=== PATIENT | male | born 1960 | race Two or more races ===

== ENCOUNTER 2023-02-28 09:05 | Outpatient (OUT) | payer OTHER, SELFPAY ==
[2023-02-28 09:24] LABS: Basophils Absolute Auto 0.1 10^3/uL (0.0-0.1); Basophils Percent Auto 0.7 % (0.2-2.0); Eosinophils Absolute Auto 0.2 10^3/uL (0.0-0.7); Eosinophils Percent Auto 1.9 % (0.9-7.0); Hematocrit 45.3 % (42.0-54.0); Immature Granulocytes Abs Auto 0.03 10^3/uL (0.00-0.03); Immature Granulocytes Pct Auto 0.3 % (0.0-0.5); Lymphocytes Absolute Auto 3.1 10^3/uL (1.2-3.8); Lymphocytes Percent Auto 35.9 % (20.5-60.0); Mean Corpuscular HGB Conc 33.1 g/dL (29.9-35.2); Mean Corpuscular Hemoglobin 31.5 pg (25.9-34.0); Mean Corpuscular Volume 95.2 fL (80.0-94.0); Mean Platelet Volume 10.9 fL (9.5-13.5); Monocytes Absolute Auto 0.6 10^3/uL (0.3-0.8); Monocytes Percent Auto 7.3 % (1.7-12.0); Neutrophils Absolute Auto 4.7 10^3/uL (1.4-6.5); Neutrophils Percent Auto 53.9 % (43.0-75.0); Platelet Count 167 10^3/uL (150-450); Red Blood Count 4.76 10^6/uL (4.70-6.10); Red Cell Distribution Width 12.6 % (11.0-15.0); White Blood Count 8.7 10^3/uL (4.0-11.0)
[2023-02-28 09:53] LABS: Estimated Average Glucose 197 mg/dL; Glycohemoglobin A1C 8.5 % (4.5-6.2)
[2023-02-28 10:07] LABS: Alanine Aminotransferase 49 U/L (16-63); Albumin Globulin Ratio 0.8; Albumin Level 3.2 g/dL (3.4-5.0); Alkaline Phosphatase 54 U/L (46-116); Anion Gap 12.4; Aspartate Amino Transferase 29 U/L (15-37); Bilirubin Direct 0.1 mg/dL (0.0-0.2); Bilirubin Total 0.7 mg/dL (0.2-1.0); Calcium 8.4 mg/dL (8.5-10.1); Carbon Dioxide 29.1 mmol/L (21.0-32.0); Chloride 104 mmol/L (98-107); Chol HDL Ratio 4.1; Cholesterol 165 mg/dL (<=200); Estimated GFR (African America >60 (>=60); Estimated GFR (Non-African Ame >60 (>=60); Globulin 4.1 g/dL; Glucose 209 mg/dL (74-106); HDL Cholesterol 40 mg/dL (40-60); LDL Cholesterol Calculated 98.8 mg/dL; Potassium 4.5 mmol/L (3.5-5.1); Sodium 141 mmol/L (136-145); Thyroid Stimulating Hormone 1.733 uIU/mL (0.358-3.740); Total Protein 7.3 g/dL (6.4-8.2); Triglycerides 131 mg/dL (<=150); VLDL CHOLESTEROL 26.2 mg/dL
[2023-02-28 11:05] LABS: Prostate Specific Antigen Scrn 1.24 ng/mL (<=4.00)
== END 2023-02-28 09:06 | disposition home or self-care (01) ==
LOC: LAB 09:06
PROVIDERS: PCP Family Medicine; Visit Provider Family Medicine
DX: Z00.00 Encounter for general adult medical examination without abnormal findings (principal); Z12.5 Encounter for screening for malignant neoplasm of prostate
CPT/HCPCS: 36415; 80048; 80061; 80076; 83036; 84443; 85025; G0103

== ENCOUNTER 2023-12-25 09:34 | Outpatient (OUT) | payer OTHER, SELFPAY ==
--- OUTSIDE RECORDS SUMMARY | 2023-12-25 09:58 | XMS_ITS | CCD ---
Author Organization [facility] Providers Care Enamel Pulverizer Name Role Phone Oskar Johnson Unavailable [phone] Stacie Muro Unavailable DominickGirma topete Unavailable ADAN, DR RENETTA Cobb Admitting Unavailable NADERER, DR RENETTA Cobb Attending Unavailable NADERER, DR RENETTA Cobb Primary Care Unavailable NADERER, DR RENETTA Cobb Consulting Unavailable NADERER, DR RENETTA Cobb Admitting Unavailable NADERER, DR RENETTA Cobb Attending Unavailable NADERER, DR RENETTA Cobb Primary Care Unavailable NADERER, DR RENETTA Cobb Consulting Unavailable NADERER, DR RENETTA Cobb Admitting Unavailable NADERER, DR RENETTA Cobb Attending Unavailable NADERER, DR RENETTA Cobb Primary Care Unavailable NADERER, DR RENETTA Cobb Consulting Unavailable [place], DR CASTILLO Primary Care Unavailable YOLI ., DR CASTILLO Consulting Unavailable NADERER, DR RENETTA Cobb Admitting Unavailable NADERER, DR RENETTA Cobb Attending Unavailable NADERER, DR RENETTA Cobb Consulting Unavailable STEPHANIE, MISBAH Consulting Unavailable LAITH, SHAIKH Isaac Consulting Unavailable KIZZY SINHA Consulting Unavailable JEAN PIERRE, ROVERTO Consulting Unavailable NADERER, RENETTA Attending Unavailable NADERER, RENETTA Attending Unavailable Medications Current Medications Medication Drug Class(es) Dates Sig (Normalized) Sig (Original) Ascorbic Acid (5 sources) Vitamin C Vitamin C Active glimepiride 4 mg oral tablet (5 sources) Sulfonylurea take 1 tablet by mouth every twelve hours Glimepiride 4 MG 1 tablet with breakfast or the first main meal of the day Orally BID Active Insulin Glargine / Lixisenatide (5 sources) Insulin Analog inject 15 [IU] by subcutaneous injection once daily Soliqua 100/33 15 Units Subcutaneous Daily Active lisinopril 20 mg oral tablet (5 sources) Angiotensin Converting Enzyme Inhibitor take 1 tablet by mouth every twenty-four hours Lisinopril 20 MG 1 tablet Orally Once a day Active metFORMIN hydrochloride 1000 mg oral tablet (5 sources) Biguanide take 1 tablet by mouth every twelve hours metFORMIN HCl 1000 MG 1 tablet with a meal Orally BID Active tamsulosin hydrochloride 0.4 mg oral capsule (2 sources) alpha-Adrenergic Shannan take 1 capsule by mouth every twenty-four hours Tamsulosin HCl 0.4 MG 1 capsule Orally Once a day Active Vitamin D3 (5 sources) Vitamin D3 Activ e Zinc (5 sources) Zinc Active Problems Active Problems Problem Classification Problem Date Documented Date Episodic/Chronic Coagulation and hemorrhagic disorders (1 source) Thrombocytopenia, unspecified; Translations: [THROMBOCYTOPENIA UNSPECIFIED] Onset: 08-21-2021 Chronic Diabetes mellitus with complications (8 sources) Disorder due to type 2 diabetes mellitus; Translations: [Type 2 diabetes mellitus with unspecified complications] Onset: 06-11-2021 Resolved: 06-11-2021 Chronic Diabetes mellitus without complication (1 source) Type 2 diabetes mellitus without complications; Translations: [TYPE 2 DM WITHOUT COMPLICATIONS] Onset: 08-21-2021 Chronic Diseases of white blood cells (1 source) Neutropenia, unspecified; Translations: [NEUTROPENIA UNSPECIFIED] Onset: 08-21-2021 Chronic Diverticulosis and diverticulitis (6 sources) Diverticular disease of colon; Translations: [Diverticulosis of intestine, part unspecified, without perforation or abscess without bleeding] Onset: 03-07-2021 Resolved: 03-07-2021 Chronic Esophageal disorders (5 sources) Gastroesophageal reflux disease; Translations: [Gastro-esophageal reflux disease without esophagitis] Onset: 06-11-2021 Resolved: 06-11-2021 Chronic Essential hypertension (1 source) Essential (primary) hypertension; Translations: [ESSENTIAL PRIMARY HYPERTENSION] Onset: 08-21-2021 Chronic Osteoarthritis (4 sources) Osteoarthritis of knee; Translations: [Osteoarthritis of knee, unspecified] Onset: 06-11-2021 Resolved: 06-11-2021 Chronic Other liver diseases (5 sources) Steatosis of liver; Translations: [Fatty (change of) liver, not elsewhere classified] Chronic Other liver diseases (2 sources) Fatty (change of) liver, not elsewhere classified; Translations: [Fatty liver K76.0] Onset: 03-07-2021 Resolved: 06-11-2021 Chronic Other nutritional; endocrine; and metabolic disorders (3 sources) Metabolic syndrome X; Translations: [Metabolic syndrome] Chronic Other nutritional; endocrine; and metabolic disorders (1 source) Metabolic syndrome Onset: 06-11-2021 Resolved: 06-11-2021 Chronic Unclassified (1 source) CONTACT W/AND (SUSP) EXPOS COVID-19; Translations: [CONTACT W/AND (SUSP) EXPOS COVID-19] Onset: 08-21-2021 Past or Other Problems Problem Classification Problem Date Documented Da te Episodic/Chronic Abdominal hernia (6 sources) Hiatal hernia; Translations: [Diaphragmatic hernia without obstruction or gangrene] Onset: 03-07-2021 Resolved: 03-07-2021 Episodic Abdominal pain (6 sources) Right upper quadrant pain; Translations: [Right upper quadrant pain] Onset: 03-07-2021 Resolved: 03-07-2021 Episodic Acute and unspecified renal failure (1 source) Acute kidney failure, unspecified; Translations: [ACUTE KIDNEY FAILURE UNSPECIFIED] Onset: 08-21-2021 Episodic Esophageal disorders (5 sources) Esophagitis; Translations: [Esophagitis] Episodic Hemorrhoids (6 sources) Hemorrhoids; Translations: [Unspecified hemorrhoids] Onset: 03-07-2021 Resolved: 03-07-2021 Episodic Other aftercare (1 source) 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; 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] Onset: 08-21-2021 Episodic Other circulatory disease (1 source) Elevated blood-pressure reading, without diagnosis of hypertension Onset: 06-11-2021 Resolved: 06-11-2021 Episodic Other lower respiratory disease (1 source) Acute respiratory distress; Translations: [ACUTE RESPIRATORY DISTRESS] Onset: 08-21-2021 Episodic Other nutritional; endocrine; and metabolic disorders (1 source) Abnormal weight gain Onset: 06-11-2021 Resolved: 06-11-2021 Episodic Other screening for suspected conditions (not mental disorders or infectious disease) (1 source) Encounter for screening for malignant neoplasm of prostate; Translations: [ENC SCREEN MALIG NEOPLASM PROSTATE] Onset: 09-12-2021 Episodic Septicemia (except in labor) (2 sources) Sepsis due to Escherichia coli [E. coli]; Translations: [Severe sepsis without septic shock] Onset: 08-21-2021 Episodic Unclassified (1 source) Esophagitis K20.90; Translations: [Esophagitis K20.90] Onset: 03-07-2021 Resolved: 03-07-2021 Urinary tract infections (3 sources) Acute pyelonephritis; Translations: [ACUTE PYELONEPHRITIS] Onset: 08-16-2021 Episodic Results Test Name Value Interpretation Reference Range Facility GLYCOHEMOGLOBIN A1Con 2022 ADA RECOMMENDATION SEE BELOW Normal [facility] Comment on above: Result Comment: ADA RECOMMENDED LIMIT 4.0 - 6.0 ADA THERAPEUTIC TARGET < 7.0 ACTION SUGGESTED > 7.0 Performed By: #### C FANTASMAMAN #### [facility] [address] [place] [address] Dr. Marta Ashford Glucose [Mass/Vol] 243 mg/dL Normal [facility] Comment on above: Performed By: #### C FANTASMAMAN #### [facility] [address] [place] [address] Dr. Marta Ashford HbA1c (Bld) [Mass fraction] 10.1 % Critically high 4.5-6.2 [facility] Comment on above: Performed By: #### C FANTASMAMAN #### [facility] [address] [place] [address] Dr. Marta Ashford GLYCOHEMOGLOBIN A1Con 2021 ADA RECOMMENDATION SEE BELOW Normal [facility] Comment on above: Result Comment: ADA RECOMMENDED LIMIT 4.0 - 6.0 ADA THERAPEUTIC TARGET < 7.0 ACTION SUGGESTED > 7.0 Performed By: #### A 1C #### [facility] [address] [place] [address] Dr. Marta Ashford Glucose [Mass/Vol] 266 mg/dL Normal [facility] Comment on above: Performed By: #### A 1C #### [facility] [address] [place] [address] Dr. Marta Ashford HbA1c (Bld) [Mass fraction] 10.9 % Critically high 4.5-6.2 [facility] Comment on above: Performed By: #### A 1C #### [facility] [address] [place] [address] Dr. Marta Ashford CBC AUTO DIFFon 09-10-2021 BASO # 0.1 103/ul Normal 0.0-0.1 [facility] Comment on above: Performed By: #### A 1C #### [facility] [address] [place] [address] Dr. Marta Ashford Basophils/100 WBC (Bld) 0.7 % Normal 0.2-2.0 [facility] Comment on above: Performed By: #### A 1C #### [facility] [address] [place] [address] Dr. Marta Ashford EO # 0.3 103/ul Normal 0.0-0.7 [facility] Comment on above: Performed By: #### A 1C #### [facility] [address] [place] [address] Dr. Marta Ashford Eosinophils/100 WBC (Bld) 2.9 % Normal 0.9-7.0 [facility] Comment on above: Performed By: #### A 1C #### [facility] [address] [place] [address] Dr. Marta Ashford Erythrocyte distribution width (RBC) [Ratio] 12.6 % Normal 11.0-15.0 [facility] Comment on above: Performed By: #### A 1C #### [facility] [address] [place] [address] Dr. Marta Ashford Hematocrit (Bld) [Volume fraction] 45.0 % Normal 42.0-54.0 [facility] Comment on above: Performed By: #### A 1C #### [facility] [address] [place] [address] Dr. Marta Ashford Hemoglobin (Bld) [Mass/Vol] 14.4 g/dL Normal 14.0-18.0 [facility] Comment on above: Performed By: #### A 1C #### [facility] [address] [place] [address] Dr. Marta Ashford IG # 0.06 10e3/ul Critically high 0.00-0.03 [facility] Comment on above: Performed By: #### A 1C #### [facility] [address] [place] [address] Dr. Marta Ashford IG % 0.6 % Critically high 0.0-0.5 [facility] Comment on above: Performed By: #### A 1C #### [facility] [address] [place] [address] Dr. Marta Ashford LYMPH # 3.3 103/ul Normal 1.2-3.8 [facility] Comment on above: Performed By: #### A 1C #### [facility] [address] [place] [address] Dr. Marta Ashford Lymphocytes/100 WBC (Bld) 34.5 % Normal 20.5-60.0 [facility] Comment on above: Performed By: #### A 1C #### [facility] [address] [place] [address] Dr. Marta Ashford MANUAL DIFF REQ NO Normal [facility] Comment on above: Performed By: #### A 1C #### [facility] [address] [place] [address] Dr. Marta Ashford MCH (RBC) [Entitic mass] 31.0 pg Normal 25.9-34.0 [facility] Comment on above: Performed By: #### A 1C #### [facility] [address] [place] [address] Dr. Marta Ashford MCHC (RBC) [Mass/Vol] 32.0 g/dL Normal 29.9-35.2 [facility] Comment on above: Performed By: #### A 1C #### [facility] [address] [place] [address] Dr. Marta Ashford MCV (RBC) [Entitic vol] 96.8 fL Critically high 80.0-94.0 [facility] Comment on above: Performed By: #### A 1C #### [facility] [address] [place] [address] Dr. Marta Ashford MONO # 0.7 103/ul Normal 0.3-0.8 [facility] Comment on above: Performed By: #### A 1C #### [facility] [address] [place] [address] Dr. Marta Ashford Monocytes/100 WBC (Bld) 7.8 % Normal 1.7-12.0 [facility] Comment on above: Performed By: #### A 1C #### [facility] [address] [address] [address] Marta Ashford NEUT # 5.1 103/ul Normal 1.4-6.5 [facility] [place] Comment on above: Performed By: #### A 1C #### [facility] [address] [address] [address] Marta Ashford Neutrophils/100 WBC (Bld) 53.5 % Normal 43.0-75.0 [facility] Comment on above: Performed By: #### A 1C #### [facility] [address] [address] [address] Marta Ashford Platelet mean volume (Bld) [Entitic vol] 12.3 fL Normal 9.5-13.5 [facility] Comment on above: Performed By: #### A 1C #### [facility] [address] [address] [address] Marta Ashford PLT 170 103/ul Normal 150-450 [facility] Comment on above: Performed By: #### A 1C #### [facility] [address] [address] [address] Marta Ashford RBC 4.65 106/ul Critically low 4.70-6.10 [facility] Comment on above: Performed By: #### A 1C #### [facility] [address] [place] [address] Dr. Marta Ashford WBC 9.5 103/ul Normal 4.0-11.0 [facility] Comment on above: Performed By: #### A 1C #### [facility] [address] [address] [address] Marta Ashford DIRECT LDLon 09-10-2021 Cholesterol in LDL [Mass/Vol] 96 mg/dL Normal [facility] Comment on above: Performed By: #### C BCMAN #### [facility] [address] [address] [address] Marta Ashford DLDL NORMAL SEE BELOW Normal [facility] Comment on above: Result Comment: <100 mg/dl OPTIMAL 100 - 129 mg/dl NEAR OR ABOVE OPTIMAL 130 - 159 mg/dl BORDERLINE HIGH 160 - 189 mg/dl HIGH >190 mg/dl VERY HIGH Performed By: #### C JIMENA #### [facility] [address] [place] [address] Dr. Marta Ashford GLYCOHEMOGLOBIN A1Con 2021 ADA RECOMMENDATION SEE BELOW Normal [facility] Comment on above: Result Comment: ADA RECOMMENDED LIMIT 4.0 - 6.0 ADA THERAPEUTIC TARGET < 7.0 ACTION SUGGESTED > 7.0 Performed By: #### A 1C #### [facility] [address] [place] [address] Dr. Marta Ashford Glucose [Mass/Vol] 223 mg/dL Normal [facility] Comment on above: Performed By: #### A 1C #### [facility] [address] [place] [address] Dr. Marta Ashford HbA1c (Bld) [Mass fraction] 9.4 % Critically high 4.5-6.2 [facility] Comment on above: Performed By: #### A 1C #### [facility] [address] [place] [address] Dr. Marta Ashford LIPID PROFILEon 09-10-2021 CHOL-HDL RATIO NORM SEE BELOW Normal [facility] Comment on above: Result Comment: 3.3 - 4.4 LOW RISK 4.4 - 7.1 AVERAGE RISK 7.1 - 11.0 MODERATE RISK >11.0 HIGH RISK Performed By: #### C JIMENA #### [facility] [address] [place] [address] Dr. Marta Ashford Cholesterol [Mass/Vol] 209 mg/dL Critically high <=200 [facility] Comment on above: Performed By: #### C JIMENA #### [facility] [address] [address] [address] Marta Ashford Cholesterol in HDL [Mass/Vol] 34 mg/dL Critically low 40-60 [facility] Comment on above: Performed By: #### C JIMENA #### [facility] [address] [place] [address] Dr. Marta Ashford Cholesterol.total/Chol esterol in HDL [Mass ratio] 6.1 {ratio} Normal [facility] Comment on above: Performed By: #### C JIMENA #### [facility] [address] [address] [address] Marta Ashford HDL NORMAL > or = 60 mg/dl - LO W CARDIOVASCULAR RISK <40 mg/dl - HIGH CARDIOVASCULAR RISK Normal [facility] Comment on above: Performed By: #### C JIMENA #### [facility] [address] [address] [address] Marta Ashford LDL CALC NORMAL SEE BELOW Normal [facility] Comment on above: Result Comment: <100 mg/dl OPTIMAL 100 - 129 mg/dl NEAR OR ABOVE OPTIMAL 130 - 159 mg/dl BORDERLINE HIGH 160 - 189 mg/dl HIGH >190 mg/dl VERY HIGH Performed By: #### C JIMENA #### [facility] [address] [address] [address] Marta Ashford Triglyceride [Mass/Vol] 591 mg/dL Critically high <=150 [facility] Comment on above: Performed By: #### C JIMENA #### [facility] [address] [place] [address] Dr. Marta Ashford VLDL CALC 118.2 mg/dL Normal [facility] Comment on above: Performed By: #### C JIMENA #### [facility] [address] [place] [address] Dr. Marta Ashford LIVER PROFILEon 09-10-2021 Albumin [Mass/Vol] 3.6 g/dL Normal 3.4-5.0 [facility] Comment on above: Performed By: #### C JIMENA #### [facility] [address] [place] [address] Dr. Marta Ashford Albumin/Globulin [Mass ratio] 0.9 {ratio} Normal [facility] Comment on above: Performed By: #### C JIMENA #### [facility] [address] [place] [address] Dr. Marta Ashford ALP [Catalytic activity/Vol] 75 U/L Normal 46-116 [facility] Comment on above: Performed By: #### C JIMENA #### [facility] [address] [address] [address] Marta Ashford ALT [Catalytic activity/Vol] 40 U/L Normal 16-63 [facility] Comment on above: Performed By: #### C JIMENA #### [facility] [address] [address] [address] Marta Ashford AST [Catalytic activity/Vol] 24 U/L Normal 15-37 [facility] Comment on above: Performed By: #### C JIMENA #### [facility] [address] [address] [address] Marta Ashford BILI, CONJUGATED 0.1 mg/dL Normal 0.0-0.2 [facility] Comment on above: Performed By: #### C JIMENA #### [facility] [address] [place] [address] Dr. Marta Ashford Bilirubin [Mass/Vol] 0.3 mg/dL Normal 0.2-1.0 [facility] Comment on above: Performed By: #### C JIMENA #### [facility] [address] [place] [address] Dr. Marta Ashford Globulin (S) [Mass/Vol] 4.1 g/dL Normal [facility] Comment on above: Performed By: #### C JIMENA #### [facility] [address] [place] [address] Dr. Marta Ashford Protein [Mass/Vol] 7.7 g/dL Normal 6.1-8.2 [facility] Comment on above: Performed By: #### C JIMENA #### [facility] [address] [place] [address] Dr. Marta Ashford PROF CHEM 8 (BAS METB)on Anion gap [Moles/Vol] 11.0 mmol/L Normal [facility] Comment on above: Performed By: #### C JIMENA #### [facility] [address] [place] [address] Dr. Marta Ashford Calcium [Mass/Vol] 8.6 mg/dL Normal 8.5-10.1 [facility] Comment on above: Performed By: #### C JIMENA #### [facility] [address] [address] [address] Marta Ashford Chloride [Moles/Vol] 99 mmol/L Normal 98-107 [facility] Comment on above: Performed By: #### C JIMENA #### [facility] [address] [place] [address] Dr. Marta Ashford CO2 [Moles/Vol] 27.0 mmol/L Normal 21.0-32.0 [facility] Comment on above: Performed By: #### C JIMENA #### [facility] [address] [address] [address] Marta Ashford Creatinine [Mass/Vol] 1.00 mg/dL Normal 0.70-1.30 [facility] Comment on above: Performed By: #### C JIMENA #### [facility] [address] [address] [address] Marta Ashford EGFR-AF [place] ISLANDER >60 Normal >=60 [facility] Comment on above: Performed By: #### C JIMENA #### [facility] [address] [place] [address] Dr. Marta Ashford EGFR-NON AF [place]ER >60 Normal >=60 [facility] Comment on above: Performed By: #### C JIMENA #### [facility] [address] [place] [address] Dr. Marta Ashford Glucose [Mass/Vol] 289 mg/dL Critically high 74-106 [facility] Comment on above: Performed By: #### C JIMENA #### [facility] [address] [address] [address] Marta Ashford Potassium [Moles/Vol] 4.0 mmol/L Normal 3.5-5.1 [facility] Comment on above: Performed By: #### C JIMENA #### [facility] [address] [place] [address] Dr. Marta Ashford Sodium [Moles/Vol] 133 mmol/L Critically low 136-145 [facility] Comment on above: Performed By: #### C JIMENA #### [facility] [address] [place] [address] Dr. Marta Ashford Urea nitrogen [Mass/Vol] 21.0 mg/dL Critically high 7.0-18.0 [facility] Comment on above: Performed By: #### C JIMENA #### [facility] [address] [place] [address] Dr. Marta Ashford Urea nitrogen/Creatinine [Mass ratio] 21.0 mg/mg Normal [facility] Comment on above: Performed By: #### C JIMENA #### [facility] [address] [place] [address] Dr. Marta Ashford TSHon 09-10-2021 TSH 2.331 uIU/mL Normal 0.470-4.680 [facility] Comment on above: Performed By: #### C JIMENA #### [facility] [address] [place] [address] Dr. Marta Ashford TSH RANGE SEE BELOW Normal [facility] Comment on above: Result Comment: <0.3 4 UIU/ml HYPERTHYROID 0.34-5.60 UIU/ml EUTHYROID >5.60 UIU/ml HYPOTHYROID Performed By: #### C JIMENA #### [facility] [address] [place] [address] Dr. Marta Ashford BLOOD CULTURE ID/SENSon 08-09 Aerobe ID + Suscept Final report Abnormal [facility] Comment on above: Performed By: #### C XPOSBL #### [facility] [address] [place] [address] Dr. Marta Ashford Antimicrobial Susceptibility Comment Normal [facility] Comment on above: Result Comment: S = Susceptible; I = Intermediate; R = Resistant P = Positive; N = Negative MICS are expressed in micrograms per mL Antibiotic RSLT#1 RSLT#2 RSLT#3 RSLT#4 Amoxicillin/Clavulanic Acid S Ampicillin R Cefepime S Ceftriaxone S Cefuroxime S Ciprofloxacin S Ertapenem S Gentamicin S Imipenem S Levofloxacin S Meropenem S Piperacillin/Tazobactam S Tetracycline S Tobramycin S Trimethoprim/Sulfa S Performed By: #### C XPOSBL #### [facility] [address] [place] [address] Dr. Marta Ashford Result 1 Comment Abnormal [facility] Comment on above: Result Comment: Esch erichia coli, identified by an automated biochemical system. Received aerobic bottle only. Performed By: #### C XPOSBL #### [facility] [address] [place] [address] Dr. Marta Ashford CBC AUTO DIFFon 08-18-2021 BASO # 0.1 103/ul Normal 0.0-0.1 [facility] Comment on above: Performed By: #### A 1C #### [facility] [address] [place] [address] Dr. Marta Ashford Basophils/100 WBC (Bld) 0.5 % Normal 0.2-2.0 [facility] Comment on above: Performed By: #### A 1C #### [facility] [address] [place] [address] Dr. Marta Ashford EO # 0.1 103/ul Normal 0.0-0.7 [facility] Comment on above: Performed By: #### A 1C #### [facility] [address] [place] [address] Dr. Marta Ashford Eosinophils/100 WBC (Bld) 0.8 % Critically low 0.9-7.0 [facility] Comment on above: Performed By: #### A 1C #### [facility] [address] [place] [address] Dr. Marta Ashford Erythrocyte distribution width (RBC) [Ratio] 12.8 % Normal 11.0-15.0 [facility] Comment on above: Performed By: #### A 1C #### [facility] [address] [place] [address] Dr. Marta Ashford Hematocrit (Bld) [Volume fraction] 40.1 % Critically low 42.0-54.0 [facility] [facility] Comment on above: Performed By: #### A 1C #### [facility] [address] [place] [address] Dr. Marta Ashford Hemoglobin (Bld) [Mass/Vol] 12.9 g/dL Critically low 14.0-18.0 [facility] Comment on above: Performed By: #### A 1C #### [facility] [address] [address] [address] Marta Ashford IG # 0.17 10e3/ul Critically high 0.00-0.03 [facility] Comment on above: Performed By: #### A 1C #### [facility] [address] [address] [address] Marta Ashford IG % 1.0 % Critically high 0.0-0.5 [facility] [place] Comment on above: Performed By: #### A 1C #### [facility] [address] [address] [address] Marta Ashford LYMPH # 3.3 103/ul Normal 1.2-3.8 [facility] Comment on above: Performed By: #### A 1C #### [facility] [address] [place] [address] Dr. Marta Ashford Lymphocytes/100 WBC (Bld) 19.0 % Critically low 20.5-60.0 [facility] [place] Comment on above: Performed By: #### A 1C #### [facility] [address] [place] [address] Dr. Marta Ashford MANUAL DIFF REQ NO Normal [facility] [place] Comment on above: Performed By: #### A 1C #### [facility] [address] [place] [address] Dr. Marta Ashford MCH (RBC) [Entitic mass] 30.5 pg Normal 25.9-34.0 [facility] [place] Comment on above: Performed By: #### A 1C #### [facility] [address] [address] [address] Marta Ashford MCHC (RBC) [Mass/Vol] 32.2 g/dL Normal 29.9-35.2 [facility] [place] Comment on above: Performed By: #### A 1C #### [facility] [address] [place] [address] Dr. Marta Ashford MCV (RBC) [Entitic vol] 94.8 fL Critically high 80.0-94.0 [facility] [place] Comment on above: Performed By: #### A 1C #### [facility] [address] [address] [address] Marta Ashford MONO # 1.2 103/ul Critically high 0.3-0.8 [facility] Comment on above: Performed By: #### A 1C #### [facility] [address] [place] [address] Dr. Marta Ashford Monocytes/100 WBC (Bld) 6.7 % Normal 1.7-12.0 [facility] Comment on above: Performed By: #### A 1C #### [facility] [address] [place] [address] Dr. Marta Ashford NEUT # 12.5 103/ul Critically high 1.4-6.5 [facility] [place] [facility] Comment on above: Performed By: #### A 1C #### [facility] [address] [place] [address] Dr. Marta Ashford Neutrophils/100 WBC (Bld) 72.0 % Normal 43.0-75.0 [facility] Comment on above: Performed By: #### A 1C #### [facility] [address] [place] [address] Dr. Marta Ashford Platelet mean volume (Bld) [Entitic vol] 11.8 fL Normal 9.5-13.5 [facility] Comment on above: Performed By: #### A 1C #### [facility] [address] [place] [address] Dr. Marta Ashford PLT 149 103/ul Critically low 150-450 [facility] Comment on above: Performed By: #### A 1C #### [facility] [address] [place] [address] Dr. Marta Ashford RBC 4.23 106/ul Critically low 4.70-6.10 [facility] Comment on above: Performed By: #### A 1C #### [facility] [address] [place] [address] Dr. Marta Ashford WBC 17.4 103/ul Critically high 4.0-11.0 [facility] [place] [facility] Comment on above: Performed By: #### A 1C #### [facility] [address] [place] [address] Dr. Marta Ashford CULTURE URINEon 04-10-2022 CULTURE URINE Isolate 1 Escherichia coli >100,000 cfu/ml of ORGANISM 1 Escherichia coli ANTIBIOTIC M.I.C RX STATUS Ampicillin >=32 R F Ampicillin/Sulbactam >=32 R F Piperacillin/Tazobact am <=4 S F Cefazolin <=4 S F Ceftazidime <=1 S F Ceftriaxone <=1 S F Ertapenem <=0.5 S F Imipenem <=0.25 S F Amikacin <=2 S F Gentamicin <=1 S F Tobramycin <=1 S F Ciprofloxacin <=0.25 S F Levofloxacin <=0.12 S F Nitrofurantoin <=16 S F Trimethoprim/Sulfamet hoxazole <=20 S F Normal [facility] [place] Comment on above: Performed By: #### A 1C #### [facility] [address] [place] [address] Dr. Marta Ashford PH VENOUS BLOODon 08-18-2021 PCO2 VENOUS 36.1 mmHg Critically low 40.0-52.0 [facility] [place] Comment on above: Performed By: #### A 1C #### [facility] [address] [place] [address] Dr. Marta Ashford pH VENOUS 7.452 Critically high 7.330-7.430 [facility] Comment on above: Performed By: #### A 1C #### [facility] [address] [place] [address] Dr. Marta Ashford POINT OF CARE GLUCOSEon 08-09 Glucose [Mass/Vol] 276 mg/dL Critically high 74-106 [facility] Comment on above: Performed By: #### P OCGLUC #### [facility] [address] [place] [address] Dr. Marta Ashford PROF CHEM 8 (BAS METB)on Anion gap [Moles/Vol] 12.5 mmol/L Normal [facility] Comment on above: Performed By: #### P HVEN #### [facility] [address] [place] [address] Dr. Marta Ashford Calcium [Mass/Vol] 8.5 mg/dL Normal 8.5-10.1 [facility] Comment on above: Performed By: #### P HVEN #### [facility] [address] [address] [address] Marta Ashford Chloride [Moles/Vol] 105 mmol/L Normal 98-107 [facility] [place] Comment on above: Performed By: #### P HVEN #### [facility] [address] [address] [address] Marta Ashford CO2 [Moles/Vol] 25.5 mmol/L Normal 22.0-30.0 [facility] Comment on above: Performed By: #### P HVEN #### [facility] [address] [address] [address] Marta Ashford Creatinine [Mass/Vol] 0.90 mg/dL Normal 0.66-1.25 [facility] [place] Comment on above: Performed By: #### P HVEN #### [facility] [address] [address] [address] Marta Ashford EGFR-AF [place]ER >60 Normal >=60 [facility] Comment on above: Performed By: #### P HVEN #### [facility] [address] [address] [address] Marta Ashford EGFR-NON AF [place] >60 Normal >=60 [facility] [place] Comment on above: Performed By: #### P HVEN #### [facility] [address] [address] [address] Marta Ashford Glucose [Mass/Vol] 239 mg/dL Critically high 74-106 [facility] Comment on above: Performed By: #### P HVEN #### [facility] [address] [address] [address] Marta Ashford Potassium [Moles/Vol] 4.0 mmol/L Normal 3.4-5.0 [facility] [place] Comment on above: Performed By: #### P HVEN #### [facility] [address] [address] [address] Marta Ashford Sodium [Moles/Vol] 139 mmol/L Normal 137-145 [facility] Comment on above: Performed By: #### P HVEN #### [facility] [address] [place] [address] Dr. Marta Ashford Urea nitrogen [Mass/Vol] 13.0 mg/dL Normal 7.0-18.0 [facility] [place] Comment on above: Performed By: #### P HVEN #### [facility] [address] [place] [address] Dr. Marta Ashford Urea nitrogen/Creatinine [Mass ratio] 14.4 mg/mg Normal [facility] Comment on above: Performed By: #### P HVEN #### [facility] [address] [place] [address] Dr. Marta Ashford CBC W MANUAL DIFFon 08-18-19 22 ATYPICAL LYMPH # Normal [facility] Comment on above: Performed By: #### C JIMENA #### [facility] [address] [place] [address] Dr. Marta Ashford ATYPICAL LYMPH % Normal [facility] Comment on above: Performed By: #### C JIMENA #### [facility] [address] [place] [address] Dr. Marta Ashford BAND # 2.7 103/ul Critically high 0.0-0.3 [facility] Comment on above: Performed By: #### C JIMENA #### [facility] [address] [place] [address] Dr. Marta Ashford BAND % 15 % Critically high 0-5 [facility] Comment on above: Performed By: #### C JIMENA #### [facility] [address] [place] [address] Dr. Marta Ashford BASOM # 0.00 103/ul Normal 0.00-0.10 [facility] Comment on above: Performed By: #### C JIMENA #### [facility] [address] [place] [address] Dr. Marta Ashford BASOM % 0.0 % Critically low 0.2-2.0 [facility] Comment on above: Performed By: #### C JIMENA #### [facility] [address] [place] [address] Dr. Marta Ashford BLAST # Normal [facility] [place] Comment on above: Performed By: #### C BCVALERY #### [facility] [address] [address] [address] Marta Ashford BLAST % Normal [facility] [place] Comment on above: Performed By: #### C BCVALERY #### [facility] [address] [address] [address] Marta Ashford CORRECTED WBC Normal 4.0-11.0 [facility] Comment on above: Performed By: #### C BCMAN #### [facility] [address] [address] [address] Marta Ashford EOS # 0.00 103/ul Normal 0.00-0.70 [facility] [place] Comment on above: Performed By: #### C BCVALERY #### [facility] [address] [place] [address] Dr. Marta Ashford EOS% 0.0 % Critically low 0.9-7.0 [facility] Comment on above: Performed By: #### C JIMENA #### [facility] [address] [place] [address] Dr. Marta Ashford HCT 37.5 % Critically low 42.0-54.0 [facility] Comment on above: Performed By: #### C JIMENA #### [facility] [address] [place] [address] Dr. Marta Ashford HGB 12.1 g/dl Critically low 14.0-18.0 [facility] Comment on above: Performed By: #### C BCVALERY #### [facility] [address] [place] [address] Dr. Marta Ashford LYMPHM # 3.20 103/ul Normal 1.20-3.80 [facility] [place] Comment on above: Performed By: #### C BCVALERY #### [facility] [address] [place] [address] Dr. Marta Ashford LYMPHM% 18.0 % Critically low 20.5-60.0 [facility] Comment on above: Performed By: #### C JIMENA #### [facility] [address] [address] [address] Marta Ashford MCH 31.2 pg Normal 25.9-34.0 [facility] [place] Comment on above: Performed By: #### C JIMENA #### [facility] [address] [address] [address] Marta Ashford MCHC 32.3 g/dl Normal 29.9-35.2 [facility] [place] Comment on above: Performed By: #### C JIMENA #### [facility] [address] [address] [address] Marta Ashford MCV 96.6 fL Critically high 80.0-94.0 [facility] [place] Comment on above: Performed By: #### C BCVALERY #### [facility] [address] [place] [address] Dr. Marta Ashford METAMYELOCYTE # Normal [facility] Comment on above: Performed By: #### C JIMENA #### [facility] [address] [place] [address] Dr. Marta Ashford METAMYELOCYTE % Normal [facility] Comment on above: Performed By: #### C JIMENA #### [facility] [address] [place] [address] Dr. Marta Ashford MONOM# 1.25 103/ul Critically high 0.30-0.80 [facility] Comment on above: Performed By: #### C JIMENA #### [facility] [address] [place] [address] Dr. Marta Ashford MONOM% 7.0 % Normal 1.7-12.0 [facility] [place] Comment on above: Performed By: #### C JIMENA #### [facility] [address] [place] [address] Dr. Marta Ashford MPV 11.4 fL Normal 9.5-13.5 [facility] [place] Comment on above: Performed By: #### C JIMENA #### [facility] [address] [place] [address] Dr. Marta Ashford MYELOCYTE # Normal [facility] Comment on above: Performed By: #### C JIMENA #### [facility] [address] [address] [address] Marta Ashford MYELOCYTE % Normal [facility] [place] Comment on above: Performed By: #### C JIMENA #### [facility] [address] [address] [address] Marta Ashford NRBC Normal [facility] Comment on above: Performed By: #### C BCVALERY #### [facility] [address] [address] [address] Marta Ashford PLT 106 103/ul Critically low 150-450 [facility] Comment on above: Performed By: #### C JIMENA #### [facility] [address] [address] [address] Marta Ashford RBC 3.88 106/ul Critically low 4.70-6.10 [facility] [place] Comment on above: Performed By: #### C JIMENA #### [facility] [address] [address] [address] Marta Ashford RDW 13.1 % Normal 11.0-15.0 [facility] [place] Comment on above: Performed By: #### C JIMENA #### [facility] [address] [address] [address] Marta Ashford SEG # 10.68 103/ul Critically high 1.40-6.50 [facility] Comment on above: Performed By: #### C JIMENA #### [facility] [address] [address] [address] Marta Ashford SEG % 60.0 % Normal 43.0-75.0 [facility] [place] Comment on above: Performed By: #### C BCMAN #### [facility] [address] [address] [address] Marta Ashford WBC 17.8 103/ul Critically high 4.0-11.0 [facility] Comment on above: Performed By: #### C BCMAN #### [facility] [address] [address] [address] Marta Ashford PH VENOUS BLOODon 08-17-2021 PCO2 VENOUS 37.5 mmHg Critically low 40.0-52.0 [facility] [place] Comment on above: Performed By: #### P HVEN #### [facility] [address] [address] [address] Marta Ashford pH VENOUS 7.390 Normal 7.330-7.430 [facility] [place] Comment on above: Performed By: #### P HVEN #### [facility] [address] [address] [address] Marta Ashford POINT OF CARE GLUCOSEon Glucose [Mass/Vol] 261 mg/dL Critically high [facility] Comment on above: Performed By: #### A 1C #### [facility] [address] [address] [address] Marta Ashford Glucose [Mass/Vol] 213 mg/dL Critically high [address] [place] [address] Comment on above: Performed By: #### A 1C #### [facility] [address] [place] [address] Dr. Marta Ashford Glucose [Mass/Vol] 305 mg/dL Critically high [facility] Comment on above: Performed By: #### A 1C #### [facility] [address] [place] [address] Dr. Marta Ashford PROF CHEM 8 (BAS METB)on Anion gap [Moles/Vol] 13.8 mmol/L Normal [facility] Comment on above: Performed By: #### A 1C #### [facility] [address] [address] [address] Marta Ashford Calcium [Mass/Vol] 7.3 mg/dL Critically low 8.5-10.1 [facility] Comment on above: Performed By: #### A 1C #### [facility] [address] [address] [address] Marta Ashford Chloride [Moles/Vol] 108 mmol/L Critically high 98-107 [facility] [place] Comment on above: Performed By: #### A 1C #### [facility] [address] [place] [address] Dr. Marta Ashford CO2 [Moles/Vol] 22.2 mmol/L Normal 22.0-30.0 [facility] Comment on above: Performed By: #### A 1C #### [facility] [address] [address] [address] Marta Ashford Creatinine [Mass/Vol] 0.95 mg/dL Normal 0.66-1.25 [facility] [place] Comment on above: Performed By: #### A 1C #### [facility] [address] [address] [address] Marta Ashford EGFR-AF [place] >60 Normal >=60 [facility] Comment on above: Performed By: #### A 1C #### [facility] [address] [address] [address] Marta Ashford EGFR-NON AF [place] >60 Normal >=60 [facility] [place] Comment on above: Performed By: #### A 1C #### [facility] [address] [address] [address] Marta Ashford Glucose [Mass/Vol] 181 mg/dL Critically high 74-106 [facility] Comment on above: Performed By: #### A 1C #### [facility] [address] [address] [address] Marta Ashford Potassium [Moles/Vol] 4.0 mmol/L Normal 3.4-5.0 [facility] [place] Comment on above: Performed By: #### A 1C #### [facility] [address] [place] [address] Dr. Marta Ashford Sodium [Moles/Vol] 140 mmol/L Normal 137-145 [facility] Comment on above: Performed By: #### A 1C #### [facility] [address] [place] [address] Dr. Marta Ashford Urea nitrogen [Mass/Vol] 17.0 mg/dL Normal 7.0-18.0 [facility] [place] Comment on above: Performed By: #### A 1C #### [facility] [address] [place] [address] Dr. Marta Ashford Urea nitrogen/Creatinine [Mass ratio] 17.9 mg/mg Normal [facility] [place] Comment on above: Performed By: #### A 1C #### [facility] [address] [place] [address] Dr. Marta Ashford BLOOD CULTURE ID PANELon A. baumannii Not detected Normal [facility] Comment on above: Performed By: #### A 1C #### [facility] [address] [place] [address] Dr. Marta GONSALEZD CONTROLS PASSED Normal [facility] Comment on above: Performed By: #### A 1C #### [facility] [address] [place] [address] Dr. Marta GONSALEZDBTHD BLOOD CULTURE BOTTLE INFORMATION [facility] Comment on above: Performed By: #### A 1C #### [facility] [address] [place] [address] Dr. Marta Ashford BCIDHD1 ANTIMICROBIAL RESISTANCE GENES [facility] Comment on above: Performed By: #### A 1C #### [facility] [address] [place] [address] Dr. Marta GONSALEZDHD2 SEE BELOW [facility] Comment on above: Result Comment: KPC- carbapenem resistance gene, mecA- methecillin resistance gene, van A/B- vancomycin resistance gene Note: Antimicrobial resitance can occur via multiple mechanisms. A Not Detected result for the [employer] antomicrobial resistance gene assays does not indicate antimicrobial susceptibility. Subculturing is required for specis identificationand susceptibility testing of isolates. Performed By: #### A 1C #### [facility] [address] [place] [address] Dr. Marta GONSALEZDHD3 Positive [facility] Comment on above: Performed By: #### A 1C #### [facility] [address] [place] [address] Dr. Marta GONSALEZDHD4 Negative [facility] Comment on above: Performed By: #### A 1C #### [facility] [address] [place] [address] Dr. Marta GONSALEZDHD5 YEAST [facility] Comment on above: Performed By: #### A 1C #### [facility] [address] [place] [address] Dr. Marta GONSALEZDHD6 SEE BELOW Normal [facility] [place] Comment on above: Result Comment: Note : All genus and species BCID [employer] results will be verified post subculturing via Maldi-Tof MS testing methodology. Performed By: #### A 1C #### [facility] [address] [place] [address] Dr. Marta Castillo Set: Set 2 Normal [facility] [place] Comment on above: Performed By: #### A 1C #### [facility] [address] [place] [address] Dr. Marta Ashford Bottle: Aerobic Normal [facility] [place] Comment on above: Performed By: #### A 1C #### [facility] [address] [place] [address] Dr. Marta Ashford Surekha albicans Not detected Normal [facility] Comment on above: Performed By: #### A 1C #### [facility] [address] [place] [address] Dr. Marta Ashford Surekha glabrata Not detected Normal [facility] Comment on above: Performed By: #### A 1C #### [facility] [address] [place] [address] Dr. Marta Ashford Surekha Krusei Not detected Normal [facility] Comment on above: Performed By: #### A 1C #### [facility] [address] [place] [address] Dr. Marta Ashford Surekha Parapsilosis Not detected Normal [facility] Comment on above: Performed By: #### A 1C #### [facility] [address] [place] [address] Dr. Marta Ashford Surekha Tropicalis Not detected Normal [facility] [place] Comment on above: Performed By: #### A 1C #### [facility] [address] [place] [address] Dr. Marta Ashford E. Cloacae complex Not detected Normal [facility] [place] Comment on above: Performed By: #### A 1C #### [facility] [address] [place] [address] Dr. Marta Ashford Enterobacteriaceae Detected Critically abnormal [facility] Comment on above: Performed By: #### A 1C #### [facility] [address] [place] [address] Dr. Marta Ashford Enterococcus Not detected Normal [facility] Comment on above: Performed By: #### A 1C #### [facility] [address] [place] [address] Dr. Marta Ashford Escheria coli Detected Critically abnormal [facility] [place] Comment on above: Performed By: #### A 1C #### [facility] [address] [place] [address] Dr. Marta Ashford K. oxytoca Not detected Normal [facility] [place] Comment on above: Performed By: #### A 1C #### [facility] [address] [place] [address] Dr. Marta Ashford K. pneumoniae Not detected Normal [facility] [place] Comment on above: Performed By: #### A 1C #### [facility] [address] [place] [address] Dr. Marta Ashford KPC Resistant Gene Not detected Normal [facility] [place] Comment on above: Performed By: #### A 1C #### [facility] [address] [place] [address] Dr. Marta Ashford List. monocytogenes Not detected Normal [facility] [place] Comment on above: Performed By: #### A 1C #### [facility] [address] [place] [address] Dr. Marta Ashford mecA Resistant Gene Not Applicable Normal [facility] Comment on above: Performed By: #### A 1C #### [facility] [address] [place] [address] Dr. Marta Ashford Proteus Not detected Normal [facility] [place] Comment on above: Performed By: #### A 1C #### [facility] [address] [place] [address] Dr. Marta Ashford Pseud. aeruginosa Not detected Normal [facility] Comment on above: Performed By: #### A 1C #### [facility] [address] [place] [address] Dr. Marta Ashford Seratia marcescens Not detected Normal [facility] [place] Comment on above: Performed By: #### A 1C #### [facility] [address] [place] [address] Dr. Marta Ashford Site: left hand Normal [facility] [facility] Comment on above: Performed By: #### A 1C #### [facility] [address] [place] [address] Dr. Marta Ashford Staph. aureus Not detected Normal [facility] Comment on above: Performed By: #### A 1C #### [facility] [address] [place] [address] Dr. Marta Ashford Staphylococcus Not detected Normal [facility] Comment on above: Performed By: #### A 1C #### [facility] [address] [place] [address] Dr. Marta Ashford Strep. agalactiae Not detected Normal [facility] Comment on above: Performed By: #### A 1C #### [facility] [address] [place] [address] Dr. Marta Ashford Strep. pneumoniae Not detected Normal [facility] Comment on above: Performed By: #### A 1C #### [facility] [address] [place] [address] Dr. Marta Ashford Strep. pyogenes Not detected Normal [facility] Comment on above: Performed By: #### A 1C #### [facility] [address] [place] [address] Dr. Marta Ashford Streptococcus Not detected Normal [facility] Comment on above: Performed By: #### A 1C #### [facility] [address] [place] [address] Dr. Marta Ashford Cheyenne/B Resist. Gene Not Applicable Normal [facility] Comment on above: Performed By: #### A 1C #### [facility] [address] [place] [address] Dr. Marta Ashford CARDIAC PAOLO 3-6on 2 CK [Catalytic activity/Vol] 112 U/L Normal 55-170 [facility] Comment on above: Performed By: #### P HVEN #### [facility] [address] [place] [address] Dr. Marta Ashford CK.MB [Mass/Vol] 1.13 ng/mL Normal <=2.37 [facility] Comment on above: Performed By: #### P HVEN #### [facility] [address] [address] [address] Marta Ashford HSTROP 283.1 pg/mL Critically high 4.0-42.2 [facility] Comment on above: Result Comment: CUT- OFF POINTS HAVE BEEN ESTABLISHED BASED ON THE FOURTH UNIVERSAL DEFINITIONS OF MYOCARDIAL INFARCTION. THE UPPER REFERENCE LIMIT (URL) OF TROPONIN, DEFINED THE 99TH PERCENTILE OF cTnI DISTRIBUTION IN A REFERENCE POPULATION, HAS BEEN CONFIRMED THE DECISION THRESHOLD FOR DE DIAGNOSIS. TEST REPEATED CRITICAL VALUE VERIFIED Performed By: #### P HVEN #### [facility] [address] [address] [address] Marta Ashford CK [Catalytic activity/Vol] 98 U/L Normal 55-170 [facility] Comment on above: Performed By: #### A 1C #### [facility] [address] [address] [address] Marta Ashford CK.MB [Mass/Vol] 1.08 ng/mL Normal <=2.37 [facility] Comment on above: Performed By: #### A 1C #### [facility] [address] [address] [address] Marta MCKEONTRKASANDRA 310.8 pg/mL Critically high 4.0-42.2 [facility] Comment on above: Result Comment: CUT- OFF POINTS HAVE BEEN ESTABLISHED BASED ON THE FOURTH UNIVERSAL DEFINITIONS OF MYOCARDIAL INFARCTION. THE UPPER REFERENCE LIMIT (URL) OF TROPONIN, DEFINED THE 99TH PERCENTILE OF cTnI DISTRIBUTION IN A REFERENCE POPULATION, HAS BEEN CONFIRMED THE DECISION THRESHOLD FOR DE DIAGNOSIS. test repeated Performed By: #### A 1C #### [facility] [address] [address] [address] Marta Ashford CARDIAC PAOLO ADMITon 022 CK [Catalytic activity/Vol] 100 U/L Normal 55-170 [facility] Comment on above: Performed By: #### C BCMAN #### [facility] [address] [address] [address] Marta Ashford CK.MB [Mass/Vol] 1.20 ng/mL Normal <=2.37 [facility] Comment on above: Performed By: #### C JIMENA #### [facility] [address] [place] [address] Dr. Marta Ashford HSTROP 51.6 pg/mL Critically high 4.0-42.2 [facility] Comment on above: Result Comment: CUT- OFF POINTS HAVE BEEN ESTABLISHED BASED ON THE FOURTH UNIVERSAL DEFINITIONS OF MYOCARDIAL INFARCTION. THE UPPER REFERENCE LIMIT (URL) OF TROPONIN, DEFINED THE 99TH PERCENTILE OF cTnI DISTRIBUTION IN A REFERENCE POPULATION, HAS BEEN CONFIRMED THE DECISION THRESHOLD FOR DE DIAGNOSIS. Performed By: #### C JIMENA #### [facility] [address] [place] [address] Dr. Marta Ashford ANGELICA 77.0 ng/mL Normal <=121.0 [facility] Comment on above: Performed By: #### C JIMENA #### [facility] [address] [place] [address] Dr. Marta Ashford CBC AUTO DIFFon 08-16-2021 BASO # 0.0 103/ul Normal 0.0-0.1 [facility] Comment on above: Performed By: #### A 1C #### [facility] [address] [place] [address] Dr. Marta Ashford Basophils/100 WBC (Bld) 0.2 % Normal 0.2-2.0 [facility] Comment on above: Performed By: #### A 1C #### [facility] [address] [place] [address] Dr. Marta Ashford EO # 0.0 103/ul Normal 0.0-0.7 [facility] Comment on above: Performed By: #### A 1C #### [facility] [address] [place] [address] Dr. Marta Ashford Eosinophils/100 WBC (Bld) 0.2 % Critically low 0.9-7.0 [facility] Comment on above: Performed By: #### A 1C #### [facility] [address] [place] [address] Dr. Marta Ashford Erythrocyte distribution width (RBC) [Ratio] 12.8 % Normal 11.0-15.0 [facility] Comment on above: Performed By: #### A 1C #### [facility] [address] [address] [address] Marta Ashford Hematocrit (Bld) [Volume fraction] 38.4 % Critically low 42.0-54.0 [facility] Comment on above: Performed By: #### A 1C #### [facility] [address] [address] [address] Marta Ashford Hemoglobin (Bld) [Mass/Vol] 12.7 g/dL Critically low 14.0-18.0 [facility] Comment on above: Performed By: #### A 1C #### [facility] [address] [place] [address] Dr. Marta Ashford IG # 0.03 10e3/ul Normal 0.00-0.03 [facility] Comment on above: Performed By: #### A 1C #### [facility] [address] [place] [address] Dr. Marta Ashofrd IG % 0.6 % Critically high 0.0-0.5 [facility] Comment on above: Performed By: #### A 1C #### [facility] [address] [place] [address] Dr. Marta Ashford LYMPH # 0.5 103/ul Critically low 1.2-3.8 [facility] Comment on above: Performed By: #### A 1C #### [facility] [address] [place] [address] Dr. Marta Ashford Lymphocytes/100 WBC (Bld) 11.1 % Critically low 20.5-60.0 [facility] Comment on above: Result Comment: dif. not rqd. same as 08/16/21 Performed By: #### A 1C #### [facility] [address] [place] [address] Dr. Marta Ashford MANUAL DIFF REQ NO Normal [facility] Comment on above: Performed By: #### A 1C #### [facility] [address] [place] [address] Dr. Marta Ashford MCH (RBC) [Entitic mass] 31.1 pg Normal 25.9-34.0 [facility] Comment on above: Performed By: #### A 1C #### [facility] [address] [place] [address] Dr. Marta Ashford MCHC (RBC) [Mass/Vol] 33.1 g/dL Normal 29.9-35.2 [facility] Comment on above: Performed By: #### A 1C #### [facility] [address] [place] [address] Dr. Marta Ashford MCV (RBC) [Entitic vol] 93.9 fL Normal 80.0-94.0 [facility] Comment on above: Performed By: #### A 1C #### [facility] [address] [place] [address] Dr. Marta Ashford MONO # 0.0 103/ul Critically low 0.3-0.8 [facility] Comment on above: Performed By: #### A 1C #### [facility] [address] [place] [address] Dr. Marta Ashford Monocytes/100 WBC (Bld) 0.6 % Critically low 1.7-12.0 [facility] Comment on above: Performed By: #### A 1C #### [facility] [address] [place] [address] Dr. Marta Ashford NEUT # 4.2 103/ul Normal 1.4-6.5 [facility] Comment on above: Performed By: #### A 1C #### [facility] [address] [place] [address] Dr. Marta Ashford Neutrophils/100 WBC (Bld) 87.3 % Critically high 43.0-75.0 [facility] Comment on above: Performed By: #### A 1C #### [facility] [address] [place] [address] Dr. Marta Ashford Platelet mean volume (Bld) [Entitic vol] 11.1 fL Normal 9.5-13.5 [facility] Comment on above: Performed By: #### A 1C #### [facility] [address] [place] [address] Dr. Marta Ashford PLT 114 103/ul Critically low 150-450 [facility] Comment on above: Performed By: #### A 1C #### [facility] [address] [place] [address] Dr. Marta Ashford RBC 4.09 106/ul Critically low 4.70-6.10 [facility] Comment on above: Performed By: #### A 1C #### [facility] [address] [place] [address] Dr. Marta Ashford WBC 4.8 103/ul Normal 4.0-11.0 [facility] Comment on above: Performed By: #### A 1C #### [facility] [address] [place] [address] Dr. Marta Ashford CBC W MANUAL DIFFon 08-17-19 22 ATYPICAL LYMPH # Normal [facility] Comment on above: Performed By: #### A 1C #### [facility] [address] [place] [address] Dr. Marta Ashford ATYPICAL LYMPH % Normal [facility] Comment on above: Performed By: #### A 1C #### [facility] [address] [place] [address] Dr. Marta Ashford BAND # Normal 0.0-0.3 [facility] Comment on above: Performed By: #### A 1C #### [facility] [address] [place] [address] Dr. Marta Ashford BAND % Normal 0-5 [facility] Comment on above: Performed By: #### A 1C #### [facility] [address] [place] [address] Dr. Marta Ashford BASOM # 0.00 103/ul Normal 0.00-0.10 [facility] Comment on above: Performed By: #### A 1C #### [facility] [address] [place] [address] Dr. Marta Ashford BASOM % 0.0 % Critically low 0.2-2.0 [facility] Comment on above: Performed By: #### A 1C #### [facility] [address] [place] [address] Dr. Marta Ashford BLAST # Normal [facility] Comment on above: Performed By: #### A 1C #### [facility] [address] [place] [address] Dr. Marta Ashford BLAST % Normal [facility] Comment on above: Performed By: #### A 1C #### [facility] [address] [place] [address] Dr. Marta Ashford CORRECTED WBC Normal 4.0-11.0 [facility] Comment on above: Performed By: #### A 1C #### [facility] [address] [place] [address] Dr. Marta Ashford EOS # 0.03 103/ul Normal 0.00-0.70 [facility] Comment on above: Performed By: #### A 1C #### [facility] [address] [place] [address] Dr. Marta Ashford EOS% 1.0 % Normal 0.9-7.0 [facility] Comment on above: Performed By: #### A 1C #### [facility] [address] [place] [address] Dr. Marta Ashford HCT 44.0 % Normal 42.0-54.0 [facility] Comment on above: Performed By: #### A 1C #### [facility] [address] [place] [address] Dr. Marta Ashford HGB 14.5 g/dl Normal 14.0-18.0 [facility] Comment on above: Performed By: #### A 1C #### [facility] [address] [place] [address] Dr. Marta Ashford LYMPHM # 0.90 103/ul Critically low 1.20-3.80 [facility] Comment on above: Performed By: #### A 1C #### [facility] [address] [place] [address] Dr. Marta Ashford LYMPHM% 32.0 % Normal 20.5-60.0 [facility] Comment on above: Performed By: #### A 1C #### [facility] [address] [place] [address] Dr. Marta Ashford MCH 31.2 pg Normal 25.9-34.0 [facility] Comment on above: Performed By: #### A 1C #### [facility] [address] [place] [address] Dr. Marta Ashford MCHC 33.0 g/dl Normal 29.9-35.2 [facility] Comment on above: Performed By: #### A 1C #### [facility] [address] [place] [address] Dr. Marta Ashford MCV 94.6 fL Critically high 80.0-94.0 [facility] Comment on above: Performed By: #### A 1C #### [facility] [address] [place] [address] Dr. Marta Ashford METAMYELOCYTE # Normal [facility] Comment on above: Performed By: #### A 1C #### [facility] [address] [place] [address] Dr. Marta Ashford METAMYELOCYTE % Normal [facility] Comment on above: Performed By: #### A 1C #### [facility] [address] [place] [address] Dr. Marta Ashford MONOM# 0.06 103/ul Critically low 0.30-0.80 [facility] Comment on above: Performed By: #### A 1C #### [facility] [address] [place] [address] Dr. Marta Ashford MONOM% 2.0 % Normal 1.7-12.0 [facility] Comment on above: Performed By: #### A 1C #### [facility] [address] [place] [address] Dr. Marta Ashford MPV 10.8 fL Normal 9.5-13.5 [facility] Comment on above: Performed By: #### A 1C #### [facility] [address] [place] [address] Dr. Marta Ashford MYELOCYTE # Normal [facility] Comment on above: Performed By: #### A 1C #### [facility] [address] [place] [address] Dr. Marta Ashford MYELOCYTE % Normal [facility] Comment on above: Performed By: #### A 1C #### [facility] [address] [place] [address] Dr. Marta Ashford NRBC Normal [facility] Comment on above: Performed By: #### A 1C #### [facility] [address] [place] [address] Dr. Marta Ashford PLT 129 103/ul Critically low 150-450 [facility] Comment on above: Performed By: #### A 1C #### [facility] [address] [place] [address] Dr. Marta Ashford RBC 4.65 106/ul Critically low 4.70-6.10 [facility] Comment on above: Performed By: #### A 1C #### [facility] [address] [place] [address] Dr. Marta Ashford RDW 12.9 % Normal 11.0-15.0 [facility] Comment on above: Performed By: #### A 1C #### [facility] [address] [place] [address] Dr. Marta Ashford SEG # 1.82 103/ul Normal 1.40-6.50 [facility] Comment on above: Performed By: #### A 1C #### [facility] [address] [place] [address] Dr. Marta Ashford SEG % 65.0 % Normal 43.0-75.0 [facility] Comment on above: Performed By: #### A 1C #### [facility] [address] [place] [address] Dr. Marta Ashford WBC 2.8 103/ul Critically low 4.0-11.0 [facility] Comment on above: Performed By: #### A 1C #### [facility] [address] [place] [address] ABD/PELVIS WO CONon 08-16 CT ABD/PELVIS WO CON CT ABD/PELVIS WO CO N: 08/16/2021 3:28 AM EDT CLINICAL HISTORY: 61 years old Male with UNSPECIFIED ABDOMINAL PAIN. Hematuria. TECHNIQUE: Axial CT images through the abdomen and pelvis are obtained without the intravenous administration of contrast. Coronal and sagittal reformations are also obtained. Dose reduction techniques were achieved by using automated exposure control and/or adjustment of mA and/or kV according to patient size and/or use of iterative reconstruction technique. COMPARISON: None available. FINDINGS: The lung bases are clear with no dependent infiltrate or effusion. Without the use of IV or oral contrast the study is limited by incomplete evaluation of the blood vessels, solid visceral organs and bowel. The liver is diffusely hypoattenuating with focal fatty sparing at the gallbladder fossa and mildly enlarged at 19 cm in greatest longitudinal diameter extending across the midline without focal abnormality. No intrahepatic or extrahepatic biliary ductal dilatation. The gallbladder, spleen, pancreas and bilateral adrenal glands are unremarkable. The bilateral kidneys are unremarkable with no renal calculi or hydronephrosis. The bilateral ureters demonstrate no gross abnormality or obstruction. The stomach and small bowel are unremarkable. The appendix is visualized without inflammatory change. The colon is unremarkable. The bladder appears unremarkable. There is no evidence of aortic aneurysm. No enlarged lymph nodes are seen. No free air or free fluid is seen. The prostate gland is mildly enlarged at 4.1 x 5.3 x 4.1 cm in AP, transverse and longitudinal diameter with coarse calcifications present. The osseous structures appear unremarkable. IMPRESSION: 1. No acute intra-abdominal inflammatory process identified. No hydronephrosis, renal or ureteral calculi. 2. Mild hepatomegaly and hepatic steatosis. 3. Prostamegaly. Correlate with PSA. Electronically authenticated by: ROVERTO GREENFIELD Date: 2021-08-16 05:21 Normal [facility] CULTURE BLOODon 08-16-2021 Microscopic examination of blood, culture Culture Observations: No growth at 5 days. Normal [facility] Comment on above: Performed By: #### B [id number] #### [facility] [address] [place] [address] [id number] [address] Marta Ashford Microscopic examination of blood, culture Culture Observations: No growth at 5 days. Normal [facility] Comment on above: Performed By: #### A 1C #### [facility] [address] [place] [id number] Marta Ashford Covid-19 PCR ([facility])on SARS-CoV-2 (COVID-19) RNA NORMA+probe Ql (Unsp spec) Not detected Normal NOT DETECTED [facility] Comment on above: Result Comment: When diagnostic testing is negative, the possibility of a false negative should be considered in the context of a patient's recent exposures and the presence of clinical signs and symptoms consistent with SARS-CoV-2. This test is not yet approved or cleared by the [place] Food and Drug Administration (FDA). This test was developed by [employer], [place], [place]. The performance characteristics of this test were validated by [facility]. The results are not intended to be used as the sole means for clinical diagnosis or patient management decisions. [facility] is authorized under Clinical Laboratory Improvement Amendments (CLIA) to perform high- complexity testing. This test is not yet approved or cleared by the [place] FDA. When there are no FDA-approved or cleared tests available, and other criteria are met, FDA can make tests available under an emergency access mechanism called an Emergency Use Authorization (EUA). The EUA for this test is supported by the Parent Trainer of Health and Human Service's declaration that circumstances exist to justify the emergency use of in vitro diagnostics for the detection and/or diagnosis of the virus that causes COVID-19. This EUA will remain in effect for the duration of the COVID-19 declaration justifying emergency of IVDs, unless it is terminated or revoked by the FDA (after which the test may no longer be used). Performed By: #### A 1C #### [facility] [address] [place] [address] Dr. Marta Ashford DRUG SCREEN RAPID (URINE)on 08-16-2021 AMP Negative Normal NEGATIVE [facility] Comment on above: Performed By: #### P HVEN #### [facility] [address] [place] [address] Dr. Marta Ashford BAR Negative Normal NEGATIVE [facility] Comment on above: Performed By: #### P HVEN #### [facility] [address] [place] [address] Dr. Marta Ashford BUP Negative Normal NEGATIVE [facility] Comment on above: Performed By: #### P HVEN #### [facility] [address] [place] [address] Dr. Marta Ashford BZO Negative Normal NEGATIVE [facility] Comment on above: Performed By: #### P HVEN #### [facility] [address] [address] [address] Marta Ashford ROME Negative Normal NEGATIVE [facility] Comment on above: Performed By: #### P HVEN #### [facility] [address] [address] [address] Marta Ashford CUT-OFFS SEE BELOW Normal [facility] Comment on above: Result Comment: AMP (Amphetamine): 500ng/mL, BAR (Barbituates): 200 ng/mL, BZO (Benzodiazepines): 150 ng/mL, BUP (Buprenorphine): 10 ng/mL, ROME (Cocaine): 150 ng/mL, mAMP (Methamphetamine): 500 ng/mL, MTD (Methadone): 200 ng/mL, OPI (Opiates): 100 ng/mL, OXY (Oxycodone): 100 ng/mL, PCP (Phencyclidine): 25 ng/mL, PPX (Propoxyphene): 300 ng/mL, THC (Cannabinoids): 50 ng/mL, TCA (Trycyclic Antidepressants): 300 ng/mL Performed By: #### P HVEN #### [facility] [address] [place] [address] Dr. Marta Ashford DRUG CUT HEADER DRUG CLASS TEST SYSTEM CUT-OFF CONCENTRATIONS ARE FOLLOWS: Normal [facility] Comment on above: Performed By: #### P HVEN #### [facility] [address] [address] [address] Marta Ashford mAMP Negative Normal NEGATIVE [facility] Comment on above: Performed By: #### P HVEN #### [facility] [address] [address] [address] Marta Ashford MTD Negative Normal NEGATIVE [facility] Comment on above: Performed By: #### P HVEN #### [facility] [address] [address] [address] Marta Ashford OPI Negative Normal NEGATIVE [facility] Comment on above: Performed By: #### P HVEN #### [facility] [address] [address] [address] Marta Ashford OXY Negative Normal NEGATIVE [facility] Comment on above: Performed By: #### P HVEN #### [facility] [address] [place] [address] Dr. Marta Ashford PCP Negative Normal NEGATIVE [facility] Comment on above: Performed By: #### P HVEN #### [facility] [address] [address] [address] Marta Ashford PPX Negative Normal NEGATIVE [facility] Comment on above: Performed By: #### P HVEN #### [facility] [address] [place] [address] Dr. Marta Ashford TCA Negative Normal NEGATIVE [facility] Comment on above: Performed By: #### P HVEN #### [facility] [address] [place] [address] Dr. Marta Ashford THC Negative Normal NEGATIVE [facility] Comment on above: Performed By: #### P HVEN #### [facility] [address] [place] [address] Dr. Marta Ashford ER URINE PROFILEon 2 Bilirubin Ql (U) Negative Normal NEGATIVE [facility] Comment on above: Performed By: #### A 1C #### [facility] [address] [place] [address] Dr. Marta [place] Clarity (U) SL CLOUDY Abnormal CLEAR [facility] Comment on above: Performed By: #### A 1C #### [facility] [address] [place] [address] Dr. Marta Ashford Color (U) YELLOW Normal YELLOW [facility] Comment on above: Performed By: #### A 1C #### [facility] [address] [place] [address] Dr. Marta Ashford ERUAHD A micrscopic examination will be performed if indicated. Normal [facility] Comment on above: Performed By: #### A 1C #### [facility] [address] [place] [address] Dr. Marta Ashford Glucose Ql (U) 1000 mg/dl Abnormal NEGATIVE [facility] Comment on above: Performed By: #### A 1C #### [facility] [address] [place] [address] Dr. Marta Ashford Hemoglobin Ql (U) SMALL Abnormal NEGATIVE [facility] Comment on above: Performed By: #### A 1C #### [facility] [address] [place] [address] Dr. Marta Ashford Ketones Ql (U) Negative Normal NEGATIVE [facility] Comment on above: Performed By: #### A 1C #### [facility] [address] [place] [address] Dr. Marta Ashford LEUKOCYTES SMALL Abnormal NEGATIVE [facility] [place] Comment on above: Performed By: #### A 1C #### [facility] [address] [place] [address] Dr. Marta Ashford Nitrite Ql (U) Positive Abnormal NEGATIVE [facility] Comment on above: Performed By: #### A 1C #### [facility] [address] [place] [address] Dr. Marta Ashford pH (U) 5.5 [pH] Normal 5-9 [facility] Comment on above: Performed By: #### A 1C #### [facility] [address] [place] [address] Dr. Marta Ashford SPEC GRAVITY 1.020 Normal 1.005-<=1.[address] [place] [address] Comment on above: Performed By: #### A 1C #### [facility] [address] [place] [address] Dr. Marta Ashford UA PROTEIN TRACE Normal NEGATIVE/ TRACE [facility] Comment on above: Performed By: #### A 1C #### [facility] [address] [place] [address] Dr. Marta Ashford UR MICRO IND INDICATED Normal [facility] Comment on above: Performed By: #### A 1C #### [facility] [address] [place] [address] Dr. Marta Ashford Urobilinogen Qn (U) 0.2 {Brad'U}/dL Normal 0.2 - 1. 0 [facility] Comment on above: Performed By: #### A 1C #### [facility] [address] [place] [address] Dr. Marta Ashford LACTATE/LACTIC ACIDon 2021 Lactate [Moles/Vol] 4.1 mmol/L Critically high 0.7-2.0 [facility] Comment on above: Result Comment: test repeated Performed By: #### L ACT #### [facility] [address] [place] [address] Dr. Marta Ashford Lactate [Moles/Vol] 4.1 mmol/L Critically high 0.7-2.0 [facility] Comment on above: Result Comment: test repeated Performed By: #### L ACT #### [facility] [address] [address] [address] Marta Ashford OCC BLD IMMUNOASSAYon 2021 OCCULT BLOOD Negative Normal NEGATIVE [facility] Comment on above: Performed By: #### A 1C #### [facility] [address] [place] [address] Dr. Marta Ashford PH VENOUS BLOODon 08-16-2021 PCO2 VENOUS 30.8 mmHg Critically low 40.0-52.0 [facility] Comment on above: Performed By: #### P HVEN #### [facility] [address] [place] [address] Dr. Marta Ashford pH VENOUS 7.400 Normal 7.330-7.430 [facility] Comment on above: Performed By: #### P HVEN #### [facility] [address] [place] [address] Dr. Marta Ashford POINT OF CARE GLUCOSEon Glucose [Mass/Vol] 214 mg/dL Critically high [address] [place] [address] Comment on above: Performed By: #### C BCMAN #### [facility] [address] [place] [address] Dr. Marta Ashford Glucose [Mass/Vol] 275 mg/dL Critically high [address] [place] [address] Comment on above: Performed By: #### P HVEN #### [facility] [address] [place] [address] Dr. Marta Ashford Glucose [Mass/Vol] 366 mg/dL Critically high -106 [facility] Comment on above: Performed By: #### A 1C #### [facility] [address] [address] [address] Marta Ashford Glucose [Mass/Vol] 168 mg/dL Critically high 74-106 [facility] Comment on above: Performed By: #### P OCGLUC #### [facility] [address] [address] [address] Marta Ashford Glucose [Mass/Vol] 214 mg/dL Critically high 74-106 [facility] Comment on above: Performed By: #### A 1C #### [facility] [address] [address] [address] Marta Ashford PROF CHEM 8 (BAS METB)on Anion gap [Moles/Vol] 17.4 mmol/L Normal [facility] Comment on above: Performed By: #### P HVEN #### [facility] [address] [place] [address] Dr. Marta Ashford Calcium [Mass/Vol] 7.3 mg/dL Critically low 8.5-10.1 [facility] Comment on above: Performed By: #### P HVEN #### [facility] [address] [place] [address] Dr. Marta Ashford Chloride [Moles/Vol] 108 mmol/L Critically high 98-107 [facility] Comment on above: Performed By: #### P HVEN #### [facility] [address] [place] [address] Dr. Marta Ashford CO2 [Moles/Vol] 20.7 mmol/L Critically low 22.0-30.0 [facility] Comment on above: Performed By: #### P HVEN #### [facility] [address] [place] [address] Dr. Marta Ashford Creatinine [Mass/Vol] 1.32 mg/dL Critically high 0.66-1.25 [facility] Comment on above: Performed By: #### P HVEN #### [facility] [address] [place] [address] Dr. Marta Ashford EGFR-AF [place] >60 Normal >=60 [facility] Comment on above: Performed By: #### P HVEN #### [facility] [address] [address] [address] Marta Ashford EGFR-NON AF [place] 56 mL/min/1.73m2 Critically low >=60 [facility] Comment on above: Performed By: #### P HVEN #### [facility] [address] [address] [address] Marta Ashford Glucose [Mass/Vol] 189 mg/dL Critically high 74-106 [facility] Comment on above: Performed By: #### P HVEN #### [facility] [address] [address] [address] Marta Ashford Potassium [Moles/Vol] 3.1 mmol/L Critically low 3.4-5.0 [facility] Comment on above: Performed By: #### P HVEN #### [facility] [address] [address] [address] Marta Ashford Sodium [Moles/Vol] 143 mmol/L Normal 137-145 [facility] Comment on above: Performed By: #### P HVEN #### [facility] [address] [address] [address] Marta Ashford Urea nitrogen [Mass/Vol] 25.0 mg/dL Critically high 7.0-18.0 [facility] Comment on above: Performed By: #### P HVEN #### [facility] [address] [address] [address] Marta Ashford Urea nitrogen/Creatinine [Mass ratio] 18.9 mg/mg Normal [facility] Comment on above: Performed By: #### P HVEN #### [facility] [address] [address] [address] Marta Ashford Anion gap [Moles/Vol] 17.1 mmol/L Normal [facility] Comment on above: Performed By: #### C JIMENA #### [facility] [address] [address] [address] Marta Ashford Calcium [Mass/Vol] 8.2 mg/dL Critically low 8.5-10.1 [facility] Comment on above: Performed By: #### C JIMENA #### [facility] [address] [address] [address] Marta Ashford Chloride [Moles/Vol] 104 mmol/L Normal 98-107 [facility] Comment on above: Performed By: #### C JIMENA #### [facility] [address] [address] [address] Marta Ashford CO2 [Moles/Vol] 23.4 mmol/L Normal 22.0-30.0 [facility] Comment on above: Performed By: #### C JIMENA #### [facility] [address] [address] [address] Marta Ashford Creatinine [Mass/Vol] 1.17 mg/dL Normal 0.66-1.25 [facility] Comment on above: Performed By: #### C JIMENA #### [facility] [address] [place] [address] Dr. Marta Ashford EGFR-AF [place] >60 Normal >=60 [facility] Comment on above: Performed By: #### C JIMENA #### [facility] [address] [address] [address] Marta Ashford EGFR-NON AF [place] >60 Normal >=60 [facility] Comment on above: Performed By: #### C JIMENA #### [facility] [address] [address] [address] Marta Ashford Glucose [Mass/Vol] 215 mg/dL Critically high 74-106 [facility] Comment on above: Performed By: #### C BCVALERY #### [facility] [address] [address] [address] Marta Ashford Potassium [Moles/Vol] 3.5 mmol/L Normal 3.4-5.0 [facility] Comment on above: Performed By: #### C BCVALERY #### [facility] [address] [address] [address] Marta Ashford Sodium [Moles/Vol] 141 mmol/L Normal 137-145 [facility] Comment on above: Performed By: #### C JIMENA #### [facility] [address] [place] [address] Dr. Marta Ashford Urea nitrogen [Mass/Vol] 23.0 mg/dL Critically high 7.0-18.0 [facility] Comment on above: Performed By: #### C JIMENA #### [facility] [address] [place] [address] Dr. Marta Ashford Urea nitrogen/Creatinine [Mass ratio] 19.7 mg/mg Normal [facility] Comment on above: Performed By: #### C JIMENA #### [facility] [address] [place] [address] Dr. Marta Ashford URINE MICROSCOPIC ONLYon BACTERIA MODERATE Abnormal NONE SEEN [facility] Comment on above: Performed By: #### A 1C #### [facility] [address] [place] [address] Dr. Marta Ashford Bacteria identified Cx Nom (U) INDICATED Normal [facility] Comment on above: Performed By: #### A 1C #### [facility] [address] [place] [address] Dr. Marta Ashford CAST NONE SEEN Normal NONE SEEN [facility] Comment on above: Performed By: #### A 1C #### [facility] [address] [place] [address] Dr. Marta Ashford Crystals LM Nom (Urine sed) NONE SEEN Normal NONE SEEN [facility] Comment on above: Performed By: #### A 1C #### [facility] [address] [place] [address] Dr. Marta Ashford Epithelial cells LM Ql (Urine sed) NONE SEEN Normal NONE SEEN /RARE [facility] Comment on above: Performed By: #### A 1C #### [facility] [address] [place] [address] Dr. Marta Ashford MUCOUS NONE SEEN Normal NONE SEEN [facility] Comment on above: Performed By: #### A 1C #### [facility] [address] [place] [address] Dr. Marta Ashford RBC 0-2 Normal 0-2 [facility] Comment on above: Performed By: #### A 1C #### [facility] [address] [place] [address] Dr. Marta Ashford WBC 10-20 Abnormal NONE SEEN [facility] Comment on above: Performed By: #### A 1C #### [facility] [address] [address] [address] Marta Ashford XR CHEST 2 Von 08-16-2021 XR CHEST 2 V EXAM: XR CHEST 2 V HISTORY: Fever COMPARISON: None. TECHNIQUE: PA and lateral FINDINGS: The cardiomediastinal silhouette is within normal limits. The bilateral lung hinton show no evidence for acute consolidation, infiltrate, pneumothorax or pleural effusions. The diaphragmatic and osseous structures are intact with no evidence for an acute osseous abnormality. Anterior bridging osteophytes visualized along the thoracic spine suggestive of diffuse idiopathic skeletal hyperostosis. IMPRESSION: No acute cardiopulmonary disease. Diffuse idiopathic skeletal hyperostosis of the thoracic spine. Electronically authenticated by: KIZZY SINHA Date: 2021-08-16 03:11 Normal [facility] Glucose Poct Glucometerson 0 01-28-2021 Commemt1 Glu2: Cleaned Meter Normal [facility] Comment on above: Result Comment: PERF ORMED BY: [facility] [address] [place] [address] PATHOLOGIST ENGLISH DRAWER PER TEIXEIRA M.D. Performed By: #### G DANIELLE #### Point of Care testing , Glucose [Mass/Vol] 259 mg/dL Normal [facility] Comment on above: Result Comment: [facility] Glucose Reference Range is dependent on time and content of last meal. Glucose of more than 200 mg/dL in a nonstressed, ambulatory subject supports the diagnosis of Diabetes Mellitus. Performed By: #### G DANIELLE #### Point of Care testing , Franco 01-28-2021 L - -------- Specimen: [id number] Received: 01/28/21 Status: MORENO Spencer Num: [id number] Spec Type: Surgical Subm Dr: Oskar Johnson MD Tissues: A Duodenum - Biopsy (DUODENAL BX) B Esophagus Biopsy (ESOPHAGUS BX) C Colon Biopsy (COLON BX) Procedures: HE Stain/6, Gross/Micro L4/3 -------- Patient Age/Sex Location Account Attending Physician -------- David Guardado/M [id number] Oskar Johnson MD -------- SPEC NUM: [id number] RECD: 01/28/21 STATUS: MORENO TJ NUM: [id number] PARVIN: 01/28/21- DR: Oskar Johnson MD ENTERED: 01/28/[address]: SPEC TYPE: Surgical DEPT: S ENTERED BY: [id number] RECV BY: [id number] ORDERED: HE Stain/6, Gross/Micro L4/3 ORDERED: HE Stain/6, Gross/Micro L4/3 Pathological Diagnosis A. Duodenum, biopsy: - Small intestinal mucosa showing no specific pathologic changes - Preserved villous and crypt architecture - Negative for active inflammation B. Esophagus, biopsy: - Mixed squamous and glandular mucosa of gastric type showing acute and chronic inflammation in lamina propria - Negative for intestinal metaplasia and dysplasia C. Colon, surveillance biopsy: - Colonic mucosa showing no specific pathologic changes - Negative for microscopic colitis Clinical Information Abdominal pain Gross Description A. Received in formalin labeled with the patient's name, number and duodenal biopsy rule out sprue is a 0.3 cm pink tissue fragment. Entirely submitted in one cassette labeled A1. (MATILDA/FELICITAS) -------- Specimen: [id number] Received: 01/28/21 Status: MORENO Tj Num: [id number] Spec Type: Surgical Subm Dr: Oskar Johnson MD Tissues: A Duodenum - Biopsy (DUODENAL BX) B Esophagus Biopsy (ESOPHAGUS BX) C Colon Biopsy (COLON BX) Procedures: HE Stain/6, Gross/Micro L4/3 -------- Patient: David Guardado [id number] (Continued) -------- Specimen: [id number] Received: 01/28/21 (Continued) Gross Description (Continued) Signed (signature on file) Per Teixeira MD 01/29/21 1813 -------- Specimen: [id number] Received: 01/28/21 Status: MORENO Spencer Num: [id number] Spec Type: Surgical Subm Dr: Oskar Johnson MD Tissues: A Duodenum - Biopsy (DUODENAL BX) B Esophagus Biopsy (ESOPHAGUS BX) C Colon Biopsy (COLON BX) Procedures: HE Stain/6, Gross/Micro L4/3 -------- Patient: David Guardado [id number] (Continued) -------- Specimen: [id number] Received: 01/28/21 (Continued) Gross Description (Continued) B. Received in formalin labeled with the patient's name, number and esophagus biopsy erosions is a 0.3 cm pink tissue fragment. Entirely submitted in one cassette labeled B1. (MATILDA/FELICITAS) C. Received in formalin labeled with the patient's name, number and surveillance colon biopsy rule out microscopic colitis are 3 miller tissue fragments, 0.1 cm to 0.3 cm. Entirely submitted in one cassette labeled C1. (MATILDA/JS) Microscopic Description A. Two glass slides with H E stained material have been examined. The microscopic findings support the above pathologic diagnosis. B. Two glass slides with H E stained material have been examined. The microscopic findings support the above pathologic diagnosis. C. Two glass slides with H E stained material have been examined. The microscopic findings support the above pathologic diagnosis. [id number] -------- -------- Specimen: [id number] Received: 01/28/21 Status: MORENO Spencer Num: [id number] Spec Type: Surgical Subm Dr: Oskar Johnson MD Tissues: A Duodenum - Biopsy (DUODENAL BX) B Esophagus Biopsy (ESOPHAGUS BX) C Colon Biopsy (COLON BX) Procedures: HE Stain/6, Gross/Micro L4/3 -------- Patient: David Guardado [id number] (Continued) --- (more content not included)... Normal [facility] Ammoniaon 01-24-2021 Ammonia (P) [Moles/Vol] 30 umol/L Normal 11-35 [facility] Comment on above: Order Comment: Reaso n for Exam Fatty liver;Right sided abdominal pain Result Comment: PERF ORMED BY: [facility] [address] [place] [address] PATHOLOGIST ENGLISH DRAWER PER TEIXEIRA M.D. Performed By: #### P T, AMM, CBC, CMP, HEPATIC #### [facility] [address] [id number] [facility] COVID-19 FRMCon 01-24-2021 SARS-CoV-2 (COVID-19) RNA NORMA+probe Ql (Unsp spec) Negative Normal Negative [facility] Comment on above: Order Comment: Healt hcare Worker?: N Result Comment: Testing for SARS-CoV-2 by RT-PCR This test was developed and its performance characteristics determined by [employer] and validated at the [facility]. This test has not been FDA cleared or approved. This test has been authorized by FDA under an Emergency Use Authorization (EUA). This test has been validated in accordance with the FDA's Guidance Document (Policy for Diagnostics Testing in Laboratories Certified to Perform High Complexity Testing under CLIA prior to Emergency Use Authorization for Coronavirus Disease-2019 during the Public Health Emergency) issued on August 11, 2019. This test is only authorized for the duration of time the declaration that circumstances exist justifying the authorization of the emergency use of in vitro diagnostic tests for detection of SARS-CoV-2 virus and/or diagnosis of COVID-19 infection under section 564(b)(1) of the Act, 21 U.S.C. 360bbb-3(b)(1), unless the authorization is terminated or revoked sooner. PERFORMED BY: [facility] [address] [place] [address] PATHOLOGIST ENGLISH DRAWER PER TEIXEIRA M.D. Performed By: #### C OVID 19 [facility] #### [facility] [address] Complete Blood Count Auto Di ffon 01-24-2021 Basophils (Bld) [#/Vol] 0.1 10*3/uL Normal 0.0-0.2 [facility] Comment on above: Order Comment: Reaso n for Exam Fatty liver;Right sided abdominal pain Result Comment: PERF ORMED BY: [place] [address] PATHOLOGIST ENGLISH DRAWER PER TEIXEIRA M.D. Performed By: #### P T, AMM, CBC, CMP, HEPATIC #### [address] Basophils/100 WBC (Bld) 0.8 % Normal . [facility] Comment on above: Order Comment: Reaso n for Exam Fatty liver;Right sided abdominal pain Performed By: #### P T, AMM, CBC, CMP, HEPATIC #### [address] Eosinophils (Bld) [#/Vol] 0.2 10*3/uL Normal 0.0-0.45 [facility] Comment on above: Order Comment: Reaso n for Exam Fatty liver;Right sided abdominal pain Performed By: #### P T, AMM, CBC, CMP, HEPATIC #### [address] Eosinophils/100 WBC (Bld) 1.7 % Normal . [facility] Comment on above: Order Comment: Reaso n for Exam Fatty liver;Right sided abdominal pain Performed By: #### P T, AMM, CBC, CMP, HEPATIC #### [address] Erythrocyte distribution width (RBC) [Ratio] 13.3 % Normal 12.0-14.8 [facility] Comment on above: Order Comment: Reaso n for Exam Fatty liver;Right sided abdominal pain Performed By: #### P T, AMM, CBC, CMP, HEPATIC #### [address] Hematocrit (Bld) [Volume fraction] 40.9 % Normal 38.8-50.0 [facility] Comment on above: Order Comment: Reaso n for Exam Fatty liver;Right sided abdominal pain Performed By: #### P T, AMM, CBC, CMP, HEPATIC #### [address] Hemoglobin (Bld) [Mass/Vol] 14.3 g/dL Normal 13.0-17.0 [facility] Comment on above: Order Comment: Reaso n for Exam Fatty liver;Right sided abdominal pain Performed By: #### P T, AMM, CBC, CMP, HEPATIC #### [address] Lymphocytes (Bld) [#/Vol] 3.7 10*3/uL Normal 1.00-4.8 [facility] Comment on above: Order Comment: Reaso n for Exam Fatty liver;Right sided abdominal pain Performed By: #### P T, AMM, CBC, CMP, HEPATIC #### [address] Lymphocytes/100 WBC (Bld) 37.8 % Normal . [facility] Comment on above: Order Comment: Reaso n for Exam Fatty liver;Right sided abdominal pain Performed By: #### P T, AMM, CBC, CMP, HEPATIC #### [address] MCH (RBC) [Entitic mass] 32.6 pg Normal 27.5-35.2 [facility] Comment on above: Order Comment: Reaso n for Exam Fatty liver;Right sided abdominal pain Performed By: #### P T, AMM, CBC, CMP, HEPATIC #### [address] MCV (RBC) [Entitic vol] 93.2 fL Normal 83.5-101 [facility] Comment on above: Order Comment: Reaso n for Exam Fatty liver;Right sided abdominal pain Performed By: #### P T, AMM, CBC, CMP, HEPATIC #### [address] Mean Corpuscular HGB Conc 35.0 g/dL Normal 32.5-35.6 [facility] Comment on above: Order Comment: Reaso n for Exam Fatty liver;Right sided abdominal pain Performed By: #### P T, AMM, CBC, CMP, HEPATIC #### [facility] [address] Monocytes (Bld) [#/Vol] 0.8 10*3/uL Normal 0.0-0.8 [facility] Comment on above: Order Comment: Reaso n for Exam Fatty liver;Right sided abdominal pain Performed By: #### P T, AMM, CBC, CMP, HEPATIC #### [facility] [address] [place] [address] Monocytes/100 WBC (Bld) 7.9 % Normal . [facility] Comment on above: Order Comment: Reaso n for Exam Fatty liver;Right sided abdominal pain Performed By: #### P T, AMM, CBC, CMP, HEPATIC #### [address] Neutrophils (Bld) [#/Vol] 5.0 10*3/uL Normal 1.8-7.7 [facility] Comment on above: Order Comment: Reaso n for Exam Fatty liver;Right sided abdominal pain Performed By: #### P T, AMM, CBC, CMP, HEPATIC #### [address] Neutrophils/100 WBC (Bld) 51.8 % Normal . [facility] Comment on above: Order Comment: Reaso n for Exam Fatty liver;Right sided abdominal pain Performed By: #### P T, AMM, CBC, CMP, HEPATIC #### [address] Nucleated RBC/100 WBC (Bld) [Ratio] 0.1 % Normal 0-0.5 [facility] Comment on above: Order Comment: Reaso n for Exam Fatty liver;Right sided abdominal pain Performed By: #### P T, AMM, CBC, CMP, HEPATIC #### [address] Platelet mean volume (Bld) [Entitic vol] 10.0 fL Normal 6.6-10.1 [facility] Comment on above: Order Comment: Reaso n for Exam Fatty liver;Right sided abdominal pain Performed By: #### P T, AMM, CBC, CMP, HEPATIC #### [facility] [address] Platelets (Bld) [#/Vol] 147 10*3/uL Low 150-450 [facility] Comment on above: Order Comment: Reaso n for Exam Fatty liver;Right sided abdominal pain Performed By: #### P T, AMM, CBC, CMP, HEPATIC #### [facility] [address] RBC (Bld) [#/Vol] 4.39 10*6/uL Normal 3.90-5.60 [facility] Comment on above: Order Comment: Reaso n for Exam Fatty liver;Right sided abdominal pain Performed By: #### P T, AMM, CBC, CMP, HEPATIC #### [facility] [address] WBC (Bld) [#/Vol] 9.7 10*3/uL Normal 4.5-11.0 [facility] Comment on above: Order Comment: Reaso n for Exam Fatty liver;Right sided abdominal pain Performed By: #### P T, AMM, CBC, CMP, HEPATIC #### [facility] [address] [place] [address] Comprehensive Metabolic Pane franco 01-24-2021 Albumin [Mass/Vol] 3.7 g/dL Normal 3.2-5.5 [facility] Comment on above: Order Comment: Reaso n for Exam Fatty liver;Right sided abdominal pain Performed By: #### P T, AMM, CBC, CMP, HEPATIC #### [facility] [address] [place] [address] Albumin/Globulin [Mass ratio] 1.2 {ratio} Normal [facility] Comment on above: Order Comment: Reaso n for Exam Fatty liver;Right sided abdominal pain Performed By: #### P T, AMM, CBC, CMP, HEPATIC #### [facility] [address] ALP [Catalytic activity/Vol] 54 U/L Normal 32-92 [facility] Comment on above: Order Comment: Reaso n for Exam Fatty liver;Right sided abdominal pain Performed By: #### P T, AMM, CBC, CMP, HEPATIC #### [facility] [address] [place] [address] [place] ALT [Catalytic activity/Vol] 41 U/L Normal 10-60 [facility] Comment on above: Order Comment: Reaso n for Exam Fatty liver;Right sided abdominal pain Performed By: #### P T, AMM, CBC, CMP, HEPATIC #### [facility] [address] [place] [address] AST [Catalytic activity/Vol] 30 U/L Normal 10-42 [facility] Comment on above: Order Comment: Reaso n for Exam Fatty liver;Right sided abdominal pain Performed By: #### P T, AMM, CBC, CMP, HEPATIC #### [facility] [address] [place] [address] [place] Bilirubin [Mass/Vol] 0.5 mg/dL Normal 0.3-1.2 [facility] Comment on above: Order Comment: Reaso n for Exam Fatty liver;Right sided abdominal pain Performed By: #### P T, AMM, CBC, CMP, HEPATIC #### [facility] [address] [place] [address] [place] Calcium [Mass/Vol] 9.4 mg/dL Normal 8.2-10.2 [facility] Comment on above: Order Comment: Reaso n for Exam Fatty liver;Right sided abdominal pain Performed By: #### P T, AMM, CBC, CMP, HEPATIC #### [facility] [address] [place] [address] [place] Chloride [Moles/Vol] 102 mmol/L Normal 95-114 [facility] Comment on above: Order Comment: Reaso n for Exam Fatty liver;Right sided abdominal pain Performed By: #### P T, AMM, CBC, CMP, HEPATIC #### [facility] [address] CO2 [Moles/Vol] 25.0 mmol/L Normal 22.0-30.0 [facility] Comment on above: Order Comment: Reaso n for Exam Fatty liver;Right sided abdominal pain Performed By: #### P T, AMM, CBC, CMP, HEPATIC #### [facility] [address] Creatinine [Mass/Vol] 0.86 mg/dL Normal 0.64-1.27 [facility] Comment on above: Order Comment: Reaso n for Exam Fatty liver;Right sided abdominal pain Performed By: #### P T, AMM, CBC, CMP, HEPATIC #### [facility] [address] [place] [address] Estimated GFR ( Lillie > 60 [facility] Comment on above: Order Comment: Reaso n for Exam Fatty liver;Right sided abdominal pain Result Comment: GFR estimated reference range: According to KDOQI guidelines, <60 ml/min/1.73m2 is sufficient to diagnose a patient with chronic kidney disease. Performed By: #### P T, AMM, CBC, CMP, HEPATIC #### [facility] [address] Estimated GFR (Non- Am > 60 [facility] Comment on above: Order Comment: Reaso n for Exam Fatty liver;Right sided abdominal pain Performed By: #### P T, AMM, CBC, CMP, HEPATIC #### [facility] [address] Globulin (S) [Mass/Vol] 3.0 g/dL [facility] Comment on above: Order Comment: Reaso n for Exam Fatty liver;Right sided abdominal pain Performed By: #### P T, AMM, CBC, CMP, HEPATIC #### [facility] [address] Glucose [Mass/Vol] 223 mg/dL High 70-100 [facility] Comment on above: Order Comment: Reaso n for Exam Fatty liver;Right sided abdominal pain Result Comment: [place] Glucose Reference Range is dependent on time and content of last meal. Glucose of more than 200 mg/dL in a nonstressed, ambulatory subject supports the diagnosis of Diabetes Mellitus. ADA recommended reference range Performed By: #### P T, AMM, CBC, CMP, HEPATIC #### [facility] [address] [place] [address] Potassium [Moles/Vol] 4.5 mmol/L Normal 3.5-5.1 [facility] Comment on above: Order Comment: Reaso n for Exam Fatty liver;Right sided abdominal pain Performed By: #### P T, AMM, CBC, CMP, HEPATIC #### [facility] [address] [place] [address] Protein [Mass/Vol] 6.7 g/dL Normal 6.1-7.9 [facility] Comment on above: Order Comment: Reaso n for Exam Fatty liver;Right sided abdominal pain Performed By: #### P T, AMM, CBC, CMP, HEPATIC #### [facility] [address] [place] [address] Sodium [Moles/Vol] 139 mmol/L Normal 136-146 [facility] Comment on above: Order Comment: Reaso n for Exam Fatty liver;Right sided abdominal pain Performed By: #### P T, AMM, CBC, CMP, HEPATIC #### [facility] [address] [place] [address] Urea nitrogen [Mass/Vol] 14 mg/dL Normal 9-23 [facility] Comment on above: Order Comment: Reaso n for Exam Fatty liver;Right sided abdominal pain Performed By: #### P T, AMM, CBC, CMP, HEPATIC #### [address] Hepatic Panelon 01-24-2021 Bilirubin,Indirect Not performed Normal [facility] Comment on above: Order Comment: Reaso n for Exam Fatty liver;Right sided abdominal pain Result Comment: PERF ORMED BY: [place] [address] PATHOLOGIST ENGLISH DRAWER PER TEIXEIRA M.D. Performed By: #### P T, AMM, CBC, CMP, HEPATIC #### [address] [place] [address] [facility] Bilirubin.indirect [Mass/Vol] mg/dL Normal 0.0-0.4 [facility] Comment on above: Order Comment: Reaso n for Exam Fatty liver;Right sided abdominal pain Performed By: #### P T, AMM, CBC, CMP, HEPATIC #### [facility] [address] [place], [place] [id number] [facility] Prothrombin Time INRon 01-24 INR Coag (PPP) [Relative time] 1.0 {INR} Normal [facility] Comment on above: Order Comment: Reaso n for Exam Fatty liver;Right sided abdominal pain Result Comment: INR Therapeutic Range A) Pre- and Peroperative OAT started two weeks before surgery. NOT HIP SURGERY: 1.5 - 2.5 HIP SURGERY: 2 - 3 B) Primary and secondary prevention of venous THROMBOSIS: 2 - 3 C) Active venous thrombosis, pulmonary embolism and prevention of recurrent venous thrombosis: 2 - 3 D) Prevention of arterial thromboembolism including patients with mechanical heart valves: 3 - 4.5 PERFORMED BY: [place] [address] PATHOLOGIST ENGLISH DRAWER PER TEIXEIRA M.D. Performed By: #### P T, AMM, CBC, CMP, HEPATIC #### [facility] [address] [place] [address] PT Coag (PPP) [Time] 11.7 s Normal 9.0-12.9 [facility] Comment on above: Order Comment: Reaso n for Exam Fatty liver;Right sided abdominal pain Performed By: #### P T, AMM, CBC, CMP, HEPATIC #### [place] [id number] [facility] Vital Signs Date Time Vital Sign Value Performing Clinician Facility 06-11-2021 16:00-0500 Body height 162.56 cm Girma Tan Other [facility] 06-11-2021 16:00-0500 Body mass index (BMI) [Ratio] 39.75 kg/m2 Girma Tan Other [facility] 06-11-2021 16:00-0500 Body weight 105.05 kg Girma Tejedadiff Other [facility] Other 06-11-2021 16:00-0500 Diastolic blood pressure 89 mm[Hg] Girma Tejedadiff Other [facility] Other 06-11-2021 16:00-0500 Respiratory rate 18 /min Girma Tejedadiff Other [facility] Other 06-11-2021 16:00-0500 SaO2% (BldA) [Mass fraction] 99 % Girma Tejedadiff Other [facility] Other 06-11-2021 16:00-0500 Systolic blood pressure 158 mm[Hg] Girma Tejedadiff Other [facility] Other 03-07-2021 15:30-0400 Body height 162.56 cm Oskar Johnson Other [facility] Other 03-07-2021 15:30-0400 Body mass index (BMI) [Ratio] 39.48 kg/m2 Oskar Johnson Other [facility] Other 03-07-2021 15:30-0400 Body weight 104.33 kg Oskar Johnson Other [facility] Other Encounters Encounter Date Encounter Type Care Provider Facility Start: 12-11-2023 End: 12-11-2023 ambulatory RENETTA ARELLANO Not Available Start: 07-01-2023 End: 07-01-2023 ambulatory RENETTA ARELLANO Not Available Start: 08-01-2022 End: 08-02-[address] RENETTA ARELLANO Facility:[facility] Start: 03-13-2022 End: 03-14-[address] RENETTA ARELLANO Facility:[facility] Start: 09-12-2021 Encounter for genera l adult medical examination without abnormal findings DR RENETTA ARELLANO [facility] Start: 09-10-2021 End: 09-11-[address] RENETTA ARELLANO Facility:[facility] Start: 09-10-2021 End: 09-11-2021 Encounter for general adult medical examination without abnormal findings DR RENETTA ARELLANO Facility:[facility] Start: 08-16-2021 End: 08-18-2021 Evaluation and management of inpatient DR ANNA THACKER Facility:[facility] Start: 07-02-2021 End: 07-02-2021 ambulatory Girma Tan Other [facility] Start: 07-02-2021 Telephone encounter Girma peraza [facility] Start: 06-24-2021 End: 06-24-2021 ambulatory Girma Tan Other [facility] Other Start: 06-24-2021 Telephone encounter Girma Chang [facility] [employer] Start: 06-11-2021 End: 06-11-2021 ambulatory Girma Tan Other [facility] Other Start: 06-11-2021 Nutrition therapy Girma Garcia [facility] Start: 03-18-2021 End: 03-18-2021 ambulatory Stacie Muro Other [facility] Other Start: 03-18-2021 Telephone encounter Stacie Garcia [facility] Start: 03-07-2021 Office outpatient visit 25 minutes [facility] Procedures Date Procedure Procedure Detail Performing Clinician Start: 09-10-[address] RENETTA MCINTOSH Comment on above: Performed By: #### [facility] #### [facility] [address] [place] [address] Dr. Marta Ashford Payers Date Payer Category Payer Unknown [id number] 2.16.84 [id number] 1960 Unknown [id number] 2.16.84 [id number] 1962 Unknown [id number] 2.16.84 [id number] 1962 Unknown [id number] 2.16.84 [id number] 1962 Unknown [id number] 2.16.84 [id number] 1962 Unknown [id number] 2.16.84 [id number] 1959 Unknown [id number] 2.16.8 [id number] Social History Date Type Detail Facility Sex Assigned At [facility] Other Evaluation note 06-11-2021 Note Date & Type Note Facility 06-11-2021 Evaluation note Encounter Date Diagnosis Assessment Notes Jun, Abnormal weight gain (ICD-10 - R63.5) Jun, Fatty liver (ICD-10 - K76.0) Jun, Type 2 diabetes mellitus with unspecified complications (ICD-10 - E11.8) Jun, Increased blood pressure (not hypertension) (ICD-10 - R03.0) Jun, Knee osteoarthritis (ICD-10 - M17.9) Jun, GERD (gastroesophageal reflux disease) (ICD-10 - K21.9) Jun, Metabolic syndrome X (ICD-10 - E88.81) [facility] Other Evaluation note 03-07-2021 Note Date & Type Note Facility 03-07-2021 Evaluation note Encounter Date Diagnosis Assessment Notes Feb, Right upper quadrant abdominal pain (ICD-10 - R10.11) Feb, Hiatal hernia (ICD-10 - K44.9) Feb, Esophagitis (ICD-10 - K20.90) Feb, Diverticulosis (ICD-10 - K57.90) Feb, Hemorrhoids (ICD-10 - K64.9) Feb, Fatty liver (ICD-10 - K76.0) PATIENT IS ENCOURAGED WEIGHT LOSS WILL SEND REFERRAL TO DR. NICE [facility] [employer] Other Evaluation note Note Date & Type Note Facility Evaluation note No Information [facility] [employer] Other History general Narrative - Reported Note Date & Type Note Facility History general Narrative - Reported Type Medical History Arthritis Medical History SHANNON Medical History type II diabetes [facility] [employer] Other Reason for Referral Reason FORM -EVAL AND TREAT Diagnosis 1 Fatty liver (K76.0) Referral Organization [facility] Referring Provider First Name Oskar Referring Provider Last Name Elizabeth Referring Provider Specialty Gastroenter ology Referred Organization [facility] Referred Provider Girma Tan Jr. Referred Address [address],[facility],[place], [place],[address] Referred Provider Specialty Internal Med icine Referral Priority Routine General Notes Josseline Leann 021 02:55:03 PM > WILL SEND FORM ONCE COMPLETEDDeana Walton 03/07/2021 03:03:35 PM >NOTED Summary Purpose Family History No Family History Records FoundNo Family History Records FoundNo Family History Records Found Advance Directives No Advanced Directives Records FoundNo Advanced Directives Records FoundNo Advanced Directives Records Found Additional Source Comments REASON FOR VISIT (unrecogniz ed section and content) PATIENT HERE FOR FOLLOW UP T O EGD/COLONOSCOPY ON 01-28-2021 FOR RIGHT UPPER QUADRANT PAIN. PATIENT STATES THAT HE IS FEELING BETTER BUT STILL HAVING SOME DISCOMFORT.WMN ReferralCONSULT NOTE READYInitial WMNn/s for RD group nutrition 07/02 (unrecognized sect ion and content) No Status Records FoundNo Status Records FoundNo Status Records Found INFORMATION SOURCE (unrecogn ized section and content) DATE CREATED AUTHOR 12/10/2021 [facility] DATE CREATED AUTHOR AUTHOR'S ORGANIZ ATION 08/04/2022 [facility] DATE CREATED AUTHOR AUTHOR'S ORGANIZ ATION 12/13/2023 [facility] FOR RECORDS PERTAINING TO PATIENTS WHO ARE OR HAVE BEEN ENROLLED IN A CHEMICAL DEPENDENCY/SUBSTANCEABUSE PROGRAM, SOME INFORMATION MAY BE OMITTED. This clinical summary was aggregated from multiple sources. Caution should be exercised in using it in the provision of clinical care. This summary normalizes information from multiple sources, and as a consequence, information in this document may materially change the coding, format and clinical context of patient data. In addition, data may be omitted in some cases. CLINICAL DECISIONS SHOULD BE BASED ON THE PRIMARY CLINICAL RECORDS. [facility] [employer] [facility]. provides no warranty or guarantee of the accuracy or completeness of information in this document.
[2023-12-25 10:07] LABS: Basophils Absolute Auto 0.1 10^3/uL (0.0-0.1); Basophils Percent Auto 0.7 % (0.2-2.0); Eosinophils Absolute Auto 0.2 10^3/uL (0.0-0.7); Hematocrit 44.6 % (42.0-54.0); Hemoglobin 14.8 g/dL (14.0-18.0); Immature Granulocytes Abs Auto 0.03 10^3/uL (0.00-0.03); Immature Granulocytes Pct Auto 0.3 % (0.0-0.5); Lymphocytes Absolute Auto 2.8 10^3/uL (1.2-3.8); Lymphocytes Percent Auto 31.9 % (20.5-60.0); Mean Corpuscular HGB Conc 33.2 g/dL (29.9-35.2); Mean Corpuscular Volume 96.5 fL (80.0-94.0); Mean Platelet Volume 11.3 fL (9.5-13.5); Monocytes Absolute Auto 0.6 10^3/uL (0.3-0.8); Monocytes Percent Auto 6.5 % (1.7-12.0); Neutrophils Absolute Auto 5.2 10^3/uL (1.4-6.5); Neutrophils Percent Auto 58.6 % (43.0-75.0); Platelet Count 186 10^3/uL (150-450); Red Blood Count 4.62 10^6/uL (4.70-6.10); Red Cell Distribution Width 11.9 % (11.0-15.0); White Blood Count 8.8 10^3/uL (4.0-11.0)
[2023-12-25 10:23] LABS: Estimated Average Glucose 243 mg/dL; Glycohemoglobin A1C 10.1 % (4.5-6.2)
[2023-12-25 11:07] LABS: Prostate Specific Antigen Scrn 1.66 ng/mL (<=4.00)
[2023-12-25 11:44] LABS: Carbon Dioxide 26.2 mmol/L (21.0-32.0); Chloride 99 mmol/L (98-107); Sodium 133 mmol/L (136-145)
[2023-12-25 11:46] LABS: BUN Creatinine Ratio 19.8; Bilirubin Direct 0.1 mg/dL (0.0-0.2); Bilirubin Total 0.8 mg/dL (0.2-1.0); Calcium 8.9 mg/dL (8.5-10.1); Estimated GFR (African America >60 (>=60); Estimated GFR (Non-African Ame >60 (>=60); Glucose 203 mg/dL (74-106)
[2023-12-25 11:47] LABS: Alanine Aminotransferase 87 U/L (16-63); Albumin Globulin Ratio 0.7; Albumin Level 3.2 g/dL (3.4-5.0); Alkaline Phosphatase 55 U/L (46-116); Aspartate Amino Transferase 58 U/L (15-37); Globulin 4.3 g/dL; Total Protein 7.5 g/dL (6.4-8.2); Triglycerides 192 mg/dL (<=150); VLDL CHOLESTEROL 38.4 mg/dL
[2023-12-25 11:48] LABS: Chol HDL Ratio 3.6; Cholesterol 151 mg/dL (<=200); HDL Cholesterol 42 mg/dL (40-60); Thyroid Stimulating Hormone 1.956 uIU/mL (0.358-3.740)
[2023-12-25 11:49] LABS: Potassium 5.2 mmol/L (3.5-5.1)
[2023-12-26 09:16] LABS: Albumin, Random Urine 48.4 ug/mL (Not Estab.)
== END 2023-12-25 09:35 | disposition home or self-care (01) ==
LOC: LAB 09:35
PROVIDERS: PCP Family Medicine; Visit Provider Family Medicine
DX: Z00.00 Encounter for general adult medical examination without abnormal findings (principal); E11.65 Type 2 diabetes mellitus with hyperglycemia
CPT/HCPCS: 36415; 80048; 80061; 80076; 82043; 83036; 84443; 85025; G0103

== ENCOUNTER 2024-02-05 07:15 | Outpatient (OUT) | payer OTHER, SELFPAY ==
--- OUTSIDE RECORDS SUMMARY | 2024-02-05 07:17 | XMS_ITS | CCD ---
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 Role Phone Oskar Johnson Unavailable Stacie Muro Unavailable DominickGirma topete Unavailable ADAN, [...] Unavailable NADERER, DR RENETTA Cobb Consulting Unavailable [place], DR CASTILLO Primary Care Unavailable YOLI ., DR CASTILLO Consulting Unavailable NADERER, DR RENETTA Cobb Admitting Unavailable NADERER, DR RENETTA Cobb Attending Unavailable NADERER, DR RENETTA Cobb Consulting Unavailable STEPHANIE, MISBAH Consulting Unavailable LAITH, SHAIKH Isaac Consulting Unavailable ERNESTINE, KIZZY Consulting Unavailable JEAN PIERRE, ROVERTO Consulting Unavailable NADERER, RENETTA Attending Unavailable NADERER, RENETTA Attending Unavailable NADERER, RENETTA [...] Resolved: 03-07-2021 Episodic Other aftercare (1 source) care home (current) use of oral hypoglycemic drugs; Translations: [DETENTION USE ORAL HYPOGLYCEMIC DX] Onset: 08-21-2021 Episodic [...] 2022 ADA RECOMMENDATION SEE BELOW Normal [facility] Comment on above: Result Comment: ADA RECOMMENDED LIMIT 4.0 - 6.0 ADA THERAPEUTIC TARGET < 7.0 ACTION SUGGESTED > 7.0 Performed By: #### C FANTASMAMAN #### [facility] [address] [place] [address] Dr. Marta Ashford Glucose [Mass/Vol] 243 mg/dL Normal [facility] Comment on above: Performed By: #### C FANTASMAMAN #### [facility] [address] [place] [address] Dr. Marta Ashford HbA1c (Bld) [Mass fraction] 10.1 % Critically high 4.5-6.2 [facility] Comment on above: Performed By: #### C JIMENA #### [facility] [address] [place] [address] Dr. Marta Ashford GLYCOHEMOGLOBIN A1Con 2021 ADA RECOMMENDATION SEE BELOW Normal [facility] Comment on above: Result Comment: ADA RECOMMENDED LIMIT 4.0 - 6.0 ADA THERAPEUTIC TARGET < 7.0 ACTION SUGGESTED > 7.0 Performed By: #### A 1C #### [facility] [address] [place] [address] Dr. Marta Ashford Glucose [Mass/Vol] 266 mg/dL Normal [facility] Comment on above: Performed By: #### A 1C #### [facility] [address] [place] [address] Dr. Marta Ashford HbA1c (Bld) [Mass fraction] 10.9 % Critically high 4.5-6.2 [facility] Comment on above: Performed By: #### A 1C #### [facility] [address] [place] [address] Dr. Marta Ashford CBC AUTO DIFFon 09-10-2021 BASO # 0.1 103/ul Normal 0.0-0.1 [facility] Comment on above: Performed By: #### A 1C #### [facility] [address] [place] [address] Dr. Marta Ashford Basophils/100 WBC (Bld) 0.7 % Normal 0.2-2.0 [facility] Comment on above: Performed By: #### A 1C #### [facility] [address] [place] [address] Dr. Marta Ashford EO # 0.3 103/ul Normal 0.0-0.7 [facility] Comment on above: Performed By: #### A 1C #### [facility] [address] [place] [address] Dr. Marta Ashford Eosinophils/100 WBC (Bld) 2.9 % Normal 0.9-7.0 [facility] Comment on above: Performed By: #### A 1C #### [facility] [address] [place] [address] Dr. Marta Ashford Erythrocyte distribution width (RBC) [Ratio] 12.6 % Normal 11.0-15.0 [facility] Comment on above: Performed By: #### A 1C #### [facility] [address] [place] [address] Dr. Marta Ashford Hematocrit (Bld) [Volume fraction] 45.0 % Normal 42.0-54.0 [facility] Comment on above: Performed By: #### A 1C #### [facility] [address] [place] [address] Dr. Marta Ashford Hemoglobin (Bld) [Mass/Vol] 14.4 g/dL Normal 14.0-18.0 [facility] Comment on above: Performed By: #### A 1C #### [facility] [address] [place] [address] Dr. Marta Ashford IG # 0.06 10e3/ul Critically high 0.00-0.03 [facility] Comment on above: Performed By: #### A 1C #### [facility] [address] [place] [address] Dr. Marta Ashford IG % 0.6 % Critically high 0.0-0.5 [facility] Comment on above: Performed By: #### A 1C #### [facility] [address] [place] [address] Dr. Marta Ashford LYMPH # 3.3 103/ul Normal 1.2-3.8 [facility] Comment on above: Performed By: #### A 1C #### [facility] [address] [place] [address] Dr. Marta Ashford Lymphocytes/100 WBC (Bld) 34.5 % Normal 20.5-60.0 [facility] Comment on above: Performed By: #### A 1C #### [facility] [address] [place] [address] Dr. Marta Ashford MANUAL DIFF REQ NO Normal [facility] Comment on above: Performed By: #### A 1C #### [facility] [address] [place] [address] Dr. Marta Ashford MCH (RBC) [Entitic mass] 31.0 pg Normal 25.9-34.0 [facility] Comment on above: Performed By: #### A 1C #### [facility] [address] [place] [address] Dr. Marta Ashford MCHC (RBC) [Mass/Vol] 32.0 g/dL Normal 29.9-35.2 [facility] Comment on above: Performed By: #### A 1C #### [facility] [address] [place] [address] Dr. Marta Ashford MCV (RBC) [Entitic vol] 96.8 fL Critically high 80.0-94.0 [facility] Comment on above: Performed By: #### A 1C #### [facility] [address] [place] [address] Dr. Marta Ashford MONO # 0.7 103/ul Normal 0.3-0.8 [facility] Comment on above: Performed By: #### A 1C #### [facility] [address] [place] [address] Dr. Marta Ashford Monocytes/100 WBC (Bld) 7.8 % Normal 1.7-12.0 [facility] Comment on above: Performed By: #### A 1C #### [facility] [address] [address] [address] Marta Ashford NEUT # 5.1 103/ul Normal 1.4-6.5 [facility] Comment on above: Performed By: #### A 1C #### [facility] [address] [address] [address] Marta Ashford Neutrophils/100 WBC (Bld) 53.5 % Normal 43.0-75.0 [facility] Comment on above: Performed By: #### A 1C #### [facility] [address] [address] [address] Marta Ashford Platelet mean volume (Bld) [Entitic vol] 12.3 fL Normal 9.5-13.5 [facility] Comment on above: Performed By: #### A 1C #### [facility] [address] [address] [address] Marta Ashford PLT 170 103/ul Normal 150-450 [facility] Comment on above: Performed By: #### A 1C #### [facility] [address] [address] [address] Marta Ashford RBC 4.65 106/ul Critically low 4.70-6.10 [facility] Comment on above: Performed By: #### A 1C #### [facility] [address] [address] [address] Marta Ashford WBC 9.5 103/ul Normal 4.0-11.0 [facility] Comment on above: Performed By: #### A 1C #### [facility] [address] [address] [address] Marta Ashford DIRECT LDLon 09-10-2021 Cholesterol in LDL [Mass/Vol] 96 mg/dL Normal [facility] Comment on above: Performed By: #### C BCMAN #### [facility] [address] [address] [address] Marta Ashford DLDL NORMAL SEE BELOW Normal [facility] Comment on above: Result Comment: <100 mg/dl OPTIMAL 100 - 129 mg/dl NEAR OR ABOVE OPTIMAL 130 - 159 mg/dl BORDERLINE HIGH 160 - 189 mg/dl HIGH >190 mg/dl VERY HIGH Performed By: #### C JIMENA #### [facility] [address] [address] [address] Marta Ashford GLYCOHEMOGLOBIN A1Con 2021 ADA RECOMMENDATION SEE BELOW Normal [facility] Comment on above: Result Comment: ADA RECOMMENDED LIMIT 4.0 - 6.0 ADA THERAPEUTIC TARGET < 7.0 ACTION SUGGESTED > 7.0 Performed By: #### A 1C #### [facility] [address] [address] [address] Marta Ashford Glucose [Mass/Vol] 223 mg/dL Normal [facility] Comment on above: Performed By: #### A 1C #### [facility] [address] [place] [address] Dr. Marta Ashford HbA1c (Bld) [Mass fraction] 9.4 % Critically high 4.5-6.2 [facility] Comment on above: Performed By: #### A 1C #### [facility] [address] [address] [address] Marta Ashford LIPID PROFILEon 09-10-2021 CHOL-HDL RATIO NORM SEE BELOW Normal [facility] Comment on above: Result Comment: 3.3 - 4.4 LOW RISK 4.4 - 7.1 AVERAGE RISK 7.1 - 11.0 MODERATE RISK >11.0 HIGH RISK Performed By: #### C JIMENA #### [facility] [address] [address] [address] Marta Ashford Cholesterol [Mass/Vol] 209 mg/dL Critically high <=200 [facility] Comment on above: Performed By: #### C JIMENA #### [facility] [address] [id number] Marta Ashford Cholesterol in HDL [Mass/Vol] 34 mg/dL Critically low 40-60 [facility] Comment on above: Performed By: #### C JIMENA #### [facility] [address] [address] [address] Marta Ashford Cholesterol.total/Chol esterol in HDL [Mass ratio] 6.1 {ratio} Normal [facility] Comment on above: Performed By: #### C JIMENA #### [facility] [address] [address] [address] Marta Ashford HDL NORMAL > or = 60 mg/dl - LO W CARDIOVASCULAR RISK <40 mg/dl - HIGH CARDIOVASCULAR RISK Normal [facility] Comment on above: Performed By: #### C JIMENA #### [facility] [address] [address] [address] Marta Ashford LDL CALC NORMAL SEE BELOW Normal [facility] Comment on above: Result Comment: <100 mg/dl OPTIMAL 100 - 129 mg/dl NEAR OR ABOVE OPTIMAL 130 - 159 mg/dl BORDERLINE HIGH 160 - 189 mg/dl HIGH >190 mg/dl VERY HIGH Performed By: #### C JIMENA #### [facility] [address] [place] [address] Dr. Marta Ashford Triglyceride [Mass/Vol] 591 mg/dL Critically high <=150 [facility] Comment on above: Performed By: #### C JIMENA #### [facility] [address] [place] [address] Dr. Marta Ashford VLDL CALC 118.2 mg/dL Normal [facility] Comment on above: Performed By: #### C JIMENA #### [facility] [address] [place] [address] Dr. Marta Ashford LIVER PROFILEon 09-10-2021 Albumin [Mass/Vol] 3.6 g/dL Normal 3.4-5.0 [facility] Comment on above: Performed By: #### C JIMENA #### [facility] [address] [place] [address] Dr. Marta Ashford Albumin/Globulin [Mass ratio] 0.9 {ratio} Normal [facility] Comment on above: Performed By: #### C JIMENA #### [facility] [address] [place] [address] Dr. Marta Ashford ALP [Catalytic activity/Vol] 75 U/L Normal 46-116 [facility] Comment on above: Performed By: #### C JIMENA #### [facility] [address] [place] [address] Dr. Marta Ashford ALT [Catalytic activity/Vol] 40 U/L Normal 16-63 [facility] Comment on above: Performed By: #### C JIMENA #### [facility] [address] [address] [address] Marta Ashford AST [Catalytic activity/Vol] 24 U/L Normal 15-37 [facility] Comment on above: Performed By: #### C JIMENA #### [facility] [address] [address] [address] Marta Ashford BILI, CONJUGATED 0.1 mg/dL Normal 0.0-0.2 [facility] Comment on above: Performed By: #### C JIMENA #### [facility] [address] [place] [address] Dr. Marta Ashford Bilirubin [Mass/Vol] 0.3 mg/dL Normal 0.2-1.0 [facility] Comment on above: Performed By: #### C JIMENA #### [facility] [address] [place] [address] Dr. Marta Ashford Globulin (S) [Mass/Vol] 4.1 g/dL Normal [facility] Comment on above: Performed By: #### C JIMENA #### [facility] [address] [place] [address] Dr. Marta Ashford Protein [Mass/Vol] 7.7 g/dL Normal 6.1-8.2 [facility] Comment on above: Performed By: #### C JIMENA #### [facility] [address] [place] [address] Dr. Marta Ashford PROF CHEM 8 (BAS METB)on Anion gap [Moles/Vol] 11.0 mmol/L Normal [facility] Comment on above: Performed By: #### C JIMENA #### [facility] [address] [place] [address] Dr. Marta Ashford Calcium [Mass/Vol] 8.6 mg/dL Normal 8.5-10.1 [facility] Comment on above: Performed By: #### C JIMENA #### [facility] [address] [address] [address] Marta Ashford Chloride [Moles/Vol] 99 mmol/L Normal 98-107 [facility] Comment on above: Performed By: #### C BCVALERY #### [facility] [address] [address] [address] Marta Ashford CO2 [Moles/Vol] 27.0 mmol/L Normal 21.0-32.0 [facility] Comment on above: Performed By: #### C BCVALERY #### [facility] [address] [address] [address] Marta Ashford Creatinine [Mass/Vol] 1.00 mg/dL Normal 0.70-1.30 [facility] Comment on above: Performed By: #### C JIMENA #### [facility] [address] [place] [address] Dr. Marta Ashford EGFR-AF GRENADIAN >60 Normal >=60 [facility] Comment on above: Performed By: #### C JIMENA #### [facility] [address] [address] [address] Marta Ashford EGFR-NON AF GRENADIAN >60 Normal >=60 [facility] Comment on above: Performed By: #### C BCVALERY #### [facility] [address] [place] [address] Dr. Marta Ashford Glucose [Mass/Vol] 289 mg/dL Critically high 74-106 [facility] Comment on above: Performed By: #### C BCVALERY #### [facility] [address] [address] [address] Marta Ashford Potassium [Moles/Vol] 4.0 mmol/L Normal 3.5-5.1 [facility] Comment on above: Performed By: #### C BCVALERY #### [facility] [address] [place] [address] Dr. Marta Ashford Sodium [Moles/Vol] 133 mmol/L Critically low 136-145 [facility] Comment on above: Performed By: #### C JIMENA #### [facility] [address] [place] [address] Dr. Marta Ashford Urea nitrogen [Mass/Vol] 21.0 mg/dL Critically high 7.0-18.0 [facility] Comment on above: Performed By: #### C JIMENA #### [facility] [address] [place] [address] Dr. Marta Ashford Urea nitrogen/Creatinine [Mass ratio] 21.0 mg/mg Normal [facility] Comment on above: Performed By: #### C JIMENA #### [facility] [address] [place] [address] Dr. Marta Ashford TSHon 09-10-2021 TSH 2.331 uIU/mL Normal 0.470-4.680 [facility] Comment on above: Performed By: #### C JIMENA #### [facility] [address] [place] [address] Dr. Marta Ashford TSH RANGE SEE BELOW Normal [facility] Comment on above: Result Comment: <0.3 4 UIU/ml HYPERTHYROID 0.34-5.60 UIU/ml EUTHYROID >5.60 UIU/ml HYPOTHYROID Performed By: #### C JIMENA #### [facility] [address] [place] [address] Dr. Marta Ashford BLOOD CULTURE ID/SENSon 08-09 Aerobe ID + Suscept Final report Abnormal [facility] Comment on above: Performed By: #### C XPOSBL #### [facility] [address] [place] [address] Dr. Marta Ashford Antimicrobial Susceptibility Comment Normal [facility] Comment on above: Result Comment: S = [...] S Performed By: #### C XPOSBL #### [facility] [address] [place] [address] Dr. Marta Ashford Result 1 Comment Abnormal [facility] Comment on above: Result Comment: Esch erichia coli, identified by an automated biochemical system. Received aerobic bottle only. Performed By: #### C XPOSBL #### [facility] [address] [place] [address] Dr. Marta Ashford CBC AUTO DIFFon 08-18-2021 BASO # 0.1 103/ul Normal 0.0-0.1 [facility] Comment on above: Performed By: #### A 1C #### [facility] [address] [place] [address] Dr. Marta Ashford Basophils/100 WBC (Bld) 0.5 % Normal 0.2-2.0 [facility] Comment on above: Performed By: #### A 1C #### [facility] [address] [place] [address] Dr. Marta Ashford EO # 0.1 103/ul Normal 0.0-0.7 [facility] Comment on above: Performed By: #### A 1C #### [facility] [address] [place] [address] Dr. Marta Ashford Eosinophils/100 WBC (Bld) 0.8 % Critically low 0.9-7.0 [facility] Comment on above: Performed By: #### A 1C #### [facility] [address] [place] [address] Dr. Marta Ashford Erythrocyte distribution width (RBC) [Ratio] 12.8 % Normal 11.0-15.0 [facility] Comment on above: Performed By: #### A 1C #### [facility] [address] [place] [address] Dr. Marta Ashford Hematocrit (Bld) [Volume fraction] 40.1 % Critically low 42.0-54.0 [facility] Comment on above: Performed By: #### A 1C #### [facility] [address] [place] [address] Dr. Marta Ashford Hemoglobin (Bld) [Mass/Vol] 12.9 g/dL Critically low 14.0-18.0 [facility] Comment on above: Performed By: #### A 1C #### [facility] [address] [address] [address] Marta Ashford IG # 0.17 10e3/ul Critically high 0.00-0.03 [facility] Comment on above: Performed By: #### A 1C #### [facility] [address] [address] [address] Marta Ashford IG % 1.0 % Critically high 0.0-0.5 [facility] Comment on above: Performed By: #### A 1C #### [facility] [address] [address] [address] Marta Ashford LYMPH # 3.3 103/ul Normal 1.2-3.8 [facility] Comment on above: Performed By: #### A 1C #### [facility] [address] [place] [address] Dr. Marta Ashford Lymphocytes/100 WBC (Bld) 19.0 % Critically low 20.5-60.0 [facility] Comment on above: Performed By: #### A 1C #### [facility] [address] [place] [address] Dr. Marta Ashofrd MANUAL DIFF REQ NO Normal [facility] Comment on above: Performed By: #### A 1C #### [facility] [address] [place] [address] Dr. Marta Ashford MCH (RBC) [Entitic mass] 30.5 pg Normal 25.9-34.0 [facility] Comment on above: Performed By: #### A 1C #### [facility] [address] [address] [address] Marta Ashford MCHC (RBC) [Mass/Vol] 32.2 g/dL Normal 29.9-35.2 [facility] Comment on above: Performed By: #### A 1C #### [facility] [address] [place] [address] Dr. Marta Ashford MCV (RBC) [Entitic vol] 94.8 fL Critically high 80.0-94.0 [facility] Comment on above: Performed By: #### A 1C #### [facility] [address] [address] [address] Marta Ashford MONO # 1.2 103/ul Critically high 0.3-0.8 [facility] Comment on above: Performed By: #### A 1C #### [facility] [address] [address] [address] Marta Ashford Monocytes/100 WBC (Bld) 6.7 % Normal 1.7-12.0 [facility] Comment on above: Performed By: #### A 1C #### [facility] [address] [address] [address] Marta Ashford NEUT # 12.5 103/ul Critically high 1.4-6.5 [facility] Comment on above: Performed By: #### A 1C #### [facility] [address] [place] [address] Dr. Marta Ashford Neutrophils/100 WBC (Bld) 72.0 % Normal 43.0-75.0 [facility] Comment on above: Performed By: #### A 1C #### [facility] [address] [place] [address] Dr. Marta Ashford Platelet mean volume (Bld) [Entitic vol] 11.8 fL Normal 9.5-13.5 [facility] Comment on above: Performed By: #### A 1C #### [facility] [address] [place] [address] Dr. Marta Ashford PLT 149 103/ul Critically low 150-450 [facility] Comment on above: Performed By: #### A 1C #### [facility] [address] [address] [address] Marta Ashford RBC 4.23 106/ul Critically low 4.70-6.10 [facility] Comment on above: Performed By: #### A 1C #### [facility] [address] [address] [address] Marta Ashford WBC 17.4 103/ul Critically high 4.0-11.0 [facility] Comment on above: Performed By: #### A 1C #### [facility] [address] [place] [address] Dr. Mrata Ashford CULTURE URINEon 08-18-2021 CULTURE URINE Isolate 1 Escherichia coli >100,000 [...] F Trimethoprim/Sulfamet hoxazole <=20 S F Normal [facility] Comment on above: Performed By: #### A 1C #### [facility] [address] [place] [address] Dr. Marta Ashford PH VENOUS BLOODon 08-18-2021 PCO2 VENOUS 36.1 mmHg Critically low 40.0-52.0 [facility] Comment on above: Performed By: #### A 1C #### [facility] [address] [place] [address] Dr. Marta Ashford pH VENOUS 7.452 Critically high 7.330-7.430 [facility] Comment on above: Performed By: #### A 1C #### [facility] [address] [place] [address] Dr. Marta Ashford POINT OF CARE GLUCOSEon 08-09 Glucose [Mass/Vol] 276 mg/dL Critically high 74-106 [facility] Comment on above: Performed By: #### P OCGLUC #### [facility] [address] [place] [address] Dr. Marta Ashford PROF CHEM 8 (BAS METB)on Anion gap [Moles/Vol] 12.5 mmol/L Normal [facility] Comment on above: Performed By: #### P HVEN #### [facility] [address] [place] [address] Dr. Marta Ashford Calcium [Mass/Vol] 8.5 mg/dL Normal 8.5-10.1 [facility] Comment on above: Performed By: #### P HVEN #### [facility] [address] [address] [address] Marta Ashford Chloride [Moles/Vol] 105 mmol/L Normal 98-107 [facility] Comment on above: Performed By: #### P HVEN #### [facility] [address] [address] [address] Marta Ashford CO2 [Moles/Vol] 25.5 mmol/L Normal 22.0-30.0 [facility] Comment on above: Performed By: #### P HVEN #### [facility] [address] [place] [address] Dr. Marta Ashford Creatinine [Mass/Vol] 0.90 mg/dL Normal 0.66-1.25 [facility] Comment on above: Performed By: #### P HVEN #### [facility] [address] [place] [address] Dr. Marta Ashford EGFR-AF GRENADIAN >60 Normal >=60 [facility] Comment on above: Performed By: #### P HVEN #### [facility] [address] [place] [address] Dr. Marta Ashford EGFR-NON AF GRENADIAN >60 Normal >=60 [facility] Comment on above: Performed By: #### P HVEN #### [facility] [address] [address] [address] Marta Ashford Glucose [Mass/Vol] 239 mg/dL Critically high 74-106 [facility] Comment on above: Performed By: #### P HVEN #### [facility] [address] [place] [address] Dr. Marta Ashford Potassium [Moles/Vol] 4.0 mmol/L Normal 3.4-5.0 [facility] Comment on above: Performed By: #### P HVEN #### [facility] [address] [place] [address] Dr. Marta Ashford Sodium [Moles/Vol] 139 mmol/L Normal 137-145 [facility] Comment on above: Performed By: #### P HVEN #### [facility] [address] [address] [address] Marta Ashford Urea nitrogen [Mass/Vol] 13.0 mg/dL Normal 7.0-18.0 [facility] Comment on above: Performed By: #### P HVEN #### [facility] [address] [place] [address] Dr. Marta Ashford Urea nitrogen/Creatinine [Mass ratio] 14.4 mg/mg Normal [facility] Comment on above: Performed By: #### P HVEN #### [facility] [address] [place] [address] Dr. Marta Ashford CBC W MANUAL DIFFon 08-18-19 22 ATYPICAL LYMPH # Normal [facility] Comment on above: Performed By: #### C JIMENA #### [facility] [address] [place] [address] Dr. Marta Ashford ATYPICAL LYMPH % Normal [facility] Comment on above: Performed By: #### C BCMAN #### [facility] [address] [place] [address] Dr. Marta Ashford BAND # 2.7 103/ul Critically high 0.0-0.3 [facility] Comment on above: Performed By: #### C BCVALERY #### [facility] [address] [place] [address] Dr. Marta Ashford BAND % 15 % Critically high 0-5 [facility] Comment on above: Performed By: #### C BCMAN #### [facility] [address] [place] [address] Dr. Marta Ashford BASOM # 0.00 103/ul Normal 0.00-0.10 [facility] Comment on above: Performed By: #### C BCMAN #### [facility] [address] [place] [address] Dr. Marta Ashford BASOM % 0.0 % Critically low 0.2-2.0 [facility] Comment on above: Performed By: #### C JIMENA #### [facility] [address] [place] [address] Dr. Marta Ashford BLAST # Normal [facility] Comment on above: Performed By: #### C BCVALERY #### [facility] [address] [place] [address] Dr. Marta Ashford BLAST % Normal [facility] Comment on above: Performed By: #### C BCVALERY #### [facility] [address] [place] [address] Dr. Marta Ashford CORRECTED WBC Normal 4.0-11.0 [facility] Comment on above: Performed By: #### C BCVALERY #### [facility] [address] [place] [address] Dr. Marta Ashford EOS # 0.00 103/ul Normal 0.00-0.70 [facility] Comment on above: Performed By: #### C BCVALERY #### [facility] [address] [place] [address] Dr. Marta Ashford EOS% 0.0 % Critically low 0.9-7.0 [facility] Comment on above: Performed By: #### C JIMENA #### [facility] [address] [place] [address] Dr. Marta Ashford HCT 37.5 % Critically low 42.0-54.0 [facility] Comment on above: Performed By: #### C JIMENA #### [facility] [address] [place] [address] Dr. Marta Ashford HGB 12.1 g/dl Critically low 14.0-18.0 [facility] Comment on above: Performed By: #### C BCVALERY #### [facility] [address] [place] [address] Dr. Marta Ashford LYMPHM # 3.20 103/ul Normal 1.20-3.80 [facility] Comment on above: Performed By: #### C BCVALERY #### [facility] [address] [place] [address] Dr. Marta Ashford LYMPHM% 18.0 % Critically low 20.5-60.0 [facility] Comment on above: Performed By: #### C BCAVLERY #### [facility] [address] [address] [address] Marta Ashford MCH 31.2 pg Normal 25.9-34.0 [facility] Comment on above: Performed By: #### C JIMENA #### [facility] [address] [place] [address] Dr. Marta Ashford MCHC 32.3 g/dl Normal 29.9-35.2 [facility] Comment on above: Performed By: #### C BCVALERY #### [facility] [address] [address] [address] Marta Ashford MCV 96.6 fL Critically high 80.0-94.0 [facility] Comment on above: Performed By: #### C BCVALERY #### [facility] [address] [place] [address] Dr. Marta Ashford METAMYELOCYTE # Normal [facility] Comment on above: Performed By: #### C JIMENA #### [facility] [address] [place] [address] Dr. Marta Ashford METAMYELOCYTE % Normal [facility] Comment on above: Performed By: #### C JIMENA #### [facility] [address] [place] [address] Dr. Marta Ashford MONOM# 1.25 103/ul Critically high 0.30-0.80 [facility] Comment on above: Performed By: #### C JIMENA #### [facility] [address] [place] [address] Dr. Marta Ashford MONOM% 7.0 % Normal 1.7-12.0 [facility] Comment on above: Performed By: #### C JIMENA #### [facility] [address] [place] [address] Dr. Marta Ashford MPV 11.4 fL Normal 9.5-13.5 [facility] Comment on above: Performed By: #### C JIMENA #### [facility] [address] [place] [address] Dr. Marta Ashford MYELOCYTE # Normal [facility] Comment on above: Performed By: #### C JIMENA #### [facility] [address] [address] [address] Marta Ashford MYELOCYTE % Normal [facility] Comment on above: Performed By: #### C BCMAN #### [facility] [address] [address] [address] Marta Ashford NRBC Normal [facility] Comment on above: Performed By: #### C BCVALERY #### [facility] [address] [address] [address] Marta Ashford PLT 106 103/ul Critically low 150-450 [facility] Comment on above: Performed By: #### C BCVALERY #### [facility] [address] [address] [address] Marta Ashford RBC 3.88 106/ul Critically low 4.70-6.10 [facility] Comment on above: Performed By: #### C JIMENA #### [facility] [address] [address] [address] Marta Ashford RDW 13.1 % Normal 11.0-15.0 [facility] Comment on above: Performed By: #### C BCVALERY #### [facility] [address] [address] [address] Marta Ashford SEG # 10.68 103/ul Critically high 1.40-6.50 [facility] Comment on above: Performed By: #### C BCVALERY #### [facility] [address] [address] [address] Marta Ashford SEG % 60.0 % Normal 43.0-75.0 [facility] Comment on above: Performed By: #### C BCVALERY #### [facility] [address] [address] [address] Marta Ashford WBC 17.8 103/ul Critically high 4.0-11.0 [facility] Comment on above: Performed By: #### C BCMAN #### [facility] [address] [address] [address] Marta Ashford PH VENOUS BLOODon 08-17-2021 PCO2 VENOUS 37.5 mmHg Critically low 40.0-52.0 [facility] Comment on above: Performed By: #### P HVEN #### [facility] [address] [address] [address] Marta Ashford pH VENOUS 7.390 Normal 7.330-7.430 [facility] Comment on above: Performed By: #### P HVEN #### [facility] [address] [address] [address] Marta Ashford POINT OF CARE GLUCOSEon Glucose [Mass/Vol] 261 mg/dL Critically high [address] [place] [address] Comment on above: Performed By: #### A 1C #### [facility] [address] [address] [address] Marta Ashford Glucose [Mass/Vol] 213 mg/dL Critically high [address] [place] [address] Comment on above: Performed By: #### A 1C #### [facility] [address] [address] [address] Marta Ashford Glucose [Mass/Vol] 305 mg/dL Critically high [address] [place] [address] Comment on above: Performed By: #### A 1C #### [facility] [address] [address] [address] Marta Ashford PROF CHEM 8 (BAS METB)on Anion gap [Moles/Vol] 13.8 mmol/L Normal [facility] Comment on above: Performed By: #### A 1C #### [facility] [address] [address] [address] Marta Ashford Calcium [Mass/Vol] 7.3 mg/dL Critically low 8.5-10.1 [facility] Comment on above: Performed By: #### A 1C #### [facility] [address] [address] [address] Marta Ashford Chloride [Moles/Vol] 108 mmol/L Critically high 98-107 [facility] Comment on above: Performed By: #### A 1C #### [facility] [address] [address] [address] Marta Ashford CO2 [Moles/Vol] 22.2 mmol/L Normal 22.0-30.0 [facility] Comment on above: Performed By: #### A 1C #### [facility] [address] [address] [address] Marta Ashford Creatinine [Mass/Vol] 0.95 mg/dL Normal 0.66-1.25 [facility] Comment on above: Performed By: #### A 1C #### [facility] [address] [address] [address] Marta Ashford EGFR-AF GRENADIAN >60 Normal >=60 [facility] Comment on above: Performed By: #### A 1C #### [facility] [address] [address] [address] Marta Ashford EGFR-NON AF GRENADIAN >60 Normal >=60 [facility] Comment on above: Performed By: #### A 1C #### [facility] [address] [place] [address] Dr. Marta Ashford Glucose [Mass/Vol] 181 mg/dL Critically high 74-106 [facility] Comment on above: Performed By: #### A 1C #### [facility] [address] [place] [address] Dr. Marta Ashford Potassium [Moles/Vol] 4.0 mmol/L Normal 3.4-5.0 [facility] Comment on above: Performed By: #### A 1C #### [facility] [address] [place] [address] Dr. Marta Ashford Sodium [Moles/Vol] 140 mmol/L Normal 137-145 [facility] Comment on above: Performed By: #### A 1C #### [facility] [address] [address] [address] Marta Ashford Urea nitrogen [Mass/Vol] 17.0 mg/dL Normal 7.0-18.0 [facility] Comment on above: Performed By: #### A 1C #### [facility] [address] [place] [address] Dr. Marta Ashford Urea nitrogen/Creatinine [Mass ratio] 17.9 mg/mg Normal [facility] Comment on above: Performed By: #### A 1C #### [facility] [address] [address] [address] Marta Ashford BLOOD CULTURE ID PANELon A. baumannii Not detected [facility] Comment on above: Performed By: #### A 1C #### [facility] [address] [place] [address] Dr. Marta GONSALEZD CONTROLS PASSED Normal [facility] Comment on above: Performed By: #### A 1C #### [facility] [address] [address] [address] Marta GONSALZEDBTHD BLOOD CULTURE BOTTLE INFORMATION [facility] Comment on above: Performed By: #### A 1C #### [facility] [address] [place] [address] Dr. Marta GONSALEZDHD1 ANTIMICROBIAL RESISTANCE GENES [facility] Comment on above: Performed By: #### A 1C #### [facility] [address] [place] [address] Dr. Marta GONSALEZDHD2 SEE BELOW [facility] Comment on above: Result Comment: KPC- carbapenem resistance gene, mecA- methecillin resistance gene, van A/B- vancomycin resistance gene Note: Antimicrobial resitance can occur via multiple mechanisms. A Not Detected result for the [employer] antomicrobial resistance gene assays does not indicate antimicrobial susceptibility. Subculturing is required for specis identificationand susceptibility testing of isolates. Performed By: #### A 1C #### [facility] [address] [place] [address] Dr. Marta GONSALEZDHD3 Positive [facility] Comment on above: Performed By: #### A 1C #### [facility] [address] [place] [address] Dr. Marta GONSALEZDHD4 Negative [facility] Comment on above: Performed By: #### A 1C #### [facility] [address] [place] [address] Dr. Marta GONSALEZDHD5 YEAST [facility] Comment on above: Performed By: #### A 1C #### [facility] [address] [place] [address] Dr. Marta GONSALEZDHD6 SEE BELOW Normal [facility] Comment on above: Result Comment: Note : All genus and species BCID [employer] results will be verified post subculturing via Maldi-Tof MS testing methodology. Performed By: #### A 1C #### [facility] [address] [place] [address] Dr. Marta Ashford Bottle Set: Set 2 Normal [facility] Comment on above: Performed By: #### A 1C #### [facility] [address] [place] [address] Dr. Marta Ashford Bottle: Aerobic Normal [facility] Comment on above: Performed By: #### A 1C #### [facility] [address] [place] [address] Dr. Marta Ashford Surekha albicans Not detected Normal [facility] Comment on above: Performed By: #### A 1C #### [facility] [address] [place] [address] Dr. Marta Ashford Surekha glabrata Not detected Normal [facility] Comment on above: Performed By: #### A 1C #### [facility] [address] [place] [address] Dr. Marta Ashford Surekha Krusei Not detected Normal [facility] Comment on above: Performed By: #### A 1C #### [facility] [address] [place] [address] Dr. Marta Ashford Surekha Parapsilosis Not detected Normal [facility] Comment on above: Performed By: #### A 1C #### [facility] [address] [place] [address] Dr. Marta Ashford Surekha Tropicalis Not detected Normal [facility] Comment on above: Performed By: #### A 1C #### [facility] [address] [place] [address] Dr. Marta Ashford E. Cloacae complex Not detected Normal [facility] Comment on above: Performed By: #### A 1C #### [facility] [address] [place] [address] Dr. Marta Ashford Enterobacteriaceae Detected Critically abnormal [facility] Comment on above: Performed By: #### A 1C #### [facility] [address] [place] [address] Dr. Marta Ashford Enterococcus Not detected Normal [facility] Comment on above: Performed By: #### A 1C #### [facility] [address] [place] [address] Dr. Marta Ashford Escheria coli Detected Critically abnormal [facility] Comment on above: Performed By: #### A 1C #### [facility] [address] [place] [address] Dr. Marta Ashford K. oxytoca Not detected Normal [facility] Comment on above: Performed By: #### A 1C #### [facility] [address] [place] [address] Dr. Marta Ashford K. pneumoniae Not detected Normal [facility] Comment on above: Performed By: #### A 1C #### [facility] [address] [place] [address] Dr. Marta Ashford KPC Resistant Gene Not detected Normal [facility] Comment on above: Performed By: #### A 1C #### [facility] [address] [place] [address] Dr. Marta Ashford List. monocytogenes Not detected Normal [facility] Comment on above: Performed By: #### A 1C #### [facility] [address] [place] [address] Dr. Marta Ashford mecA Resistant Gene Not Applicable Normal [facility] Comment on above: Performed By: #### A 1C #### [facility] [address] [place] [address] Dr. Marta Ashford Proteus Not detected Normal [facility] Comment on above: Performed By: #### A 1C #### [facility] [address] [place] [address] Dr. Marta Ashford Pseud. aeruginosa Not detected Normal [facility] Comment on above: Performed By: #### A 1C #### [facility] [address] [place] [address] Dr. Marta Ashford Seratia marcescens Not detected Normal [facility] Comment on above: Performed By: #### A 1C #### [facility] [address] [place] [address] Dr. Marta Ashford Site: left hand Normal [facility] Comment on above: Performed By: #### A 1C #### [facility] [address] [place] [address] Dr. Marta Ashford Staph. aureus Not detected Normal [facility] Comment on above: Performed By: #### A 1C #### [facility] [address] [place] [address] Dr. Marta Ashford Staphylococcus Not detected Normal [facility] Comment on above: Performed By: #### A 1C #### [facility] [address] [place] [address] Dr. Marat Ashford Strep. agalactiae Not detected Normal [facility] Comment on above: Performed By: #### A 1C #### [facility] [address] [place] [address] Dr. Marta Ashford Strep. pneumoniae Not detected Normal [facility] Comment on above: Performed By: #### A 1C #### [facility] [address] [place] [address] Dr. Marta Ashford Strep. pyogenes Not detected Normal [facility] Comment on above: Performed By: #### A 1C #### [facility] [address] [place] [address] Dr. Marta Ashford Streptococcus Not detected Normal [facility] Comment on above: Performed By: #### A 1C #### [facility] [address] [place] [address] Dr. Marta Ashford Cheyenne/B Resist. Gene Not Applicable Normal [facility] Comment on above: Performed By: #### A 1C #### [facility] [address] [place] [address] Dr. Marta Ashford CARDIAC PAOLO 3-6on 2 CK [Catalytic activity/Vol] 112 U/L Normal 55-170 [facility] Comment on above: Performed By: #### P HVEN #### [facility] [address] [place] [address] Dr. Marta Ashford CK.MB [Mass/Vol] 1.13 ng/mL Normal <=2.37 [facility] Comment on above: Performed By: #### P HVEN #### [facility] [address] [place] [address] Dr. Marta Ashford HSTROP 283.1 pg/mL Critically high 4.0-42.2 [facility] Comment on above: Result Comment: CUT- OFF POINTS HAVE BEEN ESTABLISHED BASED ON THE FOURTH UNIVERSAL DEFINITIONS OF MYOCARDIAL INFARCTION. THE UPPER REFERENCE LIMIT (URL) OF TROPONIN, DEFINED THE 99TH PERCENTILE OF cTnI DISTRIBUTION IN A REFERENCE POPULATION, HAS BEEN CONFIRMED THE DECISION THRESHOLD FOR PR DIAGNOSIS. TEST REPEATED CRITICAL VALUE VERIFIED Performed By: #### P HVEN #### [facility] [address] [place] [address] Dr. Marta Ashford CK [Catalytic activity/Vol] 98 U/L Normal 55-170 [facility] Comment on above: Performed By: #### A 1C #### [facility] [address] [place] [address] Dr. Marta Ashford CK.MB [Mass/Vol] 1.08 ng/mL Normal <=2.37 [facility] Comment on above: Performed By: #### A 1C #### [facility] [address] [place] [address] Dr. Marta MCKEONTRKASANDRA 310.8 pg/mL Critically high 4.0-42.2 [facility] Comment on above: Result Comment: CUT- OFF POINTS HAVE BEEN ESTABLISHED BASED ON THE FOURTH UNIVERSAL DEFINITIONS OF MYOCARDIAL INFARCTION. THE UPPER REFERENCE LIMIT (URL) OF TROPONIN, DEFINED THE 99TH PERCENTILE OF cTnI DISTRIBUTION IN A REFERENCE POPULATION, HAS BEEN CONFIRMED THE DECISION THRESHOLD FOR PR DIAGNOSIS. test repeated Performed By: #### A 1C #### [facility] [address] [place] [address] Dr. Marta Ashford CARDIAC PAOLO ADMITon 022 CK [Catalytic activity/Vol] 100 U/L Normal 55-170 [facility] Comment on above: Performed By: #### C BCMAN #### [facility] [address] [place] [address] Dr. Marta Ashford CK.MB [Mass/Vol] 1.20 ng/mL Normal <=2.37 [facility] Comment on above: Performed By: #### C JIMENA #### [facility] [address] [place] [address] Dr. Marta Ashford HSTROP 51.6 pg/mL Critically high 4.0-42.2 [facility] Comment on above: Result Comment: CUT- OFF POINTS HAVE BEEN ESTABLISHED BASED ON THE FOURTH UNIVERSAL DEFINITIONS OF MYOCARDIAL INFARCTION. THE UPPER REFERENCE LIMIT (URL) OF TROPONIN, DEFINED THE 99TH PERCENTILE OF cTnI DISTRIBUTION IN A REFERENCE POPULATION, HAS BEEN CONFIRMED THE DECISION THRESHOLD FOR PR DIAGNOSIS. Performed By: #### C JIMENA #### [facility] [address] [place] [address] Dr. Marta Ashford ANGELICA 77.0 ng/mL Normal <=121.0 [facility] Comment on above: Performed By: #### C JIMENA #### [facility] [address] [place] [address] Dr. Marta Ashford CBC AUTO DIFFon 08-16-2021 BASO # 0.0 103/ul Normal 0.0-0.1 [facility] Comment on above: Performed By: #### A 1C #### [facility] [facility] [address] [place] [address] Dr. Marta Ashford Basophils/100 WBC (Bld) 0.2 % Normal 0.2-2.0 [facility] Comment on above: Performed By: #### A 1C #### [facility] [address] [place] [address] Dr. Marta Ashford EO # 0.0 103/ul Normal 0.0-0.7 [facility] Comment on above: Performed By: #### A 1C #### [facility] [address] [place] [address] Dr. Marta Ashford Eosinophils/100 WBC (Bld) 0.2 % Critically low 0.9-7.0 [facility] Comment on above: Performed By: #### A 1C #### [facility] [address] [place] [address] Dr. Marta Ashford Erythrocyte distribution width (RBC) [Ratio] 12.8 % Normal 11.0-15.0 [facility] Comment on above: Performed By: #### A 1C #### [facility] [address] [place] [address] Dr. Marta Ashford Hematocrit (Bld) [Volume fraction] 38.4 % Critically low 42.0-54.0 [facility] Comment on above: Performed By: #### A 1C #### [facility] [address] [place] [address] Dr. Marta Ashford Hemoglobin (Bld) [Mass/Vol] 12.7 g/dL Critically low 14.0-18.0 [facility] Comment on above: Performed By: #### A 1C #### [facility] [address] [place] [address] Dr. Marta Ashford IG # 0.03 10e3/ul Normal 0.00-0.03 [facility] Comment on above: Performed By: #### A 1C #### [facility] [address] [place] [address] Dr. Marta Ashford IG % 0.6 % Critically high 0.0-0.5 [facility] Comment on above: Performed By: #### A 1C #### [facility] [address] [place] [address] Dr. Marta Ashford LYMPH # 0.5 103/ul Critically low 1.2-3.8 [facility] Comment on above: Performed By: #### A 1C #### [facility] [address] [place] [address] Dr. Marta Ashford Lymphocytes/100 WBC (Bld) 11.1 % Critically low 20.5-60.0 [facility] Comment on above: Result Comment: dif. not rqd. same as 08/16/21 Performed By: #### A 1C #### [facility] [address] [place] [address] Dr. Marta Ashford MANUAL DIFF REQ NO Normal [facility] Comment on above: Performed By: #### A 1C #### [facility] [address] [place] [address] Dr. Marta Ashford MCH (RBC) [Entitic mass] 31.1 pg Normal 25.9-34.0 [facility] Comment on above: Performed By: #### A 1C #### [facility] [address] [place] [address] Dr. Marta Ashford MCHC (RBC) [Mass/Vol] 33.1 g/dL Normal 29.9-35.2 [facility] Comment on above: Performed By: #### A 1C #### [facility] [address] [place] [address] Dr. Marta Ashford MCV (RBC) [Entitic vol] 93.9 fL Normal 80.0-94.0 [facility] Comment on above: Performed By: #### A 1C #### [facility] [address] [place] [address] Dr. Marta Ashford MONO # 0.0 103/ul Critically low 0.3-0.8 [facility] Comment on above: Performed By: #### A 1C #### [facility] [address] [place] [address] Dr. Marta Ashford Monocytes/100 WBC (Bld) 0.6 % Critically low 1.7-12.0 [facility] Comment on above: Performed By: #### A 1C #### [facility] [address] [place] [address] Dr. Marta Ashford NEUT # 4.2 103/ul Normal 1.4-6.5 [facility] Comment on above: Performed By: #### A 1C #### [facility] [address] [place] [address] Dr. Marta Ashford Neutrophils/100 WBC (Bld) 87.3 % Critically high 43.0-75.0 [facility] Comment on above: Performed By: #### A 1C #### [facility] [address] [place] [address] Dr. Marta Ashford Platelet mean volume (Bld) [Entitic vol] 11.1 fL Normal 9.5-13.5 [facility] Comment on above: Performed By: #### A 1C #### [facility] [address] [place] [address] Dr. Marta Ashford PLT 114 103/ul Critically low 150-450 [facility] Comment on above: Performed By: #### A 1C #### [facility] [address] [place] [address] Dr. Marta Ashford RBC 4.09 106/ul Critically low 4.70-6.10 [facility] Comment on above: Performed By: #### A 1C #### [facility] [address] [place] [address] Dr. Marta Ashford WBC 4.8 103/ul Normal 4.0-11.0 [facility] Comment on above: Performed By: #### A 1C #### [facility] [address] [place] [address] Dr. Marta Ashford CBC W MANUAL DIFFon 08-17-19 22 ATYPICAL LYMPH # Normal [facility] Comment on above: Performed By: #### A 1C #### [facility] [address] [place] [address] Dr. Marta Ashford ATYPICAL LYMPH % Normal [facility] Comment on above: Performed By: #### A 1C #### [facility] [address] [place] [address] Dr. Marta Ashford BAND # Normal 0.0-0.3 [facility] Comment on above: Performed By: #### A 1C #### [facility] [address] [place] [address] Dr. Marta Ashford BAND % Normal 0-5 [facility] Comment on above: Performed By: #### A 1C #### [facility] [address] [place] [address] Dr. Marta Ashford BASOM # 0.00 103/ul Normal 0.00-0.10 [facility] Comment on above: Performed By: #### A 1C #### [facility] [address] [place] [address] Dr. Marta Ashford BASOM % 0.0 % Critically low 0.2-2.0 [facility] Comment on above: Performed By: #### A 1C #### [facility] [address] [place] [address] Dr. Marta Ashford BLAST # Normal [facility] Comment on above: Performed By: #### A 1C #### [facility] [address] [address] [address] Marta Ashford BLAST % Normal [facility] Comment on above: Performed By: #### A 1C #### [facility] [address] [place] [address] Dr. Marta Ashford CORRECTED WBC Normal 4.0-11.0 [facility] Comment on above: Performed By: #### A 1C #### [facility] [address] [place] [address] Dr. Marta Ashford EOS # 0.03 103/ul Normal 0.00-0.70 [facility] Comment on above: Performed By: #### A 1C #### [facility] [address] [place] [address] Dr. Marta Ashford EOS% 1.0 % Normal 0.9-7.0 [facility] Comment on above: Performed By: #### A 1C #### [facility] [address] [place] [address] Dr. Marta Ashford HCT 44.0 % Normal 42.0-54.0 [facility] Comment on above: Performed By: #### A 1C #### [facility] [address] [place] [address] Dr. Marta Ashford HGB 14.5 g/dl Normal 14.0-18.0 [facility] Comment on above: Performed By: #### A 1C #### [facility] [address] [place] [address] Dr. Marta Ashford LYMPHM # 0.90 103/ul Critically low 1.20-3.80 [facility] Comment on above: Performed By: #### A 1C #### [facility] [address] [place] [address] Dr. Marta Ashford LYMPHM% 32.0 % Normal 20.5-60.0 [facility] Comment on above: Performed By: #### A 1C #### [facility] [address] [place] [address] Dr. Marta Ashford MCH 31.2 pg Normal 25.9-34.0 [facility] Comment on above: Performed By: #### A 1C #### [facility] [address] [place] [address] Dr. aMrta Ashford MCHC 33.0 g/dl Normal 29.9-35.2 [facility] Comment on above: Performed By: #### A 1C #### [facility] [address] [place] [address] Dr. Marta Ashford MCV 94.6 fL Critically high 80.0-94.0 [facility] Comment on above: Performed By: #### A 1C #### [facility] [address] [place] [address] Dr. Marta Ashford METAMYELOCYTE # Normal [facility] Comment on above: Performed By: #### A 1C #### [facility] [address] [place] [address] Dr. Marta Ashford METAMYELOCYTE % Normal [facility] Comment on above: Performed By: #### A 1C #### [facility] [address] [place] [address] Dr. Marta Ashford MONOM# 0.06 103/ul Critically low 0.30-0.80 [facility] Comment on above: Performed By: #### A 1C #### [facility] [address] [place] [address] Dr. Marta Ashford MONOM% 2.0 % Normal 1.7-12.0 [facility] Comment on above: Performed By: #### A 1C #### [facility] [address] [place] [address] Dr. Marta Ashford MPV 10.8 fL Normal 9.5-13.5 [facility] Comment on above: Performed By: #### A 1C #### [facility] [address] [place] [address] Dr. Marta Ashford MYELOCYTE # Normal [facility] Comment on above: Performed By: #### A 1C #### [facility] [address] [place] [address] Dr. Marta Ashford MYELOCYTE % Normal [facility] Comment on above: Performed By: #### A 1C #### [facility] [address] [place] [address] Dr. Marta Ashford NRBC Normal [facility] Comment on above: Performed By: #### A 1C #### [facility] [address] [place] [address] Dr. Marta Ashford PLT 129 103/ul Critically low 150-450 [facility] Comment on above: Performed By: #### A 1C #### [facility] [address] [place] [address] Dr. Marta Ashford RBC 4.65 106/ul Critically low 4.70-6.10 [facility] Comment on above: Performed By: #### A 1C #### [facility] [address] [place] [address] Dr. Marta Ashford RDW 12.9 % Normal 11.0-15.0 [facility] Comment on above: Performed By: #### A 1C #### [facility] [address] [place] [address] Dr. Marta Ashford SEG # 1.82 103/ul Normal 1.40-6.50 [facility] Comment on above: Performed By: #### A 1C #### [facility] [address] [place] [address] Dr. Marta Ashford SEG % 65.0 % Normal 43.0-75.0 [facility] Comment on above: Performed By: #### A 1C #### [facility] [address] [place] [address] Dr. Marta Ashford WBC 2.8 103/ul Critically low 4.0-11.0 [facility] Comment on above: Performed By: #### A 1C #### [facility] [address] [place] [address] ABD/PELVIS WO CONon [...] ROVERTO GREENFIELD Date: 2021-08-16 05:21 Normal [facility] CULTURE BLOODon 08-16-2021 Microscopic examination of blood, culture Culture Observations: No growth at 5 days. Normal [facility] Comment on above: Performed By: #### B LDCX2 #### [facility] [address] [place] [address] [address] [address] Marta Ashford Microscopic examination of blood, culture Culture Observations: No growth at 5 days. Normal [facility] Comment on above: Performed By: #### A 1C #### [facility] [address] [place] [address] [address] Marta Ashford Covid-19 PCR ([facility])on SARS-CoV-2 (COVID-19) RNA NORMA+probe Ql (Unsp spec) Not detected Normal NOT DETECTED [facility] Comment on above: Result Comment: When diagnostic testing is negative, the possibility of a false negative should be considered in the context of a patient's recent exposures and the presence of clinical signs and symptoms consistent with SARS-CoV-2. This test is not yet approved or cleared by the [place] Food and Drug Administration (FDA). This test was developed by [employer], [place], [place]. The performance characteristics of this test were validated by [facility]. The results are not intended to be used as the sole means for clinical diagnosis or patient management decisions. [facility] is authorized under Clinical Laboratory Improvement Amendments [...] for this test is supported by the Conference Producer of Health and Human Service's declaration that [...] used). Performed By: #### A 1C #### [facility] [address] [place] [address] Dr. Marta Ashford DRUG SCREEN RAPID (URINE)on 08-16-2021 AMP Negative Normal NEGATIVE [facility] Comment on above: Performed By: #### P HVEN #### [facility] [address] [place] [address] Dr. Marta Ashford BAR Negative Normal NEGATIVE [facility] Comment on above: Performed By: #### P HVEN #### [facility] [address] [place] [address] Dr. Marta Ashford BUP Negative Normal NEGATIVE [facility] Comment on above: Performed By: #### P HVEN #### [facility] [address] [place] [address] Dr. Marta Ashford BZO Negative Normal NEGATIVE [facility] Comment on above: Performed By: #### P HVEN #### [facility] [address] [address] [address] Marta Ashford ROME Negative Normal NEGATIVE [facility] Comment on above: Performed By: #### P HVEN #### [facility] [address] [address] [address] Marta Ashford CUT-OFFS SEE BELOW Normal [facility] Comment on above: Result Comment: AMP (Amphetamine): 500ng/mL, BAR (Barbituates): 200 ng/mL, BZO (Benzodiazepines): 150 ng/mL, BUP (Buprenorphine): 10 ng/mL, ROME (Cocaine): 150 ng/mL, mAMP (Methamphetamine): 500 ng/mL, MTD (Methadone): 200 ng/mL, OPI (Opiates): 100 ng/mL, OXY (Oxycodone): 100 ng/mL, PCP (Phencyclidine): 25 ng/mL, PPX (Propoxyphene): 300 ng/mL, THC (Cannabinoids): 50 ng/mL, TCA (Trycyclic Antidepressants): 300 ng/mL Performed By: #### P HVEN #### [facility] [address] [place] [address] Dr. Marta Ashford DRUG CUT HEADER DRUG CLASS TEST SYSTEM CUT-OFF CONCENTRATIONS ARE FOLLOWS: Normal [facility] Comment on above: Performed By: #### P HVEN #### [facility] [address] [place] [address] Dr. Marta Ashford mAMP Negative Normal NEGATIVE [facility] Comment on above: Performed By: #### P HVEN #### [facility] [address] [address] [address] Marta Ashford MTD Negative Normal NEGATIVE [facility] Comment on above: Performed By: #### P HVEN #### [facility] [address] [place] [address] Dr. Marta Ashford OPI Negative Normal NEGATIVE [facility] Comment on above: Performed By: #### P HVEN #### [facility] [address] [place] [address] Dr. Marta Ashford OXY Negative Normal NEGATIVE [facility] Comment on above: Performed By: #### P HVEN #### [facility] [address] [place] [address] Dr. Marta Ashford PCP Negative Normal NEGATIVE [facility] Comment on above: Performed By: #### P HVEN #### [facility] [address] [place] [address] Dr. Marta Ashford PPX Negative Normal NEGATIVE [facility] Comment on above: Performed By: #### P HVEN #### [facility] [address] [place] [address] Dr. Marta Ashford TCA Negative Normal NEGATIVE [facility] Comment on above: Performed By: #### P HVEN #### [facility] [address] [place] [address] Dr. Marta Ashford THC Negative Normal NEGATIVE [facility] Comment on above: Performed By: #### P HVEN #### [facility] [address] [place] [address] Dr. Marta Ashford ER URINE PROFILEon 2 Bilirubin Ql (U) Negative Normal NEGATIVE [facility] Comment on above: Performed By: #### A 1C #### [facility] [address] [place] [address] Dr. Marta Ashford Clarity (U) SL CLOUDY Abnormal CLEAR [facility] Comment on above: Performed By: #### A 1C #### [facility] [address] [place] [address] Dr. Marta Ashford Color (U) YELLOW Normal YELLOW [facility] Comment on above: Performed By: #### A 1C #### [facility] [address] [place] [address] Dr. Marta Ashford ERUAHD A micrscopic examination will be performed if indicated. Normal [facility] Comment on above: Performed By: #### A 1C #### [facility] [address] [place] [address] Dr. Marta Ashford Glucose Ql (U) 1000 mg/dl Abnormal NEGATIVE [facility] Comment on above: Performed By: #### A 1C #### [facility] [address] [place] [address] Dr. Marta Ashford Hemoglobin Ql (U) SMALL Abnormal NEGATIVE [facility] Comment on above: Performed By: #### A 1C #### [facility] [address] [place] [address] Dr. Marta Ashford Ketones Ql (U) Negative Normal NEGATIVE [facility] Comment on above: Performed By: #### A 1C #### [facility] [address] [place] [address] Dr. Marta Ashford LEUKOCYTES SMALL Abnormal NEGATIVE [facility] Comment on above: Performed By: #### A 1C #### [facility] [address] [place] [address] Dr. Marta Ashford Nitrite Ql (U) Positive Abnormal NEGATIVE [facility] Comment on above: Performed By: #### A 1C #### [facility] [address] [place] [address] Dr. Marta Ashford pH (U) 5.5 [pH] Normal 5-9 [facility] Comment on above: Performed By: #### A 1C #### [facility] [address] [place] [address] Dr. Marta Ashford SPEC GRAVITY 1.020 Normal 1.005-<=1.02 5 [facility] Comment on above: Performed By: #### A 1C #### [facility] [address] [place] [address] Dr. Marta Ashford UA PROTEIN TRACE Normal NEGATIVE/ TRACE [facility] Comment on above: Performed By: #### A 1C #### [facility] [address] [place] [address] Dr. Marta Ashford UR MICRO IND INDICATED Normal [facility] Comment on above: Performed By: #### A 1C #### [facility] [address] [place] [address] Dr. Marta Ashford Urobilinogen Qn (U) 0.2 {Brad'U}/dL Normal 0.2 - 1. 0 [facility] Comment on above: Performed By: #### A 1C #### [facility] [address] [place] [address] Dr. Marta Ashford LACTATE/LACTIC ACIDon 2021 Lactate [Moles/Vol] 4.1 mmol/L Critically high 0.7-2.0 [facility] Comment on above: Result Comment: test repeated Performed By: #### L ACT #### [facility] [address] [address] [address] Marta Ashford Lactate [Moles/Vol] 4.1 mmol/L Critically high 0.7-2.0 [facility] Comment on above: Result Comment: test repeated Performed By: #### L ACT #### [facility] [address] [address] [address] Marta Ashford OCC BLD IMMUNOASSAYon 2021 OCCULT BLOOD Negative Normal NEGATIVE [facility] Comment on above: Performed By: #### A 1C #### [facility] [address] [place] [address] Dr. Marta Ashford PH VENOUS BLOODon 08-16-2021 PCO2 VENOUS 30.8 mmHg Critically low 40.0-52.0 [facility] Comment on above: Performed By: #### P HVEN #### [facility] [address] [place] [address] Dr. Marta Ashford pH VENOUS 7.400 Normal 7.330-7.430 [facility] Comment on above: Performed By: #### P HVEN #### [facility] [address] [place] [address] Dr. Marta Ashford POINT OF CARE GLUCOSEon Glucose [Mass/Vol] 214 mg/dL Critically high [facility] Comment on above: Performed By: #### C BCMAN #### [facility] [address] [place] [address] Dr. Marta Ashford Glucose [Mass/Vol] 275 mg/dL Critically high [address] [place] [address] Comment on above: Performed By: #### P HVEN #### [facility] [address] [place] [address] Dr. Marta Ashford Glucose [Mass/Vol] 366 mg/dL Critically high [facility] Comment on above: Performed By: #### A 1C #### [facility] [address] [address] [address] Marta Ashford Glucose [Mass/Vol] 168 mg/dL Critically high 74-106 [facility] Comment on above: Performed By: #### P OCGLUC #### [facility] [address] [address] [address] Mrata Ashford Glucose [Mass/Vol] 214 mg/dL Critically high 74-106 [facility] Comment on above: Performed By: #### A 1C #### [facility] [address] [address] [address] Marta Ashford PROF CHEM 8 (BAS METB)on Anion gap [Moles/Vol] 17.4 mmol/L Normal [facility] Comment on above: Performed By: #### P HVEN #### [facility] [address] [address] [address] Marta Ashford Calcium [Mass/Vol] 7.3 mg/dL Critically low 8.5-10.1 [facility] Comment on above: Performed By: #### P HVEN #### [facility] [address] [address] [address] Marta Ashford Chloride [Moles/Vol] 108 mmol/L Critically high 98-107 [facility] Comment on above: Performed By: #### P HVEN #### [facility] [address] [address] [address] Marta Ashford CO2 [Moles/Vol] 20.7 mmol/L Critically low 22.0-30.0 [facility] Comment on above: Performed By: #### P HVEN #### [facility] [address] [address] [address] Marta Ashford Creatinine [Mass/Vol] 1.32 mg/dL Critically high 0.66-1.25 [facility] Comment on above: Performed By: #### P HVEN #### [facility] [address] [address] [address] Marta [place] EGFR-AF GRENADIAN >60 Normal >=60 [facility] Comment on above: Performed By: #### P HVEN #### [facility] [address] [address] [address] Marta [place] EGFR-NON AF GRENADIAN 56 mL/min/1.73m2 Critically low >=60 [facility] Comment on above: Performed By: #### P HVEN #### [facility] [address] [address] [address] Marta [place] Glucose [Mass/Vol] 189 mg/dL Critically high 74-106 [facility] Comment on above: Performed By: #### P HVEN #### [facility] [address] [address] [address] Marta [place] Potassium [Moles/Vol] 3.1 mmol/L Critically low 3.4-5.0 [facility] Comment on above: Performed By: #### P HVEN #### [facility] [address] [address] [address] Marta [place] Sodium [Moles/Vol] 143 mmol/L Normal 137-145 [facility] Comment on above: Performed By: #### P HVEN #### [facility] [address] [address] [address] Marta [place] Urea nitrogen [Mass/Vol] 25.0 mg/dL Critically high 7.0-18.0 [facility] Comment on above: Performed By: #### P HVEN #### [facility] [address] [address] [address] Marta Ash[place] Urea nitrogen/Creatinine [Mass ratio] 18.9 mg/mg Normal [facility] Comment on above: Performed By: #### P HVEN #### [facility] [address] [address] [address] Marta [place] Anion gap [Moles/Vol] 17.1 mmol/L Normal [facility] Comment on above: Performed By: #### C BCMAN #### [facility] [address] [address] [address] Marta Ashford Calcium [Mass/Vol] 8.2 mg/dL Critically low 8.5-10.1 [facility] Comment on above: Performed By: #### C BCVALERY #### [facility] [address] [address] [address] Marta [place] Chloride [Moles/Vol] 104 mmol/L Normal 98-107 [facility] Comment on above: Performed By: #### C BCVALERY #### [facility] [address] [address] [address] Marta [place] CO2 [Moles/Vol] 23.4 mmol/L Normal 22.0-30.0 [facility] Comment on above: Performed By: #### C BCVALERY #### [facility] [address] [address] [address] Marta [place] Creatinine [Mass/Vol] 1.17 mg/dL Normal 0.66-1.25 [facility] Comment on above: Performed By: #### C JIMENA #### [facility] [address] [address] [address] Marta [place] EGFR-AF GRENADIAN >60 Normal >=60 [facility] Comment on above: Performed By: #### C JIMENA #### [facility] [address] [address] [address] Marta [place] EGFR-NON AF GRENADIAN >60 Normal >=60 [facility] Comment on above: Performed By: #### C BCVALERY #### [facility] [address] [address] [address] Marta [place] Glucose [Mass/Vol] 215 mg/dL Critically high 74-106 [facility] Comment on above: Performed By: #### C BCVALERY #### [facility] [address] [address] [address] Marta [place] Potassium [Moles/Vol] 3.5 mmol/L Normal 3.4-5.0 [facility] Comment on above: Performed By: #### C BCVALERY #### [facility] [address] [address] [address] Marta [place] Sodium [Moles/Vol] 141 mmol/L Normal 137-145 [facility] Comment on above: Performed By: #### C BCVALERY #### [facility] [address] [place] [address] Dr. Marta [place] Urea nitrogen [Mass/Vol] 23.0 mg/dL Critically high 7.0-18.0 [facility] Comment on above: Performed By: #### C JIMENA #### [facility] [address] [place] [address] Dr. Marta [place] Urea nitrogen/Creatinine [Mass ratio] 19.7 mg/mg Normal [facility] Comment on above: Performed By: #### C JIMENA #### [facility] [address] [place] [address] Dr. Marta [place] URINE MICROSCOPIC ONLYon BACTERIA MODERATE Abnormal NONE SEEN [facility] Comment on above: Performed By: #### A 1C #### [facility] [address] [place] [address] Dr. Marta [place] Bacteria identified Cx Nom (U) INDICATED Normal [facility] Comment on above: Performed By: #### A 1C #### [facility] [address] [place] [address] Dr. Marta [place] CAST NONE SEEN Normal NONE SEEN [facility] Comment on above: Performed By: #### A 1C #### [facility] [address] [place] [address] Dr. Marta [place] Crystals LM Nom (Urine sed) NONE SEEN Normal NONE SEEN [facility] Comment on above: Performed By: #### A 1C #### [facility] [address] [place] [address] Dr. Marta [place] Epithelial cells LM Ql (Urine sed) NONE SEEN Normal NONE SEEN /RARE [facility] Comment on above: Performed By: #### A 1C #### [facility] [address] [place] [address] Dr. Marta Ash[place] MUCOUS NONE SEEN Normal NONE SEEN [facility] Comment on above: Performed By: #### A 1C #### [facility] [address] [place] [address] Dr. Marta Ashford RBC 0-2 Normal 0-2 [facility] Comment on above: Performed By: #### A 1C #### [facility] [address] [place], [place] [address] Dr. Marta Ashford WBC 10-20 Abnormal NONE SEEN [facility] Comment on above: Performed By: #### A 1C #### [facility] [address] [place], [place] [address] Dr. Marta Ashford XR CHEST 2 Von [...] KIZZY SINHA Date: 2021-08-16 03:11 Normal [facility] Glucose Poct Glucometerson 0 01-28-2021 Commemt1 Glu2: Cleaned Meter Normal [facility] Comment on above: Result Comment: PERF ORMED BY: [facility] [address] [place] [address] PATHOLOGIST EAP SPECIALIST PER TEIXEIRA M.D. Performed By: #### G DANIELLE #### Point of Care testing , Glucose [Mass/Vol] 259 mg/dL Normal [facility] Comment on above: Result Comment: [facility] Glucose Reference Range is dependent on time and content of last meal. Glucose of more than 200 mg/dL in a nonstressed, ambulatory subject supports the diagnosis of Diabetes Mellitus. Performed By: #### G DANIELLE #### Point of Care testing , Franco 01-28-2021 L - -------- Specimen: [id number] Received: 01/28/21 Status: MORENO Spencer Num: [id number] Spec Type: Surgical Subm Dr: Oskar Johnson MD Tissues: A Duodenum - Biopsy (DUODENAL BX) B Esophagus Biopsy (ESOPHAGUS BX) C Colon Biopsy (COLON BX) Procedures: HE Stain/6, Gross/Micro L4/3 -------- Patient Age/Sex Location Account Attending Physician -------- David Guardado/[facility] [id number] Oskar Johnson MD -------- SPEC NUM: [id number] RECD: 01/28/21 STATUS: MORENO MANJEET NUM: [id number] PARVIN: 01/28/21- DR: Oskar Johnson MD ENTERED: 01/28/21-[address]: SPEC TYPE: Surgical DEPT: S ENTERED BY: [id number] RECV BY: [id number] ORDERED: HE Stain/6, Gross/Micro L4/3 ORDERED: HE [...] one cassette labeled A1. (MATILDA/FELICITAS) -------- Specimen: [id number] Received: 01/28/21 Status: MORENO Spencer Num: [id number] Spec Type: Surgical Subm Dr: Oskar Johnson MD Tissues: A Duodenum - Biopsy (DUODENAL BX) B Esophagus Biopsy (ESOPHAGUS BX) C Colon Biopsy (COLON BX) Procedures: HE Stain/6, Gross/Micro L4/3 -------- Patient: David Guardado [id number] (Continued) -------- Specimen: [id number] Received: 01/28/21 (Continued) Gross Description (Continued) Signed (signature on file) Per Teixeira MD 01/29/21 1813 -------- Specimen: [id number] Received: 01/28/21 Status: MORENO Spencer Num: [id number] Spec Type: Surgical Subm Dr: Oskar Johnson MD Tissues: A Duodenum - Biopsy (DUODENAL BX) B Esophagus Biopsy (ESOPHAGUS BX) C Colon Biopsy (COLON BX) Procedures: HE Stain/6, Gross/Micro L4/3 -------- Patient: David Guardado [id number] (Continued) -------- Specimen: [id number] Received: 01/28/21 (Continued) Gross Description (Continued) B. Received in formalin labeled with the patient's name, number and esophagus biopsy erosions is a 0.3 cm pink tissue fragment. Entirely submitted in one cassette labeled B1. (SM/FELICITAS) C. Received in formalin labeled with the patient's name, number and surveillance colon biopsy rule out microscopic colitis are 3 miller tissue fragments, 0.1 cm to 0.3 cm. Entirely submitted in one cassette labeled C1. (MATILDA/FELICITAS) Microscopic Description A. Two glass slides with H E stained material have been examined. The microscopic findings support the above pathologic diagnosis. B. Two glass slides with H E stained material have been examined. The microscopic findings support the above pathologic diagnosis. C. Two glass slides with H E stained material have been examined. The microscopic findings support the above pathologic diagnosis. [id number] -------- -------- Specimen: [id number] Received: 01/28/21 Status: MORENO Spencer Num: [id number] Spec Type: Surgical Subm Dr: Oskar Johnson MD Tissues: A Duodenum - Biopsy (DUODENAL BX) B Esophagus Biopsy (ESOPHAGUS BX) C Colon Biopsy (COLON BX) Procedures: HE Stain/6, Gross/Micro L4/3 -------- Patient: David Guardado [id number] (Continued) --- (more content not included)... Normal [facility] Ammoniaon 01-24-2021 Ammonia (P) [Moles/Vol] 30 umol/L Normal 11-35 [facility] Comment on above: Order Comment: Reaso n for Exam Fatty liver;Right sided abdominal pain Result Comment: PERF ORMED BY: [place] [address] PATHOLOGIST EAP SPECIALIST PER TEIXEIRA M.D. Performed By: #### P T, AMM, CBC, CMP, HEPATIC #### [address] [id number] [facility] COVID-19 FRMCon 01-24-2021 SARS-CoV-2 (COVID-19) RNA NORMA+probe Ql (Unsp spec) Negative Normal Negative [facility] Comment on above: Order Comment: Healt hcare Worker?: N Result Comment: Testing for SARS-CoV-2 by RT-PCR This test was developed and its performance characteristics determined by [employer] and validated at the [facility]. This test has not been FDA [...] is terminated or revoked sooner. PERFORMED BY: [place] [address] PATHOLOGIST EAP SPECIALIST JIANLAN SUN M.D. Performed By: #### C OVID 19 [facility] [place] #### [address] Complete Blood Count Auto Di ffon 01-24-2021 Basophils (Bld) [#/Vol] 0.1 10*3/uL Normal 0.0-0.2 [facility] Comment on above: Order Comment: Reaso n for Exam Fatty liver;Right sided abdominal pain Result Comment: PERF ORMED BY: [place] [address] PATHOLOGIST EAP SPECIALIST PER TEIXEIRA M.D. Performed By: #### P T, AMM, CBC, CMP, HEPATIC #### [address] Basophils/100 WBC (Bld) 0.8 % Normal . [facility] Comment on above: Order Comment: Reaso n for Exam Fatty liver;Right sided abdominal pain Performed By: #### P T, AMM, CBC, CMP, HEPATIC #### [address] Eosinophils (Bld) [#/Vol] 0.2 10*3/uL Normal 0.0-0.45 [facility] Comment on above: Order Comment: Reaso n for Exam Fatty liver;Right sided abdominal pain Performed By: #### P T, AMM, CBC, CMP, HEPATIC #### [address] Eosinophils/100 WBC (Bld) 1.7 % Normal . [facility] Comment on above: Order Comment: Reaso n for Exam Fatty liver;Right sided abdominal pain Performed By: #### P T, AMM, CBC, CMP, HEPATIC #### [address] Erythrocyte distribution width (RBC) [Ratio] 13.3 % Normal 12.0-14.8 [facility] Comment on above: Order Comment: Reaso n for Exam Fatty liver;Right sided abdominal pain Performed By: #### P T, AMM, CBC, CMP, HEPATIC #### [address] Hematocrit (Bld) [Volume fraction] 40.9 % Normal 38.8-50.0 [facility] Comment on above: Order Comment: Reaso n for Exam Fatty liver;Right sided abdominal pain Performed By: #### P T, AMM, CBC, CMP, HEPATIC #### [address] Hemoglobin (Bld) [Mass/Vol] 14.3 g/dL Normal 13.0-17.0 [facility] Comment on above: Order Comment: Reaso n for Exam Fatty liver;Right sided abdominal pain Performed By: #### P T, AMM, CBC, CMP, HEPATIC #### [address] Lymphocytes (Bld) [#/Vol] 3.7 10*3/uL Normal 1.00-4.8 [facility] Comment on above: Order Comment: Reaso n for Exam Fatty liver;Right sided abdominal pain Performed By: #### P T, AMM, CBC, CMP, HEPATIC #### [address] Lymphocytes/100 WBC (Bld) 37.8 % Normal . [facility] Comment on above: Order Comment: Reaso n for Exam Fatty liver;Right sided abdominal pain Performed By: #### P T, AMM, CBC, CMP, HEPATIC #### [address] MCH (RBC) [Entitic mass] 32.6 pg Normal 27.5-35.2 [facility] Comment on above: Order Comment: Reaso n for Exam Fatty liver;Right sided abdominal pain Performed By: #### P T, AMM, CBC, CMP, HEPATIC #### [address] MCV (RBC) [Entitic vol] 93.2 fL Normal 83.5-101 [facility] Comment on above: Order Comment: Reaso n for Exam Fatty liver;Right sided abdominal pain Performed By: #### P T, AMM, CBC, CMP, HEPATIC #### [id number] [place] Mean Corpuscular HGB Conc 35.0 g/dL Normal 32.5-35.6 [facility] Comment on above: Order Comment: Reaso n for Exam Fatty liver;Right sided abdominal pain Performed By: #### P T, AMM, CBC, CMP, HEPATIC #### [facility] [address] [place] [address] Monocytes (Bld) [#/Vol] 0.8 10*3/uL Normal 0.0-0.8 [facility] Comment on above: Order Comment: Reaso n for Exam Fatty liver;Right sided abdominal pain Performed By: #### P T, AMM, CBC, CMP, HEPATIC #### [place] [address] [place] Monocytes/100 WBC (Bld) 7.9 % Normal . [facility] Comment on above: Order Comment: Reaso n for Exam Fatty liver;Right sided abdominal pain Performed By: #### P T, AMM, CBC, CMP, HEPATIC #### [place] [address] [place] Neutrophils (Bld) [#/Vol] 5.0 10*3/uL Normal 1.8-7.7 [facility] Comment on above: Order Comment: Reaso n for Exam Fatty liver;Right sided abdominal pain Performed By: #### P T, AMM, CBC, CMP, HEPATIC #### [place] [address] [place] Neutrophils/100 WBC (Bld) 51.8 % Normal . [facility] Comment on above: Order Comment: Reaso n for Exam Fatty liver;Right sided abdominal pain Performed By: #### P T, AMM, CBC, CMP, HEPATIC #### [place] [address] [place] Nucleated RBC/100 WBC (Bld) [Ratio] 0.1 % Normal 0-0.5 [facility] Comment on above: Order Comment: Reaso n for Exam Fatty liver;Right sided abdominal pain Performed By: #### P T, AMM, CBC, CMP, HEPATIC #### [address] [place] [address] [place] Platelet mean volume (Bld) [Entitic vol] 10.0 fL Normal 6.6-10.1 [facility] Comment on above: Order Comment: Reaso n for Exam Fatty liver;Right sided abdominal pain Performed By: #### P T, AMM, CBC, CMP, HEPATIC #### [facility] [address] [place] [address] Platelets (Bld) [#/Vol] 147 10*3/uL Low 150-450 [facility] Comment on above: Order Comment: Reaso n for Exam Fatty liver;Right sided abdominal pain Performed By: #### P T, AMM, CBC, CMP, HEPATIC #### [facility] [address] [place] [address] RBC (Bld) [#/Vol] 4.39 10*6/uL Normal 3.90-5.60 [facility] Comment on above: Order Comment: Reaso n for Exam Fatty liver;Right sided abdominal pain Performed By: #### P T, AMM, CBC, CMP, HEPATIC #### [facility] [address] [place] [address] WBC (Bld) [#/Vol] 9.7 10*3/uL Normal 4.5-11.0 [facility] Comment on above: Order Comment: Reaso n for Exam Fatty liver;Right sided abdominal pain Performed By: #### P T, AMM, CBC, CMP, HEPATIC #### [facility] [address] [place] [address] Comprehensive Metabolic Pane franco 01-24-2021 Albumin [Mass/Vol] 3.7 g/dL Normal 3.2-5.5 [facility] Comment on above: Order Comment: Reaso n for Exam Fatty liver;Right sided abdominal pain Performed By: #### P T, AMM, CBC, CMP, HEPATIC #### [facility] [address] [place] [address] Albumin/Globulin [Mass ratio] 1.2 {ratio} Normal [facility] Comment on above: Order Comment: Reaso n for Exam Fatty liver;Right sided abdominal pain Performed By: #### P T, AMM, CBC, CMP, HEPATIC #### [facility] [address] [place] [address] ALP [Catalytic activity/Vol] 54 U/L Normal 32-92 [facility] Comment on above: Order Comment: Reaso n for Exam Fatty liver;Right sided abdominal pain Performed By: #### P T, AMM, CBC, CMP, HEPATIC #### [facility] [address] [place] [address] ALT [Catalytic activity/Vol] 41 U/L Normal 10-60 [facility] Comment on above: Order Comment: Reaso n for Exam Fatty liver;Right sided abdominal pain Performed By: #### P T, AMM, CBC, CMP, HEPATIC #### [facility] [address] [place] [address] AST [Catalytic activity/Vol] 30 U/L Normal 10-42 [facility] Comment on above: Order Comment: Reaso n for Exam Fatty liver;Right sided abdominal pain Performed By: #### P T, AMM, CBC, CMP, HEPATIC #### [facility] [address] [place] [address] Bilirubin [Mass/Vol] 0.5 mg/dL Normal 0.3-1.2 [facility] Comment on above: Order Comment: Reaso n for Exam Fatty liver;Right sided abdominal pain Performed By: #### P T, AMM, CBC, CMP, HEPATIC #### [facility] [address] [place] [address] [place] Calcium [Mass/Vol] 9.4 mg/dL Normal 8.2-10.2 [facility] Comment on above: Order Comment: Reaso n for Exam Fatty liver;Right sided abdominal pain Performed By: #### P T, AMM, CBC, CMP, HEPATIC #### [facility] [address] [place] [address] [place] Chloride [Moles/Vol] 102 mmol/L Normal 95-114 [facility] Comment on above: Order Comment: Reaso n for Exam Fatty liver;Right sided abdominal pain Performed By: #### P T, AMM, CBC, CMP, HEPATIC #### [address] [place] [address] [place] CO2 [Moles/Vol] 25.0 mmol/L Normal 22.0-30.0 [facility] Comment on above: Order Comment: Reaso n for Exam Fatty liver;Right sided abdominal pain Performed By: #### P T, AMM, CBC, CMP, HEPATIC #### [facility] [address] Creatinine [Mass/Vol] 0.86 mg/dL Normal 0.64-1.27 [facility] Comment on above: Order Comment: Reaso n for Exam Fatty liver;Right sided abdominal pain Performed By: #### P T, AMM, CBC, CMP, HEPATIC #### [facility] [address] Estimated GFR ( Lillie > 60 [facility] Comment on above: Order Comment: Reaso n for Exam Fatty liver;Right sided abdominal pain Result Comment: GFR estimated reference range: According to KDOQI guidelines, <60 ml/min/1.73m2 is sufficient to diagnose a patient with chronic kidney disease. Performed By: #### P T, AMM, CBC, CMP, HEPATIC #### [facility] [address] Estimated GFR (Non- Am > 60 [facility] Comment on above: Order Comment: Reaso n for Exam Fatty liver;Right sided abdominal pain Performed By: #### P T, AMM, CBC, CMP, HEPATIC #### [facility] [address] Globulin (S) [Mass/Vol] 3.0 g/dL [facility] Comment on above: Order Comment: Reaso n for Exam Fatty liver;Right sided abdominal pain Performed By: #### P T, AMM, CBC, CMP, HEPATIC #### [facility] [address] Glucose [Mass/Vol] 223 mg/dL High 70-100 [facility] Comment on above: Order Comment: Reaso n for Exam Fatty liver;Right sided abdominal pain Result Comment: [place] [facility] Glucose Reference Range is dependent on time and content of last meal. Glucose of more than 200 mg/dL in a nonstressed, ambulatory subject supports the diagnosis of Diabetes Mellitus. ADA recommended reference range Performed By: #### P T, AMM, CBC, CMP, HEPATIC #### [address] Potassium [Moles/Vol] 4.5 mmol/L Normal 3.5-5.1 [facility] Comment on above: Order Comment: Reaso n for Exam Fatty liver;Right sided abdominal pain Performed By: #### P T, AMM, CBC, CMP, HEPATIC #### [address] Protein [Mass/Vol] 6.7 g/dL Normal 6.1-7.9 [facility] Comment on above: Order Comment: Reaso n for Exam Fatty liver;Right sided abdominal pain Performed By: #### P T, AMM, CBC, CMP, HEPATIC #### [address] Sodium [Moles/Vol] 139 mmol/L Normal 136-146 [facility] Comment on above: Order Comment: Reaso n for Exam Fatty liver;Right sided abdominal pain Performed By: #### P T, AMM, CBC, CMP, HEPATIC #### [address] Urea nitrogen [Mass/Vol] 14 mg/dL Normal 9-23 [facility] Comment on above: Order Comment: Reaso n for Exam Fatty liver;Right sided abdominal pain Performed By: #### P T, AMM, CBC, CMP, HEPATIC #### [address] Hepatic Panelon 01-24-2021 Bilirubin,Indirect Not performed Normal [facility] Comment on above: Order Comment: Reaso n for Exam Fatty liver;Right sided abdominal pain Result Comment: PERF ORMED BY: [place] [address] PATHOLOGIST EAP SPECIALIST PER TEIXEIRA M.D. Performed By: #### P T, AMM, CBC, CMP, HEPATIC #### [facility] [address] Bilirubin.indirect [Mass/Vol] mg/dL Normal 0.0-0.4 [facility] Comment on above: Order Comment: Reaso n for Exam Fatty liver;Right sided abdominal pain Performed By: #### P T, AMM, CBC, CMP, HEPATIC #### [facility] [address] Prothrombin Time INRon 01-24 INR Coag (PPP) [Relative time] 1.0 {INR} Normal [facility] Comment on above: Order Comment: Reaso [...] heart valves: 3 - 4.5 PERFORMED BY: [place] [address] PATHOLOGIST EAP SPECIALIST PER TEIXEIRA M.D. Performed By: #### P T, AMM, CBC, CMP, HEPATIC #### [address] PT Coag (PPP) [Time] 11.7 s Normal 9.0-12.9 [facility] Comment on above: Order Comment: Reaso n for Exam Fatty liver;Right sided abdominal pain Performed By: #### P T, AMM, CBC, CMP, HEPATIC #### [place] [id number] [facility] Vital Signs Date Time Vital Sign Value Performing Clinician Facility 06-11-2021 16:00-0500 Body height 162.56 cm Girma Tan Other [facility] Other 06-11-2021 16:00-0500 Body mass index (BMI) [Ratio] 39.75 kg/m2 Girma Tan Other [facility] Other 06-11-2021 16:00-0500 Body weight 105.05 kg Girma Tan Other [facility] Other 06-11-2021 16:00-0500 Diastolic blood pressure 89 mm[Hg] Girma Tejedadiff Other [facility] Other 06-11-2021 16:00-0500 Respiratory rate 18 /min Girma Tejedadiff Other [facility] Other 06-11-2021 16:00-0500 SaO2% (BldA) [Mass fraction] 99 % Girma Tejedadiff Other [facility] Other 06-11-2021 16:00-0500 Systolic blood pressure 158 mm[Hg] Girma Tejedadiff Other [facility] Other 03-07-2021 15:30-0400 Body height 162.56 cm Oskar Johnson Other [facility] Other 03-07-2021 15:30-0400 Body mass index (BMI) [Ratio] 39.48 kg/m2 Oskar Johnson Other [facility] Other 03-07-2021 15:30-0400 Body weight 104.33 kg Oskar Johnson Other [facility] Other Encounters Encounter Date Encounter Type Care Provider Facility Start: 01-22-2024 End: 01-22-2024 ambulatory RENETTA NADERER Not Available Start: 12-11-2023 End: 12-11-2023 ambulatory RENETTA NADERER Not Available Start: 07-01-2023 End: 07-01-2023 ambulatory RENETTA NADERER Not Available Start: 08-01-2022 End: 08-02-[address] RENETTA ARELLANO Facility:[facility] Start: 03-13-2022 End: 03-14-[address] RENETTA ARELLANO Facility:[facility] Start: 09-12-2021 Encounter for genera l adult medical examination without abnormal findings DR RENETTA ARELLANO [facility] Start: 09-10-2021 End: 09-11-[address] RENETTA ARELLANO Facility:[facility] Start: 09-10-2021 End: 09-11-2021 Encounter for general adult medical examination without abnormal findings DR RENETTA ARELLANO Facility:[facility] Start: 08-16-2021 End: 08-18-2021 Evaluation and management of inpatient DR ANNA THACKER Facility:[facility] Start: 07-02-2021 End: 07-02-2021 ambulatory Girma Tan Other [facility] Other Start: 07-02-2021 Telephone encounter [facility] Start: 06-24-2021 End: 06-24-2021 ambulatory Girma Tan Other [facility] Other Start: 06-24-2021 Telephone encounter Girma Chang [facility] [employer] Start: 06-11-2021 End: 06-11-2021 ambulatory Girma Tan Other [facility] Other Start: 06-11-2021 Nutrition therapy Girma Garcia [facility] Start: 03-18-2021 End: 03-18-2021 ambulatory Stacie Muro Other [facility] Other Start: 03-18-2021 Telephone encounter Stacie Garcia [facility] Start: 03-07-2021 Office outpatient visit 25 minutes Oskar OROSCO [facility] Procedures Date Procedure Procedure Detail Performing Clinician Start: 09-10-[address] RENETTA MCINTOSH Comment on above: Performed By: #### [facility] #### [facility] [address] [address] [address] Marta Ashford Payers Date Payer Category Payer Unknown [id number] 2.16.84 [id number] 1960 Unknown [id number] 2.16.84 [id number] 1960 Unknown [id number] 2.16.84 [id number] 1960 Unknown [id number] 2.16.84 [id number] 1960 Unknown [id number] 2.16.84 [id number] 1960 Unknown [id number] 2.16.84 [id number] 1960 Unknown [id number] 2.16.84 [id number] 1959 Unknown [id number] 2.16.8 [id number] Social History Date Type Detail Facility Sex Assigned At [facility] Other Evaluation note 06-11-2021 Note Date & [...] Jun, Metabolic syndrome X (ICD-10 - E88.81) [facility] Other Evaluation note 03-07-2021 Note Date & [...] LOSS WILL SEND REFERRAL TO DR. NICE [facility] Other Evaluation note Note Date & Type Note Facility Evaluation note No Information [facility] Other History general Narrative - Reported Note Date & Type Note Facility History general Narrative - Reported Type Medical History Arthritis Medical History SHANNON Medical History type II diabetes [facility] Other Reason for Referral Reason FORM -EVAL AND TREAT Diagnosis 1 Fatty liver (K76.0) Referral Organization [facility] Referring Provider First Name Oskar Referring Provider Last Name Elizabeth Referring Provider Specialty Gastroenter ology Referred Organization [facility] Referred Provider Girma Tan Jr. Referred Address [facility] Jerardo Morgan,[facility],[place], [place],[address] Referred Provider Specialty Internal Med icine Referral Priority Routine General Notes Leann Manjarrez 021 02:55:03 PM > WILL SEND FORM ONCE Deana Hogan 03/07/2021 03:03:35 PM >NOTED Summary Purpose Family [...] section and content) DATE CREATED AUTHOR 12/10/2021 [facility] DATE CREATED AUTHOR AUTHOR'S ORGANMIGUELITO ATION 08/04/2022 [facility] DATE CREATED AUTHOR AUTHOR'S ORGANIZ ATION 01/24/2024 [facility] EPIC FOR RECORDS PERTAINING TO PATIENTS WHO ARE [...] BE BASED ON THE PRIMARY CLINICAL RECORDS. [employer] provides no warranty or guarantee of the accuracy or completeness of information in this document.
--- NOTE | 2024-02-05 07:20 | US_ITS ---
The [address] [address] Patient Name: DAVID GUARDADO MRN: [id number] date: 1960 Sex: M Assigned Patient Location: US Current Patient Location: US Accession/Order Number: [id number] Exam Date: 02/05/2024 07:21 Report Date: 02/05/2024 08:10 At the request of: RENETTA ARELLANO Procedure: US right upper quadrant EXAMINATION: US right upper quadrant HISTORY: Right Upper Quadrant Abdominal Pain COMPARISON: No relevant comparison available. TECHNIQUE: Transabdominal evaluation of the right upper quadrant. FINDINGS: LIVER: Mild fatty infiltration.. Color Doppler demonstrates patent hepatic veins. PORTAL VEIN: Duplex Doppler demonstrates normal hepatopetal flow pattern with flow velocity averaging 34 cm/s. GALLBLADDER: No visible gallstones, wall thickening, or pericholecystic free fluid. Negative sonographic Coley's sign. BILIARY: Dilated common bile duct, 10 mm. No appreciable stones or mass. PANCREAS: No visible mass, abnormal atrophy, or duct dilation. KIDNEY: No hydronephrosis. No visible mass or stones. Size: 10.8 x 6.7 x 6.2 cm US/US right upper quadrant IMPRESSION: 1. Nonspecific abnormal dilation of the common bile duct. No appreciable stones, mass, or inflammatory changes. 2. Unremarkable gallbladder. 3. Consider nuclear medicine HIDA scan to document patent duct and normal gallbladder emptying. Electronically authenticated by: ASHLEY VIVAR Date: 02/05/2024 08:10
== END 2024-02-05 07:16 | disposition home or self-care (01) ==
LOC: US 07:15
PROVIDERS: PCP Family Medicine; Visit Provider Family Medicine
DX: R10.11 Right upper quadrant pain (principal)
CPT/HCPCS: 76705

== ENCOUNTER 2024-02-25 07:49 | Outpatient (OUT) | payer OTHER, SELFPAY ==
--- OUTSIDE RECORDS SUMMARY | 2024-02-25 07:53 | XMS_ITS | CCD ---
Author Organization [facility]iniSyn[facility] Care Team Providers Care Quarter Inspector Name Role Phone Oskar Johnson Unavailable Stacie Muro Unavailable DominickGirma laura Unavailable ADAN, DR MARKOS Cobb Admitting Unavailable NADERER, DR MARKOS Cobb Attending Unavailable NADERER, DR MARKOS Cobb Primary Care Unavailable NADERER, DR MARKOS Cobb Consulting Unavailable NADERER, DR MARKOS Cobb Admitting Unavailable NADERER, DR MARKOS Cobb Attending Unavailable NADERER, DR MARKOS Cobb Primary Care Unavailable NADERER, DR MARKOS Cobb Consulting Unavailable NADERER, DR MARKOS Cobb Admitting Unavailable NADERER, DR MARKOS Cobb Attending Unavailable NADERER, DR MARKOS Cobb Primary Care Unavailable NADERER, DR MARKOS Cobb Consulting Unavailable [place], DR CASTILLO Primary Care Unavailable YOLI ., DR CASTILLO Consulting Unavailable NADERER, DR MARKOS Cobb Admitting Unavailable NADERER, DR MARKOS Cobb Attending Unavailable NADERER, DR MARKOS Cobb Consulting Unavailable STEPHANIE, MISBAH Consulting Unavailable LAITH, SHAIKH Isaac Consulting Unavailable KIZZY SINHA Consulting Unavailable ROVERTO [place]EN[place] Consulting Unavailable NADERER, MARKOS Attending Unavailable NADERER, MARKOS Attending Unavailable NADERER, MARKOS Attending Unavailable NADERER, MARKOS Attending Unavailable Naderer Markos GAMINO Primary Care Provider Medications Current Medications Medication Drug Class(es) Dates Sig (Normalized) Sig (Original) Ascorbic Acid (5 sources) Vitamin C Vitamin C Active glimepiride 4 mg oral tablet (8 sources) Sulfonylurea Start: 12-11-2023 take 1 tablet by mouth in the morning glimepiride (Amaryl) 4 MG tablet Indications: Type 2 diabetes mellitus with hyperglycemia, without long-term current use of insulin ([facility]) Take 1 tablet (4 mg) by mouth in the morning and 1 tablet (4 mg) before bedtime. 180 tablet 3 12/11/2023 Active take 1 tablet by jayda th every twelve hours Glimepiride 4 MG 1 tablet with breakfast or the first main meal of the day Orally BID Active Insulin Glargine / Lixisenatide (5 sources) Insulin Analog inject 15 [IU] by subcutaneous injection once daily Soliqua 100/33 15 Units Subcutaneous Daily Active lisinopril 40 mg oral tablet (8 sources) Angiotensin Converting Enzyme Inhibitor take 1 tablet by mouth in the morning lisinopril 40 MG tablet Take 40 mg by mouth in the morning. Active take 1 tablet by jayda th every twenty-four hours Lisinopril 20 MG 1 tablet Orally Once a day Active metFORMIN hydrochloride 1000 mg oral tablet (8 sources) Biguanide Start: 12-11-2023 take 1 tablet by mouth in the morning metFORMIN (Glucophage) 1000 MG tablet Indications: Type 2 diabetes mellitus with hyperglycemia, without long-term current use of insulin (CMS/HCC) Take 1 tablet (1,000 mg) by mouth in the morning and 1 tablet (1,000 mg) in the evening. Take with meals. 180 tablet 3 12/11/2023 Active take 1 tablet by jayda th every twelve hours metFORMIN HCl 1000 MG 1 tablet with a me al Orally BID Active nabumetone 500 mg oral tablet (3 sources) Nonsteroidal Anti-inflammatory Drug Start: 01-22-2024 take 1 tablet by mouth twice daily as needed for pain nabumetone (Relafen) 500 MG tablet Indications: Acute right-sided low back pain without sciatica Take 1 tablet (500 mg) by mouth 2 (two) times a day as needed for moderate pain 60 tablet 3 01/22/2024 Active omeprazole 40 mg delayed release oral capsule (3 sources) Proton Pump Inhibitor Start: 07-01-2023 take 1 capsule by mouth before mealtime omeprazole (PriLOSEC) [address] capsule Indications: Gastroesophageal reflux disease without esophagitis Take 1 capsule (40 mg) by mouth in the morning. Take before meals. Do not crush or chew.. 90 capsule 3 07/01/2023 Active Semaglutide, 2 MG/DOSE, (Ozempic, 2 MG/DOSE,) 8 MG/3ML solution pen-injector (3 sources) Start: 01-20-2024 inject 2 mg by subcutaneous injection every week Semaglutide, 2 MG/DOSE, (Ozempic, 2 MG/DOSE,) 8 MG/3ML solution pen-injector Indications: Type 2 diabetes mellitus with hyperglycemia, without long-term current use of insulin ([facility]) Inject 2 mg under the skin 1 (one) time per week 3 mL 5 01/20/2024 Active sildenafil 100 mg oral tablet (3 sources) Phosphodiesterase 5 Inhibitor take 1 tablet by mouth every twenty-four hours as needed sildenafil (Viagra) 100 MG tablet Take 100 mg by mouth Daily as needed for erectile dysfunction Active tamsulosin hydrochloride 0.4 mg oral capsule (2 sources) alpha-Adrenergic Shannan take 1 capsule by mouth every twenty-four hours Tamsulosin HCl 0.4 MG 1 capsule Orally Once a day Active Vitamin D3 (5 sources) Vitamin D3 Activ e Zinc (5 sources) Zinc Active Problems Active Problems Problem Classification Problem Date Documented Date Episodic/Chronic Abdominal pain (11 sources) Right upper quadrant pain; Translations: [Right upper quadrant pain] Onset: 03-07-2021 Resolved: 03-07-2021 Episodic Coagulation and hemorrhagic disorders (1 source) Thrombocytopenia, unspecified; Translations: [THROMBOCYTOPENIA UNSPECIFIED] Onset: 08-21-2021 Chronic Diabetes mellitus with complications (16 sources) Disorder due to type 2 diabetes [...] Onset: 03-07-2021 Resolved: 03-07-2021 Chronic Esophageal disorders (8 sources) Gastroesophageal reflux disease; Translations: [Gastro-esophageal reflux disease without esophagitis] Onset: 06-11-2021 Resolved: 06-11-2021 Chronic Essential hypertension (6 sources) Essential (primary) hypertension; Translations: [Benign essential hypertension] Onset: 08-21-2021 02-19-2024 Chronic Osteoarthritis (4 sources) Osteoarthritis of knee; [...] Metabolic syndrome Onset: 06-11-2021 Resolved: 06-11-2021 Chronic Other nutritional; endocrine; and metabolic disorders (5 sources) Body mass index 30+ - obesity; Translations: [Body mass index (BMI) 37.0-37.9, adult] Onset: 07-01-2023 02-19-2024 Chronic Spondylosis; intervertebral disc disorders; other back problems (3 sources) Acute low back pain; Translations: [Acute right-sided low back pain without sciatica] Onset: 12-11-2023 01-22-2024 Episodic Unclassified (1 source) CONTACT W/AND (SUSP) EXPOS COVID-19; Translations: [CONTACT W/AND (SUSP) EXPOS COVID-19] Onset: 08-21-2021 Past or Other Problems Problem Classification Problem Date Documented Da te Episodic/Chronic Abdominal hernia (6 sources) Hiatal hernia; Translations: [Diaphragmatic hernia without obstruction or gangrene] Onset: 03-07-2021 Resolved: 03-07-2021 Episodic Acute and unspecified renal failure (1 source) Acute kidney failure, unspecified; Translations: [ACUTE KIDNEY FAILURE UNSPECIFIED] Onset: 08-21-2021 Episodic Esophageal disorders (5 sources) Esophagitis; Translations: [Esophagitis] Episodic Hemorrhoids (6 sources) Hemorrhoids; Translations: [Unspecified hemorrhoids] Onset: 03-07-2021 Resolved: 03-07-2021 Episodic Other aftercare (1 source) longterm (current) use of oral hypoglycemic drugs; Translations: [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 Marta Ashford Glucose [Mass/Vol] 243 mg/dL Normal [facility] Comment on above: Performed By: #### C JIMENA #### [facility] [address] [address] [address] Marta Ashford HbA1c (Bld) [Mass fraction] 10.1 % Critically high 4.5-6.2 [facility] Comment on above: Performed By: #### C JIMENA #### [facility] [address] [address] [address] Marta Ashford GLYCOHEMOGLOBIN A1Con 2021 ADA RECOMMENDATION SEE BELOW Normal [facility] Comment on above: Result Comment: ADA RECOMMENDED LIMIT 4.0 - 6.0 ADA THERAPEUTIC TARGET < 7.0 ACTION SUGGESTED > 7.0 Performed By: #### A 1C #### [facility] [address] [place] [address] Dr. Marta Ashford Glucose [Mass/Vol] 266 mg/dL Normal [facility] Comment on above: Performed By: #### A 1C #### [facility] [address] [place] [address] Dr. Marta Ashford HbA1c (Bld) [Mass fraction] 10.9 % Critically high 4.5-6.2 [facility] Comment on above: Performed By: #### A 1C #### [facility] [address] [place] [address] Dr. Marta Ashford CBC AUTO DIFFon 09-10-2021 BASO # 0.1 103/ul Normal 0.0-0.1 [facility] Comment on above: Performed By: #### A 1C #### [facility] [address] [place] [address] Dr. Marta Ashford Basophils/100 WBC (Bld) 0.7 % Normal 0.2-2.0 [facility] Comment on above: Performed By: #### A 1C #### [facility] [address] [place] [address] Dr. Marta Ashford EO # 0.3 103/ul Normal 0.0-0.7 [facility] Comment on above: Performed By: #### A 1C #### [facility] [address] [place] [address] Dr. Marta Ashford Eosinophils/100 WBC (Bld) 2.9 % Normal 0.9-7.0 [facility] Comment on above: Performed By: #### A 1C #### [facility] [address] [place] [address] Dr. Marta Ashford Erythrocyte distribution width (RBC) [Ratio] 12.6 % Normal 11.0-15.0 [facility] Comment on above: Performed By: #### A 1C #### [facility] [address] [place] [address] Dr. Marta Ashford Hematocrit (Bld) [Volume fraction] 45.0 % Normal 42.0-54.0 [facility] Comment on above: Performed By: #### A 1C #### [facility] [address] [place] [address] Dr. Marta Ashford Hemoglobin (Bld) [Mass/Vol] 14.4 g/dL Normal 14.0-18.0 [facility] Comment on above: Performed By: #### A 1C #### [facility] [address] [place] [address] Dr. Marta Ashford IG # 0.06 10e3/ul Critically high 0.00-0.03 [facility] Comment on above: Performed By: #### A 1C #### [facility] [address] [place] [address] Dr. Marta Ashford IG % 0.6 % Critically high 0.0-0.5 [facility] Comment on above: Performed By: #### A 1C #### [facility] [address] [place] [address] Dr. Marta Ashford LYMPH # 3.3 103/ul Normal 1.2-3.8 [facility] Comment on above: Performed By: #### A 1C #### [facility] [address] [place] [address] Dr. Marta Ashford Lymphocytes/100 WBC (Bld) 34.5 % Normal 20.5-60.0 [facility] Comment on above: Performed By: #### A 1C #### [facility] [address] [place] [address] Dr. Marta Ashford MANUAL DIFF REQ NO Normal [facility] Comment on above: Performed By: #### A 1C #### [facility] [address] [place] [address] Dr. Marta Ashford MCH (RBC) [Entitic mass] 31.0 pg Normal 25.9-34.0 [facility] Comment on above: Performed By: #### A 1C #### [facility] [address] [place] [address] Dr. Marta Ashford MCHC (RBC) [Mass/Vol] 32.0 g/dL Normal 29.9-35.2 [facility] Comment on above: Performed By: #### A 1C #### [facility] [address] [address] [address] Marta Ashford MCV (RBC) [Entitic vol] 96.8 fL Critically high 80.0-94.0 [facility] Comment on above: Performed By: #### A 1C #### [facility] [address] [address] [address] Marta Ashford MONO # 0.7 103/ul Normal 0.3-0.8 [facility] Comment on above: Performed By: #### A 1C #### [facility] [address] [address] [address] Marta Ashford Monocytes/100 WBC (Bld) 7.8 % Normal 1.7-12.0 [facility] Comment on above: Performed By: #### A 1C #### [facility] [address] [address] [address] Marta Ashford NEUT # 5.1 103/ul Normal 1.4-6.5 [facility] Comment on above: Performed By: #### A 1C #### [facility] [address] [address] [address] Marta Ashford Neutrophils/100 WBC (Bld) 53.5 % Normal 43.0-75.0 [facility] Comment on above: Performed By: #### A 1C #### [facility] [address] [address] [address] Marta Ashford Platelet mean volume (Bld) [Entitic vol] 12.3 fL Normal 9.5-13.5 [facility] Comment on above: Performed By: #### A 1C #### [facility] [address] [address] [address] Marta Ashford PLT 170 103/ul Normal 150-450 [facility] Comment on above: Performed By: #### A 1C #### [facility] [address] [address] [address] Marta Ashford RBC 4.65 106/ul Critically low 4.70-6.10 [facility] Comment on above: Performed By: #### A 1C #### [facility] [address] [address] [address] Marta Ashford WBC 9.5 103/ul Normal 4.0-11.0 [facility] Comment on above: Performed By: #### A 1C #### [facility] [address] [address] [address] Marta Ashford DIRECT LDLon 09-10-2021 Cholesterol in LDL [Mass/Vol] 96 mg/dL Normal [facility] Comment on above: Performed By: #### C JIMENA #### [facility] [address] [place] [address] Dr. Marta Ashford DLDL NORMAL SEE BELOW Normal [facility] Comment on above: Result Comment: <100 mg/dl OPTIMAL 100 - 129 mg/dl NEAR OR ABOVE OPTIMAL 130 - 159 mg/dl BORDERLINE HIGH 160 - 189 mg/dl HIGH >190 mg/dl VERY HIGH Performed By: #### C JIMENA #### [facility] [address] [place] [address] Dr. Marta Ashford GLYCOHEMOGLOBIN A1Con 2021 ADA RECOMMENDATION SEE BELOW Normal [facility] Comment on above: Result Comment: ADA RECOMMENDED LIMIT 4.0 - 6.0 ADA THERAPEUTIC TARGET < 7.0 ACTION SUGGESTED > 7.0 Performed By: #### A 1C #### [facility] [address] [place] [address] Dr. Marta Ashford Glucose [Mass/Vol] 223 mg/dL Normal [facility] Comment on above: Performed By: #### A 1C #### [facility] [address] [place] [address] Dr. Marta Ashford HbA1c (Bld) [Mass fraction] 9.4 % Critically high 4.5-6.2 [facility] Comment on above: Performed By: #### A 1C #### [facility] [address] [place] [address] Dr. Marta Ashford LIPID PROFILEon 09-10-2021 CHOL-HDL RATIO NORM SEE BELOW Normal [facility] Comment on above: Result Comment: 3.3 - 4.4 LOW RISK 4.4 - 7.1 AVERAGE RISK 7.1 - 11.0 MODERATE RISK >11.0 HIGH RISK Performed By: #### C JIMENA #### [facility] [address] [place] [address] Dr. Marta Ashford Cholesterol [Mass/Vol] 209 mg/dL Critically high <=200 [facility] Comment on above: Performed By: #### C JIMENA #### [facility] [address] [address] [address] Marta Ashford Cholesterol in HDL [Mass/Vol] 34 mg/dL Critically low 40-60 [facility] Comment on above: Performed By: #### C JIMENA #### [facility] [address] [place] [address] Dr. Marta Ashford Cholesterol.total/Chol esterol in HDL [Mass ratio] 6.1 {ratio} Normal [facility] Comment on above: Performed By: #### C JIMENA #### [facility] [address] [place] [address] Dr. Marta Ashford HDL NORMAL > or = 60 mg/dl - LO W CARDIOVASCULAR RISK <40 mg/dl - HIGH CARDIOVASCULAR RISK Normal [facility] Comment on above: Performed By: #### C JIMENA #### [facility] [address] [place] [address] Dr. Marta Ashford LDL CALC NORMAL SEE BELOW Normal [facility] Comment on above: Result Comment: <100 mg/dl OPTIMAL 100 - 129 mg/dl NEAR OR ABOVE OPTIMAL 130 - 159 mg/dl BORDERLINE HIGH 160 - 189 mg/dl HIGH >190 mg/dl VERY HIGH Performed By: #### C JIMENA #### [facility] [address] [place] [address] Dr. Marta Ashford Triglyceride [Mass/Vol] 591 mg/dL Critically high <=150 [facility] Comment on above: Performed By: #### C JIMENA #### [facility] [address] [place] [address] Dr. Marta Ashford VLDL CALC 118.2 mg/dL Normal [facility] Comment on above: Performed By: #### C JIMENA #### [facility] [address] [address] [address] Marta Ashford LIVER PROFILEon 09-10-2021 Albumin [Mass/Vol] 3.6 g/dL Normal 3.4-5.[address] [facility] Comment on above: Performed By: #### C JIMENA #### [facility] [address] [place] [address] Dr. Marta Ashford Albumin/Globulin [Mass ratio] 0.9 {ratio} Normal [facility] Comment on above: Performed By: #### C JIMENA #### [facility] [address] [place] [address] Dr. Marta Ashford ALP [Catalytic activity/Vol] 75 U/L Normal 46-116 [facility] Comment on above: Performed By: #### C JIMENA #### [facility] [address] [place] [address] Dr. Marta Ashford ALT [Catalytic activity/Vol] 40 U/L Normal 16-63 [facility] Comment on above: Performed By: #### C JIMENA #### [facility] [address] [place] [address] Dr. Marta Ashford AST [Catalytic activity/Vol] 24 U/L Normal 15-37 [facility] Comment on above: Performed By: #### C JIMENA #### [facility] [address] [place] [address] Dr. Marta Ashford BILI, CONJUGATED 0.1 mg/dL Normal 0.0-0.2 [facility] Comment on above: Performed By: #### C JIMENA #### [facility] [address] [place] [address] Dr. Marta Ashford Bilirubin [Mass/Vol] 0.3 mg/dL Normal 0.2-1.0 [facility] Comment on above: Performed By: #### C JIMENA #### [facility] [address] [place] [address] Dr. Marta Ashford Globulin (S) [Mass/Vol] 4.1 g/dL Normal [facility] Comment on above: Performed By: #### C JIMENA #### [facility] [address] [place] [address] Dr. Marta Ashford Protein [Mass/Vol] 7.7 g/dL Normal 6.1-8.2 [facility] Comment on above: Performed By: #### C BCMAN #### [facility] [address] [address] [address] Marta Ashford PROF CHEM 8 (BAS METB)on Anion gap [Moles/Vol] 11.0 mmol/L Normal [facility] Comment on above: Performed By: #### C BCMAN #### [facility] [address] [address] [address] Marta Ashford Calcium [Mass/Vol] 8.6 mg/dL Normal 8.5-10.1 [facility] Comment on above: Performed By: #### C BCMAN #### [facility] [address] [place] [address] Dr. Marta Ashford Chloride [Moles/Vol] 99 mmol/L Normal 98-107 [facility] Comment on above: Performed By: #### C BCVALERY #### [facility] [address] [place] [address] Dr. Marta Ashford CO2 [Moles/Vol] 27.0 mmol/L Normal 21.0-32.0 [facility] Comment on above: Performed By: #### C BCMAN #### [facility] [address] [place] [address] Dr. Marta Ashford Creatinine [Mass/Vol] 1.00 mg/dL Normal 0.70-1.30 [facility] Comment on above: Performed By: #### C BCMAN #### [facility] [address] [place] [address] Dr. Marta Ashford EGFR-AF KITTITIAN >60 Normal >=60 [facility] Comment on above: Performed By: #### C BCMAN #### [facility] [address] [place] [address] Dr. Marta Ashford EGFR-NON AF KITTITIAN >60 Normal >=60 [facility] Comment on above: Performed By: #### C JIMENA #### [facility] [address] [address] [address] Marta Ashford Glucose [Mass/Vol] 289 mg/dL Critically high 74-106 [facility] Comment on above: Performed By: #### Shira HESS #### [facility] [address] [place] [address] Dr. Marta Ashford Potassium [Moles/Vol] 4.0 mmol/L Normal 3.5-5.1 [facility] Comment on above: Performed By: #### Shira HESS #### [facility] [address] [place] [address] Dr. Marta Ashford Sodium [Moles/Vol] 133 mmol/L Critically low 136-145 [facility] Comment on above: Performed By: #### Shira HESS #### [facility] [address] [place] [address] Dr. Marta Ashford Urea nitrogen [Mass/Vol] 21.0 mg/dL Critically high 7.0-18.0 [facility] Comment on above: Performed By: #### Shira HESS #### [facility] [address] [place] [address] Dr. Marta Ashford Urea nitrogen/Creatinine [Mass ratio] 21.0 mg/mg Normal [facility] Comment on above: Performed By: #### Shira HESS #### [facility] [address] [place] [address] Dr. Marta Ashford TSHon 09-10-2021 TSH 2.331 uIU/mL Normal 0.470-4.680 [facility] Comment on above: Performed By: #### Shira HESS #### [facility] [address] [place] [address] Dr. Marta Ashford TSH RANGE SEE BELOW Normal [facility] Comment on above: Result Comment: <0.3 4 UIU/ml HYPERTHYROID 0.34-5.60 UIU/ml EUTHYROID >5.60 UIU/ml HYPOTHYROID Performed By: #### C JIMENA #### [facility] [address] [place] [address] Dr. Marta Ashford BLOOD CULTURE ID/SENSon 04- Aerobe ID + Suscept Final report Abnormal [facility] Comment on above: Performed By: #### C XPOSBL #### [facility] [address] [place] [address] Dr. Marta Ashford Antimicrobial Susceptibility Comment Normal [facility] Comment on above: Result Comment: S = [...] S Performed By: #### C XPOSBL #### [facility] [address] [place] [address] Dr. Marta Ashford Result 1 Comment Abnormal [facility] Comment on above: Result Comment: Esch erichia coli, identified by an automated biochemical system. Received aerobic bottle only. Performed By: #### C XPOSBL #### [facility] [address] [place] [address] Dr. Marta Ashford CBC AUTO DIFFon 08-18-2021 BASO # 0.1 103/ul Normal 0.0-0.1 [facility] Comment on above: Performed By: #### A 1C #### [facility] [address] [place] [address] Dr. Marta Ashford Basophils/100 WBC (Bld) 0.5 % Normal 0.2-2.0 [facility] Comment on above: Performed By: #### A 1C #### [facility] [address] [place] [address] Dr. Marta Ashford EO # 0.1 103/ul Normal 0.0-0.7 [facility] Comment on above: Performed By: #### A 1C #### [facility] [address] [place] [address] Dr. Marta Ashford Eosinophils/100 WBC (Bld) 0.8 % Critically low 0.9-7.0 [facility] Comment on above: Performed By: #### A 1C #### [facility] [address] [place] [address] Dr. Marta Ashford Erythrocyte distribution width (RBC) [Ratio] 12.8 % Normal 11.0-15.0 [facility] Comment on above: Performed By: #### A 1C #### [facility] [address] [place] [address] Dr. Marta Ashford Hematocrit (Bld) [Volume fraction] 40.1 % Critically low 42.0-54.0 [facility] Comment on above: Performed By: #### A 1C #### [facility] [address] [place] [address] Dr. Marta Ashford Hemoglobin (Bld) [Mass/Vol] 12.9 g/dL Critically low 14.0-18.0 [facility] Comment on above: Performed By: #### A 1C #### [facility] [address] [place] [address] Dr. Marta Ashford IG # 0.17 10e3/ul Critically high 0.00-0.03 [facility] Comment on above: Performed By: #### A 1C #### [facility] [address] [place] [address] Dr. Marta Ashford IG % 1.0 % Critically high 0.0-0.5 [facility] Comment on above: Performed By: #### A 1C #### [facility] [address] [place] [address] Dr. Marta Ashford LYMPH # 3.3 103/ul Normal 1.2-3.8 [facility] Comment on above: Performed By: #### A 1C #### [facility] [address] [place] [address] Dr. Marta Ashford Lymphocytes/100 WBC (Bld) 19.0 % Critically low 20.5-60.0 [facility] Comment on above: Performed By: #### A 1C #### [facility] [address] [place] [address] Dr. Marta Ashford MANUAL DIFF REQ NO Normal [facility] Comment on above: Performed By: #### A 1C #### [facility] [address] [place], [place] [id number] Dr. Marta Ashford MCH (RBC) [Entitic mass] 30.5 pg Normal 25.9-34.0 [facility] Comment on above: Performed By: #### A 1C #### [facility] [address] [place] [address] Dr. Marta Ashford MCHC (RBC) [Mass/Vol] 32.2 g/dL Normal 29.9-35.2 [facility] Comment on above: Performed By: #### A 1C #### [facility] [address] [place] [address] Dr. Marta Ashford MCV (RBC) [Entitic vol] 94.8 fL Critically high 80.0-94.0 [facility] Comment on above: Performed By: #### A 1C #### [facility] [address] [place] [address] Dr. Marta Ashford MONO # 1.2 103/ul Critically high 0.3-0.8 [facility] Comment on above: Performed By: #### A 1C #### [facility] [address] [place] [address] Dr. Marta Ashford Monocytes/100 WBC (Bld) 6.7 % Normal 1.7-12.0 [facility] Comment on above: Performed By: #### A 1C #### [facility] [address] [place] [address] Dr. Marta Ashford NEUT # 12.5 103/ul Critically high 1.4-6.5 The [facility] Comment on above: Performed By: #### A 1C #### [facility] [address] [place] [address] Dr. Marta Ashford Neutrophils/100 WBC (Bld) 72.0 % Normal 43.0-75.0 [facility] Comment on above: Performed By: #### A 1C #### [facility] [address] [place] [address] Dr. Marta Ashford Platelet mean volume (Bld) [Entitic vol] 11.8 fL Normal 9.5-13.5 [facility] Comment on above: Performed By: #### A 1C #### [facility] [address] [address] [address] Marta Ashford PLT 149 103/ul Critically low 150-450 The [facility] Comment on above: Performed By: #### A 1C #### [facility] [address] [address] [address] Marta Ashford RBC 4.23 106/ul Critically low 4.70-6.10 [facility] Comment on above: Performed By: #### A 1C #### [facility] [address] [address] [address] Marta Ashford WBC 17.4 103/ul Critically high 4.0-11.0 [facility] Comment on above: Performed By: #### A 1C #### [facility] [address] [place] [address] Dr. Marta Ashford CULTURE URINEon 08-18-2021 CULTURE URINE Isolate [...] F Trimethoprim/Sulfamet hoxazole <=20 S F Normal [facility] Comment on above: Performed By: #### A 1C #### [facility] [address] [place] [address] Dr. Marta Ashford PH VENOUS BLOODon 08-18-2021 PCO2 VENOUS 36.1 mmHg Critically low 40.0-52.0 [facility] Comment on above: Performed By: #### A 1C #### [facility] [address] [address] [address] Marta Ashford pH VENOUS 7.452 Critically high 7.330-7.430 [facility] Comment on above: Performed By: #### A 1C #### [facility] [address] [address] [address] Marta Ashford POINT OF CARE GLUCOSEon 08-09 Glucose [Mass/Vol] 276 mg/dL Critically high 74-106 [facility] Comment on above: Performed By: #### P OCGLUC #### [facility] [address] [address] [address] Marta Ashford PROF CHEM 8 (BAS METB)on Anion gap [Moles/Vol] 12.5 mmol/L Normal [facility] Comment on above: Performed By: #### P HVEN #### [facility] [address] [place] [address] Dr. Marta Ashford Calcium [Mass/Vol] 8.5 mg/dL Normal 8.5-10.[address] [facility] Comment on above: Performed By: #### P HVEN #### [facility] [address] [place] [address] Dr. Marta Ashford Chloride [Moles/Vol] 105 mmol/L Normal 98-107 [facility] Comment on above: Performed By: #### P HVEN #### [facility] [address] [place] [address] Dr. Marta Ashford CO2 [Moles/Vol] 25.5 mmol/L Normal 22.0-30.0 [facility] Comment on above: Performed By: #### P HVEN #### [facility] [address] [place] [address] Dr. Marta Ashford Creatinine [Mass/Vol] 0.90 mg/dL Normal 0.66-1.25 [facility] Comment on above: Performed By: #### P HVEN #### [facility] [address] [place] [address] Dr. Marta Ashford EGFR-AF KITTITIAN >60 Normal >=60 [facility] Comment on above: Performed By: #### P HVEN #### [facility] [address] [place] [address] Dr. Marta Ashford EGFR-NON AF KITTITIAN >60 Normal >=60 [facility] Comment on above: Performed By: #### P HVEN #### [facility] [address] [address] [address] Marta Ashford Glucose [Mass/Vol] 239 mg/dL Critically high 74-106 [facility] Comment on above: Performed By: #### P HVEN #### [facility] [address] [address] [address] Marta Ashford Potassium [Moles/Vol] 4.0 mmol/L Normal 3.4-5.0 [facility] Comment on above: Performed By: #### P HVEN #### [facility] [address] [address] [address] Marta Ashford Sodium [Moles/Vol] 139 mmol/L Normal 137-[address] [facility] Comment on above: Performed By: #### P HVEN #### [facility] [address] [address] [address] Marta Ashford Urea nitrogen [Mass/Vol] 13.0 mg/dL Normal 7.0-18.0 [facility] Comment on above: Performed By: #### P HVEN #### [facility] [address] [address] [address] Marta Ashford Urea nitrogen/Creatinine [Mass ratio] 14.4 mg/mg Normal [facility] Comment on above: Performed By: #### P HVEN #### [facility] [address] [address] [address] Marta Ashford CBC W MANUAL DIFFon 08-18-19 22 ATYPICAL LYMPH # Normal [facility] Comment on above: Performed By: #### C BCMAN #### [facility] [address] [address] [address] Marta Ashford ATYPICAL LYMPH % Normal [facility] Comment on above: Performed By: #### C BCMAN #### [facility] [address] [address] [address] Marta Ashford BAND # 2.7 103/ul Critically high 0.0-0.3 [facility] Comment on above: Performed By: #### C BCMAN #### [facility] [address] [address] [address] Marta Ashford BAND % 15 % Critically high 0-5 [facility] Comment on above: Performed By: #### C JIMENA #### [facility] [address] [address] [address] Marta Ashford BASOM # 0.00 103/ul Normal 0.00-0.10 [facility] Comment on above: Performed By: #### C BCVALERY #### [facility] [address] [address] [address] Marta Ashford BASOM % 0.0 % Critically low 0.2-2.0 The [facility] Comment on above: Performed By: #### C BCVALERY #### [facility] [address] [place] [address] Dr. Marta Ashford BLAST # Normal [facility] Comment on above: Performed By: #### C JIMENA #### [facility] [address] [place] [address] Dr. Marta Ashford BLAST % Normal [facility] Comment on above: Performed By: #### C JIMENA #### [facility] [address] [address] [address] Marta Ashford CORRECTED WBC Normal 4.0-11.[address] [facility] Comment on above: Performed By: #### C JIMENA #### [facility] [address] [place] [address] Dr. Marta Ashford EOS # 0.00 103/ul Normal 0.00-0.70 [facility] Comment on above: Performed By: #### C BCVALERY #### [facility] [address] [place] [address] Dr. Marta Ashford EOS% 0.0 % Critically low 0.9-7.0 The [facility] Comment on above: Performed By: #### C JIMENA #### [facility] [address] [place] [address] Dr. Marta Ashford HCT 37.5 % Critically low 42.0-54.0 The [facility] Comment on above: Performed By: #### C JIMENA #### [facility] [address] [address] [address] Marta Ashford HGB 12.1 g/dl Critically low 14.0-18.0 The [facility] Comment on above: Performed By: #### C JIMENA #### [facility] [address] [address] [address] Marta Ashford LYMPHM # 3.20 103/ul Normal 1.20-3.80 [facility] Comment on above: Performed By: #### C JIMENA #### [facility] [address] [address] [address] Marta Ashford LYMPHM% 18.0 % Critically low 20.5-60.0 The [facility] Comment on above: Performed By: #### C JIMENA #### [facility] [address] [place] [address] Dr. Marta Ashford MCH 31.2 pg Normal 25.9-34.0 [facility] Comment on above: Performed By: #### C JIMENA #### [facility] [address] [address] [address] Marta Ashford MCHC 32.3 g/dl Normal 29.9-35.2 [facility] Comment on above: Performed By: #### C JIMENA #### [facility] [address] [place] [address] Dr. Marta Ashford MCV 96.6 fL Critically high 80.0-94.0 [facility] Comment on above: Performed By: #### C JIMENA #### [facility] [address] [address] [address] Marta Ahsford METAMYELOCYTE # Normal [facility] Comment on above: Performed By: #### C JIMENA #### [facility] [address] [address] [address] Marta Ashford METAMYELOCYTE % Normal [facility] Comment on above: Performed By: #### C JIMENA #### [facility] [address] [address] [address] Marta Ashford MONOM# 1.25 103/ul Critically high 0.30-0.80 [facility] Comment on above: Performed By: #### C JIMENA #### [facility] [address] [address] [address] Marta Ashford MONOM% 7.0 % Normal 1.7-12.0 [facility] Comment on above: Performed By: #### C JIMENA #### [facility] [address] [address] [address] Marta Ashford MPV 11.4 fL Normal 9.5-13.5 [facility] Comment on above: Performed By: #### C JIMENA #### [facility] [address] [address] [address] Marta Ashford MYELOCYTE # Normal [facility] Comment on above: Performed By: #### C JIMENA #### [facility] [address] [place] [address] Dr. Marta Ashford MYELOCYTE % Normal [facility] Comment on above: Performed By: #### C JIMENA #### [facility] [address] [place] [address] Dr. Marta Ashford NRBC Normal [facility] Comment on above: Performed By: #### C JIMENA #### [facility] [address] [place] [address] Dr. Marta Ashford PLT 106 103/ul Critically low 150-450 [facility] Comment on above: Performed By: #### C JIMENA #### [facility] [address] [address] [address] Marta Ashford RBC 3.88 106/ul Critically low 4.70-6.10 [facility] Comment on above: Performed By: #### C JIMENA #### [facility] [address] [address] [address] Marta Ashford RDW 13.1 % Normal 11.0-15.0 [facility] Comment on above: Performed By: #### C JIMENA #### [facility] [address] [place] [address] Dr. Marta Ashford SEG # 10.68 103/ul Critically high 1.40-6.50 [facility] Comment on above: Performed By: #### C BCMAN #### [facility] [address] [address] [address] Marta Ashford SEG % 60.0 % Normal 43.0-75.0 [facility] Comment on above: Performed By: #### C BCMAN #### [facility] [address] [address] [address] Marta Ashford WBC 17.8 103/ul Critically high 4.0-11.0 [facility] Comment on above: Performed By: #### C BCMAN #### [facility] [address] [address] [address] Marta Ashford PH VENOUS BLOODon 08-17-2021 PCO2 VENOUS 37.5 mmHg Critically low 40.0-52.0 [facility] Comment on above: Performed By: #### P HVEN #### [facility] [address] [address] [address] Marta Ashford pH VENOUS 7.390 Normal 7.330-7.430 [facility] Comment on above: Performed By: #### P HVEN #### [facility] [address] [address] [address] Marta Ashford POINT OF CARE GLUCOSEon Glucose [Mass/Vol] 261 mg/dL Critically high [facility]106 [facility] Comment on above: Performed By: #### A 1C #### [facility] [address] [address] [address] Marta Ashford Glucose [Mass/Vol] 213 mg/dL Critically high [address] [facility] Comment on above: Performed By: #### A 1C #### [facility] [address] [address] [address] Marta Ashford Glucose [Mass/Vol] 305 mg/dL Critically high [facility]106 [facility] Comment on above: Performed By: #### A 1C #### [facility] [address] [address] [address] Marta Ashford PROF CHEM 8 (BAS METB)on Anion gap [Moles/Vol] 13.8 mmol/L Normal [facility] Comment on above: Performed By: #### A 1C #### [facility] [address] [place] [address] Dr. Marta Ashford Calcium [Mass/Vol] 7.3 mg/dL Critically low 8.5-10.1 Th [facility] Comment on above: Performed By: #### A 1C #### [facility] [address] [place] [address] Dr. Marta Ashford Chloride [Moles/Vol] 108 mmol/L Critically high 98-107 [facility] Comment on above: Performed By: #### A 1C #### [facility] [address] [place] [address] Dr. Marta Ashford CO2 [Moles/Vol] 22.2 mmol/L Normal 22.0-30.0 [facility] Comment on above: Performed By: #### A 1C #### [facility] [address] [place] [address] Dr. Marta Ashford Creatinine [Mass/Vol] 0.95 mg/dL Normal 0.66-1.25 [facility] Comment on above: Performed By: #### A 1C #### [facility] [address] [place] [address] Dr. Marta Ashford EGFR-AF KITTITIAN >60 Normal >=60 [facility] Comment on above: Performed By: #### A 1C #### [facility] [address] [place] [address] Dr. Marta Ashford EGFR-NON AF KITTITIAN >60 Normal >=60 [facility] Comment on above: Performed By: #### A 1C #### [facility] [address] [place] [address] Dr. Marta Ashford Glucose [Mass/Vol] 181 mg/dL Critically high 74-106 [facility] Comment on above: Performed By: #### A 1C #### [facility] [address] [place] [address] Dr. Marta Ashfodr Potassium [Moles/Vol] 4.0 mmol/L Normal 3.4-5.0 [facility] Comment on above: Performed By: #### A 1C #### [facility] [address] [address] [address] Marta Ashford Sodium [Moles/Vol] 140 mmol/L Normal 137-[address] [facility] Comment on above: Performed By: #### A 1C #### [facility] [address] [address] [address] Marta Ashford Urea nitrogen [Mass/Vol] 17.0 mg/dL Normal 7.0-18.0 [facility] Comment on above: Performed By: #### A 1C #### [facility] [address] [address] [address] Marta Ashford Urea nitrogen/Creatinine [Mass ratio] 17.9 mg/mg Normal [facility] Comment on above: Performed By: #### A 1C #### [facility] [address] [place] [address] Dr. Marta Ashford BLOOD CULTURE ID PANELon A. baumannii Not detected [facility] Comment on above: Performed By: #### A 1C #### [facility] [address] [address] [address] Marta Ashford BCID CONTROLS PASSED Normal The [facility] Comment on above: Performed By: #### A 1C #### [facility] [address] [place] [address] Dr. Marta Ashford BCIDBTHD BLOOD CULTURE BOTTLE INFORMATION Normal [facility] Comment on above: Performed By: #### A 1C #### [facility] [address] [place] [address] Dr. Marta Ashford BCIDHD1 ANTIMICROBIAL RESISTANCE GENES [facility] Comment on above: Performed By: #### A 1C #### [facility] [address] [place] [address] Dr. Marta Ashford BCIDHD2 SEE BELOW [facility] Comment on above: Result Comment: KPC- carbapenem resistance gene, mecA- methecillin resistance gene, van A/B- vancomycin resistance gene Note: Antimicrobial resitance can occur via multiple mechanisms. A Not Detected result for the [employer] antomicrobial resistance gene assays does not indicate antimicrobial susceptibility. Subculturing is required for specis identificationand susceptibility testing of isolates. Performed By: #### A 1C #### [facility] [address] [place] [address] Dr. Marta Ashford BCIDHD3 Positive Normal [facility] Comment on above: Performed By: #### A 1C #### [facility] [address] [place] [address] Dr. Marta Ashford BCIDHD4 Negative Normal [facility] Comment on above: Performed By: #### A 1C #### [facility] [address] [place] [address] Dr. Marta Ashford BCIDHD5 YEAST Normal [facility] Comment on above: Performed By: #### A 1C #### [facility] [address] [place] [address] Dr. Marta Ashford BCIDHD6 SEE BELOW [facility] Comment on above: Result Comment: Note : All genus and species BCID [employer] results will be verified post subculturing via Maldi-Tof MS testing methodology. Performed By: #### A 1C #### [facility] [address] [place] [address] Dr. Marta Ashford Bottle Set: Set 2 Normal [facility] Comment on above: Performed By: #### A 1C #### [facility] [address] [place] [address] Dr. Marta Ashford Bottle: Aerobic Normal [facility] Comment on above: Performed By: #### A 1C #### [facility] [address] [place] [address] Dr. Marta Ashford Surekha albicans Not detected Normal [facility] Comment on above: Performed By: #### A 1C #### [facility] [address] [place] [address] Dr. Marta Ashford Surekha glabrata Not detected Normal [facility] Comment on above: Performed By: #### A 1C #### [facility] [address] [place] [address] Dr. Marta Ashford Surekha Krusei Not detected Normal [facility] Comment on above: Performed By: #### A 1C #### [facility] [address] [place], [place] [id number] Dr. Marta Ashford Surekha Parapsilosis Not detected Normal [facility] Comment on above: Performed By: #### A 1C #### [facility] [address] [place] [address] Dr. Marta Ashford Surekha Tropicalis Not detected Normal [facility] Comment on above: Performed By: #### A 1C #### [facility] [address] [place] [address] Dr. Marta Ashford E. Cloacae complex Not detected Normal [facility] Comment on above: Performed By: #### A 1C #### [facility] [address] [place] [address] Dr. Marta Ashford Enterobacteriaceae Detected Critically abnormal [facility] Comment on above: Performed By: #### A 1C #### [facility] [address] [place] [address] Dr. Marta Ashford Enterococcus Not detected Normal The [facility] Comment on above: Performed By: #### A 1C #### [facility] [address] [place] [address] Dr. Marta Ashford Escheria coli Detected Critically abnormal [facility] Comment on above: Performed By: #### A 1C #### [facility] [address] [place] [address] Dr. Marta Ashford K. oxytoca Not detected Normal [facility] Comment on above: Performed By: #### A 1C #### [facility] [address] [place] [address] Dr. Marta Ashford K. pneumoniae Not detected Normal [facility] Comment on above: Performed By: #### A 1C #### [facility] [address] [place] [address] Dr. Marta Ashford KPC Resistant Gene Not detected Normal [facility] Comment on above: Performed By: #### A 1C #### [facility] [address] [place] [address] Dr. Marta Ashford List. monocytogenes Not detected Normal [facility] Comment on above: Performed By: #### A 1C #### [facility] [address] [place] [address] Dr. Marta Ashford mecA Resistant Gene Not Applicable Normal [facility] Comment on above: Performed By: #### A 1C #### [facility] [address] [place] [address] Dr. Marta Ashford Proteus Not detected Normal [facility] Comment on above: Performed By: #### A 1C #### [facility] [address] [place] [address] Dr. Marta Ashford Pseud. aeruginosa Not detected Normal [facility] Comment on above: Performed By: #### A 1C #### [facility] [address] [place] [address] Dr. Marta Ashford Seratia marcescens Not detected Normal [facility] Comment on above: Performed By: #### A 1C #### [facility] [address] [place] [address] Dr. Marta Ashford Site: left hand Normal [facility] Comment on above: Performed By: #### A 1C #### [facility] [address] [place] [address] Dr. Marta Ashford Staph. aureus Not detected Normal [facility] Comment on above: Performed By: #### A 1C #### [facility] [address] [place] [address] Dr. Marta Ashford Staphylococcus Not detected Normal [facility] Comment on above: Performed By: #### A 1C #### [facility] [address] [place] [address] Dr. Marta Ashford Strep. agalactiae Not detected Normal [facility] Comment on above: Performed By: #### A 1C #### [facility] [address] [place] [address] Dr. Marta Ashford Strep. pneumoniae Not detected Normal [facility] Comment on above: Performed By: #### A 1C #### [facility] [address] [place] [address] Dr. Marta Ashford Strep. pyogenes Not detected Normal The [facility] Comment on above: Performed By: #### A 1C #### [facility] [address] [place] [address] Dr. Marta Ashford Streptococcus Not detected Normal [facility] Comment on above: Performed By: #### A 1C #### [facility] [address] [place] [address] Dr. Marta Quinn/Lucille Steinberg. Gene Not Applicable Normal [facility] Comment on above: Performed By: #### A 1C #### [facility] [address] [place] [address] Dr. Marta Ashford CARDIAC PAOLO 3-6on 2 CK [Catalytic activity/Vol] 112 U/L Normal 55-170 [facility] Comment on above: Performed By: #### P HVEN #### [facility] [address] [place] [address] Dr. Marta Ashford CK.MB [Mass/Vol] 1.13 ng/mL Normal <=2.37 The [facility] Comment on above: Performed By: #### P HVEN #### [facility] [address] [place] [address] Dr. Marta Ashford HSTROP 283.1 pg/mL Critically high 4.0-42.2 The [facility] Comment on above: Result Comment: CUT- OFF POINTS HAVE BEEN ESTABLISHED BASED ON THE FOURTH UNIVERSAL DEFINITIONS OF MYOCARDIAL INFARCTION. THE UPPER REFERENCE LIMIT (URL) OF TROPONIN, DEFINED THE 99TH PERCENTILE OF cTnI DISTRIBUTION IN A REFERENCE POPULATION, HAS BEEN CONFIRMED THE DECISION THRESHOLD FOR RI DIAGNOSIS. TEST REPEATED CRITICAL VALUE VERIFIED Performed By: #### P HVEN #### [facility] [address] [place] [address] Dr. Marta Ashford CK [Catalytic activity/Vol] 98 U/L Normal 55-170 [facility] Comment on above: Performed By: #### A 1C #### [facility] [address] [place] [address] Dr. Marta Ashford CK.MB [Mass/Vol] 1.08 ng/mL Normal <=2.37 The [facility] Comment on above: Performed By: #### A 1C #### [facility] [address] [place] [address] Dr. Marta Ashford HSTROP 310.8 pg/mL Critically high 4.0-42.2 [facility] Comment on above: Result Comment: CUT- OFF POINTS HAVE BEEN ESTABLISHED BASED ON THE FOURTH UNIVERSAL DEFINITIONS OF MYOCARDIAL INFARCTION. THE UPPER REFERENCE LIMIT (URL) OF TROPONIN, DEFINED THE 99TH PERCENTILE OF cTnI DISTRIBUTION IN A REFERENCE POPULATION, HAS BEEN CONFIRMED THE DECISION THRESHOLD FOR RI DIAGNOSIS. test repeated Performed By: #### A 1C #### [facility] [address] [place] [address] Dr. Marta Ashford CARDIAC PAOLO ADMITon 022 CK [Catalytic activity/Vol] 100 U/L Normal 55-170 [facility] Comment on above: Performed By: #### C JIMENA #### [facility] [address] [place] [address] Dr. Marta Ashford CK.MB [Mass/Vol] 1.20 ng/mL Normal <=2.37 [facility] Comment on above: Performed By: #### C JIMENA #### [facility] [address] [place] [address] Dr. Marta Ashford HSTROP 51.6 pg/mL Critically high 4.0-42.2 [facility] Comment on above: Result Comment: CUT- OFF POINTS HAVE BEEN ESTABLISHED BASED ON THE FOURTH UNIVERSAL DEFINITIONS OF MYOCARDIAL INFARCTION. THE UPPER REFERENCE LIMIT (URL) OF TROPONIN, DEFINED THE 99TH PERCENTILE OF cTnI DISTRIBUTION IN A REFERENCE POPULATION, HAS BEEN CONFIRMED THE DECISION THRESHOLD FOR RI DIAGNOSIS. Performed By: #### C JIMENA #### [facility] [address] [place] [address] Dr. Marta Ashford ANGELICA 77.0 ng/mL Normal <=121.0 [facility] Comment on above: Performed By: #### C JIMENA #### [facility] [address] [place] [address] Dr. Marta Ashford CBC AUTO DIFFon 08-16-2021 BASO # 0.0 103/ul Normal 0.0-0.1 [facility] Comment on above: Performed By: #### A 1C #### [facility] [address] [place] [address] Dr. Marta Ashford Basophils/100 WBC (Bld) 0.2 % Normal 0.2-2.0 [facility] Comment on above: Performed By: #### A 1C #### [facility] [address] [place] [address] Dr. Marta Ashford EO # 0.0 103/ul Normal 0.0-0.7 [facility] Comment on above: Performed By: #### A 1C #### [facility] [address] [place] [address] Dr. Marta Ashford Eosinophils/100 WBC (Bld) 0.2 % Critically low 0.9-7.0 [facility] Comment on above: Performed By: #### A 1C #### [facility] [address] [place] [address] Dr. Marta Ashford Erythrocyte distribution width (RBC) [Ratio] 12.8 % Normal 11.0-15.0 [facility] Comment on above: Performed By: #### A 1C #### [facility] [address] [place] [address] Dr. Marta Ashford Hematocrit (Bld) [Volume fraction] 38.4 % Critically low 42.0-54.0 [facility] Comment on above: Performed By: #### A 1C #### [facility] [address] [place] [address] Dr. Marta Ashford Hemoglobin (Bld) [Mass/Vol] 12.7 g/dL Critically low 14.0-18.0 [facility] Comment on above: Performed By: #### A 1C #### [facility] [address] [place] [address] Dr. Marta Ashford IG # 0.03 10e3/ul Normal 0.00-0.03 [facility] Comment on above: Performed By: #### A 1C #### [facility] [address] [place] [address] Dr. Marta Ashford IG % 0.6 % Critically high 0.0-0.5 [facility] Comment on above: Performed By: #### A 1C #### [facility] [address] [place] [address] Dr. Marta Ashford LYMPH # 0.5 103/ul Critically low 1.2-3.8 [facility] Comment on above: Performed By: #### A 1C #### [facility] [address] [place] [address] Dr. Marta Ashford Lymphocytes/100 WBC (Bld) 11.1 % Critically low 20.5-60.0 [facility] Comment on above: Result Comment: dif. not rqd. same as 08/16/21 Performed By: #### A 1C #### [facility] [address] [place] [address] Dr. Marta Ashford MANUAL DIFF REQ NO Normal [facility] Comment on above: Performed By: #### A 1C #### [facility] [address] [place] [address] Dr. Marta Ashford MCH (RBC) [Entitic mass] 31.1 pg Normal 25.9-34.0 [facility] Comment on above: Performed By: #### A 1C #### [facility] [address] [place] [address] Dr. Marta Ashford MCHC (RBC) [Mass/Vol] 33.1 g/dL Normal 29.9-35.2 [facility] Comment on above: Performed By: #### A 1C #### [facility] [address] [place] [address] Dr. Marta Ashford MCV (RBC) [Entitic vol] 93.9 fL Normal 80.0-94.0 [facility] Comment on above: Performed By: #### A 1C #### [facility] [address] [place] [address] Dr. Marta Ashford MONO # 0.0 103/ul Critically low 0.3-0.8 The [facility] Comment on above: Performed By: #### A 1C #### [facility] [address] [place] [address] Dr. Marta Ashford Monocytes/100 WBC (Bld) 0.6 % Critically low 1.7-12.0 [facility] Comment on above: Performed By: #### A 1C #### [facility] [address] [place] [address] Dr. Marta Ashford NEUT # 4.2 103/ul Normal 1.4-6.5 [facility] Comment on above: Performed By: #### A 1C #### [facility] [address] [place] [address] Dr. Marta Ashford Neutrophils/100 WBC (Bld) 87.3 % Critically high 43.0-75.0 [facility] Comment on above: Performed By: #### A 1C #### [facility] [address] [place] [address] Dr. Marta Ashford Platelet mean volume (Bld) [Entitic vol] 11.1 fL Normal 9.5-13.5 [facility] Comment on above: Performed By: #### A 1C #### [facility] [address] [place] [address] Dr. Marta Ashford PLT 114 103/ul Critically low 150-450 [facility] Comment on above: Performed By: #### A 1C #### [facility] [address] [place] [address] Dr. Marta Ashford RBC 4.09 106/ul Critically low 4.70-6.10 [facility] Comment on above: Performed By: #### A 1C #### [facility] [address] [place] [address] Dr. Marta Ashford WBC 4.8 103/ul Normal 4.0-11.0 [facility] Comment on above: Performed By: #### A 1C #### [facility] [address] [place] [address] Dr. Marta Ashford CBC W MANUAL DIFFon 08-17-19 22 ATYPICAL LYMPH # Normal [facility] Comment on above: Performed By: #### A 1C #### [facility] [address] [place] [address] Dr. Marta Ashford ATYPICAL LYMPH % Normal [facility] Comment on above: Performed By: #### A 1C #### [facility] [address] [place] [address] Dr. Marta Ashford BAND # Normal 0.0-0.3 [facility] Comment on above: Performed By: #### A 1C #### [facility] [address] [place] [address] Dr. Marta Ashford BAND % Normal 0-5 [facility] Comment on above: Performed By: #### A 1C #### [facility] [address] [place] [address] Dr. Marta Ashford BASOM # 0.00 103/ul Normal 0.00-0.10 [facility] Comment on above: Performed By: #### A 1C #### [facility] [address] [place] [address] Dr. Marta Ashford BASOM % 0.0 % Critically low 0.2-2.0 [facility] Comment on above: Performed By: #### A 1C #### [facility] [address] [place] [address] Dr. Marta Ashford BLAST # Normal [facility] Comment on above: Performed By: #### A 1C #### [facility] [address] [place] [address] Dr. Marta Ashford BLAST % Normal [facility] Comment on above: Performed By: #### A 1C #### [facility] [address] [place] [address] Dr. Marta Ashford CORRECTED WBC Normal 4.0-11.[address] [facility] Comment on above: Performed By: #### A 1C #### [facility] [address] [place] [address] Dr. Marta Ashford EOS # 0.03 103/ul Normal 0.00-0.70 [facility] Comment on above: Performed By: #### A 1C #### [facility] [address] [place] [address] Dr. Marta Ashford EOS% 1.0 % Normal 0.9-7.0 [facility] Comment on above: Performed By: #### A 1C #### [facility] [address] [place] [address] Dr. Marta Ashford HCT 44.0 % Normal 42.0-54.0 [facility] Comment on above: Performed By: #### A 1C #### [facility] [address] [place] [address] Dr. Marta Ashford HGB 14.5 g/dl Normal 14.0-18.0 [facility] Comment on above: Performed By: #### A 1C #### [facility] [address] [place] [address] Dr. Marat Ashford LYMPHM # 0.90 103/ul Critically low 1.20-3.80 [facility] Comment on above: Performed By: #### A 1C #### [facility] [address] [place] [address] Dr. Marta Ashford LYMPHM% 32.0 % Normal 20.5-60.0 [facility] Comment on above: Performed By: #### A 1C #### [facility] [address] [place] [address] Dr. Marta Ashford MCH 31.2 pg Normal 25.9-34.0 [facility] Comment on above: Performed By: #### A 1C #### [facility] [address] [place] [address] Dr. Marta Ashford MCHC 33.0 g/dl Normal 29.9-35.2 [facility] Comment on above: Performed By: #### A 1C #### [facility] [address] [place] [address] Dr. Marta Ashford MCV 94.6 fL Critically high 80.0-94.0 [facility] Comment on above: Performed By: #### A 1C #### [facility] [address] [place] [address] Dr. Marta Ashford METAMYELOCYTE # Normal [facility] Comment on above: Performed By: #### A 1C #### [facility] [address] [place] [address] Dr. Marta Ashford METAMYELOCYTE % Normal [facility] Comment on above: Performed By: #### A 1C #### [facility] [address] [place] [address] Dr. Marta Ashford MONOM# 0.06 103/ul Critically low 0.30-0.80 [facility] Comment on above: Performed By: #### A 1C #### [facility] [address] [place] [address] Dr. Marta Ashford MONOM% 2.0 % Normal 1.7-12.0 [facility] Comment on above: Performed By: #### A 1C #### [facility] [address] [place] [address] Dr. Marta Ashford MPV 10.8 fL Normal 9.5-13.5 [facility] Comment on above: Performed By: #### A 1C #### [facility] [address] [place] [address] Dr. Marta Ashford MYELOCYTE # Normal [facility] Comment on above: Performed By: #### A 1C #### [facility] [address] [place] [address] Dr. Marta Ashford MYELOCYTE % Normal [facility] Comment on above: Performed By: #### A 1C #### [facility] [address] [place] [address] Dr. Marta Ashford NRBC Normal [facility] Comment on above: Performed By: #### A 1C #### [facility] [address] [place] [address] Dr. Marta Ashford PLT 129 103/ul Critically low 150-450 [facility] Comment on above: Performed By: #### A 1C #### [facility] [address] [place] [address] Dr. Marta Ashford RBC 4.65 106/ul Critically low 4.70-6.10 [facility] Comment on above: Performed By: #### A 1C #### [facility] [address] [place] [address] Dr. Marta Ashford RDW 12.9 % Normal 11.0-15.0 [facility] Comment on above: Performed By: #### A 1C #### [facility] [address] [place] [address] Dr. Marta Ashford SEG # 1.82 103/ul Normal 1.40-6.50 [facility] Comment on above: Performed By: #### A 1C #### [facility] [address] [place] [address] Dr. Marta Ashford SEG % 65.0 % Normal 43.0-75.0 [facility] Comment on above: Performed By: #### A 1C #### [facility] [address] [place], [place] [address] Dr. Marta Ashford WBC 2.8 103/ul Critically low 4.0-11.0 [facility] Comment on above: Performed By: #### A 1C #### [facility] [address] [place], [place] [address] ABD/PELVIS WO CONon [...] ROVERTO GREEN[place] Date: 2021-08-16 05:21 Normal [facility] CULTURE BLOODon 08-16-2021 Microscopic examination of blood, culture Culture Observations: No growth at 5 days. Normal [facility] Comment on above: Performed By: #### B LDCX2 #### [facility] [address] [place], [place] [address] Dr. Marta Ashford Microscopic examination of blood, culture Culture Observations: No growth at 5 days. Normal [facility] Comment on above: Performed By: #### A 1C #### [facility] [address] [place], [place] [address] Dr. Marta Ashford [facility] SARS-CoV-2 (COVID-19) RNA NORMA+probe Ql (Unsp spec) Not detected Normal NOT DETECTED [facility] Comment on above: Result Comment: When diagnostic testing is negative, the possibility of a false negative should be considered in the context of a patient's recent exposures and the presence of clinical signs and symptoms consistent with SARS-CoV-2. This test is not yet approved or cleared by the [place] Food and Drug Administration (FDA). This test was developed by [employer], [place], [place]. The performance characteristics of this test were validated by [facility]. The results are not intended to be used as the sole means for clinical diagnosis or patient management decisions. [facility] is authorized under Clinical Laboratory Improvement Amendments [...] for this test is supported by the [place] of Health and Human Service's declaration that [...] used). Performed By: #### A 1C #### [facility] [address] [place] [place] [address] [address] Marta Ashford DRUG SCREEN RAPID (URINE)on 08-16-2021 AMP Negative Normal NEGATIVE [facility] Comment on above: Performed By: #### P HVEN #### [facility] [address] [place] [address] [address] Marta Ashford BAR Negative Normal NEGATIVE [facility] Comment on above: Performed By: #### P HVEN #### [facility] [address] [place] [address] [address] Marta Ashford BUP Negative Normal NEGATIVE [facility] Comment on above: Performed By: #### P HVEN #### [facility] [address] [place] [address] Dr. Marta Ashford BZO Negative Normal NEGATIVE [facility] Comment on above: Performed By: #### P HVEN #### [facility] [address] [place] [address] Dr. Marta Ashford ROME Negative Normal NEGATIVE [facility] Comment on above: Performed By: #### P HVEN #### [facility] [address] [place] [address] Dr. Marta Ashford CUT-OFFS SEE BELOW Normal [facility] Comment on above: Result Comment: AMP (Amphetamine): 500ng/mL, BAR (Barbituates): 200 ng/mL, BZO (Benzodiazepines): 150 ng/mL, BUP (Buprenorphine): 10 ng/mL, ROME (Cocaine): 150 ng/mL, mAMP (Methamphetamine): 500 ng/mL, MTD (Methadone): 200 ng/mL, OPI (Opiates): 100 ng/mL, OXY (Oxycodone): 100 ng/mL, PCP (Phencyclidine): 25 ng/mL, PPX (Propoxyphene): 300 ng/mL, THC (Cannabinoids): 50 ng/mL, TCA (Trycyclic Antidepressants): 300 ng/mL Performed By: #### P HVEN #### [facility] [address] [place] [address] Dr. Marta Ashford DRUG CUT HEADER DRUG CLASS TEST SYSTEM CUT-OFF CONCENTRATIONS ARE FOLLOWS: Normal [facility] Comment on above: Performed By: #### P HVEN #### [facility] [address] [address] [address] Marta Ashford mAMP Negative Normal NEGATIVE [facility] Comment on above: Performed By: #### P HVEN #### [facility] [address] [place] [address] [address] Marta Ashford MTD Negative Normal NEGATIVE [facility] Comment on above: Performed By: #### P HVEN #### [facility] [address] [place] [address] [address] Marta Ashford OPI Negative Normal NEGATIVE [facility] Comment on above: Performed By: #### P HVEN #### [facility] [address] [place] [address] [address] Marta Ashford OXY Negative Normal NEGATIVE [facility] Comment on above: Performed By: #### P HVEN #### [facility] [address] [place] [address] [address] Marta Ashford PCP Negative Normal NEGATIVE [facility] Comment on above: Performed By: #### P HVEN #### [facility] [address] [place] [address] [address] Marta Ashford PPX Negative Normal NEGATIVE [facility] Comment on above: Performed By: #### P HVEN #### [facility] [address] [place] [address] [address] Marta Ashford TCA Negative Normal NEGATIVE [facility] Comment on above: Performed By: #### P HVEN #### [facility] [address] [place] [address] [address] Marta Ashford THC Negative Normal NEGATIVE [facility] Comment on above: Performed By: #### P HVEN #### [facility] [address] [place] [address] [address] Marta Ashford ER URINE PROFILEon 2 Bilirubin Ql (U) Negative Normal NEGATIVE [facility] Comment on above: Performed By: #### A 1C #### [facility] [address] [place] [address] [address] Marta Ashford Clarity (U) SL CLOUDY Abnormal CLEAR [facility] Comment on above: Performed By: #### A 1C #### [facility] [address] [place] [address] Dr. Marta Ashford Color (U) YELLOW Normal YELLOW [facility] Comment on above: Performed By: #### A 1C #### [facility] [address] [place] [address] Dr. Marta DUDLEY A micrscopic examination will be performed if indicated. Normal [facility] Comment on above: Performed By: #### A 1C #### [facility] [address] [place] [address] [address] Marta Ashford Glucose Ql (U) 1000 mg/dl Abnormal NEGATIVE The [facility] Comment on above: Performed By: #### A 1C #### [facility] [address] [place] [address] Dr. Marta Ashford Hemoglobin Ql (U) SMALL Abnormal NEGATIVE [facility] Comment on above: Performed By: #### A 1C #### [facility] [address] [place] [address] Dr. Marta Ashford Ketones Ql (U) Negative Normal NEGATIVE [facility] Comment on above: Performed By: #### A 1C #### [facility] [address] [place] [address] Dr. Marta Ashford LEUKOCYTES SMALL Abnormal NEGATIVE [facility] Comment on above: Performed By: #### A 1C #### [facility] [address] [place] [address] Dr. Marta Ashford Nitrite Ql (U) Positive Abnormal NEGATIVE The [facility] Comment on above: Performed By: #### A 1C #### [facility] [address] [place] [address] Dr. Marta Ashford pH (U) 5.5 [pH] Normal 5-9 [facility] Comment on above: Performed By: #### A 1C #### [facility] [address] [place] [address] Dr. Marta Ashford SPEC GRAVITY 1.020 Normal 1.005-<=1.02 5 [facility] Comment on above: Performed By: #### A 1C #### [facility] [address] [place] [address] Dr. Marta Ashford UA PROTEIN TRACE Normal NEGATIVE/ TRACE [facility] Comment on above: Performed By: #### A 1C #### [facility] [address] [place] [address] Dr. Marta Ashford UR MICRO IND INDICATED Normal [facility] Comment on above: Performed By: #### A 1C #### [facility] [address] [place] [address] Dr. Marta Ashford Urobilinogen Qn (U) 0.2 {Brad'U}/dL Normal 0.2 - 1. 0 [facility] Comment on above: Performed By: #### A 1C #### [facility] [address] [place] [address] Dr. Marta Ashford LACTATE/LACTIC ACIDon 2021 Lactate [Moles/Vol] 4.1 mmol/L Critically high 0.7-2.0 [facility] Comment on above: Result Comment: test repeated Performed By: #### L ACT #### [facility] [address] [place] [address] Dr. Marta Ashford Lactate [Moles/Vol] 4.1 mmol/L Critically high 0.7-2.0 [facility] Comment on above: Result Comment: test repeated Performed By: #### L ACT #### [facility] [address] [place] [address] Dr. Marta Ashford OCC BLD IMMUNOASSAYon 2021 OCCULT BLOOD Negative Normal NEGATIVE [facility] Comment on above: Performed By: #### A 1C #### [facility] [address] [place] [address] Dr. Marta Ashford PH VENOUS BLOODon 08-16-2021 PCO2 VENOUS 30.8 mmHg Critically low 40.0-52.0 [facility] Comment on above: Performed By: #### P HVEN #### [facility] [address] [place] [address] Dr. Marta Ashford pH VENOUS 7.400 Normal 7.330-7.430 [facility] Comment on above: Performed By: #### P HVEN #### [facility] [address] [address] [address] Marta Ashford POINT OF CARE GLUCOSEon Glucose [Mass/Vol] 214 mg/dL Critically high [address] [place] [address] Comment on above: Performed By: #### C BCMAN #### [facility] [address] [address] [address] Marta Ashford Glucose [Mass/Vol] 275 mg/dL Critically high [address] [place] [address] Comment on above: Performed By: #### P HVEN #### [facility] [address] [address] [address] Marta Ashford Glucose [Mass/Vol] 366 mg/dL Critically high [address] [place] [address] Comment on above: Performed By: #### A 1C #### [facility] [address] [address] [address] Marta Ashford Glucose [Mass/Vol] 168 mg/dL Critically high [address] [place] [address] Comment on above: Performed By: #### P OCGLUC #### [facility] [address] [address] [address] Marta Ashford Glucose [Mass/Vol] 214 mg/dL Critically high [address] [place] [address] Comment on above: Performed By: #### A 1C #### [facility] [address] [address] [address] Marta Ashford PROF CHEM 8 (BAS METB)on Anion gap [Moles/Vol] 17.4 mmol/L Normal [facility] Comment on above: Performed By: #### P HVEN #### [facility] [address] [address] [address] Marta Ashford Calcium [Mass/Vol] 7.3 mg/dL Critically low 8.5-10.1 [facility] Comment on above: Performed By: #### P HVEN #### [facility] [address] [address] [address] Marta Ashford Chloride [Moles/Vol] 108 mmol/L Critically high 98-107 [facility] Comment on above: Performed By: #### P HVEN #### [facility] [address] [address] [address] Marta Ashford CO2 [Moles/Vol] 20.7 mmol/L Critically low 22.0-30.0 [facility] Comment on above: Performed By: #### P HVEN #### [facility] [address] [address] [address] Marta Ashford Creatinine [Mass/Vol] 1.32 mg/dL Critically high 0.66-1.25 [facility] Comment on above: Performed By: #### P HVEN #### [facility] [address] [address] [address] Marta Ashford EGFR-AF KITTITIAN >60 Normal >=60 [facility] Comment on above: Performed By: #### P HVEN #### [facility] [address] [address] [address] Marta Ashford EGFR-NON AF KITTITIAN 56 mL/min/1.73m2 Critically low >=60 [facility] Comment on above: Performed By: #### P HVEN #### [facility] [address] [address] [address] Marta Ashford Glucose [Mass/Vol] 189 mg/dL Critically high 74-106 [facility] Comment on above: Performed By: #### P HVEN #### [facility] [address] [address] [address] Marta Ashford Potassium [Moles/Vol] 3.1 mmol/L Critically low 3.4-5.0 [facility] Comment on above: Performed By: #### P HVEN #### [facility] [address] [address] [address] Marta Ashford Sodium [Moles/Vol] 143 mmol/L Normal 137-[address] [facility] Comment on above: Performed By: #### P HVEN #### [facility] [address] [address] [address] Marta Ashford Urea nitrogen [Mass/Vol] 25.0 mg/dL Critically high 7.0-18.0 [facility] Comment on above: Performed By: #### P HVEN #### [facility] [address] [address] [address] Marta Ashford Urea nitrogen/Creatinine [Mass ratio] 18.9 mg/mg Normal [facility] Comment on above: Performed By: #### P HVEN #### [facility] [address] [address] [address] Marta Ashford Anion gap [Moles/Vol] 17.1 mmol/L Normal [facility] Comment on above: Performed By: #### C BCMAN #### [facility] [address] [address] [address] Marta Ashford Calcium [Mass/Vol] 8.2 mg/dL Critically low 8.5-10.1 [facility] Comment on above: Performed By: #### C JIMENA #### [facility] [address] [address] [address] Marta Ashford Chloride [Moles/Vol] 104 mmol/L Normal 98-107 [facility] Comment on above: Performed By: #### C JIMENA #### [facility] [address] [address] [address] Marta Ashford CO2 [Moles/Vol] 23.4 mmol/L Normal 22.0-30.0 [facility] Comment on above: Performed By: #### C JIMENA #### [facility] [address] [address] [address] Marta Ashford Creatinine [Mass/Vol] 1.17 mg/dL Normal 0.66-1.25 [facility] Comment on above: Performed By: #### C BCVALERY #### [facility] [address] [address] [address] Marta Ashford EGFR-AF KITTITIAN >60 Normal >=60 [facility] Comment on above: Performed By: #### C BCVALERY #### [facility] [id number] Marta Ashford EGFR-NON AF KITTITIAN >60 Normal >=60 [facility] Comment on above: Performed By: #### C BCVALERY #### [facility] [address] [address] [address] Marta Ashford Glucose [Mass/Vol] 215 mg/dL Critically high 74-106 [facility] Comment on above: Performed By: #### C JIMENA #### [facility] [address] [place] [address] Dr. Marta Ashford Potassium [Moles/Vol] 3.5 mmol/L Normal 3.4-5.0 [facility] Comment on above: Performed By: #### C JIMENA #### [facility] [address] [address] [address] Marta Ashford Sodium [Moles/Vol] 141 mmol/L Normal 137-[address] [facility] Comment on above: Performed By: #### C JIMENA #### [facility] [address] [place] [address] Dr. Marta Ashford Urea nitrogen [Mass/Vol] 23.0 mg/dL Critically high 7.0-18.0 [facility] Comment on above: Performed By: #### C JIMENA #### [facility] [address] [place] [address] Dr. Marta Ashford Urea nitrogen/Creatinine [Mass ratio] 19.7 mg/mg Normal [facility] Comment on above: Performed By: #### C JIMENA #### [facility] [address] [place] [address] Dr. Marta Ashford URINE MICROSCOPIC ONLYon BACTERIA MODERATE Abnormal NONE SEEN [facility] Comment on above: Performed By: #### A 1C #### [facility] [address] [place] [address] Dr. Marta Ashford Bacteria identified Cx Nom (U) INDICATED Normal [facility] Comment on above: Performed By: #### A 1C #### [facility] [address] [place] [address] Dr. Marta Ashford CAST NONE SEEN Normal NONE SEEN [facility] Comment on above: Performed By: #### A 1C #### [facility] [address] [place] [address] Dr. Marta Ashford Crystals LM Nom (Urine sed) NONE SEEN Normal NONE SEEN [facility] Comment on above: Performed By: #### A 1C #### [facility] [address] [place] [address] Dr. Marta Ashford Epithelial cells LM Ql (Urine sed) NONE SEEN Normal NONE SEEN /RARE [facility] Comment on above: Performed By: #### A 1C #### [facility] [address] [place] [address] Dr. Marta Ashford MUCOUS NONE SEEN Normal NONE SEEN [facility] Comment on above: Performed By: #### A 1C #### [facility] [address] [place] [address] Dr. Marta Ashford RBC 0-2 Normal 0-2 [facility] Comment on above: Performed By: #### A 1C #### [facility] [address] [place] [address] Dr. Marta Ashford WBC 10-20 Abnormal NONE SEEN [facility] Comment on above: Performed By: #### A 1C #### [facility] [address] [place] [address] Dr. Marta Ashford XR CHEST 2 Von [...] KIZZY SINHA Date: 2021-08-16 03:11 Normal [facility] Glucose Poct Glucometerson 0 01-28-2021 Commemt1 Glu2: Cleaned Meter Normal [facility] Comment on above: Result Comment: PERF ORMED BY: [facility] [address] [place] [address] PATHOLOGIST ASSISTANT SCIENTIST PER TEIXEIRA M.D. Performed By: #### G LULS #### Point of Care testing , Glucose [Mass/Vol] 259 mg/dL Normal [facility] Comment on above: Result Comment: [place] Glucose Reference Range is dependent on time and content of last meal. Glucose of more than 200 mg/dL in a nonstressed, ambulatory subject supports the diagnosis of Diabetes Mellitus. Performed By: #### G DANIELLE #### Point of Care testing , Franco 01-28-2021 L - -------- Specimen: [id number] Received: 01/28/21 Status: MORENO Spencer Num: [id number] Spec Type: Surgical Subm Dr: Oskar Johnson MD Tissues: A Duodenum - Biopsy (DUODENAL BX) B Esophagus Biopsy (ESOPHAGUS BX) C Colon Biopsy (COLON BX) Procedures: HE Stain/6, Gross/Micro L4/3 -------- Patient Age/Sex Location Account Attending Physician -------- Mike Badillo 60/M [id number] Oskar Johnson MD -------- SPEC NUM: [id number] RECD: 01/28/21 STATUS: MORENO PATELLina NUM: [id number] PARVIN: 01/28/21- SUBM DR: Oskar Johnson MD ENTERED: 01/28/21 [facility] DR: SPEC TYPE: Surgical DEPT: S ENTERED BY: [id number] RECV BY: [id number] ORDERED: HE Stain/6, Gross/Micro L4/3 ORDERED: HE [...] one cassette labeled A1. (MATILDA/FELICITAS) -------- Specimen: [id number] Received: 01/28/21 Status: CHRISTINAAreli Spencer Num: [id number] Spec Type: Surgical Subm Dr: Oskar Johnson MD Tissues: A Duodenum - Biopsy (DUODENAL BX) B Esophagus Biopsy (ESOPHAGUS BX) C Colon Biopsy (COLON BX) Procedures: HE Stain/6, Gross/Micro L4/3 -------- Patient: JustinoMike [id number] (Continued) -------- Specimen: [id number] Received: 01/28/21 (Continued) Gross Description (Continued) Signed (signature on file) Per Teixeira MD 01/29/211812 -------- Specimen: [id number] Received: 01/28/21 Status: MORENO Spencer Num: [id number] Spec Type: Surgical Subm Dr: Oskar Johnson MD Tissues: A Duodenum - Biopsy (DUODENAL BX) B Esophagus Biopsy (ESOPHAGUS BX) C Colon Biopsy (COLON BX) Procedures: HE Stain/6, Gross/Micro L4/3 -------- Patient: Mike Badillo [id number] (Continued) -------- Specimen: [id number] Received: 01/28/21 (Continued) Gross Description (Continued) B. Received in formalin labeled with the patient's name, number and esophagus biopsy erosions is a 0.3 cm pink tissue fragment. Entirely submitted in one cassette labeled B1. (/) C. Received in formalin labeled with the patient's name, number and surveillance colon biopsy rule out microscopic colitis are 3 miller tissue fragments, 0.1 cm to 0.3 cm. Entirely submitted in one cassette labeled C1. (/) Microscopic Description A. Two glass slides with H E stained material have been examined. The microscopic findings support the above pathologic diagnosis. B. Two glass slides with H E stained material have been examined. The microscopic findings support the above pathologic diagnosis. C. Two glass slides with H E stained material have been examined. The microscopic findings support the above pathologic diagnosis. [id number] -------- -------- Specimen: [id number] Received: 01/28/21 Status: MORENO Spencer Num: [id number] Spec Type: Surgical Subm Dr: Oskar Johnson MD Tissues: A Duodenum - Biopsy (DUODENAL BX) B Esophagus Biopsy (ESOPHAGUS BX) C Colon Biopsy (COLON BX) Procedures: HE Stain/6, Gross/Micro L4/3 -------- Patient: Mike Badillo [id number] (Continued) --- (more content not included)... Normal [facility] Ammoniaon 01-24-2021 Ammonia (P) [Moles/Vol] 30 umol/L Normal 11-35 [facility] Comment on above: Order Comment: Reaso n for Exam Fatty liver;Right sided abdominal pain Result Comment: PERF ORMED BY: [facility] [address] [place] [address] PATHOLOGIST ASSISTANT SCIENTIST PER TEIXEIRA M.D. Performed By: #### P T, AMM, CBC, CMP, HEPATIC #### [facility] [address] COVID-19 FRMCon 01-24-2021 SARS-CoV-2 (COVID-19) RNA NORMA+probe Ql (Unsp spec) Negative Normal Negative [facility] Comment on above: Order Comment: Healt hcare Worker?: N Result Comment: Testing for SARS-CoV-2 by RT-PCR This test was developed and its performance characteristics determined by [employer] and validated at the [facility]. This test has not been FDA [...] is terminated or revoked sooner. PERFORMED BY: [place] [address] PATHOLOGIST ASSISTANT SCIENTIST PER TEIXEIRA M.D. Performed By: #### C OVID 19 [facility] #### [address] Complete Blood Count Auto Di ffon 01-24-2021 Basophils (Bld) [#/Vol] 0.1 10*3/uL Normal 0.0-0.2 [facility] Comment on above: Order Comment: Reaso n for Exam Fatty liver;Right sided abdominal pain Result Comment: PERF ORMED BY: [place] [address] PATHOLOGIST ASSISTANT SCIENTIST PER TEIXEIRA M.D. Performed By: #### P T, AMM, CBC, CMP, HEPATIC #### [address] Basophils/100 WBC (Bld) 0.8 % Normal . [facility] Comment on above: Order Comment: Reaso n for Exam Fatty liver;Right sided abdominal pain Performed By: #### P T, AMM, CBC, CMP, HEPATIC #### [address] Eosinophils (Bld) [#/Vol] 0.2 10*3/uL Normal 0.0-0.45 [facility] Comment on above: Order Comment: Reaso n for Exam Fatty liver;Right sided abdominal pain Performed By: #### P T, AMM, CBC, CMP, HEPATIC #### [address] Eosinophils/100 WBC (Bld) 1.7 % Normal . [facility] Comment on above: Order Comment: Reaso n for Exam Fatty liver;Right sided abdominal pain Performed By: #### P T, AMM, CBC, CMP, HEPATIC #### [address] Erythrocyte distribution width (RBC) [Ratio] 13.3 % Normal 12.0-14.8 [facility] Comment on above: Order Comment: Reaso n for Exam Fatty liver;Right sided abdominal pain Performed By: #### P T, AMM, CBC, CMP, HEPATIC #### [address] Hematocrit (Bld) [Volume fraction] 40.9 % Normal 38.8-50.0 [facility] Comment on above: Order Comment: Reaso n for Exam Fatty liver;Right sided abdominal pain Performed By: #### P T, AMM, CBC, CMP, HEPATIC #### [address] Hemoglobin (Bld) [Mass/Vol] 14.3 g/dL Normal 13.0-17.0 [facility] Comment on above: Order Comment: Reaso n for Exam Fatty liver;Right sided abdominal pain Performed By: #### P T, AMM, CBC, CMP, HEPATIC #### [place] [address] [place] Lymphocytes (Bld) [#/Vol] 3.7 10*3/uL Normal 1.00-4.8 [facility] Comment on above: Order Comment: Reaso n for Exam Fatty liver;Right sided abdominal pain Performed By: #### P T, AMM, CBC, CMP, HEPATIC #### [address] Lymphocytes/100 WBC (Bld) 37.8 % Normal . [facility] Comment on above: Order Comment: Reaso n for Exam Fatty liver;Right sided abdominal pain Performed By: #### P T, AMM, CBC, CMP, HEPATIC #### [facility] [address] [place] [address] MCH (RBC) [Entitic mass] 32.6 pg Normal 27.5-35.2 [facility] Comment on above: Order Comment: Reaso n for Exam Fatty liver;Right sided abdominal pain Performed By: #### P T, AMM, CBC, CMP, HEPATIC #### [address] MCV (RBC) [Entitic vol] 93.2 fL Normal 83.5-101 [facility] Comment on above: Order Comment: Reaso n for Exam Fatty liver;Right sided abdominal pain Performed By: #### P T, AMM, CBC, CMP, HEPATIC #### [address] Mean Corpuscular HGB Conc 35.0 g/dL Normal 32.5-35.6 [facility] Comment on above: Order Comment: Reaso n for Exam Fatty liver;Right sided abdominal pain Performed By: #### P T, AMM, CBC, CMP, HEPATIC #### [address] Monocytes (Bld) [#/Vol] 0.8 10*3/uL Normal 0.0-0.8 [facility] Comment on above: Order Comment: Reaso n for Exam Fatty liver;Right sided abdominal pain Performed By: #### P T, AMM, CBC, CMP, HEPATIC #### [facility] [address] [place] [address] Monocytes/100 WBC (Bld) 7.9 % Normal . [facility] Comment on above: Order Comment: Reaso n for Exam Fatty liver;Right sided abdominal pain Performed By: #### P T, AMM, CBC, CMP, HEPATIC #### [address] Neutrophils (Bld) [#/Vol] 5.0 10*3/uL Normal 1.8-7.7 [facility] Comment on above: Order Comment: Reaso n for Exam Fatty liver;Right sided abdominal pain Performed By: #### P T, AMM, CBC, CMP, HEPATIC #### [facility] [address] Neutrophils/100 WBC (Bld) 51.8 % Normal . [facility] Comment on above: Order Comment: Reaso n for Exam Fatty liver;Right sided abdominal pain Performed By: #### P T, AMM, CBC, CMP, HEPATIC #### [facility] [address] Nucleated RBC/100 WBC (Bld) [Ratio] 0.1 % Normal 0-0.5 [facility] Comment on above: Order Comment: Reaso n for Exam Fatty liver;Right sided abdominal pain Performed By: #### P T, AMM, CBC, CMP, HEPATIC #### [address] Platelet mean volume (Bld) [Entitic vol] 10.0 fL Normal 6.6-10.1 [facility] Comment on above: Order Comment: Reaso n for Exam Fatty liver;Right sided abdominal pain Performed By: #### P T, AMM, CBC, CMP, HEPATIC #### [address] Platelets (Bld) [#/Vol] 147 10*3/uL Low 150-450 [facility] Comment on above: Order Comment: Reaso n for Exam Fatty liver;Right sided abdominal pain Performed By: #### P T, AMM, CBC, CMP, HEPATIC #### [facility] [address] RBC (Bld) [#/Vol] 4.39 10*6/uL Normal 3.90-5.60 [facility] Comment on above: Order Comment: Reaso n for Exam Fatty liver;Right sided abdominal pain Performed By: #### P T, AMM, CBC, CMP, HEPATIC #### [address] WBC (Bld) [#/Vol] 9.7 10*3/uL Normal 4.5-11.0 [facility] Comment on above: Order Comment: Reaso n for Exam Fatty liver;Right sided abdominal pain Performed By: #### P T, AMM, CBC, CMP, HEPATIC #### [facility] [address] Comprehensive Metabolic Pane franco 01-24-2021 Albumin [Mass/Vol] 3.7 g/dL Normal 3.2-5.5 [facility] Comment on above: Order Comment: Reaso n for Exam Fatty liver;Right sided abdominal pain Performed By: #### P T, AMM, CBC, CMP, HEPATIC #### [facility] [address] Albumin/Globulin [Mass ratio] 1.2 {ratio} Normal [facility] Comment on above: Order Comment: Reaso n for Exam Fatty liver;Right sided abdominal pain Performed By: #### P T, AMM, CBC, CMP, HEPATIC #### [facility] [address] [place] [address] ALP [Catalytic activity/Vol] 54 U/L Normal 32-92 [facility] Comment on above: Order Comment: Reaso n for Exam Fatty liver;Right sided abdominal pain Performed By: #### P T, AMM, CBC, CMP, HEPATIC #### [facility] [address] [place] [address] ALT [Catalytic activity/Vol] 41 U/L Normal 10-60 [facility] Comment on above: Order Comment: Reaso n for Exam Fatty liver;Right sided abdominal pain Performed By: #### P T, AMM, CBC, CMP, HEPATIC #### [facility] [address] [place] [address] AST [Catalytic activity/Vol] 30 U/L Normal 10-42 [facility] Comment on above: Order Comment: Reaso n for Exam Fatty liver;Right sided abdominal pain Performed By: #### P T, AMM, CBC, CMP, HEPATIC #### [facility] [address] [place] [address] Bilirubin [Mass/Vol] 0.5 mg/dL Normal 0.3-1.2 [facility] Comment on above: Order Comment: Reaso n for Exam Fatty liver;Right sided abdominal pain Performed By: #### P T, AMM, CBC, CMP, HEPATIC #### [facility] [address] Calcium [Mass/Vol] 9.4 mg/dL Normal 8.2-10.2 [facility] Comment on above: Order Comment: Reaso n for Exam Fatty liver;Right sided abdominal pain Performed By: #### P T, AMM, CBC, CMP, HEPATIC #### [facility] [address] Chloride [Moles/Vol] 102 mmol/L Normal 95-114 [facility] Comment on above: Order Comment: Reaso n for Exam Fatty liver;Right sided abdominal pain Performed By: #### P T, AMM, CBC, CMP, HEPATIC #### [facility] [address] CO2 [Moles/Vol] 25.0 mmol/L Normal 22.0-30.0 [facility] Comment on above: Order Comment: Reaso n for Exam Fatty liver;Right sided abdominal pain Performed By: #### P T, AMM, CBC, CMP, HEPATIC #### [facility] [address] Creatinine [Mass/Vol] 0.86 mg/dL Normal 0.64-1.27 [facility] Comment on above: Order Comment: Reaso n for Exam Fatty liver;Right sided abdominal pain Performed By: #### P T, AMM, CBC, CMP, HEPATIC #### [facility] [address] Estimated GFR ( Lillie > 60 [facility] Comment on above: Order Comment: Reaso n for Exam Fatty liver;Right sided abdominal pain Result Comment: GFR estimated reference range: According to KDOQI guidelines, <60 ml/min/1.73m2 is sufficient to diagnose a patient with chronic kidney disease. Performed By: #### P T, AMM, CBC, CMP, HEPATIC #### [facility] [address] Estimated GFR (Non- Am > 60 [facility] Comment on above: Order Comment: Reaso n for Exam Fatty liver;Right sided abdominal pain Performed By: #### P T, AMM, CBC, CMP, HEPATIC #### [facility] [address] Globulin (S) [Mass/Vol] 3.0 g/dL Normal [facility] Comment on above: Order Comment: Reaso n for Exam Fatty liver;Right sided abdominal pain Performed By: #### P T, AMM, CBC, CMP, HEPATIC #### [facility] [address] Glucose [Mass/Vol] 223 mg/dL High 70-100 [facility] Comment on above: Order Comment: Reaso n for Exam Fatty liver;Right sided abdominal pain Result Comment: [facility] Glucose Reference Range is dependent on time and content of last meal. Glucose of more than 200 mg/dL in a nonstressed, ambulatory subject supports the diagnosis of Diabetes Mellitus. ADA recommended reference range Performed By: #### P T, AMM, CBC, CMP, HEPATIC #### [facility] [address] [place] [address] Potassium [Moles/Vol] 4.5 mmol/L Normal 3.5-5.1 [facility] Comment on above: Order Comment: Reaso n for Exam Fatty liver;Right sided abdominal pain Performed By: #### P T, AMM, CBC, CMP, HEPATIC #### [facility] [address] Protein [Mass/Vol] 6.7 g/dL Normal 6.1-7.9 [facility] Comment on above: Order Comment: Reaso n for Exam Fatty liver;Right sided abdominal pain Performed By: #### P T, AMM, CBC, CMP, HEPATIC #### [facility] [address] Sodium [Moles/Vol] 139 mmol/L Normal 136-146 [facility] Comment on above: Order Comment: Reaso n for Exam Fatty liver;Right sided abdominal pain Performed By: #### P T, AMM, CBC, CMP, HEPATIC #### [facility] [address] Urea nitrogen [Mass/Vol] 14 mg/dL Normal 9-23 [facility] Comment on above: Order Comment: Reaso n for Exam Fatty liver;Right sided abdominal pain Performed By: #### P T, AMM, CBC, CMP, HEPATIC #### [facility] [address] Hepatic Panelon 01-24-2021 Bilirubin,Indirect Not performed Normal [facility] Comment on above: Order Comment: Reaso n for Exam Fatty liver;Right sided abdominal pain Result Comment: PERF ORMED BY: [place] [address] PATHOLOGIST ASSISTANT SCIENTIST PER TEIXEIRA M.D. Performed By: #### P T, AMM, CBC, CMP, HEPATIC #### [facility] [address] [place] [address] Bilirubin.indirect [Mass/Vol] mg/dL Normal 0.0-0.4 [facility] Comment on above: Order Comment: Reaso n for Exam Fatty liver;Right sided abdominal pain Performed By: #### P T, AMM, CBC, CMP, HEPATIC #### [facility] [address] [place] [address] Prothrombin Time INRon 01-24 INR Coag (PPP) [Relative time] 1.0 {INR} Normal [facility] Comment on above: Order Comment: Reaso [...] heart valves: 3 - 4.5 PERFORMED BY: [place] [address] PATHOLOGIST ASSISTANT SCIENTIST PER TEIXEIRA M.D. Performed By: #### P T, AMM, CBC, CMP, HEPATIC #### [facility] [address] [place] [address] PT Coag (PPP) [Time] 11.7 s Normal 9.0-12.9 [facility] Comment on above: Order Comment: Reaso n for Exam Fatty liver;Right sided abdominal pain Performed By: #### P T, AMM, CBC, CMP, HEPATIC #### [facility] [address] [id number] [facility] Vital Signs Date Time Vital Sign Value Performing Clinician Facility 02-19-2024 09:55-0400 Body height 162.6 cm Markos Arellano MD Work Phone: [facility] 02-19-2024 09:55-0400 Body mass index (BMI) [Ratio] 38.45 kg/m2 Markos Arellano MD Work Phone: [facility] 02-19-2024 09:55-0400 Body temperature 97.5 [degF] Markos Arellano MD Work Phone: [facility] 02-19-2024 09:55-0400 Body weight 101.61 kg Markos Arellano MD Work Phone: [facility] 02-19-2024 09:55-0400 Diastolic blood pressure 86 mm[Hg] Markos Arellano MD Work Phone: [facility] 02-19-2024 09:55-0400 Heart rate 75 /min Markos Arellano MD Work Phone: [facility] 02-19-2024 09:55-0400 Respiratory rate 20 /min Markos Arellano MD Work Phone: [facility] 02-19-2024 09:55-0400 SaO2% (BldA) [Mass fraction] 93 % Markos Arellano MD Work Phone: [facility] 02-19-2024 09:55-0400 Systolic blood pressure 150 mm[Hg] Markos Arellano MD Work Phone: [facility] 06-11-2021 16:00-0500 Body height 162.56 cm Girma Tan Other [employer] Other 06-11-2021 16:00-0500 Body mass index (BMI) [Ratio] 39.75 kg/m2 Girma Tejedadiff Other [employer] Other 06-11-2021 16:00-0500 Body weight 105.05 kg Girma Tan Other [employer] Other 06-11-2021 16:00-0500 Diastolic blood pressure 89 mm[Hg] Girma Tejedadiff Other [employer] Other 06-11-2021 16:00-0500 Respiratory rate 18 /min Girma Tejedadiff Other [employer] Other 06-11-2021 16:00-0500 SaO2% (BldA) [Mass fraction] 99 % Girma Tejedadiff Other [employer] Other 06-11-2021 16:00-0500 Systolic blood pressure 158 mm[Hg] Girma Tejedadiff Other [employer] Other 03-07-2021 15:30-0400 Body height 162.56 cm Oskar Johnson Other [employer] Other 03-07-2021 15:30-0400 Body mass index (BMI) [Ratio] 39.48 kg/m2 Oskar Johnson Other [employer] Other 03-07-2021 15:30-0400 Body weight 104.33 kg Oskar Johnson Other [employer] Other Encounters Encounter Date Encounter Type Care Provider Facility Start: 02-19-2024 End: 02-19-2024 Bessie Connorserer MD Work Phone: [facility] Start: 02-19-2024 End: 02-19-2024 Bamboo flowsheet Markos Arellano MD Work Phone: [facility] Start: 02-19-2024 End: 02-19-2024 Patient encounter procedure Markos Arellano MD Work Phone: [facility] Work Phone: Start: 02-19-2024 End: 02-19-2024 Periodic preventive med est patient 40-64yrs Markos Arellano MD Work Phone: [facility] Comment on above: Annual physical exam (Primary Dx); Type 2 diabetes mellitus with hyperglycemia, without long-term current use of insulin (CMS/HCC); Essential hypertension, benign (CMS/HCC); Right upper quadrant abdominal pain; Body mass index (BMI) 37.0-37.9, adult Start: 02-19-2024 End: 02-19-2024 ambulatory MARKOS ARELLANO Not Available Start: 01-22-2024 End: 01-22-2024 ambulatory MARKOS ARELLANO Not Available Start: 12-11-2023 End: 12-11-2023 ambulatory MARKOS ARELLANO Not Available Start: 07-01-2023 End: 07-01-2023 ambulatory MARKOS ARELLANO Not Available Start: 08-01-2022 End: 08-02-[address] MARKOS ARELLANO Facility:[facility] Start: 03-13-2022 End: 03-14-[address] MARKOS ARELLANO Facility:[facility] Start: 09-12-2021 Encounter for genera l adult medical examination without abnormal findings DR MARKOS ARELLANO [facility] Start: 09-10-2021 End: 09-11-[address] MARKOS ARELLANO Facility:[facility] Start: 09-10-2021 End: 09-11-2021 Encounter for general adult medical examination without abnormal findings DR MARKOS ARELLANO Facility:[facility] Start: 08-16-2021 End: 08-18-2021 Evaluation and management of inpatient DR ANNA THACKER Facility:[facility] Start: 07-02-2021 End: 07-02-2021 ambulatory Girma Tan Other [employer] Other Start: 07-02-2021 Telephone encounter Girma [facility] Start: 06-24-2021 End: 06-24-2021 ambulatory Girma Tan Other [employer] Other Start: 06-24-2021 Telephone encounter Girma Chang [facility] [employer] Start: 06-11-2021 End: 06-11-2021 ambulatory Girma Tna Other [employer] Other Start: 06-11-2021 Nutrition therapy Girmamaye Garcia [facility] Start: 03-18-2021 End: 03-18-2021 ambulatory Stacie Rhyst Other [employer] Other Start: 03-18-2021 Telephone encounter Stacietomi oJinerareli Radha [facility] Start: 03-07-2021 Office outpatient visit 25 minutes Oskar [facility] Procedures Date Procedure Procedure Detail Performing Clinician Start: 09-10-[address] MARKOS MCINTOSH Comment on above: Performed By: #### [facility] #### [facility] [address] [address] [address] Marta Ashford Start: 01-28-2021 Colonoscopy Markos gómez MD Work Phone: Plan of Treatment Date Care Activity Detail Author Start: 01-28-2031 Screening for malign ant neoplasm of colon [facility] Start: 10-01-2025 Glaucoma screening Diabetes: R etinopathy Screening [facility] Start: 12-24-2024 Urine screening for protein Diabetes: Urine Protein Screening [facility] Start: 06-26-2024 Hemoglobin A1c measurement Diabetes: Hemoglobin A1C [facility] Start: 05-27-2024 End: 05-27-2024 Patient encounter procedure 05/27/2024 9:00 AM EST Office Visit [facility] [address] [place] [phone] Markos Arellano MD [address] [place] [phone] [facility] Start: 02-19-2024 End: 02-19-2024 Patient encounter procedure 02/19/2024 9:45 AM EDT Office Visit [facility] [address] [place] [phone] Markos Arellano MD [address] [place] [address] Arrived [facility] Comment on above: Arrived Start: 01-10-2024 Influenza vaccination Influenza Vacc ine (#1) [facility] Start: 1981 Urine screening for protein Diabetes: Urine Protein Screening [facility] Start: 1960 Hemoglobin A1c measurement Diabetes: Hemoglobin A1C [facility] Start: 1960 Screening for malign ant neoplasm of colon [facility] Immunizations Immunization Date Immunization Notes Care Provider Fa cility 02-18-2023 influenza virus vacc ine, unspecified formulation Markos Arellano MD Work Phone: [facility] Payers Date Payer Category Payer Private Health Insurance [facility] [id number] 2021-Present [address] [address] [place] [address] [id number] 1962 Unknown [id number] .[id number] 1960 Unknown [id number] .[id number] 1962 Unknown [id number] .2.593 1962 Unknown [id number] .[id number] 1962 Unknown [id number] .2.1259 1962 Unknown [id number] [id number] .2.1259 1962 Unknown [id number] [id number] .2.1259 1960 Unknown [id number] .[id number] 1959 Unknown [id number] Social History Date Type Detail Facility Start: 01-22-2024 End: 02-19-2024 Sex Assigned At [facility] [employer] Other Start: 07-01-2023 Tobacco smoking status SCIS Never smoked tobacco [facility] Start: 07-01-2023 Tobacco use and exposure Smokeless tobacco non-user [facility] Start: 01-22-2024 End: 02-19-2024 History of Social function [facility] Start: 1960 Sex assigned at Not on file [facility] Medical Equipment Procedure Code Equipment Code Equipment Origin al Text Equipment Identifier Dates 1 each by Other route if needed (1x daily) Use as instructed [id number] Start: 04-30-2023 History of Present illness Narrative 02-19-2024 Markos Arellano MD - 02/19/2024 10:28 AM Joao Arellano MD - 02/19/2024 10:27 AM Joao Arellano MD - 02/19/2024 10:27 AM Joao Arellano MD - 02/19/2024 10:27 AM EDT Note Date & Type Note Facility 02-19-2024 History of Presen t illness Narrative Associated Problem(s): Right upper quadrant abdominal pain Continued pain and check HIDA. Associated Problem(s): Type 2 diabetes mellitus with hyperglycemia, without long-term current use of insulin (CMS/HCC) Reports BS improved and take meds daily. Stick to ADA diet and limit carbs. Associated Problem(s): Essential hypertension, benign (CMS/HCC) BP elevated today but reports controlled at home and continue to monitor PRN. Associated Problem(s): Annual physical exam Reviewed labs. Discussed proper diet and regular aerobic exercise. Need aerobic exercise 5-6 days a week for 30 minutes at a time. Smaller portions and limit total calories. Colonoscopy every 10 years. Tetanus every 10 years. Advised not to smoke. Discussed daily Aspirin therapy. Images from the original note were not included. Subjective Patient ID: Mike Badillo is a 63 y.o. male who presents for Follow-up (2m f/up /wellness). Presents for annual PE. Weight unchanged over the past year. Active at work and tries to walk several days a week. Tries to watch diet and eat healthy. Increased fruits and vegetables. Smaller portions and limits snacking. Tries to limit total daily calories. Reviewed labs from December. BS improving and around 180. Changed diet and cut back on carbs. Taking medication daily. Denies signs of elevated BS such as polyuria, polyphagia or polydipsia. Checking BP PRN and typically controlled. BP elevated today. Taking medication daily and tolerating without side effects. Continues to have RUQ abdominal pain. US showed dilated bile duct and HIDA scan ordered. Review of Systems Constitutional: Negative for fatigue. Respiratory: Negative for cough, shortness of breath and wheezing. Cardiovascular: Negative for chest pain and palpitations. Gastrointestinal: Negative for abdominal pain, diarrhea, nausea and vomiting. Genitourinary: Negative for dysuria. Objective Physical Exam Constitutional: General: He is not in acute distress. Appearance: Normal appearance. HENT: Head: Normocephalic. Right Ear: Tympanic membrane and ear canal normal. Left Ear: Tympanic membrane and ear canal normal. Eyes: Extraocular Movements: Extraocular movements intact. Pupils: Pupils are equal, round, and reactive to light. Cardiovascular: Rate and Rhythm: Normal rate and regular rhythm. Heart sounds: No murmur heard. No friction rub. No gallop. Pulmonary: Breath sounds: Normal breath sounds. No wheezing, rhonchi or rales. Abdominal: General: Bowel sounds are normal. There is no distension. Palpations: Abdomen is soft. Tenderness: There is no abdominal tenderness. There is no guarding or rebound. Musculoskeletal: General: Normal range of motion. Left lower leg: No edema. Neurological: General: No focal deficit present. Mental Status: He is alert. Cranial Nerves: No cranial nerve deficit. Deep Tendon Reflexes: Reflexes normal. Assessment/Plan Problem List Items Addressed This Visit Essential hypertension, benign (CMS/HCC) BP elevated today but reports controlled at home and continue to monitor PRN. Type 2 diabetes mellitus with hyperglycemia, without long-term current use of insulin (CMS/HCC) Reports BS improved and take meds daily. Stick to ADA diet and limit carbs. Annual physical exam - Primary Reviewed labs. Discussed proper diet and regular aerobic exercise. Need aerobic exercise 5-6 days a week for 30 minutes at a time. Smaller portions and limit total calories. Colonoscopy every 10 years. Tetanus every 10 years. Advised not to smoke. Discussed daily Aspirin therapy. documented in this encounter [facility] Evaluation note 06-11-2021 Note Date & Type [...] Jun, Metabolic syndrome X (ICD-10 - E88.81) [employer] Other Evaluation note 03-07-2021 Note Date & [...] LOSS WILL SEND REFERRAL TO DR. NICE [employer] Other Evaluation note Note Date & Type Note Facility Evaluation note No Information [facility] Other Evaluation note Note Date & Type Note Facility Evaluation note Diagnosis Annual physical exam- Primary Routine general medical examination at a health care facility Type 2 diabetes mellitus with hyperglycemia, without long-term current use of insulin (CMS/HCC) Essential hypertension, benign (CMS/HCC) Essential hypertension, benign Right upper quadrant abdominal pain Body mass index (BMI) 37.0-37.9, adult documented in this encounter [facility] History general Narrative - Reported Note Date & Type Note Facility History general Narrative - Reported Type Medical History Arthritis Medical History [facility] Medical History type II diabetes [employer] Other Reason for Referral Reason FORM -EVAL AND TREAT Diagnosis 1 Fatty liver (K76.0) Referral Organization [facility] Referring Provider First Name Oskar Referring Provider Last Name Elizabeth Referring Provider Specialty Gastroenter ology Referred Organization [facility] Referred Provider Girma Tan Jr. Referred Address [address] [place] [address],[facility],[place], [place],[address] Referred Provider Specialty Internal Med icine Referral [...] FOR VISIT (unrecogniz ed section and content) Reason Comments Follow-up 2m f/up wellness (unrecognized sect ion and content) No Status Records FoundNo Status Records FoundNo Status Records Found INFORMATION SOURCE (unrecogn ized section and content) DATE CREATED AUTHOR 12/10/2021 [facility] DATE CREATED AUTHOR AUTHOR'S ORGANIZ ATION 08/04/2022 [facility] DATE CREATED AUTHOR AUTHOR'S ORGANIZ ATION 02/21/2024 [facility] dical Specialists [employer] Care Teams (unrecognized sec tion and content) Quarter Inspector Relationship Specialty Start Date End Date Markos Arellano MD [address] [place] [phone] PCP - General Family Medicine 06/08/23 Quarter Inspector Relationship Specialty Start Date End Date Markos Arellano MD [address] [place] [phone] PCP - General Family Medicine 06/08/23 FOR RECORDS PERTAINING TO PATIENTS WHO ARE [...] BE BASED ON THE PRIMARY CLINICAL RECORDS. [facility]. provides no warranty or guarantee of the accuracy or completeness of information in this document.
--- NOTE | 2024-02-25 08:20 | NM_ITS ---
The [address] [address] Patient Name: DAVID GUARDADO MRN: [id number] date: 1960 Sex: M Assigned Patient Location: [place] Current Patient Location: [place] Accession/Order Number: [id number] Exam Date: 02/25/2024 08:00 Report Date: 02/25/2024 13:53 At the request of: RENETTA ARELLANO Procedure: MS hepatobiliary w pharm HIDA SCAN WITH GALLBLADDER EJECTION FRACTION HISTORY: Abdominal Pain. COMPARISON: Ultrasound 02/05/2024. METHOD: Following IV injection of 4.8 mCi of [id number], anterior imaging of the abdomen was acquired for 60 minutes. After the gallbladder was visualized the patient was given Ensure and the gallbladder ejection fraction was calculated. FINDINGS: There is satisfactory uptake of radiopharmaceutical by the liver. The gallbladder, bile duct, and bowel are seen in the expected period of time and sequence. The gallbladder ejection fraction is normal at 64%. MS/MS hepatobiliary w pharm IMPRESSION: Normal hepatic biliary scintigraphy and gallbladder ejection fraction. Electronically authenticated by: LIT CRAMER Date: 02/25/2024 13:53
== END 2024-02-25 07:50 | disposition home or self-care (01) ==
LOC: NM 07:50
PROVIDERS: PCP Family Medicine; Visit Provider Family Medicine
DX: R10.11 Right upper quadrant pain (principal)
CPT/HCPCS: 78227; A9537

== ENCOUNTER 2024-03-15 07:00 | Outpatient (OUT) | payer OTHER, SELFPAY ==
--- OUTSIDE RECORDS SUMMARY | 2024-03-15 07:03 | XMS_ITS | CCD ---
Author Organization [facility] Care Team Providers Care Market Research Coordinator Name Role Phone Osakr Johnson Unavailable Stacie Muro Unavailable DominickGirma laura [...] MARKOS Cobb Attending Unavailable NADERER, DR MARKOS oCbb Primary Care Unavailable NADERER, DR MARKOS Cbob Consulting Unavailable FRIEDENSBURG, DR CASTILLO Primary Care Unavailable YOLI ., DR CASTILLO Consulting Unavailable NADERER, DR MARKOS Cobb Admitting Unavailable NADERER, DR MARKOS Cobb Attending Unavailable NADERER, DR MARKOS Cobb Consulting Unavailable STEPHANIE, MISBAH Consulting Unavailable LAITH, SHAIKH Isaac Consulting Unavailable KIZZY SINHA Consulting Unavailable ROVERTO GREENFIELD Consulting Unavailable Markos Arellano MD Primary Care Provider [phone] ADAN, MARKOS Attending Unavailable NADERER, MARKOS Attending Unavailable NADERER, MARKOS Attending Unavailable NADERER, MARKOS Attending Unavailable NADERER, MARKOS Attending Unavailable Medications Current Medications Medication Drug Class(es) Dates Sig (Normalized) Sig (Original) Ascorbic Acid (5 sources) Vitamin C Vitamin C Active glimepiride 4 mg oral tablet (11 sources) Sulfonylurea Start: 12-11-2023 take 1 tablet by mouth in the morning glimepiride (Amaryl) 4 MG tablet Indications: Type 2 diabetes mellitus with hyperglycemia, without long-term current use of insulin ([facility]) Take 1 tablet (4 mg) by mouth [...] Daily Active lisinopril 40 mg oral tablet (11 sources) Angiotensin Converting Enzyme Inhibitor take 1 tablet by mouth in the morning lisinopril 40 MG tablet Take 40 mg by mouth in the morning. Active take 1 tablet by jayda th every twenty-four hours Lisinopril 20 MG 1 tablet Orally Once a day Active metFORMIN hydrochloride 1000 mg oral tablet (11 sources) Biguanide Start: 12-11-2023 take 1 tablet [...] BID Active nabumetone 500 mg oral tablet (6 sources) Nonsteroidal Anti-inflammatory Drug Start: 01-22-2024 take 1 tablet by mouth twice daily as needed for pain nabumetone (Relafen) 500 MG tablet Indications: Acute right-sided low back pain without sciatica Take 1 tablet (500 mg) by mouth 2 (two) times a day as needed for moderate pain 60 tablet 3 01/22/2024 Active omeprazole 40 mg delayed release oral capsule (6 sources) Proton Pump Inhibitor Start: 07-01-2023 take 1 capsule by mouth before mealtime omeprazole (PriLOSEC) [address] capsule Indications: Gastroesophageal reflux disease without esophagitis Take 1 capsule (40 mg) by mouth in the morning. Take before meals. Do not crush or chew.. 90 capsule 3 07/01/2023 Active Semaglutide, 2 MG/DOSE, (Ozempic, 2 MG/DOSE,) 8 MG/3ML solution pen-injector (6 sources) Start: 01-20-2024 inject 2 mg by subcutaneous injection every week Semaglutide, 2 MG/DOSE, (Ozempic, 2 MG/DOSE,) 8 MG/3ML solution pen-injector Indications: Type 2 diabetes mellitus with hyperglycemia, without long-term current use of insulin ([facility]) Inject 2 mg under the skin 1 (one) time per week 3 mL 5 01/20/2024 Active sildenafil 100 mg oral tablet (6 sources) Phosphodiesterase 5 Inhibitor take 1 tablet [...] Problem Date Documented Date Episodic/Chronic Abdominal pain (18 sources) Right upper quadrant pain; Translations: [Right upper quadrant pain] Onset: 03-07-2021 Resolved: 03-07-2021 Episodic Coagulation and hemorrhagic disorders (1 source) Thrombocytopenia, unspecified; Translations: [THROMBOCYTOPENIA UNSPECIFIED] Onset: 08-21-2021 Chronic Diabetes mellitus with complications (20 sources) Disorder due to type 2 diabetes [...] Onset: 03-07-2021 Resolved: 03-07-2021 Chronic Esophageal disorders (11 sources) Gastroesophageal reflux disease; Translations: [Gastro-esophageal reflux disease without esophagitis] Onset: 06-11-2021 Resolved: 06-11-2021 Chronic Essential hypertension (11 sources) Essential (primary) hypertension; Translations: [Benign essential hypertension] Onset: 08-21-2021 02-19-2024 Chronic Immunity disorders (2 sources) Secondary immune deficiency disorder; Translations: [Immunodeficiency due to conditions classified elsewhere ([facility])] 03-08-2024 Chronic Osteoarthritis (4 sources) Osteoarthritis of knee; Translations: [Osteoarthritis of knee, unspecified] Onset: 06-11-2021 Resolved: 06-11-2021 Chronic Other liver diseases (5 sources) Steatosis of liver; Translations: [Fatty (change of) liver, not elsewhere classified] Chronic Other liver diseases (6 sources) Fatty (change of) liver, not elsewhere classified; Translations: [Other chronic nonalcoholic liver disease] Onset: 03-07-2021 Resolved: 06-11-2021 Chronic Other nutritional; endocrine; and metabolic disorders (3 sources) Metabolic syndrome X; Translations: [Metabolic syndrome] Chronic Other nutritional; endocrine; and metabolic disorders (1 source) Metabolic syndrome Onset: 06-11-2021 Resolved: 06-11-2021 Chronic Other nutritional; endocrine; and metabolic disorders (8 sources) Body mass index 30+ - obesity; Translations: [Body mass index (BMI) 37.0-37.9, adult] Onset: 07-01-2023 02-19-2024 Chronic Spondylosis; intervertebral disc disorders; other back problems (6 sources) Acute low back pain; Translations: [Acute right-sided low back pain without sciatica] Onset: 12-11-2023 Resolved: 03-08-2024 01-22-2024 Episodic Unclassified (1 source) CONTACT W/AND [...] Resolved: 03-07-2021 Episodic Other aftercare (1 source) halfway (current) use of oral hypoglycemic drugs; Translations: [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 ORAL HYPOGLYCEMIC DX] Onset: 08-21-2021 Episodic [...] Translations: [Esophagitis K20.90] Onset: 03-07-2021 Resolved: 03-07-2021 Unclassified (4 sources) Non-alcoholic fatty liver disease 03-08-2024 Urinary tract infections (3 sources) Acute pyelonephritis; Translations: [ACUTE PYELONEPHRITIS] Onset: 08-16-2021 Episodic Results Test Name Value Interpretation Reference Range Facility GLYCOHEMOGLOBIN A1Con 2022 ADA RECOMMENDATION SEE BELOW Normal [facility] Comment on above: Result Comment: ADA RECOMMENDED LIMIT 4.0 - 6.0 ADA THERAPEUTIC TARGET < 7.0 ACTION SUGGESTED > 7.0 Performed By: #### C JIMENA #### [facility] [address] [address] [address] Marta Ashford Glucose [Mass/Vol] 243 mg/dL Normal [facility] Comment on above: Performed By: #### C JIMENA #### [facility] [address] [place], [place] [address] Dr. Marta Ashford HbA1c (Bld) [Mass fraction] 10.1 % Critically high 4.5-6.2 [facility] Comment on above: Performed By: #### C BCMAN #### [facility] [address] [place] [address] Dr. Marta Ashford GLYCOHEMOGLOBIN A1Con 2021 ADA RECOMMENDATION SEE BELOW Normal [facility] Comment on above: Result Comment: ADA RECOMMENDED LIMIT 4.0 - 6.0 ADA THERAPEUTIC TARGET < 7.0 ACTION SUGGESTED > 7.0 Performed By: #### A 1C #### [facility] [address] [place] [address] Dr. Marta Ashford Glucose [Mass/Vol] 266 mg/dL Normal [facility] Comment on above: Performed By: #### A 1C #### [facility] [address] [place] [address] Dr. Marta Ashford HbA1c (Bld) [Mass fraction] 10.9 % Critically high 4.5-6.2 [facility] Comment on above: Performed By: #### A 1C #### [facility] [address] [place] [address] Dr. Marta Ashford CBC AUTO DIFFon 09-10-2021 BASO # 0.1 103/ul Normal 0.0-0.1 [facility] Comment on above: Performed By: #### A 1C #### [facility] [address] [place] [address] Dr. Marta Ashford Basophils/100 WBC (Bld) 0.7 % Normal 0.2-2.0 [facility] Comment on above: Performed By: #### A 1C #### [facility] [address] [place] [address] Dr. Marta Ashford EO # 0.3 103/ul Normal 0.0-0.7 [facility] Comment on above: Performed By: #### A 1C #### [facility] [address] [place] [address] Dr. Marta Ashford Eosinophils/100 WBC (Bld) 2.9 % Normal 0.9-7.0 [facility] Comment on above: Performed By: #### A 1C #### [facility] [address] [place] [address] Dr. Marta Ashford Erythrocyte distribution width (RBC) [Ratio] 12.6 % Normal 11.0-15.0 [facility] Comment on above: Performed By: #### A 1C #### [facility] [address] [place] [address] Dr. Marta Ashford Hematocrit (Bld) [Volume fraction] 45.0 % Normal 42.0-54.0 [facility] Comment on above: Performed By: #### A 1C #### [facility] [address] [place] [address] Dr. Marta Ashford Hemoglobin (Bld) [Mass/Vol] 14.4 g/dL Normal 14.0-18.0 [facility] Comment on above: Performed By: #### A 1C #### [facility] [address] [place] [address] Dr. Marta Ashford IG # 0.06 10e3/ul Critically high 0.00-0.03 [facility] [place] Comment on above: Performed By: #### A 1C #### [facility] [address] [place] [address] Dr. Marta Ashford IG % 0.6 % Critically high 0.0-0.5 [facility] Comment on above: Performed By: #### A 1C #### [facility] [address] [place] [address] Dr. Marta Ashford LYMPH # 3.3 103/ul Normal 1.2-3.8 [facility] Comment on above: Performed By: #### A 1C #### [facility] [address] [place] [address] Dr. Marta Ashford Lymphocytes/100 WBC (Bld) 34.5 % Normal 20.5-60.0 [facility] Comment on above: Performed By: #### A 1C #### [facility] [address] [place] [address] Dr. Marta Ashford MANUAL DIFF REQ NO Normal [facility] Comment on above: Performed By: #### A 1C #### [facility] [address] [place] [address] Dr. Marta Ashford MCH (RBC) [Entitic mass] 31.0 pg Normal 25.9-34.0 [facility] Comment on above: Performed By: #### A 1C #### [facility] [address] [place] [address] Dr. Marta Ashford MCHC (RBC) [Mass/Vol] 32.0 g/dL Normal 29.9-35.2 [facility] Comment on above: Performed By: #### A 1C #### [facility] [address] [place] [address] Dr. Marta Ashford MCV (RBC) [Entitic vol] 96.8 fL Critically high 80.0-94.0 [facility] Comment on above: Performed By: #### A 1C #### [facility] [address] [place] [address] Dr. Marta Ashford MONO # 0.7 103/ul Normal 0.3-0.8 [facility] Comment on above: Performed By: #### A 1C #### [facility] [address] [place] [address] Dr. Marta Ashford Monocytes/100 WBC (Bld) 7.8 % Normal 1.7-12.0 [facility] Comment on above: Performed By: #### A 1C #### [facility] [address] [place] [address] Dr. Marta Ashford NEUT # 5.1 103/ul Normal 1.4-6.5 [facility] Comment on above: Performed By: #### A 1C #### [facility] [address] [place] [address] Dr. Marta Ashford Neutrophils/100 WBC (Bld) 53.5 % Normal 43.0-75.[address] [facility] Comment on above: Performed By: #### A 1C #### [facility] [address] [place] [address] Dr. Marta Ashford Platelet mean volume (Bld) [Entitic vol] 12.3 fL Normal 9.5-13.[address] [facility] Comment on above: Performed By: #### A 1C #### [facility] [address] [place] [address] Dr. Marta Ashford PLT 170 103/ul Normal 150-[address] [facility] Comment on above: Performed By: #### A 1C #### [facility] [address] [address] [address] Marta Ashford RBC 4.65 106/ul Critically low 4.70-6.10 [facility] Comment on above: Performed By: #### A 1C #### [facility] [address] [address] [address] Marta Ashford WBC 9.5 103/ul Normal 4.0-11.0 [facility] Comment on above: Performed By: #### A 1C #### [facility] [address] [address] [address] Marta Ashford DIRECT LDLon 09-10-2021 Cholesterol in LDL [Mass/Vol] 96 mg/dL Normal [facility] Comment on above: Performed By: #### C JIMENA #### [facility] [address] [address] [address] Marta Ashford DLDL NORMAL SEE BELOW Normal [facility] Comment on above: Result Comment: <100 mg/dl OPTIMAL 100 - 129 mg/dl NEAR OR ABOVE OPTIMAL 130 - 159 mg/dl BORDERLINE HIGH 160 - 189 mg/dl HIGH >190 mg/dl VERY HIGH Performed By: #### C JIMENA #### [facility] [address] [address] [address] Marta Ashford GLYCOHEMOGLOBIN A1Con 2021 ADA RECOMMENDATION SEE BELOW Normal [facility] Comment on above: Result Comment: ADA RECOMMENDED LIMIT 4.0 - 6.0 ADA THERAPEUTIC TARGET < 7.0 ACTION SUGGESTED > 7.0 Performed By: #### A 1C #### [facility] [address] [address] [address] Marta Ashford Glucose [Mass/Vol] 223 mg/dL Normal [facility] Comment on above: Performed By: #### A 1C #### [facility] [address] [address] [address] Marta Ashford HbA1c (Bld) [Mass fraction] 9.4 % Critically high 4.5-6.2 [facility] Comment on above: Performed By: #### A 1C #### [facility] [address] [address] [address] Marta Ashford LIPID PROFILEon 09-10-2021 CHOL-HDL RATIO NORM SEE BELOW Normal [facility] Comment on above: Result Comment: 3.3 - 4.4 LOW RISK 4.4 - 7.1 AVERAGE RISK 7.1 - 11.0 MODERATE RISK >11.0 HIGH RISK Performed By: #### C JIMENA #### [facility] [address] [address] [address] Marta Ashford Cholesterol [Mass/Vol] 209 mg/dL Critically high <=200 [facility] Comment on above: Performed By: #### C JIMENA #### [facility] [address] [address] [address] Marta Ashford Cholesterol in HDL [Mass/Vol] 34 mg/dL Critically low 40-60 [facility] Comment on above: Performed By: #### C JIMENA #### [facility] [address] [address] [address] Marta Ashford Cholesterol.total/Chol esterol in HDL [Mass ratio] 6.1 {ratio} Normal [facility] Comment on above: Performed By: #### C JIMENA #### [facility] [address] [address] [address] Marta Ashford HDL NORMAL > or = 60 mg/dl - LO W CARDIOVASCULAR RISK <40 mg/dl - HIGH CARDIOVASCULAR RISK Normal [facility] Comment on above: Performed By: #### C JIMENA #### [facility] [address] [address] [address] Marta Ashford LDL CALC NORMAL SEE BELOW Normal [facility] Comment on above: Result Comment: <100 mg/dl OPTIMAL 100 - 129 mg/dl NEAR OR ABOVE OPTIMAL 130 - 159 mg/dl BORDERLINE HIGH 160 - 189 mg/dl HIGH >190 mg/dl VERY HIGH Performed By: #### C JIMENA #### [facility] [address] [address] [address] Marta Ashford Triglyceride [Mass/Vol] 591 mg/dL Critically high <=150 [facility] Comment on above: Performed By: #### C JIMENA #### [facility] [address] [address] [address] Marta Ashford VLDL CALC 118.2 mg/dL Normal [facility] Comment on above: Performed By: #### C JIMENA #### [facility] [address] [place] [address] Dr. Marta Ashford LIVER PROFILEon 09-10-2021 Albumin [Mass/Vol] 3.6 g/dL Normal 3.4-5.0 [facility] Comment on above: Performed By: #### C JIMENA #### [facility] [address] [address] [address] Marta Ashford Albumin/Globulin [Mass ratio] 0.9 {ratio} Normal [facility] Comment on above: Performed By: #### C JIMENA #### [facility] [address] [place] [address] Dr. Marta Ashford ALP [Catalytic activity/Vol] 75 U/L Normal 46-116 [facility] Comment on above: Performed By: #### C JIMENA #### [facility] [address] [place] [address] Dr. Marta Ashford ALT [Catalytic activity/Vol] 40 U/L Normal 16-63 [facility] Comment on above: Performed By: #### C JIMENA #### [facility] [address] [place] [address] Dr. Marta Ashford AST [Catalytic activity/Vol] 24 U/L Normal 15-37 [facility] Comment on above: Performed By: #### C JIMENA #### [facility] [address] [place] [address] Dr. Marta Ashford BILI, CONJUGATED 0.1 mg/dL Normal 0.0-0.2 [facility] Comment on above: Performed By: #### C JIMENA #### [facility] [address] [place] [address] Dr. Marta Ashford Bilirubin [Mass/Vol] 0.3 mg/dL Normal 0.2-1.0 [facility] Comment on above: Performed By: #### C JIMENA #### [facility] [address] [address] [address] Marta Ashford Globulin (S) [Mass/Vol] 4.1 g/dL Normal [facility] Comment on above: Performed By: #### C JIMENA #### [facility] [address] [place] [address] Dr. Marta Ashford Protein [Mass/Vol] 7.7 g/dL Normal 6.1-8.2 [facility] Comment on above: Performed By: #### C JIMENA #### [facility] [address] [place] [address] Dr. Marta Ashford PROF CHEM 8 (BAS METB)on Anion gap [Moles/Vol] 11.0 mmol/L Normal [facility] Comment on above: Performed By: #### C JIMENA #### [facility] [address] [place] [address] Dr. Marta Ashford Calcium [Mass/Vol] 8.6 mg/dL Normal 8.5-10.1 [facility] Comment on above: Performed By: #### C JIMENA #### [facility] [address] [place] [address] Dr. Marta Ashford Chloride [Moles/Vol] 99 mmol/L Normal 98-107 [facility] Comment on above: Performed By: #### C JIMENA #### [facility] [address] [place] [address] Dr. Marta Ashford CO2 [Moles/Vol] 27.0 mmol/L Normal 21.0-32.0 [facility] Comment on above: Performed By: #### C BCVALERY #### [facility] [address] [place] [address] Dr. Marta Ashford Creatinine [Mass/Vol] 1.00 mg/dL Normal 0.70-1.[address] [facility] Comment on above: Performed By: #### C JIMENA #### [facility] [address] [place] [address] Dr. Marta Ashford EGFR-AF GIBRALTARIAN >60 Normal >=60 [facility] Comment on above: Performed By: #### C JIMENA #### [facility] [address] [address] [address] Marta Ashford EGFR-NON AF GIBRALTARIAN >60 Normal >=60 [facility] Comment on above: Performed By: #### C JIMENA #### [facility] [address] [address] [address] Marta Ashford Glucose [Mass/Vol] 289 mg/dL Critically high 74-106 [facility] Comment on above: Performed By: #### C JIMENA #### [facility] [address] [address] [address] Marta Ashford Potassium [Moles/Vol] 4.0 mmol/L Normal 3.5-5.1 [facility] Comment on above: Performed By: #### C JIMENA #### [facility] [address] [address] [address] Marta Ashford Sodium [Moles/Vol] 133 mmol/L Critically low 136-145 [facility] Comment on above: Performed By: #### C JIMENA #### [facility] [address] [address] [address] Marta Ashford Urea nitrogen [Mass/Vol] 21.0 mg/dL Critically high 7.0-18.0 [facility] Comment on above: Performed By: #### C JIMENA #### [facility] [address] [address] [address] Marta Ashford Urea nitrogen/Creatinine [Mass ratio] 21.0 mg/mg Normal [facility] Comment on above: Performed By: #### C JIMENA #### [facility] [address] [address] [address] Marta Ashford TSHon 09-10-2021 TSH 2.331 uIU/mL Normal 0.470-4.680 [facility] Comment on above: Performed By: #### C JIMENA #### [facility] [address] [place] [address] Dr. Marta Ashford TSH RANGE SEE BELOW Normal [facility] Comment on above: Result Comment: <0.3 4 UIU/ml HYPERTHYROID 0.34-5.60 UIU/ml EUTHYROID >5.60 UIU/ml HYPOTHYROID Performed By: #### C BCMAN #### [facility] [address] [place] [address] Dr. Marta Ashford BLOOD CULTURE ID/SENSon 08-09 Aerobe ID + Suscept Final report Abnormal [facility] Comment on above: Performed By: #### C XPOSBL #### [facility] [address] [place] [address] Dr. Marta Ashford Antimicrobial Susceptibility Comment Normal [facility] Comment on above: Result Comment: S = [...] S Performed By: #### C XPOSBL #### [facility] [address] [place] [address] Dr. Marta Ashford Result 1 Comment Abnormal [facility] Comment on above: Result Comment: Esch erichia coli, identified by an automated biochemical system. Received aerobic bottle only. Performed By: #### C XPOSBL #### [facility] [address] [place] [address] Dr. Marta Ashford CBC AUTO DIFFon 08-18-2021 BASO # 0.1 103/ul Normal 0.0-0.1 [facility] Comment on above: Performed By: #### A 1C #### [facility] [address] [place] [address] Dr. Marta Ashford Basophils/100 WBC (Bld) 0.5 % Normal 0.2-2.0 [facility] Comment on above: Performed By: #### A 1C #### [facility] [address] [place] [address] Dr. Marta Ashford EO # 0.1 103/ul Normal 0.0-0.7 [facility] Comment on above: Performed By: #### A 1C #### [facility] [address] [address] [address] Marta Ashford Eosinophils/100 WBC (Bld) 0.8 % Critically low 0.9-7.0 [facility] Comment on above: Performed By: #### A 1C #### [facility] [address] [place] [address] Dr. Marta Ashford Erythrocyte distribution width (RBC) [Ratio] 12.8 % Normal 11.0-15.0 [facility] Comment on above: Performed By: #### A 1C #### [facility] [address] [place] [address] Dr. Marta Ashford Hematocrit (Bld) [Volume fraction] 40.1 % Critically low 42.0-54.0 [facility] Comment on above: Performed By: #### A 1C #### [facility] [address] [place] [address] Dr. Marta Ashford Hemoglobin (Bld) [Mass/Vol] 12.9 g/dL Critically low 14.0-18.0 [facility] Comment on above: Performed By: #### A 1C #### [facility] [address] [place] [address] Dr. Marta Ashford IG # 0.17 10e3/ul Critically high 0.00-0.03 [facility] [place] Comment on above: Performed By: #### A 1C #### [facility] [address] [place] [address] Dr. Marta Ashford IG % 1.0 % Critically high 0.0-0.5 [facility] Comment on above: Performed By: #### A 1C #### [facility] [address] [place] [address] Dr. Marta Ashford LYMPH # 3.3 103/ul Normal 1.2-3.[address] [facility] Comment on above: Performed By: #### A 1C #### [facility] [address] [place] [address] Dr. Marta Ashford Lymphocytes/100 WBC (Bld) 19.0 % Critically low 20.5-60.0 [facility] Comment on above: Performed By: #### A 1C #### [facility] [address] [place] [address] Dr. Marta Ashford MANUAL DIFF REQ NO Normal [facility] Comment on above: Performed By: #### A 1C #### [facility] [address] [place] [address] Dr. Marta Ashford MCH (RBC) [Entitic mass] 30.5 pg Normal 25.9-34.0 [facility] Comment on above: Performed By: #### A 1C #### [facility] [address] [place] [address] Dr. Marta Ashford MCHC (RBC) [Mass/Vol] 32.2 g/dL Normal 29.9-35.[address] [facility] Comment on above: Performed By: #### A 1C #### [facility] [address] [place] [address] Dr. Marta Ashford MCV (RBC) [Entitic vol] 94.8 fL Critically high 80.0-94.0 [facility] Comment on above: Performed By: #### A 1C #### [facility] [address] [place] [address] Dr. Marta Ashford MONO # 1.2 103/ul Critically high 0.3-0.8 The [facility] Comment on above: Performed By: #### A 1C #### [facility] [address] [place] [address] Dr. Marta Ashford Monocytes/100 WBC (Bld) 6.7 % Normal 1.7-12.[address] [facility] Comment on above: Performed By: #### A 1C #### [facility] [address] [place] [address] Dr. aMrta Ashford NEUT # 12.5 103/ul Critically high 1.4-6.5 The [facility] Comment on above: Performed By: #### A 1C #### [facility] [address] [place] [address] Dr. Marta Ashford Neutrophils/100 WBC (Bld) 72.0 % Normal 43.0-75.[address] [facility] Comment on above: Performed By: #### A 1C #### [facility] [address] [address] [address] Marta Ashford Platelet mean volume (Bld) [Entitic vol] 11.8 fL Normal 9.5-13.5 [facility] Comment on above: Performed By: #### A 1C #### [facility] [address] [address] [address] Marta Ashford PLT 149 103/ul Critically low 150-450 [facility] Comment on above: Performed By: #### A 1C #### [facility] [address] [address] [address] Marta Ashford RBC 4.23 106/ul Critically low 4.70-6.10 [facility] Comment on above: Performed By: #### A 1C #### [facility] [address] [place] [address] Dr. Marta Ashford WBC 17.4 103/ul Critically high 4.0-11.0 The [facility] Comment on above: Performed By: #### A 1C #### [facility] [address] [place] [address] Dr. Marta Ashford CULTURE URINEon 08-18-2021 CULTURE [...] Trimethoprim/Sulfamet hoxazole <=20 S F Normal [facility] Comment on above: Performed By: #### A 1C #### [facility] [address] [place] [address] Dr. Marta Ashford PH VENOUS BLOODon 08-18-2021 PCO2 VENOUS 36.1 mmHg Critically low 40.0-52.0 The [facility] Comment on above: Performed By: #### A 1C #### [facility] [address] [address] [address] Marta Ashford pH VENOUS 7.452 Critically high 7.330-7.430 [facility] Comment on above: Performed By: #### A 1C #### [facility] [address] [address] [address] Marta Ashford POINT OF CARE GLUCOSEon 04- Glucose [Mass/Vol] 276 mg/dL Critically high 74-106 [facility] Comment on above: Performed By: #### P OCGLUC #### [facility] [address] [address] [address] Marta Ashford PROF CHEM 8 (BAS METB)on Anion gap [Moles/Vol] 12.5 mmol/L Normal [facility] Comment on above: Performed By: #### P HVEN #### [facility] [address] [address] [address] Marta Ashford Calcium [Mass/Vol] 8.5 mg/dL Normal 8.5-10.1 [facility] Comment on above: Performed By: #### P HVEN #### [facility] [address] [place] [address] Dr. Marta Ashford Chloride [Moles/Vol] 105 mmol/L Normal 98-107 [facility] Comment on above: Performed By: #### P HVEN #### [facility] [address] [place] [address] Dr. Marta Ashford CO2 [Moles/Vol] 25.5 mmol/L Normal 22.0-30.0 [facility] Comment on above: Performed By: #### P HVEN #### [facility] [address] [place] [address] Dr. Marta Ashford Creatinine [Mass/Vol] 0.90 mg/dL Normal 0.66-1.25 [facility] Comment on above: Performed By: #### P HVEN #### [facility] [address] [place] [address] Dr. Marta Ashford EGFR-AF GIBRALTARIAN >60 Normal >=60 [facility] Comment on above: Performed By: #### P HVEN #### [facility] [address] [address] [address] Marta Ashford EGFR-NON AF GIBRALTARIAN >60 Normal >=60 [facility] Comment on above: Performed By: #### P HVEN #### [facility] [address] [address] [address] Marta Ashford Glucose [Mass/Vol] 239 mg/dL Critically high 74-106 [facility] Comment on above: Performed By: #### P HVEN #### [facility] [address] [address] [address] Marta Ashford Potassium [Moles/Vol] 4.0 mmol/L Normal 3.4-5.0 [facility] Comment on above: Performed By: #### P HVEN #### [facility] [address] [address] [address] Marta Ashford Sodium [Moles/Vol] 139 mmol/L Normal 137-145 [facility] Comment on above: Performed By: #### P HVEN #### [facility] [address] [address] [address] Marta Ashford Urea nitrogen [Mass/Vol] 13.0 mg/dL Normal 7.0-18.0 [facility] Comment on above: Performed By: #### P HVEN #### [facility] [address] [address] [address] Marta Ashford Urea nitrogen/Creatinine [Mass ratio] 14.4 mg/mg Normal [facility] Comment on above: Performed By: #### P HVEN #### [facility] [address] [address] [address] Marta Ashford CBC W MANUAL DIFFon 08-18-19 22 ATYPICAL LYMPH # Normal [facility] Comment on above: Performed By: #### C BCMAN #### [facility] [address] [address] [address] Marta Ashford ATYPICAL LYMPH % Normal [facility] Comment on above: Performed By: #### C BCVALERY #### [facility] [address] [address] [address] Marta Ashford BAND # 2.7 103/ul Critically high 0.0-0.3 [facility] Comment on above: Performed By: #### C JIMENA #### [facility] [address] [place] [address] Dr. Marta Ashford BAND % 15 % Critically high 0-5 [facility] Comment on above: Performed By: #### C JIMENA #### [facility] [address] [place] [address] Dr. Marta Ashford BASOM # 0.00 103/ul Normal 0.00-0.10 [facility] Comment on above: Performed By: #### C JIMENA #### [facility] [address] [place] [address] Dr. Marta Ashford BASOM % 0.0 % Critically low 0.2-2.0 [facility] Comment on above: Performed By: #### C JIMENA #### [facility] [address] [place] [address] Dr. Marta Ashford BLAST # Normal [facility] Comment on above: Performed By: #### C JIMENA #### [facility] [address] [place] [address] Dr. Marta Ashford BLAST % Normal [facility] Comment on above: Performed By: #### C JIMENA #### [facility] [address] [place] [address] Dr. Marta Ashford CORRECTED WBC Normal 4.0-11.0 The [facility] Comment on above: Performed By: #### C JIMENA #### [facility] [address] [place] [address] Dr. Marta Ashford EOS # 0.00 103/ul Normal 0.00-0.[address] [facility] Comment on above: Performed By: #### C JIMENA #### [facility] [address] [place] [address] Dr. Marta sAhford EOS% 0.0 % Critically low 0.9-7.0 [facility] Comment on above: Performed By: #### C JIMENA #### [facility] [address] [address] [address] Marta Ashford HCT 37.5 % Critically low 42.0-54.0 [facility] Comment on above: Performed By: #### C JIMENA #### [facility] [address] [address] [address] Marta Ashford HGB 12.1 g/dl Critically low 14.0-18.0 [facility] Comment on above: Performed By: #### C JIMENA #### [facility] [address] [address] [address] Marta Ashford LYMPHM # 3.20 103/ul Normal 1.20-3.80 [facility] Comment on above: Performed By: #### C JIMENA #### [facility] [address] [place] [address] Dr. Marta Ashford LYMPHM% 18.0 % Critically low 20.5-60.0 [facility] Comment on above: Performed By: #### C JIMENA #### [facility] [address] [place] [address] Dr. Marta Ashford MCH 31.2 pg Normal 25.9-34.0 [facility] Comment on above: Performed By: #### C JIMENA #### [facility] [address] [place] [address] Dr. Marta Ashford MCHC 32.3 g/dl Normal 29.9-35.[address] [facility] Comment on above: Performed By: #### C JIMENA #### [facility] [address] [place] [address] Dr. Marta Ashford MCV 96.6 fL Critically high 80.0-94.0 [facility] Comment on above: Performed By: #### C JIMENA #### [facility] [address] [place] [address] Dr. Marta Ashford METAMYELOCYTE # Normal [facility] Comment on above: Performed By: #### C JIMENA #### [facility] [address] [place] [address] Dr. Marta Ashford METAMYELOCYTE % Normal [facility] Comment on above: Performed By: #### C BCMAN #### [facility] [address] [address] [address] Marta Ashford MONOM# 1.25 103/ul Critically high 0.30-0.80 [facility] Comment on above: Performed By: #### C BCMAN #### [facility] [address] [address] [address] Marta Ashford MONOM% 7.0 % Normal 1.7-12.0 [facility] Comment on above: Performed By: #### C BCMAN #### [facility] [address] [address] [address] Marta Ashford MPV 11.4 fL Normal 9.5-13.5 [facility] Comment on above: Performed By: #### C BCMAN #### [facility] [address] [place] [address] Dr. Marat Ashford MYELOCYTE # Normal [facility] Comment on above: Performed By: #### C BCMAN #### [facility] [address] [address] [address] Marta Ashford MYELOCYTE % Normal [facility] Comment on above: Performed By: #### C BCMAN #### [facility] [address] [place] [address] Dr. Marta Ashford NRBC Normal [facility] Comment on above: Performed By: #### C BCVALERY #### [facility] [address] [address] [address] Marta Ashford PLT 106 103/ul Critically low 150-450 [facility] Comment on above: Performed By: #### C BCMAN #### [facility] [address] [address] [address] Marta Ashford RBC 3.88 106/ul Critically low 4.70-6.10 [facility] Comment on above: Performed By: #### C BCMAN #### [facility] [address] [address] [address] Marta Ashford RDW 13.1 % Normal 11.0-15.0 [facility] Comment on above: Performed By: #### C BCMAN #### [facility] [address] [address] [address] Marta Ashford SEG # 10.68 103/ul Critically high 1.40-6.50 [facility] Comment on above: Performed By: #### C BCMAN #### [facility] [address] [address] [address] Marta Ashford SEG % 60.0 % Normal 43.0-75.0 [facility] Comment on above: Performed By: #### C BCMAN #### [facility] [address] [address] [address] Marta Ashford WBC 17.8 103/ul Critically high 4.0-11.0 [facility] Comment on above: Performed By: #### C FANTASMAMAN #### [facility] [address] [address] [address] Marta Ashford PH VENOUS BLOODon 08-17-2021 PCO2 VENOUS 37.5 mmHg Critically low 40.0-52.0 [facility] Comment on above: Performed By: #### P HVEN #### [facility] [address] [address] [address] Marta Ashford pH VENOUS 7.390 Normal 7.330-7.430 [facility] Comment on above: Performed By: #### P HVEN #### [facility] [address] [address] [address] Marta Ashford POINT OF CARE GLUCOSEon Glucose [Mass/Vol] 261 mg/dL Critically high 74-106 [facility] Comment on above: Performed By: #### A 1C #### [facility] [address] [address] [address] Marta Ashford Glucose [Mass/Vol] 213 mg/dL Critically high [facility]106 [facility] Comment on above: Performed By: #### A 1C #### [facility] [address] [address] [address] Marat Ashford Glucose [Mass/Vol] 305 mg/dL Critically high -106 [facility] Comment on above: Performed By: #### A 1C #### [facility] [address] [place] [address] Dr. Marta Ashford PROF CHEM 8 (BAS METB)on Anion gap [Moles/Vol] 13.8 mmol/L Normal [facility] Comment on above: Performed By: #### A 1C #### [facility] [address] [place] [address] Dr. Marta Ashford Calcium [Mass/Vol] 7.3 mg/dL Critically low 8.5-10.1 [facility] Comment on above: Performed By: #### A 1C #### [facility] [address] [place] [address] Dr. Marta Ashford Chloride [Moles/Vol] 108 mmol/L Critically high 98-107 [facility] Comment on above: Performed By: #### A 1C #### [facility] [address] [place] [address] Dr. Marta Ashford CO2 [Moles/Vol] 22.2 mmol/L Normal 22.0-30.0 [facility] Comment on above: Performed By: #### A 1C #### [facility] [address] [place] [address] Dr. Marta Ashford Creatinine [Mass/Vol] 0.95 mg/dL Normal 0.66-1.25 [facility] Comment on above: Performed By: #### A 1C #### [facility] [address] [place] [address] Dr. Marta Ashford EGFR-AF GIBRALTARIAN >60 Normal >=60 [facility] Comment on above: Performed By: #### A 1C #### [facility] [address] [place] [address] Dr. Marta Ashford EGFR-NON AF GIBRALTARIAN >60 Normal >=60 [facility] Comment on above: Performed By: #### A 1C #### [facility] [address] [place] [address] Dr. Marta Ashford Glucose [Mass/Vol] 181 mg/dL Critically high 74-106 [facility] Comment on above: Performed By: #### A 1C #### [facility] [address] [address] [address] Marta Ashford Potassium [Moles/Vol] 4.0 mmol/L Normal 3.4-5.0 [facility] Comment on above: Performed By: #### A 1C #### [facility] [address] [address] [address] Marta Ashford Sodium [Moles/Vol] 140 mmol/L Normal 137-145 [facility] Comment on above: Performed By: #### A 1C #### [facility] [address] [address] [address] Marta Ashford Urea nitrogen [Mass/Vol] 17.0 mg/dL Normal 7.0-18.0 [facility] Comment on above: Performed By: #### A 1C #### [facility] [address] [place] [address] Dr. Marta Ashford Urea nitrogen/Creatinine [Mass ratio] 17.9 mg/mg Normal [facility] Comment on above: Performed By: #### A 1C #### [facility] [address] [place] [address] Dr. Marta Ashford BLOOD CULTURE ID PANELon A. baumannii Not detected Normal [facility] Comment on above: Performed By: #### A 1C #### [facility] [address] [address] [address] Marta GONSALEZD CONTROLS PASSED Normal [facility] Comment on above: Performed By: #### A 1C #### [facility] [address] [address] [address] Marta GONSALEZDBTHD BLOOD CULTURE BOTTLE INFORMATION Normal [facility] Comment on above: Performed By: #### A 1C #### [facility] [address] [place] [address] Dr. Marta Ashford BCIDHD1 ANTIMICROBIAL RESISTANCE GENES [facility] Comment on above: Performed By: #### A 1C #### [facility] [address] [address] [address] Marta Ashford BCIDHD2 SEE BELOW Normal [facility] Comment on above: Result Comment: KPC- carbapenem resistance gene, mecA- methecillin resistance gene, van A/B- vancomycin resistance gene Note: Antimicrobial resitance can occur via multiple mechanisms. A Not Detected result for the [employer] antomicrobial resistance gene assays does not indicate antimicrobial susceptibility. Subculturing is required for specis identificationand susceptibility testing of isolates. Performed By: #### A 1C #### [facility] [address] [place] [address] Dr. Marta Ashford BCIDHD3 Positive [facility] Comment on above: Performed By: #### A 1C #### [facility] [address] [place] [address] Dr. Marta Ahsford BCIDHD4 [address] [facility] Comment on above: Performed By: #### A 1C #### [facility] [address] [place] [address] Dr. Marta Ashford BCIDHD5 YEAST Normal [facility] Comment on above: Performed By: #### A 1C #### [facility] [address] [place] [address] Dr. Marta Ashford BCIDHD6 SEE BEL[address] [facility] Comment on above: Result Comment: Note : All genus and species BCID [employer] results will be verified post subculturing via Maldi-Tof MS testing methodology. Performed By: #### A 1C #### [facility] [address] [place] [address] Dr. Marta Ashford Bottle Set: Set 2 [facility] Comment on above: Performed By: #### A 1C #### [facility] [address] [place] [address] Dr. Marta Ashford Bottle: Aerobic Normal [facility] Comment on above: Performed By: #### A 1C #### [facility] [address] [place] [address] Dr. Marta Ashford Surekha albicans Not detected Normal [facility] Comment on above: Performed By: #### A 1C #### [facility] [address] [place] [address] Dr. Marta Ashford Surekha glabrata Not detected Normal [facility] Comment on above: Performed By: #### A 1C #### [facility] [address] [address] [address] Marta Ashford Surekha Krusei Not detected Normal [facility] Comment on above: Performed By: #### A 1C #### [facility] [address] [place] [address] Dr. Marta Ashford Surekha Parapsilosis Not detected Normal [facility] Comment on above: Performed By: #### A 1C #### [facility] [address] [address] [address] Marta Ashford Surekha Tropicalis Not detected Normal [facility] Comment on above: Performed By: #### A 1C #### [facility] [address] [place] [address] Dr. Marta Ashford E. Cloacae complex Not detected Normal [facility] Comment on above: Performed By: #### A 1C #### [facility] [address] [place] [address] Dr. Marta Ashford Enterobacteriaceae Detected Critically abnormal [facility] Comment on above: Performed By: #### A 1C #### [facility] [address] [place] [address] Dr. Marta Ashford Enterococcus Not detected Normal [facility] Comment on above: Performed By: #### A 1C #### [facility] [address] [place] [address] Dr. Marta Ashford Escheria coli Detected Critically abnormal [facility] Comment on above: Performed By: #### A 1C #### [facility] [address] [place] [address] Dr. Marta Ashford K. oxytoca Not detected Normal [facility] Comment on above: Performed By: #### A 1C #### [facility] [address] [place] [address] Dr. Marta Ashford K. pneumoniae Not detected Normal The [facility] Comment on above: Performed By: #### A 1C #### [facility] [address] [place] [address] Dr. Marta Ashford KPC Resistant Gene Not detected Normal [facility] Comment on above: Performed By: #### A 1C #### [facility] [address] [place] [address] Dr. Marta Ashford List. monocytogenes Not detected Normal [facility] Comment on above: Performed By: #### A 1C #### [facility] [address] [place] [address] Dr. Marta Ashford mecA Resistant Gene Not Applicable Normal [facility] Comment on above: Performed By: #### A 1C #### [facility] [address] [place] [address] Dr. Marta Ashford Proteus Not detected Normal [facility] Comment on above: Performed By: #### A 1C #### [facility] [address] [place] [address] Dr. Marta Ashford Pseud. aeruginosa Not detected Normal [facility] Comment on above: Performed By: #### A 1C #### [facility] [address] [place] [address] Dr. Marta Ashford Seratia marcescens Not detected Normal [facility] Comment on above: Performed By: #### A 1C #### [facility] [address] [place] [address] Dr. Marta Ashford Site: left hand Normal [facility] Comment on above: Performed By: #### A 1C #### [facility] [address] [place] [address] Dr. Marta Ashford Staph. aureus Not detected Normal [facility] Comment on above: Performed By: #### A 1C #### [facility] [address] [place] [address] Dr. Marta Ashford Staphylococcus Not detected Normal [facility] Comment on above: Performed By: #### A 1C #### [facility] [address] [place] [address] Dr. Marta Ashford Strep. agalactiae Not detected Normal [facility] Comment on above: Performed By: #### A 1C #### [facility] [address] [place] [address] Dr. Marta Ashford Strep. pneumoniae Not detected Normal [facility] Comment on above: Performed By: #### A 1C #### [facility] [address] [place] [address] Dr. Marta Ashford Strep. pyogenes Not detected Normal [facility] Comment on above: Performed By: #### A 1C #### [facility] [address] [place] [address] Dr. Marta Ashford Streptococcus Not detected Normal [facility] Comment on above: Performed By: #### A 1C #### [facility] [address] [place] [address] Dr. Marta Ashford Cheyenne/B Resist. Gene Not Applicable Normal [facility] Comment on above: Performed By: #### A 1C #### [facility] [address] [place] [address] Dr. Marta Ashford CARDIAC PAOLO 3-6on 2 CK [Catalytic activity/Vol] 112 U/L Normal 55-170 [facility] Comment on above: Performed By: #### P HVEN #### [facility] [facility] [address] [place] [address] Dr. Marta Ashford CK.MB [Mass/Vol] 1.13 ng/mL Normal <=2.37 [facility] Comment on above: Performed By: #### P HVEN #### [facility] [address] [place] [address] Dr. Marta Ashford HSTROP 283.1 pg/mL Critically high 4.0-42.2 [facility] Comment on above: Result Comment: CUT- OFF POINTS HAVE BEEN ESTABLISHED BASED ON THE FOURTH UNIVERSAL DEFINITIONS OF MYOCARDIAL INFARCTION. THE UPPER REFERENCE LIMIT (URL) OF TROPONIN, DEFINED THE 99TH PERCENTILE OF cTnI DISTRIBUTION IN A REFERENCE POPULATION, HAS BEEN CONFIRMED THE DECISION THRESHOLD FOR ME DIAGNOSIS. TEST REPEATED CRITICAL VALUE VERIFIED Performed By: #### P HVEN #### [facility] [address] [place] [address] Dr. Marta Ashford CK [Catalytic activity/Vol] 98 U/L Normal 55-170 [facility] Comment on above: Performed By: #### A 1C #### [facility] [address] [place] [address] Dr. Marta Ashford CK.MB [Mass/Vol] 1.08 ng/mL Normal <=2.37 [facility] Comment on above: Performed By: #### A 1C #### [facility] [address] [place] [address] Dr. Marta Ashford HSTROP 310.8 pg/mL Critically high 4.0-42.2 [facility] Comment on above: Result Comment: CUT- OFF POINTS HAVE BEEN ESTABLISHED BASED ON THE FOURTH UNIVERSAL DEFINITIONS OF MYOCARDIAL INFARCTION. THE UPPER REFERENCE LIMIT (URL) OF TROPONIN, DEFINED THE 99TH PERCENTILE OF cTnI DISTRIBUTION IN A REFERENCE POPULATION, HAS BEEN CONFIRMED THE DECISION THRESHOLD FOR ME DIAGNOSIS. test repeated Performed By: #### A 1C #### [facility] [address] [place] [address] Dr. Marta Ashford CARDIAC PAOLO ADMITon 022 CK [Catalytic activity/Vol] 100 U/L Normal 55-170 [facility] Comment on above: Performed By: #### Shira HESS #### [facility] [address] [place] [address] Dr. Marta Ashford CK.MB [Mass/Vol] 1.20 ng/mL Normal <=2.37 [facility] Comment on above: Performed By: #### C JIMENA #### [facility] [address] [place] [address] Dr. Marta Ashford HSTROP 51.6 pg/mL Critically high 4.0-42.2 The [facility] Comment on above: Result Comment: CUT- OFF POINTS HAVE BEEN ESTABLISHED BASED ON THE FOURTH UNIVERSAL DEFINITIONS OF MYOCARDIAL INFARCTION. THE UPPER REFERENCE LIMIT (URL) OF TROPONIN, DEFINED THE 99TH PERCENTILE OF cTnI DISTRIBUTION IN A REFERENCE POPULATION, HAS BEEN CONFIRMED THE DECISION THRESHOLD FOR ME DIAGNOSIS. Performed By: #### C JIMENA #### [facility] [address] [place] [address] Dr. Marta Ashford ANGELICA 77.0 ng/mL Normal <=121.[address] [facility] Comment on above: Performed By: #### C JIMENA #### [facility] [address] [place] [address] Dr. Marta Ashford CBC AUTO DIFFon 08-16-2021 BASO # 0.0 103/ul Normal 0.0-0.1 [facility] Comment on above: Performed By: #### A 1C #### [facility] [address] [place] [address] Dr. Marta Ashford Basophils/100 WBC (Bld) 0.2 % Normal 0.2-2.0 [facility] Comment on above: Performed By: #### A 1C #### [facility] [address] [place] [address] Dr. Marta Ashford EO # 0.0 103/ul Normal 0.0-0.7 [facility] Comment on above: Performed By: #### A 1C #### [facility] [address] [place] [address] Dr. Marta Ashford Eosinophils/100 WBC (Bld) 0.2 % Critically low 0.9-7.0 [facility] Comment on above: Performed By: #### A 1C #### [facility] [address] [place] [address] Dr. Marta Ashford Erythrocyte distribution width (RBC) [Ratio] 12.8 % Normal 11.0-15.0 [facility] Comment on above: Performed By: #### A 1C #### [facility] [address] [place] [address] Dr. Marta Ashford Hematocrit (Bld) [Volume fraction] 38.4 % Critically low 42.0-54.0 [facility] Comment on above: Performed By: #### A 1C #### [facility] [address] [place] [address] Dr. Marta Ashford Hemoglobin (Bld) [Mass/Vol] 12.7 g/dL Critically low 14.0-18.0 [facility] Comment on above: Performed By: #### A 1C #### [facility] [address] [place] [address] Dr. Marta Ashfrod IG # 0.03 10e3/ul Normal 0.00-0.03 [facility] Comment on above: Performed By: #### A 1C #### [facility] [address] [place] [address] Dr. Marta Ashford IG % 0.6 % Critically high 0.0-0.5 [facility] Comment on above: Performed By: #### A 1C #### [facility] [address] [place] [address] Dr. Marta Ashford LYMPH # 0.5 103/ul Critically low 1.2-3.8 [facility] Comment on above: Performed By: #### A 1C #### [facility] [address] [place] [address] Dr. Marta Ashford Lymphocytes/100 WBC (Bld) 11.1 % Critically low 20.5-60.0 [facility] Comment on above: Result Comment: dif. not rqd. same as 08/16/21 Performed By: #### A 1C #### [facility] [address] [place] [address] Dr. Marta Ashford MANUAL DIFF REQ NO Normal [facility] Comment on above: Performed By: #### A 1C #### [facility] [address] [place] [address] Dr. Marta Ashford MCH (RBC) [Entitic mass] 31.1 pg Normal 25.9-34.0 [facility] Comment on above: Performed By: #### A 1C #### [facility] [address] [place] [address] Dr. Marta Ashford MCHC (RBC) [Mass/Vol] 33.1 g/dL Normal 29.9-35.[address] [facility] Comment on above: Performed By: #### A 1C #### [facility] [address] [place] [address] Dr. Marta Ashford MCV (RBC) [Entitic vol] 93.9 fL Normal 80.0-94.[address] [facility] Comment on above: Performed By: #### A 1C #### [facility] [address] [place] [address] Dr. Marta Ashford MONO # 0.0 103/ul Critically low 0.3-0.8 [facility] Comment on above: Performed By: #### A 1C #### [facility] [address] [place] [address] Dr. Marta Ashford Monocytes/100 WBC (Bld) 0.6 % Critically low 1.7-12.0 [facility] Comment on above: Performed By: #### A 1C #### [facility] [address] [place] [address] Dr. Marta Ashford NEUT # 4.2 103/ul Normal 1.4-6.5 [facility] Comment on above: Performed By: #### A 1C #### [facility] [address] [place] [address] Dr. Marta Ashford Neutrophils/100 WBC (Bld) 87.3 % Critically high 43.0-75.0 [facility] Comment on above: Performed By: #### A 1C #### [facility] [address] [place] [address] Dr. Marta Ashford Platelet mean volume (Bld) [Entitic vol] 11.1 fL Normal 9.5-13.5 [facility] Comment on above: Performed By: #### A 1C #### [facility] [address] [place] [address] Dr. Marta Ashford PLT 114 103/ul Critically low 150-450 [facility] Comment on above: Performed By: #### A 1C #### [facility] [address] [place] [address] Dr. Marta Ashford RBC 4.09 106/ul Critically low 4.70-6.10 [facility] Comment on above: Performed By: #### A 1C #### [facility] [address] [place] [address] Dr. Marta Ashford WBC 4.8 103/ul Normal 4.0-11.0 [facility] Comment on above: Performed By: #### A 1C #### [facility] [address] [place] [address] Dr. Marta Ashford CBC W MANUAL DIFFon 08-17-19 22 ATYPICAL LYMPH # Normal [facility] Comment on above: Performed By: #### A 1C #### [facility] [address] [place] [address] Dr. Marta Ashford ATYPICAL LYMPH % Normal [facility] Comment on above: Performed By: #### A 1C #### [facility] [address] [place] [address] Dr. Marta Ashford BAND # Normal 0.0-0.[address] [facility] Comment on above: Performed By: #### A 1C #### [facility] [address] [place] [address] Dr. Marta Ashford BAND % Normal 0-[address] [facility] Comment on above: Performed By: #### A 1C #### [facility] [address] [place] [address] Dr. Marta Ashford BASOM # 0.00 103/ul Normal 0.00-0.10 [facility] Comment on above: Performed By: #### A 1C #### [facility] [address] [place] [address] Dr. Marta Ashford BASOM % 0.0 % Critically low 0.2-2.0 [facility] Comment on above: Performed By: #### A 1C #### [facility] [address] [place] [address] Dr. Marta Ashford BLAST # Normal [facility] Comment on above: Performed By: #### A 1C #### [facility] [address] [place] [address] Dr. Marta Ashford BLAST % Normal [facility] Comment on above: Performed By: #### A 1C #### [facility] [address] [place] [address] Dr. Marta Ashford CORRECTED WBC Normal 4.0-11.0 The [facility] Comment on above: Performed By: #### A 1C #### [facility] [address] [place] [address] Dr. Marta Ashford EOS # 0.03 103/ul Normal 0.00-0.[address] [facility] Comment on above: Performed By: #### A 1C #### [facility] [address] [place] [address] Dr. Marta Ashford EOS% 1.0 % Normal 0.9-7.[address] [facility] Comment on above: Performed By: #### A 1C #### [facility] [address] [place] [address] Dr. Marta Ashford HCT 44.0 % Normal 42.0-54.0 [facility] Comment on above: Performed By: #### A 1C #### [facility] [address] [place] [address] Dr. Marta Ashford HGB 14.5 g/dl Normal 14.0-18.0 [facility] Comment on above: Performed By: #### A 1C #### [facility] [address] [place] [address] Dr. Marta Ashford LYMPHM # 0.90 103/ul Critically low 1.20-3.80 [facility] Comment on above: Performed By: #### A 1C #### [facility] [address] [place] [address] Dr. Marta Ashford LYMPHM% 32.0 % Normal 20.5-60.0 [facility] Comment on above: Performed By: #### A 1C #### [facility] [address] [place] [address] Dr. Marta Ashford MCH 31.2 pg Normal 25.9-34.0 [facility] Comment on above: Performed By: #### A 1C #### [facility] [address] [place] [address] Dr. Marta Ashford MCHC 33.0 g/dl Normal 29.9-35.[address] [facility] Comment on above: Performed By: #### A 1C #### [facility] [address] [place] [address] Dr. Marta Ashford MCV 94.6 fL Critically high 80.0-94.0 [facility] Comment on above: Performed By: #### A 1C #### [facility] [address] [place] [address] Dr. Marta Ashford METAMYELOCYTE # Normal The [facility] Comment on above: Performed By: #### A 1C #### [facility] [address] [place] [address] Dr. Marta Ashford METAMYELOCYTE % Normal [facility] Comment on above: Performed By: #### A 1C #### [facility] [address] [address] [address] Marta Ashford MONOM# 0.06 103/ul Critically low 0.30-0.80 [facility] Comment on above: Performed By: #### A 1C #### [facility] [address] [address] [address] Marta Ashford MONOM% 2.0 % Normal 1.7-12.0 [facility] Comment on above: Performed By: #### A 1C #### [facility] [address] [place] [address] Dr. Marta Ashford MPV 10.8 fL Normal 9.5-13.5 [facility] Comment on above: Performed By: #### A 1C #### [facility] [address] [place] [address] Dr. Marta Ashford MYELOCYTE # Normal [facility] Comment on above: Performed By: #### A 1C #### [facility] [address] [place] [address] Dr. Marta Ashford MYELOCYTE % Normal [facility] Comment on above: Performed By: #### A 1C #### [facility] [address] [place] [address] Dr. Marta Ashford NRBC Normal [facility] Comment on above: Performed By: #### A 1C #### [facility] [address] [place] [address] Dr. Marta Ashford PLT 129 103/ul Critically low 150-450 [facility] Comment on above: Performed By: #### A 1C #### [facility] [address] [place] [address] Dr. Marta Ashford RBC 4.65 106/ul Critically low 4.70-6.10 [facility] Comment on above: Performed By: #### A 1C #### [facility] [address] [place] [address] Dr. Marta Ashford RDW 12.9 % Normal 11.0-15.0 [facility] Comment on above: Performed By: #### A 1C #### [facility] [address] [place] [address] Dr. Marta Ashford SEG # 1.82 103/ul Normal 1.40-6.[address] [facility] Comment on above: Performed By: #### A 1C #### [facility] [address] [address] [address] Marta Ashford SEG % 65.0 % Normal 43.0-75.0 [facility] Comment on above: Performed By: #### A 1C #### [facility] [address] [address] [address] Marta Ashford WBC 2.8 103/ul Critically low 4.0-11.0 [facility] Comment on above: Performed By: #### A 1C #### [facility] [address] [place], [place] [id number] Dr. Marta Ashford CT ABD/PELVIS WO CONon [...] ROVERTO GREENFIELD Date: 2021-08-16 05:21 Normal [facility] CULTURE BLOODon 08-16-2021 Microscopic examination of blood, culture Culture Observations: No growth at 5 days. Normal [facility] Comment on above: Performed By: #### B [id number] #### [facility] [address] [address] [address] Marta Ashford Microscopic examination of blood, culture Culture Observations: No growth at 5 days. Normal [facility] Comment on above: Performed By: #### A 1C #### [facility] [address] [address] [address] Marta Ashford Covid-19 PCR ([facility])on SARS-CoV-2 (COVID-19) RNA NORMA+probe Ql (Unsp spec) Not detected Normal NOT DETECTED [facility] Comment on above: Result Comment: When diagnostic testing is negative, the possibility of a false negative should be considered in the context of a patient's recent exposures and the presence of clinical signs and symptoms consistent with SARS-CoV-2. This test is not yet approved or cleared by the [place] Food and Drug Administration (FDA). This test was developed by [employer], [place], [place]. The performance characteristics of this test were validated by [facility]. The results are not intended to be used as the sole means for clinical diagnosis or patient management decisions. The [facility] is authorized under Clinical Laboratory Improvement [...] for this test is supported by the Import Coordination And Production Head of Health and Human Service's declaration that [...] used). Performed By: #### A 1C #### [facility] [address] [place] [address] Dr. Marta Ashford DRUG SCREEN RAPID (URINE)on 08-16-2021 AMP Negative Normal NEGATIVE [facility] Comment on above: Performed By: #### P HVEN #### [facility] [address] [place] [address] Dr. Marta Ashford BAR Negative Normal NEGATIVE [facility] Comment on above: Performed By: #### P HVEN #### [facility] [address] [place] [address] Dr. Marta Ashford BUP Negative Normal NEGATIVE [facility] Comment on above: Performed By: #### P HVEN #### [facility] [address] [place] [address] Dr. Marta Ashford BZO Negative Normal NEGATIVE [facility] Comment on above: Performed By: #### P HVEN #### [facility] [address] [place] [address] Dr. Marta Ashford ROME Negative Normal NEGATIVE [facility] Comment on above: Performed By: #### P HVEN #### [facility] [address] [place] [address] Dr. Marta Ashford CUT-OFFS SEE BELOW Normal [facility] Comment on above: Result Comment: AMP [...] ng/mL Performed By: #### P HVEN #### [facility] [address] [address] [address] Marta Ashford DRUG CUT HEADER DRUG CLASS TEST SYSTEM CUT-OFF CONCENTRATIONS ARE FOLLOWS: Normal [facility] Comment on above: Performed By: #### P HVEN #### [facility] [address] [address] [address] Marta Ashford mAMP Negative Normal NEGATIVE [facility] Comment on above: Performed By: #### P HVEN #### [facility] [address] [address] [address] Marta Ashford MTD Negative Normal NEGATIVE [facility] Comment on above: Performed By: #### P HVEN #### [facility] [address] [place] [address] Dr. Marta Ashford OPI Negative Normal NEGATIVE [facility] Comment on above: Performed By: #### P HVEN #### [facility] [address] [address] [address] Marta Ashford OXY Negative Normal NEGATIVE [facility] Comment on above: Performed By: #### P HVEN #### [facility] [address] [place] [address] Dr. Marta Ashford PCP Negative Normal NEGATIVE [facility] Comment on above: Performed By: #### P HVEN #### [facility] [address] [place] [address] Dr. Marta Ashford PPX Negative Normal NEGATIVE [facility] Comment on above: Performed By: #### P HVEN #### [facility] [address] [place] [address] Dr. Marta Ashford TCA Negative Normal NEGATIVE [facility] Comment on above: Performed By: #### P HVEN #### [facility] [address] [place] [address] Dr. Marta Ashford THC Negative Normal NEGATIVE [facility] Comment on above: Performed By: #### P HVEN #### [facility] [address] [place] [address] Dr. Marta Ashford ER URINE PROFILEon 2 Bilirubin Ql (U) Negative Normal NEGATIVE [facility] Comment on above: Performed By: #### A 1C #### [facility] [address] [place] [address] Dr. Marta Ashford Clarity (U) SL CLOUDY Abnormal CLEAR [facility] Comment on above: Performed By: #### A 1C #### [facility] [address] [place] [address] Dr. Marta Ashford Color (U) YELLOW Normal YELLOW [facility] Comment on above: Performed By: #### A 1C #### [facility] [address] [place] [address] Dr. Marta Ashford ERUAHValarie A micrscopic examination will be performed if indicated. Normal [facility] Comment on above: Performed By: #### A 1C #### [facility] [address] [place] [address] Dr. Marta Ashford Glucose Ql (U) 1000 mg/dl Abnormal NEGATIVE [facility] Comment on above: Performed By: #### A 1C #### [facility] [address] [place] [address] Dr. Marta Ashford Hemoglobin Ql (U) SMALL Abnormal NEGATIVE [facility] Comment on above: Performed By: #### A 1C #### [facility] [address] [place] [address] Dr. Marta Ashford Ketones Ql (U) Negative Normal NEGATIVE [facility] Comment on above: Performed By: #### A 1C #### [facility] [address] [place] [address] Dr. Marta Ashford LEUKOCYTES SMALL Abnormal NEGATIVE [facility] Comment on above: Performed By: #### A 1C #### [facility] [address] [place] [address] Dr. Marta Ashford Nitrite Ql (U) Positive Abnormal NEGATIVE [facility] Comment on above: Performed By: #### A 1C #### [facility] [address] [place] [address] Dr. Marta Ashford pH (U) 5.5 [pH] Normal 5-[address] [facility] Comment on above: Performed By: #### A 1C #### [facility] [address] [place] [address] Dr. Marta Ashford SPEC GRAVITY 1.020 Normal 1.005-<=1.02 5 [facility] Comment on above: Performed By: #### A 1C #### [facility] [address] [place] [address] Dr. Marta Ashford UA PROTEIN TRACE Normal NEGATIVE/ TRACE [facility] Comment on above: Performed By: #### A 1C #### [facility] [address] [place] [address] Dr. Marta Ashford UR MICRO IND INDICATED Normal [facility] Comment on above: Performed By: #### A 1C #### [facility] [address] [place] [address] Dr. Marta Ashford Urobilinogen Qn (U) 0.2 {Brad'U}/dL Normal 0.2 - 1. 0 [facility] Comment on above: Performed By: #### A 1C #### [facility] [address] [place] [address] Dr. Marta Ashford LACTATE/LACTIC ACIDon 2021 Lactate [Moles/Vol] 4.1 mmol/L Critically high 0.7-2.0 [facility] Comment on above: Result Comment: test repeated Performed By: #### L ACT #### [facility] [address] [place] [address] Dr. Marta Ashford Lactate [Moles/Vol] 4.1 mmol/L Critically high 0.7-2.[address] [facility] Comment on above: Result Comment: test repeated Performed By: #### L ACT #### [facility] [address] [place] [address] Dr. Marta Ashford OCC BLD IMMUNOASSAYon 2021 OCCULT BLOOD Negative Normal NEGATIVE [facility] Comment on above: Performed By: #### A 1C #### [facility] [address] [place] [address] Dr. Marta Ashford PH VENOUS BLOODon 08-16-2021 PCO2 VENOUS 30.8 mmHg Critically low 40.0-52.0 [facility] Comment on above: Performed By: #### P HVEN #### [facility] [address] [address] [address] Marta Ashford pH VENOUS 7.400 Normal 7.330-7.430 [facility] Comment on above: Performed By: #### P HVEN #### [facility] [address] [address] [address] Marta Ashford POINT OF CARE GLUCOSEon Glucose [Mass/Vol] 214 mg/dL Critically high [address] [place] [address] Comment on above: Performed By: #### C BCMAN #### [facility] [address] [address] [address] Marta Ashford Glucose [Mass/Vol] 275 mg/dL Critically high [address] [place] [address] Comment on above: Performed By: #### P HVEN #### [facility] [address] [address] [address] Marta Ashford Glucose [Mass/Vol] 366 mg/dL Critically high [address] [place] [address] Comment on above: Performed By: #### A 1C #### [facility] [facility] [address] [address] [address] Marta Ashford Glucose [Mass/Vol] 168 mg/dL Critically high [address] [place] [address] Comment on above: Performed By: #### P OCGLUC #### [facility] [address] [address] [address] Marta Ashford Glucose [Mass/Vol] 214 mg/dL Critically high [address] [place] [address] Comment on above: Performed By: #### A 1C #### [facility] [address] [address] [address] Marta Ashford PROF CHEM 8 (BAS METB)on Anion gap [Moles/Vol] 17.4 mmol/L Normal [facility] Comment on above: Performed By: #### P HVEN #### [facility] [address] [address] [address] Marta Ashford Calcium [Mass/Vol] 7.3 mg/dL Critically low 8.5-10.1 Th [facility] Comment on above: Performed By: #### P HVEN #### [facility] [address] [address] [address] Marta Ashford Chloride [Moles/Vol] 108 mmol/L Critically high 98-107 [facility] Comment on above: Performed By: #### P HVEN #### [facility] [address] [address] [address] Marta Ashford CO2 [Moles/Vol] 20.7 mmol/L Critically low 22.0-30.0 [facility] Comment on above: Performed By: #### P HVEN #### [facility] [address] [address] [address] Marta Ashford Creatinine [Mass/Vol] 1.32 mg/dL Critically high 0.66-1.25 [facility] Comment on above: Performed By: #### P HVEN #### [facility] [address] [address] [address] Marta Ashford EGFR-AF GIBRALTARIAN >60 Normal >=60 [facility] Comment on above: Performed By: #### P HVEN #### [facility] [address] [address] [address] Marta Ashford EGFR-NON AF GIBRALTARIAN 56 mL/min/1.73m2 Critically low >=60 [facility] Comment on above: Performed By: #### P HVEN #### [facility] [address] [address] [address] Marta Ashford Glucose [Mass/Vol] 189 mg/dL Critically high 74-106 [facility] Comment on above: Performed By: #### P HVEN #### [facility] [address] [address] [address] Marta Ashford Potassium [Moles/Vol] 3.1 mmol/L Critically low 3.4-5.0 [facility] Comment on above: Performed By: #### P HVEN #### [facility] [address] [address] [address] Marta Ashford Sodium [Moles/Vol] 143 mmol/L Normal 137-145 [facility] Comment on above: Performed By: #### P HVEN #### [facility] [address] [address] [address] Marta Ashford Urea nitrogen [Mass/Vol] 25.0 mg/dL Critically high 7.0-18.0 [facility] Comment on above: Performed By: #### P HVEN #### [facility] [address] [address] [address] Marta Ashford Urea nitrogen/Creatinine [Mass ratio] 18.9 mg/mg Normal [facility] Comment on above: Performed By: #### P HVEN #### [facility] [address] [address] [address] Marta Ashford Anion gap [Moles/Vol] 17.1 mmol/L Normal [facility] Comment on above: Performed By: #### C JIMENA #### [facility] [address] [address] [address] Marta Ashford Calcium [Mass/Vol] 8.2 mg/dL Critically low 8.5-10.1 [facility] Comment on above: Performed By: #### C BCVALERY #### [facility] [address] [address] [address] Marta Ashford Chloride [Moles/Vol] 104 mmol/L Normal 98-107 [facility] Comment on above: Performed By: #### C BCMAN #### [facility] [address] [address] [address] Marta Ashford CO2 [Moles/Vol] 23.4 mmol/L Normal 22.0-30.0 [facility] Comment on above: Performed By: #### C BCVALERY #### [facility] [address] [address] [address] Marta Ashford Creatinine [Mass/Vol] 1.17 mg/dL Normal 0.66-1.25 [facility] Comment on above: Performed By: #### C BCVALERY #### [facility] [address] [address] [address] Marta Ashford EGFR-AF GIBRALTARIAN >60 Normal >=60 [facility] Comment on above: Performed By: #### C FANTASMAMAN #### [facility] [address] [place] [address] Dr. Marta Ashford EGFR-NON AF GIBRALTARIAN >60 Normal >=60 [facility] Comment on above: Performed By: #### C FANTASMAMAN #### [facility] [address] [address] [address] Marta Ashford Glucose [Mass/Vol] 215 mg/dL Critically high 74-106 [facility] Comment on above: Performed By: #### C FANTASMAMAN #### [facility] [address] [address] [address] Marta Ashford Potassium [Moles/Vol] 3.5 mmol/L Normal 3.4-5.0 [facility] Comment on above: Performed By: #### C JIMENA #### [facility] [address] [place] [address] Dr. Marta Ashford Sodium [Moles/Vol] 141 mmol/L Normal 137-145 [facility] Comment on above: Performed By: #### C JIMENA #### [facility] [address] [place] [address] Dr. Marta Ashford Urea nitrogen [Mass/Vol] 23.0 mg/dL Critically high 7.0-18.0 [facility] Comment on above: Performed By: #### C JIMENA #### [facility] [address] [place] [address] Dr. Marta Ashford Urea nitrogen/Creatinine [Mass ratio] 19.7 mg/mg Normal [facility] Comment on above: Performed By: #### C JIMENA #### [facility] [address] [place] [address] Dr. Marta Ashford URINE MICROSCOPIC ONLYon BACTERIA MODERATE Abnormal NONE SEEN [facility] Comment on above: Performed By: #### A 1C #### [facility] [address] [place] [address] Dr. Marta Ashford Bacteria identified Cx Nom (U) INDICATED Normal [facility] Comment on above: Performed By: #### A 1C #### [facility] [address] [place] [address] Dr. Marta Ashford CAST NONE SEEN Normal NONE SEEN [facility] Comment on above: Performed By: #### A 1C #### [facility] [address] [place] [address] Dr. Marta Ashford Crystals LM Nom (Urine sed) NONE SEEN Normal NONE SEEN [facility] Comment on above: Performed By: #### A 1C #### [facility] [address] [place] [address] Dr. Marta Ashford Epithelial cells LM Ql (Urine sed) NONE SEEN Normal NONE SEEN /RARE [facility] Comment on above: Performed By: #### A 1C #### [facility] [address] [place] [address] Dr. Marta Ashford MUCOUS NONE SEEN Normal NONE SEEN [facility] Comment on above: Performed By: #### A 1C #### [facility] [address] [place] [address] Dr. Marta Ashford RBC 0-2 Normal 0-[address] [facility] Comment on above: Performed By: #### A 1C #### [facility] [address] [place] [address] Dr. Marta Ashford WBC 10-20 Abnormal NONE SEEN [facility] Comment on above: Performed By: #### A 1C #### [facility] [address] [place] [address] Dr. Marta Ashford XR CHEST 2 Von [...] KIZZY SINHA Date: 2021-08-16 03:11 [address] [facility] Glucose Poct Glucometerson 0 01-28-2021 Commemt1 Glu2: Cleaned Meter Normal [facility] Comment on above: Result Comment: PERF ORMED BY: [facility] [place] [address] PATHOLOGIST HAND LOOM WEAVER PER TEIXEIRA M.D. Performed By: #### G DANIELLE #### Point of Care testing , Glucose [Mass/Vol] 259 mg/dL Normal [facility] Comment on above: Result Comment: [facility] Glucose Reference Range is dependent on time and content of last meal. Glucose of more than 200 mg/dL in a nonstressed, ambulatory subject supports the diagnosis of Diabetes Mellitus. Performed By: #### G DANIELLE #### Point of Care testing , Franco 01-28-2021 L - -------- Specimen: [id number] Received: 01/28/21 Status: MORENO Spencer Num: [id number] Spec Type: Surgical Subm Dr: Oskar Johnson MD Tissues: A Duodenum - Biopsy (DUODENAL BX) B Esophagus Biopsy (ESOPHAGUS BX) C Colon Biopsy (COLON BX) Procedures: HE Stain/6, Gross/Micro L4/3 -------- Patient Age/Sex Location Account Attending Physician -------- Mike Badillo 60/M [id number] Oskar Johnson MD -------- SPEC NUM: [id number] RECD: 01/28/21 STATUS: MORENO RE NUM: [id number] PARVIN: 01/28/21 DR: Oskar Johnson MD ENTERED: 01/28/[address]: SPEC TYPE: Surgical DEPT: S ENTERED BY: [id number] RECV BY: [id number] ORDERED: HE Stain/6, Gross/Micro L4/3 ORDERED: HE [...] one cassette labeled A1. (MATILDA/FELICITAS) -------- Specimen: [id number] Received: 01/28/21 Status: MORENO Spencer Num: [id number] Spec Type: Surgical Subm Dr: Oskar Johnson MD Tissues: A Duodenum - Biopsy (DUODENAL BX) B Esophagus Biopsy (ESOPHAGUS BX) C Colon Biopsy (COLON BX) Procedures: HE Stain/6, Gross/Micro L4/3 -------- Patient: Mike Badillo [id number] (Continued) -------- Specimen: [id number] Received: 01/28/21 (Continued) Gross Description (Continued) Signed (signature on file) Per Teixeira MD 01/29/21 1813 -------- Specimen: [id number] Received: 01/28/21 Status: MORENO Spencer Num: [id number] Spec Type: Surgical Subm Dr: Oskar Johnson MD Tissues: A Duodenum - Biopsy (DUODENAL BX) B Esophagus Biopsy (ESOPHAGUS BX) C Colon Biopsy (COLON BX) Procedures: HE Stain/6, Gross/Micro L4/3 -------- Patient: Miek Badillo [id number] (Continued) -------- Specimen: [id number] Received: 01/28/21-1400 (Continued) Gross Description (Continued) B. Received in formalin labeled with the patient's name, number and esophagus biopsy erosions is a 0.3 cm pink tissue fragment. Entirely submitted in one cassette labeled B1. (/JS) C. Received in formalin labeled with the patient's name, number and surveillance colon biopsy rule out microscopic colitis are 3 miller tissue fragments, 0.1 cm to 0.3 cm. Entirely submitted in one cassette labeled C1. (/JS) Microscopic Description A. Two glass slides with H E stained material have been examined. The microscopic findings support the above pathologic diagnosis. B. Two glass slides with H E stained material have been examined. The microscopic findings support the above pathologic diagnosis. C. Two glass slides with H E stained material have been examined. The microscopic findings support the above pathologic diagnosis. [id number] -------- -------- Specimen: [id number] Received: 01/28/21 Status: MORENO Spencer Num: [id number] Spec Type: Surgical Subm Dr: Oskar Johnson MD Tissues: A Duodenum - Biopsy (DUODENAL BX) B Esophagus Biopsy (ESOPHAGUS BX) C Colon Biopsy (COLON BX) Procedures: HE Stain/6, Gross/Micro L4/3 -------- Patient: Mike Badillo [id number] (Continued) --- (more content not included)... Normal [facility] Ammoniaon 01-24-2021 Ammonia (P) [Moles/Vol] 30 umol/L Normal 11-35 [facility] Comment on above: Order Comment: Reaso n for Exam Fatty liver;Right sided abdominal pain Result Comment: PERF ORMED BY: [place] [address] PATHOLOGIST HAND LOOM WEAVER PER TEIXEIRA M.D. Performed By: #### P T, AMM, CBC, CMP, HEPATIC #### [place] [address] [place] COVID-19 FRMCon 01-24-2021 SARS-CoV-2 (COVID-19) RNA NORMA+probe Ql (Unsp spec) Negative Normal Negative [facility] Comment on above: Order Comment: Healt hcare Worker?: N Result Comment: Testing for SARS-CoV-2 by RT-PCR This test was developed and its performance characteristics determined by [employer] and validated at the [facility]. This test has not been FDA cleared [...] is terminated or revoked sooner. PERFORMED BY: [place] [address] PATHOLOGIST HAND LOOM WEAVER PER TEIXEIRA M.D. Performed By: #### C OVID 19 [facility] #### [address] Complete Blood Count Auto Di ffon 01-24-2021 Basophils (Bld) [#/Vol] 0.1 10*3/uL Normal 0.0-0.2 [facility] Comment on above: Order Comment: Reaso n for Exam Fatty liver;Right sided abdominal pain Result Comment: PERF ORMED BY: [place] [address] PATHOLOGIST HAND LOOM WEAVER PER TEIXEIRA M.D. Performed By: #### P T, AMM, CBC, CMP, HEPATIC #### [address] Basophils/100 WBC (Bld) 0.8 % Normal . [facility] Comment on above: Order Comment: Reaso n for Exam Fatty liver;Right sided abdominal pain Performed By: #### P T, AMM, CBC, CMP, HEPATIC #### [address] [address] [place] Eosinophils (Bld) [#/Vol] 0.2 10*3/uL Normal 0.0-0.45 [facility] Comment on above: Order Comment: Reaso n for Exam Fatty liver;Right sided abdominal pain Performed By: #### P T, AMM, CBC, CMP, HEPATIC #### [address] Eosinophils/100 WBC (Bld) 1.7 % Normal . [facility] Comment on above: Order Comment: Reaso n for Exam Fatty liver;Right sided abdominal pain Performed By: #### P T, AMM, CBC, CMP, HEPATIC #### [facility] [address] [place] [address] Erythrocyte distribution width (RBC) [Ratio] 13.3 % Normal 12.0-14.8 [facility] Comment on above: Order Comment: Reaso n for Exam Fatty liver;Right sided abdominal pain Performed By: #### P T, AMM, CBC, CMP, HEPATIC #### [address] Hematocrit (Bld) [Volume fraction] 40.9 % Normal 38.8-50.0 [facility] Comment on above: Order Comment: Reaso n for Exam Fatty liver;Right sided abdominal pain Performed By: #### P T, AMM, CBC, CMP, HEPATIC #### [facility] [address] [place] [address] Hemoglobin (Bld) [Mass/Vol] 14.3 g/dL Normal 13.0-17.0 [facility] Comment on above: Order Comment: Reaso n for Exam Fatty liver;Right sided abdominal pain Performed By: #### P T, AMM, CBC, CMP, HEPATIC #### [facility] [address] [place] [address] [place] Lymphocytes (Bld) [#/Vol] 3.7 10*3/uL Normal 1.00-4.8 [facility] Comment on above: Order Comment: Reaso n for Exam Fatty liver;Right sided abdominal pain Performed By: #### P T, AMM, CBC, CMP, HEPATIC #### [address] Lymphocytes/100 WBC (Bld) 37.8 % Normal . [facility] Comment on above: Order Comment: Reaso n for Exam Fatty liver;Right sided abdominal pain Performed By: #### P T, AMM, CBC, CMP, HEPATIC #### [address] MCH (RBC) [Entitic mass] 32.6 pg Normal 27.5-35.2 [facility] Comment on above: Order Comment: Reaso n for Exam Fatty liver;Right sided abdominal pain Performed By: #### P T, AMM, CBC, CMP, HEPATIC #### [address] MCV (RBC) [Entitic vol] 93.2 fL Normal 83.5-101 [facility] Comment on above: Order Comment: Reaso n for Exam Fatty liver;Right sided abdominal pain Performed By: #### P T, AMM, CBC, CMP, HEPATIC #### [address] Mean Corpuscular HGB Conc 35.0 g/dL Normal 32.5-35.6 [facility] Comment on above: Order Comment: Reaso n for Exam Fatty liver;Right sided abdominal pain Performed By: #### P T, AMM, CBC, CMP, HEPATIC #### [address] Monocytes (Bld) [#/Vol] 0.8 10*3/uL Normal 0.0-0.8 [facility] Comment on above: Order Comment: Reaso n for Exam Fatty liver;Right sided abdominal pain Performed By: #### P T, AMM, CBC, CMP, HEPATIC #### [address] Monocytes/100 WBC (Bld) 7.9 % Normal . [facility] Comment on above: Order Comment: Reaso n for Exam Fatty liver;Right sided abdominal pain Performed By: #### P T, AMM, CBC, CMP, HEPATIC #### [address] [place] [address] [place] Neutrophils (Bld) [#/Vol] 5.0 10*3/uL Normal 1.8-7.7 [facility] Comment on above: Order Comment: Reaso n for Exam Fatty liver;Right sided abdominal pain Performed By: #### P T, AMM, CBC, CMP, HEPATIC #### [facility] [address] [place] [address] Neutrophils/100 WBC (Bld) 51.8 % Normal . [facility] Comment on above: Order Comment: Reaso n for Exam Fatty liver;Right sided abdominal pain Performed By: #### P T, AMM, CBC, CMP, HEPATIC #### [facility] [address] [place] [address] Nucleated RBC/100 WBC (Bld) [Ratio] 0.1 % Normal 0-0.5 [facility] Comment on above: Order Comment: Reaso n for Exam Fatty liver;Right sided abdominal pain Performed By: #### P T, AMM, CBC, CMP, HEPATIC #### [address] Platelet mean volume (Bld) [Entitic vol] 10.0 fL Normal 6.6-10.1 [facility] Comment on above: Order Comment: Reaso n for Exam Fatty liver;Right sided abdominal pain Performed By: #### P T, AMM, CBC, CMP, HEPATIC #### [facility] [address] [place] [address] Platelets (Bld) [#/Vol] 147 10*3/uL Low 150-450 [facility] Comment on above: Order Comment: Reaso n for Exam Fatty liver;Right sided abdominal pain Performed By: #### P T, AMM, CBC, CMP, HEPATIC #### [facility] [address] [place] [address] [place] RBC (Bld) [#/Vol] 4.39 10*6/uL Normal 3.90-5.60 [facility] Comment on above: Order Comment: Reaso n for Exam Fatty liver;Right sided abdominal pain Performed By: #### P T, AMM, CBC, CMP, HEPATIC #### [facility] [address] WBC (Bld) [#/Vol] 9.7 10*3/uL Normal 4.5-11.0 [facility] Comment on above: Order Comment: Reaso n for Exam Fatty liver;Right sided abdominal pain Performed By: #### P T, AMM, CBC, CMP, HEPATIC #### [facility] [address] Comprehensive Metabolic Pane franco 01-24-2021 Albumin [Mass/Vol] 3.7 g/dL Normal 3.2-5.5 [facility] Comment on above: Order Comment: Reaso n for Exam Fatty liver;Right sided abdominal pain Performed By: #### P T, AMM, CBC, CMP, HEPATIC #### [facility] [address] [place] [address] Albumin/Globulin [Mass ratio] 1.2 {ratio} Normal [facility] Comment on above: Order Comment: Reaso n for Exam Fatty liver;Right sided abdominal pain Performed By: #### P T, AMM, CBC, CMP, HEPATIC #### [facility] [address] [place] [address] ALP [Catalytic activity/Vol] 54 U/L Normal 32-92 [facility] Comment on above: Order Comment: Reaso n for Exam Fatty liver;Right sided abdominal pain Performed By: #### P T, AMM, CBC, CMP, HEPATIC #### [facility] [address] [place] [address] ALT [Catalytic activity/Vol] 41 U/L Normal 10-60 [facility] Comment on above: Order Comment: Reaso n for Exam Fatty liver;Right sided abdominal pain Performed By: #### P T, AMM, CBC, CMP, HEPATIC #### [facility] [address] [place] [address] AST [Catalytic activity/Vol] 30 U/L Normal 10-42 [facility] Comment on above: Order Comment: Reaso n for Exam Fatty liver;Right sided abdominal pain Performed By: #### P T, AMM, CBC, CMP, HEPATIC #### [facility] [address] Bilirubin [Mass/Vol] 0.5 mg/dL Normal 0.3-1.2 [facility] Comment on above: Order Comment: Reaso n for Exam Fatty liver;Right sided abdominal pain Performed By: #### P T, AMM, CBC, CMP, HEPATIC #### [facility] [address] Calcium [Mass/Vol] 9.4 mg/dL Normal 8.2-10.2 [facility] Comment on above: Order Comment: Reaso n for Exam Fatty liver;Right sided abdominal pain Performed By: #### P T, AMM, CBC, CMP, HEPATIC #### [facility] [address] Chloride [Moles/Vol] 102 mmol/L Normal 95-114 [facility] Comment on above: Order Comment: Reaso n for Exam Fatty liver;Right sided abdominal pain Performed By: #### P T, AMM, CBC, CMP, HEPATIC #### [facility] [address] CO2 [Moles/Vol] 25.0 mmol/L Normal 22.0-30.0 [facility] Comment on above: Order Comment: Reaso n for Exam Fatty liver;Right sided abdominal pain Performed By: #### P T, AMM, CBC, CMP, HEPATIC #### [facility] [address] Creatinine [Mass/Vol] 0.86 mg/dL Normal 0.64-1.27 [facility] Comment on above: Order Comment: Reaso n for Exam Fatty liver;Right sided abdominal pain Performed By: #### P T, AMM, CBC, CMP, HEPATIC #### [facility] [address] Estimated GFR ( Lillie > 60 Normal [facility] Comment on above: Order Comment: Reaso n for Exam Fatty liver;Right sided abdominal pain Result Comment: GFR estimated reference range: According to KDOQI guidelines, <60 ml/min/1.73m2 is sufficient to diagnose a patient with chronic kidney disease. Performed By: #### P T, AMM, CBC, CMP, HEPATIC #### [facility] [address] Estimated GFR (Non- Am > 60 [facility] Comment on above: Order Comment: Reaso n for Exam Fatty liver;Right sided abdominal pain Performed By: #### P T, AMM, CBC, CMP, HEPATIC #### [facility] [address] Globulin (S) [Mass/Vol] 3.0 g/dL [facility] Comment on above: Order Comment: Reaso n for Exam Fatty liver;Right sided abdominal pain Performed By: #### P T, AMM, CBC, CMP, HEPATIC #### [facility] [address] Glucose [Mass/Vol] 223 mg/dL High 70-100 [facility] Comment on above: Order Comment: Reaso n for Exam Fatty liver;Right sided abdominal pain Result Comment: [facility] Glucose Reference Range is dependent on time and content of last meal. Glucose of more than 200 mg/dL in a nonstressed, ambulatory subject supports the diagnosis of Diabetes Mellitus. ADA recommended reference range Performed By: #### P T, AMM, CBC, CMP, HEPATIC #### [address] Potassium [Moles/Vol] 4.5 mmol/L Normal 3.5-5.1 [facility] Comment on above: Order Comment: Reaso n for Exam Fatty liver;Right sided abdominal pain Performed By: #### P T, AMM, CBC, CMP, HEPATIC #### [facility] [address] Protein [Mass/Vol] 6.7 g/dL Normal 6.1-7.9 [facility] Comment on above: Order Comment: Reaso n for Exam Fatty liver;Right sided abdominal pain Performed By: #### P T, AMM, CBC, CMP, HEPATIC #### [facility] [address] Sodium [Moles/Vol] 139 mmol/L Normal 136-146 [facility] Comment on above: Order Comment: Reaso n for Exam Fatty liver;Right sided abdominal pain Performed By: #### P T, AMM, CBC, CMP, HEPATIC #### [facility] [address] Urea nitrogen [Mass/Vol] 14 mg/dL Normal 9-23 [facility] Comment on above: Order Comment: Reaso n for Exam Fatty liver;Right sided abdominal pain Performed By: #### P T, AMM, CBC, CMP, HEPATIC #### [facility] [address] Hepatic Panelon 01-24-2021 Bilirubin,Indirect Not performed Normal [facility] Comment on above: Order Comment: Reaso n for Exam Fatty liver;Right sided abdominal pain Result Comment: PERF ORMED BY: [place] [address] PATHOLOGIST HAND LOOM WEAVER PER TEIXEIRA M.D. Performed By: #### P T, AMM, CBC, CMP, HEPATIC #### [facility] [address] Bilirubin.indirect [Mass/Vol] mg/dL Normal 0.0-0.4 [facility] Comment on above: Order Comment: Reaso n for Exam Fatty liver;Right sided abdominal pain Performed By: #### P T, AMM, CBC, CMP, HEPATIC #### [facility] [address] Prothrombin Time INRon 01-24 INR Coag (PPP) [Relative time] 1.0 {INR} Normal [facility] Comment on above: Order Comment: [...] heart valves: 3 - 4.5 PERFORMED BY: [place] [address] PATHOLOGIST HAND LOOM WEAVER PER TEIXEIRA M.D. Performed By: #### P T, AMM, CBC, CMP, HEPATIC #### [facility] [id number] [facility] PT Coag (PPP) [Time] 11.7 s Normal 9.0-12.9 [facility] Comment on above: Order Comment: Reaso n for Exam Fatty liver;Right sided abdominal pain Performed By: #### P T, AMM, CBC, CMP, HEPATIC #### [facility] [address] [place] [address] Vital Signs Date Time Vital Sign Value Performing Clinician Facility 03-08-2024 15:03-0400 Body height 162.6 cm Markos Arellano MD Work Phone: [facility] 03-08-2024 15:03-0400 Body mass index (BMI) [Ratio] 37.76 kg/m2 Markos Arellano MD Work Phone: [facility] 03-08-2024 15:03-0400 Body temperature 97.5 [degF] Markos Arellano MD Work Phone: [facility] 03-08-2024 15:03-0400 Body weight 99.79 kg Markos Arellano MD Work Phone: [facility] 03-08-2024 15:03-0400 Diastolic blood pressure 66 mm[Hg] Markos Arellano MD Work Phone: [facility] 03-08-2024 15:03-0400 Heart rate 96 /min Markos Arellano MD Work Phone: [facility] 03-08-2024 15:03-0400 Respiratory rate 20 /min Markos Arellano MD Work Phone: [facility] 03-08-2024 15:03-0400 SaO2% (BldA) [Mass fraction] 97 % Markos Arellano MD Work Phone: [facility] 03-08-2024 15:03-0400 Systolic blood pressure 124 mm[Hg] Markos Arellano MD Work Phone: [facility] 02-19-2024 09:55-0400 Body height 162.6 cm Markos Arellano MD Work Phone: [facility] 02-19-2024 09:55-0400 Body mass index (BMI) [Ratio] 38.45 kg/m2 Markos Arellano MD Work Phone: [facility] 02-19-2024 09:55-0400 Body temperature 97.5 [degF] Markos Arellano MD Work Phone: [facility] 02-19-2024 09:55-0400 Body weight 101.61 kg Markos Arellano MD Work Phone: [facility] 02-19-2024 09:55-0400 Diastolic blood pressure 86 mm[Hg] Markos Arellano MD Work Phone: [facility] 02-19-2024 09:55-0400 Heart rate 75 /min Markos Arellano MD Work Phone: [facility] 02-19-2024 09:55-0400 Respiratory rate 20 /min Markos Arellano MD Work Phone: [facility] 02-19-2024 09:55-0400 SaO2% (BldA) [Mass fraction] 93 % Markos Arellano MD Work Phone: [facility] 02-19-2024 09:55-0400 Systolic blood pressure 150 mm[Hg] Markos Arellano MD Work Phone: [facility] 06-11-2021 16:00-0500 Body height 162.56 cm Girma Tan Other [email or web address] Other 06-11-2021 16:00-0500 Body mass index (BMI) [Ratio] 39.75 kg/m2 Girma Tan Other [email or web address] Other 06-11-2021 16:00-0500 Body weight 105.05 kg Girma Tan Other [email or web address] Other 06-11-2021 16:00-0500 Diastolic blood pressure 89 mm[Hg] Girma Tan Other [email or web address] Other 06-11-2021 16:00-0500 Respiratory rate 18 /min Girma Tan Other [email or web address] Other 06-11-2021 16:00-0500 SaO2% (BldA) [Mass fraction] 99 % Girma Tan Other [email or web address] Other 06-11-2021 16:00-0500 Systolic blood pressure 158 mm[Hg] Girma Tan Other [email or web address] Other 03-07-2021 15:30-0400 Body height 162.56 cm Oskar Recioormack Other [email or web address] Other 03-07-2021 15:30-0400 Body mass index (BMI) [Ratio] 39.48 kg/m2 Oskar Recioormack Other [email or web address] Other 03-07-2021 15:30-0400 Body weight 104.33 kg Oskar Elizabeth Other [email or web address] Other Encounters Encounter Date Encounter Type Care Provider Facility Start: 03-08-2024 End: 03-08-2024 ambulatory MARKOS ARELLANO Not Available Start: 03-08-2024 End: 03-08-2024 Office outpatient visit 25 minutes Markos Arellano MD Work Phone: [facility] Comment on above: Type 2 diabetes ghassan itus with hyperglycemia, without long-term current use of insulin (CMS/HCC) (Primary Dx); Essential hypertension, benign (CMS/HCC); Right upper quadrant abdominal pain; Non-alcoholic fatty liver disease; Immunodeficiency due to conditions classified elsewhere (CMS/HCC) Start: 03-08-2024 End: 03-08-2024 Bamboo flowsheet Markos Arellano MD Work Phone: [facility] Start: 03-08-2024 End: 03-08-2024 Bamboo flowsheet Markos Arellano MD Work Phone: [...] examination without abnormal findings DR MARKOS ARELLANO [facility] Start: 09-10-2021 End: 09-11-[address] MARKOS ARELLANO Facility:[facility] Start: 09-10-2021 End: 09-11-2021 Encounter for general adult medical examination without abnormal findings DR MARKOS ARELLANO Facility:[facility] Start: 08-16-2021 End: 08-18-2021 Evaluation and management of inpatient DR ANNA THACKER Facility:[facility] Start: 07-02-2021 End: 07-02-2021 ambulatory Girma Tan Other [email or web address] Other Start: 07-02-2021 Telephone encounter [facility] Start: 06-24-2021 End: 06-24-2021 ambulatory Girma Tan Other [email or web address] Other Start: 06-24-2021 Telephone encounter Girma Chang [facility] [employer] Start: 06-11-2021 End: 06-11-2021 ambulatory Girma Tan Other [email or web address] Other Start: 06-11-2021 Nutrition therapy Girma Garcia [facility] Start: 03-18-2021 End: 03-18-2021 ambulatory Stacie Muro Other [email or web address] Other Start: 03-18-2021 Telephone encounter Stacie Garcia [facility] Start: 03-07-2021 Office outpatient visit 25 minutes Oskar OROSCO [facility] Procedures Date Procedure Procedure Detail Performing Clinician Start: 09-10-[address] MARKOS MCINTOSH Comment on above: Performed By: #### C [facility] #### [facility] [address] [place] [address] Dr. Marta Ashford Start: 01-28-2021 Colonoscopy Markos gómez MD Work Phone: Plan of Treatment Date Care Activity Detail Author Start: 01-28-2031 Screening for malign ant neoplasm of colon [facility] Start: 10-01-2025 Glaucoma screening Diabetes: R etinopathy Screening [facility] Start: 12-24-2024 Urine screening for protein Diabetes: Urine Protein Screening [facility] Start: 06-26-2024 Hemoglobin A1c measurement Diabetes: Hemoglobin A1C [facility] Start: 05-27-2024 End: 05-27-2024 Patient encounter procedure 05/27/2024 9:00 AM EST Office Visit [facility] [address] [place] [phone] Markos Arellano MD [address] [place] [address] [facility] Start: 03-08-2024 End: 03-08-2025 CT Abdomen and Pelvis WO and W contrast IV CT abdomen pelvis w and wo IV contrast Imaging Routine Right upper quadrant abdominal pain Non-alcoholic fatty liver disease Expected: 03/08/2024, Expires: 03/08/2025 [facility] Work Phone: Comment on above: Expected: 03/08/2024 , Expires: 03/08/2025 Start: 02-19-2024 End: 02-19-2024 Patient encounter procedure 02/19/2024 9:45 AM EDT Office Visit [facility] [address] [place] [address] Markos Arellano MD [address] [place] [phone] Arrived [facility] Comment on above: Arrived Start: 01-10-2024 Influenza vaccination Influenza Vacc ine (#1) [facility] Start: 1981 Urine screening for protein Diabetes: Urine Protein Screening [facility] Start: 1960 Hemoglobin A1c measurement Diabetes: Hemoglobin A1C [facility] Start: 1960 Screening for malign ant neoplasm of colon [facility] Immunizations Immunization Date Immunization Notes Care Provider Candida balderas 02-18-2023 influenza virus vacc ine, unspecified formulation Markos Arellano MD Work Phone: [facility] Payers Date Payer Category Payer Private Health Insurance [id number] 1962 Unknown [id number] 2.16.84 [id number] 1962 Unknown [id number] 2.16.84 [id number] 1962 Unknown [id number] 2.16.84 [id number] 1962 Unknown [id number] 2.16.84 [id number] 1962 Unknown [id number] 2.16.84 [id number] 1962 Unknown [id number] 2.16.84 [id number] 1962 Unknown [id number] 2.16.84 [id number] 1962 Unknown [id number] 2.16.84 [id number] 1962 Unknown [id number] 2.16.84 [id number] 1959 Unknown [id number] 2.16.8 [id number] Social History Date Type Detail Facility Start: 02-19-2024 End: 03-08-2024 Sex Assigned At [facility] Other Start: 07-01-2023 Tobacco smoking status NCIS Never smoked tobacco [facility] Start: 07-01-2023 Tobacco use and exposure Smokeless tobacco non-user [facility] Start: 02-19-2024 End: 03-08-2024 History of Social function [facility] Start: 1960 Sex assigned at Not on file [facility] Medical Equipment Procedure Code Equipment Code Equipment Origin al Text Equipment Identifier Dates 1 each by Other route if needed (1x daily) Use as instructed [id number] Start: 04-30-2023 History of Present illness Narrative 03-08-2024 Markos Arellano MD - 03/08/2024 3:33 PM Joao Arellano MD - 03/08/2024 3:33 PM Joao Arellano MD - 03/08/2024 3:33 PM Joao Arellano MD - 03/08/2024 3:33 PM EDT Note Date & Type Note Facility 03-08-2024 History of Presen t illness Narrative Associated Problem(s): Type 2 diabetes mellitus with hyperglycemia, without long-term current use of insulin (CMS/HCC) Reports BS improved and take meds daily. Stick to ADA diet and limit carbs. Associated Problem(s): Non-alcoholic fatty liver disease Fatty liver and refer to GI. Associated Problem(s): Essential hypertension, benign (CMS/HCC) BP controlled and monitor PRN. Associated Problem(s): Right upper quadrant abdominal pain Continued pain and fatty liver. Tender lump palpable on exam possibly related to enlarged liver or ventral hernia. Check CT abdomen. Images from the original note were not included. Subjective Patient ID: Mike Badillo is a 64 y.o. male who presents for Follow-up (Still having abdominal pain). Follow up DM, HTN, and abdominal pain. Continues to have pain. Pain in RUQ and under edge of ribs. Pain with sitting and bending. 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 Pain in RUQ and deep into abdomen. Occasional pain through under scapula. Mild nausea but no emesis. Denies bulging to abdominal wall. Abdomen very tender with palpation. Prior EGD and colonoscopy years ago. Previously told fatty liver. US showed dilated bile duct but HIDA normal. US showed mild fatty liver. Reports BS much improved and 14 day average 140. Tries to eat well and stick to ADA diet. Denies signs of elevated BS such as polyuria, polyphagia or polydipsia. Checking BP PRN and typically controlled. BP normal today. Taking medication daily and tolerating without side effects. Review of Systems Constitutional: Negative for fatigue. Respiratory: Negative for cough, shortness of breath and wheezing. Cardiovascular: Negative for chest pain and palpitations. Gastrointestinal: Positive for abdominal pain. Negative for diarrhea, nausea and vomiting. Genitourinary: Negative for [...] Abdomen is soft. Tenderness: There is no guarding or rebound. Comments: TTP RUQ and lump palpable in RUQ Musculoskeletal: Left lower leg: No edema. Neurological: Mental Status: He is alert. Assessment/Plan Problem List Items Addressed This Visit Essential hypertension, benign (CMS/HCC) BP controlled and monitor PRN. Type 2 diabetes mellitus with hyperglycemia, without long-term current use of insulin (CMS/HCC) - Primary Reports BS improved and take meds daily. Stick to ADA diet and limit carbs. Right upper quadrant abdominal pain Continued pain and fatty liver. Tender lump palpable on exam possibly related to enlarged liver or ventral hernia. Check CT abdomen. Relevant Orders CT abdomen pelvis w and wo IV contrast Non-alcoholic fatty liver disease Fatty liver and refer to GI. Relevant Orders CT abdomen pelvis w and wo IV contrast Ambulatory referral to Gastroenterology documented in this encounter [facility] History of Present illness Narrative 02-19-2024 Markos [...] daily Aspirin therapy. documented in this encounter [facility] Evaluation note 06-11-2021 Note Date & Type [...] Jun, Metabolic syndrome X (ICD-10 - E88.81) [email or web address] Other Evaluation note 03-07-2021 Note Date & [...] LOSS WILL SEND REFERRAL TO DR. NICE [email or web address] Other Evaluation note Note Date & Type Note Facility Evaluation note No Information [employer] Other Evaluation note Note Date & Type Note Facility Evaluation note Diagnosis Annual physical exam- Primary Routine general medical examination at a health care facility Type 2 diabetes mellitus with hyperglycemia, without long-term current use of insulin ([facility]CC) Essential hypertension, benign (CMS/HCC) Essential hypertension, benign Right upper quadrant abdominal pain Body mass index (BMI) 37.0-37.9, adult documented in this encounter [facility] Evaluation note Note Date & Type Note Facility Evaluation note Diagnosis Type 2 diabetes mellitus with hyperglycemia, without long-term current use of insulin ([facility]/HCC)- Primary Essential hypertension, benign (CMS/HCC) Essential hypertension, benign Gastroesophageal reflux disease without esophagitis Esophageal reflux Type 2 diabetes mellitus with hyperglycemia, without long-term current use of insulin ([facility]/HCC)- Primary Essential hypertension, benign (CMS/HCC) Essential hypertension, benign Gastroesophageal reflux disease without esophagitis Esophageal reflux Lumbar strain, initial encounter Annual physical exam Routine general medical examination at a health care facility Erectile dysfunction associated with type 2 diabetes mellitus ([facility]) Type II or unspecified type diabetes mellitus without mention of complication, not stated as uncontrolled Acute right-sided low back pain without sciatica- Primary Right upper quadrant abdominal pain Type 2 diabetes mellitus with hyperglycemia, without long-term current use of insulin ([facility]) Immunodeficiency due to conditions classified elsewhere ([facility]) Annual physical exam- Primary Routine general medical examination at a health care facility Type 2 diabetes mellitus with hyperglycemia, without long-term current use of insulin ([facility]) Essential hypertension, benign (CMS/HCC) Essential hypertension, benign Right upper quadrant abdominal pain Body mass index (BMI) 37.0-37.9, adult Type 2 diabetes mellitus with hyperglycemia, without long-term current use of insulin ([facility])- Primary Essential hypertension, benign (CMS/HCC) Essential hypertension, benign Right upper quadrant abdominal pain Non-alcoholic fatty liver disease Immunodeficiency due to conditions classified elsewhere ([facility]) documented in this encounter [facility] History general Narrative - Reported Note Date & Type Note Facility History general Narrative - Reported Type Medical History Arthritis Medical History [facility] Medical History type II diabetes [email or web address] Other Reason for Referral Reason FORM -EVAL AND TREAT Diagnosis 1 Fatty liver (K76.0) Referral Organization [facility] Referring Provider First Name Oskar Referring Provider Last Name Elizabeth Referring Provider Specialty Gastroenter ology Referred Organization [facility] Referred Provider Girma Tan Jr. Referred Address [address] [place] [address],[address],[place], [place],[address] Referred Provider Specialty Internal Med icine Referral [...] content) Reason Comments Follow-up 2m f/up wellness Reason Comments Follow-up Still having abdomin al pain (unrecognized sect ion and content) No Status Records FoundNo Status Records FoundNo Status Records Found INFORMATION SOURCE (unrecogn ized section and content) DATE CREATED AUTHOR 12/10/2021 [facility] DATE CREATED AUTHOR AUTHOR'S ORGANIZ ATION 08/04/2022 [facility] DATE CREATED AUTHOR AUTHOR'S ORGANIZ ATION 03/10/2024 [facility] Care Teams (unrecognized sec tion and content) Market Research Coordinator Relationship Specialty Start Date End Date Markos Arellano MD [address] [place] [phone] PCP - General Family Medicine 06/08/23 Market Research Coordinator Relationship Specialty Start Date End Date Markos Arellano MD [address] [place] [phone] PCP - General Family Medicine 06/08/23 Market Research Coordinator Relationship Specialty Start Date End Date Markos Arellano MD [address] [place] [phone] PCP - General Family Medicine 06/08/23 Market Research Coordinator Relationship Specialty Start Date End Date Markos Arellano MD [address] [place] [phone] PCP - General Family Medicine 06/08/23 FOR [...] BE BASED ON THE PRIMARY CLINICAL RECORDS. [facility]. provides no warranty or guarantee of the accuracy or completeness of information in this document.
--- NOTE | 2024-03-15 12:10 | CT_ITS ---
[address] [address] Patient Name: DAVID GUARDADO MRN: [id number] date: 1960 Sex: M Assigned Patient Location: LAB Current Patient Location: LAB Accession/Order Number: [id number] Exam Date: 03/15/2024 12:45 Report Date: 03/16/2024 12:01 At the request of: RENETTA ARELLANO Procedure: CT abdomen pelvis wo/w con EXAMINATION: CT abdomen pelvis wo/w con HISTORY: Right Upper Quadrant Pain , Non Alcoholic Fatty Liver COMPARISON: 08/16/2021 TECHNIQUE: Axial, Coronal, and Sagittal images were created without and with non-ionic intravenous contrast material. Dose reduction techniques were achieved by using automated exposure control and/or adjustment of mA and/or kV according to patient size and/or use of iterative reconstruction technique. FINDINGS: LUNG BASES: No visible pulmonary or pleural disease. LIVER: Diffuse hypoattenuation the liver consistent with hepatic steatosis BILIARY: No dilatation or calcification. PANCREAS: No lesion, fluid collection, ductal dilatation, or atrophy. SPLEEN: No enlargement or focal lesion. ADRENALS: No mass or enlargement. KIDNEYS: No mass, obstruction, or calcification. BOWEL/MESENTERY: Moderate colonic diverticulosis without evidence of acute diverticulitis. Nonobstructive bowel gas pattern. Normal appendix AORTA/VASCULAR: No aneurysm or dissection. RETROPERITONEUM: No mass or adenopathy. LYMPH NODES: No adenopathy. URINARY BLADDER: No visible focal wall thickening, lesion, or calculus. PELVIC ORGANS: Normal prostate size. Prostate calcifications. ABDOMINAL WALL: No mass or hernia. BONES: No bony lesion or fracture. OTHER: Negative. CT/CT abdomen pelvis wo/w con IMPRESSION: Hepatic steatosis No acute intraperitoneal abnormality Electronically authenticated by: JAYDEN MARTINEZ Date: 03/16/2024 12:01
== END 2024-03-15 07:01 | disposition home or self-care (01) ==
LOC: LAB 07:00
PROVIDERS: PCP Family Medicine; Visit Provider Family Medicine
DX: R10.11 Right upper quadrant pain (principal); K76.0 Fatty (change of) liver, not elsewhere classified
CPT/HCPCS: 36415; 74178; 82565; Q9966

== ENCOUNTER 2024-03-15 08:21 | Outpatient (OUT) | payer OTHER, SELFPAY ==
--- OUTSIDE RECORDS SUMMARY | 2024-03-15 08:27 | XMS_ITS | CCD ---
Author Organization [facility] Care Team Providers Care Financial Market Dealer Name Role Phone Oskar Johnson Unavailable [phone] Stacie Muro Unavailable DominickGirma laura Unavailable ADAN, [...] Unavailable NADERER, DR MARKOS Cobb Consulting Unavailable WHITEHALL, DR CASTILLO Primary Care Unavailable YOLI ., DR CASTILLO Consulting Unavailable NADERER, DR MARKOS Cobb Admitting Unavailable NADERER, DR MARKOS Cobb Attending Unavailable NADERER, DR MARKOS Cobb Consulting Unavailable STEPHANIE, MISBAH Consulting Unavailable LAITH, SHAIKH Isaac Consulting Unavailable KIZZY SINHA Consulting Unavailable ROVERTO GREENFIELD Consulting Unavailable Markos Arellano MD Primary Care Provider ADAN, MARKOS Attending Unavailable NADERER, MARKOS Attending [...] hyperglycemia, without long-term current use of insulin ([facility]) Take 1 tablet (4 mg) by mouth [...] hyperglycemia, without long-term current use of insulin ([facility]) Inject 2 mg under the skin 1 [...] Translations: [Immunodeficiency due to conditions classified elsewhere ([facility])] 03-08-2024 Chronic Osteoarthritis (4 sources) Osteoarthritis of [...] Resolved: 03-07-2021 Episodic Other aftercare (1 source) residential (current) use of oral hypoglycemic drugs; 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 Marta Ashford Glucose [Mass/Vol] 243 mg/dL Normal [facility] Comment on above: Performed By: #### C JIMENA #### [facility] [address], [place] [address] Dr. Marta Ashford HbA1c (Bld) [Mass fraction] 10.1 % Critically high 4.5-6.2 [facility] Comment on above: Performed By: #### C BCMAN #### [facility] [address] [place] [address] Dr. Marta Ashford GLYCOHEMOGLOBIN A1Con 2021 ADA RECOMMENDATION SEE BELOW Normal [facility] Comment on above: Result Comment: ADA RECOMMENDED LIMIT 4.0 - 6.0 ADA THERAPEUTIC TARGET < 7.0 ACTION SUGGESTED > 7.0 Performed By: #### A 1C #### [facility] [address] [place] [address] Dr. Marta Ashford Glucose [Mass/Vol] 266 mg/dL Normal [facility] Comment on above: Performed By: #### A 1C #### [facility] [address] [place] [address] Dr. Marta Ashford HbA1c (Bld) [Mass fraction] 10.9 % Critically high 4.5-6.2 [facility] Comment on above: Performed By: #### A 1C #### [facility] [address] [place] [address] Dr. Marta Ashford CBC AUTO DIFFon 09-10-2021 BASO # 0.1 103/ul Normal 0.0-0.1 [facility] Comment on above: Performed By: #### A 1C #### [facility] [address] [place] [address] Dr. Marta Ashford Basophils/100 WBC (Bld) 0.7 % Normal 0.2-2.0 [facility] Comment on above: Performed By: #### A 1C #### [facility] [address] [place] [address] Dr. Marta Ashford EO # 0.3 103/ul Normal 0.0-0.7 [facility] Comment on above: Performed By: #### A 1C #### [facility] [address] [place] [address] Dr. Marta Ashford Eosinophils/100 WBC (Bld) 2.9 % Normal 0.9-7.0 [facility] Comment on above: Performed By: #### A 1C #### [facility] [address] [place] [address] Dr. Marta Ashford Erythrocyte distribution width (RBC) [Ratio] 12.6 % Normal 11.0-15.0 [facility] Comment on above: Performed By: #### A 1C #### [facility] [address] [place] [address] Dr. Marta Ashford Hematocrit (Bld) [Volume fraction] 45.0 % Normal 42.0-54.0 [facility] Comment on above: Performed By: #### A 1C #### [facility] [address] [place] [address] Dr. Marta Ashford Hemoglobin (Bld) [Mass/Vol] 14.4 g/dL Normal 14.0-18.0 [facility] Comment on above: Performed By: #### A 1C #### [facility] [address] [place] [address] Dr. Marta Ashford IG # 0.06 10e3/ul Critically high 0.00-0.03 [facility] Comment on above: Performed By: #### A 1C #### [facility] [address] [place] [address] Dr. Marta Ashford IG % 0.6 % Critically high 0.0-0.5 [facility] Comment on above: Performed By: #### A 1C #### [facility] [address] [place] [address] Dr. Marta Ashford LYMPH # 3.3 103/ul Normal 1.2-3.8 [facility] Comment on above: Performed By: #### A 1C #### [facility] [address] [place] [address] Dr. Marta Ashford Lymphocytes/100 WBC (Bld) 34.5 % Normal 20.5-60.0 [facility] Comment on above: Performed By: #### A 1C #### [facility] [address] [place] [address] Dr. Marta Ashford MANUAL DIFF REQ NO Normal [facility] Comment on above: Performed By: #### A 1C #### [facility] [address] [place] [address] Dr. Marta Ashford MCH (RBC) [Entitic mass] 31.0 pg Normal 25.9-34.0 [facility] Comment on above: Performed By: #### A 1C #### [facility] [address] [place] [address] Dr. Marta Ashford MCHC (RBC) [Mass/Vol] 32.0 g/dL Normal 29.9-35.2 [facility] Comment on above: Performed By: #### A 1C #### [facility] [address] [place] [address] Dr. Marta Ashford MCV (RBC) [Entitic vol] 96.8 fL Critically high 80.0-94.0 [facility] Comment on above: Performed By: #### A 1C #### [facility] [address] [place] [address] Dr. Marta Ashford MONO # 0.7 103/ul Normal 0.3-0.8 [facility] Comment on above: Performed By: #### A 1C #### [facility] [address] [place] [address] Dr. Marta Ashford Monocytes/100 WBC (Bld) 7.8 % Normal 1.7-12.0 [facility] Comment on above: Performed By: #### A 1C #### [facility] [address] [place] [address] Dr. Marta Ashford NEUT # 5.1 103/ul Normal 1.4-6.5 [facility] Comment on above: Performed By: #### A 1C #### [facility] [address] [place] [address] Dr. Marta Ashford Neutrophils/100 WBC (Bld) 53.5 % Normal 43.0-75.0 [facility] Comment on above: Performed By: #### A 1C #### [facility] [address] [place] [address] Dr. aMrta Ashford Platelet mean volume (Bld) [Entitic vol] 12.3 fL Normal 9.5-13.5 [facility] Comment on above: Performed By: #### A 1C #### [facility] [address] [place] [address] Dr. Marta Ashford PLT 170 103/ul Normal 150-450 [facility] Comment on above: Performed By: #### A 1C #### [facility] [address] [address] [address] Marta Ashford RBC 4.65 106/ul Critically low 4.70-6.10 [facility] Comment on above: Performed By: #### A 1C #### [facility] [address] [address] [address] Marta Ashford WBC 9.5 103/ul Normal 4.0-11.0 [facility] Comment on above: Performed By: #### A 1C #### [facility] [address] [address] [address] Marta Ashford DIRECT LDLon 09-10-2021 Cholesterol in LDL [Mass/Vol] 96 mg/dL Normal [facility] Comment on above: Performed By: #### C JIMENA #### [facility] [address] [address] [address] Marta Ashford DLDL NORMAL SEE BELOW Normal [facility] Comment on above: Result Comment: <100 mg/dl OPTIMAL 100 - 129 mg/dl NEAR OR ABOVE OPTIMAL 130 - 159 mg/dl BORDERLINE HIGH 160 - 189 mg/dl HIGH >190 mg/dl VERY HIGH Performed By: #### C JIMENA #### [facility] [address] [address] [address] Marta Ashford GLYCOHEMOGLOBIN A1Con 2021 ADA RECOMMENDATION SEE BELOW Normal [facility] Comment on above: Result Comment: ADA RECOMMENDED LIMIT 4.0 - 6.0 ADA THERAPEUTIC TARGET < 7.0 ACTION SUGGESTED > 7.0 Performed By: #### A 1C #### [facility] [address] [address] [address] Marta Ashford Glucose [Mass/Vol] 223 mg/dL Normal [facility] Comment on above: Performed By: #### A 1C #### [facility] [address] [address] [address] Marta Ashford HbA1c (Bld) [Mass fraction] 9.4 % Critically high 4.5-6.2 [facility] Comment on above: Performed By: #### A 1C #### [facility] [address] [address] [address] Marta Ashford LIPID PROFILEon 09-10-2021 CHOL-HDL RATIO NORM SEE BELOW Normal [facility] [place] [facility] Comment on above: Result Comment: 3.3 - 4.4 LOW RISK 4.4 - 7.1 AVERAGE RISK 7.1 - 11.0 MODERATE RISK >11.0 HIGH RISK Performed By: #### C JMIENA #### [facility] [address] [address] [address] Marta Ashford Cholesterol [Mass/Vol] 209 mg/dL Critically high <=200 [facility] Comment on above: Performed By: #### C JIMENA #### [facility] [address] [address] [address] Marta Ashford Cholesterol in HDL [Mass/Vol] 34 mg/dL Critically low 40-60 [facility] Comment on above: Performed By: #### C JIMENA #### [facility] [address] [address] [address] Marta Ashford Cholesterol.total/Chol esterol in HDL [Mass ratio] 6.1 {ratio} Normal [facility] Comment on above: Performed By: #### C JIMENA #### [facility] [address] [address] [address] Marta Ashford HDL NORMAL > or = 60 mg/dl - LO W CARDIOVASCULAR RISK <40 mg/dl - HIGH CARDIOVASCULAR RISK Normal [facility] Comment on above: Performed By: #### C JIMENA #### [facility] [address] [address] [address] Marta Ashford LDL CALC NORMAL SEE BELOW Normal [facility] Comment on above: Result Comment: <100 mg/dl OPTIMAL 100 - 129 mg/dl NEAR OR ABOVE OPTIMAL 130 - 159 mg/dl BORDERLINE HIGH 160 - 189 mg/dl HIGH >190 mg/dl VERY HIGH Performed By: #### C JIMENA #### [facility] [address] [address] [address] Marta Ashford Triglyceride [Mass/Vol] 591 mg/dL Critically high <=150 [facility] Comment on above: Performed By: #### C JIMENA #### [facility] [address] [address] [address] Marta Ashford VLDL CALC 118.2 mg/dL Normal [facility] Comment on above: Performed By: #### C JIMENA #### [facility] [address] [place] [address] Dr. Marta Ashford LIVER PROFILEon 09-10-2021 Albumin [Mass/Vol] 3.6 g/dL Normal 3.4-5.0 [facility] Comment on above: Performed By: #### C JIMENA #### [facility] [address] [address] [address] Marta Ashford Albumin/Globulin [Mass ratio] 0.9 {ratio} Normal [facility] Comment on above: Performed By: #### C JIMENA #### [facility] [address] [place] [address] Dr. Marta Ashford ALP [Catalytic activity/Vol] 75 U/L Normal 46-116 [facility] Comment on above: Performed By: #### C JIMENA #### [facility] [address] [place] [address] Dr. Marta Ashford ALT [Catalytic activity/Vol] 40 U/L Normal 16-63 [facility] Comment on above: Performed By: #### C JIMENA #### [facility] [address] [place] [address] Dr. Marta Ashford AST [Catalytic activity/Vol] 24 U/L Normal 15-37 [facility] Comment on above: Performed By: #### C JIMENA #### [facility] [address] [place] [address] Dr. Marta Ashford BILI, CONJUGATED 0.1 mg/dL Normal 0.0-0.2 [facility] Comment on above: Performed By: #### C JIMENA #### [facility] [address] [place] [address] Dr. Marta Ashford Bilirubin [Mass/Vol] 0.3 mg/dL Normal 0.2-1.0 [facility] Comment on above: Performed By: #### C JIMENA #### [facility] [address] [address] [address] Marta Ashford Globulin (S) [Mass/Vol] 4.1 g/dL Normal [facility] Comment on above: Performed By: #### C JIMENA #### [facility] [address] [place] [address] Dr. Marta Ashford Protein [Mass/Vol] 7.7 g/dL Normal 6.1-8.2 [facility] Comment on above: Performed By: #### C JIMENA #### [facility] [address] [place] [address] Dr. Marta Ashford PROF CHEM 8 (BAS METB)on Anion gap [Moles/Vol] 11.0 mmol/L Normal [facility] Comment on above: Performed By: #### C JIMENA #### [facility] [address] [place] [address] Dr. Marta Ashford Calcium [Mass/Vol] 8.6 mg/dL Normal 8.5-10.1 [facility] Comment on above: Performed By: #### C JIMENA #### [facility] [address] [place] [address] Dr. Marta Ashford Chloride [Moles/Vol] 99 mmol/L Normal 98-107 [facility] Comment on above: Performed By: #### C JIMENA #### [facility] [address] [place] [address] Dr. Marta Ashford CO2 [Moles/Vol] 27.0 mmol/L Normal 21.0-32.0 [facility] Comment on above: Performed By: #### C BCVALERY #### [facility] [address] [place] [address] Dr. Marta Ashford Creatinine [Mass/Vol] 1.00 mg/dL Normal 0.70-1.30 [facility] Comment on above: Performed By: #### C JIMENA #### [facility] [address] [place] [address] Dr. Marta Ashford EGFR-AF TANZANIAN >60 Normal >=60 [facility] Comment on above: Performed By: #### C JIMENA #### [facility] [address] [address] [address] Marta Ashford EGFR-NON AF TANZANIAN >60 Normal >=60 [facility] Comment on above: Performed By: #### C JIMENA #### [facility] [address] [address] [address] Marta Ashford Glucose [Mass/Vol] 289 mg/dL Critically high 74-106 [facility] Comment on above: Performed By: #### C JIMENA #### [facility] [address] [address] [address] Marta Ashford Potassium [Moles/Vol] 4.0 mmol/L Normal 3.5-5.1 [facility] Comment on above: Performed By: #### C JIMENA #### [facility] [address] [address] [address] Marta Ashford Sodium [Moles/Vol] 133 mmol/L Critically low 136-145 [facility] Comment on above: Performed By: #### C JIMENA #### [facility] [address] [address] [address] Marta Ashford Urea nitrogen [Mass/Vol] 21.0 mg/dL Critically high 7.0-18.0 [facility] Comment on above: Performed By: #### C JIMENA #### [facility] [address] [address] [address] Marta Ashford Urea nitrogen/Creatinine [Mass ratio] 21.0 mg/mg Normal [facility] Comment on above: Performed By: #### C JIMENA #### [facility] [address] [address] [address] Marta Ashford TSHon 09-10-2021 TSH 2.331 uIU/mL Normal 0.470-4.680 [facility] Comment on above: Performed By: #### C JIMENA #### [facility] [address] [place] [address] Dr. Marta Ashford TSH RANGE SEE BELOW Normal [facility] Comment on above: Result Comment: <0.3 4 UIU/ml HYPERTHYROID 0.34-5.60 UIU/ml EUTHYROID >5.60 UIU/ml HYPOTHYROID Performed By: #### C BCMAN #### [facility] [address] [place] [address] Dr. Marta Ashford BLOOD CULTURE ID/SENSon 08-09 Aerobe ID + Suscept Final report Abnormal [facility] Comment on above: Performed By: #### C XPOSBL #### [facility] [address] [place] [address] Dr. Marta Ashford Antimicrobial Susceptibility Comment Normal [facility] Comment on above: Result Comment: S [...] By: #### C XPOSBL #### [facility] [address] [place] [address] Dr. Marta Ashford Result 1 Comment Abnormal [facility] Comment on above: Result Comment: Esch erichia coli, identified by an automated biochemical system. Received aerobic bottle only. Performed By: #### C XPOSBL #### [facility] [address] [place] [address] Dr. Marta Ashford CBC AUTO DIFFon 08-18-2021 BASO # 0.1 103/ul Normal 0.0-0.1 [facility] Comment on above: Performed By: #### A 1C #### [facility] [address] [place] [address] Dr. Marta Ashford Basophils/100 WBC (Bld) 0.5 % Normal 0.2-2.0 [facility] Comment on above: Performed By: #### A 1C #### [facility] [address] [place] [address] Dr. Marta Ashford EO # 0.1 103/ul Normal 0.0-0.7 [facility] Comment on above: Performed By: #### A 1C #### [facility] [address] [address] [address] Marta Ashford Eosinophils/100 WBC (Bld) 0.8 % Critically low 0.9-7.0 [facility] Comment on above: Performed By: #### A 1C #### [facility] [address] [place] [address] Dr. Marta Ashford Erythrocyte distribution width (RBC) [Ratio] 12.8 % Normal 11.0-15.0 [facility] Comment on above: Performed By: #### A 1C #### [facility] [address] [place] [address] Dr. Marta Ashford Hematocrit (Bld) [Volume fraction] 40.1 % Critically low 42.0-54.0 [facility] Comment on above: Performed By: #### A 1C #### [facility] [address] [place] [address] Dr. Marta Ashford Hemoglobin (Bld) [Mass/Vol] 12.9 g/dL Critically low 14.0-18.0 [facility] Comment on above: Performed By: #### A 1C #### [facility] [address] [place] [address] Dr. Marta Ashford IG # 0.17 10e3/ul Critically high 0.00-0.03 [facility] Comment on above: Performed By: #### A 1C #### [facility] [address] [place] [address] Dr. Marta Ashford IG % 1.0 % Critically high 0.0-0.5 [facility] Comment on above: Performed By: #### A 1C #### [facility] [address] [place] [address] Dr. Marta Ashford LYMPH # 3.3 103/ul Normal 1.2-3.8 [facility] Comment on above: Performed By: #### A 1C #### [facility] [address] [place] [address] Dr. Marta Ashford Lymphocytes/100 WBC (Bld) 19.0 % Critically low 20.5-60.0 [facility] Comment on above: Performed By: #### A 1C #### [facility] [address] [place] [address] Dr. Marta Ashford MANUAL DIFF REQ NO Normal [facility] Comment on above: Performed By: #### A 1C #### [facility] [address] [place] [address] Dr. Marta Ashford MCH (RBC) [Entitic mass] 30.5 pg Normal 25.9-34.0 [facility] Comment on above: Performed By: #### A 1C #### [facility] [address] [place] [address] Dr. Marta Ashford MCHC (RBC) [Mass/Vol] 32.2 g/dL Normal 29.9-35.2 [facility] Comment on above: Performed By: #### A 1C #### [facility] [address] [place] [address] Dr. Marta Ashford MCV (RBC) [Entitic vol] 94.8 fL Critically high 80.0-94.0 [facility] Comment on above: Performed By: #### A 1C #### [facility] [address] [place] [address] Dr. Marta Ashford MONO # 1.2 103/ul Critically high 0.3-0.8 [facility] Comment on above: Performed By: #### A 1C #### [facility] [address] [place] [address] Dr. Marta Ashford Monocytes/100 WBC (Bld) 6.7 % Normal 1.7-12.0 [facility] Comment on above: Performed By: #### A 1C #### [facility] [address] [place] [address] Dr. Marta Ashford NEUT # 12.5 103/ul Critically high 1.4-6.5 [facility] Comment on above: Performed By: #### A 1C #### [facility] [address] [place] [address] Dr. Marta Ashford Neutrophils/100 WBC (Bld) 72.0 % Normal 43.0-75.0 [facility] Comment on above: Performed By: #### A 1C #### [facility] [address] [address] [address] Marta Ashford Platelet mean volume (Bld) [Entitic vol] 11.8 fL Normal 9.5-13.5 [facility] Comment on above: Performed By: #### A 1C #### [facility] [address] [address] [address] Marta Ashford PLT 149 103/ul Critically low 150-450 [facility] Comment on above: Performed By: #### A 1C #### [facility] [address] [address] [address] Marta Ashford RBC 4.23 106/ul Critically low 4.70-6.10 [facility] Comment on above: Performed By: #### A 1C #### [facility] [address] [place] [address] Dr. Marta Ashford WBC 17.4 103/ul Critically high 4.0-11.0 [facility] Comment on above: Performed By: #### A 1C #### [facility] [address] [place] [address] Dr. Marta Ashford CULTURE URINEon 08-18-2021 CULTURE [...] <=20 S F Normal [facility] Comment on above: Performed By: #### A 1C #### [facility] [address] [place] [address] Dr. Marta Ashford PH VENOUS BLOODon 08-18-2021 PCO2 VENOUS 36.1 mmHg Critically low 40.0-52.0 [facility] Comment on above: Performed By: #### A 1C #### [facility] [address] [address] [address] Marta Ashford pH VENOUS 7.452 Critically high 7.330-7.430 [facility] Comment on above: Performed By: #### A 1C #### [facility] [address] [address] [address] Marta Ashford POINT OF CARE GLUCOSEon 04- Glucose [Mass/Vol] 276 mg/dL Critically high 74-106 [facility] [facility] Comment on above: Performed By: #### P OCGLUC #### [facility] [address] [address] [address] Marta Ashford PROF CHEM 8 (BAS METB)on Anion gap [Moles/Vol] 12.5 mmol/L Normal [facility] Comment on above: Performed By: #### P HVEN #### [facility] [address] [address] [address] Marta Ashford Calcium [Mass/Vol] 8.5 mg/dL Normal 8.5-10.1 [facility] Comment on above: Performed By: #### P HVEN #### [facility] [address] [place] [address] Dr. Marta Ashford Chloride [Moles/Vol] 105 mmol/L Normal 98-107 [facility] Comment on above: Performed By: #### P HVEN #### [facility] [address] [place] [address] Dr. Marta Ashford CO2 [Moles/Vol] 25.5 mmol/L Normal 22.0-30.0 [facility] Comment on above: Performed By: #### P HVEN #### [facility] [address] [place] [address] Dr. Marta Ashford Creatinine [Mass/Vol] 0.90 mg/dL Normal 0.66-1.25 [facility] Comment on above: Performed By: #### P HVEN #### [facility] [address] [place] [address] Dr. Marta Ashford EGFR-AF TANZANIAN >60 Normal >=60 [facility] Comment on above: Performed By: #### P HVEN #### [facility] [address] [address] [address] Marta Ashford EGFR-NON AF TANZANIAN >60 Normal >=60 [facility] Comment on above: Performed By: #### P HVEN #### [facility] [address] [address] [address] Marta Ashford Glucose [Mass/Vol] 239 mg/dL Critically high 74-106 [facility] Comment on above: Performed By: #### P HVEN #### [facility] [address] [address] [address] Marta Ashford Potassium [Moles/Vol] 4.0 mmol/L Normal 3.4-5.0 [facility] Comment on above: Performed By: #### P HVEN #### [facility] [address] [address] [address] Marta Ashford Sodium [Moles/Vol] 139 mmol/L Normal 137-145 [facility] Comment on above: Performed By: #### P HVEN #### [facility] [address] [address] [address] Marta Ashford Urea nitrogen [Mass/Vol] 13.0 mg/dL Normal 7.0-18.0 [facility] Comment on above: Performed By: #### P HVEN #### [facility] [address] [address] [address] Marta Ashford Urea nitrogen/Creatinine [Mass ratio] 14.4 mg/mg Normal [facility] Comment on above: Performed By: #### P HVEN #### [facility] [address] [address] [address] Marta Ashford CBC W MANUAL DIFFon 08-18-19 22 ATYPICAL LYMPH # Normal [facility] Comment on above: Performed By: #### C BCMAN #### [facility] [address] [address] [address] Marta Ashford ATYPICAL LYMPH % Normal [facility] Comment on above: Performed By: #### C BCVALERY #### [facility] [address] [address] [address] Marta Ashford BAND # 2.7 103/ul Critically high 0.0-0.3 [facility] Comment on above: Performed By: #### C JIMENA #### [facility] [address] [place] [address] Dr. Marta Ashford BAND % 15 % Critically high 0-5 [facility] Comment on above: Performed By: #### C JIMENA #### [facility] [address] [place] [address] Dr. Marta Ashford BASOM # 0.00 103/ul Normal 0.00-0.10 [facility] Comment on above: Performed By: #### C JIMENA #### [facility] [address] [place] [address] Dr. Marta Ashford BASOM % 0.0 % Critically low 0.2-2.0 [facility] Comment on above: Performed By: #### C JIMEAN #### [facility] [address] [place] [address] Dr. Marta Ashford BLAST # Normal [facility] Comment on above: Performed By: #### C JIMENA #### [facility] [address] [place] [address] Dr. Marta Ashford BLAST % Normal [facility] Comment on above: Performed By: #### C JIMENA #### [facility] [address] [place] [address] Dr. Marta Ashford CORRECTED WBC Normal 4.0-11.0 [facility] Comment on above: Performed By: #### C JIMENA #### [facility] [address] [place] [address] Dr. Marta Ashford EOS # 0.00 103/ul Normal 0.00-0.70 [facility] Comment on above: Performed By: #### C JIMENA #### [facility] [address] [place] [address] Dr. Marta Ashford EOS% 0.0 % Critically low 0.9-7.0 [facility] Comment on above: Performed By: #### C JIMENA #### [facility] [address] [address] [address] Marta Ashford HCT 37.5 % Critically low 42.0-54.0 [facility] Comment on above: Performed By: #### C JIMENA #### [facility] [address] [address] [address] Marta Ashford HGB 12.1 g/dl Critically low 14.0-18.0 [facility] Comment on above: Performed By: #### C JIMENA #### [facility] [address] [address] [address] Marta Ashford LYMPHM # 3.20 103/ul Normal 1.20-3.80 [facility] Comment on above: Performed By: #### C JIMENA #### [facility] [address] [place] [address] Dr. Marta Ashford LYMPHM% 18.0 % Critically low 20.5-60.0 [facility] Comment on above: Performed By: #### C JIMENA #### [facility] [address] [place] [address] Dr. Marta Ashford MCH 31.2 pg Normal 25.9-34.0 [facility] Comment on above: Performed By: #### C JIMENA #### [facility] [address] [place] [address] Dr. Marta Ashford MCHC 32.3 g/dl Normal 29.9-35.2 [facility] Comment on above: Performed By: #### C JIMENA #### [facility] [address] [place] [address] Dr. Marta Ashford MCV 96.6 fL Critically high 80.0-94.0 [facility] Comment on above: Performed By: #### C JIMENA #### [facility] [address] [place] [address] Dr. Marta Ashford METAMYELOCYTE # Normal [facility] Comment on above: Performed By: #### C JIMENA #### [facility] [address] [place] [address] Dr. Marta Ashford METAMYELOCYTE % Normal [facility] Comment on above: Performed By: #### C BCMAN #### [facility] [address] [address] [address] Marta Ashford MONOM# 1.25 103/ul Critically high 0.30-0.80 [facility] Comment on above: Performed By: #### C BCMAN #### [facility] [address] [address] [address] Marta Ashford MONOM% 7.0 % Normal 1.7-12.0 [facility] Comment on above: Performed By: #### C BCMAN #### [facility] [address] [address] [address] Marta Ashford MPV 11.4 fL Normal 9.5-13.5 [facility] Comment on above: Performed By: #### C BCMAN #### [facility] [address] [place] [address] Dr. Marta Ashford MYELOCYTE # Normal [facility] Comment on above: Performed By: #### C BCMAN #### [facility] [address] [address] [address] Marta Ashford MYELOCYTE % Normal [facility] Comment on above: Performed By: #### C BCMAN #### [facility] [address] [place] [address] Dr. Marta Ashford NRBC Normal [facility] Comment on above: Performed By: #### C BCVALERY #### [facility] [address] [address] [address] Marta Ashford PLT 106 103/ul Critically low 150-450 [facility] Comment on above: Performed By: #### C BCMAN #### [facility] [address] [address] [address] Marta Ashford RBC 3.88 106/ul Critically low 4.70-6.10 [facility] Comment on above: Performed By: #### C BCMAN #### [facility] [address] [address] [address] Marta Ashford RDW 13.1 % Normal 11.0-15.0 [facility] Comment on above: Performed By: #### C BCMAN #### [facility] [address] [address] [address] Marta Ashford SEG # 10.68 103/ul Critically high 1.40-6.50 [facility] Comment on above: Performed By: #### C BCMAN #### [facility] [address] [address] [address] Marta Ashford SEG % 60.0 % Normal 43.0-75.0 [facility] Comment on above: Performed By: #### C BCMAN #### [facility] [address] [address] [address] Marta Ashford WBC 17.8 103/ul Critically high 4.0-11.0 [facility] Comment on above: Performed By: #### C FANTASMAMAN #### [facility] [address] [address] [address] Marta Ashford PH VENOUS BLOODon 08-17-2021 PCO2 VENOUS 37.5 mmHg Critically low 40.0-52.0 [facility] Comment on above: Performed By: #### P HVEN #### [facility] [address] [address] [address] Marta Ashford pH VENOUS 7.390 Normal 7.330-7.430 [facility] Comment on above: Performed By: #### P HVEN #### [facility] [address] [address] [address] Marta Ashford POINT OF CARE GLUCOSEon Glucose [Mass/Vol] 261 mg/dL Critically high 74-106 [facility] Comment on above: Performed By: #### A 1C #### [facility] [address] [address] [address] Marta Ashford Glucose [Mass/Vol] 213 mg/dL Critically high [facility]106 [facility] Comment on above: Performed By: #### A 1C #### [facility] [address] [address] [address] Marta Ashford Glucose [Mass/Vol] 305 mg/dL Critically high -106 [facility] Comment on above: Performed By: #### A 1C #### [facility] [address] [place] [address] Dr. Marta Ashford PROF CHEM 8 (BAS METB)on Anion gap [Moles/Vol] 13.8 mmol/L Normal [facility] Comment on above: Performed By: #### A 1C #### [facility] [address] [place] [address] Dr. Marta Ashford Calcium [Mass/Vol] 7.3 mg/dL Critically low 8.5-10.1 [facility] Comment on above: Performed By: #### A 1C #### [facility] [address] [place] [address] Dr. Marta Ashford Chloride [Moles/Vol] 108 mmol/L Critically high 98-107 [facility] Comment on above: Performed By: #### A 1C #### [facility] [address] [place] [address] Dr. Marta Ashford CO2 [Moles/Vol] 22.2 mmol/L Normal 22.0-30.0 [facility] Comment on above: Performed By: #### A 1C #### [facility] [address] [place] [address] Dr. Marta Ashford Creatinine [Mass/Vol] 0.95 mg/dL Normal 0.66-1.25 [facility] Comment on above: Performed By: #### A 1C #### [facility] [address] [place] [address] Dr. Marta Ashford EGFR-AF TANZANIAN >60 Normal >=60 [facility] Comment on above: Performed By: #### A 1C #### [facility] [address] [place] [address] Dr. Marta Ashford EGFR-NON AF TANZANIAN >60 Normal >=60 [facility] Comment on above: Performed By: #### A 1C #### [facility] [address] [place] [address] Dr. Marta Ashford Glucose [Mass/Vol] 181 mg/dL Critically high 74-106 [facility] Comment on above: Performed By: #### A 1C #### [facility] [address] [address] [address] Marta Ashford Potassium [Moles/Vol] 4.0 mmol/L Normal 3.4-5.0 [facility] Comment on above: Performed By: #### A 1C #### [facility] [address] [address] [address] Marta Ashford Sodium [Moles/Vol] 140 mmol/L Normal 137-145 [facility] Comment on above: Performed By: #### A 1C #### [facility] [address] [address] [address] Marta Ashford Urea nitrogen [Mass/Vol] 17.0 mg/dL Normal 7.0-18.0 [facility] Comment on above: Performed By: #### A 1C #### [facility] [address] [place] [address] Dr. Marta Ashford Urea nitrogen/Creatinine [Mass ratio] 17.9 mg/mg Normal [facility] Comment on above: Performed By: #### A 1C #### [facility] [address] [place] [address] Dr. Marta Ashford BLOOD CULTURE ID PANELon A. baumannii Not detected Normal [facility] Comment on above: Performed By: #### A 1C #### [facility] [address] [address] [address] Marta GONSALEZD CONTROLS PASSED Normal [facility] Comment on above: Performed By: #### A 1C #### [facility] [address] [address] [address] Marta GONSALEZDBTHD BLOOD CULTURE BOTTLE INFORMATION Normal [facility] Comment on above: Performed By: #### A 1C #### [facility] [address] [place] [address] Dr. Marta Ashford BCIDHD1 ANTIMICROBIAL RESISTANCE GENES [facility] Comment on above: Performed By: #### A 1C #### [facility] [address] [address] [address] Marta Ashford BCIDHD2 SEE BELOW Normal [facility] Comment on above: Result Comment: KPC- carbapenem resistance gene, mecA- methecillin resistance gene, van A/B- vancomycin resistance gene Note: Antimicrobial resitance can occur via multiple mechanisms. A Not Detected result for the [employer] antomicrobial resistance gene assays does not indicate antimicrobial susceptibility. Subculturing is required for specis identificationand susceptibility testing of isolates. Performed By: #### A 1C #### [facility] [address] [place] [address] Dr. Marta Ashford BCIDHD3 Positive [facility] Comment on above: Performed By: #### A 1C #### [facility] [address] [place] [address] Dr. Marta Ashford BCIDHD4 Negative [facility] Comment on above: Performed By: #### A 1C #### [facility] [address] [place] [address] Dr. Marta Ashford BCIDHD5 YEAST Normal [facility] Comment on above: Performed By: #### A 1C #### [facility] [address] [place] [address] Dr. Marta Ashford BCIDHD6 SEE BELOW [facility] Comment on above: Result Comment: Note : All genus and species BCID [employer] results will be verified post subculturing via Maldi-Tof MS testing methodology. Performed By: #### A 1C #### [facility] [address] [place] [address] Dr. Marta Ashford Bottle Set: Set 2 [facility] Comment on above: Performed By: #### A 1C #### [facility] [address] [place] [address] Dr. Marta Ashford Bottle: Aerobic Normal [facility] Comment on above: Performed By: #### A 1C #### [facility] [address] [place] [address] Dr. Marta Ashford Surekha albicans Not detected Normal [facility] Comment on above: Performed By: #### A 1C #### [facility] [address] [place] [address] Dr. Marta Ashford Surekha glabrata Not detected Normal [facility] Comment on above: Performed By: #### A 1C #### [facility] [address] [address] [address] Marta Ashford Surekha Krusei Not detected Normal [facility] Comment on above: Performed By: #### A 1C #### [facility] [address] [place] [address] Dr. Marta Ashford Surekha Parapsilosis Not detected Normal [facility] Comment on above: Performed By: #### A 1C #### [facility] [address] [address] [address] Marta Ashford Surekha Tropicalis Not detected Normal [facility] Comment on above: Performed By: #### A 1C #### [facility] [address] [place] [address] Dr. Marta Ashford E. Cloacae complex Not detected Normal [facility] Comment on above: Performed By: #### A 1C #### [facility] [address] [place] [address] Dr. Marta Ashford Enterobacteriaceae Detected Critically abnormal [facility] Comment on above: Performed By: #### A 1C #### [facility] [address] [place] [address] Dr. Marta Ashford Enterococcus Not detected Normal [facility] Comment on above: Performed By: #### A 1C #### [facility] [address] [place] [address] Dr. Marta Ashford Escheria coli Detected Critically abnormal [facility] Comment on above: Performed By: #### A 1C #### [facility] [address] [place] [address] Dr. Marta Ashford K. oxytoca Not detected Normal [facility] Comment on above: Performed By: #### A 1C #### [facility] [address] [place] [address] Dr. Marta Ashford K. pneumoniae Not detected Normal [facility] Comment on above: Performed By: #### A 1C #### [facility] [address] [place] [address] Dr. Marta Ashford KPC Resistant Gene Not detected Normal [facility] Comment on above: Performed By: #### A 1C #### [facility] [address] [place] [address] Dr. Marta Ashford List. monocytogenes Not detected Normal [facility] Comment on above: Performed By: #### A 1C #### [facility] [address] [place] [address] Dr. Marta Ashford mecA Resistant Gene Not Applicable Normal [facility] Comment on above: Performed By: #### A 1C #### [facility] [address] [place] [address] Dr. Marta Ashford Proteus Not detected Normal [facility] Comment on above: Performed By: #### A 1C #### [facility] [address] [place] [address] Dr. Marta Ashford Pseud. aeruginosa Not detected Normal [facility] Comment on above: Performed By: #### A 1C #### [facility] [address] [place] [address] Dr. Marta Ashford Seratia marcescens Not detected Normal [facility] Comment on above: Performed By: #### A 1C #### [facility] [address] [place] [address] Dr. Marta Ashford Site: left hand Normal [facility] Comment on above: Performed By: #### A 1C #### [facility] [address] [place] [address] Dr. Marta Ashford Staph. aureus Not detected Normal [facility] Comment on above: Performed By: #### A 1C #### [facility] [address] [place] [address] Dr. Marta Ashford Staphylococcus Not detected Normal [facility] Comment on above: Performed By: #### A 1C #### [facility] [address] [place] [address] Dr. Marta Ashford Strep. agalactiae Not detected Normal [facility] Comment on above: Performed By: #### A 1C #### [facility] [address] [place] [address] Dr. Marta Ashford Strep. pneumoniae Not detected Normal [facility] Comment on above: Performed By: #### A 1C #### [facility] [address] [place] [address] Dr. Marta Ashford Strep. pyogenes Not detected Normal [facility] Comment on above: Performed By: #### A 1C #### [facility] [address] [place] [address] Dr. Marta Ashford Streptococcus Not detected Normal [facility] Comment on above: Performed By: #### A 1C #### [facility] [address] [place] [address] Dr. Marta Ashford Cheyenne/B Resist. Gene Not Applicable Normal [facility] Comment on above: Performed By: #### A 1C #### [facility] [address] [place] [address] Dr. Marta Ashford CARDIAC PAOLO 3-6on 2 CK [Catalytic activity/Vol] 112 U/L Normal 55-170 [facility] Comment on above: Performed By: #### P HVEN #### [facility] [address] [place] [address] Dr. Marta Ashford CK.MB [Mass/Vol] 1.13 ng/mL Normal <=2.37 [facility] Comment on above: Performed By: #### P HVEN #### [facility] [address] [place] [address] Dr. Marta Ashford HSTROP 283.1 pg/mL Critically high 4.0-42.2 [facility] Comment on above: Result Comment: CUT- OFF POINTS HAVE BEEN ESTABLISHED BASED ON THE FOURTH UNIVERSAL DEFINITIONS OF MYOCARDIAL INFARCTION. THE UPPER REFERENCE LIMIT (URL) OF TROPONIN, DEFINED THE 99TH PERCENTILE OF cTnI DISTRIBUTION IN A REFERENCE POPULATION, HAS BEEN CONFIRMED THE DECISION THRESHOLD FOR [place] DIAGNOSIS. TEST REPEATED CRITICAL VALUE VERIFIED Performed By: #### P HVEN #### [facility] [address] [place] [address] Dr. Marta Ashford CK [Catalytic activity/Vol] 98 U/L Normal 55-170 [facility] Comment on above: Performed By: #### A 1C #### [facility] [address] [place] [address] Dr. Marta Ashford CK.MB [Mass/Vol] 1.08 ng/mL Normal <=2.37 [facility] Comment on above: Performed By: #### A 1C #### [facility] [address] [place] [address] Dr. Marta Ashford HSTROP 310.8 pg/mL Critically high 4.0-42.2 [facility] Comment on above: Result Comment: CUT- OFF POINTS HAVE BEEN ESTABLISHED BASED ON THE FOURTH UNIVERSAL DEFINITIONS OF MYOCARDIAL INFARCTION. THE UPPER REFERENCE LIMIT (URL) OF TROPONIN, DEFINED THE 99TH PERCENTILE OF cTnI DISTRIBUTION IN A REFERENCE POPULATION, HAS BEEN CONFIRMED THE DECISION THRESHOLD FOR [place] DIAGNOSIS. test repeated Performed By: #### A 1C #### [facility] [address] [place] [address] Dr. Marta Ashford CARDIAC PAOLO ADMITon 022 CK [Catalytic activity/Vol] 100 U/L Normal 55-170 [facility] Comment on above: Performed By: #### Shira HESS #### [facility] [address] [place] [address] Dr. Marta Ashford CK.MB [Mass/Vol] 1.20 ng/mL Normal <=2.37 [facility] Comment on above: Performed By: #### C JIMENA #### [facility] [address] [place] [address] Dr. Marta Ashford HSTROP 51.6 pg/mL Critically high 4.0-42.2 [facility] Comment on above: Result Comment: CUT- OFF POINTS HAVE BEEN ESTABLISHED BASED ON THE FOURTH UNIVERSAL DEFINITIONS OF MYOCARDIAL INFARCTION. THE UPPER REFERENCE LIMIT (URL) OF TROPONIN, DEFINED THE 99TH PERCENTILE OF cTnI DISTRIBUTION IN A REFERENCE POPULATION, HAS BEEN CONFIRMED THE DECISION THRESHOLD FOR [place] DIAGNOSIS. Performed By: #### C JIMENA #### [facility] [address] [place] [address] Dr. Marta Ashford ANGELICA 77.0 ng/mL Normal <=121.0 [facility] Comment on above: Performed By: #### C JIMENA #### [facility] [address] [place] [address] Dr. Marta Ashford CBC AUTO DIFFon 08-16-2021 BASO # 0.0 103/ul Normal 0.0-0.1 [facility] Comment on above: Performed By: #### A 1C #### [facility] [address] [place] [address] Dr. Marta Ashford Basophils/100 WBC (Bld) 0.2 % Normal 0.2-2.0 [facility] Comment on above: Performed By: #### A 1C #### [facility] [address] [place] [address] Dr. Marta Ashford EO # 0.0 103/ul Normal 0.0-0.7 [facility] Comment on above: Performed By: #### A 1C #### [facility] [address] [place] [address] Dr. Marta Ashford Eosinophils/100 WBC (Bld) 0.2 % Critically low 0.9-7.0 [facility] Comment on above: Performed By: #### A 1C #### [facility] [address] [place] [address] Dr. Marta Ashford Erythrocyte distribution width (RBC) [Ratio] 12.8 % Normal 11.0-15.0 [facility] Comment on above: Performed By: #### A 1C #### [facility] [address] [place] [address] Dr. Marta Ashford Hematocrit (Bld) [Volume fraction] 38.4 % Critically low 42.0-54.0 [facility] Comment on above: Performed By: #### A 1C #### [facility] [address] [place] [address] Dr. Marta Ashford Hemoglobin (Bld) [Mass/Vol] 12.7 g/dL Critically low 14.0-18.0 [facility] Comment on above: Performed By: #### A 1C #### [facility] [address] [place] [address] Dr. Marta Ashford IG # 0.03 10e3/ul Normal 0.00-0.03 [facility] Comment on above: Performed By: #### A 1C #### [facility] [address] [place] [address] Dr. Marta Ashford IG % 0.6 % Critically high 0.0-0.5 [facility] Comment on above: Performed By: #### A 1C #### [facility] [address] [place] [address] Dr. Marta Ashford LYMPH # 0.5 103/ul Critically low 1.2-3.8 [facility] Comment on above: Performed By: #### A 1C #### [facility] [address] [place] [address] Dr. Marta Ashford Lymphocytes/100 WBC (Bld) 11.1 % Critically low 20.5-60.0 [facility] Comment on above: Result Comment: dif. not rqd. same as 08/16/21 Performed By: #### A 1C #### [facility] [address] [place] [address] Dr. Marta Ashford MANUAL DIFF REQ NO Normal [facility] Comment on above: Performed By: #### A 1C #### [facility] [address] [place] [address] Dr. Marta Ashford MCH (RBC) [Entitic mass] 31.1 pg Normal 25.9-34.0 [facility] Comment on above: Performed By: #### A 1C #### [facility] [address] [place] [address] Dr. Marta Ashford MCHC (RBC) [Mass/Vol] 33.1 g/dL Normal 29.9-35.2 [facility] Comment on above: Performed By: #### A 1C #### [facility] [address] [place] [address] Dr. Marta Ashford MCV (RBC) [Entitic vol] 93.9 fL Normal 80.0-94.0 [facility] Comment on above: Performed By: #### A 1C #### [facility] [address] [place] [address] Dr. Marta Ashford MONO # 0.0 103/ul Critically low 0.3-0.8 [facility] Comment on above: Performed By: #### A 1C #### [facility] [address] [place] [address] Dr. Marta Ashford Monocytes/100 WBC (Bld) 0.6 % Critically low 1.7-12.0 [facility] Comment on above: Performed By: #### A 1C #### [facility] [address] [place] [address] Dr. Marta Ashford NEUT # 4.2 103/ul Normal 1.4-6.5 [facility] Comment on above: Performed By: #### A 1C #### [facility] [address] [place] [address] Dr. Marta Ashford Neutrophils/100 WBC (Bld) 87.3 % Critically high 43.0-75.0 [facility] Comment on above: Performed By: #### A 1C #### [facility] [address] [place] [address] Dr. Marta Ashford Platelet mean volume (Bld) [Entitic vol] 11.1 fL Normal 9.5-13.5 [facility] Comment on above: Performed By: #### A 1C #### [facility] [address] [place] [address] Dr. Marta Ashford PLT 114 103/ul Critically low 150-450 [facility] Comment on above: Performed By: #### A 1C #### [facility] [address] [place] [address] Dr. Marta Ashford RBC 4.09 106/ul Critically low 4.70-6.10 [facility] Comment on above: Performed By: #### A 1C #### [facility] [address] [place] [address] Dr. Marat Ashford WBC 4.8 103/ul Normal 4.0-11.0 [facility] Comment on above: Performed By: #### A 1C #### [facility] [address] [place] [address] Dr. Marta Ashford CBC W MANUAL DIFFon 08-17-19 22 ATYPICAL LYMPH # Normal [facility] Comment on above: Performed By: #### A 1C #### [facility] [address] [place] [address] Dr. Marta Ashford ATYPICAL LYMPH % Normal [facility] Comment on above: Performed By: #### A 1C #### [facility] [address] [place] [address] Dr. Marta Ashford BAND # Normal 0.0-0.3 [facility] Comment on above: Performed By: #### A 1C #### [facility] [address] [place] [address] Dr. Marta Ashford BAND % Normal 0-5 [facility] Comment on above: Performed By: #### A 1C #### [facility] [address] [place] [address] Dr. Marta Ashford BASOM # 0.00 103/ul Normal 0.00-0.10 [facility] Comment on above: Performed By: #### A 1C #### [facility] [address] [place] [address] Dr. Marta Ashford BASOM % 0.0 % Critically low 0.2-2.0 [facility] Comment on above: Performed By: #### A 1C #### [facility] [address] [place] [address] Dr. Marta Ashford BLAST # Normal [facility] Comment on above: Performed By: #### A 1C #### [facility] [address] [place] [address] Dr. Marta Ashford BLAST % Normal [facility] Comment on above: Performed By: #### A 1C #### [facility] [address] [place] [address] Dr. Marta Ashford CORRECTED WBC Normal 4.0-11.0 [facility] Comment on above: Performed By: #### A 1C #### [facility] [address] [place] [address] Dr. Marta Ashford EOS # 0.03 103/ul Normal 0.00-0.70 [facility] Comment on above: Performed By: #### A 1C #### [facility] [address] [place] [address] Dr. Marta Ashford EOS% 1.0 % Normal 0.9-7.0 [facility] Comment on above: Performed By: #### A 1C #### [facility] [address] [place] [address] Dr. Marta Ashford HCT 44.0 % Normal 42.0-54.0 [facility] Comment on above: Performed By: #### A 1C #### [facility] [address] [place] [address] Dr. Marta Ashford HGB 14.5 g/dl Normal 14.0-18.0 [facility] Comment on above: Performed By: #### A 1C #### [facility] [address] [place] [address] Dr. Marta Ashford LYMPHM # 0.90 103/ul Critically low 1.20-3.80 [facility] Comment on above: Performed By: #### A 1C #### [facility] [address] [place] [address] Dr. Marta Ashford LYMPHM% 32.0 % Normal 20.5-60.0 [facility] Comment on above: Performed By: #### A 1C #### [facility] [address] [place] [address] Dr. Marta Ashford MCH 31.2 pg Normal 25.9-34.0 [facility] Comment on above: Performed By: #### A 1C #### [facility] [address] [place] [address] Dr. Marta Ashford MCHC 33.0 g/dl Normal 29.9-35.2 [facility] Comment on above: Performed By: #### A 1C #### [facility] [address] [place] [address] Dr. Marta Ashford MCV 94.6 fL Critically high 80.0-94.0 [facility] Comment on above: Performed By: #### A 1C #### [facility] [address] [place] [address] Dr. Marta Ashford METAMYELOCYTE # Normal [facility] Comment on above: Performed By: #### A 1C #### [facility] [address] [place] [address] Dr. Marta Ashford METAMYELOCYTE % Normal [facility] Comment on above: Performed By: #### A 1C #### [facility] [address] [address] [address] Marta Ashford MONOM# 0.06 103/ul Critically low 0.30-0.80 [facility] Comment on above: Performed By: #### A 1C #### [facility] [address] [address] [address] Marta Ashford MONOM% 2.0 % Normal 1.7-12.0 [facility] Comment on above: Performed By: #### A 1C #### [facility] [address] [place] [address] Dr. Marta Ashford MPV 10.8 fL Normal 9.5-13.5 [facility] Comment on above: Performed By: #### A 1C #### [facility] [address] [place] [address] Dr. Marta Ashford MYELOCYTE # Normal [facility] Comment on above: Performed By: #### A 1C #### [facility] [address] [place] [address] Dr. Marta Ashford MYELOCYTE % Normal [facility] Comment on above: Performed By: #### A 1C #### [facility] [address] [place] [address] Dr. Marta Ashford NRBC Normal [facility] Comment on above: Performed By: #### A 1C #### [facility] [address] [place] [address] Dr. Marta Ashford PLT 129 103/ul Critically low 150-450 [facility] Comment on above: Performed By: #### A 1C #### [facility] [address] [place] [address] Dr. Marta Ashford RBC 4.65 106/ul Critically low 4.70-6.10 [facility] Comment on above: Performed By: #### A 1C #### [facility] [address] [place] [address] Dr. Marta Ashford RDW 12.9 % Normal 11.0-15.0 [facility] Comment on above: Performed By: #### A 1C #### [facility] [address] [place] [address] Dr. Marta Ahsford SEG # 1.82 103/ul Normal 1.40-6.50 [facility] Comment on above: Performed By: #### A 1C #### [facility] [address] [address] [address] Marta Ashford SEG % 65.0 % Normal 43.0-75.0 [facility] Comment on above: Performed By: #### A 1C #### [facility] [address] [address] [address] Marta Ashford WBC 2.8 103/ul Critically low 4.0-11.0 [facility] Comment on above: Performed By: #### A 1C #### [facility] [address] [place], [place] [id number] Dr. Marta Ashford CT ABD/PELVIS WO CONon [...] Date: 2021-08-16 05:21 Normal [facility] CULTURE BLOODon 08-16-2021 Microscopic examination of blood, culture Culture Observations: No growth at 5 days. Normal [facility] Comment on above: Performed By: #### B LDCX2 #### [facility] [address] [address] [address] Marta Ashford Microscopic examination of blood, culture Culture Observations: No growth at 5 days. Normal [facility] Comment on above: Performed By: #### A 1C #### [facility] [address] [address] [address] Marta Ashford Covid-19 PCR ([facility])on SARS-CoV-2 (COVID-19) RNA NORMA+probe Ql (Unsp spec) Not detected Normal NOT DETECTED [facility] Comment on above: Result Comment: When diagnostic testing is negative, the possibility of a false negative should be considered in the context of a patient's recent exposures and the presence of clinical signs and symptoms consistent with SARS-CoV-2. This test is not yet approved or cleared by the [place] Food and Drug Administration (FDA). This test was developed by [employer], [place], [place]. The performance characteristics of this test were validated by The [facility]. The results are not intended to be used as the sole means for clinical diagnosis or patient management decisions. The [facility] is authorized under Clinical Laboratory Improvement [...] for this test is supported by the M[employer]s Inspector Trimmer of Health and Human Service's declaration that [...] By: #### A 1C #### [facility] [address] [place] [address] Dr. Marta Ashford DRUG SCREEN RAPID (URINE)on 08-16-2021 AMP Negative Normal NEGATIVE [facility] Comment on above: Performed By: #### P HVEN #### [facility] [address] [place] [address] Dr. Marta Ashford BAR Negative Normal NEGATIVE [facility] Comment on above: Performed By: #### P HVEN #### [facility] [address] [place] [address] Dr. Marta Ashford BUP Negative Normal NEGATIVE [facility] Comment on above: Performed By: #### P HVEN #### [facility] [address] [place] [address] Dr. Marta Ashford BZO Negative Normal NEGATIVE [facility] Comment on above: Performed By: #### P HVEN #### [facility] [address] [place] [address] Dr. Marta Ashford ROME Negative Normal NEGATIVE [facility] Comment on above: Performed By: #### P HVEN #### [facility] [address] [place] [address] Dr. Marta Ashford CUT-OFFS SEE BELOW Normal [facility] Comment on above: Result Comment: AMP [...] By: #### P HVEN #### [facility] [address] [address] [address] Marta Ashford DRUG CUT HEADER DRUG CLASS TEST SYSTEM CUT-OFF CONCENTRATIONS ARE FOLLOWS: Normal [facility] Comment on above: Performed By: #### P HVEN #### [facility] [address] [address] [address] Marta Ashford mAMP Negative Normal NEGATIVE [facility] Comment on above: Performed By: #### P HVEN #### [facility] [address] [address] [address] Marta Ashford MTD Negative Normal NEGATIVE [facility] Comment on above: Performed By: #### P HVEN #### [facility] [address] [place] [address] Dr. Marta Ashford OPI Negative Normal NEGATIVE [facility] Comment on above: Performed By: #### P HVEN #### [facility] [address] [address] [address] Marta Ashford OXY Negative Normal NEGATIVE [facility] Comment on above: Performed By: #### P HVEN #### [facility] [address] [place] [address] Dr. Marta Ashford PCP Negative Normal NEGATIVE [facility] Comment on above: Performed By: #### P HVEN #### [facility] [address] [place] [address] Dr. Marta Ashford PPX Negative Normal NEGATIVE [facility] Comment on above: Performed By: #### P HVEN #### [facility] [address] [place] [address] Dr. Marta Ashford TCA Negative Normal NEGATIVE [facility] Comment on above: Performed By: #### P HVEN #### [facility] [address] [place] [address] Dr. Marta Ashford THC Negative Normal NEGATIVE [facility] Comment on above: Performed By: #### P HVEN #### [facility] [address] [place] [address] Dr. Marta Ashford ER URINE PROFILEon 2 Bilirubin Ql (U) Negative Normal NEGATIVE [facility] Comment on above: Performed By: #### A 1C #### [facility] [address] [place] [address] Dr. Marta Ashford Clarity (U) SL CLOUDY Abnormal CLEAR [facility] Comment on above: Performed By: #### A 1C #### [facility] [address] [place] [address] Dr. Marta Ashford Color (U) YELLOW Normal YELLOW [facility] Comment on above: Performed By: #### A 1C #### [facility] [address] [place] [address] Dr. Marta Ashford ERUAHValarie A micrscopic examination will be performed if indicated. Normal [facility] Comment on above: Performed By: #### A 1C #### [facility] [address] [place] [address] Dr. Marta Ashford Glucose Ql (U) 1000 mg/dl Abnormal NEGATIVE [facility] Comment on above: Performed By: #### A 1C #### [facility] [address] [place] [address] Dr. Marta Ashford Hemoglobin Ql (U) SMALL Abnormal NEGATIVE [facility] Comment on above: Performed By: #### A 1C #### [facility] [address] [place] [address] Dr. Marta Ashford Ketones Ql (U) Negative Normal NEGATIVE [facility] Comment on above: Performed By: #### A 1C #### [facility] [address] [place] [address] Dr. Marta Ashford LEUKOCYTES SMALL Abnormal NEGATIVE [facility] Comment on above: Performed By: #### A 1C #### [facility] [address] [place] [address] Dr. Marta Ashford Nitrite Ql (U) Positive Abnormal NEGATIVE [facility] Comment on above: Performed By: #### A 1C #### [facility] [address] [place] [address] Dr. Marta Ashford pH (U) 5.5 [pH] Normal 5-9 [facility] Comment on above: Performed By: #### A 1C #### [facility] [address] [place] [address] Dr. Marta Ashford SPEC GRAVITY 1.020 Normal 1.005-<=1.02 5 [facility] Comment on above: Performed By: #### A 1C #### [facility] [address] [place] [address] Dr. Marta Ashford UA PROTEIN TRACE Normal NEGATIVE/ TRACE [facility] Comment on above: Performed By: #### A 1C #### [facility] [address] [place] [address] Dr. Marta Ashford UR MICRO IND INDICATED Normal [facility] Comment on above: Performed By: #### A 1C #### [facility] [address] [place] [address] Dr. Marta Ashford Urobilinogen Qn (U) 0.2 {Brad'U}/dL Normal 0.2 - 1. 0 [facility] Comment on above: Performed By: #### A 1C #### [facility] [address] [place] [address] Dr. Marta Ashford LACTATE/LACTIC ACIDon 2021 Lactate [Moles/Vol] 4.1 mmol/L Critically high 0.7-2.0 [facility] Comment on above: Result Comment: test repeated Performed By: #### L ACT #### [facility] [address] [place] [address] Dr. Marta Ashford Lactate [Moles/Vol] 4.1 mmol/L Critically high 0.7-2.0 [facility] Comment on above: Result Comment: test repeated Performed By: #### L ACT #### [facility] [address] [place] [address] Dr. Marta Ashford OCC BLD IMMUNOASSAYon 2021 OCCULT BLOOD Negative Normal NEGATIVE [facility] Comment on above: Performed By: #### A 1C #### [facility] [address] [place] [address] Dr. Marta Ashford PH VENOUS BLOODon 08-16-2021 PCO2 VENOUS 30.8 mmHg Critically low 40.0-52.0 [facility] Comment on above: Performed By: #### P HVEN #### [facility] [address] [address] [address] Marta Ashford pH VENOUS 7.400 Normal 7.330-7.430 [facility] Comment on above: Performed By: #### P HVEN #### [facility] [address] [address] [address] Marta Ashford POINT OF CARE GLUCOSEon Glucose [Mass/Vol] 214 mg/dL Critically high [address] [place] [address] Comment on above: Performed By: #### C BCMAN #### [facility] [address] [address] [address] Marta Ashford Glucose [Mass/Vol] 275 mg/dL Critically high [address] [place] [address] Comment on above: Performed By: #### P HVEN #### [facility] [address] [address] [address] Marta Ashford Glucose [Mass/Vol] 366 mg/dL Critically high [address] [place] [address] Comment on above: Performed By: #### A 1C #### [facility] [address] [address] [address] Marta Ashford Glucose [Mass/Vol] 168 mg/dL Critically high [address] [place] [address] Comment on above: Performed By: #### P OCGLUC #### [facility] [address] [address] [address] Marta Ashford Glucose [Mass/Vol] 214 mg/dL Critically high [address] [place] [address] Comment on above: Performed By: #### A 1C #### [facility] [address] [address] [address] Marta Ashford PROF CHEM 8 (BAS METB)on Anion gap [Moles/Vol] 17.4 mmol/L Normal [facility] Comment on above: Performed By: #### P HVEN #### [facility] [address] [address] [address] Marta Ashford Calcium [Mass/Vol] 7.3 mg/dL Critically low 8.5-10.1 [facility] Comment on above: Performed By: #### P HVEN #### [facility] [address] [address] [address] Marta [place] Chloride [Moles/Vol] 108 mmol/L Critically high 98-107 [facility] Comment on above: Performed By: #### P HVEN #### [facility] [address] [address] [address] Marta [place] CO2 [Moles/Vol] 20.7 mmol/L Critically low 22.0-30.0 [facility] Comment on above: Performed By: #### P HVEN #### [facility] [address] [address] [address] Marta [place] Creatinine [Mass/Vol] 1.32 mg/dL Critically high 0.66-1.25 [facility] Comment on above: Performed By: #### P HVEN #### [facility] [address] [address] [address] Marta [place] EGFR-AF TANZANIAN >60 Normal >=60 [facility] Comment on above: Performed By: #### P HVEN #### [facility] [address] [address] [address] Marta [place] EGFR-NON AF TANZANIAN 56 mL/min/1.73m2 Critically low >=60 [facility] Comment on above: Performed By: #### P HVEN #### [facility] [address] [address] [address] Marta [place] Glucose [Mass/Vol] 189 mg/dL Critically high 74-106 [facility] Comment on above: Performed By: #### P HVEN #### [facility] [address] [address] [address] Marta [place] Potassium [Moles/Vol] 3.1 mmol/L Critically low 3.4-5.0 [facility] Comment on above: Performed By: #### P HVEN #### [facility] [address] [address] [address] Marta [place] Sodium [Moles/Vol] 143 mmol/L Normal 137-145 [facility] Comment on above: Performed By: #### P HVEN #### [facility] [address] [address] [address] Marta [place] Urea nitrogen [Mass/Vol] 25.0 mg/dL Critically high 7.0-18.0 [facility] Comment on above: Performed By: #### P HVEN #### [facility] [address] [address] [address] Marta [place] Urea nitrogen/Creatinine [Mass ratio] 18.9 mg/mg Normal [facility] Comment on above: Performed By: #### P HVEN #### [facility] [address] [address] [address] Marta [place] Anion gap [Moles/Vol] 17.1 mmol/L Normal [facility] Comment on above: Performed By: #### C JIMENA #### [facility] [address] [address] [address] Marta [place] Calcium [Mass/Vol] 8.2 mg/dL Critically low 8.5-10.1 [facility] Comment on above: Performed By: #### C BCVALERY #### [facility] [address] [address] [address] Marta [place] Chloride [Moles/Vol] 104 mmol/L Normal 98-107 [facility] Comment on above: Performed By: #### C BCMAN #### [facility] [address] [address] [address] Marta [place] CO2 [Moles/Vol] 23.4 mmol/L Normal 22.0-30.0 [facility] Comment on above: Performed By: #### C BCVALERY #### [facility] [address] [address] [address] Marta [place] Creatinine [Mass/Vol] 1.17 mg/dL Normal 0.66-1.25 [facility] Comment on above: Performed By: #### C BCVALERY #### [facility] [address] [address] [address] Marta [place] EGFR-AF TANZANIAN >60 Normal >=60 [facility] Comment on above: Performed By: #### C FANTASMAMAN #### [facility] [address] [place] [address] Dr. Marta [place]ford EGFR-NON AF TANZANIAN >60 Normal >=60 [facility] Comment on above: Performed By: #### C FANTASMAMAN #### [facility] [address] [address] [address] Marta [place] Glucose [Mass/Vol] 215 mg/dL Critically high 74-106 [facility] Comment on above: Performed By: #### C FANTASMAMAN #### [facility] [address] [address] [address] Mrata [place] Potassium [Moles/Vol] 3.5 mmol/L Normal 3.4-5.0 [facility] Comment on above: Performed By: #### C JIMENA #### [facility] [address] [place] [address] Dr. Marta [place]ford Sodium [Moles/Vol] 141 mmol/L Normal 137-145 [facility] Comment on above: Performed By: #### C JIMENA #### [facility] [address] [place] [address] Dr. Marta [place] Urea nitrogen [Mass/Vol] 23.0 mg/dL Critically high 7.0-18.0 [facility] Comment on above: Performed By: #### C JIMENA #### [facility] [address] [place] [address] Dr. Marta Ashford Urea nitrogen/Creatinine [Mass ratio] 19.7 mg/mg Normal [facility] Comment on above: Performed By: #### C JIMENA #### [facility] [address] [place] [address] Dr. Marta Ashford URINE MICROSCOPIC ONLYon BACTERIA MODERATE Abnormal NONE SEEN [facility] Comment on above: Performed By: #### A 1C #### [facility] [address] [place] [address] Dr. Marta Ashford Bacteria identified Cx Nom (U) INDICATED Normal [facility] Comment on above: Performed By: #### A 1C #### [facility] [address] [place] [address] Dr. Marta Ashford CAST NONE SEEN Normal NONE SEEN [facility] Comment on above: Performed By: #### A 1C #### [facility] [address] [place] [address] Dr. Marta Ashford Crystals LM Nom (Urine sed) NONE SEEN Normal NONE SEEN [facility] Comment on above: Performed By: #### A 1C #### [facility] [address] [place] [address] Dr. Marta Ashford Epithelial cells LM Ql (Urine sed) NONE SEEN Normal NONE SEEN /RARE [facility] Comment on above: Performed By: #### A 1C #### [facility] [address] [place] [address] Dr. Marta Ashford MUCOUS NONE SEEN Normal NONE SEEN [facility] Comment on above: Performed By: #### A 1C #### [facility] [address] [place] [address] Dr. Marta Ashford RBC 0-2 Normal 0-2 [facility] Comment on above: Performed By: #### A 1C #### [facility] [address] [place] [address] Dr. Marta Ashford WBC 10-20 Abnormal NONE SEEN [facility] Comment on above: Performed By: #### A 1C #### [facility] [address] [place] [address] Dr. Marta Ashford XR CHEST 2 Von [...] Date: 2021-08-16 03:11 Normal [facility] Glucose Poct Glucometerson 0 01-28-2021 Commemt1 Glu2: Cleaned Meter Normal [facility] Comment on above: Result Comment: PERF ORMED BY: [facility] [place] [address] PATHOLOGIST SALVAGE CUTTER PER TEIXEIRA M.D. Performed By: #### G DANIELLE #### Point of Care testing , Glucose [Mass/Vol] 259 mg/dL Normal [facility] Comment on above: Result Comment: [facility] Glucose Reference Range is dependent on time and content of last meal. Glucose of more than 200 mg/dL in a nonstressed, ambulatory subject supports the diagnosis of Diabetes Mellitus. Performed By: #### G DANIELLE #### Point of Care testing , Franco 01-28-2021 L - -------- Specimen: [id number] Received: 01/28/21 Status: MORENO Spencer Num: [id number] Spec Type: Surgical Subm Dr: Oskar Johnson MD Tissues: A Duodenum - Biopsy (DUODENAL BX) B Esophagus Biopsy (ESOPHAGUS BX) C Colon Biopsy (COLON BX) Procedures: HE Stain/6, Gross/Micro L4/3 -------- Patient Age/Sex Location Account Attending Physician -------- Mike Badillo 60/M [id number] Oskar Johnson MD -------- SPEC NUM: [id number] RECD: 01/28/21 STATUS: MORENO RE NUM: [id number] PARVIN: 01/28/21 DR: Oskar Johnson MD ENTERED: 01/28/[address]: SPEC TYPE: Surgical DEPT: S ENTERED BY: [id number] RECV BY: [id number] ORDERED: HE Stain/6, Gross/Micro L4/3 ORDERED: HE [...] one cassette labeled A1. (MATILDA/FELICITAS) -------- Specimen: [id number] Received: 01/28/21 Status: MORENO Spencer Num: [id number] Spec Type: Surgical Subm Dr: Oskar Johnson MD Tissues: A Duodenum - Biopsy (DUODENAL BX) B Esophagus Biopsy (ESOPHAGUS BX) C Colon Biopsy (COLON BX) Procedures: HE Stain/6, Gross/Micro L4/3 -------- Patient: Mike Badillo [id number] (Continued) -------- Specimen: [id number] Received: 01/28/21 (Continued) Gross Description (Continued) Signed (signature on file) Per Teixeira MD 01/29/21 1813 -------- Specimen: [id number] Received: 01/28/21 Status: MORENO Spencer Num: [id number] Spec Type: Surgical Subm Dr: Oskar Johnson MD Tissues: A Duodenum - Biopsy (DUODENAL BX) B Esophagus Biopsy (ESOPHAGUS BX) C Colon Biopsy (COLON BX) Procedures: HE Stain/6, Gross/Micro L4/3 -------- Patient: Mike Badillo [id number] (Continued) -------- Specimen: [id number] Received: 01/28/21-1400 (Continued) Gross Description (Continued) B. [...] microscopic findings support the above pathologic diagnosis. [id number] -------- -------- Specimen: [id number] Received: 01/28/21 Status: MORENO Spencer Num: [id number] Spec Type: Surgical Subm Dr: Oskar Johnson MD Tissues: A Duodenum - Biopsy (DUODENAL BX) B Esophagus Biopsy (ESOPHAGUS BX) C Colon Biopsy (COLON BX) Procedures: HE Stain/6, Gross/Micro L4/3 -------- Patient: Mike Badillo [id number] (Continued) --- (more content not included)... Normal [facility] Ammoniaon 01-24-2021 Ammonia (P) [Moles/Vol] 30 umol/L Normal 11-35 [facility] Comment on above: Order Comment: Reaso n for Exam Fatty liver;Right sided abdominal pain Result Comment: PERF ORMED BY: [place] [address] PATHOLOGIST SALVAGE CUTTER EPR TEIXEIRA M.D. Performed By: #### P T, AMM, CBC, CMP, HEPATIC #### [place] [address] [place] COVID-19 FRMCon 01-24-2021 SARS-CoV-2 (COVID-19) RNA NORMA+probe Ql (Unsp spec) Negative Normal Negative [facility] Comment on above: Order Comment: Healt hcare Worker?: N Result Comment: Testing for SARS-CoV-2 by RT-PCR This test was developed and its performance characteristics determined by [employer]) and validated at the [facility]. This test has not been FDA cleared [...] is terminated or revoked sooner. PERFORMED BY: [place] [address] PATHOLOGIST SALVAGE CUTTER PER TEIXEIRA M.D. Performed By: #### C OVID 19 [facility] #### [address] Complete Blood Count Auto Di ffon 01-24-2021 Basophils (Bld) [#/Vol] 0.1 10*3/uL Normal 0.0-0.2 [facility] Comment on above: Order Comment: Reaso n for Exam Fatty liver;Right sided abdominal pain Result Comment: PERF ORMED BY: [place] [address] PATHOLOGIST SALVAGE CUTTER PER TEIXEIRA M.D. Performed By: #### P T, AMM, CBC, CMP, HEPATIC #### [address] Basophils/100 WBC (Bld) 0.8 % Normal . [facility] Comment on above: Order Comment: Reaso n for Exam Fatty liver;Right sided abdominal pain Performed By: #### P T, AMM, CBC, CMP, HEPATIC #### [address] [address] [place] Eosinophils (Bld) [#/Vol] 0.2 10*3/uL Normal 0.0-0.45 [facility] Comment on above: Order Comment: Reaso n for Exam Fatty liver;Right sided abdominal pain Performed By: #### P T, AMM, CBC, CMP, HEPATIC #### [address] Eosinophils/100 WBC (Bld) 1.7 % Normal . [facility] Comment on above: Order Comment: Reaso n for Exam Fatty liver;Right sided abdominal pain Performed By: #### P T, AMM, CBC, CMP, HEPATIC #### [facility] [address] [place] [address] Erythrocyte distribution width (RBC) [Ratio] 13.3 % Normal 12.0-14.8 [facility] Comment on above: Order Comment: Reaso n for Exam Fatty liver;Right sided abdominal pain Performed By: #### P T, AMM, CBC, CMP, HEPATIC #### [address] Hematocrit (Bld) [Volume fraction] 40.9 % Normal 38.8-50.0 [facility] Comment on above: Order Comment: Reaso n for Exam Fatty liver;Right sided abdominal pain Performed By: #### P T, AMM, CBC, CMP, HEPATIC #### [facility] [address] [place] [address] Hemoglobin (Bld) [Mass/Vol] 14.3 g/dL Normal 13.0-17.0 [facility] Comment on above: Order Comment: Reaso n for Exam Fatty liver;Right sided abdominal pain Performed By: #### P T, AMM, CBC, CMP, HEPATIC #### [facility] [address] [place] [address] [place] Lymphocytes (Bld) [#/Vol] 3.7 10*3/uL Normal 1.00-4.8 [facility] Comment on above: Order Comment: Reaso n for Exam Fatty liver;Right sided abdominal pain Performed By: #### P T, AMM, CBC, CMP, HEPATIC #### [address] Lymphocytes/100 WBC (Bld) 37.8 % Normal . [facility] Comment on above: Order Comment: Reaso n for Exam Fatty liver;Right sided abdominal pain Performed By: #### P T, AMM, CBC, CMP, HEPATIC #### [address] MCH (RBC) [Entitic mass] 32.6 pg Normal 27.5-35.2 [facility] Comment on above: Order Comment: Reaso n for Exam Fatty liver;Right sided abdominal pain Performed By: #### P T, AMM, CBC, CMP, HEPATIC #### [address] MCV (RBC) [Entitic vol] 93.2 fL Normal 83.5-101 [facility] Comment on above: Order Comment: Reaso n for Exam Fatty liver;Right sided abdominal pain Performed By: #### P T, AMM, CBC, CMP, HEPATIC #### [address] Mean Corpuscular HGB Conc 35.0 g/dL Normal 32.5-35.6 [facility] Comment on above: Order Comment: Reaso n for Exam Fatty liver;Right sided abdominal pain Performed By: #### P T, AMM, CBC, CMP, HEPATIC #### [address] Monocytes (Bld) [#/Vol] 0.8 10*3/uL Normal 0.0-0.8 [facility] Comment on above: Order Comment: Reaso n for Exam Fatty liver;Right sided abdominal pain Performed By: #### P T, AMM, CBC, CMP, HEPATIC #### [address] Monocytes/100 WBC (Bld) 7.9 % Normal . [facility] Comment on above: Order Comment: Reaso n for Exam Fatty liver;Right sided abdominal pain Performed By: #### P T, AMM, CBC, CMP, HEPATIC #### [address] [place] [address] [place] Neutrophils (Bld) [#/Vol] 5.0 10*3/uL Normal 1.8-7.7 [facility] Comment on above: Order Comment: Reaso n for Exam Fatty liver;Right sided abdominal pain Performed By: #### P T, AMM, CBC, CMP, HEPATIC #### [facility] [address] [place] [address] Neutrophils/100 WBC (Bld) 51.8 % Normal . [facility] Comment on above: Order Comment: Reaso n for Exam Fatty liver;Right sided abdominal pain Performed By: #### P T, AMM, CBC, CMP, HEPATIC #### [facility] [address] [place] [address] Nucleated RBC/100 WBC (Bld) [Ratio] 0.1 % Normal 0-0.5 [facility] Comment on above: Order Comment: Reaso n for Exam Fatty liver;Right sided abdominal pain Performed By: #### P T, AMM, CBC, CMP, HEPATIC #### [address] Platelet mean volume (Bld) [Entitic vol] 10.0 fL Normal 6.6-10.1 [facility] Comment on above: Order Comment: Reaso n for Exam Fatty liver;Right sided abdominal pain Performed By: #### P T, AMM, CBC, CMP, HEPATIC #### [facility] [address] [place] [address] Platelets (Bld) [#/Vol] 147 10*3/uL Low 150-450 [facility] Comment on above: Order Comment: Reaso n for Exam Fatty liver;Right sided abdominal pain Performed By: #### P T, AMM, CBC, CMP, HEPATIC #### [facility] [address] [place] [address] [place] RBC (Bld) [#/Vol] 4.39 10*6/uL Normal 3.90-5.60 [facility] Comment on above: Order Comment: Reaso n for Exam Fatty liver;Right sided abdominal pain Performed By: #### P T, AMM, CBC, CMP, HEPATIC #### [facility] [address] WBC (Bld) [#/Vol] 9.7 10*3/uL Normal 4.5-11.0 [facility] Comment on above: Order Comment: Reaso n for Exam Fatty liver;Right sided abdominal pain Performed By: #### P T, AMM, CBC, CMP, HEPATIC #### [facility] [address] Comprehensive Metabolic Pane franco 01-24-2021 Albumin [Mass/Vol] 3.7 g/dL Normal 3.2-5.5 [facility] Comment on above: Order Comment: Reaso n for Exam Fatty liver;Right sided abdominal pain Performed By: #### P T, AMM, CBC, CMP, HEPATIC #### [facility] [address] [place] [address] Albumin/Globulin [Mass ratio] 1.2 {ratio} Normal [facility] Comment on above: Order Comment: Reaso n for Exam Fatty liver;Right sided abdominal pain Performed By: #### P T, AMM, CBC, CMP, HEPATIC #### [facility] [address] [place] [address] ALP [Catalytic activity/Vol] 54 U/L Normal 32-92 [facility] Comment on above: Order Comment: Reaso n for Exam Fatty liver;Right sided abdominal pain Performed By: #### P T, AMM, CBC, CMP, HEPATIC #### [facility] [address] [place] [address] ALT [Catalytic activity/Vol] 41 U/L Normal 10-60 [facility] Comment on above: Order Comment: Reaso n for Exam Fatty liver;Right sided abdominal pain Performed By: #### P T, AMM, CBC, CMP, HEPATIC #### [facility] [address] [place] [address] AST [Catalytic activity/Vol] 30 U/L Normal 10-42 [facility] Comment on above: Order Comment: Reaso n for Exam Fatty liver;Right sided abdominal pain Performed By: #### P T, AMM, CBC, CMP, HEPATIC #### [facility] [address] Bilirubin [Mass/Vol] 0.5 mg/dL Normal 0.3-1.2 [facility] Comment on above: Order Comment: Reaso n for Exam Fatty liver;Right sided abdominal pain Performed By: #### P T, AMM, CBC, CMP, HEPATIC #### [facility] [address] Calcium [Mass/Vol] 9.4 mg/dL Normal 8.2-10.2 [facility] Comment on above: Order Comment: Reaso n for Exam Fatty liver;Right sided abdominal pain Performed By: #### P T, AMM, CBC, CMP, HEPATIC #### [facility] [address] Chloride [Moles/Vol] 102 mmol/L Normal 95-114 [facility] Comment on above: Order Comment: Reaso n for Exam Fatty liver;Right sided abdominal pain Performed By: #### P T, AMM, CBC, CMP, HEPATIC #### [facility] [address] CO2 [Moles/Vol] 25.0 mmol/L Normal 22.0-30.0 [facility] Comment on above: Order Comment: Reaso n for Exam Fatty liver;Right sided abdominal pain Performed By: #### P T, AMM, CBC, CMP, HEPATIC #### [facility] [address] Creatinine [Mass/Vol] 0.86 mg/dL Normal 0.64-1.27 [facility] Comment on above: Order Comment: Reaso n for Exam Fatty liver;Right sided abdominal pain Performed By: #### P T, AMM, CBC, CMP, HEPATIC #### [facility] [address] Estimated GFR ( Lillie > 60 Normal [facility] Comment on above: Order Comment: Reaso n for Exam Fatty liver;Right sided abdominal pain Result Comment: GFR estimated reference range: According to KDOQI guidelines, <60 ml/min/1.73m2 is sufficient to diagnose a patient with chronic kidney disease. Performed By: #### P T, AMM, CBC, CMP, HEPATIC #### [facility] [address] Estimated GFR (Non- Am > 60 [facility] Comment on above: Order Comment: Reaso n for Exam Fatty liver;Right sided abdominal pain Performed By: #### P T, AMM, CBC, CMP, HEPATIC #### [facility] [address] Globulin (S) [Mass/Vol] 3.0 g/dL [facility] Comment on above: Order Comment: Reaso n for Exam Fatty liver;Right sided abdominal pain Performed By: #### P T, AMM, CBC, CMP, HEPATIC #### [facility] [address] Glucose [Mass/Vol] 223 mg/dL High 70-100 [facility] Comment on above: Order Comment: Reaso n for Exam Fatty liver;Right sided abdominal pain Result Comment: [facility] Glucose Reference Range is dependent on time and content of last meal. Glucose of more than 200 mg/dL in a nonstressed, ambulatory subject supports the diagnosis of Diabetes Mellitus. ADA recommended reference range Performed By: #### P T, AMM, CBC, CMP, HEPATIC #### [address] Potassium [Moles/Vol] 4.5 mmol/L Normal 3.5-5.1 [facility] Comment on above: Order Comment: Reaso n for Exam Fatty liver;Right sided abdominal pain Performed By: #### P T, AMM, CBC, CMP, HEPATIC #### [facility] [address] Protein [Mass/Vol] 6.7 g/dL Normal 6.1-7.9 [facility] Comment on above: Order Comment: Reaso n for Exam Fatty liver;Right sided abdominal pain Performed By: #### P T, AMM, CBC, CMP, HEPATIC #### [facility] [address] Sodium [Moles/Vol] 139 mmol/L Normal 136-146 [facility] Comment on above: Order Comment: Reaso n for Exam Fatty liver;Right sided abdominal pain Performed By: #### P T, AMM, CBC, CMP, HEPATIC #### [facility] [address] Urea nitrogen [Mass/Vol] 14 mg/dL Normal 9-23 [facility] Comment on above: Order Comment: Reaso n for Exam Fatty liver;Right sided abdominal pain Performed By: #### P T, AMM, CBC, CMP, HEPATIC #### [facility] [address] Hepatic Panelon 01-24-2021 Bilirubin,Indirect Not performed Normal [facility] Comment on above: Order Comment: Reaso n for Exam Fatty liver;Right sided abdominal pain Result Comment: PERF ORMED BY: [place] [address] PATHOLOGIST SALVAGE CUTTER PER TEIXEIRA M.D. Performed By: #### P T, AMM, CBC, CMP, HEPATIC #### [facility] [address] Bilirubin.indirect [Mass/Vol] mg/dL Normal 0.0-0.4 [facility] Comment on above: Order Comment: Reaso n for Exam Fatty liver;Right sided abdominal pain Performed By: #### P T, AMM, CBC, CMP, HEPATIC #### [facility] [address] Prothrombin Time INRon 01-24 INR Coag (PPP) [Relative time] 1.0 {INR} Normal [facility] Comment on above: Order Comment: Reaso n [...] heart valves: 3 - 4.5 PERFORMED BY: [place] [address] PATHOLOGIST SALVAGE CUTTER PER TEIXEIRA M.D. Performed By: #### P T, AMM, CBC, CMP, HEPATIC #### [facility] [id number] [facility] PT Coag (PPP) [Time] 11.7 s Normal 9.0-12.9 [facility] Comment on above: Order Comment: Reaso n for Exam Fatty liver;Right sided abdominal pain Performed By: #### P T, AMM, CBC, CMP, HEPATIC #### [facility] [address] [place] [address] Vital Signs Date Time Vital Sign Value Performing Clinician Facility 03-08-2024 15:03-0400 Body height 162.6 cm Markos Arellano MD Work Phone: [facility] 03-08-2024 15:03-0400 Body mass index (BMI) [Ratio] 37.76 kg/m2 Markos Arellano MD Work Phone: [facility] 03-08-2024 15:03-0400 Body temperature 97.5 [degF] Markos Arellano MD Work Phone: [facility] 03-08-2024 15:03-0400 Body weight 99.79 kg Markos Arellano MD Work Phone: [facility] 03-08-2024 15:03-0400 Diastolic blood pressure 66 mm[Hg] Markos Arellano MD Work Phone: [facility] 03-08-2024 15:03-0400 Heart rate 96 /min Markos Arellano MD Work Phone: [facility] 03-08-2024 15:03-0400 Respiratory rate 20 /min Markos Arellano MD Work Phone: [facility] 03-08-2024 15:03-0400 SaO2% (BldA) [Mass fraction] 97 % Markos Arellano MD Work Phone: [facility] 03-08-2024 15:03-0400 Systolic blood pressure 124 mm[Hg] Markos Arellano MD Work Phone: [facility] 02-19-2024 09:55-0400 Body height 162.6 cm Markos Arellano MD Work Phone: [facility] 02-19-2024 09:55-0400 Body mass index (BMI) [Ratio] 38.45 kg/m2 Markos Arellano MD Work Phone: [facility] 02-19-2024 09:55-0400 Body temperature 97.5 [degF] Markos Arellano MD Work Phone: [facility] 02-19-2024 09:55-0400 Body weight 101.61 kg Markso Arellano MD Work Phone: [facility] 02-19-2024 09:55-0400 Diastolic blood pressure 86 mm[Hg] Markos Arellano MD Work Phone: [facility] 02-19-2024 09:55-0400 Heart rate 75 /min Markos Arellano MD Work Phone: [facility] 02-19-2024 09:55-0400 Respiratory rate 20 /min Markos Arellano MD Work Phone: [facility] 02-19-2024 09:55-0400 SaO2% (BldA) [Mass fraction] 93 % Markos Arellano MD Work Phone: [facility] 02-19-2024 09:55-0400 Systolic blood pressure 150 mm[Hg] Markos Arellano MD Work Phone: [facility] 06-11-2021 16:00-0500 Body height 162.56 cm Girma Tan Other [facility] Other 06-11-2021 16:00-0500 Body mass index (BMI) [Ratio] 39.75 kg/m2 Girma Tan Other [facility] Other 06-11-2021 16:00-0500 Body weight 105.05 kg Girma Tan Other [facility] Other 06-11-2021 16:00-0500 Diastolic blood pressure 89 mm[Hg] Girma Tan Other [facility] Other 06-11-2021 16:00-0500 Respiratory rate 18 /min Girma Tan Other [facility] Other 06-11-2021 16:00-0500 SaO2% (BldA) [Mass fraction] 99 % Girma Tan Other [facility] Other 06-11-2021 16:00-0500 Systolic blood pressure 158 mm[Hg] Girma Tan Other [facility] Other 03-07-2021 15:30-0400 Body height 162.56 cm Oskar Recioormack Other [facility] Other 03-07-2021 15:30-0400 Body mass index (BMI) [Ratio] 39.48 kg/m2 Oskar Recioormack Other [facility] Other 03-07-2021 15:30-0400 Body weight 104.33 kg Oskar Elizabeth Other [facility] Other Encounters Encounter Date Encounter Type Care Provider Facility Start: 03-08-2024 End: 03-08-2024 ambulatory MARKOS ARELLANO Not Available Start: 03-08-2024 End: 03-08-2024 Office outpatient visit 25 minutes Markos Arellano MD Work Phone: [facility] Comment on above: Type 2 [...] examination without abnormal findings DR MARKOS ARELLANO [facility] Start: 09-10-2021 End: 09-11-[address] MARKOS ARELLANO Facility:[facility] Start: 09-10-2021 End: 09-11-2021 Encounter for general adult medical examination without abnormal findings DR MARKOS ARELLANO Facility:[facility] Start: 08-16-2021 End: 08-18-2021 Evaluation and management of inpatient DR ANNA THACKER Facility:[facility] Start: 07-02-2021 End: 07-02-2021 ambulatory Girma Tan Other [facility] Other Start: 07-02-2021 Telephone encounter [facility] Start: 06-24-2021 End: 06-24-2021 ambulatory Girma Tan Other [facility] Other Start: 06-24-2021 Telephone encounter Girma Chang [facility] Start: 06-11-2021 End: 06-11-2021 ambulatory Girma Tan Other [facility] Other Start: 06-11-2021 Nutrition therapy [facility] Start: 03-18-2021 End: 03-18-2021 ambulatory Stacie Muro Other [facility] Other Start: 03-18-2021 Telephone encounter [facility] Start: 03-07-2021 Office outpatient visit 25 minutes Oskar OROSCO Gastro[facility] Procedures Date Procedure Procedure Detail Performing Clinician Start: 09-10-[address] MARKOS MCINTOSH Comment on above: Performed By: #### [facility] #### [facility] [address] [place] [address] Dr. Marta Ashford Start: 01-28-2021 Colonoscopy Markos gómez MD Work Phone: Plan of Treatment Date Care Activity Detail Author Start: 01-28-2031 Screening for malign ant neoplasm of colon [facility] Start: 10-01-2025 Glaucoma screening Diabetes: R etinopathy Screening [facility] Start: 12-24-2024 Urine screening for protein Diabetes: Urine Protein Screening [facility] Start: 06-26-2024 Hemoglobin A1c measurement Diabetes: Hemoglobin A1C [facility] Start: 05-27-2024 End: 05-27-2024 Patient encounter procedure 05/27/2024 9:00 AM EST Office Visit [facility] [address] [place] [phone] Markos Arellano MD [address] [place] [address] [facility] Start: 03-08-2024 End: 03-08-2025 CT Abdomen and Pelvis WO and W contrast IV CT abdomen pelvis w and wo IV contrast Imaging Routine Right upper quadrant abdominal pain Non-alcoholic fatty liver disease Expected: 03/08/2024, Expires: 03/08/2025 [facility] Work Phone: Comment on above: Expected: 03/08/2024 , Expires: 03/08/2025 Start: 02-19-2024 End: 02-19-2024 Patient encounter procedure 02/19/2024 9:45 AM EDT Office Visit [facility] [address] [place] [address] Markos Arellano MD [address] [place] [phone] Arrived [facility] Comment on above: Arrived Start: 01-10-2024 Influenza vaccination Influenza Vacc ine (#1) [facility] Start: 1981 Urine screening for protein Diabetes: Urine Protein Screening [facility] Start: 1960 Hemoglobin A1c measurement Diabetes: Hemoglobin A1C [facility] Start: 1960 Screening for malign ant neoplasm of colon [facility] Immunizations Immunization Date Immunization Notes Care Provider Candida balderas 02-18-2023 influenza virus vacc ine, unspecified formulation Markos Arellano MD Work Phone: [facility] Payers Date Payer Category Payer Private Health Insurance [id number] 1960 Unknown [id number] 2.16.84 [id number] 1960 Unknown [id number] 2.16.84 [id number] 1960 Unknown [id number] 2.16.84 [id number] 1960 Unknown [id number] 2.16.84 [id number] 1960 Unknown [id number] 2.16.84 [id number] 1960 Unknown [id number] 2.16.84 [id number] 1960 Unknown [id number] 2.16.84 [id number] 1962 Unknown [id number] 2.16.84 [id number] 1960 Unknown [id number] 2.16.84 [id number] 1959 Unknown [id number] 2.16.8 [id number] Social History Date Type Detail Facility Start: 02-19-2024 End: 03-08-2024 Sex Assigned At [facility] [employer] Other Start: 07-01-2023 Tobacco smoking status KYIS Never smoked tobacco [facility] Start: 07-01-2023 Tobacco use and exposure Smokeless tobacco non-user [facility] Start: 02-19-2024 End: 03-08-2024 History of Social function [facility] Start: 1960 Sex assigned at Not on file N [facility] Medical Equipment Procedure Code Equipment Code Equipment Origin al Text Equipment Identifier Dates 1 each by Other route if needed (1x daily) Use as instructed [id number] Start: 04-30-2023 History of Present illness Narrative [...] daily Aspirin therapy. documented in this encounter [facility] Evaluation note 06-11-2021 Note Date & [...] Jun, Metabolic syndrome X (ICD-10 - E88.81) [facility] Other Evaluation note 03-07-2021 Note Date & [...] LOSS WILL SEND REFERRAL TO DR. NICE [facility] Other Evaluation note Note Date & Type Note Facility Evaluation note No Information [facility] Other Evaluation note Note Date & Type Note Facility Evaluation note Diagnosis Annual physical exam- Primary Routine general medical examination at a health care facility Type 2 diabetes mellitus with hyperglycemia, without long-term current use of insulin ([facility]/HCC) Essential hypertension, benign (CMS/HCC) Essential hypertension, benign Right upper quadrant abdominal pain Body mass index (BMI) 37.0-37.9, adult documented in this encounter [facility] Evaluation note Note Date & Type Note Facility Evaluation note Diagnosis Type 2 diabetes mellitus with hyperglycemia, without long-term current use of insulin ([facility]/HCC)- Primary Essential hypertension, benign (CMS/HCC) Essential hypertension, benign Gastroesophageal reflux disease without esophagitis Esophageal reflux Type 2 diabetes mellitus with hyperglycemia, without long-term current use of insulin ([facility]/HCC)- Primary Essential hypertension, benign (CMS/HCC) Essential hypertension, benign Gastroesophageal reflux disease without esophagitis Esophageal reflux Lumbar strain, initial encounter Annual physical exam Routine general medical examination at a health care facility Erectile dysfunction associated with type 2 diabetes mellitus ([facility]) Type II or unspecified type diabetes mellitus without mention of complication, not stated as uncontrolled Acute right-sided low back pain without sciatica- Primary Right upper quadrant abdominal pain Type 2 diabetes mellitus with hyperglycemia, without long-term current use of insulin ([facility]) Immunodeficiency due to conditions classified elsewhere ([facility]) Annual physical exam- Primary Routine general medical examination at a health care facility Type 2 diabetes mellitus with hyperglycemia, without long-term current use of insulin ([facility]) Essential hypertension, benign (CMS/HCC) Essential hypertension, benign Right upper quadrant abdominal pain Body mass index (BMI) 37.0-37.9, adult Type 2 diabetes mellitus with hyperglycemia, without long-term current use of insulin ([facility])- Primary Essential hypertension, benign (CMS/HCC) Essential hypertension, benign Right upper quadrant abdominal pain Non-alcoholic fatty liver disease Immunodeficiency due to conditions classified elsewhere ([facility]) documented in this encounter [facility] History general Narrative - Reported Note Date & Type Note Facility History general Narrative - Reported Type Medical History Arthritis Medical History [facility] Medical History type II diabetes [facility] Other Reason for Referral Reason FORM -EVAL AND TREAT Diagnosis 1 Fatty liver (K76.0) Referral Organization [facility] Referring Provider First Name Oskar Referring Provider Last Name Elizabeth Referring Provider Specialty Gastroenter ology Referred Organization [facility] Referred Provider Girma Tan Jr. Referred Address [address] [place] [address],[address],[place], [place],[address] Referred Provider Specialty Internal Med icine Referral [...] section and content) DATE CREATED AUTHOR 12/10/2021 [facility] DATE CREATED AUTHOR AUTHOR'S ORGANIZ ATION 08/04/2022 [facility]ital DATE CREATED AUTHOR AUTHOR'S ORGANIZ ATION 03/10/2024 [facility] dical Specialists [facility] Care Teams (unrecognized sec tion and content) Financial Market Dealer Relationship Specialty Start Date End Date Markos Arellano MD [address] [place] [phone] PCP - General Family Medicine 06/08/23 Financial Market Dealer Relationship Specialty Start Date End Date Markos Arellano MD [address] [place] [phone] PCP - General Family Medicine 06/08/23 Financial Market Dealer Relationship Specialty Start Date End Date Markos Arellano MD [address] [place] [phone] PCP - General Family Medicine 06/08/23 Financial Market Dealer Relationship Specialty Start Date End Date Markos Arellano MD [address] [place] [phone] PCP - General Family Medicine 06/08/23 FOR [...] BE BASED ON THE PRIMARY CLINICAL RECORDS. [facility]. provides no warranty or guarantee of the accuracy or completeness of information in this document.
[2024-03-15 08:49] LABS: Estimated GFR (African America >60 (>=60 mL/min/1.73m^2); Estimated GFR (Non-African Ame >60 (>=60 mL/min/1.73m^2)
== END 2024-03-15 08:22 | disposition home or self-care (01) ==
LOC: LAB 08:22
PROVIDERS: PCP Family Medicine; Visit Provider Nurse Practitioner
DX: K76.0 Fatty (change of) liver, not elsewhere classified (principal); R10.11 Right upper quadrant pain
CPT/HCPCS: 36415; 82565

== ENCOUNTER 2024-10-04 11:24 | Emergency (ER) | payer OTHER, SELFPAY ==
[2024-10-04 11:31] VITALS: BP 185/105; PULSE 99; TEMP 36.8; O2SAT 97; BMI 37.8
--- NOTE | 2024-10-04 11:44 | XR_ITS ---
The [address] [address] Patient Name: DAVID GUARDADO MRN: [id number] date: 1960 Sex: M Assigned Patient Location: ED.MAIN Current Patient Location: ED.MAIN Accession/Order Number: [id number] Exam Date: 10/04/2024 12:24 Report Date: 10/04/2024 12:29 At the request of: KRISTEL HERNANDEZ MD Procedure: XR lumbar spine 2-3V LUMBAR SPINE - 2 views COMPARISON: CT 03/15/2024 CLINICAL DATA: Back strain with lower lumbar pain after lifting a garage door 4 days ago. AP and lateral views were obtained. There is osteopenia. There is subtle thoracolumbar levoscoliotic curvature. No definite acute compression deformities are visualized. There is minor retrolisthesis of L3 on L4. The disc spaces are maintained. There is mild endplate spurring and sclerosis. Lower lumbar facet hypertrophy is seen. The SI joints are intact. No paraspinal soft tissue abnormalities are noted. XR/XR lumbar spine 2-3V IMPRESSION: SUBTLE SCOLIOSIS AND DEGENERATIVE CHANGES. NO ACUTE BONY INJURY. Impression dictated by: Ellie Parker M.D. 10/04/2024 12:29 PM Dictation Location: [place] [address] Electronically authenticated by: [id number] Y Date: 10/04/2024 12:29
--- NOTE | 2024-10-04 11:45 | ED.GENADUL1 ---
HPI HPI - General Adult General Chief complaint: Back Pain/Injury Stated complaint: BWC; LOWER BACK PAIN Time Seen by Provider: 10/04/24 11:35 Source: patient Mode of arrival: walk-in Limitations: no limitations History of Present Illness HPI narrative: 64-year-old male presents for lower back pain. He strained it 4 days ago trying to lift a heavy item at work. The pain does not seem to radiate and he did not fall. The pain is worse in certain positions. Related Data Home Medications ?Medication ?Instructions ?Recorded ?Confirmed metformin 1,000 mg tablet 1,000 mg PO BID 10/04/24 10/04/24 semaglutide 0.25 mg or 0.5 mg (2 0.25 mg subcut QWEEK 10/04/24 10/04/24 mg/1.5 mL) subcutaneous pen injector (Ozempic) Previous Rx's ?Medication ?Instructions ?Recorded ibuprofen 800 mg tablet 800 mg PO Q8H PRN pain #20 tabs 10/04/24 methocarbamol 500 mg tablet 500 mg PO Q8H PRN pain #20 tabs 10/04/24 Allergies Allergy/AdvReac Type Severity Reaction Status Date / Time No Known Drug Allergies Allergy Verified 10/04/24 11:36 Opioid HPI Opioid Management Most Recent Opioid Data: Last Pain Scale 10 Today, 11:38 Last MAR Pain Assessment Today, 11:56 Review of Systems ROS Narrative A ten point review of systems is negative except as noted above. PFSH PFSH Social History Little interest or pleasure in doing things: not at all Feeling down, depressed, or hopeless: not at all Exam Narrative Exam Narrative: Nurses note and vital signs reviewed and patient is not hypoxic. General: The patient appears well and in no apparent distress. Patient is resting comfortably on cart. Skin: Warm, dry, no pallor noted. There is no rash noted. Head: Normocephalic, atraumatic Eye: Normal conjunctiva, no drainage Ears, Nose, Mouth, and Throat: oral mucosa is moist. Nares patent. Cardiovascular: Regular Rate and Rhythm Respiratory: Patient is in no distress, no accessory muscle use, lungs are clear to auscultation, no wheezing, rales or rhonchi Back: No bruise or deformity. No focal area of tenderness to palpation. No rash GI: Soft and nontender Musculoskeletal: The patient has no evidence of calf tenderness, no pitting edema, symmetrical pulses noted bilaterally Neurological: A&O, normal speech; motor strength intact in his lower extremities Psychiatric: Cooperative Constitutional Vital Signs, click to edit/add: Last Vital Signs Temp 98.3 F 10/04/24 11:31 Pulse 99 H 10/04/24 11:31 Resp 16 10/04/24 11:31 BP 185/105 H 10/04/24 11:31 Pulse Ox 97 10/04/24 11:31 O2 Del Method Room Air 10/04/24 11:31 Course Vital Signs Vital signs: Vital Signs Temperature 98.3 F 10/04/24 11:31 Pulse Rate 99 H 10/04/24 11:31 Respiratory Rate 16 10/04/24 11:31 Blood Pressure 185/105 H 10/04/24 11:31 Pulse Oximetry 97 10/04/24 11:31 Oxygen Delivery Method Room Air 10/04/24 11:31 Temperature 98.3 F 10/04/24 11:31 Pulse Rate 99 H 10/04/24 11:31 Respiratory Rate 16 10/04/24 11:31 Blood Pressure 185/105 H 10/04/24 11:31 Pulse Oximetry 97 10/04/24 11:31 Oxygen Delivery Method Room Air 10/04/24 11:31 Medical Decision Making MDM Narrative Medical decision making narrative: X-ray is negative. My clinical impression is that he has a lumbar strain. He is feeling improved after being given IM Toradol and was prescribed ibuprofen and Robaxin. Treatment diagnosis and follow-up were discussed with the patient. Differential Diagnosis Differential Diagnosis: Lumbar strain Imaging Data Lumbar x-rays: Radiologist's impression: ITS Impressions Lumbar Spine X-Ray 10/04/24 11:44 IMPRESSION: SUBTLE SCOLIOSIS AND DEGENERATIVE CHANGES. NO ACUTE BONY INJURY. Impression dictated by: Ellie Parker M.D. 10/04/2024 12:29 PM Dictation Location: [place] [id number] Electronically authenticated by: [id number] Y Date: 10/04/2024 12:29 Discharge Plan Discharge Chief Complaint: Back Pain/Injury Clinical Impression: Strain of lumbar region Patient Disposition: Home, Self-Care Time of Disposition Decision: 12:50 Condition: Good Mode of Transportation: Private Vehicle Prescriptions / Home Meds: New methocarbamol 500 mg tablet 500 mg PO Q8H PRN (Reason: pain) Qty: 20 0RF ibuprofen 800 mg tablet 800 mg PO Q8H PRN (Reason: pain) Qty: 20 0RF No Action Ozempic 0.25 mg or 0.5 mg(2 mg/1.5 mL) pen injector 0.25 mg subcut QWEEK Rx Instructions: for 4 weeks metformin 1,000 mg tablet 1,000 mg PO BID Print Language: British Instructions: Low Back Strain (ED) Referrals: Markos Neely MD [Primary Care Provider, Family Practice] - 1 week
--- OUTSIDE RECORDS SUMMARY | 2024-10-04 11:45 | XMS_ITS | Encounter Summary ---
Author Organization [facility] Address [address] [facility] [place] [address] Care Team Providers Care Bar Back Name Role Phone Markos Arellano MD Primary Care Provider Encounter Details Date Type Department Care Team (Late st Contact Info) Description 02/05/2024 Clinisync Result Encounter [facility] Department Unsolicited Markos Arellano MD [address] [place] [phone] Social History Tobacco Use Types Packs/Day Years Used Date Smoking Tobacco: Never Smokeless Tobacco: Never Sex and Gender Information Value Date Recorded Sex Assigned at Not on file Legal Sex Male 9:50 PM EDT Gender Identity Not on file Sexual Orientation Not on file documented as of this encounter Plan of Treatment Upcoming Encounters Date Type Department Care Team (Late st Contact Info) Description 11/14/2024 2:15 PM EDT [facility] [address] [place] [address] Markos Arellano MD [address] [place] [phone] documented as of this encounter Procedures Procedure Name Priority Date/Time Associated Diagnosis Comments US RIGHT UPPER QUADRANT 02/05/2024 8:10 AM EDT documented in this encounter Results * US RIGHT UPPER QUADRANT (02/05/2024 8:10 AM EDT) Anatomical Region Laterality Modality Other 02/05/2024 8:10 AM EDT Narrative 02/05/2024 8:12 [place] [address] Ultrasound Report Signed Patient: DAVID GUARDADO MR#: [id number] : 1960 Acct:[id number] Age/Sex: 63 / M ADM Date: 02/05/24 Loc: US Attending Dr: Markos Arellano M.D. Ordering Physician: Markos Arellano M.D. Date of Service: 02/05/24 Procedure(s): US right upper quadrant Accession Number(s): [id number] cc: Markos Arellano M.D. [place] [address] Patient Name: DAVID GUARDADO MRN: [id number] date: 1960 Sex: M Assigned Patient Location: US Current Patient Location: US Accession/Order Number: [id number] Exam Date: 02/05/2024 07:21 Report Date: 02/05/2024 08:10 At the request of: MARKOS ARELLANO Procedure: US right upper quadrant EXAMINATION: US right upper quadrant HISTORY: Right Upper Quadrant Abdominal Pain COMPARISON: No relevant comparison available. TECHNIQUE: Transabdominal evaluation of the right upper quadrant. FINDINGS: LIVER: Mild fatty infiltration.. Color Doppler demonstrates patent hepatic veins. PORTAL VEIN: Duplex Doppler demonstrates normal hepatopetal flow pattern with flow velocity averaging 34 cm/s. GALLBLADDER: No visible gallstones, wall thickening, or pericholecystic free fluid. Negative sonographic Coley's sign. BILIARY: Dilated common bile duct, 10 mm. No appreciable stones or mass. PANCREAS: No visible mass, abnormal atrophy, or duct dilation. KIDNEY: No hydronephrosis. No visible mass or stones. Size: 10.8 x 6.7 x 6.2 cm US/US right upper quadrant IMPRESSION: 1. Nonspecific abnormal dilation of the common bile duct. No appreciable stones, mass, or inflammatory changes. 2. Unremarkable gallbladder. 3. Consider nuclear medicine HIDA scan to document patent duct and normal gallbladder emptying. Electronically authenticated by: ASHLEY DEVINE Date: 02/05/2024 08:10 Dictated By: Ashley Devine M.D. Signed By: 02/05/24811 DD/ 9 TD/TT: Mixer Blender: Procedure Note Radiology, Radiologist, - 02/05/2024 [place] [address] Ultrasound Report Signed Patient: DAVID GUARDADO R#: [id number] : 1960cct:[id number] Age/Sex: 63 / MADM Date: 02/05/24 Loc: US Attending Dr: Markos Arellano M.D. Ordering Physician: Markos Arellano M.D. Date of Service: 02/05/24 Procedure(s): US right upper quadrant Accession Number(s): [id number] cc: Markos Arellano M.D. The [place] [address] Patient Name: DAVID GUARDADO MRN: [facility]:[id number] date: 1960 Sex: M Assigned Patient Location: US Current Patient Location: US Accession/Order Number: [id number] Exam Date: 02/05/2024 07:21 Report Date: 02/05/2024 08:10 At the request of: MARKOS ARELLANO Procedure: US right upper quadrant EXAMINATION: US right upper quadrant HISTORY: Right Upper Quadrant Abdominal Pain COMPARISON: No relevant comparison available. TECHNIQUE: Transabdominal evaluation of the right upper quadrant. FINDINGS: LIVER: Mild fatty infiltration.. Color Doppler demonstrates patent hepatic veins. PORTAL VEIN: Duplex Doppler demonstrates normal hepatopetal flow patternwith flow velocity averaging 34 cm/s. GALLBLADDER: No visible gallstones, wall thickening, or pericholecysticfree fluid. Negative sonographic Coley's sign. BILIARY: Dilated common bile duct, 10 mm. No appreciable stones or mass. PANCREAS: No visible mass, abnormal atrophy, or duct dilation. KIDNEY: No hydronephrosis. No visible mass or stones. Size: 10.8 x 6.7 x6.2 cm US/US right upper quadrant IMPRESSION: 1. Nonspecific abnormal dilation of the common bile duct. No appreciable stones, mass, or inflammatory changes. 2. Unremarkable gallbladder. 3. Consider nuclear medicine HIDA scan to document patent duct and normal gallbladder emptying. Electronically authenticated by: ASHLEY DEVINE Date: 02/05/2024 08:10 Dictated By: Ashley Devine M.D. Signed By:02/05/24811 DD/ 9 TD/TT: Mixer Blender: Markos Arellano MD [facility] Final Result documented in this encounter Visit Diagnoses Not on filedocumented in this encounter Care Teams Bar Back Relationship Specialty Start Date End Date Markos Arellano MD [address] [place] [address] PCP - General Family Medicine 06/08/23 documented as of this encounter
--- OUTSIDE RECORDS SUMMARY | 2024-10-04 11:45 | XMS_ITS | Encounter Summary ---
Author Organization [facility] Address [address] [place] [address] Care Team Providers Care Metal Fabricator Welder Name Role Phone Markos Arellano MD Primary Care Provider [phone] Encounter Details Date Type Department Care Team (Late st Contact Info) Description 02/25/2024 Clinisync Result Encounter [facility] External Department Unsolicited Markos Arellano MD [address] [place] [address] Social History Tobacco Use Types Packs/Day Years [...] 11/14/2024 2:15 PM EDT Office Visit [facility] [address] [place] [phone] Markos Arellano MD [address] [place] [address] documented as of this encounter Procedures Procedure Name Priority Date/Time Associated Diagnosis Comments NM HEPATOBILIARY SCAN W PHARMACOLOGICAL INTERVENTION 02/25/2024 1:53 PM EDT documented in this encounter Results * NM HEPATOBILIARY SCAN W PHARMACOLOGICAL INTERVENTION (02/25/2024 1:53 PM EDT) Anatomical Region Laterality Modality Radiographic Nani ging 02/25/2024 1:53 PM EDT Narrative 02/25/2024 1:55 [place] [address] Nuclear Medicine Report Signed Patient: DAVID GUARDADO MR#: [id number] : 1960 Acct:[id number] Age/Sex: 63 / M ADM Date: 02/25/24 Loc: MS Attending Dr: Markos Arellano M.D. Ordering Physician: Markos Arellano M.D. Date of Service: 02/25/24 Procedure(s): MS hepatobiliary w pharm Accession Number(s): [id number] cc: Markos Arellano M.D. [place] [address] Patient Name: DAVID GUARDADO MRN: [id number] date: 1960 Sex: M Assigned Patient Location: MS Current Patient Location: MS Accession/Order Number: [id number] Exam Date: 02/25/2024 08:00 Report Date: 02/25/2024 13:53 At the request of: MARKOS ARELLANO Procedure: NM hepatobiliary w pharm HIDA SCAN WITH GALLBLADDER EJECTION FRACTION HISTORY: Abdominal Pain. COMPARISON: Ultrasound 02/05/2024. METHOD: Following IV injection of 4.8 mCi of nlwpubmoqu-62n-Akgdwdkg, anterior imaging of the abdomen was acquired for 60 minutes. After the gallbladder was visualized the patient was given Ensure and the gallbladder ejection fraction was calculated. FINDINGS: There is satisfactory uptake of radiopharmaceutical by the liver. The gallbladder, bile duct, and bowel are seen in the expected period of time and sequence. The gallbladder ejection fraction is normal at 64%. MS/MS hepatobiliary w pharm IMPRESSION: Normal hepatic biliary scintigraphy and gallbladder ejection fraction. Electronically authenticated by: LIT CONTRERAS Date: 02/25/2024 13:53 Dictated By: Lit Contreras M.D. Signed By: 02/25/24 1352 DD/ 1355 TD/TT: Training Program Manager: Procedure Note Radiology, Radiologist, - 02/25/2024 [place] [address] Nuclear Medicine Report Signed Patient: DAVID GUARDADO JMR#: [id number] : 1960cct:[id number] Age/Sex: 63 / MADM Date: 02/25/24 Loc: MS Attending Dr: Markos Arellano M.D. Ordering Physician: Markos Arellano M.D. Date of Service: 02/25/24 Procedure(s): NM hepatobiliary w pharm Accession Number(s): [id number] cc: Markos Arellano M.D. The [place] [address] Patient Name: DAVID GUARDADO MRN: [id number] date: 1960 Sex: M Assigned Patient Location: MS Current Patient Location: MS Accession/Order Number: [id number] Exam Date: 02/25/2024 08:00 Report Date: 02/25/2024 13:53 At the request of: MARKOS ARELLANO Procedure: NM hepatobiliary w pharm HIDA SCAN WITH GALLBLADDER EJECTION FRACTION HISTORY: Abdominal Pain. COMPARISON: Ultrasound 02/05/2024. METHOD: Following IV injection of 4.8 mCi of geclppsaif-00n-Kayezmct,anterior imaging of the abdomen was acquired for 60 minutes. After the gallbladderwas visualized the patient was given Ensure and the gallbladder ejectionfraction was calculated. FINDINGS: There is satisfactory uptake of radiopharmaceutical by theliver. The gallbladder, bile duct, and bowel are seen in the expected period of timeand sequence. The gallbladder ejection fraction is normal at 64%. MS/MS hepatobiliary w pharm IMPRESSION: Normal hepatic biliary scintigraphy and gallbladder ejection fraction. Electronically authenticated by: LIT CONTRERAS Date: 3:53 Dictated By: Lit Contreras M.D. Signed By:02/25/24 9348 DD/ 7033 TD/TT: Training Program Manager: Markos Arellano MD IMG XR PROCEDURES Final Result documented in this encounter Visit Diagnoses Not on filedocumented in this encounter Care Teams Metal Fabricator Welder Relationship Specialty Start Date End Date Markos Arellano MD [address] [place] [phone] PCP - General Family Medicine 06/08/23 documented as of this encounter
--- OUTSIDE RECORDS SUMMARY | 2024-10-04 11:45 | XMS_ITS | Encounter Summary ---
Author Organization [facility] Address [address] [place] [address] Care Team Providers Care Multimedia Assistant Name Role Phone Markos Neely MD Primary Care Provider [phone] Encounter Details Date Type Department Care Team (Late Contact Info) Description 02/05/2024 Orders Only [facility] [address] [place] [address] Markos Neely MD [address] [place] [address] Social History Tobacco Use Types Packs/Day Years [...] 11/14/2024 2:15 PM EDT Office Visit [facility] [address] [place] [address] Markos Neely MD [address] [place] [address] documented as of this encounter Procedures Procedure Name Priority Date/Time Associated Diagnosis Comments US VENOUS DUPLEX RIGHT UPPER Routine 02/05/2024 8:24 AM EDT documented in this encounter Results * US VENOUS DUPLEX RIGHT UPPER (02/05/2024 8:24 AM EDT) Anatomical Region Laterality Modality Radiographic Nani ging Markos Neely MD IMG XR PROCEDURES Final Result documented in this encounter Visit Diagnoses Not on filedocumented in this encounter Care Teams Multimedia Assistant Relationship Specialty Start Date End Date Markos Neely MD [address] [place] [address] PCP - General Family Medicine 06/08/23 documented as of this encounter
--- OUTSIDE RECORDS SUMMARY | 2024-10-04 11:45 | XMS_ITS | Clinical Summary ---
Author Organization [facility] Address [address] [place] [address] Care Team Providers Care Registered Dietitian Name Role Phone Markos Neely MD Primary Care Provider [phone] Allergies No known active allergies Medications glucose blood test stripIndicatio ns:Type 2 diabetes mellitus with hyperglycemia, without long-term current use of insulin (CMS/HCC) 1 each by Other route if needed (1x daily) Use as instructed 100 each 2 023 Active sildenafil (Viagra) 100 MG tablet Take 100 mg by mouth Daily as needed for erectile dysfunction Active omeprazole (PriLOSEC) [address] capsuleIndicat ions:Gastroeso phageal reflux disease without esophagitis Take 1 capsule (40 mg) by mouth in the morning. Take before meals. Do not crush or chew.. 90 capsule 3 024 Active metFORMIN (Glucophage) 1000 MG tabletIndicati ons:Type 2 diabetes mellitus with hyperglycemia, without long-term current use of insulin (CMS/HCC) Take 1 tablet (1,000 mg) by mouth in the morning and 1 tablet (1,000 mg) in the evening. Take with meals. 180 tablet 3 024 Active glimepiride (Amaryl) 4 MG tabletIndicati ons:Type 2 diabetes mellitus with hyperglycemia, without long-term current use of insulin (CMS/HCC) Take 1 tablet (4 mg) by mouth in the morning and 1 tablet (4 mg) before bedtime. 180 tablet 3 024 Active nabumetone (Relafen) 500 MG tabletIndicati ons:Acute right-sided low back pain without sciatica Take 1 tablet (500 mg) by mouth 2 (two) times a day as needed for moderate pain 60 tablet 3 024 Active lisinopril 40 MG tabletIndicati ons:Essential hypertension, benign (CMS/HCC) Take 1 tablet (40 mg) by mouth Daily 90 tablet 3 025 2025 Active Ozempic, 2 MG/DOSE, 8 MG/3ML solution pen-injectorIn dications:Type 2 diabetes mellitus with hyperglycemia, without long-term current use of insulin (CMS/HCC) INJECT 2MG SUBCUTANEOUSLY ONCE A WEEK 3 mL 025 Active Ozempic, 2 MG/DOSE, 8 MG/3ML solution pen-injectorIn dications:Type 2 diabetes mellitus with hyperglycemia, without long-term current use of insulin (CMS/HCC) INJECT 2 MG SUBCUTANEOUSLY ONCE WEEKLY 3 mL 025 2024 Discontinued Active Problems Problem Noted Date Diagnosed Date Non-alcoholic fatty liver disease 03/08/2024 Assessment & Plan (03/08/2024 3:33 PM EDT): Fatty liver and refer to GI. Annual physical exam 02/19/2024 Assessment & Plan (02/19/2024 10:27 AM EDT): Reviewed labs. Discussed proper diet and regular aerobic exercise. Need aerobic exercise 5-6 days a week for 30 minutes at a time. Smaller portions and limit total calories. Colonoscopy every 10 years. Tetanus every 10 years. Advised not to smoke. Discussed daily Aspirin therapy. Right upper quadrant abdominal pain 01/22/2024 Assessment & Plan (03/08/2024 3:33 PM EDT): Continued pain and fatty liver. Tender lump palpable on exam possibly related to enlarged liver or ventral hernia. Check CT abdomen. Assessment & Plan (02/19/2024 10:28 AM EDT): Continued pain and check HIDA. Assessment & Plan (01/22/2024 10:30 AM EDT): Pain for weeks and check US RUQ. Essential hypertension, benign 07/01/2023 Assessment & Plan (03/08/2024 3:33 PM EDT): BP controlled and monitor PRN. Assessment & Plan (02/19/2024 10:27 AM EDT): BP elevated today but reports controlled at home and continue to monitor PRN. Assessment & Plan (12/11/2023 10:48 AM EDT): BP elevated today but reports controlled at home and continue to monitor PRN. Assessment & Plan (07/01/2023 1:24 PM EST): BP controlled and continue to monitor PRN. Erectile dysfunction associa nina with type 2 diabetes mellitus 07/01/2023 Gastroesophageal reflux disease without esophagi tis 07/01/2023 Assessment & Plan (12/11/2023 10:48 AM EDT): Symptoms controlled with omeprazole and continue. Assessment & Plan (07/01/2023 1:24 PM EST): Symptoms controlled with omeprazole and continue. Type 2 diabetes mellitus wit h hyperglycemia, without long-term current use of insulin 07/01/2023 Assessment & Plan (03/08/2024 3:33 PM EDT): Reports BS improved and take meds daily. Stick to ADA diet and limit carbs. Assessment & Plan (02/19/2024 10:27 AM EDT): Reports BS improved and take meds daily. Stick to ADA diet and limit carbs. Assessment & Plan (01/22/2024 10:31 AM EDT): A1C over 10 and take meds daily. Stick to ADA diet and limit carbs. Assessment & Plan (12/11/2023 10:49 AM EDT): BS elevated and refill medication. Due for A1C. Stick to ADA diet and limit carbs. Assessment & Plan (07/01/2023 1:23 PM EST): Reports BS improved and due for A1C. Stick to ADA diet and limit carbs. Obesity (BMI 30-39.9) 07/01/2023 Resolved Problems Problem Noted Date Diagnosed Date Resolved Date Acute right-sided low back p ain without sciatica 12/11/2023 03/08/2024 Assessment & Plan (01/22/2024 10:29 AM EDT): Continued pain and likely muscular. Start prednisone and use relafen PRN. Handout with stretches to patient and use heat PRN. Assessment & Plan (12/11/2023 10:48 AM EDT): Increased pain and likely strain. Start flexeril PRN and use heat PRN. Encounters Date Type Department Care Team Description 09/06/2024 Refill [facility] [address] [place] [phone] Markos Neely MD Type 2 diabetes mellitus with hyperglycemia, without long-term current use of insulin ([facility]) 08/17/2024 Telephone [facility] [address] [place] [address] Markos Neely MD Medication Question 08/03/2024 Telephone [facility] [address] [place] [address] Markos Neely MD Medication Question 07/19/2024 Refill [facility] [address] [place] [address] Markos Neely MD Type 2 diabetes mellitus with hyperglycemia, without long-term current use of insulin ([facility]) 07/17/2024 Refill [facility] [address] [place] [address] Markos Neely MD from Last 3 Months Family History Medical History Relation Name Comments Cancer Father Diabetes Mother Heart disease Mother Hypertension Mother Cancer Sister Relation Name Status Comments Father Mother Sister Social History Tobacco Use Types Packs/Day Years Used Date Smoking Tobacco: Never Smokeless Tobacco: Never Tobacco Cessation:Counseling Given: Not Answered Sex and Gender Information Value Date Recorded Sex Assigned at Not on file Legal Sex Male 9:50 PM EDT Gender Identity Not on file Sexual Orientation Not on file Last Filed Vital Signs Vital Sign Reading Time Taken Comments Blood Pressure 124/66 03/08/2024 3:03 PM EDT Pulse 96 03/08/2024 3:03 PM EDT Temperature 36.4 C (97.5 F) 03/08/2024 3:03 PM EDT Respiratory Rate 20 03/08/2024 3:03 PM EDT Oxygen Saturation 97% 03/08/2024 3:03 PM EDT Inhaled Oxygen Concentration - - Weight 99.8 kg (220 lb) 03/08/2024 3:03 PM EDT Height 162.6 cm (5' 4 ) 03/08/2024 3:03 PM EDT Body Mass Index 37.76 03/08/2024 3:03 PM EDT Plan of Treatment Upcoming Encounters Date Type Department Care Team (Late st Contact Info) Description 11/14/2024 2:15 PM EDT Office Visit [facility] [address] [place] [address] Markos Neely MD [address] [place] [address] Health Maintenance Due Date Last Done Comments CT Colonography 1960 FIT-DNA 1960 FIT 1960 FOBT 1960 Sigmoidoscopy 1960 Diabetes: Hemoglobin A1C 06/26/2024 12/25/2023 Diabetes: Urine Protein Screening 12/24/2024 024 Influenza Vaccine (Season Ended) 2025 02/18/2023, 04/23/2022, 05/19/2021, Additional history exists Diabetes: Retinopathy Screening 10/01/2025 Colonoscopy 01/28/2031 01/28/2021 Colorectal Cancer Screening 01/28/2031 Insurance ([id number] [id number] [facility] Care Teams Registered Dietitian Relationship Specialty Start Date End Date Markos Neely MD [address] [place] [address] PCP - General Family Medicine 06/08/23
--- OUTSIDE RECORDS SUMMARY | 2024-10-04 11:45 | XMS_ITS | Encounter Summary ---
Author Organization [facility] Address [address] [facility] [place] [address] Care Team Providers Care Blind Installer Name Role Phone Markos Arellano MD Primary Care Provider [phone] Encounter Details Date Type Department Care Team (Late st Contact Info) Description 03/16/2024 Clinisync Result Encounter [facility] External Department Unsolicited Markos Arellano MD [address] [place] [address] Social History Tobacco Use Types Packs/Day Years [...] 11/14/2024 2:15 PM EDT [facility] [address] [place] [address] Markos Arellano MD [address] [place] [address] documented as of this encounter Procedures Procedure Name Priority Date/Time Associated Diagnosis Comments CT ABDOMEN PELVIS WO/W CON 03/16/2024 12:01 PM EST documented in this encounter Results * CT ABDOMEN PELVIS WO/W CON (03/16/2024 12:01 PM EST) Anatomical Region Laterality Modality Other 03/16/2024 12:0 1 PM EST Narrative 03/16/2024 12:04 [place] [address] CT Scan Report Signed Patient: DAVID GUARDADO MR#: [id number] : 1960 Acct:[id number] Age/Sex: 64 / M ADM Date: 03/15/24 Loc: LAB Attending Dr: Markos Arellano M.D. Ordering Physician: Markos Arellano M.D. Date of Service: 03/15/24 Procedure(s): CT abdomen pelvis wo/w con Accession Number(s): [id number] cc: Markos Arellano M.D. [place] [id number] Patient Name: DAVID GUARDADO MRN: [id number] date: 1960 Sex: M Assigned Patient Location: LAB Current Patient Location: LAB Accession/Order Number: [id number] Exam Date: 03/15/2024 12:45 Report Date: 03/16/2024 12:01 At the request of: MARKOS ARELLANO Procedure: CT abdomen pelvis wo/w con EXAMINATION: CT abdomen pelvis wo/w con HISTORY: Right Upper Quadrant Pain , Non Alcoholic Fatty Liver COMPARISON: 08/16/2021 TECHNIQUE: Axial, Coronal, and Sagittal images were created without and with non-ionic intravenous contrast material. Dose reduction techniques were achieved by using automated exposure control and/or adjustment of mA and/or kV according to patient size and/or use of iterative reconstruction technique. FINDINGS: LUNG BASES: No visible pulmonary or pleural disease. LIVER: Diffuse hypoattenuation the liver consistent with hepatic steatosis BILIARY: No dilatation or calcification. PANCREAS: No lesion, fluid collection, ductal dilatation, or atrophy. SPLEEN: No enlargement or focal lesion. ADRENALS: No mass or enlargement. KIDNEYS: No mass, obstruction, or calcification. BOWEL/MESENTERY: Moderate colonic diverticulosis without evidence of acute diverticulitis. Nonobstructive bowel gas pattern. Normal appendix AORTA/VASCULAR: No aneurysm or dissection. RETROPERITONEUM: No mass or adenopathy. LYMPH NODES: No adenopathy. URINARY BLADDER: No visible focal wall thickening, lesion, or calculus. PELVIC ORGANS: Normal prostate size. Prostate calcifications. ABDOMINAL WALL: No mass or hernia. BONES: No bony lesion or fracture. OTHER: Negative. CT/CT abdomen pelvis wo/w con IMPRESSION: Hepatic steatosis No acute intraperitoneal abnormality Electronically authenticated by: JAYDEN MARTINEZ Date: 03/16/2024 12:01 Dictated By: Jayden Martinez M.D. Signed By: 03/16/24 1204 DD/ 1201 TD/TT: Commercial Airline Pilot: Procedure Note Radiology, Radiologist, MD - 03/16/2024 [place] [address] CT Scan Report Signed Patient: DAVID GUARDAOD R#: [id number] : 1960cct:[id number] Age/Sex: 64 / MADM Date: 03/15/24 Loc: LAB Attending Dr: Markos Arellano M.D. Ordering Physician: Markos Arellano M.D. Date of Service: 03/15/24 Procedure(s): CT abdomen pelvis wo/w con Accession Number(s): [id number] cc: Markos Arellano M.D. The [place] [address] Patient Name: DAVID GUARDADO MRN: [id number] date: 1960 Sex: M Assigned Patient Location: LAB Current Patient Location: LAB Accession/Order Number: [id number] Exam Date: 03/15/2024 12:45 Report Date: 03/16/2024 12:01 At the request of: MARKOS ARELLANO Procedure: CT abdomen pelvis wo/w con EXAMINATION: CT abdomen pelvis wo/w con HISTORY: Right Upper Quadrant Pain , Non Alcoholic Fatty Liver COMPARISON: 08/16/2021 TECHNIQUE: Axial, Coronal, and Sagittal images were created without andwith non-ionic intravenous contrast material. Dose reduction techniques were achieved by using automated exposure control and/or adjustment of mAand/or kV according to patient size and/or use of iterative reconstructiontechnique. FINDINGS: LUNG BASES: No visible pulmonary or pleural disease. LIVER: Diffuse hypoattenuation the liver consistent with hepatic steatosis BILIARY: No dilatation or calcification. PANCREAS: No lesion, fluid collection, ductal dilatation, or atrophy. SPLEEN: No enlargement or focal lesion. ADRENALS: No mass or enlargement. KIDNEYS: No mass, obstruction, or calcification. BOWEL/MESENTERY: Moderate colonic diverticulosis without evidence of acute diverticulitis. Nonobstructive bowel gas pattern. Normal appendix AORTA/VASCULAR: No aneurysm or dissection. RETROPERITONEUM: No mass or adenopathy. LYMPH NODES: No adenopathy. URINARY BLADDER: No visible focal wall thickening, lesion, or calculus. PELVIC ORGANS: Normal prostate size. Prostate calcifications. ABDOMINAL WALL: No mass or hernia. BONES: No bony lesion or fracture. OTHER: Negative. CT/CT abdomen pelvis wo/w con IMPRESSION: Hepatic steatosis No acute intraperitoneal abnormality Electronically authenticated by: JAYDEN MARTINEZ Date: 03/16/2024 12:01 Dictated By: Jayden Martinez M.D. Signed By:03/16/24 1204 DD/ 1201 TD/TT: Commercial Airline Pilot: Markos Arellano MD [facility] Final Result documented in this encounter Visit Diagnoses Not on filedocumented in this encounter Care Teams Blind Installer Relationship Specialty Start Date End Date Markos Arellano MD [address] [place] [address] PCP - General Family Medicine 06/08/23 documented as of this encounter
--- OUTSIDE RECORDS SUMMARY | 2024-10-04 11:45 | XMS_ITS | Clinical Summary ---
Author Organization [employer] [facility] tem Address [id number] [address] [place] [address] Care Team Providers Care Associate Pathologist Name Role Phone Arthur Bowden DO Primary Care Provider [phone] Allergies No known active allergies Medications lisinopriL (PRINIVIL,ZESTRI L) 20 mg tablet Take 20 mg by mouth daily. Active insulin glargine-lixisen atide (SOLIQUA 100/33) 100 unit-33 mcg/mL insulin pen Inject 40 Units under the skin daily. Active metFORMIN (GLUCOPHAGE) 500 mg tablet Take 1 tablet by mouth 2 (two) times a day with meals. Active Social History Tobacco Use Types Packs/Day Years Used Date Smoking Tobacco: Never Smokeless Tobacco: Never Alcohol Use Standard Drinks/Week Comments Not Currently 0 (1 standard drink = 0.6 oz pur e alcohol) Childcare Answer Date Recorded Childcare Unknown 02/28/2020 Employment Answer Date Recorded Employment Unknown 02/28/2020 Purpose - Life Answer Date Recorded Purpose and direction in life Unknown Sex and Gender Information Value Date Recorded Sex Assigned at Not on file Legal Sex Male 11:31 AM EDT Gender Identity Not on file Sexual Orientation Not on file Last Filed Vital Signs Vital Sign Reading Time Taken Comments Blood Pressure 150/89 02/28/2020 7:45 PM EDT Pulse 97 02/28/2020 7:45 PM EDT Temperature 37.3 C (99.2 F) 02/28/2020 6:31 PM EDT Respiratory Rate 23 02/28/2020 7:45 PM EDT Oxygen Saturation 97% 02/28/2020 7:45 PM EDT Inhaled Oxygen Concentration - - Weight 99.4 kg (219 lb 3.2 oz) 02/28/2020 3:53 P M EDT Height 162.6 cm (5' 4 ) 02/28/2020 3:53 PM EDT Body Mass Index 37.63 02/28/2020 3:53 PM EDT Plan of Treatment Health Maintenance Due Date Last Done Comments Depression Screening 1974 Tobacco Screening 1974 Adult BMI Screening 02/27/1980 DTaP,Tdap and Td Vaccines (1 - Tdap) 1981 Zoster (Shingles) Vaccine (1 of 2) 02/27/2012 Influenza Vaccine 01/09/2025 Medical Devices Not on file Insurance Care Teams Associate Pathologist Relationship Specialty Start Date End Date Arthur Bowden DO PCP - General Family Medicine 02/28/20
[2024-10-04] MEDS: KETOROLAC TROMETHAMINE 60 MG/2 ML VIAL IM (11:56)
--- OUTSIDE RECORDS SUMMARY | 2024-10-04 18:11 | XMS_ITS | CCD ---
Author Organization [facility]Sy[facility] Care Team Providers Care Provider Network Manager Name Role Phone Oskar Johnson Unavailable Stacie [...] Unavailable NADERER, DR MARKOS Cobb Consulting Unavailable [place], DR CASTILLO Primary Care Unavailable YOLI ., DR CASTILLO Consulting Unavailable NADERER, DR MARKOS Cobb Admitting Unavailable NADERER, DR MARKOS Cobb Attending Unavailable NADERER, DR MARKOS Cobb Consulting Unavailable STEPHANIE, MISBAH Consulting Unavailable FAMASHA, SHAIKH Isaac Consulting Unavailable KIZZY SINHA Consulting Unavailable ROVERTO GREENFIELD Consulting Unavailable Markos Arellano MD Primary Care Provider ADAN, MARKOS Attending Unavailable NADERER, MARKOS Attending Unavailable NADERER, MARKOS Attending Unavailable NADERER, MARKOS Attending Unavailable NADERER, MARKOS Attending Unavailable Zuleikar Markos GAMINO Primary Care Provider [phone] Kianna Triplett MD Attending Provider [phone] Markos Arellano Primary Care Unavailable Asaad, Imad Attending Unavailable Asaad, Imad Admitting Unavailable Asaad, Imad Attending Unavailable Asaad, Imad Admitting Unavailable Markos Arellano Primary Care Unavailable Medications Current Medications Medication Drug Class(es) Dates Sig (Normalized) Sig (Original) ascorbic acid 500 mg oral tablet (8 sources) Vitamin C Start: 01-28-2021 take 1 tablet by mouth once daily Ascorbic Acid (Vitamin C) (Vitamin C) 500 mg Tablet Active 500 MG PO Daily January 27, 2021 11:00pm Vitamin C Active cholecalciferol 0.05 mg oral tablet (3 sources) Vitamin D Start: 01-28-2021 take 1 tablet by mouth once daily Cholecalciferol (Vitamin D3) (Vitamin D3) 50 mcg (2,000 unit) Tablet Active 50 MCG PO Daily January 27, 2021 11:00pm cyclobenzaprine hydrochloride 10 mg oral tablet (4 sources) Muscle Relaxant Start: 12-11-2023 End: 01-22-2024 take 1 tablet by mouth three times daily as needed for muscle spasms cyclobenzaprine (Flexeril) 10 MG tablet Indications: Lumbar strain, initial encounter Take 1 tablet (10 mg) by mouth 3 (three) times a day as needed for muscle spasms 30 tablet 2 12/11/2023 01/22/2024 Discontinued glimepiride 4 mg oral tablet (20 sources) Sulfonylurea Start: 01-28-2021 take 1 tablet by mouth twice daily Glimepiride 4 mg tablet Active 4 MG PO Twice daily January 27, 2021 11:00pm take 1 tablet by jayda th every twelve hours Glimepiride 4 MG 1 tablet with breakfast or the first main meal of the day Orally BID Active 3 ml insulin glargine 100 unt/ml / lixisenatide 0.033 mg/ml pen injector (8 sources) Insulin Analog Start: 01-28-2021 Insulin Glargi ne-Lixisenatide (Soliqua 100/33) 100 unit-33 mcg/mL insulin pen Active 40 UNIT SUBCUT Daily January 27, 2021 11:00pm inject 15 [IU] by osuna bcutaneous injection once daily Soliqua 100/33 15 Units Subcutaneous Daily Active lisinopril 20 mg oral tablet (20 sources) Angiotensin Converting Enzyme Inhibitor Start: 01-28-2021 take 1 tablet by mouth once daily Lisinopril 20 mg tablet Active 20 MG PO Daily January 27, 2021 11:00pm take 1 tablet by mouth in the mo rning lisinopril 40 MG tablet Take 40 mg by mouth in the morning. Active metFORMIN hydrochloride 1000 mg oral tablet (20 sources) Biguanide Start: 01-28-2021 take 1 tablet by mouth twice daily Metformin 1,000 mg tablet Active 1000 MG PO Twice daily January 27, 2021 11:00pm nabumetone 500 mg oral tablet (11 sources) Nonsteroidal Anti-inflammatory Drug Start: 01-22-2024 take 1 tablet by mouth twice daily as needed for pain nabumetone (Relafen) 500 MG tablet Indications: Acute right-sided low back pain without sciatica Take 1 tablet (500 mg) by mouth 2 (two) times a day as needed for moderate pain 60 tablet 3 01/22/2024 Active omeprazole 40 mg delayed release oral capsule (16 sources) Proton Pump Inhibitor Start: 07-01-2023 take 1 capsule by mouth before mealtime omeprazole (PriLOSEC) [address] capsule Indications: Gastroesophageal reflux disease without esophagitis Take 1 capsule (40 mg) by mouth in the morning. Take before meals. Do not crush or chew.. 90 capsule 3 07/01/2023 Active Start: 01-28-2021 take 1 capsule by mo [facility] once daily Omeprazole 20 mg capsule,delayed release(DR/EC) Active 20 MG PO Daily 90 January 27, 2021 11:00pm predniSONE 50 mg oral tablet (2 sources) Start: 01-22-2024 End: 01-28-2024 take 1 tablet by mouth once daily predniSONE (Deltasone) 50 MG tablet Indications: Acute right-sided low back pain without sciatica Take 1 tablet (50 mg) by mouth Daily for 6 days 6 tablet 01/22/2024 01/28/2024 Active Semaglutide (Ozempic) 2 mg/dose (8 mg/3 mL) pen injector (3 sources) Start: 05-24-2024 inject 2 mg by subcutaneous injection every week Semaglutide (Ozempic) 2 mg/dose (8 mg/3 mL) pen injector Active 2 MG SUBCUT every week May 24, 2024 12:00am Semaglutide, 2 MG/DOSE, (Ozempic, 2 MG/DOSE,) 8 MG/3ML solution pen-injector (14 sources) Start: 01-20-2024 inject 2 mg by subcutaneous injection every week Semaglutide, 2 MG/DOSE, (Ozempic, 2 MG/DOSE,) 8 MG/3ML solution pen-injector Indications: Type 2 diabetes mellitus with hyperglycemia, without long-term current use of insulin (CMS/HCC) Inject 2 mg under the skin 1 (one) time per week 3 mL 5 01/20/2024 Active Start: 01-14-2024 Semaglutide, 2 MG/DOSE, (Ozempic, 2 MG/DOSE,) 8 MG/3ML solution pen-injector Indications: Type 2 diabetes mellitus with hyperglycemia, without long-term current use of insulin (CMS/HCC) Inject 2 Doses under the skin 1 (one) time per week 3 mL 5 01/14/2024 Active End: 01-14-2024 Semaglutide, 2 MG/DOSE, (Oze mpic, 2 MG/DOSE,) 8 MG/3ML solution pen-injector Inject 2 Doses under the skin 1 (one) time per week 01/14/2024 Discontinued (Reorder) sildenafil 100 mg oral tablet (13 sources) Phosphodiesterase 5 Inhibitor take 1 tablet [...] (5 sources) Vitamin D3 Activ e Zinc (8 sources) Start: 021 take 1 tablet by mouth once daily Zinc 50 mg Tablet Active 50 MG PO Daily January 27, 2021 11:00pm Zinc Active Problems Active Problems Problem Classification Problem Date Documented Date Episodic/Chronic Abdominal pain (20 sources) Right upper quadrant pain; Translations: [Right [...] Onset: 03-07-2021 Resolved: 03-07-2021 Chronic Esophageal disorders (18 sources) Gastroesophageal reflux disease; Translations: [Gastro-esophageal reflux disease without esophagitis] Onset: 06-11-2021 Resolved: 06-11-2021 Chronic Essential hypertension (18 sources) Essential (primary) hypertension; Translations: [Benign essential hypertension] Onset: 08-21-2021 02-19-2024 Chronic Immunity disorders (4 sources) Secondary immune deficiency disorder; Translations: [Immunodeficiency due to conditions classified elsewhere ([facility])] 03-08-2024 Chronic Osteoarthritis (4 sources) Osteoarthritis of knee; Translations: [Osteoarthritis of knee, unspecified] Onset: 06-11-2021 Resolved: 06-11-2021 Chronic Other liver diseases (8 sources) Steatosis of liver; Translations: [Fatty (change of) liver, not elsewhere classified] 05-24-2024 Chronic Other liver diseases (12 sources) Fatty (change of) liver, not elsewhere classified; Translations: [Other chronic nonalcoholic liver disease] Onset: 03-07-2021 Resolved: 06-11-2021 Chronic Other liver diseases (2 sources) Elevated liver enzymes level; Translations: [Abnormal levels of other serum enzymes] 05-24-2024 Episodic Other liver diseases (2 sources) Abnormal levels of other serum enzymes; Translations: [Other nonspecific abnormal serum enzyme levels] 05-24-2024 Episodic Other nutritional; endocrine; and metabolic disorders (7 sources) Metabolic syndrome X; Translations: [Metabolic syndrome] 05-24-2024 Chronic Other nutritional; endocrine; and metabolic disorders (1 source) Metabolic syndrome Onset: 06-11-2021 Resolved: 06-11-2021 Chronic Other nutritional; endocrine; and metabolic disorders (15 sources) Body mass index 30+ - obesity; Translations: [Body mass index (BMI) 37.0-37.9, adult] Onset: 07-01-2023 02-19-2024 Chronic Unclassified (1 source) CONTACT W/AND (SUSP) [...] Resolved: 03-07-2021 Episodic Other aftercare (1 source) 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; Translations: [HALFWAY USE ORAL HYPOGLYCEMIC DX] Onset: 08-21-2021 Episodic [...] sepsis without septic shock] Onset: 08-21-2021 Episodic Spondylosis; intervertebral disc disorders; other back problems (13 sources) Acute low back pain; Translations: [Acute right-sided low back pain without sciatica] Onset: 12-11-2023 Resolved: 03-08-2024 01-22-2024 Episodic Sprains and strains (2 sources) Low back strain; Translations: [Strain of muscle, fascia and tendon of lower back, initial encounter] Onset: 08-02-2024 08-02-2024 Episodic Unclassified (1 source) Esophagitis K20.90; Translations: [Esophagitis K20.90] Onset: 03-07-2021 Resolved: 03-07-2021 Unclassified (4 sources) Non-alcoholic fatty liver disease 03-08-2024 Urinary tract infections (3 sources) Acute pyelonephritis; Translations: [ACUTE PYELONEPHRITIS] Onset: 08-16-2021 Episodic Results Test Name Value Interpretation Reference Range Facility [facility] Antinuclear Antibodieson 05-24-2024 Antinuclear Abs, IFA Positive Critically abnormal . [facility] Comment on above: Result Comment: Nega tive <1:80 Borderline 1:80 Positive >1:80 Performed By: #### C BC, HEPATIC, BIANKA #### [facility] [address] [place] [address] [place] #### ALPHA PHEN, HAABT, CERULOP, L-K MICRO, IGG, HBCAB, SMAB, HBSAG, HBSAB, HCV RX PCR, HARRISON, HCBIGM, HEMOCHROM, MITOM2, HAAB #### [facility] , Homogeneous Pattern 1 Normal . [facility] Comment on above: Result Comment: ICAP nomenclature: [id number] Performed By: #### C BC, HEPATIC, BIANKA #### [facility] [address] [place] [address] [place] #### ALPHA PHEN, HAABT, CERULOP, L-K MICRO, IGG, HBCAB, SMAB, HBSAG, HBSAB, HCV RX PCR, HARRISON, HCBIGM, HEMOCHROM, MITOM2, HAAB #### [facility] , Note 1 Comment Normal . [facility] Comment on above: Result Comment: Stefani castro Potential Disease Association Homogeneous Systemic Lupus Erythematosus, Drug Induced Systemic Lupus Erythematosus, Chronic Autoimmune hepatitis, Juvenile Idiopathic Arthritis Speckled Sjogren Syndrome, Systemic Lupus Erythematosus, Subacute Cutaneous Lupus, Lupus, Congenital Heart Block, Mixed Connective Tissue Disease, Scleroderma-diffuse, Scleroderma-Autoimmune Myositis Overlap Syndrome, Systemic Lupus Cqhuhxbhfgpft-Gisvfkpymbs-Mupfckbqsz Myositis Overlap Syndrome, Systemic Autoimmune Rheumatic Disease, Undifferentiated Connective Tissue Disease Nucleolar Systemic Sclerosis, Scleroderma-Autoimmune Myositis Overlap Syndrome, Sjogren Syndrome, Raynaud phenomenon, Pulmonary Arterial Hypertension, Systemic Autoimmune Rheumatic Disease, Cancer Centromere Scleroderma-CREST, Limited Cutaneous SSc, Raynaud's Phenomenon, Primary Biliary Cholangitis Nuclear Dot Primary Biliary Cholangitis Nuclear Primary Biliary Cholangitis, Autoimmune Membrane Hepatitis/Liver disease, Systemic Autoimmune Rheumatic Disease, Autoimmune Cytopenias, Linear Scleroderma, Antiphospholipid Syndrome Performed at: [address] [id number] Print Machine Operator: Forest Mcclain PhD, Phone: [phone] Performed By: #### C BC, HEPATIC, BIANKA #### [facility] [address] [place] [address] [place] #### ALPHA PHEN, HAABT, CERULOP, L-K MICRO, IGG, HBCAB, SMAB, HBSAG, HBSAB, HCV RX PCR, HARRISON, HCBIGM, HEMOCHROM, MITOM2, HAAB #### [facility] , Actin smooth muscle IgG Ab [ Units/volume] in SerumOrdered By: [facility] on 05-24-[facility]24 Actin smooth muscle IgG Qn (S) Actin smooth muscle IgG Ab [Units/volume] in Serum 0-19 [facility] Comment on above: Negative 0 - 19 Weak positive 20 - 30 Moderate to strong positive >30 Actin Antibodies are found in 52-85% of patients with autoimmune hepatitis or chronic active hepatitis and in 22% of patients with primary biliary cirrhosis. Alanine aminotransferase [En zymatic activity/volume] in Serum or PlasmaOrdered By: ad [facility] on 05-24-2024 ALT [Catalytic activity/Vol] Alanine aminotransferase [Enzymatic activity/volume] in Serum or Plasma High 7-52 [facility] Albumin [Mass/volume] in Ser um or Plasma by Bromocresol green (BCG) dye binding methoOrdered By: ad [facility] on 05-24-2024 Albumin BCG dye [Mass/Vol] Albumin [Mass/volume] in Serum or Plasma by Bromocresol green (BCG) dye binding metho 3.5-5.7 [facility] Alkaline phosphatase [Enzyma tic activity/volume] in Serum or PlasmaOrdered By: [facility] on 05-24-2024 ALP [Catalytic activity/Vol] Alkaline phosphatase [Enzymatic activity/volume] in Serum or Plasma 34-104 [facility] Cdjdy-7-Ruranbmrddf Phenotyp luan 05-24-2024 Alpha 1 Anti-Trypsin 139 mg/dL Normal 101-187 [facility] Comment on above: Performed By: #### C BC, HEPATIC, BIANKA #### [facility] [address] [place] [address] [place] #### ALPHA PHEN, HAABT, CERULOP, L-K MICRO, IGG, HBCAB, SMAB, HBSAG, HBSAB, HCV RX PCR, HARRISON, HCBIGM, HEMOCHROM, MITOM2, HAAB #### [facility] , Phenotype (P1) MM Normal . [facility] Comment on above: Result Comment: MM Phenotype is considered to be normal , producing normal serum levels of tsfmu-0-obxfqhmg inhibitor and not associated with clinical disease. Associated A1A total serum levels in other phenotypes and their incidence in the general population are shown in the table below. Phenotype Population % function A-1-AT Conc.* Incidence % compared to MM (Typical Range) MM 86.5% 100% (96 - 189) MS 8.0% 86% (83 - 161) MZ 3.9% 61% (60 - 111) FM 0.4% 100% (93 - 191) SZ 0.3% 41% (42 - 75) SS 0.1% 64% (62 - 119) ZZ 0.05% 19% (16 - 38) FS 0.05% 70% (70 - 128) FZ Unknown 46% (44 - 88) FF Unknown Unknown *A-1-AT concentration in the homozygous MM phenotype is taken as the reference normal. Percent deficiency in each phenotype is reported relative to this reference. Ranges used to confirm phenotype. Performed at: [facility] [address] [id number] Print Machine Operator: Forest Mcclain PhD, Phone: [phone] Performed at: [facility] [address] [id number] Print Machine Operator: Jeannine Jacobson MD, Phone: [phone] Performed By: #### C BC, HEPATIC, BIANKA #### [facility] [address] #### ALPHA PHEN, HAABT, CERULOP, L-K MICRO, IGG, HBCAB, SMAB, HBSAG, HBSAB, HCV RX PCR, HARRISON, HCBIGM, HEMOCHROM, MITOM2, HAAB #### [facility] , Aspartate aminotransferase [ Enzymatic activity/volume] in Serum or PlasmaOrdered By: Kianna Triplett on 05-24-2024 AST [Catalytic activity/Vol] Aspartate aminotransferase [Enzymatic activity/volume] in Serum or Plasma High 13-39 [facility] Basophils Auto (Bld) [#/Vol] Ordered By: [facility] on 05-24-2024 Basophils (Bld) [#/Vol] Automated basophil count 0.0-0.2 [facility] Basophils/100 WBC Auto (Bld) Ordered By: [facility] on 05-24-2024 Basophils/100 WBC (Bld) Automated basophil % . [facility] Bilirubin.direct [Mass/volum e] in Serum or PlasmaOrdered By: [facility] on 05-24-2024 Bilirubin.direct [Mass/Vol] Bilirubin.direct [Mass/volume] in Serum or Plasma 0.03-0.18 [facility] Bilirubin.total [Mass/volume ] in Serum or PlasmaOrdered By: [facility] on 05-24-2024 Bilirubin [Mass/Vol] Bilirubin.total [Mass/volume] in Serum or Plasma 0.3-1.0 [facility] Blood or tissue HFE gene mut ations identification by molecular genetics methodOrdered By: [facility] on 05-24-2024 HFE gene targeted mutation analysis Molgen Nom (Bld/Tiss) Blood or tissue HFE gene mutations identification by molecular genetics method . [facility] Comment on above: Results:c.845G>A (p. Bup483Jcd) - Not Detectedc.187C>G (p.Hzt79Dkh) - Detected, heterozygousc.193A>T (p.Kom50Lhk) - Not DetectedNot associated with increased risk to develop clinicalsymptoms of Hereditary Hemochromatosis. In symptomaticindividuals, other causes of iron overload should beevaluated. See Additional Information and Comments.Additional Clinical Information:Hereditary hemochromatosis (HFE related) is an autosomalrecessive iron storage disorder. Patients may have agenetic diagnosis of hereditary hemochromatosis and nevershow clinical symptoms. Clinical symptoms typically appearbetween 40 to 60 years in males and after menopause infemales. Signs and symptoms may include organ damage,primarily in the liver, risk for hepatocellularcarcinoma, diabetes, and heart disease due to ironaccumulation. Life expectancy may be decreased inindividuals who develop cirrhosis. Treatment forclinically symptomatic individuals may includetherapeutic phlebotomy. Liver transplant may be used totreat end stage liver failure. For preventive care,monitoring for iron overload is recommended for patientswho are homozygous for c.845G>A (p.Sjc335Uqh) and have yetto experience clinical symptoms.Comments:The most common HFE variants associated with hereditaryhemochromatosis are c.845G>A (p.Dsp243Anf), c.187C>G(p.Ink03Yzw), c.193A>T (p.Tnk99Hwc). While patientshomozygous for c.845G>A (p.Ilk495Rkj) are the most likelyto present clinical symptoms, less than 10% developclinically significant iron overload with tissue and organdamage.Genetic counseling is recommended to discuss the potentialclinical implications of positive results, as well asrecommendations for testing family members.Genetic Coordinators are available for health careproviders to discuss results at [phone]).Test Details:Three variants analyzed:c.845G>A (p.Ywb684Eva), commonly referred to as C282Yc.187C>G (p.Nul18Ojy), commonly referred to as H63Dc.193A>T (p.Qvr41Rme), commonly referred to as L53QRjxmqon/Limitations:DNA Analysis of the HFE gene (NM_[id number]) was performedby PCR amplification followed by restriction enzymedigestion analyses. Results must be combined with clinicalinformation for the most accurate interpretation. Molecular-based testing is highly accurate, but as in any laboratorytest, diagnostic errors may occur. False positive or falsenegative results may occur for reasons that include geneticvariants, blood transfusions, bone marrow transplantation,somatic or tissue-specific mosaicism, mislabeled samples,or erroneous representation of family relationships.This test was developed and its performancecharacteristics determined by [facility]. It has not beencleared or approved by the Food and Drug Administration.References:Babar BR, Scott PC, Chaz KV, Robert LW, Jesusita ;[employer] Association for the Study of Liver Diseases.Diagnosis and management of hemochromatosis: 2011 practiceguideline by the [employer] Association for the Study ofLiver Diseases. Hepatology. 2011 Nov;54(1):328-43. doi:10.1002/hep.50218. PMID: 88227542; PMCID: BIX8346492.Nevaeh G, Paramjit P, Werner POOL, Jesus H, Jane O,Sheldon S, Antolin I, Foreign Orozco, Miguel Daniel. EMQN best practiceguidelines for the molecular genetic diagnosis ofhereditary hemochromatosis (HH). Eur J Hum Katie. 2016Apr;24(4):479-. doi: 10.1038/ejhg.2015.128. Epub 2014. PMID: 66951453; PMCID: [id number]. Ceruloplasminon 05-24-2024 Ceruloplasmin 21.3 mg/dL Normal 16.0-31.0 [facility] Comment on above: Result Comment: Perf ormed at: - [facility] [address] [id number] Print Machine Operator: Forest Mcclain PhD, Phone: [phone] PERFORMED BY: [place] [address] PATHOLOGIST LION TRAINER FRANSISCO GONCALVES M.D. Performed By: #### C BC, HEPATIC, BIANKA #### [address] #### ALPHA PHEN, HAABT, CERULOP, L-K MICRO, IGG, HBCAB, SMAB, HBSAG, HBSAB, HCV RX PCR, [facility]ARRISON, HCBIGM, HEMOCHROM, MITOM2, HAAB #### [facility] , Complete Blood Count Auto Di ffon 05-24-2024 Basophils (Bld) [#/Vol] 0.0 10*3/uL Normal 0.0-0.2 [facility] Comment on above: Result Comment: PERF ORMED BY: [place] [address] PATHOLOGIST LION TRAINER FRANSISCO GONCALVES M.D. Performed By: #### C BC, HEPATIC, BIANKA #### [place] [address] [place] #### ALPHA PHEN, HAABT, CERULOP, L-K MICRO, IGG, HBCAB, SMAB, HBSAG, HBSAB, HCV RX PCR, HARRISON, HCBIGM, HEMOCHROM, MITOM2, HAAB #### [facility] , Basophils/100 WBC (Bld) 0.5 % Normal . [facility] Comment on above: Performed By: #### C BC, HEPATIC, BIANKA #### [place] [address] [place] #### ALPHA PHEN, HAABT, CERULOP, L-K MICRO, IGG, HBCAB, SMAB, HBSAG, HBSAB, HCV RX PCR, HARRISON, HCBIGM, HEMOCHROM, MITOM2, HAAB #### [facility] , Eosinophils (Bld) [#/Vol] 0.1 10*3/uL Normal 0.0-0.45 [facility] Comment on above: Performed By: #### C BC, HEPATIC, BIANKA #### [place] [address] [place] #### ALPHA PHEN, HAABT, CERULOP, L-K MICRO, IGG, HBCAB, SMAB, HBSAG, HBSAB, HCV RX PCR, HARRISON, HCBIGM, HEMOCHROM, MITOM2, HAAB #### [facility] , Eosinophils/100 WBC (Bld) 1.7 % Normal . [facility] Comment on above: Performed By: #### C BC, HEPATIC, BIANKA #### [place] [address] [place] #### ALPHA PHEN, HAABT, CERULOP, L-K MICRO, IGG, HBCAB, SMAB, HBSAG, HBSAB, HCV RX PCR, HARRISON, HCBIGM, HEMOCHROM, MITOM2, HAAB #### [facility] , Erythrocyte distribution width (RBC) [Ratio] 13.3 % Normal 12.0-14.8 [facility] Comment on above: Performed By: #### C BC, HEPATIC, BIANKA #### [address] #### ALPHA PHEN, HAABT, CERULOP, L-K MICRO, IGG, HBCAB, SMAB, HBSAG, HBSAB, HCV RX PCR, HARRISON, HCBIGM, HEMOCHROM, MITOM2, HAAB #### [facility] , Hematocrit (Bld) [Volume fraction] 43.7 % Normal 38.8-50.0 [facility] Comment on above: Performed By: #### C BC, HEPATIC, BIANKA #### [place] [address] [place] #### ALPHA PHEN, HAABT, CERULOP, L-K MICRO, IGG, HBCAB, SMAB, HBSAG, HBSAB, HCV RX PCR, HARRISON, HCBIGM, HEMOCHROM, MITOM2, HAAB #### [facility] , Hemoglobin (Bld) [Mass/Vol] 14.8 g/dL Normal 13.0-17.0 [facility] Comment on above: Performed By: #### C BC, HEPATIC, BIANKA #### [place] [address] [place] #### ALPHA PHEN, HAABT, CERULOP, L-K MICRO, IGG, HBCAB, SMAB, HBSAG, HBSAB, HCV RX PCR, HARRISON, HCBIGM, HEMOCHROM, MITOM2, HAAB #### [facility] , Lymphocytes (Bld) [#/Vol] 2.9 10*3/uL Normal 1.00-4.8 [facility] Comment on above: Performed By: #### C BC, HEPATIC, BIANKA #### [place] [address] [place] #### ALPHA PHEN, HAABT, CERULOP, L-K MICRO, IGG, HBCAB, SMAB, HBSAG, HBSAB, HCV RX PCR, HARRISON, HCBIGM, HEMOCHROM, MITOM2, HAAB #### [facility] , Lymphocytes/100 WBC (Bld) 37.3 % Normal . [facility] Comment on above: Performed By: #### C BC, HEPATIC, BIANKA #### [place] [address] [place] #### ALPHA PHEN, HAABT, CERULOP, L-K MICRO, IGG, HBCAB, SMAB, HBSAG, HBSAB, HCV RX PCR, HARRISON, HCBIGM, HEMOCHROM, MITOM2, HAAB #### [facility] , MCH (RBC) [Entitic mass] 32.7 pg Normal 27.5-35.2 [facility] Comment on above: Performed By: #### C BC, HEPATIC, BIANKA #### [place] [address] [place] #### ALPHA PHEN, HAABT, CERULOP, L-K MICRO, IGG, HBCAB, SMAB, HBSAG, HBSAB, HCV RX PCR, HARRISON, HCBIGM, HEMOCHROM, MITOM2, HAAB #### [facility] , MCV (RBC) [Entitic vol] 96.2 fL Normal 83.5-101 [facility] Comment on above: Performed By: #### C BC, HEPATIC, BIANKA #### [place] [address] [place] #### ALPHA PHEN, HAABT, CERULOP, L-K MICRO, IGG, HBCAB, SMAB, HBSAG, HBSAB, HCV RX PCR, HARRISON, HCBIGM, HEMOCHROM, MITOM2, HAAB #### [facility] , Mean Corpuscular HGB Conc 34.0 g/dL Normal 32.5-35.6 [facility] Comment on above: Performed By: #### C BC, HEPATIC, BIANKA #### [place] [address] [place] #### ALPHA PHEN, HAABT, CERULOP, L-K MICRO, IGG, HBCAB, SMAB, HBSAG, HBSAB, HCV RX PCR, HARRISON, HCBIGM, HEMOCHROM, MITOM2, HAAB #### [facility] , Monocytes (Bld) [#/Vol] 0.6 10*3/uL Normal 0.0-0.8 [facility] Comment on above: Performed By: #### C BC, HEPATIC, BIANKA #### [place] [address] [place] #### ALPHA PHEN, HAABT, CERULOP, L-K MICRO, IGG, HBCAB, SMAB, HBSAG, HBSAB, HCV RX PCR, HARRISON, HCBIGM, HEMOCHROM, MITOM2, HAAB #### [facility] , Monocytes/100 WBC (Bld) 7.1 % Normal . [facility] Comment on above: Performed By: #### C BC, HEPATIC, BIANKA #### [place] [address] [place] #### ALPHA PHEN, HAABT, CERULOP, L-K MICRO, IGG, HBCAB, SMAB, HBSAG, HBSAB, HCV RX PCR, HARRISON, HCBIGM, HEMOCHROM, MITOM2, HAAB #### [facility] , Neutrophils (Bld) [#/Vol] 4.2 10*3/uL Normal 1.8-7.7 [facility] Comment on above: Performed By: #### C BC, HEPATIC, BIANKA #### [place] [address] [place] #### ALPHA PHEN, HAABT, CERULOP, L-K MICRO, IGG, HBCAB, SMAB, HBSAG, HBSAB, HCV RX PCR, HARRISON, HCBIGM, HEMOCHROM, MITOM2, HAAB #### [facility] , Neutrophils/100 WBC (Bld) 53.4 % Normal . [facility] Comment on above: Performed By: #### C BC, HEPATIC, BIANKA #### [place] [address] [place] #### ALPHA PHEN, HAABT, CERULOP, L-K MICRO, IGG, HBCAB, SMAB, HBSAG, HBSAB, HCV RX PCR, HARRISON, HCBIGM, HEMOCHROM, MITOM2, HAAB #### [facility] , NRBC% 0.1 /100{WBC} Normal 0-0.5 [facility] Comment on above: Performed By: #### C BC, HEPATIC, BIANKA #### [address] #### ALPHA PHEN, HAABT, CERULOP, L-K MICRO, IGG, HBCAB, SMAB, HBSAG, HBSAB, HCV RX PCR, HARRISON, HCBIGM, HEMOCHROM, MITOM2, HAAB #### [facility] , Platelet mean volume (Bld) [Entitic vol] 9.9 fL Normal 6.6-10.1 [facility] Comment on above: Performed By: #### C BC, HEPATIC, BIANKA #### [place] [address] [place] #### ALPHA PHEN, HAABT, CERULOP, L-K MICRO, IGG, HBCAB, SMAB, HBSAG, HBSAB, HCV RX PCR, HARRISON, HCBIGM, HEMOCHROM, MITOM2, HAAB #### [facility] , Platelets (Bld) [#/Vol] 159 10*3/uL Normal 150-450 [facility] Comment on above: Performed By: #### C BC, HEPATIC, BIANKA #### [place] [address] [place] #### ALPHA PHEN, HAABT, CERULOP, L-K MICRO, IGG, HBCAB, SMAB, HBSAG, HBSAB, HCV RX PCR, HARRISON, HCBIGM, HEMOCHROM, MITOM2, HAAB #### [facility] , RBC (Bld) [#/Vol] 4.54 10*6/uL Normal 3.90-5.60 [facility] Comment on above: Performed By: #### C BC, HEPATIC, BIANKA #### [place] [address] [place] #### ALPHA PHEN, HAABT, CERULOP, L-K MICRO, IGG, HBCAB, SMAB, HBSAG, HBSAB, HCV RX PCR, HARRISON, HCBIGM, HEMOCHROM, MITOM2, HAAB #### [facility] , WBC (Bld) [#/Vol] 7.8 10*3/uL Normal 4.1-10.5 [facility] Comment on above: Performed By: #### C BC, HEPATIC, BIANKA #### [facility] [address] [place] [address] [place] #### ALPHA PHEN, HAABT, CERULOP, L-K MICRO, IGG, HBCAB, SMAB, HBSAG, HBSAB, HCV RX PCR, HARRISON, HCBIGM, HEMOCHROM, MITOM2, HAAB #### [facility] , Eosinophils Auto (Bld) [#/Vo l]Ordered By: Imad Asaad on 05-24-2024 Eosinophils (Bld) [#/Vol] Automated eosinophil count 0.0-0.45 [facility] Eosinophils/100 WBC Auto (Bl d)Ordered By: Imad Asaad on 05-24-2024 Eosinophils/100 WBC (Bld) Automated eosinophil % . [facility] Erythrocyte distribution wid th Auto (RBC) [Ratio]Ordered By: Imad Asaad on 05-24-2024 Erythrocyte distribution width (RBC) [Ratio] Erythrocyte distribution width [Ratio] by Automated count 12.0-14.8 [facility] Ferritinon 05-24-2024 Ferritin [Mass/Vol] 241.6 ng/mL Normal 23.9-336.2 [facility] Comment on above: Result Comment: PERF ORMED BY: [place] [address] PATHOLOGIST LION TRAINER FRANSISCO GONCALVES M.D. Performed By: #### C BC, HEPATIC, BIANKA #### [facility] [address] [place] [address] [place] #### ALPHA PHEN, HAABT, CERULOP, L-K MICRO, IGG, HBCAB, SMAB, HBSAG, HBSAB, HCV RX PCR, HARRISON, HCBIGM, HEMOCHROM, MITOM2, HAAB #### [facility] , Ferritin [Mass/volume] in Se rum or PlasmaOrdered By: Imad Asaad on 05-24-2024 Ferritin [Mass/Vol] Ferritin [Mass/volum e] in Serum or Plasma 23.9-336.2 [facility] Globulin Calc (S) [Mass/Vol] Ordered By: Imad Asaad on 05-24-2024 Globulin (S) [Mass/Vol] Serum globulin measurement by calculation (mass/volume) [facility] Hematocrit Auto (Bld) [Volum e fraction]Ordered By: Imad Asaad on 05-24-2024 Hematocrit (Bld) [Volume fraction] Hematocrit [Volume Fraction] of Blood by Automated count 38.8-50.0 [facility] Hemoglobin [Mass/volume] in BloodOrdered By: Imad Asaad on 05-24-2024 Hemoglobin (Bld) [Mass/Vol] Hemoglobin [Mass/volume] in Blood 13.0-17.0 [facility] Hep C Ab wRfx to Qnt PCRon 0 05-24-2024 Hepatitis C Virus Antibody Non-Reactive Normal Non Reactive [facility] Comment on above: Performed By: #### C BC, HEPATIC, BIANKA #### [facility] [address] [place] [address] [place] #### ALPHA PHEN, HAABT, CERULOP, L-K MICRO, IGG, HBCAB, SMAB, HBSAG, HBSAB, HCV RX PCR, HARRISON, HCBIGM, HEMOCHROM, MITOM2, HAAB #### [facility] , Interpretation Hepatitis C Comment Normal . [facility] Comment on above: Result Comment: Not infected with HCV unless early or acute infection is suspected (which may be delayed in an immunocompromised individual), or other evidence exists to indicate HCV infection. Performed By: #### C BC, HEPATIC, BIANKA #### [facility] [address] [place] [address] [place] #### ALPHA PHEN, HAABT, CERULOP, L-K MICRO, IGG, HBCAB, SMAB, HBSAG, HBSAB, HCV RX PCR, HARRISON, HCBIGM, HEMOCHROM, MITOM2, HAAB #### [facility] , Hepatic Panelon 05-24-2024 Albumin [Mass/Vol] 4.2 g/dL Normal 3.5-5.7 [facility] Comment on above: Performed By: #### C BC, HEPATIC, BIANKA #### [place] [address] [place] #### ALPHA PHEN, HAABT, CERULOP, L-K MICRO, IGG, HBCAB, SMAB, HBSAG, HBSAB, HCV RX PCR, HARRISON, HCBIGM, HEMOCHROM, MITOM2, HAAB #### [facility] , Albumin/Globulin [Mass ratio] 1.4 {ratio} Normal [facility] Comment on above: Performed By: #### C BC, HEPATIC, BIANKA #### [place] [address] [place] #### ALPHA PHEN, HAABT, CERULOP, L-K MICRO, IGG, HBCAB, SMAB, HBSAG, HBSAB, HCV RX PCR, HARRISON, HCBIGM, HEMOCHROM, MITOM2, HAAB #### [facility] , ALP [Catalytic activity/Vol] 45 U/L Normal 34-104 [facility] Comment on above: Performed By: #### C BC, HEPATIC, BIANKA #### [place] [address] [place] #### ALPHA PHEN, HAABT, CERULOP, L-K MICRO, IGG, HBCAB, SMAB, HBSAG, HBSAB, HCV RX PCR, HARRISON, HCBIGM, HEMOCHROM, MITOM2, HAAB #### [facility] , ALT [Catalytic activity/Vol] 53 U/L High 7-52 [facility] Comment on above: Performed By: #### C BC, HEPATIC, BIANKA #### [place] [address] [place] #### ALPHA PHEN, HAABT, CERULOP, L-K MICRO, IGG, HBCAB, SMAB, HBSAG, HBSAB, HCV RX PCR, HARRISON, HCBIGM, HEMOCHROM, MITOM2, HAAB #### [facility] , AST [Catalytic activity/Vol] 42 U/L High 13-39 [facility] Comment on above: Performed By: #### C BC, HEPATIC, BIANKA #### [facility] [address] [place] [address] [place] #### ALPHA PHEN, HAABT, CERULOP, L-K MICRO, IGG, HBCAB, SMAB, HBSAG, HBSAB, HCV RX PCR, HARRISON, HCBIGM, HEMOCHROM, MITOM2, HAAB #### [facility] , Bilirubin [Mass/Vol] 0.5 mg/dL Normal 0.3-1.0 [facility] Comment on above: Performed By: #### C BC, HEPATIC, BIANKA #### [facility] [address] [place] [address] [place] #### ALPHA PHEN, HAABT, CERULOP, L-K MICRO, IGG, HBCAB, SMAB, HBSAG, HBSAB, HCV RX PCR, HARRISON, HCBIGM, HEMOCHROM, MITOM2, HAAB #### [facility] , Bilirubin,Indirect 0.4 mg/dL Normal [facility] Comment on above: Performed By: #### C BC, HEPATIC, BIANKA #### [facility] [address] [place] [address] [place] #### ALPHA PHEN, HAABT, CERULOP, L-K MICRO, IGG, HBCAB, SMAB, HBSAG, HBSAB, HCV RX PCR, HARRISON, HCBIGM, HEMOCHROM, MITOM2, HAAB #### [facility] , Bilirubin.indirect [Mass/Vol] 0.10 mg/dL Normal 0.03-0.18 [facility] Comment on above: Performed By: #### C BC, HEPATIC, BIANKA #### [facility] [address] [place] [address] [place] #### ALPHA PHEN, HAABT, CERULOP, L-K MICRO, IGG, HBCAB, SMAB, HBSAG, HBSAB, HCV RX PCR, HARRISON, HCBIGM, HEMOCHROM, MITOM2, HAAB #### [facility] , Globulin (S) [Mass/Vol] 3.0 g/dL Normal [facility] Comment on above: Performed By: #### C BC, HEPATIC, BIANKA #### [facility] [address] [place] [address] [place] #### ALPHA PHEN, HAABT, CERULOP, L-K MICRO, IGG, HBCAB, SMAB, HBSAG, HBSAB, HCV RX PCR, HARRISON, HCBIGM, HEMOCHROM, MITOM2, HAAB #### [facility] , Protein [Mass/Vol] 7.2 g/dL Normal 6.4-8.9 [facility] Comment on above: Performed By: #### C BC, HEPATIC, BIANKA #### [place] [address] [place] #### ALPHA PHEN, HAABT, CERULOP, L-K MICRO, IGG, HBCAB, SMAB, HBSAG, HBSAB, HCV RX PCR, HARRISON, HCBIGM, HEMOCHROM, MITOM2, HAAB #### [facility] , Hepatitis A Antibody IgMon 0 05-24-2024 Hepatitis A Antibody IgM Negative Normal Negative [facility] Comment on above: Result Comment: A ne gative anti-HAV IgM result suggests no recent or current HAV infection. Performed By: #### C BC, HEPATIC, BIANKA #### [place] [address] [place] #### ALPHA PHEN, HAABT, CERULOP, L-K MICRO, IGG, HBCAB, SMAB, HBSAG, HBSAB, HCV RX PCR, HARRISON, HCBIGM, HEMOCHROM, MITOM2, HAAB #### [facility] , Hepatitis A Antibody Totalon 05-24-2024 Hepatitis A Antibody Total Positive Critically abnormal Negative [facility] Comment on above: Result Comment: Comm ent: The HAV total antibody assay detects both IgG and IgM but does not differentiate between them. A negative result suggests susceptibility to infection. A positive result could be due to vaccination, previously resolved infection or active infection. Testing for HAV IgM should be performed if active HAV infection is suspected. [facility] offers profiles that will automatically reflex positive HAV total antibody results to IgM (e.g., panel #[id number] HAV Antibody w/ Rfx). Performed By: #### C BC, HEPATIC, BIANKA #### [facility] [address] [place] [address] [place] #### ALPHA PHEN, HAABT, CERULOP, L-K MICRO, IGG, HBCAB, SMAB, HBSAG, HBSAB, HCV RX PCR, HARRISON, HCBIGM, HEMOCHROM, MITOM2, HAAB #### [facility] , Hepatitis A virus Ab [Presen ce] in Serum by ImmunoassayOrdered By: Kianna Triplett on 05-24-2024 HAV Ab IA Ql (S) Hepatitis A virus Ab [Presence] in Serum by Immunoassay Abnormal Negative [facility] Comment on above: Comment: The HAV tot al antibody assay detects both IgG andIgM but does not differentiate between them. A negativeresult suggests susceptibility to infection. A positiveresult could be due to vaccination, previously resolvedinfection or active infection. Testing for HAV IgM shouldbe performed if active HAV infection is suspected. [facility] that will automatically reflex positive HAVtotal antibody results to IgM (e.g., panel #[id number] HAVAntibody w/ Rfx). Hepatitis A virus IgM antibo dy assayOrdered By: Kianna Triplett on 05-24-2024 Hepatitis A IgM Antibody Negative Negative [facility] Comment on above: A negative anti-HAV IgM result suggests no recent orcurrent HAV infection. Hepatitis B Core Antibodyon 05-24-2024 Hepatitis B Core Antibody Negative Normal Negative [facility] Comment on above: Performed By: #### C BC, HEPATIC, BIANKA #### [facility] [address] [place] [address] [place] #### ALPHA PHEN, HAABT, CERULOP, L-K MICRO, IGG, HBCAB, SMAB, HBSAG, HBSAB, HCV RX PCR, HARRISON, HCBIGM, HEMOCHROM, MITOM2, HAAB #### [facility] , Hepatitis B Core Antibody Ig Mon 05-24-2024 Hepatitis B Core Antibody IgM Negative Normal Negative [facility] Comment on above: Result Comment: Perf ormed at: - [facility] [address] [id number] Print Machine Operator: Forest Mcclain PhD, Phone: [phone] Performed By: #### C BC, HEPATIC, BIANKA #### [place] [address] [place] #### ALPHA PHEN, HAABT, CERULOP, L-K MICRO, IGG, HBCAB, SMAB, HBSAG, HBSAB, HCV RX PCR, HARRISON, HCBIGM, HEMOCHROM, MITOM2, HAAB #### [facility] , Hepatitis B Surface Antibody on 05-24-2024 Hepatitis B Surface Antibody Non-Reactive Normal . [facility] Comment on above: Result Comment: Non Reactive: Not immune to HBV infection. Equivocal: Unable to determine if anti-HBs is present at levels consistent with immunity. Reactive: Anti-HBs concentration detected at greater than 10 mIU/mL. Individual is considered to be immune to infection with HBV. Performed By: #### C BC, HEPATIC, BIANKA #### [place] [address] [place] #### ALPHA PHEN, HAABT, CERULOP, L-K MICRO, IGG, HBCAB, SMAB, HBSAG, HBSAB, HCV RX PCR, HARRISON, HCBIGM, HEMOCHROM, MITOM2, HAAB #### [facility] , Hepatitis B Surface Antigeno n 05-24-2024 HBsAg Screen Negative Normal Negative [facility] Comment on above: Result Comment: PERF ORMED BY: [place] [address] PATHOLOGIST LION TRAINER FRANSISCO GONCALVES M.D. Performed By: #### C BC, HEPATIC, BIANKA #### [place] [address] [place] #### ALPHA PHEN, HAABT, CERULOP, L-K MICRO, IGG, HBCAB, SMAB, HBSAG, HBSAB, HCV RX PCR, HARRISON, HCBIGM, HEMOCHROM, MITOM2, HAAB #### [facility] , Hepatitis B virus core IgM a ntibody assayOrdered By: Kianna Triplett on 05-24-2024 Hepatitis B Core IgM Antibody Negative Negative [facility] Comment on above: Performed at: CB - [address] [place], [place] [id number] Director: Forest Mcclain PhD, Phone: [phone] Hepatitis B virus core antib oskar assayOrdered By: Kianna Triplett on 05-24-2024 Hepatitis B Core Total Antibody Negative Negative [facility] Hepatitis C virus IgG Ab [Pr esence] in Serum or Plasma by ImmunoassayOrdered By: Kianna Triplett on 05-24-2024 HCV IgG IA Ql Hepatitis C virus Ig G Ab [Presence] in Serum or Plasma by Immunoassay Non Reactive [facility] Hereditary Hemochromatosis,D NAon 05-24-2024 Hereditary Hemochromatosis Comment Normal . [facility] Comment on above: Result Comment: Resu lts: c.845G>A (p.Byf531Fuc) - Not Detected c.187C>G (p.Nwr70Jne) - Detected, heterozygous c.193A>T (p.Ina60Tmc) - Not Detected Not associated with increased risk to develop clinical symptoms of Hereditary Hemochromatosis. In symptomatic individuals, other causes of iron overload should be evaluated. See Additional Information and Comments. Additional Clinical Information: Hereditary hemochromatosis (HFE related) is an autosomal recessive iron storage disorder. Patients may have a genetic diagnosis of hereditary hemochromatosis and never show clinical symptoms. Clinical symptoms typically appear between 40 to 60 years in males and after menopause in females. Signs and symptoms may include organ damage, primarily in the liver, risk for hepatocellular carcinoma, diabetes, and heart disease due to iron accumulation. Life expectancy may be decreased in individuals who develop cirrhosis. Treatment for clinically symptomatic individuals may include therapeutic phlebotomy. Liver transplant may be used to treat end stage liver failure. For preventive care, monitoring for iron overload is recommended for patients who are homozygous for c.845G>A (p.Gin385Fsh) and have yet to experience clinical symptoms. Comments: The most common HFE variants associated with hereditary hemochromatosis are c.845G>A (p.Wdl552Xqb), c.187C>G (p.Oaj53Ecv), c.193A>T (p.Rmz99Zht). While patients homozygous for c.845G>A (p.Tnf951Qtd) are the most likely to present clinical symptoms, less than 10% develop clinically significant iron overload with tissue and organ damage. Genetic counseling is recommended to discuss the potential clinical implications of positive results, as well as recommendations for testing family members. Genetic Coordinators are available for health care providers to discuss results at [phone] ([phone]). Test Details: Three variants analyzed: c.845G>A (p.Zbn787Rru), commonly referred to as C282Y c.187C>G (p.Rdy24Zrk), commonly referred to as H63D c.193A>T (p.Gjd50Bde), commonly referred to as S65C Methods/Limitations: DNA Analysis of the HFE gene (NM_[id number]) was performed by PCR amplification followed by restriction enzyme digestion analyses. Results must be combined with clinical information for the most accurate interpretation. Molecular- based testing is highly accurate, but as in any laboratory test, diagnostic errors may occur. False positive or false negative results may occur for reasons that include genetic variants, blood transfusions, bone marrow transplantation, somatic or tissue-specific mosaicism, mislabeled samples, or erroneous representation of family relationships. This test was developed and its performance characteristics determined by [facility]. It has not been cleared or approved by the Food and Drug Administration. References: Babar BR, Scott PC, Chaz KV, Robert LW, Jesusita ; [employer] Liver Diseases. Diagnosis and management of hemochromatosis: 2011 practice guideline by the [employer] Liver Diseases. Hepatology. 2010;54(1):328-43. doi: 10.1002/hep.72227. PMID: 57230513; PMCID: OOC7571459. Nevaeh G, Paramjit P, Werner DW, Jesus H, Jane O, Sheldon S, Antolin I, Foreign M, Miguel S. EMQN best practice guidelines for the molecular genetic diagnosis of hereditary hemochromatosis (HH). Eur J Hum Katie. 2016 Aug;24(4):479-95. doi: 10.1038/ejhg.2015.128. Epub 2014Nov 15. PMID: 29466955; PMCID: [id number]. Performed By: #### C BC, HEPATIC, BIANKA #### [place] [address] [place] #### ALPHA PHEN, HAABT, CERULOP, L-K MICRO, IGG, HBCAB, SMAB, HBSAG, HBSAB, HCV RX PCR, HARRISON, HCBIGM, HEMOCHROM, MITOM2, HAAB #### [facility] , Reviewed by: Comment Normal . [facility] Comment on above: Result Comment: [facility] Professional Component performed by: [facility] Cruz[facility] Hand, Ph.D., [facility] Director, Molecular Genetics [address] [place] [address] [place] [address] Performed at: - [facility] [address] [place], [place] [id number] Print Machine Operator: Kamille Norman [facility], Phone: [phone] PERFORMED BY: [place] [address] PATHOLOGIST LION TRAINER FRANSISCO GONCALVES M.D. Performed By: #### C BC, HEPATIC, BIANKA #### [place] [address] [place] #### ALPHA PHEN, HAABT, CERULOP, L-K MICRO, IGG, HBCAB, SMAB, HBSAG, HBSAB, HCV RX PCR, HARRISON, HCBIGM, HEMOCHROM, MITOM2, HAAB #### [facility] , Immunoglobulin Lj 5 Immunoglobulin G 1088 mg/dL Normal 603-1613 [facility] Comment on above: Result Comment: Perf ormed at: CB - [facility] [address] [id number] Print Machine Operator: Forest Mcclain PhD, Phone: [phone] Performed By: #### C BC, HEPATIC, BIANKA #### [place] [address] [place] #### ALPHA PHEN, HAABT, CERULOP, L-K MICRO, IGG, HBCAB, SMAB, HBSAG, HBSAB, HCV RX PCR, HARRISON, HCBIGM, HEMOCHROM, MITOM2, HAAB #### [facility] , Leukocytes [#/volume] correc nina for nucleated erythrocytes in Blood by Automated counOrdered By: Kianna Triplett on 05-24-2024 WBC corrected for nucl RBC Auto (Bld) [#/Vol] Leukocytes [#/volume] corrected for nucleated erythrocytes in Blood by Automated coun 4.1-10.5 [facility] Liver-Kidney Microsomal Abon 05-24-2024 Liver-Kidney Microsomal Ab <1.0 Normal 0.0-20.0 [facility] Comment on above: Result Comment: Nega tive 0.0 - 20.0 Equivocal 20.1 - 24.9 Positive >24.9 LKM type 1 antibodies are detected in patients with autoimmune hepatitis type 2 and in up to 8% of patients with chronic HCV infection. Performed at: [address] [id number] Print Machine Operator: Forest Mcclain PhD, Phone: [phone] Performed By: #### C BC, HEPATIC, BIANKA #### [address] #### ALPHA PHEN, HAABT, CERULOP, L-K MICRO, IGG, HBCAB, SMAB, HBSAG, HBSAB, HCV RX PCR, HARRISON, HCBIGM, HEMOCHROM, MITOM2, HAAB #### [facility] , Lymphocytes Auto (Bld) [#/Vo l]Ordered By: anthony [facility] on 05-24-2024 Lymphocytes (Bld) [#/Vol] Lymphocytes [#/volume] in Blood by Automated count 1.00-4.8 [facility] Lymphocytes/100 WBC Auto (Bl d)Ordered By: ad [facility] on 05-24-2024 Lymphocytes/100 WBC (Bld) Lymphocytes/100 leukocytes in Blood by Automated count . [facility] MCH Auto (RBC) [Entitic mass ]Ordered By: anthony Triplett on 05-24-2024 MCH (RBC) [Entitic mass] MCH [Entitic mass] by Automated count 27.5-35.2 [facility] MCHC Auto (RBC) [Mass/Vol]Or dered By: ad Shlomoad on 05-24-2024 MCHC (RBC) [Mass/Vol] MCHC [Mass/volume] by Automated count 32.5-35.6 [facility] MCV Auto (RBC) [Entitic vol] Ordered By: Imad Uziel on 05-24-2024 MCV (RBC) [Entitic vol] MCV [Entitic volume] by Automated count 83.5-101 [facility] Mitochondrial (M2) Antibodyo n 05-24-2024 Mitochondrial (M2) Antibody <20.0 Normal 0.0-20.0 [facility] Comment on above: Result Comment: Nega tive 0.0 - 20.0 Equivocal 20.1 - 24.9 Positive >24.9 Mitochondrial (M2) Antibodies are found in 90-96% of patients with primary biliary cirrhosis. Performed at: - [facility] [id number] Print Machine Operator: Forest Mcclain PhD, Phone: [phone] Performed By: #### C BC, HEPATIC, BAINKA #### [address] #### ALPHA PHEN, HAABT, CERULOP, L-K MICRO, IGG, HBCAB, SMAB, HBSAG, HBSAB, HCV RX PCR, HARRISON, HCBIGM, HEMOCHROM, MITOM2, HAAB #### [facility] , Monocytes Auto (Bld) [#/Vol] Ordered By: Imanthony Keenan on 05-24-2024 Monocytes (Bld) [#/Vol] Automated blood monocyte count 0.0-0.8 [facility] Monocytes/100 WBC Auto (Bld) Ordered By: Imad Asaad on 05-24-2024 Monocytes/100 WBC (Bld) Automated monocyte % . [facility] Neutrophils Auto (Bld) [#/Vo l]Ordered By: ad Asaad on 05-24-2024 Neutrophils (Bld) [#/Vol] Neutrophils [#/volume] in Blood by Automated count 1.8-7.7 [facility] Neutrophils/100 WBC Auto (Bl d)[facility] Neutrophils/100 WBC (Bld) Automated neutrophil % . [facility] No Panel InformationOrdered By: Kianna Triplett on 05-24-2024 Anti-Nuclear Antibody Comment 2 Comment . [facility] Comment on above: Pattern Potential [place] [employer] Homogeneous Systemic Lupus Erythematosus, Drug Induced Systemic Lupus Erythematosus, Chronic Autoimmune hepatitis, Juvenile Idiopathic Arthritis Speckled Sjogren Syndrome, Systemic Lupus Erythematosus, Subacute Cutaneous Lupus, Lupus, Congenital Heart Block, Mixed Connective Tissue Disease, Scleroderma-diffuse, Scleroderma-Autoimmune Myositis Overlap Syndrome, Systemic Lupus Wufpyejycvzad-Pkhekahlxik-Ygwicqcrew Myositis Overlap Syndrome, Systemic Autoimmune Rheumatic Disease, Undifferentiated Connective Tissue Disease Nucleolar Systemic Sclerosis, Scleroderma-Autoimmune Myositis Overlap Syndrome, Sjogren Syndrome, Raynaud phenomenon, Pulmonary Arterial Hypertension, Systemic Autoimmune Rheumatic Disease, Cancer Centromere Scleroderma-CREST, Limited Cutaneous SSc, Raynaud's Phenomenon, Primary Biliary Cholangitis Nuclear Dot Primary Biliary Cholangitis Nuclear Primary Biliary Cholangitis, AutoimmuneMembrane Hepatitis/Liver disease, Systemic Autoimmune Rheumatic Disease, Autoimmune Cytopenias, Linear Scleroderma, Antiphospholipid Syndrome Performed at: [employer] [address] [id number] Director: Forest Mcclain PhD, Phone: [phone] Hemochromatosis Note Comment . [facility] Comment on above: Technical Component performed at [employer] Component performed by:[employer] Raimundo Hand, Ph.D., FACMGDirector, Molecular [address] [place] [id number] at: [employer] [id number] [place], [place] [id number] Director: Kamille Norman [facility], Phone: [phone] Hepatitis C Interpretation Comment . [facility] Comment on above: Not infected with HC V unless early or acute infection issuspected (which may be delayed in an immunocompromisedindividual), or other evidence exists to indicate HCVinfection. Nucleated erythrocytes [Pres ence] in Blood by Automated countOrdered By: ImSafeRentad on 05-24-2024 Nucleated RBC Auto Ql (Bld) Nucleated erythrocytes [Presence] in Blood by Automated count 0-0.5 [facility] Platelet mean volume Auto (B ld) [Entitic vol]Ordered By: Imad Asaad on 05-24-2024 Platelet mean volume (Bld) [Entitic vol] Platelet mean volume [Entitic volume] in Blood by Automated count 6.6-10.1 [facility] Platelets Auto (Bld) [#/Vol] Ordered By: Imad Asaad on 05-24-2024 Platelets (Bld) [#/Vol] Platelets [#/volume] in Blood by Automated count 150-450 [facility] Protein [Mass/volume] in Ser um or PlasmaOrdered By: Kianna Triplett on 05-24-2024 Protein [Mass/Vol] Protein [Mass/volume ] in Serum or Plasma 6.4-8.9 [facility] RBC Auto (Bld) [#/Vol]Ordere d By: Kianna Triplett on 05-24-2024 RBC (Bld) [#/Vol] Erythrocytes [#/volu me] in Blood by Automated count 3.90-5.60 [facility] Serum hepatitis B virus surf truman antibody detectionOrdered By: Kianna Triplett on 05-24-2024 HBV surface Ab Ql (S) Hepatitis B virus surface Ab [Presence] in Serum . [facility] Comment on above: Non Reactive: Not im mune to HBV infection. Equivocal: Unable to determine if anti-HBs is present at levels consistent with immunity. Reactive: Anti-HBs concentration detected at greater than 10 mIU/mL. Individual is considered to be immune to infection with HBV. Serum homogeneous pattern an tinuclear antibody (HARRISON) titerOrdered By: Kianna Triplett on 05-24-2024 Homogenous nuclear Ab pattern (S) [Titer] Serum homogeneous pattern antinuclear antibody (HARRISON) titer . [facility] Comment on above: ICAP nomenclature: A C-1 Serum mitochondria M2 IgG an tibody assay (units/volume)Ordered By: Kianna Triplett on 05-24-2024 Mitochondria M2 IgG Qn (S) Serum mitochondria M2 IgG antibody assay (units/volume) 0.0-20.0 [facility] Comment on above: Negative 0.0 - 20.0 Equivocal 20.1 - 24.9 Positive >24.9Mitochondrial (M2) Antibodies are found in 90-96% ofpatients with primary biliary cirrhosis.Performed at: [facility] [id number] Director: Forest Mcclain PhD, Phone: [phone] Serum nuclear antibody titer Ordered By: Kianna Triplett on 05-24-2024 Nuclear Ab (S) [Titer] Serum nuclear ant ibody titer Abnormal . [facility] Comment on above: Negative <1:80 Borde rline 1:80 Positive >1:80 Serum or plasma IgG measurem ent (mass/volume)Ordered By: Kianna Triplett on 05-24-2024 IgG [Mass/Vol] IgG [Mass/volume] in Serum or Plasma [phone] [facility] Comment on above: Performed at: [facility] [address] [id number] Director: Forest Mcclain PhD, Phone: [phone] Serum or plasma albumin/glob ulin mass ratioOrdered By: Imad Asaad on 05-24-2024 Albumin/Globulin [Mass ratio] Serum or plasma albumin/globulin mass ratio [facility] Serum or plasma alpha 1 anti trypsin measurement (mass/volume)Ordered By: Imad Asaad on 05-24-2024 Alpha 1 antitrypsin [Mass/Vol] Serum pxbqa-7-fycbbdevjag measurement 101-187 [facility] Serum or plasma alpha 1 anti trypsin phenotyping identification by immunofixationOrdered By: Imad Asaad on 05-24-2024 Alpha 1 antitrypsin phenotyping [employer] Nom Serum or plasma alpha 1 antitrypsin phenotyping identification by immunofixation . [facility] Comment on above: MM Phenotype is co nsidered to be normal , producingnormal serum levels of boxme-7-fyklfowo inhibitor andnot associated with clinical disease. Associated [id number] serum levels in other phenotypes and theirincidence in the general population are shown in thetable below.Phenotype Population % function A-1-AT Conc.* Incidence % compared to MM (Typical Range) MM 86.5% 100% (96 - 189) MS 8.0% 86% (83 - 161) MZ 3.9% 61% (60 - 111) FM 0.4% 100% (93 - 191) SZ 0.3% 41% (42 - 75) SS 0.1% 64% (62 - 119) ZZ 0.05% 19% (16 - 38) FS 0.05% 70% (70 - 128) FZ Unknown 46% (44 - 88) FF Unknown Unknown*A-1-AT concentration in the homozygous MM phenotype is taken as the reference normal. Percent deficiency in each phenotype is reported relative to this reference. Ranges used to confirm phenotype.Performed at: [facility] [address] [id number] Director: Forest Mcclain PhD, Phone: [phone] at: [facility] [id number] Director: Jeannine Jacobson MD, Phone: [phone] Serum or plasma ceruloplasmi n measurement (mass/volume)Ordered By: Kianna Triplett on 05-24-2024 Ceruloplasmin [Mass/Vol] Serum or plasma ceruloplasmin measurement (mass/volume) 16.0-31.0 [facility] Comment on above: Performed at: [address] [id number] Director: Forest Mcclain PhD, Phone: [phone] Serum or plasma hepatitis B virus surface antigen detection by immunoassayOrdered By: Kianna Triplett on 05-24-2024 HBV surface Ag IA Ql Hepatitis B virus s urface Ag [Presence] in Serum or Plasma by Immunoassay Negative [facility] Serum or plasma lipoprotein a measurement (moles/volume)Ordered By: Kianna Triplett on 05-24-2024 Lipoprotein a [Moles/Vol] Serum or plasma lipoprotein a measurement (moles/volume) 0.0-20.0 [facility] Comment on above: Negative 0.0 - 20.0 Equivocal 20.1 - 24.9 Positive >24.9LKM type 1 antibodies are detected in patients withautoimmune hepatitis type 2 and in up to 8% ofpatients with chronic HCV infection.Performed at: [facility] [id number] Director: Forest cMclain PhD, Phone: [phone] Serum or plasma non-glucuron idated bilirubin measurement (mass/volume)Ordered By: Kianna Triplett on 05-24-2024 Bilirubin.indirect [Mass/Vol] Serum or plasma non-glucuronidated bilirubin measurement (mass/volume) [facility] Smooth Muscle Antibodyon Smooth Muscle Antibody 4 Normal 0-19 Th e [facility] Comment on above: Result Comment: Nega tive 0 - 19 Weak positive 20 - 30 Moderate to strong positive >30 Actin Antibodies are found in 52-85% of patients with autoimmune hepatitis or chronic active hepatitis and in 22% of patients with primary biliary cirrhosis. Performed By: #### C BC, HEPATIC, BIANKA #### [facility] [address] [place] [address] [place] #### ALPHA PHEN, HAABT, CERULOP, L-K MICRO, IGG, HBCAB, SMAB, HBSAG, HBSAB, HCV RX PCR, HARRISON, HCBIGM, HEMOCHROM, MITOM2, HAAB #### [facility] , WBC Auto (Bld) [#/Vol]Ordere d By: Imad Asaad on 05-24-2024 WBC (Bld) [#/Vol] Leukocytes [#/volume ] in Blood by Automated count 4.1-10.5 [facility] CREATININEon 03-15-2024 Creatinine [Mass/Vol] 1.1 mg/dL 0.70 - 1.30 mg/dL [facility] GFR/1.73 sq M.predicted CKD-EPI (S/P/Bld) [Vol rate/Area] >60 >=60 mL/min/1.7 3m 2 [facility] EGFR-NON AF CHINESE >60 >=60 mL/min/1.7 3m 2 [facility]INISYNC [facility] GLYCOHEMOGLOBIN A1Con 2022 ADA RECOMMENDATION SEE BELOW Normal [facility] Comment on above: Result Comment: ADA RECOMMENDED LIMIT 4.0 - 6.0 ADA THERAPEUTIC TARGET < 7.0 ACTION SUGGESTED > 7.0 Performed By: #### C FANTASMAMAN #### [facility] [address] [address] [address] Marta Ashford Glucose [Mass/Vol] 243 mg/dL Normal [facility] Comment on above: Performed By: #### C JIMENA #### [facility] [address] [place], [place] [address] Dr. Marta Ahsford HbA1c (Bld) [Mass fraction] 10.1 % Critically high 4.5-6.2 [facility] Comment on above: Performed By: #### C JIMENA #### [facility] [address] [address] [address] Marta Ashford GLYCOHEMOGLOBIN A1Con 2021 ADA RECOMMENDATION SEE BELOW Normal [facility] Comment on above: Result Comment: ADA RECOMMENDED LIMIT 4.0 - 6.0 ADA THERAPEUTIC TARGET < 7.0 ACTION SUGGESTED > 7.0 Performed By: #### A 1C #### [facility] [address] [place] [address] Dr. Marta Ashford Glucose [Mass/Vol] 266 mg/dL Normal [facility] Comment on above: Performed By: #### A 1C #### [facility] [address] [place] [address] Dr. Marta Ashford HbA1c (Bld) [Mass fraction] 10.9 % Critically high 4.5-6.2 [facility] Comment on above: Performed By: #### A 1C #### [facility] [address] [place] [address] Dr. Marta Ashford CBC AUTO DIFFon 09-10-2021 BASO # 0.1 103/ul Normal 0.0-0.1 [facility] Comment on above: Performed By: #### A 1C #### [facility] [address] [place] [address] Dr. Marta Ashford Basophils/100 WBC (Bld) 0.7 % Normal 0.2-2.0 [facility] Comment on above: Performed By: #### A 1C #### [facility] [address] [place] [address] Dr. Marta Ashford EO # 0.3 103/ul Normal 0.0-0.7 [facility] Comment on above: Performed By: #### A 1C #### [facility] [address] [place] [address] Dr. Marta Ashford Eosinophils/100 WBC (Bld) 2.9 % Normal 0.9-7.0 [facility] Comment on above: Performed By: #### A 1C #### [facility] [address] [place] [address] Dr. Marta Ashford Erythrocyte distribution width (RBC) [Ratio] 12.6 % Normal 11.0-15.0 [facility] Comment on above: Performed By: #### A 1C #### [facility] [address] [place] [address] Dr. Marta Ashford Hematocrit (Bld) [Volume fraction] 45.0 % Normal 42.0-54.0 [facility] Comment on above: Performed By: #### A 1C #### [facility] [address] [place] [address] Dr. Marta Ashford Hemoglobin (Bld) [Mass/Vol] 14.4 g/dL Normal 14.0-18.0 [facility] Comment on above: Performed By: #### A 1C #### [facility] [address] [place] [address] Dr. Marta Ashford IG # 0.06 10e3/ul Critically high 0.00-0.03 [facility] Comment on above: Performed By: #### A 1C #### [facility] [address] [place] [address] Dr. Marta Ashford IG % 0.6 % Critically high 0.0-0.5 [facility] Comment on above: Performed By: #### A 1C #### [facility] [address] [place] [address] Dr. Marta Ashford LYMPH # 3.3 103/ul Normal 1.2-3.8 [facility] Comment on above: Performed By: #### A 1C #### [facility] [address] [place] [address] Dr. Marta Ashford Lymphocytes/100 WBC (Bld) 34.5 % Normal 20.5-60.0 [facility] Comment on above: Performed By: #### A 1C #### [facility] [address] [place] [address] Dr. Marta Ashford MANUAL DIFF REQ NO Normal [facility] Comment on above: Performed By: #### A 1C #### [facility] [address] [place] [address] Dr. Marta Ashford MCH (RBC) [Entitic mass] 31.0 pg Normal 25.9-34.0 [facility] Comment on above: Performed By: #### A 1C #### [facility] [address] [place] [address] Dr. Marta Ashford MCHC (RBC) [Mass/Vol] 32.0 g/dL Normal 29.9-35.2 [facility] Comment on above: Performed By: #### A 1C #### [facility] [address] [place] [address] Dr. Marta Ashford MCV (RBC) [Entitic vol] 96.8 fL Critically high 80.0-94.0 [facility] Comment on above: Performed By: #### A 1C #### [facility] [address] [place] [address] Dr. Marta Ashford MONO # 0.7 103/ul Normal 0.3-0.8 [facility] Comment on above: Performed By: #### A 1C #### [facility] [address] [place] [address] Dr. Marta Ashford Monocytes/100 WBC (Bld) 7.8 % Normal 1.7-12.0 [facility] Comment on above: Performed By: #### A 1C #### [facility] [address] [place] [address] Dr. Marta Ashford NEUT # 5.1 103/ul Normal 1.4-6.5 [facility] Comment on above: Performed By: #### A 1C #### [facility] [address] [place] [address] Dr. Marta Ashford Neutrophils/100 WBC (Bld) 53.5 % Normal 43.0-75.0 [facility] Comment on above: Performed By: #### A 1C #### [facility] [address] [place] [address] Dr. Marta Ashford Platelet mean volume (Bld) [Entitic vol] 12.3 fL Normal 9.5-13.5 [facility] Comment on above: Performed By: #### A 1C #### [facility] [address] [place] [address] Dr. Marta Ashford PLT 170 103/ul Normal 150-450 [facility] Comment on above: Performed By: #### A 1C #### [facility] [address] [place] [address] Dr. Marta Ashford RBC 4.65 106/ul Critically low 4.70-6.10 [facility] Comment on above: Performed By: #### A 1C #### [facility] [address] [address] [address] Marta Ashford WBC 9.5 103/ul Normal 4.0-11.0 [facility] Comment on above: Performed By: #### A 1C #### [facility] [address] [address] [address] Marta Ashford DIRECT LDLon 09-10-2021 Cholesterol in LDL [Mass/Vol] 96 mg/dL Normal [facility] Comment on above: Performed By: #### C JIMENA #### [facility] [address] [address] [address] Marta Ashford DLDL NORMAL SEE BELOW Normal [facility] Comment on above: Result Comment: <100 mg/dl OPTIMAL 100 - 129 mg/dl NEAR OR ABOVE OPTIMAL 130 - 159 mg/dl BORDERLINE HIGH 160 - 189 mg/dl HIGH >190 mg/dl VERY HIGH Performed By: #### C JIMENA #### [facility] [address] [place] [address] Dr. Marta Ashford GLYCOHEMOGLOBIN A1Con 2021 ADA RECOMMENDATION SEE BELOW Normal [facility] Comment on above: Result Comment: ADA RECOMMENDED LIMIT 4.0 - 6.0 ADA THERAPEUTIC TARGET < 7.0 ACTION SUGGESTED > 7.0 Performed By: #### A 1C #### [facility] [address] [place] [address] Dr. Marta Ashford Glucose [Mass/Vol] 223 mg/dL Normal [facility] Comment on above: Performed By: #### A 1C #### [facility] [address] [address] [address] Marta Ashford HbA1c (Bld) [Mass fraction] 9.4 % Critically high 4.5-6.2 [facility] Comment on above: Performed By: #### A 1C #### [facility] [address] [place] [address] Dr. Marta Ashford LIPID PROFILEon 09-10-2021 CHOL-HDL RATIO NORM SEE BELOW Normal [facility] Comment on above: Result Comment: 3.3 - 4.4 LOW RISK 4.4 - 7.1 AVERAGE RISK 7.1 - 11.0 MODERATE RISK >11.0 HIGH RISK Performed By: #### C JIMENA #### [facility] [address] [place] [address] Dr. Marta Ashford Cholesterol [Mass/Vol] 209 mg/dL Critically high <=200 [facility] Comment on above: Performed By: #### C JIMENA #### [facility] [address] [address] [address] Marta Ashford Cholesterol in HDL [Mass/Vol] 34 mg/dL Critically low 40-60 [facility] Comment on above: Performed By: #### C JIMENA #### [facility] [address] [place] [address] Dr. Marta Ashford Cholesterol.total/Chol esterol in HDL [Mass ratio] 6.1 {ratio} Normal [facility] Comment on above: Performed By: #### C JIMENA #### [facility] [address] [place] [address] Dr. Marta Ahsford HDL NORMAL > or = 60 mg/dl - LO W CARDIOVASCULAR RISK <40 mg/dl - HIGH CARDIOVASCULAR RISK Normal [facility] Comment on above: Performed By: #### C JIMENA #### [facility] [address] [place] [address] Dr. Marta Ashford LDL CALC NORMAL SEE BELOW Normal [facility] Comment on above: Result Comment: <100 mg/dl OPTIMAL 100 - 129 mg/dl NEAR OR ABOVE OPTIMAL 130 - 159 mg/dl BORDERLINE HIGH 160 - 189 mg/dl HIGH >190 mg/dl VERY HIGH Performed By: #### C JIMENA #### [facility] [address] [place] [address] Dr. Marta Ashford Triglyceride [Mass/Vol] 591 mg/dL Critically high <=150 [facility] Comment on above: Performed By: #### C JIMENA #### [facility] [address] [place] [address] Dr. Marta Ashford VLDL CALC 118.2 mg/dL Normal [facility] Comment on above: Performed By: #### C JIMENA #### [facility] [address] [place] [address] Dr. Marta Ashford LIVER PROFILEon 09-10-2021 Albumin [Mass/Vol] 3.6 g/dL Normal 3.4-5.0 [facility] Comment on above: Performed By: #### C JIMENA #### [facility] [address] [place] [address] Dr. Marta Ashford Albumin/Globulin [Mass ratio] 0.9 {ratio} Normal [facility] Comment on above: Performed By: #### C JIMENA #### [facility] [address] [place] [address] Dr. Marta Ashford ALP [Catalytic activity/Vol] 75 U/L Normal 46-116 [facility] Comment on above: Performed By: #### C JIMENA #### [facility] [address] [place] [address] Dr. Marta Ashford ALT [Catalytic activity/Vol] 40 U/L Normal 16-63 [facility] Comment on above: Performed By: #### C JIMENA #### [facility] [address] [place] [address] Dr. Marta Ashford AST [Catalytic activity/Vol] 24 U/L Normal 15-37 [facility] Comment on above: Performed By: #### C JIMENA #### [facility] [address] [place] [address] Dr. Marta Ashford BILI, CONJUGATED 0.1 mg/dL Normal 0.0-0.2 [facility] Comment on above: Performed By: #### C JIMENA #### [facility] [address] [place] [address] Dr. Marta Ashford Bilirubin [Mass/Vol] 0.3 mg/dL Normal 0.2-1.0 [facility] Comment on above: Performed By: #### C JIMENA #### [facility] [address] [place] [address] Dr. Marta Ashford Globulin (S) [Mass/Vol] 4.1 g/dL Normal [facility] Comment on above: Performed By: #### C JIMENA #### [facility] [address] [place] [address] Dr. Marta Ashford Protein [Mass/Vol] 7.7 g/dL Normal 6.1-8.2 [facility] Comment on above: Performed By: #### C BCMAN #### [facility] [address] [address] [address] Marta Ashford PROF CHEM 8 (BAS METB)on Anion gap [Moles/Vol] 11.0 mmol/L Normal [facility] Comment on above: Performed By: #### C BCMAN #### [facility] [address] [address] [address] Marta Ashford Calcium [Mass/Vol] 8.6 mg/dL Normal 8.5-10.1 [facility] Comment on above: Performed By: #### C BCMAN #### [facility] [address] [place] [address] Dr. Marta Ashford Chloride [Moles/Vol] 99 mmol/L Normal 98-107 [facility] Comment on above: Performed By: #### C BCVALERY #### [facility] [address] [place] [address] Dr. Marta Ashford CO2 [Moles/Vol] 27.0 mmol/L Normal 21.0-32.0 [facility] Comment on above: Performed By: #### C BCMAN #### [facility] [address] [place] [address] Dr. Marta Ashford Creatinine [Mass/Vol] 1.00 mg/dL Normal 0.70-1.30 [facility] Comment on above: Performed By: #### C BCMAN #### [facility] [address] [place] [address] Dr. Marta Ashford EGFR-AF CHINESE >60 Normal >=60 [facility] Comment on above: Performed By: #### C BCMAN #### [facility] [address] [place] [address] Dr. Marta Ashford EGFR-NON AF CHINESE >60 Normal >=60 [facility] Comment on above: Performed By: #### C BCMAN #### [facility] [address] [address] [address] Marta Ashford Glucose [Mass/Vol] 289 mg/dL Critically high 74-106 [facility] Comment on above: Performed By: #### C JIMENA #### [facility] [address] [address] [address] Marta Ashford Potassium [Moles/Vol] 4.0 mmol/L Normal 3.5-5.1 [facility] Comment on above: Performed By: #### C JIMENA #### [facility] [address] [address] [address] Marta Ashford Sodium [Moles/Vol] 133 mmol/L Critically low 136-145 Th e [facility] Comment on above: Performed By: #### C JIMENA #### [facility] [address] [place] [address] Dr. Marta Ashford Urea nitrogen [Mass/Vol] 21.0 mg/dL Critically high 7.0-18.0 [facility] Comment on above: Performed By: #### C JIMENA #### [facility] [address] [place] [address] Dr. Marta Ashford Urea nitrogen/Creatinine [Mass ratio] 21.0 mg/mg Normal [facility] Comment on above: Performed By: #### Shira HESS #### [facility] [address] [place] [address] Dr. Marta Ashford TSHon 09-10-2021 TSH 2.331 uIU/mL Normal 0.470-4.68 0 [facility] Comment on above: Performed By: #### C JIMENA #### [facility] [address] [place] [address] Dr. Marta Ashford TSH RANGE SEE BELOW Normal [facility] Comment on above: Result Comment: <0.3 4 UIU/ml HYPERTHYROID 0.34-5.60 UIU/ml EUTHYROID >5.60 UIU/ml HYPOTHYROID Performed By: #### C JIMENA #### [facility] [address] [place] [address] Dr. Marta Ashford BLOOD CULTURE ID/SENSon 04- Aerobe ID + Suscept Final report Abnormal [facility] Comment on above: Performed By: #### C XPOSBL #### [facility] [address] [place] [address] Dr. Marta Ashford Antimicrobial Susceptibility Comment Normal [facility] Comment on above: Result Comment: S = [...] S Performed By: #### C XPOSBL #### [facility] [address] [place] [address] Dr. Marta Ashford Result 1 Comment Abnormal [facility] Comment on above: Result Comment: Esch erichia coli, identified by an automated biochemical system. Received aerobic bottle only. Performed By: #### C XPOSBL #### [facility] [address] [place] [address] Dr. Marta Ashford CBC AUTO DIFFon 08-18-2021 BASO # 0.1 103/ul Normal 0.0-0.1 [facility] Comment on above: Performed By: #### A 1C #### [facility] [address] [place] [address] Dr. Marta Ashford Basophils/100 WBC (Bld) 0.5 % Normal 0.2-2.0 [facility] Comment on above: Performed By: #### A 1C #### [facility] [address] [place] [address] Dr. Marta Ashford EO # 0.1 103/ul Normal 0.0-0.7 [facility] Comment on above: Performed By: #### A 1C #### [facility] [address] [place] [address] Dr. Marta Ashford Eosinophils/100 WBC (Bld) 0.8 % Critically low 0.9-7.0 [facility] Comment on above: Performed By: #### A 1C #### [facility] [address] [place] [address] Dr. Marta Ashford Erythrocyte distribution width (RBC) [Ratio] 12.8 % Normal 11.0-15.0 [facility] Comment on above: Performed By: #### A 1C #### [facility] [address] [place] [address] Dr. Marta Ashford Hematocrit (Bld) [Volume fraction] 40.1 % Critically low 42.0-54.0 [facility] Comment on above: Performed By: #### A 1C #### [facility] [address] [place] [address] Dr. Marta Ashford Hemoglobin (Bld) [Mass/Vol] 12.9 g/dL Critically low 14.0-18.0 [facility] Comment on above: Performed By: #### A 1C #### [facility] [address] [place] [address] Dr. Marta Ashford IG # 0.17 10e3/ul Critically high 0.00-0.03 [facility] Comment on above: Performed By: #### A 1C #### [facility] [address] [place] [address] Dr. Marta Ashford IG % 1.0 % Critically high 0.0-0.5 [facility] Comment on above: Performed By: #### A 1C #### [facility] [address] [place] [address] Dr. Marta Ashford LYMPH # 3.3 103/ul Normal 1.2-3.8 [facility] Comment on above: Performed By: #### A 1C #### [facility] [address] [place] [address] Dr. Marta Ashford Lymphocytes/100 WBC (Bld) 19.0 % Critically low 20.5-60.0 [facility] Comment on above: Performed By: #### A 1C #### [facility] [address] [place] [address] Dr. Marta Ashford MANUAL DIFF REQ NO Normal [facility] Comment on above: Performed By: #### A 1C #### [facility] [address] [place] [address] Dr. Marta Ashford MCH (RBC) [Entitic mass] 30.5 pg Normal 25.9-34.0 [facility] Comment on above: Performed By: #### A 1C #### [facility] [address] [place] [address] Dr. Marta Ashford MCHC (RBC) [Mass/Vol] 32.2 g/dL Normal 29.9-35.2 [facility] Comment on above: Performed By: #### A 1C #### [facility] [address] [place] [address] Dr. Marta Ashford MCV (RBC) [Entitic vol] 94.8 fL Critically high 80.0-94.0 [facility] Comment on above: Performed By: #### A 1C #### [facility] [address] [place] [address] Dr. Marta Ashford MONO # 1.2 103/ul Critically high 0.3-0.8 [facility] Comment on above: Performed By: #### A 1C #### [facility] [address] [place] [address] Dr. Marta Ashford Monocytes/100 WBC (Bld) 6.7 % Normal 1.7-12.0 [facility] Comment on above: Performed By: #### A 1C #### [facility] [address] [place] [address] Dr. Marta Ashford NEUT # 12.5 103/ul Critically high 1.4-6.5 [facility] Comment on above: Performed By: #### A 1C #### [facility] [address] [place] [address] Dr. Marta Ashford Neutrophils/100 WBC (Bld) 72.0 % Normal 43.0-75.0 [facility] Comment on above: Performed By: #### A 1C #### [facility] [address] [place] [address] Dr. Marta Ashford Platelet mean volume (Bld) [Entitic vol] 11.8 fL Normal 9.5-13.5 [facility] Comment on above: Performed By: #### A 1C #### [facility] [address] [address] [address] Marta Ashford PLT 149 103/ul Critically low 150-450 [facility] Comment on above: Performed By: #### A 1C #### [facility] [address] [place] [address] Dr. Marta Ashford RBC 4.23 106/ul Critically low 4.70-6.10 [facility] Comment on above: Performed By: #### A 1C #### [facility] [address] [address] [address] Marta Ashford WBC 17.4 103/ul Critically high 4.0-11.0 [facility] Comment on above: Performed By: #### A 1C #### [facility] [address] [place] [address] Dr. Marta Ashford CULTURE URINEon 08-18-2021 CULTURE URINE Isolate 1 Escherichia coli >100,000 cfu/ml of ORGANISM 1 Escherichia coli ANTIBIOTIC M.I.C RX STATUS Ampicillin >=32 R F Ampicillin/Sulbactam >=32 R F Piperacillin/Tazobactam <=4 S F Cefazolin <=4 S F Ceftazidime <=1 S F Ceftriaxone <=1 S F Ertapenem <=0.5 S F Imipenem <=0.25 S F Amikacin <=2 S F Gentamicin <=1 S F Tobramycin <=1 S F Ciprofloxacin <=0.25 S F Levofloxacin <=0.12 S F Nitrofurantoin <=16 S F Trimethoprim/Sulfamethoxazo le <=20 S F Normal [facility] Comment on above: Performed By: #### A 1C #### [facility] [address] [place] [address] Dr. Marta Ashford PH VENOUS BLOODon 08-18-2021 PCO2 VENOUS 36.1 mmHg Critically low 40.0-52.0 [facility] Comment on above: Performed By: #### A 1C #### [facility] [address] [place] [address] Dr. Marta Ashford pH VENOUS 7.452 Critically high 7.330-7.43 0 [facility] Comment on above: Performed By: #### A 1C #### [facility] [address] [address] [address] Marta Ashford POINT OF CARE GLUCOSEon 08-09 Glucose [Mass/Vol] 276 mg/dL Critically high 74-106 [facility] Comment on above: Performed By: #### P OCGLUC #### [facility] [address] [place] [address] Dr. Marta Ashford PROF CHEM 8 (BAS METB)on Anion gap [Moles/Vol] 12.5 mmol/L Normal [facility] Comment on above: Performed By: #### P HVEN #### [facility] [address] [address] [address] Marta Ashford Calcium [Mass/Vol] 8.5 mg/dL Normal 8.5-10.1 [facility] Comment on above: Performed By: #### P HVEN #### [facility] [address] [place] [address] Dr. Marta Ashford Chloride [Moles/Vol] 105 mmol/L Normal 98-107 [facility] Comment on above: Performed By: #### P HVEN #### [facility] [address] [place] [address] Dr. Marta Ashford CO2 [Moles/Vol] 25.5 mmol/L Normal 22.0-30.0 [facility] Comment on above: Performed By: #### P HVEN #### [facility] [address] [place] [address] Dr. Marta Ashford Creatinine [Mass/Vol] 0.90 mg/dL Normal 0.66-1.25 [facility] Comment on above: Performed By: #### P HVEN #### [facility] [address] [place] [address] Dr. Marta Ashford EGFR-AF CHINESE >60 Normal >=60 [facility] Comment on above: Performed By: #### P HVEN #### [facility] [address] [place] [address] Dr. Marta Ashford EGFR-NON AF CHINESE >60 Normal >=60 [facility] Comment on above: Performed By: #### P HVEN #### [facility] [address] [address] [address] Marta Ashford Glucose [Mass/Vol] 239 mg/dL Critically high 74-106 [facility] Comment on above: Performed By: #### P HVEN #### [facility] [address] [address] [address] Marta Ashford Potassium [Moles/Vol] 4.0 mmol/L Normal 3.4-5.0 [facility] Comment on above: Performed By: #### P HVEN #### [facility] [address] [address] [address] Marta Ashford Sodium [Moles/Vol] 139 mmol/L Normal 137-145 [facility] Comment on above: Performed By: #### P HVEN #### [facility] [address] [place] [address] Dr. Marta Ashford Urea nitrogen [Mass/Vol] 13.0 mg/dL Normal 7.0-18.0 [facility] Comment on above: Performed By: #### P HVEN #### [facility] [address] [place] [address] Dr. Marta Ashford Urea nitrogen/Creatinine [Mass ratio] 14.4 mg/mg Normal [facility] Comment on above: Performed By: #### P HVEN #### [facility] [address] [place] [address] Dr. Marta Ashford CBC W MANUAL DIFFon 08-18-19 22 ATYPICAL LYMPH # Normal [facility] Comment on above: Performed By: #### C BCMAN #### [facility] [address] [place] [address] Dr. Marta Ashford ATYPICAL LYMPH % Normal [facility] Comment on above: Performed By: #### C BCVALERY #### [facility] [address] [place] [address] Dr. Marta Ashford BAND # 2.7 103/ul Critically high 0.0-0.3 [facility] Comment on above: Performed By: #### C JIMENA #### [facility] [address] [place] [address] Dr. Marta Ashford BAND % 15 % Critically high 0-5 [facility] Comment on above: Performed By: #### C BCMAN #### [facility] [address] [address] [address] Marta Ashford BASOM # 0.00 103/ul Normal 0.00-0.10 [facility] Comment on above: Performed By: #### C BCVALERY #### [facility] [address] [address] [address] Marta Ashford BASOM % 0.0 % Critically low 0.2-2.0 [facility] Comment on above: Performed By: #### C BCVALERY #### [facility] [address] [place] [address] Dr. Marta Ashford BLAST # Normal [facility] Comment on above: Performed By: #### C JIMENA #### [facility] [address] [place] [address] Dr. Marta Ashford BLAST % Normal [facility] Comment on above: Performed By: #### C JIMENA #### [facility] [address] [place] [address] Dr. Marta Ashford CORRECTED WBC Normal 4.0-11.0 [facility] Comment on above: Performed By: #### C BCVALERY #### [facility] [address] [place] [address] Dr. Marta Ashford EOS # 0.00 103/ul Normal 0.00-0.70 [facility] Comment on above: Performed By: #### C BCVALERY #### [facility] [address] [place] [address] Dr. Marta Ashford EOS% 0.0 % Critically low 0.9-7.0 [facility] Comment on above: Performed By: #### C BCVALERY #### [facility] [address] [place] [address] Dr. Marta Ashford HCT 37.5 % Critically low 42.0-54.0 [facility] Comment on above: Performed By: #### C JIMENA #### [facility] [address] [place] [address] Dr. Marta Ashford HGB 12.1 g/dl Critically low 14.0-18.0 [facility] Comment on above: Performed By: #### C JIMENA #### [facility] [address] [place] [address] Dr. Marta Ashford LYMPHM # 3.20 103/ul Normal 1.20-3.80 [facility] Comment on above: Performed By: #### C JIMENA #### [facility] [address] [place] [address] Dr. Marta Ashford LYMPHM% 18.0 % Critically low 20.5-60.0 [facility] Comment on above: Performed By: #### C JIMENA #### [facility] [address] [place] [address] Dr. Marta Ashford MCH 31.2 pg Normal 25.9-34.0 [facility] Comment on above: Performed By: #### C JIMENA #### [facility] [address] [place] [address] Dr. Marta Ashford MCHC 32.3 g/dl Normal 29.9-35.2 [facility] Comment on above: Performed By: #### C JIMENA #### [facility] [address] [place] [address] Dr. Marta Ashford MCV 96.6 fL Critically high 80.0-94.0 [facility] Comment on above: Performed By: #### Shira HESS #### [facility] [address] [place] [address] Dr. Marta Ashford METAMYELOCYTE # Normal [facility] Comment on above: Performed By: #### C JIMENA #### [facility] [address] [place] [address] Dr. Marta Ashford METAMYELOCYTE % Normal [facility] Comment on above: Performed By: #### C JIMENA #### [facility] [address] [place] [address] Dr. Marta Ashford MONOM# 1.25 103/ul Critically high 0.30-0.80 [facility] Comment on above: Performed By: #### C JIMENA #### [facility] [address] [place] [address] Dr. Marta Ashford MONOM% 7.0 % Normal 1.7-12.0 [facility] Comment on above: Performed By: #### C JIMENA #### [facility] [address] [place] [address] Dr. Marta Ashford MPV 11.4 fL Normal 9.5-13.5 [facility] Comment on above: Performed By: #### C JIMENA #### [facility] [address] [place] [address] Dr. Marta Ashford MYELOCYTE # Normal [facility] Comment on above: Performed By: #### C JIMENA #### [facility] [address] [place] [address] Dr. Marta Ashford MYELOCYTE % Normal [facility] Comment on above: Performed By: #### Shira HESS #### [facility] [address] [place] [address] Dr. Marta Ashford NRBC Normal [facility] Comment on above: Performed By: #### Shira HESS #### [facility] [address] [place] [address] Dr. Marta Ashford PLT 106 103/ul Critically low 150-450 [facility] Comment on above: Performed By: #### C JIMENA #### [facility] [address] [place] [address] Dr. Marta Ashford RBC 3.88 106/ul Critically low 4.70-6.10 [facility] Comment on above: Performed By: #### C JIMENA #### [facility] [address] [place] [address] Dr. Marta Ashford RDW 13.1 % Normal 11.0-15.0 [facility] Comment on above: Performed By: #### C JIMENA #### [facility] [address] [place] [address] Dr. Marta Ashford SEG # 10.68 103/ul Critically high 1.40-6.50 [facility] Comment on above: Performed By: #### C JIMENA #### [facility] [address] [address] [address] Marta Ashford SEG % 60.0 % Normal 43.0-75.0 [facility] Comment on above: Performed By: #### C BCMAN #### [facility] [address] [place] [address] Dr. Marta Ashford WBC 17.8 103/ul Critically high 4.0-11.0 [facility] Comment on above: Performed By: #### C JIMENA #### [facility] [address] [place] [address] Dr. Marta Ashford PH VENOUS BLOODon 08-17-2021 PCO2 VENOUS 37.5 mmHg Critically low 40.0-52.0 [facility] Comment on above: Performed By: #### P JOSE #### [facility] [address] [place] [address] Dr. Marta Ashford pH VENOUS 7.390 Normal 7.330-7.43 0 [facility] Comment on above: Performed By: #### P JOSE #### [facility] [address] [place] [address] Dr. Marta Ashford POINT OF CARE GLUCOSEon Glucose [Mass/Vol] 261 mg/dL Critically high [address] [place] [address] Comment on above: Performed By: #### A 1C #### [facility] [address] [place] [address] Dr. Marta Ashford Glucose [Mass/Vol] 213 mg/dL Critically high [facility] Comment on above: Performed By: #### A 1C #### [facility] [address] [place] [address] Dr. Marta Ashford Glucose [Mass/Vol] 305 mg/dL Critically high [facility] Comment on above: Performed By: #### A 1C #### [facility] [address] [place] [address] Dr. Marta Ashford PROF CHEM 8 (BAS METB)on Anion gap [Moles/Vol] 13.8 mmol/L Normal [facility] Comment on above: Performed By: #### A 1C #### [facility] [address] [address] [address] Marta Ashford Calcium [Mass/Vol] 7.3 mg/dL Critically low 8.5-10.1 [facility] Comment on above: Performed By: #### A 1C #### [facility] [address] [address] [address] Marta Ashford Chloride [Moles/Vol] 108 mmol/L Critically high 98-107 [facility] Comment on above: Performed By: #### A 1C #### [facility] [address] [address] [address] Marta Ashford CO2 [Moles/Vol] 22.2 mmol/L Normal 22.0-30.0 [facility] Comment on above: Performed By: #### A 1C #### [facility] [address] [place] [address] Dr. Marta Ashford Creatinine [Mass/Vol] 0.95 mg/dL Normal 0.66-1.25 [facility] Comment on above: Performed By: #### A 1C #### [facility] [address] [address] [address] Marta Ashford EGFR-AF CHINESE >60 Normal >=60 [facility] Comment on above: Performed By: #### A 1C #### [facility] [address] [place] [address] Dr. Marta Ashford EGFR-NON AF CHINESE >60 Normal >=60 [facility] Comment on above: Performed By: #### A 1C #### [facility] [address] [place] [address] Dr. Matra Ashford Glucose [Mass/Vol] 181 mg/dL Critically high 74-106 [facility] Comment on above: Performed By: #### A 1C #### [facility] [address] [place] [address] Dr. Marta Ashford Potassium [Moles/Vol] 4.0 mmol/L Normal 3.4-5.0 [facility] Comment on above: Performed By: #### A 1C #### [facility] [address] [place] [address] Dr. Marta Ashford Sodium [Moles/Vol] 140 mmol/L Normal 137-145 [facility] Comment on above: Performed By: #### A 1C #### [facility] [address] [place] [address] Dr. Marta Ashford Urea nitrogen [Mass/Vol] 17.0 mg/dL Normal 7.0-18.0 [facility] Comment on above: Performed By: #### A 1C #### [facility] [address] [place] [address] Dr. Marta Ashford Urea nitrogen/Creatinine [Mass ratio] 17.9 mg/mg Normal [facility] Comment on above: Performed By: #### A 1C #### [facility] [address] [place] [address] Dr. Marta Ashford BLOOD CULTURE ID PANELon A. baumannii Not detected [facility] Comment on above: Performed By: #### A 1C #### [facility] [address] [place] [address] Dr. Marta Ashford BCID CONTROLS PASSED [facility] Comment on above: Performed By: #### A 1C #### [facility] [address] [place] [address] Dr. Marta GONSALEZDBTHD BLOOD CULTURE BOTTLE INFORMATION Normal [facility] Comment on above: Performed By: #### A 1C #### [facility] [address] [place] [address] Dr. Marta Ashford BCIDHD1 ANTIMICROBIAL RESIST ANCE GENES [facility] Comment on above: Performed By: #### A 1C #### [facility] [address] [place] [address] Dr. Marta Ashford BCIDHD2 SEE BELOW [facility] Comment on above: Result Comment: KPC- carbapenem resistance gene, mecA- methecillin resistance gene, van A/B- vancomycin resistance gene Note: Antimicrobial resitance can occur via multiple mechanisms. A Not Detected result for the [employer] antomicrobial resistance gene assays does not indicate antimicrobial susceptibility. Subculturing is required for specis identificationand susceptibility testing of isolates. Performed By: #### A 1C #### [facility] [address] [place] [address] Dr. Marta Ashford BCIDHD3 Positive [facility] Comment on above: Performed By: #### A 1C #### [facility] [address] [place] [address] Dr. Marta Ashford BCIDHD4 Negative [facility] Comment on above: Performed By: #### A 1C #### [facility] [address] [place] [address] Dr. Marta Ashford BCIDHD5 YEAST Normal [facility] Comment on above: Performed By: #### A 1C #### [facility] [address] [place] [address] Dr. Marta Ashford BCIDHD6 SEE BELOW [facility] Comment on above: Result Comment: Note : All genus and species BCID [employer] results will be verified post subculturing via Maldi-Tof MS testing methodology. Performed By: #### A 1C #### [facility] [address] [place] [address] Dr. Marta Castillo Set: Set 2 [facility] Comment on above: Performed By: #### A 1C #### [facility] [address] [place] [address] Dr. Marta Ashford Bottle: Aerobic Normal [facility] Comment on above: Performed By: #### A 1C #### [facility] [address] [place] [address] Dr. Marta Ashford Surekha albicans Not detected Normal [facility] Comment on above: Performed By: #### A 1C #### [facility] [address] [place] [address] Dr. Marta Ashford Surekha glabrata Not detected Normal [facility] Comment on above: Performed By: #### A 1C #### [facility] [address] [place] [address] Dr. Marta Ashford Surekha Krusei Not detected Normal [facility] Comment on above: Performed By: #### A 1C #### [facility] [address] [place] [address] Dr. Marta Ashford Surekha Parapsilosis Not detected Normal [facility] Comment on above: Performed By: #### A 1C #### [facility] [address] [place] [address] Dr. Marta Ashford Surekha Tropicalis Not detected Normal [facility] Comment on above: Performed By: #### A 1C #### [facility] [address] [place] [address] Dr. Marta Ashford E. Cloacae complex Not detected Normal [facility] Comment on above: Performed By: #### A 1C #### [facility] [address] [place] [address] Dr. Marta Ashford Enterobacteriaceae Detected Critically abnormal [facility] Comment on above: Performed By: #### A 1C #### [facility] [address] [place] [address] Dr. Marta Ashford Enterococcus Not detected Normal [facility] Comment on above: Performed By: #### A 1C #### [facility] [address] [place] [address] Dr. Marta Ashford Escheria coli Detected Critically abnormal [facility] Comment on above: Performed By: #### A 1C #### [facility] [address] [place] [address] Dr. Marta Ashford K. oxytoca Not detected Normal [facility] Comment on above: Performed By: #### A 1C #### [facility] [address] [place] [address] Dr. Marta Ashford K. pneumoniae Not detected Normal [facility] Comment on above: Performed By: #### A 1C #### [facility] [address] [place] [address] Dr. Marta Ashford KPC Resistant Gene Not detected Normal [facility] Comment on above: Performed By: #### A 1C #### [facility] [address] [place] [address] Dr. Marta Ashford List. monocytogenes Not detected Normal [facility] Comment on above: Performed By: #### A 1C #### [facility] [address] [place] [address] Dr. Marta Ashford mecA Resistant Gene Not Applicable Normal [facility] [place] Comment on above: Performed By: #### A 1C #### [facility] [address] [place] [address] Dr. Marta Ashford Proteus Not detected Normal [facility] Comment on above: Performed By: #### A 1C #### [facility] [address] [place] [address] Dr. Marta Ashford Pseud. aeruginosa Not detected Normal [facility] Comment on above: Performed By: #### A 1C #### [facility] [address] [place] [address] Dr. Marta Ashford Seratia marcescens Not detected Normal [facility] Comment on above: Performed By: #### A 1C #### [facility] [address] [place] [address] Dr. Marta Ashford Site: left hand Normal [facility] Comment on above: Performed By: #### A 1C #### [facility] [address] [place] [address] Dr. Marta Ashford Staph. aureus Not detected Normal [facility] Comment on above: Performed By: #### A 1C #### [facility] [address] [place] [address] Dr. Marta Ashford Staphylococcus Not detected Normal [facility] Comment on above: Performed By: #### A 1C #### [facility] [address] [place] [address] Dr. Marta Ashford Strep. agalactiae Not detected Normal [facility] Comment on above: Performed By: #### A 1C #### [facility] [address] [place] [address] Dr. Marta Ashford Strep. pneumoniae Not detected Normal [facility] Comment on above: Performed By: #### A 1C #### [facility] [address] [place] [address] Dr. Marta Ashford Strep. pyogenes Not detected Normal [facility] Comment on above: Performed By: #### A 1C #### [facility] [address] [place] [address] Dr. Marta Ashford Streptococcus Not detected Normal [facility] Comment on above: Performed By: #### A 1C #### [facility] [address] [place] [address] Dr. Marta Quinn/Lucille Resist. Gene Not Applicable Normal [facility] Comment on above: Performed By: #### A 1C #### [facility] [address] [place] [address] Dr. Marta Ashford CARDIAC PAOLO 3-6on 2 CK [Catalytic activity/Vol] 112 U/L Normal 55-170 [facility] Comment on above: Performed By: #### P HVEN #### [facility] [address] [place] [address] Dr. Marta Ashford CK.MB [Mass/Vol] 1.13 ng/mL Normal <=2.37 [facility] Comment on above: Performed By: #### P HVEN #### [facility] [address] [place] [address] Dr. Marta Ashford HSTROP 283.1 pg/mL Critically high 4.0-42.2 [facility] Comment on above: Result Comment: CUT- OFF POINTS HAVE BEEN ESTABLISHED BASED ON THE FOURTH UNIVERSAL DEFINITIONS OF MYOCARDIAL INFARCTION. THE UPPER REFERENCE LIMIT (URL) OF TROPONIN, DEFINED THE 99TH PERCENTILE OF cTnI DISTRIBUTION IN A REFERENCE POPULATION, HAS BEEN CONFIRMED THE DECISION THRESHOLD FOR [place] DIAGNOSIS. TEST REPEATED CRITICAL VALUE VERIFIED Performed By: #### P HVEN #### [facility] [address] [place] [address] Dr. Marta Ashford CK [Catalytic activity/Vol] 98 U/L Normal 55-170 [facility] Comment on above: Performed By: #### A 1C #### [facility] [address] [place] [address] Dr. Marta Ashford CK.MB [Mass/Vol] 1.08 ng/mL Normal <=2.37 [facility] Comment on above: Performed By: #### A 1C #### [facility] [address] [place] [address] Dr. Marta Ashford HSTROP 310.8 pg/mL Critically high 4.0-42.2 [facility] Comment on above: Result Comment: CUT- OFF POINTS HAVE BEEN ESTABLISHED BASED ON THE FOURTH UNIVERSAL DEFINITIONS OF MYOCARDIAL INFARCTION. THE UPPER REFERENCE LIMIT (URL) OF TROPONIN, DEFINED THE 99TH PERCENTILE OF cTnI DISTRIBUTION IN A REFERENCE POPULATION, HAS BEEN CONFIRMED THE DECISION THRESHOLD FOR [place] DIAGNOSIS. test repeated Performed By: #### Reza Stauffer #### [facility] [address] [place] [address] Dr. Marta Ashford CARDIAC PAOLO ADMITon 022 CK [Catalytic activity/Vol] 100 U/L Normal 55-170 [facility] Comment on above: Performed By: #### Shira HESS #### [facility] [address] [place] [address] Dr. Marta Ashford CK.MB [Mass/Vol] 1.20 ng/mL Normal <=2.37 [facility] Comment on above: Performed By: #### Shira HESS #### [facility] [address] [place] [address] Dr. Marta Ashford HSTROP 51.6 pg/mL Critically high 4.0-42.2 [facility] Comment on above: Result Comment: CUT- OFF POINTS HAVE BEEN ESTABLISHED BASED ON THE FOURTH UNIVERSAL DEFINITIONS OF MYOCARDIAL INFARCTION. THE UPPER REFERENCE LIMIT (URL) OF TROPONIN, DEFINED THE 99TH PERCENTILE OF cTnI DISTRIBUTION IN A REFERENCE POPULATION, HAS BEEN CONFIRMED THE DECISION THRESHOLD FOR [place] DIAGNOSIS. Performed By: #### Shira HESS #### [facility] [address] [place] [address] Dr. Marta Ashford ANGELICA 77.0 ng/mL Normal <=121.0 [facility] Comment on above: Performed By: #### Shira HESS #### [facility] [address] [place] [address] Dr. Marta Ashford CBC AUTO DIFFon 08-16-2021 BASO # 0.0 103/ul Normal 0.0-0.1 [facility] Comment on above: Performed By: #### Reza 1C #### [facility] [address] [place] [address] Dr. Marta Ashford Basophils/100 WBC (Bld) 0.2 % Normal 0.2-2.0 [facility] Comment on above: Performed By: #### Reza Stauffer #### [facility] [address] [place] [address] Dr. Marta Ashford EO # 0.0 103/ul Normal 0.0-0.7 [facility] Comment on above: Performed By: #### A 1C #### [facility] [address] [place] [address] Dr. Marta Ashford Eosinophils/100 WBC (Bld) 0.2 % Critically low 0.9-7.0 [facility] Comment on above: Performed By: #### A 1C #### [facility] [address] [place] [address] Dr. Marta Ashford Erythrocyte distribution width (RBC) [Ratio] 12.8 % Normal 11.0-15.0 [facility] Comment on above: Performed By: #### A 1C #### [facility] [address] [place] [address] Dr. Marta Ashford Hematocrit (Bld) [Volume fraction] 38.4 % Critically low 42.0-54.0 [facility] Comment on above: Performed By: #### A 1C #### [facility] [address] [place] [address] Dr. Marta Ashford Hemoglobin (Bld) [Mass/Vol] 12.7 g/dL Critically low 14.0-18.0 [facility] Comment on above: Performed By: #### A 1C #### [facility] [address] [place] [address] Dr. Marta Ashford IG # 0.03 10e3/ul Normal 0.00-0.03 [facility] Comment on above: Performed By: #### A 1C #### [facility] [address] [place] [address] Dr. Marta Ashford IG % 0.6 % Critically high 0.0-0.5 [facility] Comment on above: Performed By: #### A 1C #### [facility] [address] [place] [address] Dr. Marta Ashford LYMPH # 0.5 103/ul Critically low 1.2-3.8 [facility] Comment on above: Performed By: #### A 1C #### [facility] [address] [place] [address] Dr. Marta Ashford Lymphocytes/100 WBC (Bld) 11.1 % Critically low 20.5-60.0 [facility] Comment on above: Result Comment: dif. not rqd. same as 08/16/21 Performed By: #### A 1C #### [facility] [address] [place] [address] Dr. Marta Ashford MANUAL DIFF REQ NO Normal [facility] Comment on above: Performed By: #### A 1C #### [facility] [address] [place] [address] Dr. Marta Ashford MCH (RBC) [Entitic mass] 31.1 pg Normal 25.9-34.0 [facility] Comment on above: Performed By: #### A 1C #### [facility] [address] [place] [address] Dr. Marta Ashford MCHC (RBC) [Mass/Vol] 33.1 g/dL Normal 29.9-35.2 [facility] Comment on above: Performed By: #### A 1C #### [facility] [address] [place] [address] Dr. Marta Ashford MCV (RBC) [Entitic vol] 93.9 fL Normal 80.0-94.0 [facility] Comment on above: Performed By: #### A 1C #### [facility] [address] [place] [address] Dr. Marta Ashford MONO # 0.0 103/ul Critically low 0.3-0.8 [facility] Comment on above: Performed By: #### A 1C #### [facility] [address] [place] [address] Dr. Marta Ashford Monocytes/100 WBC (Bld) 0.6 % Critically low 1.7-12.0 [facility] Comment on above: Performed By: #### A 1C #### [facility] [address] [place] [address] Dr. Marta Ashford NEUT # 4.2 103/ul Normal 1.4-6.5 [facility] Comment on above: Performed By: #### A 1C #### [facility] [address] [place] [address] Dr. Marta Ashford Neutrophils/100 WBC (Bld) 87.3 % Critically high 43.0-75.0 [facility] Comment on above: Performed By: #### A 1C #### [facility] [address] [place] [address] Dr. Marta Ashford Platelet mean volume (Bld) [Entitic vol] 11.1 fL Normal 9.5-13.5 [facility] Comment on above: Performed By: #### A 1C #### [facility] [address] [place] [address] Dr. Marta Ashford PLT 114 103/ul Critically low 150-450 [facility] Comment on above: Performed By: #### A 1C #### [facility] [address] [place] [address] Dr. Marta Ashford RBC 4.09 106/ul Critically low 4.70-6.10 [facility] Comment on above: Performed By: #### A 1C #### [facility] [address] [place] [address] Dr. Marta Ashford WBC 4.8 103/ul Normal 4.0-11.0 [facility] Comment on above: Performed By: #### A 1C #### [facility] [address] [place] [address] Dr. Marta Ashford CBC W MANUAL DIFFon 08-17-19 22 ATYPICAL LYMPH # Normal [facility] Comment on above: Performed By: #### A 1C #### [facility] [address] [place] [address] Dr. Marta Ashford ATYPICAL LYMPH % Normal [facility] Comment on above: Performed By: #### A 1C #### [facility] [address] [place] [address] Dr. Marta Ashford BAND # Normal 0.0-0.3 [facility] Comment on above: Performed By: #### A 1C #### [facility] [address] [place] [address] Dr. Marta Ashford BAND % Normal 0-5 [facility] Comment on above: Performed By: #### A 1C #### [facility] [address] [place] [address] Dr. Marta Ashford BASOM # 0.00 103/ul Normal 0.00-0.10 [facility] Comment on above: Performed By: #### A 1C #### [facility] [address] [place] [address] Dr. Marta Ashford BASOM % 0.0 % Critically low 0.2-2.0 [facility] Comment on above: Performed By: #### A 1C #### [facility] [address] [place] [address] Dr. Marta Ashford BLAST # Normal [facility] Comment on above: Performed By: #### A 1C #### [facility] [address] [place] [address] Dr. Marta Ashford BLAST % Normal [facility] Comment on above: Performed By: #### A 1C #### [facility] [address] [place] [address] Dr. Marta Ashford CORRECTED WBC Normal 4.0-11.0 [facility] Comment on above: Performed By: #### A 1C #### [facility] [address] [place] [address] Dr. Marta Ashford EOS # 0.03 103/ul Normal 0.00-0.70 [facility] Comment on above: Performed By: #### A 1C #### [facility] [address] [place] [address] Dr. Marta Ashford EOS% 1.0 % Normal 0.9-7.0 [facility] Comment on above: Performed By: #### A 1C #### [facility] [address] [place] [address] Dr. Marta Ashford HCT 44.0 % Normal 42.0-54.0 [facility] Comment on above: Performed By: #### A 1C #### [facility] [address] [place] [address] Dr. Marta Ashford HGB 14.5 g/dl Normal 14.0-18.0 [facility] Comment on above: Performed By: #### A 1C #### [facility] [address] [place] [address] Dr. Marta Ashford LYMPHM # 0.90 103/ul Critically low 1.20-3.80 [facility] Comment on above: Performed By: #### A 1C #### [facility] [address] [place] [address] Dr. Marta Ashford LYMPHM% 32.0 % Normal 20.5-60.0 [facility] Comment on above: Performed By: #### A 1C #### [facility] [address] [place] [address] Dr. Marta Ashford MCH 31.2 pg Normal 25.9-34.0 [facility] Comment on above: Performed By: #### A 1C #### [facility] [address] [place] [address] Dr. Marta Ashford MCHC 33.0 g/dl Normal 29.9-35.2 [facility] Comment on above: Performed By: #### A 1C #### [facility] [address] [place] [address] Dr. Marta Ashford MCV 94.6 fL Critically high 80.0-94.0 [facility] Comment on above: Performed By: #### A 1C #### [facility] [address] [place] [address] Dr. Marta Ashford METAMYELOCYTE # Normal [facility] Comment on above: Performed By: #### A 1C #### [facility] [address] [place] [address] Dr. Marta Ashford METAMYELOCYTE % Normal [facility] Comment on above: Performed By: #### A 1C #### [facility] [address] [place] [address] Dr. Marta Ashford MONOM# 0.06 103/ul Critically low 0.30-0.80 [facility] Comment on above: Performed By: #### A 1C #### [facility] [address] [place] [address] Dr. Marta Ashford MONOM% 2.0 % Normal 1.7-12.0 [facility] Comment on above: Performed By: #### A 1C #### [facility] [address] [place] [address] Dr. Marta Ashford MPV 10.8 fL Normal 9.5-13.5 [facility] Comment on above: Performed By: #### A 1C #### [facility] [address] [place] [address] Dr. Marta Ashford MYELOCYTE # Normal [facility] Comment on above: Performed By: #### A 1C #### [facility] [address] [place] [address] Dr. Marta Ashford MYELOCYTE % Normal [facility] Comment on above: Performed By: #### A 1C #### [facility] [address] [place] [address] Dr. Marta Ashford NRBC Normal [facility] Comment on above: Performed By: #### A 1C #### [facility] [address] [place] [address] Dr. Marta Ashford PLT 129 103/ul Critically low 150-450 [facility] Comment on above: Performed By: #### A 1C #### [facility] [address] [place] [address] Dr. Marta Ashford RBC 4.65 106/ul Critically low 4.70-6.10 [facility] Comment on above: Performed By: #### A 1C #### [facility] [address] [place] [address] Dr. Marta Ashford RDW 12.9 % Normal 11.0-15.0 [facility] Comment on above: Performed By: #### A 1C #### [facility] [address] [place] [address] Dr. Marta Ashford SEG # 1.82 103/ul Normal 1.40-6.50 [facility] Comment on above: Performed By: #### A 1C #### [facility] [address] [place] [address] Dr. Marta Ashford SEG % 65.0 % Normal 43.0-75.0 [facility] Comment on above: Performed By: #### A 1C #### [facility] [address] [place] [address] [address] [address] Marta Ashford WBC 2.8 103/ul Critically low 4.0-11.0 [facility] Comment on above: Performed By: #### A 1C #### [facility] [address] [place], [place] [address] ABD/PELVIS WO CONon [...] ROVERTO GREENFIELD Date: 2021-08-16 05:21 Normal [facility] CULTURE BLOODon 08-16-2021 Microscopic examination of blood, culture Culture Observations: No growth at 5 days. Normal [facility] Comment on above: Performed By: #### B LDCX2 #### [facility] [address] [place], [place] [address] Dr. Marta Ashford Microscopic examination of blood, culture Culture Observations: No growth at 5 days. Normal [facility] Comment on above: Performed By: #### A 1C #### [facility] [address] [place], [place] [address] Dr. Marta Ashford Covid-19 PCR ([facility])on SARS-CoV-2 (COVID-19) RNA NORMA+probe Ql (Unsp spec) Not detected Normal NOT DETECTED [facility] Comment on above: Result Comment: When diagnostic testing is negative, the possibility of a false negative should be considered in the context of a patient's recent exposures and the presence of clinical signs and symptoms consistent with SARS-CoV-2. This test is not yet approved or cleared by the [place] Food and Drug Administration (FDA). This test was developed by [employer], [place], [place]. The performance characteristics of this test were validated by [facility]. The results are not intended to be used as the sole means for clinical diagnosis or patient management decisions. [facility] is authorized under Clinical Laboratory Improvement [...] for this test is supported by the [employer] and Human Service's declaration that [...] used). Performed By: #### A 1C #### [facility] [address] [place], [place] [address] Dr. Marta Ashford DRUG SCREEN RAPID (URINE)on 08-16-2021 AMP Negative Normal NEGATIVE [facility] Comment on above: Performed By: #### P HVEN #### [facility] [address] [place] [address] [address] Marta Ashford BAR Negative Normal NEGATIVE [facility] Comment on above: Performed By: #### P HVEN #### [facility] [address] [place] [address] [address] Marta Ashford BUP Negative Normal NEGATIVE [facility] Comment on above: Performed By: #### P HVEN #### [facility] [address] [place] [address] [address] Marta Ashford BZO Negative Normal NEGATIVE [facility] Comment on above: Performed By: #### P HVEN #### [facility] [address] [place] [address] Dr. Marta Ashford ROME Negative Normal NEGATIVE [facility] Comment on above: Performed By: #### P HVEN #### [facility] [address] [place] [address] Dr. Marta Ashford CUT-OFFS SEE BELOW Normal [facility] Comment on above: Result Comment: AMP [...] ng/mL Performed By: #### P HVEN #### [facility] [address] [place] [address] Dr. Marta Ashford DRUG CUT HEADER DRUG CLASS TEST SYST EM CUT-OFF CONCENTRATIONS ARE FOLLOWS: Normal [facility] Comment on above: Performed By: #### P HVEN #### [facility] [address] [place] [address] Dr. Marta Ashford mAMP Negative Normal NEGATIVE [facility] Comment on above: Performed By: #### P HVEN #### [facility] [address] [place] [address] [address] Marta Ashford MTD Negative Normal NEGATIVE [facility] Comment on above: Performed By: #### P HVEN #### [facility] [address] [place] [address] [address] Marta Ashford OPI Negative Normal NEGATIVE [facility] Comment on above: Performed By: #### P HVEN #### [facility] [address] [place] [address] Dr. Marta Ashford OXY Negative Normal NEGATIVE [facility] Comment on above: Performed By: #### P HVEN #### [facility] [address] [place] [address] Dr. Marta Ashford PCP Negative Normal NEGATIVE [facility] Comment on above: Performed By: #### P HVEN #### [facility] [address] [place] [address] Dr. Marta Ashford PPX Negative Normal NEGATIVE [facility] Comment on above: Performed By: #### P HVEN #### [facility] [address] [place] [address] Dr. Marta Ashford TCA Negative Normal NEGATIVE [facility] Comment on above: Performed By: #### P HVEN #### [facility] [address] [place] [address] Dr. Marta Ashford THC Negative Normal NEGATIVE [facility] Comment on above: Performed By: #### P HVEN #### [facility] [address] [place] [address] Dr. Marta Ashford ER URINE PROFILEon 2 Bilirubin Ql (U) Negative Normal NEGATIVE [facility] Comment on above: Performed By: #### A 1C #### [facility] [address] [place] [address] Dr. Marta Ashford Clarity (U) SL CLOUDY Abnormal CLEAR [facility] Comment on above: Performed By: #### A 1C #### [facility] [address] [place] [address] Dr. Marta Ashford Color (U) YELLOW Normal YELLOW [facility] Comment on above: Performed By: #### A 1C #### [facility] [address] [place] [address] Dr. Marta DUDLEY A micrscopic examina tion will be performed if indicated. Normal [facility] Comment on above: Performed By: #### A 1C #### [facility] [facility] [address] [place] [address] Dr. Marta Ashford Glucose Ql (U) 1000 mg/dl Abnormal NEGATIVE [facility] Comment on above: Performed By: #### A 1C #### [facility] [address] [place] [address] Dr. Marta Ashford Hemoglobin Ql (U) SMALL Abnormal NEGATIVE [facility] Comment on above: Performed By: #### A 1C #### [facility] [address] [place] [address] Dr. Marta Ashford Ketones Ql (U) Negative Normal NEGATIVE [facility] Comment on above: Performed By: #### A 1C #### [facility] [address] [place] [address] Dr. Marta Ashford LEUKOCYTES SMALL Abnormal NEGATIVE [facility] Comment on above: Performed By: #### A 1C #### [facility] [address] [place] [address] Dr. Marta Ashford Nitrite Ql (U) Positive Abnormal NEGATIVE [facility] Comment on above: Performed By: #### A 1C #### [facility] [address] [place] [address] Dr. Marta Ashford pH (U) 5.5 [pH] Normal 5-9 [facility] Comment on above: Performed By: #### A 1C #### [facility] [address] [place] [address] Dr. Marta Ashford SPEC GRAVITY 1.020 Normal 1.005-<=1. 025 [facility] Comment on above: Performed By: #### A 1C #### [facility] [address] [place] [address] Dr. Marta Ashford UA PROTEIN TRACE Normal NEGATIVE/ TRACE [facility] Comment on above: Performed By: #### A 1C #### [facility] [address] [place] [address] Dr. Marta Ashford UR MICRO IND INDICATED Normal [facility] Comment on above: Performed By: #### A 1C #### [facility] [address] [place] [address] Dr. Marta Ashford Urobilinogen Qn (U) 0.2 {Brad'U}/dL Normal 0.2 - 1. 0 [facility] Comment on above: Performed By: #### A 1C #### [facility] [address] [place] [address] Dr. Marta Ashford LACTATE/LACTIC ACIDon 2021 Lactate [Moles/Vol] 4.1 mmol/L Critically high 0.7-2.0 [facility] Comment on above: Result Comment: test repeated Performed By: #### L ACT #### [facility] [address] [place] [address] Dr. Marta Ashford Lactate [Moles/Vol] 4.1 mmol/L Critically high 0.7-2.0 [facility] Comment on above: Result Comment: test repeated Performed By: #### L ACT #### [facility] [address] [place] [address] Dr. Marta Ashford OCC BLD IMMUNOASSAYon 2021 OCCULT BLOOD Negative Normal NEGATIVE [facility] Comment on above: Performed By: #### A 1C #### [facility] [address] [place] [address] Dr. Marta Ashford PH VENOUS BLOODon 08-16-2021 PCO2 VENOUS 30.8 mmHg Critically low 40.0-52.0 [facility] Comment on above: Performed By: #### P HVEN #### [facility] [address] [place] [address] Dr. Marta Ashford pH VENOUS 7.400 Normal 7.330-7.43 0 [facility] Comment on above: Performed By: #### P HVEN #### [facility] [address] [place] [address] Dr. Marta Ashford POINT OF CARE GLUCOSEon Glucose [Mass/Vol] 214 mg/dL Critically high -106 [facility] Comment on above: Performed By: #### C BCMAN #### [facility] [address] [place] [address] [address] Marta Ashford Glucose [Mass/Vol] 275 mg/dL Critically high -106 [facility] Comment on above: Performed By: #### P HVEN #### [facility] [address] [address] [address] Marta Ashford Glucose [Mass/Vol] 366 mg/dL Critically high 74-106 [facility] Comment on above: Performed By: #### A 1C #### [facility] [address] [place] [address] Dr. Marta Ashford Glucose [Mass/Vol] 168 mg/dL Critically high [facility] Comment on above: Performed By: #### P OCGLUC #### [facility] [address] [place] [address] Dr. Marta Ashford Glucose [Mass/Vol] 214 mg/dL Critically high -106 [facility] Comment on above: Performed By: #### A 1C #### [facility] [address] [place] [address] Dr. Marta Ashford PROF CHEM 8 (BAS METB)on Anion gap [Moles/Vol] 17.4 mmol/L Normal [facility] Comment on above: Performed By: #### P HVEN #### [facility] [address] [place] [address] Dr. Marta Ashford Calcium [Mass/Vol] 7.3 mg/dL Critically low 8.5-10.1 [facility] Comment on above: Performed By: #### P HVEN #### [facility] [address] [place] [address] Dr. Marta Ashford Chloride [Moles/Vol] 108 mmol/L Critically high 98-107 [facility] Comment on above: Performed By: #### P HVEN #### [facility] [address] [place] [address] Dr. Marta Ashford CO2 [Moles/Vol] 20.7 mmol/L Critically low 22.0-30.0 [facility] Comment on above: Performed By: #### P HVEN #### [facility] [address] [address] [address] Marta Ashford Creatinine [Mass/Vol] 1.32 mg/dL Critically high 0.66-1.25 [facility] Comment on above: Performed By: #### P HVEN #### [facility] [address] [address] [address] Marta Ashford EGFR-AF CHINESE >60 Normal >=60 [facility] Comment on above: Performed By: #### P HVEN #### [facility] [address] [address] [address] Marta Ashford EGFR-NON AF CHINESE 56 mL/min/1.73m2 Critically low >=60 [facility] Comment on above: Performed By: #### P HVEN #### [facility] [address] [address] [address] Marta Ashford Glucose [Mass/Vol] 189 mg/dL Critically high 74-106 [facility] Comment on above: Performed By: #### P HVEN #### [facility] [address] [address] [address] Marta Ashford Potassium [Moles/Vol] 3.1 mmol/L Critically low 3.4-5.0 [facility] Comment on above: Performed By: #### P HVEN #### [facility] [address] [address] [address] Marta Ashford Sodium [Moles/Vol] 143 mmol/L Normal 137-145 [facility] Comment on above: Performed By: #### P HVEN #### [facility] [address] [address] [address] Marta Ashford Urea nitrogen [Mass/Vol] 25.0 mg/dL Critically high 7.0-18.0 [facility] Comment on above: Performed By: #### P HVEN #### [facility] [address] [address] [address] Marta Ashford Urea nitrogen/Creatinine [Mass ratio] 18.9 mg/mg Normal [facility] Comment on above: Performed By: #### P HVEN #### [facility] [address] [place] [address] Dr. Marta Ashford Anion gap [Moles/Vol] 17.1 mmol/L Normal [facility] Comment on above: Performed By: #### C BCMAN #### [facility] [address] [place] [address] Dr. Marta Ashford Calcium [Mass/Vol] 8.2 mg/dL Critically low 8.5-10.1 [facility] Comment on above: Performed By: #### C BCMAN #### [facility] [address] [place] [address] Dr. Marta Ashford Chloride [Moles/Vol] 104 mmol/L Normal 98-107 [facility] Comment on above: Performed By: #### C BCMAN #### [facility] [address] [place] [address] Dr. Marta Ashford CO2 [Moles/Vol] 23.4 mmol/L Normal 22.0-30.0 [facility] Comment on above: Performed By: #### C BCVALERY #### [facility] [address] [place] [address] Dr. Marta Ashford Creatinine [Mass/Vol] 1.17 mg/dL Normal 0.66-1.25 [facility] Comment on above: Performed By: #### C BCVALERY #### [facility] [address] [place] [address] Dr. Marta Ashford EGFR-AF CHINESE >60 Normal >=60 [facility] Comment on above: Performed By: #### C BCMAN #### [facility] [address] [place] [address] Dr. Marta Ashford EGFR-NON AF CHINESE >60 Normal >=60 [facility] Comment on above: Performed By: #### C BCMAN #### [facility] [address] [place] [address] Dr. Marta Ashford Glucose [Mass/Vol] 215 mg/dL Critically high 74-106 [facility] Comment on above: Performed By: #### C JIMENA #### [facility] [address] [place] [address] Dr. Marta Ashford Potassium [Moles/Vol] 3.5 mmol/L Normal 3.4-5.0 [facility] Comment on above: Performed By: #### C JIMENA #### [facility] [address] [place] [address] Dr. Marta Ashford Sodium [Moles/Vol] 141 mmol/L Normal 137-145 [facility] Comment on above: Performed By: #### C JIMENA #### [facility] [address] [place] [address] Dr. Marta Ashford Urea nitrogen [Mass/Vol] 23.0 mg/dL Critically high 7.0-18.0 [facility] Comment on above: Performed By: #### C JIMENA #### [facility] [address] [place] [address] Dr. Marta Ashford Urea nitrogen/Creatinine [Mass ratio] 19.7 mg/mg Normal [facility] Comment on above: Performed By: #### C JIMENA #### [facility] [address] [place] [address] Dr. Marta Ashford URINE MICROSCOPIC ONLYon BACTERIA MODERATE Abnormal NONE SEEN [facility] Comment on above: Performed By: #### A 1C #### [facility] [address] [place] [address] Dr. Marta Ashford Bacteria identified Cx Nom (U) INDICATED Normal [facility] Comment on above: Performed By: #### A 1C #### [facility] [address] [place] [address] Dr. Marta Ashford CAST NONE SEEN Normal NONE SEEN [facility] Comment on above: Performed By: #### A 1C #### [facility] [address] [place] [address] Dr. Marta Ashford Crystals LM Nom (Urine sed) NONE SEEN Normal NONE SEEN [facility] Comment on above: Performed By: #### A 1C #### [facility] [address] [place] [address] Dr. Marta Ashford Epithelial cells LM Ql (Urine sed) NONE SEEN Normal NONE SEEN /RARE [facility] Comment on above: Performed By: #### A 1C #### [facility] [address] [place] [address] Dr. Marta Ashford MUCOUS NONE SEEN Normal NONE SEEN [facility] Comment on above: Performed By: #### A 1C #### [facility] [address] [place] [address] Dr. Marta Ashford RBC 0-2 Normal 0-2 [facility] Comment on above: Performed By: #### A 1C #### [facility] [address] [place] [address] Dr. Marta Ashford WBC 10-20 Abnormal NONE SEEN [facility] Comment on above: Performed By: #### A 1C #### [facility] [address] [place] [address] Dr. Marta Ashford XR CHEST 2 Von [...] KIZZY SINHA Date: 2021-08-16 03:11 Normal [facility] Vital Signs Date Time Vital Sign Value Performing Clinician Facility 05-24-2024 13:13-050 Body height 162.56 cm [facility] 05-24-2024 13:050 Body mass index (BMI) [Ratio] 37.8 kg/m2 [facility] 05-24-2024 13:050 Body weight 99.79 kg [facility] 03-08-2024 15:030400 Body height 162.6 cm Markos Arellano MD Work Phone: [facility] 03-08-2024 15:03-0400 Body mass index (BMI) [Ratio] 37.76 kg/m2 Markos Arellano MD Work Phone: [facility] 03-08-2024 15:03-0400 Body temperature 97.5 [degF] Markos Arellano MD Work Phone: [facility] 03-08-2024 15:03-0400 Body weight 99.79 kg Markos Arellano MD Work Phone: [facility] 03-08-2024 15:03-0400 Diastolic blood pressure 66 mm[Hg] Markos Arellano MD Work Phone: [facility] 03-08-2024 15:03-0400 Heart rate 96 /min Markos Arellano MD Work Phone: [facility] 03-08-2024 15:03-0400 Respiratory rate 20 /min Markos Arellano MD Work Phone: [facility] 03-08-2024 15:03-0400 SaO2% (BldA) [Mass fraction] 97 % Markos Arellano MD Work Phone: [facility] 03-08-2024 15:03-0400 Systolic blood pressure 124 mm[Hg] Markos Arellano MD Work Phone: [facility] 02-19-2024 09:55-0400 Body height 162.6 cm Markos Arellano MD Work Phone: [facility] 02-19-2024 09:55-0400 Body mass index (BMI) [Ratio] 38.45 kg/m2 Markos Arellano MD Work Phone: [facility] 02-19-2024 09:55-0400 Body temperature 97.5 [degF] Markos Arellano MD Work Phone: [facility] 02-19-2024 09:55-0400 Body weight 101.61 kg Markos Arellano MD Work Phone: [facility] 02-19-2024 09:55-0400 Diastolic blood pressure 86 mm[Hg] Markos Arellano MD Work Phone: [facility] 02-19-2024 09:55-0400 Heart rate 75 /min Markos Arellano MD Work Phone: [facility] 02-19-2024 09:55-0400 Respiratory rate 20 /min Markos Arellano MD Work Phone: [facility] 02-19-2024 09:55-0400 SaO2% (BldA) [Mass fraction] 93 % Markos Arellano MD Work Phone: [facility] 02-19-2024 09:55-0400 Systolic blood pressure 150 mm[Hg] Markos Arellano MD Work Phone: [facility] 01-22-2024 10:09-0400 Body height 162.6 cm Markos Arellano MD Work Phone: [facility] 01-22-2024 10:09-0400 Body mass index (BMI) [Ratio] 37.93 kg/m2 Markos Arellano MD Work Phone: [facility] 01-22-2024 10:09-0400 Body temperature 97.11 [degF] Markos Arellano MD Work Phone: [facility] 01-22-2024 10:09-0400 Body weight 100.25 kg Markos Arellano MD Work Phone: [facility] 01-22-2024 10:09-0400 Diastolic blood pressure 82 mm[Hg] Markos Arellano MD Work Phone: [facility] 01-22-2024 10:09-0400 Heart rate 91 /min Markos Arellano MD Work Phone: [facility] 01-22-2024 10:09-0400 Respiratory rate 18 /min Markos Arellano MD Work Phone: [facility] 01-22-2024 10:09-0400 SaO2% (BldA) [Mass fraction] 97 % Markos Arellano MD Work Phone: [facility] 01-22-2024 10:09-0400 Systolic blood pressure 150 mm[Hg] Markos Arellano MD Work Phone: [facility] 06-11-2021 16:00-0500 Body height 162.56 cm Girma Tan Other [facility] Other 06-11-2021 16:00-0500 Body mass index (BMI) [Ratio] 39.75 kg/m2 Girma Tan Other [facility] Other 06-11-2021 16:00-0500 Body weight 105.05 kg Girma Tan Other [facility] Other 06-11-2021 16:00-0500 Diastolic blood pressure 89 mm[Hg] Girma Tan Other [facility] Other 06-11-2021 16:00-0500 Respiratory rate 18 /min Girma Tan Other [facility] Other 06-11-2021 16:00-0500 SaO2% (BldA) [Mass fraction] 99 % Girma Tan Other [facility] Other 06-11-2021 16:00-0500 Systolic blood pressure 158 mm[Hg] Girma Tan Other [facility] Other 03-07-2021 15:30-0400 Body height 162.56 cm Oskar Johnson Other [facility] Other 03-07-2021 15:30-0400 Body mass index (BMI) [Ratio] 39.48 kg/m2 Oskar Johnson Other [facility] Other 03-07-2021 15:30-0400 Body weight 104.33 kg Oskar Johnson Other [facility] [employer] Other Encounters Encounter Date Encounter Type Care Provider Facility Start: 06-09-2024 End: 06-09-2024 Patient encounter procedure Markos Arellano MD Work Phone: [facility] Work Phone: Start: 06-09-2024 End: 06-09-2024 ambulatory Markos Arellano MD Work Phone: [facility] Work Phone: Start: 05-24-2024 End: 05-24-2024 ambulatory Markos Arellano MD Work Phone: [facility] Work Phone: Start: 05-24-2024 End: 05-24-2024 Patient encounter procedure [facility] Phys[facility] Work Phone: Start: 03-15-2024 End: 03-15-2024 Clinisync Result Encounter Juliana Aicbentonz FRAUD ANALYST Work Phone: [facility] Unsolicited Start: 03-15-2024 End: 03-15-2024 Clinisync Result Encounter Juliana Aichholz FRAUD ANALYST Work Phone: [facility] Unsolicited Start: 03-15-2024 End: 03-15-2024 Orders Only Juliana Aichholz FRAUD ANALYST Work Phone: [facility] Comment on above: Non-alcoholic fatty liver disease (Primary Dx); Right upper quadrant abdominal pain Start: 03-08-2024 End: 03-08-2024 ambulatory MARKOS ARELLANO Not Available Start: 03-08-2024 End: 03-08-2024 Office outpatient visit 25 minutes Markos Arellano MD Work Phone: [facility] Comment on above: Type 2 diabetes ghassan [...] 02-19-2024 ambulatory MARKOS ARELLANO Not Available Start: 02-05-2024 End: 02-05-2024 Orders Only Markos Arellano MD Work Phone: [facility] Comment on above: Right upper quadrant abdominal pain (Primary Dx) Start: 01-22-2024 End: 01-22-2024 Bamboo flowsheet Markos Arellano MD Work Phone: [facility] Start: 01-22-2024 End: 01-22-2024 Bamboo flowsheet Markos Arellano MD Work Phone: [facility] Start: 01-22-2024 End: 01-22-2024 ambulatory MARKOS ARELLANO Not Available Start: 01-22-2024 End: 01-22-2024 Office outpatient visit 25 minutes Markos Arellano MD Work Phone: [facility] Comment on above: Acute right-sided lo w back pain without sciatica (Primary Dx); Right upper quadrant abdominal pain; Type 2 diabetes mellitus with hyperglycemia, without long-term current use of insulin ([facility]); Immunodeficiency due to conditions classified elsewhere ([facility]) Start: 01-14-2024 End: 01-14-2024 Refill Markos Arellano MD Work Phone: [facility] Comment on above: Type 2 diabetes ghassan itus with hyperglycemia, without long-term current use of insulin ([facility]) (Primary Dx) Start: 12-11-2023 End: 12-11-2023 ambulatory MARKOS ARELLANO Not Available Start: 07-01-2023 End: 07-01-2023 ambulatory MARKOS ARELLANO Not Available Start: 08-01-2022 End: 08-02-[address] MARKOS ARELLANO Facility:[facility] Start: 03-13-2022 End: 03-14-[address] MARKOS ARELLANO Facility:[facility] Start: 09-12-2021 Encounter for genera l adult medical examination without abnormal findings DR MARKOS ARELLANO [facility] Start: 09-10-2021 End: 09-11-[address] MARKOS ARELLANO Facility:[facility] Start: 09-10-2021 End: 09-11-2021 Encounter for general adult medical examination without abnormal findings DR MARKOS ARELLANO Facility:[facility] Start: 08-16-2021 End: 08-18-2021 Evaluation and management of inpatient DR ANNA THACKER Facility:[facility] Start: 07-02-2021 End: 07-02-2021 ambulatory Girma Tan Other [facility] Other Start: 07-02-2021 Telephone encounter Girma Chang [facility] Start: 06-24-2021 End: 06-24-2021 ambulatory Girma Tan Other [facility] Other Start: 06-24-2021 Telephone encounter Girma Chang [employer] Start: 06-11-2021 End: 06-11-2021 ambulatory Girma Tan Other [facility] Other Start: 06-11-2021 Nutrition therapy Girma Garcia [facility] Start: 03-18-2021 End: 03-18-2021 ambulatory Stacie Muro Other [facility] Other Start: 03-18-2021 Telephone encounter Stacie Muro [facility] Start: 03-07-2021 Office outpatient visit 25 minutes Oskar Johnson [facility] Gastroenter[facility] Procedures Date Procedure Procedure Detail Performing Clinician Start: 06-09-2024 Ultrasound elastogra phy of liver Markos Arellano MD Work Phone: Start: 03-15-2024 [facility] CREAT[facility] Juliana Aic hholz FRAUD ANALYST Work Phone: Start: 09-10-[address] MARKOS MCINTOSH Comment on above: Performed By: #### C [facility] #### [facility] [address] [place] [address] Dr. Marta Ashford Start: 01-28-2021 Colonoscopy Markos gómez MD Work Phone: Plan of Treatment Date Care Activity Detail Author Start: 01-28-2031 Screening for malign ant neoplasm of colon [facility] Start: 10-01-2025 Glaucoma screening Diabetes: R etinopathy Screening [facility] Start: 12-24-2024 Urine screening for protein Diabetes: Urine Protein Screening [facility] Start: 06-26-2024 Hemoglobin A1c measurement Diabetes: Hemoglobin A1C [facility] Start: 05-27-2024 End: 05-27-2024 Patient encounter procedure 05/27/2024 9:00 AM EST Office Visit [facility] [address] [place] [id number] Markos Arellano MD [address] [place] [id number] [facility] Start: 05-24-2024 Actin smooth muscle IgG Ab [Units/volume] in Serum [facility] Start: 05-24-2024 Ceruloplasmin [Mass/volume] in Serum or Plasma [facility] Start: 05-24-2024 Hepatitis A virus Ab [Presence] in Serum by Immunoassay [facility] Start: 05-24-2024 Hepatitis A virus antibody, IgM type [facility] Start: 05-24-2024 Hepatitis B core ant ibody measurement [facility] Start: 05-24-2024 Hepatitis B core ant ibody measurement, IgM type [facility] Start: 05-24-2024 Hepatitis B virus osuna rface Ab [Presence] in Serum [facility] Start: 05-24-2024 IgG [Mass/volume] in Serum or Plasma [facility] Start: 05-24-2024 Lipoprotein a [Moles/volume] in Serum or Plasma [facility] Start: 05-24-2024 Mitochondria M2 IgG Ab [Units/volume] in Serum [facility] Start: 05-24-2024 [facility] Start: 03-15-2024 End: 03-15-2025 Creatinine [Mass/volume] in Serum or Plasma Creatinine Lab Routine Non-alcoholic fatty liver disease Right upper quadrant abdominal pain Expected: 03/15/2024 (Approximate), Expires: 03/15/2025 [facility] Work Phone: Comment on above: Expected: 03/15/2024 (Approximate), Expires: 03/15/2025 Start: 03-08-2024 End: 03-08-2025 CT Abdomen and Pelvis WO and W contrast IV CT abdomen pelvis w and wo IV contrast Imaging Routine Right upper quadrant abdominal pain Non-alcoholic fatty liver disease Expected: 03/08/2024, Expires: 03/08/2025 [facility] Work Phone: Comment on above: Expected: 03/08/2024 , Expires: 03/08/2025 Start: 02-19-2024 End: 02-19-[address] [facility] Comment on above: Arrived Start: 02-05-2024 End: 02-04-2025 NM Gallbladder Views W cholecystokinin and W radionuclide IV NM hepatobiliary w cholecystokinin Imaging Routine Right upper quadrant abdominal pain Expected: 02/05/2024, Expires: 02/04/2025 [facility] Work Phone: Comment on above: Expected: 02/05/2024 , Expires: 02/04/2025 Start: 01-22-2024 End: 01-21-2025 US Abdomen limited US RUQ Imaging Routine Right upper quadrant abdominal pain Expected: 01/22/2024, Expires: 01/21/2025 [facility] Work Phone: Comment on above: Expected: 01/22/2024 , Expires: 01/21/2025 Start: 01-10-2024 Influenza vaccination Influenza Vacc ine (#1) [facility] Start: 1981 Urine screening for protein Diabetes: Urine Protein Screening [facility] Start: 1960 Hemoglobin A1c measurement Diabetes: Hemoglobin A1C [facility] Start: 1960 Screening for malign ant neoplasm of colon [facility] Alpha 1 antitrypsin [Mass/volume] in Serum or Plasma [facility] Alpha 1 antitrypsin phenotyping [Identifier] in Serum or Plasma by Immunofixation [facility] Hepatic function panel [facility] Hepatitis B virus osuna rface Ag [Presence] in Serum or Plasma by Immunoassay [facility] Hepatitis C virus Ig G Ab [Presence] in Serum or Plasma by Immunoassay [facility] HFE gene mutations f ound [Identifier] in Blood or Tissue by Molecular genetics method Nominal [facility] Homogenous nuclear A b pattern [Titer] in Serum [facility] Nuclear Ab [Titer] i n Serum [facility] Immunizations Immunization Date Immunization Notes Care Provider Fa cility 02-18-2023 influenza virus vacc ine, unspecified formulation Markos Arellano MD Work Phone: [facility] Healthcare Payers Date Payer Category Payer Self-pay 2021 Private Health Insurance [id number] 1962 Unknown [id number] 2.16.84 [id number] 1962 Unknown [id number] 2.16.84 [id number] 1962 Unknown [id number] 2.16.84 [id number] 1962 Unknown [id number] 2.16.84 0.1.125946.3.579.2.593 1962 Unknown [id number] 2.16.84 0.1.913670.3.579.2.1259 1962 Unknown [id number] 2.16.84 0.1.427196.3.579.2.1259 1962 Unknown [id number] 2.16.84 0.1.065086.3.579.2.1259 1962 Unknown [id number] 2.16.84 0.1.950545.3.579.2.1259 1962 Unknown [id number] 2.16.84 0.1.072157.3.579.2.1259 1959 Unknown [id number] 2.16.8 [id number] Unknown [id number] 2.16.8 40.1.435265.3.579.2.531 Unknown [id number] 2.16.8 [id number] Social History Date Type Detail Facility Start: 01-22-2024 End: 02-19-2024 Sex Assigned At [facility] [employer] Other Start: 01-28-2021 End: 07-01-2023 Tobacco smoking status VTIS Never smoked tobacco [facility] Start: 07-01-2023 Tobacco use and exposure Smokeless tobacco non-user [facility] Start: 01-22-2024 End: 02-19-[address] [facility] Start: 1960 Sex assigned at Not on file N [facility] Start: 05-24-2024 End: 06-09-2024 Sex Male (finding) [facility] Start: 1960 Sex Assigned At Male F [facility] Medical Equipment Procedure Code Equipment Code Equipment Origin al Text Equipment Identifier Dates 1 each by Other route if needed (1x daily) Use as instructed [id number] Start: 04-30-2023 Goals Date Patient Goal Desired Activity /State Clinical Notes 03-07-2021 to 05-24-2024 Note Date & Type Note Facility 05-24-2024 Evaluation note Authored May 24, 2024 1:41pm 64-year-old man referred to the liver clinic for evaluation of hepatic steatosis and elevated liver enzymes. Patient drinks 8 drinks a week Will get laboratory work up for infectious, autoimmune and metabolic etiologies of liver diseases. Patient has obesity, HTN, DM which are risk factors associated with MASLD. Pt was counseled about weight loss(10%) mediterranean diet and exercise ( >45 minutes X5 per week). Will arrange for fibroscan Will check HBV and HAV serologies to determine the need for vaccinations [facility] Work Phone: [phone] 952-643511-05-2024 History of Present illness Narrative* Juliana Morales NP - 03/15/2024 8:13 AM EST Centralized scheduling from [facility] called, needs Creatinine order for pt to get CT abd/pelvis done Has been waiting since 6:45, lab wont draw pt without an order Adan out of office, will send STAT order LA documented in this encounterMissouri Rehabilitation [id number] History of Present illness Narrative* Markos Arellano MD - 03/08/2024 3:33 PM EDTAssociated Problem(s): Type 2 diabetes mellitus with hyperglycemia, without long-term current use of insulin (CMS/HCC) Reports BS improved and take meds daily. Stick to ADA diet and limit carbs. * Markos Arellano MD - 03/08/2024 3:33 PM EDTAssociated Problem(s): Non-alcoholic fatty liver disease Fatty liver and refer to GI. * Markos Arellano MD - 03/08/2024 3:33 PM EDTAssociated Problem(s): Essential hypertension, benign (CMS/HCC) BP controlled and monitor PRN. * Markos Arellano MD - 03/08/2024 3:33 PM EDTAssociated Problem(s): Right upper quadrant abdominal pain Continued pain and fatty liver. Tender lump palpable on exam possibly related to enlarged liver or ventral hernia. Check CT abdomen. * Markos Arellano MD - 03/08/2024 2:45 PM EDT Images from the original note were not [...] Ambulatory referral to Gastroenterology documented in this encounterMissouri Rehabilitation [id number] History of Present illness Narrative* Markos Arellano MD - 02/19/2024 10:28 AM EDTAssociated Problem(s): Right upper quadrant abdominal pain Continued pain and check HIDA. * Markos Arellano MD - 02/19/2024 10:27 AM EDTAssociated Problem(s): Type 2 diabetes mellitus with hyperglycemia, without long-term current use of insulin (CMS/HCC) Reports BS improved and take meds daily. Stick to ADA diet and limit carbs. * Markos Arellano MD - 02/19/2024 10:27 AM EDTAssociated Problem(s): Essential hypertension, benign (CMS/HCC) BP elevated today but reports controlled at home and continue to monitor PRN. * Markos Arellano MD - 02/19/2024 10:27 AM EDTAssociated Problem(s): Annual physical exam Reviewed labs. Discussed proper diet and regular aerobic exercise. Need aerobic exercise 5-6 days aweek for 30 minutes at a time. Smaller portions and limit total calories. Colonoscopy every 10 years. Tetanus every 10 years. Advised not to smoke. Discussed daily Aspirin therapy. * Markos Arellano MD - 02/19/2024 9:45 AM EDT Images from the original note were not [...] daily calories. Reviewed labs from December. BS improvingand around 180. Changed diet and cut back [...] aerobic exercise. Need aerobic exercise 5-6 days aweek for 30 minutes at a time. Smaller portions and limit total calories. Colonoscopy every 10 years. Tetanus every 10 years. Advised not to smoke. Discussed daily Aspirin therapy. documented in this encounterMissouri Rehabilitation [id number] History of Present illness Narrative* Markos Arellnao MD - 01/22/2024 10:31 AM EDTAssociated Problem(s): Type 2 diabetes mellitus with hyperglycemia, without long-term current use of insulin ([facility]) A1C over 10 and take meds daily. Stick to ADA diet and limit carbs. * Markos Arellano MD - 01/22/2024 10:30 AM EDTAssociated Problem(s): Right upper quadrant abdominal pain Pain for weeks and check US RUQ. * Markos Arellano MD - 01/22/2024 10:29 AM EDTAssociated Problem(s): Acute right- sided low back pain without sciatica Continued pain and likely muscular. Start prednisone and use relafen PRN. Handout with stretches topatient and use heat PRN. * Markos Arellano MD - 01/22/2024 10:00 AM EDT Images from the original note were not included. Subjective Patient ID: Mike Badillo is a 63 y.o. male who presents for Abdominal Pain and Back Pain. Follow up back pain and c/o abdominal pain. Seen 8/ and c/o pain in right mid lower back. Given flexeril and caused severe sedation. Pain unchanged and in back and towards spine. No radiation into gluteal or down legs. 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 Frequent tightness and spasms. Pain worse at end of day. C/o abdominal pain for weeks. Pain in RUQ and under ribs. Notice pain after eating and starts about 30 minutes after eating. No nausea or emesis. Pain feels like it's under ribs. Prior US years ago showed fatty liver. Changed diet and cut back on fats and pain improved but still present. Review of Systems Constitutional: Negative for fatigue. [...] There is no guarding or rebound. Musculoskeletal: Left lower leg: No edema. Neurological: Mental Status: He is alert. Assessment/Plan Problem List Items Addressed This Visit Type 2 diabetes mellitus with hyperglycemia, without long-term current use of insulin ([facility]) A1C over 10 and take meds daily. Stick to ADA diet and limit carbs. Acute right-sided low back pain without sciatica - Primary Continued pain and likely muscular. Start prednisone and use relafen PRN. Handout with stretches topatient and use heat PRN. Relevant Medications predniSONE (Deltasone) 50 MG tablet nabumetone (Relafen) 500 MG tablet Right upper quadrant abdominal pain Pain for weeks and check US RUQ. Relevant Orders US RUQ Other Visit Diagnoses Immunodeficiency due to conditions classified elsewhere ([facility]) documented in this encounterMissouri Rehabilitation [id number] Evaluation note* Encounter Date Diagnosis Assessment Notes Treatment Notes Treatment Clinical Notes Jun, Abnormal weight gain (ICD-10 - R63.5) Jun, Fatty liver (ICD-10 - K76.0) Jun, Type 2 diabetes mellitus with unspecified complications (ICD-10 - E11.8) Jun, Increased blood pressure (not hypertension) (ICD-10 - R03.0) Jun, Knee osteoarthritis (ICD-10 - M17.9) Jun, GERD (gastroesophageal reflux disease) (ICD-10 - K21.9) Jun, Metabolic syndrome X (ICD-10 - E88.81) [place] feita [place] Other 10-28-2021 Evaluation note* Encounter Date Diagnosis Assessment Notes Treatment Notes Treatment Clinical Notes Feb, Right upper quadrant abdominal pain (ICD-10 - R10.11) Feb, Hiatal hernia (ICD-1 0 - K44.9) Feb, Esophagitis (ICD-10 - K20.90) Feb, Diverticulosis (ICD-10 - K57.90) Feb, Hemorrhoids (ICD-10 - K64.9) Feb, Fatty liver (ICD-10 - K76.0) PATIENT IS ENCOURAGED WEIGHT LOSS WILL SEND REFERRAL TO DR. NICE Palmer [employer] Other Evaluation noteNo InformationNortLECOM [facility] [employer] Other Evaluation note* Diagnosis Annual physical exam- Primary Routine general medical examination at a health care facility Type 2 diabetes mellitus with hyperglycemia, without long-term current use of insulin ([facility]) Essential hypertension, benign ([facility]) Essential hypertension, benign Right upper quadrant abdominal pain Body mass index (BMI) 37.0-37.9, adult documented in this encounter [facility] HealthcareEvaluation note* Diagnosis Type 2 diabetes mellitus with hyperglycemia, without long-term current use of insulin ([facility])- Primary Essential hypertension, benign ([facility]) Essential hypertension, benign Gastroesophageal reflux disease without esophagitis Esophageal reflux Type 2 diabetes mellitus with hyperglycemia, without long-term current use of insulin ([facility])- Primary Essential hypertension, benign ([facility]) Essential hypertension, benign Gastroesophageal reflux disease without esophagitis Esophageal reflux Lumbar strain, initial encounter Annual physical exam Routine general medical examination at a health care facility Erectile dysfunction associated with type 2 diabetes mellitus ([facility]) Type II or unspecified type diabetes mellitus without mention of complication, not stated as uncontrolled Acute right-sided low back pain without sciatica- Primary Right upper quadrant abdominal pain Type 2 diabetes mellitus with hyperglycemia, without long-term current use of insulin ([facility]) Immunodeficiency due to conditions classified elsewhere ([facility]) Annual physical exam- Primary Routine general medical examination at a [facility] care facility Type 2 diabetes mellitus with hyperglycemia, without long-term current use of insulin (CMS/HCC) Essential hypertension, benign (CMS/HCC) Essential hypertension, benign Right upper quadrant abdominal pain Body mass index (BMI) 37.0-37.9, adult Type 2 diabetes mellitus with hyperglycemia, without long-term current use of insulin (CMS/HCC)- Primary Essential hypertension, benign (CMS/HCC) Essential hypertension, benign Right upper quadrant abdominal pain Non-alcoholic fatty liver disease Immunodeficiency due to conditions classified elsewhere (CMS/HCC) documented in this encounter [facility] HealthcareEvaluation note* Diagnosis Type 2 diabetes mellitus with hyperglycemia, without long-term current use of insulin ([facility])- Primary Essential hypertension, benign (CMS/HCC) Essential hypertension, benign Gastroesophageal reflux disease without esophagitis Esophageal reflux Type 2 diabetes mellitus with hyperglycemia, without long-term current use of insulin (CMS/HCC)- Primary Essential hypertension, benign (CMS/HCC) Essential hypertension, benign Gastroesophageal reflux disease without esophagitis Esophageal reflux Lumbar strain, initial encounter Annual physical exam Routine general medical examination at a [facility] care facility Erectile dysfunction associated with type 2 diabetes mellitus ([facility]) Type II or unspecified type diabetes mellitus without mention of complication, not stated as uncontrolled Acute right-sided low back pain without sciatica- Primary Right upper quadrant abdominal pain Type 2 diabetes mellitus with hyperglycemia, without long-term current use of insulin ([facility]) Immunodeficiency due to conditions classified elsewhere ([facility]) Annual physical exam- Primary Routine general medical examination at a [facility] care facility Type 2 diabetes mellitus with hyperglycemia, without long-term current use of insulin ([facility]) Essential hypertension, benign (CMS/HCC) Essential hypertension, benign Right upper quadrant abdominal pain Body mass index (BMI) 37.0-37.9, adult Type 2 diabetes mellitus with hyperglycemia, without long-term current use of insulin ([facility])- Primary Essential hypertension, benign (CMS/HCC) Essential hypertension, benign Right upper quadrant abdominal pain Non-alcoholic fatty liver disease Immunodeficiency due to conditions classified elsewhere (CMS/HCC) Non-alcoholic fatty liver disease- Primary Right upper quadrant abdominal pain documented in this encounter [facility] HealthcareEvaluation note* Diagnosis Acute right-sided low back pain without sciatica- Primary Right upper quadrant abdominal pain Type 2 diabetes mellitus with hyperglycemia, without long-term current use of insulin (CMS/HCC) Immunodeficiency due to conditions classified elsewhere (CMS/HCC) documented in this encounter [facility] HealthcareEvaluation note* Diagnosis Type 2 diabetes mellitus with hyperglycemia, without long-term current use of insulin (CMS/HCC)- Primary documented in this encounter [facility] HealthcareEvaluation note* Diagnosis Right upper quadrant abdominal pain- Primary documented in this encounter [facility] HealthcareEvaluation noteNo assessment information availableAultman Alliance Community Hospital Work Phone: History general Narrative - Reported* Type Description Date Medical History Arthritis Medical History SHANNON Medical History type II diabetes A vida é feita de [place] Other Reason for Referral Reason FORM -EVAL AND TREAT Diagnosis 1 Fatty liver (K76.0) Referral Organization [facility] Referring Provider First Name Oskar Referring Provider Last Name Elizabeth Referring Provider Specialty Gastroenter ology Referred Organization [facility] Referred Provider Girma Tan Jr. Referred Address [address] [place] [address],[facility],[place], [place],[address] Referred Provider Specialty Internal Med icine Referral Priority Routine General Notes Leann Manjarrez 021 02:55:03 PM > WILL SEND FORM ONCE COMPLETEDIvanDeana austin 03/07/2021 03:03:35 PM >NOTED Specialty Diagnoses / Procedures Referred By Vijaya singleton Referred To Contact Diagnoses Right upper quadrant abdominal pain Procedures NM hepatobiliary w cholecystokinin Markos Arellano MD [address] [place] [address] Referral ID Status Reason Start Date Expiration Date V isits Requested Visits Authorized [id number] Authorized 02/05/2024 08/03/2024 3 3 Summary Purpose Family History No Family History Records Found Relationship Condition Age at Onset Recorded Date/T anibal mother Diabetes mellitus Unknown Heart disease Unknown father Malignant neoplasm Unknown brother Heart disease Unknown daughter Obesity Unknown father Unknown Unknown sister Obesity Unknown Malignant neoplasm Unknown Advance Directives No Advanced Directives Records Found Advance Directive Response Recorded Date/ Time Advance Directives No January 12:18pm Chief Complaint and Reason for Visit Chief Complaint Admit Date Refer Dr Arellano: nonalcoholic fatty star er disease May 24, 2024 1:08pm Chief Complaint Admit Date Refer Dr Arellano: nonalcoholic fatty star er disease May 24, 2024 1:08pm K76.0 May 24, 2024 1 :47pm Reason for Visit Admit Date Elevated liver enzymes May 24 1:08pm Fatty liver May 24, 2024 1 :08pm Metabolic syndrome May 24, 2024 1 :08pm Chief Complaint Admit Date Refer Dr Arellano: nonalcoholic fatty star er disease May 24, 2024 1:08pm K76.0 May 24, 2024 1 :47pm fatty liver June 09, 2024 1 2:53pm Additional Source Comments REASON FOR VISIT (unrecogniz ed section and content) Reason Comments Follow-up 2m f/up wellness Reason Comments Follow-up Still having abdomin al pain Reason Comments Abdominal Pain Back Pain Reason Onset Date Comments Med Refill 01/14/2024 (unrecognized sect ion and content) No Status Records FoundNo Status Records FoundNo Status Records Found INFORMATION SOURCE (unrecogn ized section and content) DATE CREATED AUTHOR 08/04/2022 [facility] DATE CREATED AUTHOR AUTHOR'S ORGANIZ ATION 03/10/2024 [facility] EPIC DATE CREATED AUTHOR AUTHOR'S ORGANIZ ATION 06/19/2024 [facility] Care Teams (unrecognized sec tion and content) Provider Network Manager Relationship Specialty Start Date End Date Markos Arellano MD [address] [place] [address] PCP - General Family Medicine 06/08/23 Provider Network Manager Relationship Specialty Start Date End Date Markos Arellano MD [address] [place] [address] PCP - General Family Medicine 06/08/23 Provider Network Manager Relationship Specialty Start Date End Date Markos Arellano MD [address] [place] [address] PCP - General Family Medicine 06/08/23 Provider Network Manager Relationship Specialty Start Date End Date Markos Arellano MD [address] [place] [phone] PCP - General Family Medicine 06/08/23 Provider Network Manager Relationship Specialty Start Date End Date Markos Arellano MD [address] [place] [phone] PCP - General Family Medicine 06/08/23 Provider Network Manager Relationship Specialty Start Date End Date Markos Arellano MD [address] [place] [phone] PCP - General Family Medicine 06/08/23 Provider Network Manager Relationship Specialty Start Date End Date Markos Arellano MD [address] [place] [phone] PCP - General Family Medicine 06/08/23 Provider Network Manager Relationship Specialty Start Date End Date Markos Arellano MD [address] [place] [phone] PCP - General Family Medicine 06/08/23 Provider Network Manager Relationship Specialty Start Date End Date Markos Arellano MD [address] [place] [address] PCP - General Family Medicine 06/08/23 Team Status: Active Member Role Status Dates Markos Arellano MD Primary Care Provider Active Team Status: Inactive Member Role Status Dates Kianna Triplett MD Attending Provider Active Start: May 24, 2024 End: May 24, 2024 Markos Arellano MD Primary Care Provider Active S tart: May 24, 2024 End: May 24, 2024 Team Status: Inactive Member Role Status Dates Markos Arellano MD Primary Care Provider Active S tart: May 24, 2024 End: May 24, 2024 Kianna Triplett MD Attending Provider Active Start: May 24, 2024 End: May 24, 2024 Team Status: Inactive Member Role Status Dates Markos Arellano MD Primary Care Provider Active S tart: June 09, 2024 End: June 09, 2024 Kianna Triplett MD Attending Provider Active Start: June 09, 2024 End: June 09, 2024 Goals (unrecognized section and content) Goals may be documented in a n alternate section FOR RECORDS PERTAINING TO PATIENTS WHO ARE [...] BE BASED ON THE PRIMARY CLINICAL RECORDS. [employer] provides no warranty or guarantee of the accuracy or completeness of information in this document.
== END 2024-10-04 13:04 | disposition home or self-care (01) ==
PROVIDERS: Emergency Provider Emergency Medicine; PCP Family Medicine
DX: S39.012A Strain of muscle, fascia and tendon of lower back, initial encounter (principal); X50.0XXA Overexertion from strenuous movement or load, initial encounter
CPT/HCPCS: 72100; 96372; 99284; J1885

== ENCOUNTER 2024-10-07 15:06 | Emergency (ER) | payer OTHER, SELFPAY ==
[2024-10-07 15:09] VITALS: BP 160/84; PULSE 92; TEMP 36.7; O2SAT 98; BMI 37.8
--- NOTE | 2024-10-07 15:32 | ED.GENADUL1 ---
Documented by User: Chey Delcid 10/07/24 15:35 HPI HPI - General Adult General Chief complaint: Back Pain/Injury Stated complaint: back injury Time Seen by Provider: 10/07/24 15:13 Source: patient Mode of arrival: walk-in History of Present Illness HPI narrative: 64-year-old male presents to the emergency room with a chief complaint of a back injury. He was seen for this injury on 10/04/2024. At that time he was given a work note to have no heavy lifting or no lifting greater than 10 pounds. He followed up to work they have been given him sedentary work instructions. 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 He states if he drives at home or his pain will be worsened. He denies any new injury or trauma. Denies new numbness, tingling, loss of bowel or bladder function. He denies following up with occupational medicine at this point. He states he was unaware that he had to follow-up with anyone due to the Workmen's Comp. His work facility did not explain this to him as well. 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 Related Data Home Medications ?Medication ?Instructions ?Recorded ?Confirmed metformin 1,000 mg tablet 1,000 mg PO BID 10/04/24 10/07/24 semaglutide 0.25 mg or 0.5 mg (2 0.25 mg subcut QWEEK 10/04/24 10/07/24 mg/1.5 mL) subcutaneous pen injector (Ozempic) glimepiride 4 mg tablet 4 mg PO BID 10/07/24 10/07/24 lisinopril 40 mg tablet 40 mg PO DAILY 10/07/24 10/07/24 Previous Rx's ?Medication ?Instructions ?Recorded ibuprofen 800 mg tablet 800 mg PO Q8H PRN pain #20 tabs 10/04/24 methocarbamol 500 mg tablet 500 mg PO Q8H PRN pain #20 tabs 10/04/24 Allergies Allergy/AdvReac Type Severity Reaction Status Date / Time No Known Drug Allergies Allergy Verified 10/07/24 15:26 Opioid HPI Opioid Management Most Recent Opioid Data: Last Pain Scale 10 10/04/24, 11:38 Last MAR Pain Assessment 10/04/24, 11:56 Review of Systems ROS Status of ROS 10 or more systems reviewed and unremarkable except as noted in history and below PFSH PFSH Social History Little interest or pleasure in doing things: not at all Feeling down, depressed, or hopeless: not at all Exam Narrative Exam Narrative: All Systems are negative except as noted/marked.All systems reviewed and otherwise negative General: The patient appears well and in no apparent distress. Patient is resting comfortably on cart. Skin: Warm, dry, no pallor noted. There is no rash noted. Head: Normocephalic, atraumatic Eye: Normal conjunctiva, no drainage, EOMI. PERRL Ears, Nose, Mouth, and Throat: oral mucosa is moist. Nares patent. Mouth without vesicles. Ear canals patent. Tm's without Erythema Cardiovascular: Regular Rate and Rhythm Respiratory: Patient is in no distress, no accessory muscle use, lungs are clear to auscultation, no wheezing, rales or rhonchi Back: non-tender, no CVA tenderness bilaterally to percussion. Musculoskeletal: no lower extremtiy Weakness, no numbness or tingling. the patient has no evidence of calf tenderness, no pitting edema, symmetrical pulses noted bilaterally Neurological: A&O x4, normal speech Psychiatric: Cooperative Constitutional Vital Signs, click to edit/add: Last Vital Signs Temp 98.0 F 10/07/24 15:09 Pulse 92 H 10/07/24 15:09 Resp 16 10/07/24 15:09 BP 160/84 H 10/07/24 15:09 Pulse Ox 98 10/07/24 15:09 O2 Del Method Room Air 10/07/24 15:09 Course Vital Signs Vital signs: Vital Signs Temperature 98.0 F 10/07/24 15:09 Pulse Rate 92 H 10/07/24 15:09 Respiratory Rate 16 10/07/24 15:09 Blood Pressure 160/84 H 10/07/24 15:09 Pulse Oximetry 98 10/07/24 15:09 Oxygen Delivery Method Room Air 10/07/24 15:09 Temperature 98.0 F 10/07/24 15:09 Pulse Rate 92 H 10/07/24 15:09 Respiratory Rate 16 10/07/24 15:09 Blood Pressure 160/84 H 10/07/24 15:09 Pulse Oximetry 98 10/07/24 15:09 Oxygen Delivery Method Room Air 10/07/24 15:09 Medical Decision Making MDM Narrative Medical decision making narrative: Here for an extended work note as he had been injured at work on . He was lifting a garage door at work and felt a pulling sensation when he returned to work the following Thursday he states he had increased pain. He was then told to come to the emergency room was seen and evaluated on 10/04/2024. At that time he was given a work instructions. 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 Due to pain. He will be given instructions today and then told to follow-up with occupational medicine Differential Diagnosis Differential Diagnosis: , Lumbar strain, back pain Medical Records Medical records reviewed: Yes I reviewed the patient's medical records Lab Data Lab results reviewed: Yes I reviewed the patient's lab results Discharge Plan Discharge Chief Complaint: Back Pain/Injury Clinical Impression: Strain of lumbar region Patient Disposition: Home, Self-Care Time of Disposition Decision: 15:30 Condition: Good Prescriptions / Home Meds: No Action Ozempic 0.25 mg or 0.5 mg(2 mg/1.5 mL) pen injector 0.25 mg subcut QWEEK Rx Instructions: for 4 weeks metformin 1,000 mg tablet 1,000 mg PO BID methocarbamol 500 mg tablet 500 mg PO Q8H PRN (Reason: pain) Qty: 20 0RF ibuprofen 800 mg tablet 800 mg PO Q8H PRN (Reason: pain) Qty: 20 0RF glimepiride 4 mg tablet 4 mg PO BID Rx Instructions: in morning and at bedtime lisinopril 40 mg tablet 40 mg PO DAILY Print Language: Latvian Instructions: Low Back Strain (ED), P.R.I.C.E. Treatment (ED), Lower Back Exercises (ED) Additional Instructions: follow up with occupational medicine from provided list. 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 Referrals: Markos Neely MD [Primary Care Provider, Family Practice] - 1 week Discharge Date/Time: 10/07/24 15:37 Documented by User: Akin Thacker MD 10/07/24 16:34 HPI HPI - General Adult General Chief complaint: Back Pain/Injury Stated complaint: back injury Time Seen by Provider: 10/07/24 15:13 Related Data Home Medications ?Medication ?Instructions ?Recorded ?Confirmed metformin 1,000 mg tablet 1,000 mg PO BID 10/04/24 10/07/24 semaglutide 0.25 mg or 0.5 mg (2 0.25 mg subcut QWEEK 10/04/24 10/07/24 mg/1.5 mL) subcutaneous pen injector (Ozempic) glimepiride 4 mg tablet 4 mg PO BID 10/07/24 10/07/24 lisinopril 40 mg tablet 40 mg PO DAILY 10/07/24 10/07/24 Previous Rx's ?Medication ?Instructions ?Recorded ibuprofen 800 mg tablet 800 mg PO Q8H PRN pain #20 tabs 10/04/24 methocarbamol 500 mg tablet 500 mg PO Q8H PRN pain #20 tabs 10/04/24 Allergies Allergy/AdvReac Type Severity Reaction Status Date / Time No Known Drug Allergies Allergy Verified 10/07/24 15:26 Opioid HPI Opioid Management Most Recent Opioid Data: Last Pain Scale 10 10/04/24, 11:38 Last MAR Pain Assessment 10/04/24, 11:56 PFSH PFSH Social History Little interest or pleasure in doing things: not at all Feeling down, depressed, or hopeless: not at all Exam Constitutional Vital Signs, click to edit/add: Last Vital Signs Temp 98.0 F 10/07/24 15:09 Pulse 92 H 10/07/24 15:09 Resp 16 10/07/24 15:09 BP 160/84 H 10/07/24 15:09 Pulse Ox 98 10/07/24 15:09 O2 Del Method Room Air 10/07/24 15:09 Course Vital Signs Vital signs: Vital Signs Temperature 98.0 F 10/07/24 15:09 Pulse Rate 92 H 10/07/24 15:09 Respiratory Rate 16 10/07/24 15:09 Blood Pressure 160/84 H 10/07/24 15:09 Pulse Oximetry 98 10/07/24 15:09 Oxygen Delivery Method Room Air 10/07/24 15:09 Temperature 98.0 F 10/07/24 15:09 Pulse Rate 92 H 10/07/24 15:09 Respiratory Rate 16 10/07/24 15:09 Blood Pressure 160/84 H 10/07/24 15:09 Pulse Oximetry 98 10/07/24 15:09 Oxygen Delivery Method Room Air 10/07/24 15:09 Medical Decision Making MDM Narrative Medical decision making narrative: Here for an extended work note as he had been injured at work on . He was lifting a garage door at work and felt a pulling sensation when he returned to work the following Thursday he states he had increased pain. He was then told to come to the emergency room was seen and evaluated on 10/04/2024. At that time he was given a work instructions. 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 Due to pain. He will be given instructions today and then told to follow-up with occupational medicine. I, Dr Thacker, have reviewed the above progress note and course of action in the ER; agree with the above. I have personally gone over history and physical, and discussed disposition and treatment plan with the PA. Discharge Plan Discharge Chief Complaint: Back Pain/Injury Clinical Impression: Strain of lumbar region Patient Disposition: Home, Self-Care Time of Disposition Decision: 15:30 Condition: Good Prescriptions / Home Meds: No Action Ozempic 0.25 mg or 0.5 mg(2 mg/1.5 mL) pen injector 0.25 mg subcut QWEEK Rx Instructions: for 4 weeks metformin 1,000 mg tablet 1,000 mg PO BID methocarbamol 500 mg tablet 500 mg PO Q8H PRN (Reason: pain) Qty: 20 0RF ibuprofen 800 mg tablet 800 mg PO Q8H PRN (Reason: pain) Qty: 20 0RF glimepiride 4 mg tablet 4 mg PO BID Rx Instructions: in morning and at bedtime lisinopril 40 mg tablet 40 mg PO DAILY Print Language: Latvian Instructions: Low Back Strain (ED), P.R.I.C.E. Treatment (ED), Lower Back Exercises (ED) Additional Instructions: follow up with occupational medicine from provided list. 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
== END 2024-10-07 15:37 | disposition home or self-care (01) ==
PROVIDERS: Emergency Provider Emergency Medicine; PCP Family Medicine
DX: S39.012D Strain of muscle, fascia and tendon of lower back, subsequent encounter (principal); E11.8 Type 2 diabetes mellitus with unspecified complications; Z79.85 Long-term (current) use of injectable non-insulin antidiabetic drugs; Z79.84 Long term (current) use of oral hypoglycemic drugs
CPT/HCPCS: 99281

== ENCOUNTER 2025-02-10 22:45 | Inpatient (IN) | payer OTHER, SELFPAY ==
[2025-02-10] VITALS (10 sets, daily range): BP systolic 117–134; BP diastolic 66–77; PULSE 118–138; TEMP 36.8–39.6; O2SAT 94–99; BMI 33.5
--- OUTSIDE RECORDS SUMMARY | 2025-02-10 22:53 | XMS_ITS | CCD ---
Author Organization [facility] Care Team Providers Care Weighter Name Role Phone Oskar Johnson Unavailable Stacie [...] Unavailable NADERER, DR MARKOS Cobb Consulting Unavailable DE PERE, DR CASTILLO Primary Care Unavailable YOLI ., DR CASTILLO Consulting Unavailable NADERER, DR MARKOS Cobb Admitting Unavailable NADERER, DR MARKOS Cobb Attending Unavailable NADERER, DR MARKOS Cobb Consulting Unavailable STEPHANIE, MISBAH Consulting Unavailable FAMASHA, SHAIKH Isaac Consulting Unavailable KIZZY SINHA Consulting Unavailable JEAN PIERRE, ROVERTO Consulting Unavailable Markos Arellano MD Primary Care Provider Markos Arellano MD Primary Care Provider Uziel GAMINO, Imanthony Attending Provider Markos Arellano Primary Care Unavailable Asaad, Imad Attending Unavailable Asaad, Imad Admitting Unavailable Asaad, Imad Attending Unavailable Asaad, Imad Admitting Unavailable Nadsandra, Markos Primary Care Unavailable ADAN, MARKOS Attending Unavailable NADERETheodore, MARKOS Attending Unavailable NADERER, MARKOS Attending Unavailable [...] January 27, 2021 11:00pm Vitamin C Active cefdinir 300 mg oral capsule (3 sources) Cephalosporin Antibacterial Start: 11-15-2024 End: 11-25-2024 take 1 capsule by mouth in the morning cefdinir (Omnicef) 300 MG capsule Indications: Upper respiratory tract infection, unspecified type Take 1 capsule (300 mg) by mouth in the morning and 1 capsule (300 mg) before bedtime. Do all this for 10 days. 20 capsule 11/15/2024 11/25/2024 Active cholecalciferol 0.05 mg oral tablet (3 [...] Start: 01-28-2021 take 1 tablet by mouth in the morning glimepiride (Amaryl) 4 MG tablet Indications: Type 2 diabetes mellitus with hyperglycemia, without long-term current use of insulin (HCC) Take 1 tablet (4 mg) by mouth [...] Daily Active lisinopril 40 mg oral tablet (20 sources) Angiotensin Converting Enzyme Inhibitor Start: 05-26-2024 End: 05-26-2025 take 1 tablet by mouth once daily lisinopril 40 MG tablet Indications: Essential hypertension, benign Take 1 tablet (40 mg) by mouth Daily 90 tablet 3 05/26/2024 05/26/2025 Active Start: 01-28-2021 take 1 tablet by jayda th once daily Lisinopril 20 mg tablet Active 20 MG PO Daily January 27, 2021 11:00pm take 1 tablet by jayda th in the morning lisinopril 40 MG tablet Take 40 mg by mouth in the morning. Active metFORMIN hydrochloride 1000 mg oral tablet (20 sources) Biguanide Start: 01-28-2021 take 1 tablet by mouth in the morning metFORMIN (Glucophage) 1000 MG tablet Indications: Type 2 diabetes mellitus with hyperglycemia, without long-term current use of insulin (HCC) Take 1 tablet (1,000 mg) by mouth in the morning and 1 tablet (1,000 mg) in the evening. Take with meals. 180 tablet 3 12/11/2023 Active nabumetone 500 mg oral tablet (14 sources) Nonsteroidal Anti-inflammatory Drug Start: 01-22-2024 take 1 tablet by mouth twice daily as needed for pain nabumetone (Relafen) 500 MG tablet Indications: Acute right-sided low back pain without sciatica Take 1 tablet (500 mg) by mouth 2 (two) times a day as needed for moderate pain 60 tablet 3 01/22/2024 Active omeprazole 40 mg delayed release oral capsule (19 sources) Proton Pump Inhibitor Start: 07-01-2023 take 1 capsule by mouth before mealtime omeprazole (PriLOSEC) [address] capsule Indications: Gastroesophageal reflux disease without esophagitis Take 1 capsule (40 mg) by mouth in the morning. Take before meals. Do not crush or chew.. 90 capsule 3 07/01/2023 Active Start: 01-28-2021 take 1 capsule by mo uth once daily Omeprazole 20 mg capsule,delayed release(DR/EC) Active 20 MG PO Daily January 27, 2021 11:00pm Ozempic, 2 MG/DOSE, 8 MG/3ML solution pen-injector (3 sources) Start: 10-11-2024 End: 11-18-2024 inject 2 mg by subcutaneous injection every week Ozempic, 2 MG/DOSE, 8 MG/3ML solution pen-injector Indications: Type 2 diabetes mellitus with hyperglycemia, without long-term current use of insulin (HCC) INJECT 2MG SUBCUTANEOUSLY ONCE A WEEK 3 mL 10/11/2024 11/18/2024 Discontinued (Reorder) Start: 10-11-2024 inject 2 mg by subcu taneous injection every week Ozempic, 2 MG/DOSE, 8 MG/3ML solution pen-injector Indications: Type 2 diabetes mellitus with hyperglycemia, without long-term current use of insulin (HCC) INJECT 2MG SUBCUTANEOUSLY ONCE A WEEK 3 mL 10/11/2024 Active predniSONE 50 mg oral tablet (2 sources) [...] (Ozempic, 2 MG/DOSE,) 8 MG/3ML solution pen-injector (16 sources) Start: 11-18-2024 Semaglutide, 2 MG/DOSE, (Ozempic, 2 MG/DOSE,) 8 MG/3ML solution pen-injector Indications: Type 2 diabetes mellitus with hyperglycemia, without long-term current use of insulin (HCC) Inject 2 mg under the skin every 7 (seven) days 3 mL 5 11/18/2024 Active Start: 01-20-2024 inject 2 mg by subcu taneous injection every week Semaglutide, 2 MG/DOSE, (Ozempic, [...] Discontinued (Reorder) sildenafil 100 mg oral tablet (16 sources) Phosphodiesterase 5 Inhibitor End: 11-18-2024 take 1 tablet by mouth every twenty-four hours as needed sildenafil (Viagra) 100 MG tablet Take 100 mg by mouth Daily as needed for erectile dysfunction 11/18/2024 Discontinued tamsulosin hydrochloride 0.4 mg oral capsule (2 sources) alpha-Adrenergic Shannan take 1 capsule by mouth every twenty-four hours Tamsulosin HCl 0.4 MG 1 capsule Orally Once a day Active Vitamin D3 (5 sources) Vitamin D3 Active Zinc (8 sources) Start: 01-28-2021 take 1 tablet by mouth [...] Onset: 03-07-2021 Resolved: 03-07-2021 Chronic Esophageal disorders (20 sources) Gastroesophageal reflux disease; Translations: [Gastro-esophageal reflux disease without esophagitis] Onset: 06-11-2021 Resolved: 06-11-2021 Chronic Essential hypertension (20 sources) Essential (primary) hypertension; Translations: [Benign essential hypertension] Onset: 08-21-2021 02-19-2024 Chronic Immunity disorders (4 sources) Secondary immune deficiency disorder; Translations: [Immunodeficiency due to conditions classified elsewhere ([facility])] 03-08-2024 Chronic Osteoarthritis (4 sources) Osteoarthritis of knee; Translations: [Osteoarthritis of knee, unspecified] Onset: 06-11-2021 Resolved: 06-11-2021 Chronic Other liver diseases (8 sources) Steatosis of liver; Translations: [Fatty (change of) liver, not elsewhere classified] 05-24-2024 Chronic Other liver diseases (17 sources) Fatty (change of) liver, not elsewhere classified; Translations: [Other chronic nonalcoholic liver disease] Onset: 03-07-2021 Resolved: 06-11-2021 Chronic Other liver diseases (2 sources) Elevated liver enzymes level; Translations: [Abnormal levels of other serum enzymes] 05-24-2024 Episodic Other liver diseases (2 sources) Abnormal levels of other serum enzymes; Translations: [Other nonspecific abnormal serum enzyme levels] 05-24-2024 Episodic Other male genital disorders (2 sources) Secondary erectile dysfunction; Translations: [Erectile dysfunction due to diseases classified elsewhere] 11-18-2024 Chronic Other nutritional; endocrine; and metabolic disorders (7 sources) Metabolic syndrome X; Translations: [Metabolic syndrome] 05-24-2024 Chronic Other nutritional; endocrine; and metabolic disorders (1 source) Metabolic syndrome Onset: 06-11-2021 Resolved: 06-11-2021 Chronic Other nutritional; endocrine; and metabolic disorders (16 sources) Body mass index 30+ - obesity; Translations: [Body mass index (BMI) 37.0-37.9, adult] Onset: 07-01-2023 02-19-2024 Chronic Other nutritional; endocrine; and metabolic disorders (4 sources) Severe obesity; Translations: [Class 2 severe obesity due to excess calories with serious comorbidity and body mass index (BMI) of 38.0 to 38.9 in adult ([facility])] Onset: 07-01-2023 11-18-2024 Chronic Unclassified (1 source) CONTACT W/AND (SUSP) EXPOS COVID-19; Translations: [CONTACT W/AND (SUSP) EXPOS COVID-19] Onset: 08-21-2021 Past or Other Problems Problem Classification Problem Date Documented Da te Episodic/Chronic Abdominal hernia (6 sources) Hiatal hernia; Translations: [Diaphragmatic hernia without obstruction or gangrene] Onset: 03-07-2021 Resolved: 03-07-2021 Episodic Abdominal pain (20 sources) Right upper quadrant pain; Translations: [Right upper quadrant pain] Onset: 03-07-2021 Resolved: 11-18-2024 Episodic Acute and unspecified renal failure (1 source) Acute kidney failure, unspecified; Translations: [ACUTE KIDNEY FAILURE UNSPECIFIED] Onset: 08-21-2021 Episodic Esophageal disorders (5 sources) Esophagitis; Translations: [Esophagitis] Episodic Hemorrhoids (6 sources) Hemorrhoids; Translations: [Unspecified hemorrhoids] Onset: 03-07-2021 Resolved: 03-07-2021 Episodic Other aftercare (1 source) intermediate (current) use of oral hypoglycemic drugs; Translations: [PENITENTIARY USE ORAL HYPOGLYCEMIC DX] Onset: 08-21-2021 Episodic [...] Spondylosis; intervertebral disc disorders; other back problems (16 sources) Acute low back pain; Translations: [Acute right-sided low back pain without sciatica] Onset: 12-11-2023 Resolved: 03-08-2024 01-22-2024 Episodic Sprains and strains (2 sources) Low back strain; Translations: [Strain of muscle, fascia and tendon of lower back, initial encounter] Onset: 12-11-2023 12-11-2023 Episodic Unclassified (1 source) Esophagitis K20.90; Translations: [Esophagitis K20.90] Onset: 03-07-2021 Resolved: 03-07-2021 Unclassified (4 sources) Non-alcoholic fatty liver disease 03-08-2024 Urinary tract infections (3 sources) Acute pyelonephritis; Translations: [ACUTE PYELONEPHRITIS] Onset: 08-16-2021 Episodic Results Test Name Value Interpretation Reference Range Facility [facility] Antinuclear Antibodieson 05-24-2024 Antinuclear Abs, IFA Positive Critically abnormal . [facility] Comment on above: Result Comment: Nega tive <1:80 Borderline 1:80 Positive >1:80 Performed By: #### C BC, HEPATIC, BIANKA #### [place] [address] [place] #### ALPHA PHEN, HAABT, CERULOP, L-K MICRO, IGG, HBCAB, SMAB, HBSAG, HBSAB, HCV RX PCR, [facility]ISON, HCBIGM, HEMOCHROM, MITOM2, HAAB #### [facility] , Homogeneous Pattern 1 Normal . [facility] Comment on above: Result Comment: ICAP nomenclature: [id number] Performed By: #### C BC, HEPATIC, BIANKA #### [place] [address] [place] #### ALPHA PHEN, HAABT, CERULOP, L-K MICRO, IGG, HBCAB, SMAB, HBSAG, HBSAB, HCV RX PCR, [facility]ISON, HCBIGM, HEMOCHROM, MITOM2, HAAB #### [facility] , Note 1 Comment Normal . [facility] Comment on above: Result Comment: Stefani castro Potential Disease Association Homogeneous Systemic Lupus Erythematosus, Drug Induced Systemic Lupus Erythematosus, Chronic Autoimmune hepatitis, Juvenile Idiopathic Arthritis Speckled Sjogren Syndrome, Systemic Lupus Erythematosus, Subacute Cutaneous Lupus, Lupus, Congenital Heart Block, Mixed Connective Tissue Disease, Scleroderma-diffuse, Scleroderma-Autoimmune Myositis Overlap Syndrome, Systemic Lupus Srslzumjptbcj-Wiwwwqbdmjm-Cwsvfcactm Myositis Overlap Syndrome, Systemic Autoimmune Rheumatic Disease, [...] Cytopenias, Linear Scleroderma, Antiphospholipid Syndrome Performed at: - [facility] [address] [id number] Bead Preparer: Forest Mcclain PhD, Phone: [phone] Performed By: #### C BC, HEPATIC, BIANKA #### [address] #### ALPHA PHEN, HAABT, CERULOP, L-K MICRO, IGG, HBCAB, SMAB, HBSAG, HBSAB, HCV RX PCR, HARRISON, HCBIGM, HEMOCHROM, MITOM2, HAAB #### [facility] , Actin smooth muscle IgG Ab [ Units/volume] in SerumOrdered By: ad [facility] on 05-24-2024 Actin smooth muscle IgG Qn (S) Actin smooth muscle IgG Ab [Units/volume] in Serum 0-19 [facility] Comment on above: Negative 0 - 19 Weak positive 20 - 30 Moderate to strong positive >30 Actin Antibodies are found in 52-85% of patients with autoimmune hepatitis or chronic active hepatitis and in 22% of patients with primary biliary cirrhosis. Alanine aminotransferase [En zymatic activity/volume] in Serum or PlasmaOrdered By: Imad Asaad on 05-24-2024 ALT [Catalytic activity/Vol] Alanine aminotransferase [Enzymatic activity/volume] in Serum or Plasma High 7-52 [facility] Albumin [Mass/volume] in Ser um or Plasma by Bromocresol green (BCG) dye binding methoOrdered By: Imad Asaad on 05-24-2024 Albumin BCG dye [Mass/Vol] Albumin [Mass/volume] in Serum or Plasma by Bromocresol green (BCG) dye binding metho 3.5-5.7 [facility] Alkaline phosphatase [Enzyma tic activity/volume] in Serum or PlasmaOrdered By: Imad Asaad on 05-24-2024 ALP [Catalytic activity/Vol] Alkaline phosphatase [Enzymatic activity/volume] in Serum or Plasma 34-104 [facility] Njkya-2-Hhtizstofil Phenotyp luan 05-24-2024 Alpha 1 Anti-Trypsin 139 mg/dL Normal 101-187 [facility] Comment on above: Performed By: #### C BC, HEPATIC, BIANKA #### [facility] [address] #### ALPHA PHEN, HAABT, CERULOP, L-K MICRO, IGG, HBCAB, SMAB, HBSAG, HBSAB, HCV RX PCR, HARRISON, HCBIGM, HEMOCHROM, MITOM2, HAAB #### [facility] , Phenotype (P1) MM Normal . [facility] Comment on above: Result Comment: MM Phenotype is considered to be normal , producing normal serum levels of asryv-2-ushznmwa inhibitor and not associated with clinical disease. [...] Ranges used to confirm phenotype. Performed at: [address] [id number] Bead Preparer: Forest Mcclain PhD, Phone: [phone] Performed at: [address] [id number] Bead Preparer: Jeannine Jacobson MD, Phone: [phone] Performed By: #### C BC, HEPATIC, BIANKA #### [facility] [address] #### ALPHA PHEN, HAABT, CERULOP, L-K MICRO, IGG, HBCAB, SMAB, HBSAG, HBSAB, HCV RX PCR, HARRISON, HCBIGM, HEMOCHROM, MITOM2, HAAB #### [facility] , Aspartate aminotransferase [ Enzymatic activity/volume] in Serum or PlasmaOrdered By: [facility] on 05-24-2024 AST [Catalytic activity/Vol] Aspartate aminotransferase [Enzymatic activity/volume] in Serum or Plasma High 13-39 [facility] Basophils Auto (Bld) [#/Vol] Ordered By: [facility] on 05-24-2024 Basophils (Bld) [#/Vol] Automated basophil count 0.0-0.2 [facility] Basophils/100 WBC Auto (Bld) Ordered By: [facility] on 05-24-2024 Basophils/100 WBC (d) Automated basophil % . [facility] Bilirubin.direct [Mass/volum e] in Serum or PlasmaOrdered By: [facility] on 05-24-2024 Bilirubin.direct [Mass/Vol] Bilirubin.direct [Mass/volume] in Serum or Plasma 0.03-0.18 [facility] Bilirubin.total [Mass/volume ] in Serum or PlasmaOrdered By: [facility] on 05-24-2024 Bilirubin [Mass/Vol] Bilirubin.total [Mass/volume] in Serum or Plasma 0.3-1.0 [facility] Blood or tissue HFE gene mut ations identification by molecular genetics methodOrdered By: [facility] on 05-24-2024 HFE gene targeted mutation analysis Molgen Nom (Bld/Tiss) Blood or tissue HFE gene mutations identification by molecular genetics method . [facility] Comment on above: Results:c.845G>A (p. Wlq234Flv) - Not Detectedc.187C>G (p.Qkl34Zcx) - Detected, heterozygousc.193A>T (p.Fsg14Zbq) - Not DetectedNot associated with increased risk [...] recommended for patientswho are homozygous for c.845G>A (p.Bte758Lcs) and have yetto experience clinical symptoms.Comments:The most common HFE variants associated with hereditaryhemochromatosis are c.845G>A (p.Nhk683Cqm), c.187C>G(p.Doh52Znv), c.193A>T (p.Hcf16Vew). While patientshomozygous for c.845G>A (p.Xhq180Qzq) are the most likelyto present clinical symptoms, less than 10% developclinically significant iron overload with tissue and organdamage.Genetic counseling is recommended to discuss the potentialclinical implications of positive results, as well asrecommendations for testing family members.Genetic Coordinators are available for health careproviders to discuss results at [phone]).Test Details:Three variants analyzed:c.845G>A (p.Vhd935Gor), commonly referred to as C282Yc.187C>G (p.Yuz65Zro), commonly referred to as H63Dc.193A>T (p.Izd17Izr), commonly referred to as G45ELdhjnvl/Limitations:DNA Analysis of the HFE gene (NM_[id number]) was [...] was developed and its performancecharacteristics determined by [facility]. It has not beencleared or approved by the Food and Drug Administration.References:Babar BR, cSott PC, Chaz KV, Robert LW, Jesusita ;[employer].Diagnosis and management of hemochromatosis: 2011 practiceguideline by the [employer] the Study ofLiver Diseases. Hepatology. 2011 Nov;54(1):328-43. doi:10.1002/hep.13825. PMID: 72684574; PMCID: UZO1763377.Nevaeh G, Paramjit P, Werner POOL, Jesus H, Jane O,Sheldon S, Antolin I, Foreign M, Miguel S. [facility] best practiceguidelines for the molecular genetic diagnosis ofhereditary hemochromatosis (HH). Eur J Hum Katie. 2016Apr;24(4):479-95. doi: 10.1038/ejhg.2015.128. Epub 2014. PMID: 18765540; PMCID: [id number]. Ceruloplasminon 05-24-2024 Ceruloplasmin 21.3 mg/dL Normal 16.0-31.0 [facility] Comment on above: Result Comment: Perf ormed at: - [facility] [address] [id number] Bead Preparer: Forest Mcclain PhD, Phone: [phone] PERFORMED BY: [place] [address] PATHOLOGIST ANIMAL SITTER FRANSISCO GONCALVES M.D. Performed By: #### C BC, HEPATIC, BIANKA #### [address] #### ALPHA PHEN, HAABT, CERULOP, L-K MICRO, IGG, HBCAB, SMAB, HBSAG, HBSAB, HCV RX PCR, [facility]ISON, HCBIGM, HEMOCHROM, MITOM2, HAAB #### [facility] , Complete Blood Count Auto Di ffon 05-24-2024 Basophils (Bld) [#/Vol] 0.0 10*3/uL Normal 0.0-0.2 [facility] Comment on above: Result Comment: PERF ORMED BY: [place] [address] PATHOLOGIST ANIMAL SITTER FRANSISCO GONCALVES M.D. Performed By: #### C BC, HEPATIC, BIANKA #### [place] [address] [place] #### ALPHA PHEN, HAABT, CERULOP, L-K MICRO, IGG, HBCAB, SMAB, HBSAG, HBSAB, HCV RX PCR, HARRISON, HCBIGM, HEMOCHROM, MITOM2, HAAB #### [facility] , Basophils/100 WBC (Bld) 0.5 % Normal . [facility] Comment on above: Performed By: #### C BC, HEPATIC, BIANKA #### [place] [address] [place] #### ALPHA PHEN, HAABT, CERULOP, L-K MICRO, IGG, HBCAB, SMAB, HBSAG, HBSAB, HCV RX PCR, HARRISON, HCBIGM, HEMOCHROM, MITOM2, HAAB #### [facility] , Eosinophils (Bld) [#/Vol] 0.1 10*3/uL Normal 0.0-0.45 [facility] Comment on above: Performed By: #### C BC, HEPATIC, BIANKA #### [place] [address] [place] #### ALPHA PHEN, HAABT, CERULOP, L-K MICRO, IGG, HBCAB, SMAB, HBSAG, HBSAB, HCV RX PCR, HARRISON, HCBIGM, HEMOCHROM, MITOM2, HAAB #### [facility] , Eosinophils/100 WBC (Bld) 1.7 % Normal . [facility] Comment on above: Performed By: #### C BC, HEPATIC, BIANKA #### [place] [address] [place] #### ALPHA PHEN, HAABT, CERULOP, L-K MICRO, IGG, HBCAB, SMAB, HBSAG, HBSAB, HCV RX PCR, HARRISON, HCBIGM, HEMOCHROM, MITOM2, HAAB #### [facility] , Erythrocyte distribution width (RBC) [Ratio] 13.3 % Normal 12.0-14.8 [facility] Comment on above: Performed By: #### C BC, HEPATIC, BIANKA #### [place] [address] [place] #### ALPHA PHEN, HAABT, CERULOP, L-K MICRO, IGG, HBCAB, SMAB, HBSAG, HBSAB, HCV RX PCR, HARRISON, HCBIGM, HEMOCHROM, MITOM2, HAAB #### [facility] , Hematocrit (Bld) [Volume fraction] 43.7 % Normal 38.8-50.0 [facility] Comment on above: Performed By: #### C BC, HEPATIC, BIANKA #### [place] [address] [place] #### ALPHA PHEN, HAABT, CERULOP, L-K MICRO, IGG, HBCAB, SMAB, HBSAG, HBSAB, HCV RX PCR, HARRISON, HCBIGM, HEMOCHROM, MITOM2, HAAB #### [facility] , Hemoglobin (Bld) [Mass/Vol] 14.8 g/dL Normal 13.0-17.0 [facility] Comment on above: Performed By: #### C BC, HEPATIC, BIANKA #### [place] [address] [place] #### ALPHA PHEN, HAABT, CERULOP, L-K MICRO, IGG, HBCAB, SMAB, HBSAG, HBSAB, HCV RX PCR, HARRISON, HCBIGM, HEMOCHROM, MITOM2, HAAB #### [facility] , Lymphocytes (Bld) [#/Vol] 2.9 10*3/uL Normal 1.00-4.8 [facility] Comment on above: Performed By: #### C BC, HEPATIC, BIANKA #### [place] [address] [place] #### ALPHA PHEN, HAABT, CERULOP, L-K MICRO, IGG, HBCAB, SMAB, HBSAG, HBSAB, HCV RX PCR, HARRISON, HCBIGM, HEMOCHROM, MITOM2, HAAB #### [facility] , Lymphocytes/100 WBC (Bld) 37.3 % Normal . [facility] Comment on above: Performed By: #### C BC, HEPATIC, BIANKA #### [place] [address] [place] #### ALPHA PHEN, HAABT, CERULOP, L-K MICRO, IGG, HBCAB, SMAB, HBSAG, HBSAB, HCV RX PCR, HARRISON, HCBIGM, HEMOCHROM, MITOM2, HAAB #### [facility] , MCH (RBC) [Entitic mass] 32.7 pg Normal 27.5-35.2 [facility] Comment on above: Performed By: #### C BC, HEPATIC, BIANKA #### [place] [address] [place] #### ALPHA PHEN, HAABT, CERULOP, L-K MICRO, IGG, HBCAB, SMAB, HBSAG, HBSAB, HCV RX PCR, HARRISON, HCBIGM, HEMOCHROM, MITOM2, HAAB #### [facility] , MCV (RBC) [Entitic vol] 96.2 fL Normal 83.5-101 [facility] Comment on above: Performed By: #### C BC, HEPATIC, BIANKA #### [place] [address] [place] #### ALPHA PHEN, HAABT, CERULOP, L-K MICRO, IGG, HBCAB, SMAB, HBSAG, HBSAB, HCV RX PCR, HARRISON, HCBIGM, HEMOCHROM, MITOM2, HAAB #### [facility] , Mean Corpuscular HGB Conc 34.0 g/dL Normal 32.5-35.6 [facility] Comment on above: Performed By: #### C BC, HEPATIC, BIANKA #### [place] [address] [place] #### ALPHA PHEN, HAABT, CERULOP, L-K MICRO, IGG, HBCAB, SMAB, HBSAG, HBSAB, HCV RX PCR, HARRISON, HCBIGM, HEMOCHROM, MITOM2, HAAB #### [facility] , Monocytes (Bld) [#/Vol] 0.6 10*3/uL Normal 0.0-0.8 [facility] Comment on above: Performed By: #### C BC, HEPATIC, BIANKA #### [address] #### ALPHA PHEN, HAABT, CERULOP, L-K MICRO, IGG, HBCAB, SMAB, HBSAG, HBSAB, HCV RX PCR, HARRISON, HCBIGM, HEMOCHROM, MITOM2, HAAB #### [facility] , Monocytes/100 WBC (Bld) 7.1 % Normal . [facility] Comment on above: Performed By: #### C BC, HEPATIC, BIANKA #### [place] [address] [place] #### ALPHA PHEN, HAABT, CERULOP, L-K MICRO, IGG, HBCAB, SMAB, HBSAG, HBSAB, HCV RX PCR, HARRISON, HCBIGM, HEMOCHROM, MITOM2, HAAB #### [facility] , Neutrophils (Bld) [#/Vol] 4.2 10*3/uL Normal 1.8-7.7 [facility] Comment on above: Performed By: #### C BC, HEPATIC, BIANKA #### [place] [address] [place] #### ALPHA PHEN, HAABT, CERULOP, L-K MICRO, IGG, HBCAB, SMAB, HBSAG, HBSAB, HCV RX PCR, HARRISON, HCBIGM, HEMOCHROM, MITOM2, HAAB #### [facility] , Neutrophils/100 WBC (Bld) 53.4 % Normal . [facility] Comment on above: Performed By: #### C BC, HEPATIC, BIANKA #### [place] [address] [place] #### ALPHA PHEN, HAABT, CERULOP, L-K MICRO, IGG, HBCAB, SMAB, HBSAG, HBSAB, HCV RX PCR, HARRISON, HCBIGM, HEMOCHROM, MITOM2, HAAB #### [facility] , NRBC% 0.1 /100{WBC} Normal 0-0.5 [facility] Comment on above: Performed By: #### C BC, HEPATIC, BIANKA #### [place] [address] [place] #### ALPHA PHEN, HAABT, CERULOP, L-K MICRO, IGG, HBCAB, SMAB, HBSAG, HBSAB, HCV RX PCR, HARRISON, HCBIGM, HEMOCHROM, MITOM2, HAAB #### [facility] , Platelet mean volume (Bld) [Entitic vol] 9.9 fL Normal 6.6-10.1 [facility] Comment on above: Performed By: #### C BC, HEPATIC, BIANKA #### [place] [address] [place] #### ALPHA PHEN, HAABT, CERULOP, L-K MICRO, IGG, HBCAB, SMAB, HBSAG, HBSAB, HCV RX PCR, HARRISON, HCBIGM, HEMOCHROM, MITOM2, HAAB #### [facility] , Platelets (Bld) [#/Vol] 159 10*3/uL Normal 150-450 [facility] Comment on above: Performed By: #### C BC, HEPATIC, BIANKA #### [place] [address] [place] #### ALPHA PHEN, HAABT, CERULOP, L-K MICRO, IGG, HBCAB, SMAB, HBSAG, HBSAB, HCV RX PCR, HARRISON, HCBIGM, HEMOCHROM, MITOM2, HAAB #### [facility] , RBC (Bld) [#/Vol] 4.54 10*6/uL Normal 3.90-5.60 [facility] [facility] Comment on above: Performed By: #### C BC, HEPATIC, BIANKA #### [facility] [address] [place] [address] #### ALPHA PHEN, HAABT, CERULOP, L-K MICRO, IGG, HBCAB, SMAB, HBSAG, HBSAB, HCV RX PCR, HARRISON, HCBIGM, HEMOCHROM, MITOM2, HAAB #### [facility] , WBC (Bld) [#/Vol] 7.8 10*3/uL Normal 4.1-10.5 [facility] Comment on above: Performed By: #### C BC, HEPATIC, BIANKA #### [facility] [address] [place] [address] [place] #### ALPHA PHEN, HAABT, CERULOP, L-K MICRO, IGG, HBCAB, SMAB, HBSAG, HBSAB, HCV RX PCR, HARRISON, HCBIGM, HEMOCHROM, MITOM2, HAAB #### [facility] , Eosinophils Auto (Bld) [#/Vo l]Ordered By: Imad Asaad on 05-24-2024 Eosinophils (Bld) [#/Vol] Automated eosinophil count 0.0-0.45 [facility] Eosinophils/100 WBC Auto (Bl d)Ordered By: Imad Asaad on 05-24-2024 Eosinophils/100 WBC (Bld) Automated eosinophil % . [facility] Erythrocyte distribution wid th Auto (RBC) [Ratio]Ordered By: Imad Asaad on 05-24-2024 Erythrocyte distribution width (RBC) [Ratio] Erythrocyte distribution width [Ratio] by Automated count 12.0-14.8 [facility] Ferritinon 05-24-2024 Ferritin [Mass/Vol] 241.6 ng/mL Normal 23.9-336.2 [facility] Comment on above: Result Comment: PERF ORMED BY: [place] [address] PATHOLOGIST ANIMAL SITTER FRANSISCO GONCALVES M.D. Performed By: #### C BC, HEPATIC, BIANKA #### [facility] [address] [place] [address] [place] #### ALPHA PHEN, HAABT, CERULOP, L-K MICRO, IGG, HBCAB, SMAB, HBSAG, HBSAB, HCV RX PCR, HARRISON, HCBIGM, HEMOCHROM, MITOM2, HAAB #### [facility] , Ferritin [Mass/volume] in Se rum or PlasmaOrdered By: [facility] on 05-24-2024 Ferritin [Mass/Vol] Ferritin [Mass/volum e] in Serum or Plasma 23.9-336.2 [facility] Globulin Calc (S) [Mass/Vol] Ordered By: [facility] on 05-24-2024 Globulin (S) [Mass/Vol] Serum globulin measurement by calculation (mass/volume) [facility] Hematocrit Auto (Bld) [Volum e fraction]Ordered By: [facility] on 05-24-2024 Hematocrit (Bld) [Volume fraction] Hematocrit [Volume Fraction] of Blood by Automated count 38.8-50.0 [facility] Hemoglobin [Mass/volume] in BloodOrdered By: [facility] 05-24-2024 Hemoglobin (Bld) [Mass/Vol] Hemoglobin [Mass/volume] in Blood 13.0-17.0 [facility] Hep C Ab wRfx to Qnt PCRon 0 05-24-2024 Hepatitis C Virus Antibody Non-Reactive Normal Non Reactive [facility] Comment on above: Performed By: #### C BC, HEPATIC, BIANKA #### [place] [address] [place] #### ALPHA PHEN, HAABT, CERULOP, L-K MICRO, IGG, HBCAB, SMAB, HBSAG, HBSAB, HCV RX PCR, HARRISON, HCBIGM, HEMOCHROM, MITOM2, HAAB #### [facility] , Interpretation Hepatitis C Comment Normal . [facility] Comment on above: Result Comment: Not infected with HCV unless early or acute infection is suspected (which may be delayed in an immunocompromised individual), or other evidence exists to indicate HCV infection. Performed By: #### C BC, HEPATIC, BIANKA #### [place] [address] [place] #### ALPHA PHEN, HAABT, CERULOP, L-K MICRO, IGG, HBCAB, SMAB, HBSAG, HBSAB, HCV RX PCR, HARRISON, HCBIGM, HEMOCHROM, MITOM2, HAAB #### [facility] , Hepatic Panelon 05-24-2024 Albumin [Mass/Vol] 4.2 g/dL Normal 3.5-5.7 [facility] Comment on above: Performed By: #### C BC, HEPATIC, BIANKA #### [place] [address] [place] #### ALPHA PHEN, HAABT, CERULOP, L-K MICRO, IGG, HBCAB, SMAB, HBSAG, HBSAB, HCV RX PCR, HARRISON, HCBIGM, HEMOCHROM, MITOM2, HAAB #### [facility] , Albumin/Globulin [Mass ratio] 1.4 {ratio} Normal [facility] Comment on above: Performed By: #### C BC, HEPATIC, BIANKA #### [place] [address] [place] #### ALPHA PHEN, HAABT, CERULOP, L-K MICRO, IGG, HBCAB, SMAB, HBSAG, HBSAB, HCV RX PCR, HARRISON, HCBIGM, HEMOCHROM, MITOM2, HAAB #### [facility] , ALP [Catalytic activity/Vol] 45 U/L Normal 34-104 [facility] Comment on above: Performed By: #### C BC, HEPATIC, BIANKA #### [place] [address] [place] #### ALPHA PHEN, HAABT, CERULOP, L-K MICRO, IGG, HBCAB, SMAB, HBSAG, HBSAB, HCV RX PCR, HARRISON, HCBIGM, HEMOCHROM, MITOM2, HAAB #### [facility] , ALT [Catalytic activity/Vol] 53 U/L High 7-52 [facility] Comment on above: Performed By: #### C BC, HEPATIC, BIANKA #### [place] [address] [place] #### ALPHA PHEN, HAABT, CERULOP, L-K MICRO, IGG, HBCAB, SMAB, HBSAG, HBSAB, HCV RX PCR, HARRISON, HCBIGM, HEMOCHROM, MITOM2, HAAB #### [facility] , AST [Catalytic activity/Vol] 42 U/L High 13-39 [facility] Comment on above: Performed By: #### C BC, HEPATIC, BIANKA #### [place] [address] [place] #### ALPHA PHEN, HAABT, CERULOP, L-K MICRO, IGG, HBCAB, SMAB, HBSAG, HBSAB, HCV RX PCR, HARRISON, HCBIGM, HEMOCHROM, MITOM2, HAAB #### [facility] , Bilirubin [Mass/Vol] 0.5 mg/dL Normal 0.3-1.0 [facility] Comment on above: Performed By: #### C BC, HEPATIC, BIANKA #### [place] [address] [place] #### ALPHA PHEN, HAABT, CERULOP, L-K MICRO, IGG, HBCAB, SMAB, HBSAG, HBSAB, HCV RX PCR, HARRISON, HCBIGM, HEMOCHROM, MITOM2, HAAB #### [facility] , Bilirubin,Indirect 0.4 mg/dL Normal [facility] Comment on above: Performed By: #### C BC, HEPATIC, BIANKA #### [place] [address] [place] #### ALPHA PHEN, HAABT, CERULOP, L-K MICRO, IGG, HBCAB, SMAB, HBSAG, HBSAB, HCV RX PCR, HARRISON, HCBIGM, HEMOCHROM, MITOM2, HAAB #### [facility] , Bilirubin.indirect [Mass/Vol] 0.10 mg/dL Normal 0.03-0.18 [facility] Comment on above: Performed By: #### C BC, HEPATIC, BIANKA #### [place] [address] [place] #### ALPHA PHEN, HAABT, CERULOP, L-K MICRO, IGG, HBCAB, SMAB, HBSAG, HBSAB, HCV RX PCR, HARRISON, HCBIGM, HEMOCHROM, MITOM2, HAAB #### [facility] , Globulin (S) [Mass/Vol] 3.0 g/dL Normal [facility] Comment on above: Performed By: #### C BC, HEPATIC, BIANKA #### [place] [address] [place] #### ALPHA PHEN, HAABT, CERULOP, L-K MICRO, IGG, HBCAB, SMAB, HBSAG, HBSAB, HCV RX PCR, HARRISON, HCBIGM, HEMOCHROM, MITOM2, HAAB #### [facility] , Protein [Mass/Vol] 7.2 g/dL Normal 6.4-8.9 [facility] Comment on above: Performed By: #### C BC, HEPATIC, BIANKA #### [place] [address] [place] #### ALPHA PHEN, HAABT, CERULOP, L-K MICRO, IGG, HBCAB, SMAB, HBSAG, HBSAB, HCV RX PCR, HARRISON, HCBIGM, HEMOCHROM, MITOM2, HAAB #### [facility] , Hepatitis A Antibody IgMon 0 05-24-2024 Hepatitis A Antibody IgM Negative Normal Negative [facility] Comment on above: Result Comment: A ne gative anti-HAV IgM result suggests no recent or current HAV infection. Performed By: #### C BC, HEPATIC, BIANKA #### [place] [address] [place] #### ALPHA PHEN, HAABT, CERULOP, L-K MICRO, IGG, HBCAB, SMAB, HBSAG, HBSAB, HCV RX PCR, HARRISON, HCBIGM, HEMOCHROM, MITOM2, HAAB #### [facility] , Hepatitis A Antibody Totalon 05-24-2024 Hepatitis A Antibody Total Positive Critically abnormal Negative [facility] Comment on above: Result Comment: Comm ent: The HAV total antibody assay detects both IgG and IgM but does not differentiate between them. A negative result suggests susceptibility to infection. A positive result could be due to vaccination, previously resolved infection or active infection. Testing for HAV IgM should be performed if active HAV infection is suspected. [facility] offers profiles that will automatically reflex positive HAV total antibody results to IgM (e.g., panel #[id number] HAV Antibody w/ Rfx). Performed By: #### C BC, HEPATIC, BIANKA #### [facility] [address] #### ALPHA PHEN, HAABT, CERULOP, L-K MICRO, IGG, HBCAB, SMAB, HBSAG, HBSAB, HCV RX PCR, HARRISON, HCBIGM, HEMOCHROM, MITOM2, HAAB #### [facility] , Hepatitis A virus Ab [Presen ce] in Serum by ImmunoassayOrdered By: Imad Asaad on 05-24-2024 HAV Ab IA Ql (S) Hepatitis A virus Ab [Presence] in Serum by Immunoassay Abnormal Negative [facility] Comment on above: Comment: The HAV [...] HAVtotal antibody results to IgM (e.g., panel #[id number] HAVAntibody w/ Rfx). Hepatitis A virus IgM antibo dy assayOrdered By: Imad Asaad on 05-24-2024 Hepatitis A IgM Antibody Negative Negative [facility] Comment on above: A negative anti-HAV IgM result suggests no recent orcurrent HAV infection. Hepatitis B Core Antibodyon 05-24-2024 Hepatitis B Core Antibody Negative Normal Negative [facility] Comment on above: Performed By: #### C BC, HEPATIC, BIANKA #### [address] #### ALPHA PHEN, HAABT, CERULOP, L-K MICRO, IGG, HBCAB, SMAB, HBSAG, HBSAB, HCV RX PCR, HARRISON, HCBIGM, HEMOCHROM, MITOM2, HAAB #### [facility] , Hepatitis B Core Antibody Ig Mon 05-24-2024 Hepatitis B Core Antibody IgM Negative Normal Negative [facility] Comment on above: Result Comment: Perf ormed at: - [facility] [address] [id number] Bead Preparer: Forest Mcclain PhD, Phone: [phone] Performed By: #### C BC, HEPATIC, BIANKA #### [address] #### ALPHA PHEN, HAABT, CERULOP, L-K MICRO, IGG, HBCAB, SMAB, HBSAG, HBSAB, HCV RX PCR, HARRISON, HCBIGM, HEMOCHROM, MITOM2, HAAB #### [facility] , Hepatitis B Surface Antibody on 05-24-2024 Hepatitis B Surface Antibody Non-Reactive Normal . [facility] Comment on above: Result Comment: Non Reactive: Not immune to HBV infection. Equivocal: Unable to determine if anti-HBs is present at levels consistent with immunity. Reactive: Anti-HBs concentration detected at greater than 10 mIU/mL. Individual is considered to be immune to infection with HBV. Performed By: #### C BC, HEPATIC, BIANKA #### [place] [address] [place] #### ALPHA PHEN, HAABT, CERULOP, L-K MICRO, IGG, HBCAB, SMAB, HBSAG, HBSAB, HCV RX PCR, HARRISON, HCBIGM, HEMOCHROM, MITOM2, HAAB #### [facility] , Hepatitis B Surface Antigeno n 05-24-2024 HBsAg Screen Negative Normal Negative [facility] Comment on above: Result Comment: PERF ORMED BY: [place] [address] PATHOLOGIST ANIMAL SITTER FRANSISCO GONCALVES M.D. Performed By: #### C BC, HEPATIC, BIANKA #### [facility] [address] [place] [address] [place] #### ALPHA PHEN, HAABT, CERULOP, L-K MICRO, IGG, HBCAB, SMAB, HBSAG, HBSAB, HCV RX PCR, HARRISON, HCBIGM, HEMOCHROM, MITOM2, HAAB #### [facility] , Hepatitis B virus core IgM a ntibody assayOrdered By: Kianna Triplett on 05-24-2024 Hepatitis B Core IgM Antibody Negative Negative [facility] Comment on above: Performed at: [place] [id number] Director: Forest Mcclain PhD, Phone: [phone] Hepatitis B virus core antib oskar assayOrdered By: [facility] on 05-24-2024 Hepatitis B Core Total Antibody Negative Negative [facility] Hepatitis C virus IgG Ab [Pr esence] in Serum or Plasma by ImmunoassayOrdered By: anthony [facility] on 05-24-2024 HCV IgG IA Ql Hepatitis C virus Ig G Ab [Presence] in Serum or Plasma by Immunoassay Non Reactive [facility] Hereditary Hemochromatosis,D Manpreet 05-24-2024 Hereditary Hemochromatosis Comment Normal . [facility] Comment on above: Result Comment: Resu lts: c.845G>A (p.Lke676Rjk) - Not Detected c.187C>G (p.Wcz99Pyg) - Detected, heterozygous c.193A>T (p.Pco80Wqc) - Not Detected Not associated with increased [...] for patients who are homozygous for c.845G>A (p.Lcd351Miw) and have yet to experience clinical symptoms. Comments: The most common HFE variants associated with hereditary hemochromatosis are c.845G>A (p.Ygy444Omo), c.187C>G (p.Pcp65Cqr), c.193A>T (p.Gcl88Qjc). While patients homozygous for c.845G>A (p.Mlb340Wms) are the most likely to present clinical symptoms, less than 10% develop clinically significant iron overload with tissue and organ damage. Genetic counseling is recommended to discuss the potential clinical implications of positive results, as well as recommendations for testing family members. Genetic Coordinators are available for health care providers to discuss results at [phone] [place] ([phone]). Test Details: Three variants analyzed: c.845G>A (p.Xqj160Dmo), commonly referred to as C282Y c.187C>G (p.Xxp13Iul), commonly referred to as H63D c.193A>T (p.Wpt80Czt), commonly referred to as S65C Methods/Limitations: DNA [...] developed and its performance characteristics determined by [employer]. It has not been cleared or approved by the Food and Drug Administration. References: Babar BR, Scott PC, Chaz KV, Robert LW, Jesusita ; [employer]. Diagnosis and management of hemochromatosis: 2011 practice guideline by the [employer]. Hepatology. 2010;54(1):328-43. doi: 10.1002/hep.79076. PMID: 48259045; PMCID: [id number]. Nevaeh G, Paramjit P, Werner DW, Jesus H, Jane O, Sheldon S, Antolin I, Foreign Orozco, Miguel Daniel. EMQN best practice guidelines for the molecular genetic diagnosis of hereditary hemochromatosis (HH). Eur J Hum Katie. 2016 Aug;24(4):479-95. doi: 10.1038/ejhg.2015.128. Epub 2014Nov 15. PMID: 81785936; PMCID: [id number]. Performed By: #### C BC, HEPATIC, BIANKA #### [address] #### ALPHA PHEN, HAABT, CERULOP, L-K MICRO, IGG, HBCAB, SMAB, HBSAG, HBSAB, HCV RX PCR, HARRISON, HCBIGM, HEMOCHROM, MITOM2, HAAB #### [facility] , Reviewed by: Comment Normal . [facility] Comment on above: Result Comment: Tech nical Component performed at [employer] Professional Component performed by: [employer] Cruzito Hand, Ph.D., [facility] Director, Molecular Genetics [address] [place] [address] [place] [address] Performed at: [facility] [employer] [facility] [place], [place] [id number] Bead Preparer: Kamille Norman [facility], Phone: [phone] PERFORMED BY: [place] [address] PATHOLOGIST ANIMAL SITTER FRANSISCO GONCALVES M.D. Performed By: #### C BC, HEPATIC, BIANKA #### [place] [address] [place] #### ALPHA PHEN, HAABT, CERULOP, L-K MICRO, IGG, HBCAB, SMAB, HBSAG, HBSAB, HCV RX PCR, HARRISON, HCBIGM, HEMOCHROM, MITOM2, HAAB #### [facility] , Immunoglobulin Lj 5 Immunoglobulin G 1088 mg/dL Normal [id number] [facility] Comment on above: Result Comment: Perf ormed at: - [facility] [id number] Bead Preparer: Forest Mcclain PhD, Phone: [phone] Performed By: #### C BC, HEPATIC, BIANKA #### [place] [address] [place] #### ALPHA PHEN, HAABT, CERULOP, L-K MICRO, IGG, HBCAB, SMAB, HBSAG, HBSAB, HCV RX PCR, HARRISON, HCBIGM, HEMOCHROM, MITOM2, HAAB #### [facility] , Leukocytes [#/volume] correc nina for nucleated erythrocytes in Blood by Automated counOrdered By: Imad Asaad on 05-24-2024 WBC corrected for nucl RBC Auto (Bld) [#/Vol] Leukocytes [#/volume] corrected for nucleated erythrocytes in Blood by Automated coun 4.1-10.5 [facility] Liver-Kidney Microsomal Abon 05-24-2024 Liver-Kidney Microsomal Ab <1.0 Normal 0.0-20.0 [facility] Comment on above: Result Comment: Nega tive 0.0 - 20.0 Equivocal 20.1 - 24.9 Positive >24.9 LKM type 1 antibodies are detected in patients with autoimmune hepatitis type 2 and in up to 8% of patients with chronic HCV infection. Performed at: - [facility] [id number] Bead Preparer: Forest Mcclain PhD, Phone: [phone] Performed By: #### C BC, HEPATIC, BIANKA #### [place] [address] [place] #### ALPHA PHEN, HAABT, CERULOP, L-K MICRO, IGG, HBCAB, SMAB, HBSAG, HBSAB, HCV RX PCR, HARRISON, HCBIGM, HEMOCHROM, MITOM2, HAAB #### [facility] , Lymphocytes Auto (Bld) [#/Vo l]Ordered By: Imad Asaad on 05-24-2024 Lymphocytes (Bld) [#/Vol] Lymphocytes [#/volume] in Blood by Automated count 1.00-4.8 [facility] Lymphocytes/100 WBC Auto (Bl d)Ordered By: Imad Asaad on 05-24-2024 Lymphocytes/100 WBC (Bld) Lymphocytes/100 leukocytes in Blood by Automated count . [facility] MCH Auto (RBC) [Entitic mass ]Ordered By: Imad Asaad on 05-24-2024 MCH (RBC) [Entitic mass] MCH [Entitic mass] by Automated count 27.5-35.2 [facility] MCHC Auto (RBC) [Mass/Vol]Or dered By: Imad Asaad on 05-24-2024 MCHC (RBC) [Mass/Vol] MCHC [Mass/volume] by Automated count 32.5-35.6 [facility] MCV Auto (RBC) [Entitic vol] Ordered By: Imad Asaad on 05-24-2024 MCV (RBC) [Entitic vol] MCV [Entitic volume] by Automated count 83.5-101 [facility] Mitochondrial (M2) Antibodyo n 05-24-2024 Mitochondrial (M2) Antibody <20.0 Normal 0.0-20.0 [facility] Comment on above: Result Comment: Nega tive 0.0 - 20.0 Equivocal 20.1 - 24.9 Positive >24.9 Mitochondrial (M2) Antibodies are found in 90-96% of patients with primary biliary cirrhosis. Performed at: - [facility] [id number] Bead Preparer: Forest Mcclain PhD, Phone: [phone] Performed By: #### C BC, HEPATIC, BIANKA #### [facility] [address] [place] [address] #### ALPHA PHEN, HAABT, CERULOP, L-K MICRO, IGG, HBCAB, SMAB, HBSAG, HBSAB, HCV RX PCR, HARRISON, HCBIGM, HEMOCHROM, MITOM2, HAAB #### [facility] , Monocytes Auto (Bld) [#/Vol] Ordered By: Imad Asaad on 05-24-2024 Monocytes (Bld) [#/Vol] Automated blood monocyte count 0.0-0.8 [facility] Monocytes/100 WBC Auto (Bld) Ordered By: Imad Asaad on 05-24-2024 Monocytes/100 WBC (Bld) Automated monocyte % . [facility] Neutrophils Auto (Bld) [#/Vo l]Ordered By: Imad Asaad on 05-24-2024 Neutrophils (Bld) [#/Vol] Neutrophils [#/volume] in Blood by Automated count 1.8-7.7 [facility] Neutrophils/100 WBC Auto (Bl d)Ordered By: Imad Asaad on 05-24-2024 Neutrophils/100 WBC (Bld) Automated neutrophil % . [facility] No Panel InformationOrdered By: Imad Asaad on 05-24-2024 Anti-Nuclear Antibody Comment 2 Comment . [facility] Comment on above: Pattern Potential Di sease Association Homogeneous Systemic Lupus Erythematosus, Drug Induced Systemic Lupus Erythematosus, Chronic Autoimmune hepatitis, Juvenile Idiopathic Arthritis Speckled Sjogren Syndrome, Systemic Lupus Erythematosus, Subacute Cutaneous Lupus, Lupus, Congenital Heart Block, Mixed Connective Tissue Disease, Scleroderma-diffuse, Scleroderma-Autoimmune Myositis Overlap Syndrome, Systemic Lupus Xrtqysgzaeybh-Hvlithqfsst-Ikqiaepkfo Myositis Overlap Syndrome, Systemic Autoimmune Rheumatic Disease, [...] Cytopenias, Linear Scleroderma, Antiphospholipid Syndrome Performed at: [facility] [address] [id number] Director: Forest Mcclain PhD, Phone: [phone] Hemochromatosis Note Comment . [facility] Comment on above: Technical Component performed at [employer] RTPProfessional Component performed by:[employer] Raimundo Hand, Ph.D., FACMGDirector, Molecular Hmilwres[address] [place] [id number] at: [facility] [employer] [id number] [place], [place] [id number] Director: Kamille Norman [facility], Phone: [phone] Hepatitis C Interpretation Comment . [facility] Comment on above: Not infected with HC V unless early or acute infection issuspected (which may be delayed in an immunocompromisedindividual), or other evidence exists to indicate HCVinfection. Nucleated erythrocytes [Pres ence] in Blood by Automated countOrdered By: Kianna Triplett on 05-24-2024 Nucleated RBC Auto Ql (Bld) Nucleated erythrocytes [Presence] in Blood by Automated count 0-0.5 [facility] Platelet mean volume Auto (B ld) [Entitic vol]Ordered By: Imad Asaad on 05-24-2024 Platelet mean volume (Bld) [Entitic vol] Platelet mean volume [Entitic volume] in Blood by Automated count 6.6-10.1 [facility] Platelets Auto (Bld) [#/Vol] Ordered By: Imad Asaad on 05-24-2024 Platelets (Bld) [#/Vol] Platelets [#/volume] in Blood by Automated count 150-450 [facility] Protein [Mass/volume] in Ser um or PlasmaOrdered By: Imad Asaad on 05-24-2024 Protein [Mass/Vol] Protein [Mass/volume ] in Serum or Plasma 6.4-8.9 [facility] RBC Auto (Bld) [#/Vol]Ordere d By: Imad Asaad on 05-24-2024 RBC (Bld) [#/Vol] Erythrocytes [#/volu me] in Blood by Automated count 3.90-5.60 [facility] Serum hepatitis B virus surf truman antibody detectionOrdered By: Imad Asaad on 05-24-2024 HBV surface Ab Ql (S) Hepatitis B virus surface Ab [Presence] in Serum . [facility] Comment on above: Non Reactive: Not im mune to HBV infection. Equivocal: Unable to determine if anti-HBs is present at levels consistent with immunity. Reactive: Anti-HBs concentration detected at greater than 10 mIU/mL. Individual is considered to be immune to infection with HBV. Serum homogeneous pattern an tinuclear antibody (HARRISON) titerOrdered By: Imad Asaad on 05-24-2024 Homogenous nuclear Ab pattern (S) [Titer] Serum homogeneous pattern antinuclear antibody (HARRISON) titer . [facility] Comment on above: ICAP nomenclature: A C-1 Serum mitochondria M2 IgG an tibody assay (units/volume)Ordered By: Imad Asaad on 05-24-2024 Mitochondria M2 IgG Qn (S) Serum mitochondria M2 IgG antibody assay (units/volume) 0.0-20.0 [facility] Comment on above: Negative 0.0 - 20.0 Equivocal 20.1 - 24.9 Positive >24.9Mitochondrial (M2) Antibodies are found in 90-96% ofpatients with primary biliary cirrhosis.Performed at: [facility] [address] [id number] Director: Forest Mcclain PhD, Phone: [phone] Serum nuclear antibody titer Ordered By: anthony Triplett on 05-24-2024 Nuclear Ab (S) [Titer] Serum nuclear ant ibody titer Abnormal . [facility] Comment on above: Negative <1:80 Borde rline 1:80 Positive >1:80 Serum or plasma IgG measurem ent (mass/volume)Ordered By: ad Asa on 05-24-2024 IgG [Mass/Vol] IgG [Mass/volume] in Serum or Plasma [phone] [facility] Comment on above: Performed at: [facility] [address] [id number] Director: Forest Mcclain PhD, Phone: [phone] Serum or plasma albumin/glob ulin mass ratioOrdered By: Imad Uziel on 05-24-2024 Albumin/Globulin [Mass ratio] Serum or plasma albumin/globulin mass ratio [facility] Serum or plasma alpha 1 anti trypsin measurement (mass/volume)Ordered By: ad Asaad on 05-24-2024 Alpha 1 antitrypsin [Mass/Vol] Serum wgcov-4-uiwqvqxfzml measurement [phone] [facility] Serum or plasma alpha 1 anti trypsin phenotyping identification by immunofixationOrdered By: Kianna Triplett on 05-24-2024 Alpha 1 antitrypsin phenotyping Immunofixation Nom Serum or plasma alpha 1 antitrypsin phenotyping identification by immunofixation . [facility] Comment on above: MM Phenotype is co nsidered to be normal , producingnormal serum levels of yuwry-9-uijjlzpx inhibitor andnot associated with clinical disease. Associated F6Kxwbmc serum levels in other phenotypes and theirincidence [...] reference. Ranges used to confirm phenotype.Performed at: [address] [id number] Director: Forest Mcclain PhD, Phone: [phone] at: [address] [id number] Director: Jeannine Jacobson MD, Phone: [phone] Serum or plasma ceruloplasmi n measurement (mass/volume)Ordered By: anthony Triplett on 05-24-2024 Ceruloplasmin [Mass/Vol] Serum or plasma ceruloplasmin measurement (mass/volume) 16.0-31.0 [facility] Comment on above: Performed at: [address] [id number] Director: Forest Mcclain PhD, Phone: [phone] Serum or plasma hepatitis B virus surface antigen detection by immunoassayOrdered By: Kianna Trpilett on 05-24-2024 HBV surface Ag IA Ql Hepatitis B virus s urface Ag [Presence] in Serum or Plasma by Immunoassay Negative [facility] Serum or plasma lipoprotein a measurement (moles/volume)Ordered By: anthony Triplett on 05-24-2024 Lipoprotein a [Moles/Vol] Serum or plasma lipoprotein a measurement (moles/volume) 0.0-20.0 [facility] Comment on above: Negative 0.0 - 20.0 Equivocal 20.1 - 24.9 Positive >24.9LKM type 1 antibodies are detected in patients withautoimmune hepatitis type 2 and in up to 8% ofpatients with chronic HCV infection.Performed at: [facility] [address] [id number] Director: Forest Mcclain PhD, Phone: [phone] Serum or plasma non-glucuron idated bilirubin measurement (mass/volume)Ordered By: Kianna Triplett on 05-24-2024 Bilirubin.indirect [Mass/Vol] Serum or plasma non-glucuronidated bilirubin measurement (mass/volume) [facility] Smooth Muscle Antibodyon Smooth Muscle Antibody 4 Normal 0-19 [facility] Comment on above: Result Comment: Nega tive 0 - 19 Weak positive 20 - 30 Moderate to strong positive >30 Actin Antibodies are found in 52-85% of patients with autoimmune hepatitis or chronic active hepatitis and in 22% of patients with primary biliary cirrhosis. Performed By: #### C BC, HEPATIC, BIANKA #### [address] #### ALPHA PHEN, HAABT, CERULOP, L-K MICRO, IGG, HBCAB, SMAB, HBSAG, HBSAB, HCV RX PCR, HARRISON, HCBIGM, HEMOCHROM, MITOM2, HAAB #### [facility] , WBC Auto (Bld) [#/Vol]Ordere d By: Kianna Triplett on 05-24-2024 WBC (Bld) [#/Vol] Leukocytes [#/volume ] in Blood by Automated count 4.1-10.5 [facility] CREATININEon 03-15-2024 Creatinine [Mass/Vol] 1.1 mg/dL 0.70 - 1.30 mg/dL [facility] GFR/1.73 sq M.predicted CKD-EPI (S/P/Bld) [Vol rate/Area] >60 >=60 mL/min/1.7 3m 2 [facility] EGFR-NON AF ENGLISH >60 >=60 mL/min/1.7 3m [address] [facility] GLYCOHEMOGLOBIN A1Con 2022 ADA RECOMMENDATION SEE BELOW Normal [facility] Comment on above: Result Comment: ADA RECOMMENDED LIMIT 4.0 - 6.0 ADA THERAPEUTIC TARGET < 7.0 ACTION SUGGESTED > 7.0 Performed By: #### C BCMAN #### [facility] [address] [address] [address] Marta Ashford Glucose [Mass/Vol] 243 mg/dL Normal [facility] Comment on above: Performed By: #### C JIMENA #### [facility] [address] [place] [address] Dr. Marta Ashford HbA1c (Bld) [Mass fraction] 10.1 % Critically high 4.5-6.2 [facility] Comment on above: Performed By: #### C JIMENA #### [facility] [address] [place] [address] Dr. Marta Ashford GLYCOHEMOGLOBIN A1Con 2021 ADA RECOMMENDATION SEE BELOW Normal [facility] Comment on above: Result Comment: ADA RECOMMENDED LIMIT 4.0 - 6.0 ADA THERAPEUTIC TARGET < 7.0 ACTION SUGGESTED > 7.0 Performed By: #### A 1C #### [facility] [address] [place] [address] Dr. Marta Ashford Glucose [Mass/Vol] 266 mg/dL Normal [facility] Comment on above: Performed By: #### A 1C #### [facility] [address] [place] [address] Dr. Marta Ashford HbA1c (Bld) [Mass fraction] 10.9 % Critically high 4.5-6.2 [facility] Comment on above: Performed By: #### A 1C #### [facility] [address] [place] [address] Dr. Marta Ashford CBC AUTO DIFFon 09-10-2021 BASO # 0.1 103/ul Normal 0.0-0.1 [facility] Comment on above: Performed By: #### A 1C #### [facility] [address] [place] [address] Dr. Marta Ashford Basophils/100 WBC (Bld) 0.7 % Normal 0.2-2.0 [facility] Comment on above: Performed By: #### A 1C #### [facility] [address] [place] [address] Dr. Marta Ashford EO # 0.3 103/ul Normal 0.0-0.7 [facility] Comment on above: Performed By: #### A 1C #### [facility] [address] [place] [address] Dr. Marta Ashford Eosinophils/100 WBC (Bld) 2.9 % Normal 0.9-7.0 [facility] Comment on above: Performed By: #### A 1C #### [facility] [address] [place] [address] Dr. Marta Ashford Erythrocyte distribution width (RBC) [Ratio] 12.6 % Normal 11.0-15.0 [facility] Comment on above: Performed By: #### A 1C #### [facility] [address] [place] [address] Dr. Marta Ashford Hematocrit (Bld) [Volume fraction] 45.0 % Normal 42.0-54.0 [facility] Comment on above: Performed By: #### A 1C #### [facility] [address] [place] [address] Dr. Marta Ashford Hemoglobin (Bld) [Mass/Vol] 14.4 g/dL Normal 14.0-18.0 [facility] Comment on above: Performed By: #### A 1C #### [facility] [address] [place] [address] Dr. Marta Ashford IG # 0.06 10e3/ul Critically high 0.00-0.03 [facility] Comment on above: Performed By: #### A 1C #### [facility] [address] [place] [address] Dr. Marta Ashford IG % 0.6 % Critically high 0.0-0.5 [facility] Comment on above: Performed By: #### A 1C #### [facility] [address] [place] [address] Dr. Marta Ashford LYMPH # 3.3 103/ul Normal 1.2-3.8 [facility] Comment on above: Performed By: #### A 1C #### [facility] [address] [place] [address] Dr. Marta Ashford Lymphocytes/100 WBC (Bld) 34.5 % Normal 20.5-60.0 [facility] Comment on above: Performed By: #### A 1C #### [facility] [address] [place] [address] Dr. Marta Ashford MANUAL DIFF REQ NO Normal [facility] Comment on above: Performed By: #### A 1C #### [facility] [address] [place] [address] Dr. Marta Ashfodr MCH (RBC) [Entitic mass] 31.0 pg Normal 25.9-34.0 [facility] Comment on above: Performed By: #### A 1C #### [facility] [address] [place] [address] Dr. Marta Ashford MCHC (RBC) [Mass/Vol] 32.0 g/dL Normal 29.9-35.2 [facility] Comment on above: Performed By: #### A 1C #### [facility] [address] [place] [address] Dr. Marta Ashford MCV (RBC) [Entitic vol] 96.8 fL Critically high 80.0-94.0 [facility] Comment on above: Performed By: #### A 1C #### [facility] [address] [place] [address] Dr. Marta Ashford MONO # 0.7 103/ul Normal 0.3-0.8 [facility] Comment on above: Performed By: #### A 1C #### [facility] [address] [place] [address] Dr. Marta Ashford Monocytes/100 WBC (Bld) 7.8 % Normal 1.7-12.0 [facility] Comment on above: Performed By: #### A 1C #### [facility] [address] [place] [address] Dr. Marta Ashford NEUT # 5.1 103/ul Normal 1.4-6.5 [facility] Comment on above: Performed By: #### A 1C #### [facility] [address] [place] [address] Dr. Marta Ashford Neutrophils/100 WBC (Bld) 53.5 % Normal 43.0-75.0 [facility] Comment on above: Performed By: #### A 1C #### [facility] [address] [place] [address] Dr. Marta Ashford Platelet mean volume (Bld) [Entitic vol] 12.3 fL Normal 9.5-13.5 [facility] Comment on above: Performed By: #### A 1C #### [facility] [address] [place] [address] Dr. Marta Ashford PLT 170 103/ul Normal 150-450 [facility] Comment on above: Performed By: #### A 1C #### [facility] [address] [address] [address] Marta Ashford RBC 4.65 106/ul Critically low 4.70-6.10 [facility] Comment on above: Performed By: #### A 1C #### [facility] [address] [place] [address] Dr. Marta Ashford WBC 9.5 103/ul Normal 4.0-11.0 [facility] Comment on above: Performed By: #### A 1C #### [facility] [address] [place] [address] Dr. Marta Ashford DIRECT LDLon 09-10-2021 Cholesterol in LDL [Mass/Vol] 96 mg/dL Normal [facility] Comment on above: Performed By: #### C JIMENA #### [facility] [address] [place] [address] Dr. Marta Ashford DLDL NORMAL SEE BELOW Normal [facility] Comment on above: Result Comment: <100 mg/dl OPTIMAL 100 - 129 mg/dl NEAR OR ABOVE OPTIMAL 130 - 159 mg/dl BORDERLINE HIGH 160 - 189 mg/dl HIGH >190 mg/dl VERY HIGH Performed By: #### C JIMENA #### [facility] [address] [place] [address] Dr. Marta Ashford GLYCOHEMOGLOBIN A1Con 2021 ADA RECOMMENDATION SEE BELOW Normal [facility] Comment on above: Result Comment: ADA RECOMMENDED LIMIT 4.0 - 6.0 ADA THERAPEUTIC TARGET < 7.0 ACTION SUGGESTED > 7.0 Performed By: #### A 1C #### [facility] [address] [place] [address] Dr. Marta Ashford Glucose [Mass/Vol] 223 mg/dL Normal [facility] Comment on above: Performed By: #### A 1C #### [facility] [address] [address] [address] Marta Ashford HbA1c (Bld) [Mass fraction] 9.4 % Critically high 4.5-6.2 [facility] Comment on above: Performed By: #### A 1C #### [facility] [address] [address] [address] Marta Ashford LIPID PROFILEon 09-10-2021 CHOL-HDL RATIO NORM SEE BELOW Normal [facility] Comment on above: Result Comment: 3.3 - 4.4 LOW RISK 4.4 - 7.1 AVERAGE RISK 7.1 - 11.0 MODERATE RISK >11.0 HIGH RISK Performed By: #### C JIMENA #### [facility] [address] [address] [address] Marta Ashford Cholesterol [Mass/Vol] 209 mg/dL Critically high <=200 [facility] Comment on above: Performed By: #### Shira HESS #### [facility] [address] [address] [address] Marta Ashford Cholesterol in HDL [Mass/Vol] 34 mg/dL Critically low 40-60 [facility] Comment on above: Performed By: #### Shira HESS #### [facility] [address] [address] [address] Marta Ashford Cholesterol.total/Chol esterol in HDL [Mass ratio] 6.1 {ratio} Normal [facility] Comment on above: Performed By: #### Shira HESS #### [facility] [address] [address] [address] Marta Ashford HDL NORMAL > or = 60 mg/dl - LO W CARDIOVASCULAR RISK <40 mg/dl - HIGH CARDIOVASCULAR RISK Normal [facility] Comment on above: Performed By: #### Shira HESS #### [facility] [address] [place] [address] Dr. Marta Ashford LDL CALC NORMAL SEE BELOW Normal [facility] Comment on above: Result Comment: <100 mg/dl OPTIMAL 100 - 129 mg/dl NEAR OR ABOVE OPTIMAL 130 - 159 mg/dl BORDERLINE HIGH 160 - 189 mg/dl HIGH >190 mg/dl VERY HIGH Performed By: #### C JIMENA #### [facility] [address] [place] [address] Dr. Marta Ashford Triglyceride [Mass/Vol] 591 mg/dL Critically high <=150 [facility] Comment on above: Performed By: #### C JIMENA #### [facility] [address] [place] [address] Dr. Marta Ashford VLDL CALC 118.2 mg/dL Normal [facility] Comment on above: Performed By: #### C JIMENA #### [facility] [address] [place] [address] Dr. Marta Ashford LIVER PROFILEon 09-10-2021 Albumin [Mass/Vol] 3.6 g/dL Normal 3.4-5.0 [facility] Comment on above: Performed By: #### C JIMENA #### [facility] [address] [place] [address] Dr. Marta Ashford Albumin/Globulin [Mass ratio] 0.9 {ratio} Normal [facility] Comment on above: Performed By: #### C JIMENA #### [facility] [address] [place] [address] Dr. Marta Ashford ALP [Catalytic activity/Vol] 75 U/L Normal 46-116 [facility] Comment on above: Performed By: #### C JIMENA #### [facility] [address] [place] [address] Dr. Marta Ashford ALT [Catalytic activity/Vol] 40 U/L Normal 16-63 [facility] Comment on above: Performed By: #### C JIMENA #### [facility] [address] [place] [address] Dr. Marta Ashford AST [Catalytic activity/Vol] 24 U/L Normal 15-37 [facility] Comment on above: Performed By: #### C JIMENA #### [facility] [address] [place] [address] Dr. Marta Ashford BILI, CONJUGATED 0.1 mg/dL Normal 0.0-0.2 [facility] Comment on above: Performed By: #### C JIMENA #### [facility] [address] [address] [address] Marta Ashford Bilirubin [Mass/Vol] 0.3 mg/dL Normal 0.2-1.0 [facility] Comment on above: Performed By: #### C BCMAN #### [facility] [address] [address] [address] Marta Ashford Globulin (S) [Mass/Vol] 4.1 g/dL Normal [facility] Comment on above: Performed By: #### C BCMAN #### [facility] [address] [place] [address] Dr. Marta Ashford Protein [Mass/Vol] 7.7 g/dL Normal 6.1-8.2 [facility] Comment on above: Performed By: #### C BCVALERY #### [facility] [address] [place] [address] Dr. Marta Ashford PROF CHEM 8 (BAS METB)on Anion gap [Moles/Vol] 11.0 mmol/L Normal [facility] Comment on above: Performed By: #### C BCVALERY #### [facility] [address] [place] [address] Dr. Marta Ashford Calcium [Mass/Vol] 8.6 mg/dL Normal 8.5-10.1 [facility] Comment on above: Performed By: #### C BCVALERY #### [facility] [address] [place] [address] Dr. Marta Ashford Chloride [Moles/Vol] 99 mmol/L Normal 98-107 [facility] Comment on above: Performed By: #### C BCVALERY #### [facility] [address] [place] [address] Dr. Marta Ashford CO2 [Moles/Vol] 27.0 mmol/L Normal 21.0-32.0 [facility] Comment on above: Performed By: #### C BCVALERY #### [facility] [address] [place] [address] Dr. Marta Ashford Creatinine [Mass/Vol] 1.00 mg/dL Normal 0.70-1.30 [facility] Comment on above: Performed By: #### C BCVALERY #### [facility] [address] [address] [address] Marta Ashford EGFR-AF ENGLISH >60 Normal >=60 [facility] Comment on above: Performed By: #### C BCVALERY #### [facility] [address] [place] [address] Dr. Marta Ashford EGFR-NON AF ENGLISH >60 Normal >=60 [facility] Comment on above: Performed By: #### C BCMAN #### [facility] [address] [address] [address] Marta Ashford Glucose [Mass/Vol] 289 mg/dL Critically high 74-106 [facility] Comment on above: Performed By: #### C JIMENA #### [facility] [address] [place] [address] Dr. Marta Ashfodr Potassium [Moles/Vol] 4.0 mmol/L Normal 3.5-5.1 [facility] Comment on above: Performed By: #### C JIMENA #### [facility] [address] [place] [address] Dr. Marta Ashford Sodium [Moles/Vol] 133 mmol/L Critically low 136-145 Th [facility] Comment on above: Performed By: #### C JIMENA #### [facility] [address] [place] [address] Dr. Marta Ashford Urea nitrogen [Mass/Vol] 21.0 mg/dL Critically high 7.0-18.0 [facility] Comment on above: Performed By: #### C BCVALERY #### [facility] [address] [place] [address] Dr. Marta Ashford Urea nitrogen/Creatinine [Mass ratio] 21.0 mg/mg Normal [facility] Comment on above: Performed By: #### C JIMENA #### [facility] [address] [place] [address] Dr. Marta Ashford TSHon 09-10-2021 TSH 2.331 uIU/mL Normal 0.470-4.68 0 [facility] Comment on above: Performed By: #### C JIMENA #### [facility] [address] [place] [address] Dr. Marta Ashford TSH RANGE SEE BELOW Normal [facility] Comment on above: Result Comment: <0.3 4 UIU/ml HYPERTHYROID 0.34-5.60 UIU/ml EUTHYROID >5.60 UIU/ml HYPOTHYROID Performed By: #### C JIMENA #### [facility] [address] [place] [address] Dr. Marta Ashford BLOOD CULTURE ID/SENSon 08-09 Aerobe ID + Suscept Final report Abnormal [facility] Comment on above: Performed By: #### C XPOSBL #### [facility] [address] [place] [address] Dr. Marta Ashford Antimicrobial Susceptibility Comment Normal [facility] Comment on above: Result Comment: S [...] S Performed By: #### C XPOSBL #### [facility] [address] [place] [address] Dr. Marta Ashford Result 1 Comment Abnormal [facility] Comment on above: Result Comment: Esch erichia coli, identified by an automated biochemical system. Received aerobic bottle only. Performed By: #### C XPOSBL #### [facility] [address] [place] [address] Dr. Marta Ashford CBC AUTO DIFFon 08-18-2021 BASO # 0.1 103/ul Normal 0.0-0.1 [facility] Comment on above: Performed By: #### A 1C #### [facility] [address] [place] [address] Dr. Marta Ashford Basophils/100 WBC (Bld) 0.5 % Normal 0.2-2.0 [facility] Comment on above: Performed By: #### A 1C #### [facility] [address] [place] [address] Dr. Marta Ashford EO # 0.1 103/ul Normal 0.0-0.7 [facility] Comment on above: Performed By: #### A 1C #### [facility] [address] [place] [address] Dr. Marta Ashford Eosinophils/100 WBC (Bld) 0.8 % Critically low 0.9-7.0 [facility] Comment on above: Performed By: #### A 1C #### [facility] [address] [place] [address] Dr. Marta Ashford Erythrocyte distribution width (RBC) [Ratio] 12.8 % Normal 11.0-15.0 [facility] Comment on above: Performed By: #### A 1C #### [facility] [address] [place] [address] Dr. Marta Ashford Hematocrit (Bld) [Volume fraction] 40.1 % Critically low 42.0-54.0 [facility] Comment on above: Performed By: #### A 1C #### [facility] [address] [place] [address] Dr. Marta Ashford Hemoglobin (Bld) [Mass/Vol] 12.9 g/dL Critically low 14.0-18.0 [facility] Comment on above: Performed By: #### A 1C #### [facility] [address] [place] [address] Dr. Marta Ashford IG # 0.17 10e3/ul Critically high 0.00-0.03 [facility] Comment on above: Performed By: #### A 1C #### [facility] [address] [place] [address] Dr. Marta Ashford IG % 1.0 % Critically high 0.0-0.5 [facility] Comment on above: Performed By: #### A 1C #### [facility] [address] [place] [address] Dr. Marta Ashford LYMPH # 3.3 103/ul Normal 1.2-3.8 [facility] Comment on above: Performed By: #### A 1C #### [facility] [address] [place] [address] Dr. Marta Ashford Lymphocytes/100 WBC (Bld) 19.0 % Critically low 20.5-60.0 [facility] Comment on above: Performed By: #### A 1C #### [facility] [address] [place] [address] Dr. Marta Ashford MANUAL DIFF REQ NO Normal [facility] Comment on above: Performed By: #### A 1C #### [facility] [address] [place] [address] Dr. Marta Ashford MCH (RBC) [Entitic mass] 30.5 pg Normal 25.9-34.0 [facility] Comment on above: Performed By: #### A 1C #### [facility] [address] [place] [address] Dr. Marta Ashford MCHC (RBC) [Mass/Vol] 32.2 g/dL Normal 29.9-35.2 [facility] Comment on above: Performed By: #### A 1C #### [facility] [address] [place] [address] Dr. Marta Ashford MCV (RBC) [Entitic vol] 94.8 fL Critically high 80.0-94.0 [facility] Comment on above: Performed By: #### A 1C #### [facility] [address] [place] [address] Dr. Marta Ashford MONO # 1.2 103/ul Critically high 0.3-0.8 [facility] Comment on above: Performed By: #### A 1C #### [facility] [address] [place] [address] Dr. Marta Ashford Monocytes/100 WBC (Bld) 6.7 % Normal 1.7-12.0 [facility] Comment on above: Performed By: #### A 1C #### [facility] [address] [place] [address] Dr. Marta Ashford NEUT # 12.5 103/ul Critically high 1.4-6.5 [facility] Comment on above: Performed By: #### A 1C #### [facility] [address] [address] [address] Marta Ashford Neutrophils/100 WBC (Bld) 72.0 % Normal 43.0-75.0 [facility] Comment on above: Performed By: #### A 1C #### [facility] [address] [address] [address] Marta Ashford Platelet mean volume (Bld) [Entitic vol] 11.8 fL Normal 9.5-13.5 [facility] Comment on above: Performed By: #### A 1C #### [facility] [address] [address] [address] Marta Ashford PLT 149 103/ul Critically low 150-450 [facility] Comment on above: Performed By: #### A 1C #### [facility] [address] [place] [address] Dr. Marta Ashford RBC 4.23 106/ul Critically low 4.70-6.10 [facility] Comment on above: Performed By: #### A 1C #### [facility] [address] [address] [address] Marta Ashford WBC 17.4 103/ul Critically high 4.0-11.0 [facility] Comment on above: Performed By: #### A 1C #### [facility] [address] [place] [address] Dr. Marta Ashford CULTURE URINEon 08-18-2021 CULTURE [...] Trimethoprim/Sulfamethoxazo le <=20 S F Normal [facility] Comment on above: Performed By: #### A 1C #### [facility] [address] [address] [address] Marta Ashford PH VENOUS BLOODon 08-18-2021 PCO2 VENOUS 36.1 mmHg Critically low 40.0-52.0 [facility] Comment on above: Performed By: #### A 1C #### [facility] [address] [place] [address] Dr. Marta Ashford pH VENOUS 7.452 Critically high 7.330-7.43 0 [facility] Comment on above: Performed By: #### A 1C #### [facility] [address] [place] [address] Dr. Marta Ashford POINT OF CARE GLUCOSEon 08-09 Glucose [Mass/Vol] 276 mg/dL Critically high 74-106 T [facility] Comment on above: Performed By: #### P OCGLUC #### [facility] [address] [place] [address] Dr. Marta Ashford PROF CHEM 8 (BAS METB)on Anion gap [Moles/Vol] 12.5 mmol/L Normal [facility] Comment on above: Performed By: #### P HVEN #### [facility] [address] [place] [address] Dr. Marta Ashford Calcium [Mass/Vol] 8.5 mg/dL Normal 8.5-10.1 [facility] Comment on above: Performed By: #### P HVEN #### [facility] [address] [place] [address] Dr. Marta Ashford Chloride [Moles/Vol] 105 mmol/L Normal 98-107 [facility] Comment on above: Performed By: #### P HVEN #### [facility] [address] [place] [address] Dr. Marta Ashford CO2 [Moles/Vol] 25.5 mmol/L Normal 22.0-30.0 [facility] Comment on above: Performed By: #### P HVEN #### [facility] [address] [place] [address] Dr. Marta Ashford Creatinine [Mass/Vol] 0.90 mg/dL Normal 0.66-1.25 [facility] Comment on above: Performed By: #### P HVEN #### [facility] [address] [place] [address] Dr. Marta Ashford EGFR-AF ENGLISH >60 Normal >=60 [facility] Comment on above: Performed By: #### P HVEN #### [facility] [address] [place] [address] Dr. Marta Ashford EGFR-NON AF ENGLISH >60 Normal >=60 [facility] Comment on above: Performed By: #### P HVEN #### [facility] [address] [place] [address] Dr. Marta Ashford Glucose [Mass/Vol] 239 mg/dL Critically high 74-106 [facility] Comment on above: Performed By: #### P HVEN #### [facility] [address] [place] [address] Dr. Marta Ashford Potassium [Moles/Vol] 4.0 mmol/L Normal 3.4-5.0 [facility] Comment on above: Performed By: #### P HVEN #### [facility] [address] [place] [address] Dr. Marta Ashford Sodium [Moles/Vol] 139 mmol/L Normal 137-145 [facility] Comment on above: Performed By: #### P HVEN #### [facility] [address] [place] [address] Dr. Marta Ashford Urea nitrogen [Mass/Vol] 13.0 mg/dL Normal 7.0-18.0 [facility] Comment on above: Performed By: #### P HVEN #### [facility] [address] [place] [address] Dr. Marta Ashford Urea nitrogen/Creatinine [Mass ratio] 14.4 mg/mg Normal [facility] Comment on above: Performed By: #### P HVEN #### [facility] [address] [place] [address] Dr. Marta Ashford CBC W MANUAL DIFFon 04-09-20 22 ATYPICAL LYMPH # Normal [facility] Comment on above: Performed By: #### C BCMAN #### [facility] [address] [place] [address] Dr. Marta Ashford ATYPICAL LYMPH % Normal [facility] Comment on above: Performed By: #### C BCMAN #### [facility] [address] [place] [address] Dr. Marta Ashford BAND # 2.7 103/ul Critically high 0.0-0.3 [facility] Comment on above: Performed By: #### C BCMAN #### [facility] [address] [place] [address] Dr. Marta Ashford BAND % 15 % Critically high 0-5 [facility] Comment on above: Performed By: #### C BCMAN #### [facility] [address] [place] [address] Dr. Marta Ashford BASOM # 0.00 103/ul Normal 0.00-0.10 [facility] Comment on above: Performed By: #### C BCVALERY #### [facility] [address] [place] [address] Dr. Marta Ashford BASOM % 0.0 % Critically low 0.2-2.0 [facility] Comment on above: Performed By: #### C BCVALERY #### [facility] [address] [place] [address] Dr. Marta Ashford BLAST # Normal [facility] Comment on above: Performed By: #### C BCVALERY #### [facility] [address] [place] [address] Dr. Marta Ashford BLAST % Normal [facility] Comment on above: Performed By: #### C BCVALERY #### [facility] [address] [place] [address] Dr. Marta Ashford CORRECTED WBC Normal 4.0-11.0 [facility] Comment on above: Performed By: #### C BCMAN #### [facility] [address] [place] [address] Dr. Marta Ashford EOS # 0.00 103/ul Normal 0.00-0.70 [facility] Comment on above: Performed By: #### C JIMENA #### [facility] [address] [address] [address] Marta Ashford EOS% 0.0 % Critically low 0.9-7.0 [facility] Comment on above: Performed By: #### C JIMENA #### [facility] [address] [address] [address] Marta Ashford HCT 37.5 % Critically low 42.0-54.0 [facility] Comment on above: Performed By: #### C JIMENA #### [facility] [address] [address] [address] Marta Ashford HGB 12.1 g/dl Critically low 14.0-18.0 [facility] Comment on above: Performed By: #### C JIMENA #### [facility] [address] [address] [address] Marta Ashford LYMPHM # 3.20 103/ul Normal 1.20-3.80 [facility] Comment on above: Performed By: #### C JIMENA #### [facility] [address] [place] [address] Dr. Marta Ashford LYMPHM% 18.0 % Critically low 20.5-60.0 [facility] Comment on above: Performed By: #### C JIMENA #### [facility] [address] [address] [address] Marta Ashford MCH 31.2 pg Normal 25.9-34.0 [facility] Comment on above: Performed By: #### C JIMENA #### [facility] [address] [place] [address] Dr. Marta Ashford MCHC 32.3 g/dl Normal 29.9-35.2 [facility] Comment on above: Performed By: #### C JIMENA #### [facility] [address] [place] [address] Dr. Marta Ashford MCV 96.6 fL Critically high 80.0-94.0 [facility] Comment on above: Performed By: #### C JIMENA #### [facility] [address] [place] [address] Dr. Marta Ashford METAMYELOCYTE # Normal [facility] Comment on above: Performed By: #### C JIMENA #### [facility] [address] [address] [address] Marta Ashford METAMYELOCYTE % Normal [facility] Comment on above: Performed By: #### C JIMNEA #### [facility] [address] [address] [address] Marta Ashford MONOM# 1.25 103/ul Critically high 0.30-0.80 [facility] Comment on above: Performed By: #### C JIMENA #### [facility] [address] [address] [address] Marta Ashford MONOM% 7.0 % Normal 1.7-12.0 [facility] Comment on above: Performed By: #### C JIMENA #### [facility] [address] [place] [address] Dr. Marta Ashford MPV 11.4 fL Normal 9.5-13.5 [facility] Comment on above: Performed By: #### C JIMENA #### [facility] [address] [address] [address] Marta Ashford MYELOCYTE # Normal [facility] Comment on above: Performed By: #### C JIMENA #### [facility] [address] [place] [address] Dr. Marta Ashford MYELOCYTE % Normal [facility] Comment on above: Performed By: #### C JIMENA #### [facility] [address] [place] [address] Dr. Marta Ashford NRBC Normal [facility] Comment on above: Performed By: #### C BCVALERY #### [facility] [address] [address] [address] Marta Ashford PLT 106 103/ul Critically low 150-450 [facility] Comment on above: Performed By: #### C JIMENA #### [facility] [address] [address] [address] Marta Ashford RBC 3.88 106/ul Critically low 4.70-6.10 [facility] Comment on above: Performed By: #### C JIMENA #### [facility] [address] [address] [address] Marta Ashford RDW 13.1 % Normal 11.0-15.0 [facility] Comment on above: Performed By: #### C JIMENA #### [facility] [address] [address] [address] Marta Ashford SEG # 10.68 103/ul Critically high 1.40-6.50 [facility] Comment on above: Performed By: #### C JIMENA #### [facility] [address] [address] [address] Marta Ashford SEG % 60.0 % Normal 43.0-75.0 [facility] Comment on above: Performed By: #### C JIMENA #### [facility] [address] [address] [address] Marta Ashford WBC 17.8 103/ul Critically high 4.0-11.0 [facility] Comment on above: Performed By: #### C JIMENA #### [facility] [address] [address] [address] Marta Ashford PH VENOUS BLOODon 08-17-2021 PCO2 VENOUS 37.5 mmHg Critically low 40.0-52.0 [facility] Comment on above: Performed By: #### P HVEN #### [facility] [address] [address] [address] Marta Ashford pH VENOUS 7.390 Normal 7.330-7.43 0 [facility] Comment on above: Performed By: #### P HVEN #### [facility] [address] [address] [address] Marta Ashford POINT OF CARE GLUCOSEon 04-0 Glucose [Mass/Vol] 261 mg/dL Critically high 74-106 [facility] Comment on above: Performed By: #### A 1C #### [facility] [address] [address] [address] Marta Ashford Glucose [Mass/Vol] 213 mg/dL Critically high 74-106 [facility] Comment on above: Performed By: #### A 1C #### [facility] [address] [address] [address] Marta Ashford Glucose [Mass/Vol] 305 mg/dL Critically high 74-106 [facility] Comment on above: Performed By: #### A 1C #### [facility] [address] [place] [address] Dr. Marta Ashford PROF CHEM 8 (BAS METB)on Anion gap [Moles/Vol] 13.8 mmol/L Normal [facility] Comment on above: Performed By: #### A 1C #### [facility] [address] [place] [address] Dr. aMrta Ashford Calcium [Mass/Vol] 7.3 mg/dL Critically low 8.5-10.1 [facility] Comment on above: Performed By: #### A 1C #### [facility] [address] [place] [address] Dr. Marta Ashford Chloride [Moles/Vol] 108 mmol/L Critically high 98-107 [facility] Comment on above: Performed By: #### A 1C #### [facility] [address] [place] [address] Dr. Marta Ashford CO2 [Moles/Vol] 22.2 mmol/L Normal 22.0-30.0 [facility] Comment on above: Performed By: #### A 1C #### [facility] [address] [place] [address] Dr. Marta Ashford Creatinine [Mass/Vol] 0.95 mg/dL Normal 0.66-1.25 [facility] Comment on above: Performed By: #### A 1C #### [facility] [address] [place] [address] Dr. Marta Ashford EGFR-AF ENGLISH >60 Normal >=60 [facility] Comment on above: Performed By: #### A 1C #### [facility] [address] [place] [address] Dr. Marta Ashford EGFR-NON AF ENGLISH >60 Normal >=60 [facility] Comment on above: Performed By: #### A 1C #### [facility] [address] [place] [address] Dr. Marta Ashford Glucose [Mass/Vol] 181 mg/dL Critically high 74-106 [facility] Comment on above: Performed By: #### A 1C #### [facility] [address] [place] [address] Dr. Marta Ashford Potassium [Moles/Vol] 4.0 mmol/L Normal 3.4-5.0 [facility] Comment on above: Performed By: #### A 1C #### [facility] [address] [place] [address] Dr. Marta Ashford Sodium [Moles/Vol] 140 mmol/L Normal 137-145 [facility] Comment on above: Performed By: #### A 1C #### [facility] [address] [place] [address] Dr. Marta Ashford Urea nitrogen [Mass/Vol] 17.0 mg/dL Normal 7.0-18.0 [facility] Comment on above: Performed By: #### A 1C #### [facility] [address] [place] [address] Dr. Marta Ashford Urea nitrogen/Creatinine [Mass ratio] 17.9 mg/mg [facility] Comment on above: Performed By: #### A 1C #### [facility] [address] [place] [address] Dr. Marta Ashford BLOOD CULTURE ID PANELon A. baumannii Not detected [facility] Comment on above: Performed By: #### A 1C #### [facility] [address] [place] [address] Dr. Marta Ashford BCID CONTROLS PASSED Normal [facility] Comment on above: Performed By: #### A 1C #### [facility] [address] [place] [address] Dr. Marta Ashford BCIDBTHD BLOOD CULTURE BOTTLE INFORMATION Normal [facility] Comment on above: Performed By: #### A 1C #### [facility] [address] [place] [address] Dr. Marta Ashford BCIDHD1 ANTIMICROBIAL RESIST ANCE GENES Normal [facility] Comment on above: Performed By: #### A 1C #### [facility] [address] [place] [address] Dr. Marta Ashford BCIDHD2 SEE BELOW [facility] Comment on above: Result Comment: KPC- carbapenem resistance gene, mecA- methecillin resistance gene, van A/B- vancomycin resistance gene Note: Antimicrobial resitance can occur via multiple mechanisms. A Not Detected result for the [employer] antomicrobial resistance gene assays does not indicate antimicrobial susceptibility. Subculturing is required for specis identificationand susceptibility testing of isolates. Performed By: #### A 1C #### [facility] [address] [place] [address] Dr. Marta Ashford BCIDHD3 Positive [facility] Comment on above: Performed By: #### A 1C #### [facility] [address] [place] [address] Dr. Marta Ashford BCIDHD4 Negative [facility] Comment on above: Performed By: #### A 1C #### [facility] [address] [place] [address] Dr. Marta Ashford BCIDHD5 YEAST [facility] Comment on above: Performed By: #### A 1C #### [facility] [address] [place] [address] Dr. Marta Ashford BCIDHD6 SEE BELOW [facility] Comment on above: Result Comment: Note : All genus and species BCID [employer] results will be verified post subculturing via Maldi-Tof MS testing methodology. Performed By: #### A 1C #### [facility] [address] [place] [address] Dr. Marta Ashford Bottle Set: Set 2 [facility] Comment on above: Performed By: #### A 1C #### [facility] [address] [place] [address] Dr. Marta Ashford Bottle: Aerobic Normal [facility] Comment on above: Performed By: #### A 1C #### [facility] [address] [place] [address] Dr. Marta Ashford Surekha albicans Not detected [facility] Comment on above: Performed By: #### A 1C #### [facility] [address] [place] [address] Dr. Marta Ashford Surekha glabrata Not detected Normal [facility] Comment on above: Performed By: #### A 1C #### [facility] [address] [address] [address] Marta Ashford Surekha Krusei Not detected Normal [facility] Comment on above: Performed By: #### A 1C #### [facility] [address] [address] [address] Marta Ashford Surekha Parapsilosis Not detected Normal [facility] Comment on above: Performed By: #### A 1C #### [facility] [address] [place] [address] Dr. Marta Ashford Surekha Tropicalis Not detected Normal [facility] Comment on above: Performed By: #### A 1C #### [facility] [address] [place] [address] Dr. Marta Ashford E. Cloacae complex Not detected Normal [facility] Comment on above: Performed By: #### A 1C #### [facility] [address] [place] [address] Dr. Marta Ashford Enterobacteriaceae Detected Critically abnormal [facility] Comment on above: Performed By: #### A 1C #### [facility] [address] [place] [address] Dr. Marta Ashford Enterococcus Not detected Normal [facility] Comment on above: Performed By: #### A 1C #### [facility] [address] [place] [address] Dr. Marta Ashford Escheria coli Detected Critically abnormal [facility] Comment on above: Performed By: #### A 1C #### [facility] [address] [place] [address] Dr. Marta Ashford K. oxytoca Not detected Normal [facility] Comment on above: Performed By: #### A 1C #### [facility] [address] [place] [address] Dr. Marta Ashford K. pneumoniae Not detected Normal [facility] Comment on above: Performed By: #### A 1C #### [facility] [address] [place] [address] Dr. Marta Ashford KPC Resistant Gene Not detected Normal [facility] Comment on above: Performed By: #### A 1C #### [facility] [address] [place] [address] Dr. Marta Ashford List. monocytogenes Not detected Normal [facility] Comment on above: Performed By: #### A 1C #### [facility] [address] [place] [address] Dr. Marta Ashford mecA Resistant Gene Not Applicable Normal [facility] Comment on above: Performed By: #### A 1C #### [facility] [address] [place] [address] Dr. Marta Ashford Proteus Not detected Normal [facility] Comment on above: Performed By: #### A 1C #### [facility] [address] [place] [address] Dr. Marta Ashford Pseud. aeruginosa Not detected Normal [facility] Comment on above: Performed By: #### A 1C #### [facility] [address] [place] [address] Dr. Marta Ashford Seratia marcescens Not detected Normal [facility] Comment on above: Performed By: #### A 1C #### [facility] [address] [place] [address] Dr. Marta Ashford Site: left hand Normal [facility] Comment on above: Performed By: #### A 1C #### [facility] [address] [place] [address] Dr. Marta Ashford Staph. aureus Not detected Normal [facility] Comment on above: Performed By: #### A 1C #### [facility] [address] [place] [address] Dr. Marta Ashford Staphylococcus Not detected Normal [facility] Comment on above: Performed By: #### A 1C #### [facility] [address] [place] [address] Dr. Marta Ashford Strep. agalactiae Not detected Normal [facility] Comment on above: Performed By: #### A 1C #### [facility] [address] [place] [address] Dr. Marta Ashford Strep. pneumoniae Not detected Normal [facility] Comment on above: Performed By: #### A 1C #### [facility] [address] [place] [address] Dr. Marta Ashford Strep. pyogenes Not detected Normal [facility] Comment on above: Performed By: #### A 1C #### [facility] [address] [place] [address] Dr. Marta Ashford Streptococcus Not detected Normal [facility] Comment on above: Performed By: #### A 1C #### [facility] [address] [place] [address] Dr. Marta Ashford Cheyenne/B Resist. Gene Not Applicable Normal [facility] Comment on above: Performed By: #### A 1C #### [facility] [address] [place] [address] Dr. Marta Ashford CARDIAC PAOLO 3-6on 2 CK [Catalytic activity/Vol] 112 U/L Normal 55-170 [facility] Comment on above: Performed By: #### P HVEN #### [facility] [address] [place] [address] Dr. Marta Ashford CK.MB [Mass/Vol] 1.13 ng/mL Normal <=2.37 [facility] Comment on above: Performed By: #### P HVEN #### [facility] [address] [place] [address] Dr. Marta Ashford HSTROP 283.1 pg/mL Critically high 4.0-42.2 [facility] Comment on above: Result Comment: CUT- OFF POINTS HAVE BEEN ESTABLISHED BASED ON THE FOURTH UNIVERSAL DEFINITIONS OF MYOCARDIAL INFARCTION. THE UPPER REFERENCE LIMIT (URL) OF TROPONIN, DEFINED THE 99TH PERCENTILE OF cTnI DISTRIBUTION IN A REFERENCE POPULATION, HAS BEEN CONFIRMED THE DECISION THRESHOLD FOR MD DIAGNOSIS. TEST REPEATED CRITICAL VALUE VERIFIED Performed By: #### P HVEN #### [facility] [address] [place] [address] Dr. Marta Ashford CK [Catalytic activity/Vol] 98 U/L Normal 55-170 [facility] Comment on above: Performed By: #### A 1C #### [facility] [address] [place] [address] Dr. Marta Ashford CK.MB [Mass/Vol] 1.08 ng/mL Normal <=2.37 [facility] Comment on above: Performed By: #### A 1C #### [facility] [address] [place] [address] Dr. Marta Ashford HSTROP 310.8 pg/mL Critically high 4.0-42.2 [facility] Comment on above: Result Comment: CUT- OFF POINTS HAVE BEEN ESTABLISHED BASED ON THE FOURTH UNIVERSAL DEFINITIONS OF MYOCARDIAL INFARCTION. THE UPPER REFERENCE LIMIT (URL) OF TROPONIN, DEFINED THE 99TH PERCENTILE OF cTnI DISTRIBUTION IN A REFERENCE POPULATION, HAS BEEN CONFIRMED THE DECISION THRESHOLD FOR MD DIAGNOSIS. test repeated Performed By: #### A 1C #### [facility] [address] [place] [address] Dr. Marta Ashford CARDIAC PAOLO ADMITon 022 CK [Catalytic activity/Vol] 100 U/L Normal 55-170 [facility] Comment on above: Performed By: #### Shira HESS #### [facility] [address] [place] [address] Dr. Marta Ashford CK.MB [Mass/Vol] 1.20 ng/mL Normal <=2.37 [facility] Comment on above: Performed By: #### C JIMENA #### [facility] [address] [place] [address] Dr. Marta Ashford HSTROP 51.6 pg/mL Critically high 4.0-42.2 [facility] Comment on above: Result Comment: CUT- OFF POINTS HAVE BEEN ESTABLISHED BASED ON THE FOURTH UNIVERSAL DEFINITIONS OF MYOCARDIAL INFARCTION. THE UPPER REFERENCE LIMIT (URL) OF TROPONIN, DEFINED THE 99TH PERCENTILE OF cTnI DISTRIBUTION IN A REFERENCE POPULATION, HAS BEEN CONFIRMED THE DECISION THRESHOLD FOR MD DIAGNOSIS. Performed By: #### C JIMENA #### [facility] [address] [place] [address] Dr. Marta Ashford ANGELICA 77.0 ng/mL Normal <=121.0 [facility] Comment on above: Performed By: #### C JIMENA #### [facility] [address] [address] [address] Marta Ashford CBC AUTO DIFFon 08-16-2021 BASO # 0.0 103/ul Normal 0.0-0.1 [facility] Comment on above: Performed By: #### A 1C #### [facility] [address] [place] [address] Dr. Marta Ashford Basophils/100 WBC (Bld) 0.2 % Normal 0.2-2.0 [facility] Comment on above: Performed By: #### A 1C #### [facility] [address] [place] [address] Dr. Marta Ashford EO # 0.0 103/ul Normal 0.0-0.7 [facility] Comment on above: Performed By: #### A 1C #### [facility] [address] [place] [address] Dr. Marta Ashford Eosinophils/100 WBC (Bld) 0.2 % Critically low 0.9-7.0 [facility] Comment on above: Performed By: #### A 1C #### [facility] [address] [place] [address] Dr. Marta Ashford Erythrocyte distribution width (RBC) [Ratio] 12.8 % Normal 11.0-15.0 [facility] Comment on above: Performed By: #### A 1C #### [facility] [address] [place] [address] Dr. Marta Ashford Hematocrit (Bld) [Volume fraction] 38.4 % Critically low 42.0-54.0 [facility] Comment on above: Performed By: #### A 1C #### [facility] [address] [place] [address] Dr. Marta Ashford Hemoglobin (Bld) [Mass/Vol] 12.7 g/dL Critically low 14.0-18.0 [facility] Comment on above: Performed By: #### A 1C #### [facility] [address] [place] [address] Dr. Marta Ashford IG # 0.03 10e3/ul Normal 0.00-0.03 [facility] Comment on above: Performed By: #### A 1C #### [facility] [address] [address] [address] Marta Ashford IG % 0.6 % Critically high 0.0-0.5 [facility] Comment on above: Performed By: #### A 1C #### [facility] [address] [address] [address] Marta Ashford LYMPH # 0.5 103/ul Critically low 1.2-3.8 [facility] Comment on above: Performed By: #### A 1C #### [facility] [address] [place] [address] Dr. Marta Ashford Lymphocytes/100 WBC (Bld) 11.1 % Critically low 20.5-60.0 [facility] Comment on above: Result Comment: dif. not rqd. same as 08/16/21 Performed By: #### A 1C #### [facility] [address] [place] [address] Dr. Marta Ashford MANUAL DIFF REQ NO Normal [facility] Comment on above: Performed By: #### A 1C #### [facility] [address] [address] [address] Marta Ashford MCH (RBC) [Entitic mass] 31.1 pg Normal 25.9-34.0 [facility] Comment on above: Performed By: #### A 1C #### [facility] [address] [place] [address] Dr. Marta Ashford MCHC (RBC) [Mass/Vol] 33.1 g/dL Normal 29.9-35.2 [facility] Comment on above: Performed By: #### A 1C #### [facility] [address] [place] [address] Dr. Marta Ashford MCV (RBC) [Entitic vol] 93.9 fL Normal 80.0-94.0 [facility] Comment on above: Performed By: #### A 1C #### [facility] [address] [place] [address] Dr. Marta Ashford MONO # 0.0 103/ul Critically low 0.3-0.8 [facility] Comment on above: Performed By: #### A 1C #### [facility] [address] [place] [address] Dr. Marta Ashford Monocytes/100 WBC (Bld) 0.6 % Critically low 1.7-12.0 [facility] Comment on above: Performed By: #### A 1C #### [facility] [address] [address] [address] Marta Ashford NEUT # 4.2 103/ul Normal 1.4-6.5 [facility] Comment on above: Performed By: #### A 1C #### [facility] [address] [place] [address] Dr. Marta Ashford Neutrophils/100 WBC (Bld) 87.3 % Critically high 43.0-75.0 [facility] Comment on above: Performed By: #### A 1C #### [facility] [address] [place] [address] Dr. Marta Ashford Platelet mean volume (Bld) [Entitic vol] 11.1 fL Normal 9.5-13.5 [facility] Comment on above: Performed By: #### A 1C #### [facility] [address] [place] [address] Dr. Marta Ashford PLT 114 103/ul Critically low 150-450 [facility] Comment on above: Performed By: #### A 1C #### [facility] [address] [place] [address] Dr. Marta Ashford RBC 4.09 106/ul Critically low 4.70-6.10 [facility] Comment on above: Performed By: #### A 1C #### [facility] [address] [place] [address] Dr. Marta Ashford WBC 4.8 103/ul Normal 4.0-11.0 [facility] Comment on above: Performed By: #### A 1C #### [facility] [address] [place] [address] Dr. Marta Ashford CBC W MANUAL DIFFon 08-17-19 22 ATYPICAL LYMPH # Normal [facility] Comment on above: Performed By: #### A 1C #### [facility] [address] [place] [address] Dr. Marta Ashford ATYPICAL LYMPH % Normal [facility] Comment on above: Performed By: #### A 1C #### [facility] [address] [place] [address] Dr. Marta Ashford BAND # Normal 0.0-0.3 [facility] Comment on above: Performed By: #### A 1C #### [facility] [address] [place] [address] Dr. Marta Ashford BAND % Normal 0-5 [facility] Comment on above: Performed By: #### A 1C #### [facility] [address] [place] [address] Dr. Marta Ashford BASOM # 0.00 103/ul Normal 0.00-0.10 [facility] Comment on above: Performed By: #### A 1C #### [facility] [address] [place] [address] Dr. Marta Ashford BASOM % 0.0 % Critically low 0.2-2.0 [facility] Comment on above: Performed By: #### A 1C #### [facility] [address] [place] [address] Dr. Marta Ashford BLAST # Normal [facility] Comment on above: Performed By: #### A 1C #### [facility] [address] [place] [address] Dr. Marta Ashford BLAST % Normal [facility] Comment on above: Performed By: #### A 1C #### [facility] [address] [place] [address] Dr. Marta Ashford CORRECTED WBC Normal 4.0-11.0 [facility] Comment on above: Performed By: #### A 1C #### [facility] [address] [place] [address] Dr. Marta Ashford EOS # 0.03 103/ul Normal 0.00-0.70 [facility] Comment on above: Performed By: #### A 1C #### [facility] [address] [place] [address] Dr. Marta Ashford EOS% 1.0 % Normal 0.9-7.0 [facility] Comment on above: Performed By: #### A 1C #### [facility] [address] [place] [address] Dr. Marta Ashford HCT 44.0 % Normal 42.0-54.0 [facility] Comment on above: Performed By: #### A 1C #### [facility] [address] [place] [address] Dr. Marta Ashford HGB 14.5 g/dl Normal 14.0-18.0 [facility] Comment on above: Performed By: #### A 1C #### [facility] [address] [place] [address] Dr. Marta Ashford LYMPHM # 0.90 103/ul Critically low 1.20-3.80 [facility] Comment on above: Performed By: #### A 1C #### [facility] [address] [place] [address] Dr. Marta Ashford LYMPHM% 32.0 % Normal 20.5-60.0 [facility] Comment on above: Performed By: #### A 1C #### [facility] [address] [place] [address] Dr. Marta Ashford MCH 31.2 pg Normal 25.9-34.0 [facility] Comment on above: Performed By: #### A 1C #### [facility] [address] [place] [address] Dr. Marta Ashford MCHC 33.0 g/dl Normal 29.9-35.2 [facility] Comment on above: Performed By: #### A 1C #### [facility] [address] [place] [address] Dr. Marta Ashford MCV 94.6 fL Critically high 80.0-94.0 [facility] Comment on above: Performed By: #### A 1C #### [facility] [address] [place] [address] Dr. Marta Ashford METAMYELOCYTE # Normal [facility] Comment on above: Performed By: #### A 1C #### [facility] [address] [place] [address] Dr. Marta Ashford METAMYELOCYTE % Normal [facility] Comment on above: Performed By: #### A 1C #### [facility] [address] [place] [address] Dr. Marta Ashford MONOM# 0.06 103/ul Critically low 0.30-0.80 [facility] Comment on above: Performed By: #### A 1C #### [facility] [address] [place] [address] Dr. Marta Ashford MONOM% 2.0 % Normal 1.7-12.0 [facility] Comment on above: Performed By: #### A 1C #### [facility] [address] [place] [address] Dr. Marta Ashford MPV 10.8 fL Normal 9.5-13.5 [facility] Comment on above: Performed By: #### A 1C #### [facility] [address] [place] [address] Dr. Marta Ashford MYELOCYTE # Normal [facility] Comment on above: Performed By: #### A 1C #### [facility] [address] [place] [address] Dr. Marta Ashford MYELOCYTE % Normal [facility] Comment on above: Performed By: #### A 1C #### [facility] [address] [place] [address] Dr. Marta Ashford NRBC Normal [facility] Comment on above: Performed By: #### A 1C #### [facility] [address] [place] [address] Dr. Marta Ashford PLT 129 103/ul Critically low 150-450 [facility] Comment on above: Performed By: #### A 1C #### [facility] [address] [place] [address] Dr. Marta Ashford RBC 4.65 106/ul Critically low 4.70-6.10 [facility] Comment on above: Performed By: #### A 1C #### [facility] [address] [place] [address] Dr. Marta Ashford RDW 12.9 % Normal 11.0-15.0 [facility] Comment on above: Performed By: #### A 1C #### [facility] [address] [place], [place] [address] Dr. Marta Ashford SEG # 1.82 103/ul Normal 1.40-6.50 [facility] Comment on above: Performed By: #### A 1C #### [facility] [address] [place], [place] [address] [address]. Marta Ashford SEG % 65.0 % Normal 43.0-75.0 [facility] Comment on above: Performed By: #### A 1C #### [facility] [address] [place], [place] [address] [address]. Marta Ashford WBC 2.8 103/ul Critically low 4.0-11.0 [facility] Comment on above: Performed By: #### A 1C #### [facility] [address] [place], [place] [address] ABD/PELVIS WO CONon [...] ROVERTO GREENFIELD Date: 2021-08-16 05:21 Normal [facility] CULTURE BLOODon 08-16-2021 Microscopic examination of blood, culture Culture Observations: No growth at 5 days. Normal [facility] Comment on above: Performed By: #### B LDCX2 #### [facility] [address] [place] [address] Dr. Marta Ashford Microscopic examination of blood, culture Culture Observations: No growth at 5 days. Normal [facility] Comment on above: Performed By: #### A 1C #### [facility] [address] [place] [address] Dr. Marta Ashford Covid-19 PCR (CVDTBH)on SARS-CoV-2 (COVID-19) RNA NORMA+probe Ql (Unsp spec) Not detected Normal NOT DETECTED [facility] Comment on above: Result Comment: When diagnostic testing is negative, the possibility of a false negative should be considered in the context of a patient's recent exposures and the presence of clinical signs and symptoms consistent with SARS-CoV-2. This test is not yet approved or cleared by the [place] Food and Drug Administration (FDA). This test was developed by [employer], [place], [place]. The performance characteristics of this test were validated by [facility]. The results are not intended to be used as the sole means for clinical diagnosis or patient management decisions. [facility] is authorized under Clinical Laboratory Improvement [...] for this test is supported by the [place] of Health and Human Service's declaration that [...] used). Performed By: #### A 1C #### [facility] [address] [place] [address] Dr. Marta Ashford DRUG SCREEN RAPID (URINE)on 08-16-2021 AMP Negative Normal NEGATIVE [facility] Comment on above: Performed By: #### P HVEN #### [facility] [address] [place] [address] Dr. Marta Ashford BAR Negative Normal NEGATIVE [facility] Comment on above: Performed By: #### P HVEN #### [facility] [address] [place] [address] Dr. Marta Ashford BUP Negative Normal NEGATIVE [facility] Comment on above: Performed By: #### P HVEN #### [facility] [address] [place] [address] Dr. Marta Ashford BZO Negative Normal NEGATIVE [facility] Comment on above: Performed By: #### P HVEN #### [facility] [address] [place] [address] Dr. Marta Ashford ROME Negative Normal NEGATIVE [facility] Comment on above: Performed By: #### P HVEN #### [facility] [address] [place] [address] Dr. Marta Ashford CUT-OFFS SEE BELOW Normal [facility] Comment on above: Result Comment: AMP (Amphetamine): 500ng/mL, BAR (Barbituates): 200 ng/mL, BZO (Benzodiazepines): 150 ng/mL, BUP (Buprenorphine): 10 ng/mL, ROME (Cocaine): 150 ng/mL, mAMP (Methamphetamine): 500 ng/mL, MTD (Methadone): 200 ng/mL, OPI (Opiates): 100 ng/mL, OXY (Oxycodone): 100 ng/mL, PCP (Phencyclidine): 25 ng/mL, PPX (Propoxyphene): 300 ng/mL, THC (Cannabinoids): 50 ng/mL, TCA (Trycyclic Antidepressants): 300 ng/mL Performed By: #### P HVEN #### [facility] [address] [place] [address] Dr. Marta Ashford DRUG CUT HEADER DRUG CLASS TEST SYST EM CUT-OFF CONCENTRATIONS ARE FOLLOWS: Normal [facility] Comment on above: Performed By: #### P HVEN #### [facility] [address] [place] [address] Dr. Marta Ashford mAMP Negative Normal NEGATIVE [facility] Comment on above: Performed By: #### P HVEN #### [facility] [address] [place] [address] Dr. Marta Ashford MTD Negative Normal NEGATIVE [facility] Comment on above: Performed By: #### P HVEN #### [facility] [address] [place] [address] Dr. Marta Ashford OPI Negative Normal NEGATIVE [facility] Comment on above: Performed By: #### P HVEN #### [facility] [address] [place] [address] Dr. Marta Ashford OXY Negative Normal NEGATIVE [facility] Comment on above: Performed By: #### P HVEN #### [facility] [address] [place] [address] Dr. Marta Ashford PCP Negative Normal NEGATIVE [facility] Comment on above: Performed By: #### P HVEN #### [facility] [address] [place] [address] Dr. Marta Ashford PPX Negative Normal NEGATIVE [facility] Comment on above: Performed By: #### P HVEN #### [facility] [address] [place] [address] Dr. Marta Ashford TCA Negative Normal NEGATIVE [facility] Comment on above: Performed By: #### P HVEN #### [facility] [address] [place] [address] Dr. Marta Ashford THC Negative Normal NEGATIVE [facility] Comment on above: Performed By: #### P HVEN #### [facility] [address] [place] [address] Dr. Marta Ashford ER URINE PROFILEon 2 Bilirubin Ql (U) Negative Normal NEGATIVE [facility] Comment on above: Performed By: #### A 1C #### [facility] [address] [place] [address] Dr. Marta Ashford Clarity (U) SL CLOUDY Abnormal CLEAR [facility] Comment on above: Performed By: #### A 1C #### [facility] [address] [place] [address] Dr. Marta Ashford Color (U) YELLOW Normal YELLOW [facility] Comment on above: Performed By: #### A 1C #### [facility] [address] [place] [address] Dr. Marta DUDLEY A micrscopic examina tion will be performed if indicated. Normal [facility] Comment on above: Performed By: #### A 1C #### [facility] [address] [place] [address] Dr. Marta Ashford Glucose Ql (U) 1000 mg/dl Abnormal NEGATIVE [facility] Comment on above: Performed By: #### A 1C #### [facility] [address] [place] [address] Dr. Marta Ashford Hemoglobin Ql (U) SMALL Abnormal NEGATIVE [facility] Comment on above: Performed By: #### A 1C #### [facility] [address] [place] [address] Dr. Marta Ashford Ketones Ql (U) Negative Normal NEGATIVE [facility] Comment on above: Performed By: #### A 1C #### [facility] [address] [place] [address] Dr. Marta Ashford LEUKOCYTES SMALL Abnormal NEGATIVE [facility] Comment on above: Performed By: #### A 1C #### [facility] [address] [place] [address] Dr. Marta Ashford Nitrite Ql (U) Positive Abnormal NEGATIVE [facility] Comment on above: Performed By: #### A 1C #### [facility] [address] [place] [address] Dr. Marta Ashford pH (U) 5.5 [pH] Normal 5-9 [facility] Comment on above: Performed By: #### A 1C #### [facility] [address] [place] [address] Dr. Marta Ashford SPEC GRAVITY 1.020 Normal 1.005-<=1. 025 [facility] Comment on above: Performed By: #### A 1C #### [facility] [address] [place] [address] Dr. Marta Ashford UA PROTEIN TRACE Normal NEGATIVE/ TRACE [facility] Comment on above: Performed By: #### A 1C #### [facility] [address] [place] [address] Dr. Marta Ashford UR MICRO IND INDICATED Normal [facility] Comment on above: Performed By: #### A 1C #### [facility] [address] [place] [address] Dr. Marta Ashford Urobilinogen Qn (U) 0.2 {Brad'U}/dL Normal 0.2 - 1. 0 [facility] Comment on above: Performed By: #### A 1C #### [facility] [address] [place] [address] Dr. Marta Ashford LACTATE/LACTIC ACIDon 2021 Lactate [Moles/Vol] 4.1 mmol/L Critically high 0.7-2.0 [facility] Comment on above: Result Comment: test repeated Performed By: #### L ACT #### [facility] [address] [place] [address] Dr. Marta Ashford Lactate [Moles/Vol] 4.1 mmol/L Critically high 0.7-2.0 [facility] Comment on above: Result Comment: test repeated Performed By: #### L ACT #### [facility] [address] [place] [address] Dr. Marta Ashford OCC BLD IMMUNOASSAYon 2021 OCCULT BLOOD Negative Normal NEGATIVE [facility] Comment on above: Performed By: #### A 1C #### [facility] [address] [place] [address] Dr. Marta Ashford PH VENOUS BLOODon 08-16-2021 PCO2 VENOUS 30.8 mmHg Critically low 40.0-52.0 [facility] Comment on above: Performed By: #### P HVEN #### [facility] [address] [place] [address] Dr. Marta Ashford pH VENOUS 7.400 Normal 7.330-7.43 0 [facility] Comment on above: Performed By: #### P HVEN #### [facility] [address] [address] [address] Marta Ashford POINT OF CARE GLUCOSEon Glucose [Mass/Vol] 214 mg/dL Critically high [address] [place] [address] Comment on above: Performed By: #### C BCMAN #### [facility] [address] [place] [address] Dr. Marta Ashford Glucose [Mass/Vol] 275 mg/dL Critically high [address] [place] [address] Comment on above: Performed By: #### P HVEN #### [facility] [address] [place] [address] Dr. Marta Ashford Glucose [Mass/Vol] 366 mg/dL Critically high [address] [place] [address] Comment on above: Performed By: #### A 1C #### [facility] [address] [place] [address] Dr. Marta Ashford Glucose [Mass/Vol] 168 mg/dL Critically high [address] [place] [address] Comment on above: Performed By: #### P OCGLUC #### [facility] [address] [place] [address] Dr. Marta Ashford Glucose [Mass/Vol] 214 mg/dL Critically high [address] [place] [address] Comment on above: Performed By: #### A 1C #### [facility] [address] [place] [address] Dr. Marta Ashford PROF CHEM 8 (BAS METB)on Anion gap [Moles/Vol] 17.4 mmol/L Normal [facility] Comment on above: Performed By: #### P HVEN #### [facility] [address] [place] [address] Dr. Marta Ashford Calcium [Mass/Vol] 7.3 mg/dL Critically low 8.5-10.1 [facility] Comment on above: Performed By: #### P HVEN #### [facility] [address] [address] [address] Marta Ashford Chloride [Moles/Vol] 108 mmol/L Critically high 98-107 [facility] Comment on above: Performed By: #### P HVEN #### [facility] [address] [address] [address] Marta Ashford CO2 [Moles/Vol] 20.7 mmol/L Critically low 22.0-30.0 [facility] Comment on above: Performed By: #### P HVEN #### [facility] [address] [address] [address] Marta Ashford Creatinine [Mass/Vol] 1.32 mg/dL Critically high 0.66-1.25 [facility] Comment on above: Performed By: #### P HVEN #### [facility] [address] [address] [address] Marta Ashford EGFR-AF ENGLISH >60 Normal >=60 [facility] Comment on above: Performed By: #### P HVEN #### [facility] [address] [address] [address] Marta Ashford EGFR-NON AF ENGLISH 56 mL/min/1.73m2 Critically low >=60 [facility] Comment on above: Performed By: #### P HVEN #### [facility] [address] [address] [address] Marta Ashford Glucose [Mass/Vol] 189 mg/dL Critically high 74-106 [facility] Comment on above: Performed By: #### P HVEN #### [facility] [address] [address] [address] Marta Ashford Potassium [Moles/Vol] 3.1 mmol/L Critically low 3.4-5.0 [facility] Comment on above: Performed By: #### P HVEN #### [facility] [address] [address] [address] Marta Ashford Sodium [Moles/Vol] 143 mmol/L Normal 137-145 [facility] Comment on above: Performed By: #### P HVRILEY #### [facility] [address] [address] [address] Marta Ashford Urea nitrogen [Mass/Vol] 25.0 mg/dL Critically high 7.0-18.0 [facility] Comment on above: Performed By: #### P HARJITEN #### [facility] [address] [address] [address] Marta Ashford Urea nitrogen/Creatinine [Mass ratio] 18.9 mg/mg Normal [facility] Comment on above: Performed By: #### P JOSE #### [facility] [address] [address] [address] Marta Ashford Anion gap [Moles/Vol] 17.1 mmol/L Normal [facility] Comment on above: Performed By: #### C JIMENA #### [facility] [address] [address] [address] Marta Ashford Calcium [Mass/Vol] 8.2 mg/dL Critically low 8.5-10.1 [facility] Comment on above: Performed By: #### C JIMENA #### [facility] [address] [place] [address] Dr. Marta Ashford Chloride [Moles/Vol] 104 mmol/L Normal 98-107 [facility] Comment on above: Performed By: #### C JIMENA #### [facility] [address] [address] [address] Marta Ashford CO2 [Moles/Vol] 23.4 mmol/L Normal 22.0-30.0 [facility] Comment on above: Performed By: #### C JIMENA #### [facility] [address] [address] [address] Marta Ashford Creatinine [Mass/Vol] 1.17 mg/dL Normal 0.66-1.25 [facility] Comment on above: Performed By: #### C JIMENA #### [facility] [address] [place] [address] Dr. Marta Ashford EGFR-AF ENGLISH >60 Normal >=60 [facility] Comment on above: Performed By: #### C FANTASMAMAN #### [facility] [address] [place] [address] Dr. Marta Ashford EGFR-NON AF ENGLISH >60 Normal >=60 [facility] Comment on above: Performed By: #### C JIMENA #### [facility] [address] [place] [address] Dr. Marta Ashford Glucose [Mass/Vol] 215 mg/dL Critically high 74-106 [facility] Comment on above: Performed By: #### C JIMENA #### [facility] Laboratory [address] [place] [address] Dr. Marta Ashford Potassium [Moles/Vol] 3.5 mmol/L Normal 3.4-5.0 [facility] Comment on above: Performed By: #### C JIMENA #### [facility] [address] [place] [address] Dr. Marta Ashford Sodium [Moles/Vol] 141 mmol/L Normal 137-145 [facility] Comment on above: Performed By: #### C JIMENA #### [facility] [address] [place] [address] Dr. Marta Ashford Urea nitrogen [Mass/Vol] 23.0 mg/dL Critically high 7.0-18.0 [facility] Comment on above: Performed By: #### C JIMENA #### [facility] [address] [place] [address] Dr. Marta Ashford Urea nitrogen/Creatinine [Mass ratio] 19.7 mg/mg Normal [facility] Comment on above: Performed By: #### C JIMENA #### [facility] [address] [place] [address] Dr. Marta Ashford URINE MICROSCOPIC ONLYon BACTERIA MODERATE Abnormal NONE SEEN [facility] Comment on above: Performed By: #### A 1C #### [facility] [address] [place] [address] Dr. Marta Ashford Bacteria identified Cx Nom (U) INDICATED Normal [facility] Comment on above: Performed By: #### A 1C #### [facility] [address] [place] [address] Dr. Marta Ashford CAST NONE SEEN Normal NONE SEEN [facility] Comment on above: Performed By: #### A 1C #### [facility] [address] [place] [address] Dr. Marta Ashford Crystals LM Nom (Urine sed) NONE SEEN Normal NONE SEEN [facility] Comment on above: Performed By: #### A 1C #### [facility] [address] [place] [address] Dr. Marta Ashford Epithelial cells LM Ql (Urine sed) NONE SEEN Normal NONE SEEN /RARE [facility] Comment on above: Performed By: #### A 1C #### [facility] [address] [place] [address] Dr. Marta Ashford MUCOUS NONE SEEN Normal NONE SEEN [facility] Comment on above: Performed By: #### A 1C #### [facility] [address] [place] [address] Dr. Marta Ashford RBC 0-2 Normal 0-2 [facility] Comment on above: Performed By: #### A 1C #### [facility] [address] [place] [address] Dr. Marta Ashford WBC 10-20 Abnormal NONE SEEN [facility] Comment on above: Performed By: #### A 1C #### [facility] [address] [place] [address] Dr. Marta Ashford XR CHEST 2 Von [...] KIZZY SINHA Date: 2021-08-16 03:11 Normal [facility] Vital Signs Date Time Vital Sign Value Performing Clinician Facility 11-18-2024 10:35-0400 Body height 162.6 cm Markos Arellano MD Work Phone: [facility] 11-18-2024 10:35-0400 Body mass index (BMI) [Ratio] 38.28 kg/m2 Markos Arellano MD Work Phone: [facility] 11-18-2024 10:35-0400 Body temperature 97.5 [degF] Markos Arellano MD Work Phone: [facility] 11-18-2024 10:35-0400 Body weight 101.15 kg Markos Arellano MD Work Phone: [facility] 11-18-2024 10:35-0400 Diastolic blood pressure 86 mm[Hg] Markos Arellano MD Work Phone: [facility] 11-18-2024 10:35-0400 Heart rate 96 /min Markos Arellano MD Work Phone: [facility] 11-18-2024 10:35-0400 Respiratory rate 20 /min Markos Arellano MD Work Phone: [facility] 11-18-2024 10:35-0400 SaO2% (BldA) [Mass fraction] 96 % Markos Arellano MD Work Phone: [facility] 11-18-2024 10:35-0400 Systolic blood pressure 134 mm[Hg] Markos Arellano MD Work Phone: [facility] 05-24-2024 13:13-0500 Body height 162.56 cm [facility] 05-24-2024 13:13-0500 Body mass index (BMI) [Ratio] 37.8 kg/m2 [facility] 05-24-2024 13:13-0500 Body weight 99.79 kg [facility] 03-08-2024 15:03-0400 Body height 162.6 cm Markos Arellano MD Work Phone: [facility] 03-08-2024 15:03-0400 Body mass index (BMI) [Ratio] 37.76 kg/m2 Markos Arellano MD Work Phone: [facility] 03-08-2024 15:03-0400 Body temperature 97.5 [degF] Markos Arellano MD Work Phone: [facility] 03-08-2024 15:03-0400 Body weight 99.79 kg Markos Arellano MD Work Phone: [facility] 03-08-2024 15:03-0400 Diastolic blood pressure 66 mm[Hg] Markos Arellano MD Work Phone: [facility] 03-08-2024 15:03-0400 Heart rate 96 /min Markos Arellano MD Work Phone: [facility] 03-08-2024 15:03-0400 Respiratory rate 20 /min Markos Arellano MD Work Phone: [facility] 03-08-2024 15:03-0400 SaO2% (BldA) [Mass fraction] 97 % Markos Arellano MD Work Phone: [facility] 03-08-2024 15:03-0400 Systolic blood pressure 124 mm[Hg] Markos Arellano MD Work Phone: [facility] 02-19-2024 09:55-0400 Body height 162.6 cm Maroks Arellano MD Work Phone: [facility] 02-19-2024 09:55-0400 Body mass index (BMI) [Ratio] 38.45 kg/m2 Markos Arellano MD Work Phone: [facility] 02-19-2024 09:55-0400 Body temperature 97.5 [degF] Markos Arellano MD Work Phone: [facility] 02-19-2024 09:55-0400 Body weight 101.61 kg Markos Arellano MD Work Phone: [facility] 02-19-2024 09:55-0400 Diastolic blood pressure 86 mm[Hg] Markos Arellano MD Work Phone: [facility] 02-19-2024 09:55-0400 Heart rate 75 /min Markos Arellano MD Work Phone: [facility] 02-19-2024 09:55-0400 Respiratory rate 20 /min Markos Arellano MD Work Phone: [facility] 02-19-2024 09:55-0400 SaO2% (BldA) [Mass fraction] 93 % Markos Arellano MD Work Phone: [facility] 02-19-2024 09:55-0400 Systolic blood pressure 150 mm[Hg] Markos Arellano MD Work Phone: [facility] 01-22-2024 10:09-0400 Body height 162.6 cm Markos Arellano MD Work Phone: [facility] 01-22-2024 10:09-0400 Body mass index (BMI) [Ratio] 37.93 kg/m2 Markos Arellano MD Work Phone: [facility] 01-22-2024 10:09-0400 Body temperature 97.11 [degF] Markos Arellano MD Work Phone: [facility] 01-22-2024 10:09-0400 Body weight 100.25 kg Markos Arellano MD Work Phone: [facility] 01-22-2024 10:09-0400 Diastolic blood pressure 82 mm[Hg] Markos Arellano MD Work Phone: [facility] 01-22-2024 10:09-0400 Heart rate 91 /min Markos Arellano MD Work Phone: [facility] 01-22-2024 10:09-0400 Respiratory rate 18 /min Markos Arellano MD Work Phone: [facility] 01-22-2024 10:09-0400 SaO2% (BldA) [Mass fraction] 97 % Markos Arellano MD Work Phone: [facility] 01-22-2024 10:09-0400 Systolic blood pressure 150 mm[Hg] Markos Arellano MD Work Phone: [facility] 06-11-2021 16:00-0500 Body height 162.56 cm Girma Tan Other [facility] Other 06-11-2021 16:00-0500 Body mass index (BMI) [Ratio] 39.75 kg/m2 Girma Tan Other [facility] Other 06-11-2021 16:00-0500 Body weight 105.05 kg Girma Tan Other [facility] Other 06-11-2021 16:00-0500 Diastolic blood pressure 89 mm[Hg] Girma Tan Other [facility] Other 06-11-2021 16:00-0500 Respiratory rate 18 /min Girma Tan Other [facility] Other 06-11-2021 16:00-0500 SaO2% (BldA) [Mass fraction] 99 % Girma Tan Other [facility] Other 06-11-2021 16:00-0500 Systolic blood pressure 158 mm[Hg] Girma Tan Other [facility] Other 03-07-2021 15:30-0400 Body height 162.56 cm Oskar Johnson Other [facility] Other 03-07-2021 15:30-0400 Body mass index (BMI) [Ratio] 39.48 kg/m2 Oskar Johnson Other [facility] Other 03-07-2021 15:30-0400 Body weight 104.33 kg Oskar Johnson Other [place] [facility] Other Encounters Encounter Date Encounter Type Care Provider Facility Start: 11-18-2024 End: 11-18-2024 Bessie flowsheet Markos Arellano MD Work Phone: [facility] Start: 11-18-2024 End: 11-18-2024 Bamboo flowsheet Markos Arellano MD Work Phone: [facility] Start: 11-18-2024 End: 11-18-2024 Office outpatient visit 25 minutes Markos Arellano MD Work Phone: [facility] Comment on above: Type 2 diabetes ghassan itus with hyperglycemia, without long-term current use of insulin (HCC) (Primary Dx); Essential hypertension, benign ; Non-alcoholic fatty liver disease; Type 2 diabetes mellitus with other specified complication (HCC); Erectile dysfunction due to diseases classified elsewhere; Class 2 severe obesity due to excess calories with serious comorbidity and body mass index (BMI) of 38.0 to 38.9 in adult ([facility]-H[facility]) Start: 11-18-2024 End: 11-18-2024 ambulatory MARKOS ARELLANO Not Available Start: 06-09-2024 End: 06-09-2024 Patient encounter procedure Markos Arellano MD Work Phone: [facility] Work Phone: Start: 06-09-2024 End: 06-09-2024 ambulatory Markos Arellano MD Work Phone: [facility] Work Phone: Start: 05-24-2024 End: 05-24-2024 ambulatory Markos Arellano MD Work Phone: [facility] Work Phone: Start: 05-24-2024 End: 05-24-2024 Patient encounter procedure [facility] Gastroenterol Work Phone: Start: 03-15-2024 End: 03-15-2024 Clinisync Result Encounter Juliana Morales BEHAVIORAL HEALTH CASE MANAGER Work Phone: [facility] Unsolicited Start: 03-15-2024 End: 03-15-2024 Clinisync Result Encounter Juliana Morales BEHAVIORAL HEALTH CASE MANAGER Work Phone: [facility] External Department Unsolicited Start: 03-15-2024 End: 03-15-2024 Orders Only Juliana Morales BEHAVIORAL HEALTH CASE MANAGER Work Phone: [facility] Comment on [...] patient 40-64yrs Markos Arellano MD Work Phone: [facility] Comment on above: Annual physical exam (Primary Dx); Type 2 diabetes mellitus with hyperglycemia, without long-term current use of insulin (CMS/HCC); Essential hypertension, benign (CMS/HCC); Right upper quadrant abdominal pain; Body mass index (BMI) 37.0-37.9, adult Start: 02-19-2024 End: 02-19-2024 ambulatory MARKOS ARELLANO Not Available Start: 02-05-2024 End: 02-05-2024 Orders Only Markos Arellano MD Work Phone: [facility] Comment on above: Right upper quadrant abdominal pain (Primary Dx) Start: 01-22-2024 End: 01-22-2024 Bamboo flowsheet Markos Arellano MD Work Phone: [facility] Start: 01-22-2024 End: 01-22-2024 Bamboo flowsheet Markos Arellano MD Work Phone: [facility] Start: 01-22-2024 End: 01-22-2024 ambulatory MARKOS ARELLANO Not Available Start: 01-22-2024 End: 01-22-2024 Office outpatient visit 25 minutes Markos Arellano MD Work Phone: [facility] Comment on above: Acute right-sided lo w back pain without sciatica (Primary Dx); Right upper quadrant abdominal pain; Type 2 diabetes mellitus with hyperglycemia, without long-term current use of insulin (CMS/HCC); Immunodeficiency due to conditions classified elsewhere (CMS/HCC) Start: 01-14-2024 End: 01-14-2024 Refill Markos Arellano MD Work Phone: [facility] Comment on above: Type 2 diabetes ghassan itus with hyperglycemia, without long-term current use of insulin (CMS/HCC) (Primary Dx) Start: 12-11-2023 End: 12-11-2023 ambulatory MARKOS ARELLANO Not Available Start: 08-01-2022 End: 08-02-[address] MARKOS ARELLANO Facility:[facility] Start: 03-13-2022 End: 03-14-[address] MARKOS ARELLANO Facility:[facility] Start: 09-12-2021 Encounter for genera l adult medical examination without abnormal findings DR MARKOS ARELLANO [facility] Start: 09-10-2021 End: 09-11-[address] MARKOS ARELLANO Facility:[facility] Start: 09-10-2021 End: 09-11-2021 Encounter for general adult medical examination without abnormal findings DR MARKOS ARELLANO Facility:[facility] Start: 08-16-2021 End: 08-18-2021 Evaluation and management of inpatient DR ANNA THACKER Facility:[facility] Start: 07-02-2021 End: 07-02-2021 ambulatory Girma Tan Other [facility] Other Start: 07-02-2021 Telephone encounter Girma [facility] Start: 06-24-2021 End: 06-24-2021 ambulatory Girma Tan Other [facility] Other Start: 06-24-2021 Telephone encounter Girma Chang [employer] Start: 06-11-2021 End: 06-11-2021 ambulatory Girma Tan Other [facility] Other Start: 06-11-2021 Nutrition therapy Girma Garcia [facility] Start: 03-18-2021 End: 03-18-2021 ambulatory Stacie Muro Other [facility] Other Start: 03-18-2021 Telephone encounter Stacie Garcia [facility] Start: 03-07-2021 Office outpatient visit 25 minutes Oskar OROSCO Gastroenterology Procedures Date Procedure Procedure Detail Performing Clinician Start: 06-09-2024 Ultrasound elastogra phy of liver Markos Arellano MD Work Phone: Start: 03-15-2024 [facility] CREATININE Juliana Aic hholz BEHAVIORAL HEALTH CASE MANAGER Work Phone: Start: 09-10-[address] MARKOS MCINTOSH Comment on above: Performed By: #### C JIMENA #### [facility] [address] [address] [address] Marta Ashford Start: 01-28-2021 Colonoscopy Markos gómez MD Work Phone: Plan of Treatment Date Care Activity Detail Author Start: 01-28-2031 Screening for malign ant neoplasm of colon [facility] Start: 10-01-2025 Glaucoma screening Diabetes: R etinopathy Screening [facility] Start: 05-22-2025 End: 05-22-2025 Patient encounter procedure 05/22/2025 8:30 AM EST Office Visit [facility] [address] [place] [address] Markos Arellano MD [address] [place] [address] [facility] Start: 01-09-2025 Influenza vaccination Influenza Vacc ine (#1) [facility] Start: 12-24-2024 Urine screening for protein Diabetes: Urine Protein Screening [facility] Start: 11-18-2024 End: 11-18-2025 Hemoglobin A1c/Hemoglobin.total in Blood Hemoglobin A1c Lab Routine Type 2 diabetes mellitus with hyperglycemia, without long-term current use of insulin (HCC) Expected: 11/18/2024 (Approximate), Expires: 11/18/2025 [facility] Work Phone: Comment on above: Expected: 11/18/2024 (Approximate), Expires: 11/18/2025 Start: 11-18-2024 End: 11-18-2024 Patient encounter procedure 11/18/2024 10:30 AM EDT Office Visit [facility] [address] [place] [id number] Markos Arellano MD [address] [place] [phone] Arrived [facility] Comment on above: Arrived Start: 06-26-2024 Hemoglobin A1c measurement Diabetes: Hemoglobin A1C [facility] Start: 05-27-2024 End: 05-27-2024 Patient encounter procedure 05/27/2024 9:00 AM EST [facility] [address] [place] [phone] Markos Arellano MD [address] [place] [phone] [facility] Start: 05-24-2024 Actin smooth muscle IgG Ab [Units/volume] in Serum [facility] Start: 05-24-2024 Ceruloplasmin [Mass/volume] in Serum or Plasma [facility] Start: 05-24-2024 Hepatitis A virus Ab [Presence] in Serum by Immunoassay [facility] Start: 05-24-2024 Hepatitis A virus antibody, IgM type [facility] Start: 05-24-2024 Hepatitis B core ant ibody measurement [facility] Start: 05-24-2024 Hepatitis B core ant ibody measurement, IgM type [facility] Start: 05-24-2024 Hepatitis B virus osuna rface Ab [Presence] in Serum [facility] Start: 05-24-2024 IgG [Mass/volume] in Serum or Plasma [facility] Start: 05-24-2024 Lipoprotein a [Moles/volume] in Serum or Plasma [facility] Start: 05-24-2024 Mitochondria M2 IgG Ab [Units/volume] in Serum [facility] Start: 05-24-2024 [facility] Start: 03-15-2024 End: 03-15-2025 Creatinine [Mass/volume] in Serum or Plasma Creatinine Lab Routine Non-alcoholic fatty liver disease Right upper quadrant abdominal pain Expected: 03/15/2024 (Approximate), Expires: 03/15/[address] [facility] Work Phone: Comment on above: Expected: 03/15/2024 (Approximate), Expires: 03/15/2025 Start: 03-08-2024 End: 03-08-2025 CT Abdomen and Pelvis WO and W contrast IV CT abdomen pelvis w and wo IV contrast Imaging Routine Right upper quadrant abdominal pain Non-alcoholic fatty liver disease Expected: 03/08/2024, Expires: 03/08/2025 [facility] Work Phone: Comment on above: Expected: 03/08/2024 , Expires: 03/08/2025 Start: 02-19-2024 End: 02-19-2024 Patient encounter procedure [facility] Comment on above: Arrived Start: 02-05-2024 End: 02-04-2025 NM Gallbladder Views W cholecystokinin and W radionuclide IV NM hepatobiliary w cholecystokinin Imaging Routine Right upper quadrant abdominal pain Expected: 02/05/2024, Expires: 02/04/[address] [facility] Work Phone: Comment on above: Expected: 02/05/2024 , Expires: 02/04/2025 Start: 01-22-2024 End: 01-21-2025 US Abdomen limited US RUQ Imaging Routine Right upper quadrant abdominal pain Expected: 01/22/2024, Expires: 01/21/2025 [facility] Work Phone: Comment on above: Expected: 01/22/2024 , Expires: 01/21/2025 Start: 01-10-2024 Influenza vaccination Influenza Vacc ine (#1) [facility] Start: 1981 Urine screening for protein Diabetes: Urine Protein Screening [facility] Start: 1960 Hemoglobin A1c measurement Diabetes: Hemoglobin A1C [facility] Start: 1960 Screening for malign ant neoplasm of colon [facility] Alpha 1 antitrypsin [Mass/volume] in Serum or Plasma [facility] Alpha 1 antitrypsin phenotyping [Identifier] in Serum or Plasma by Immunofixation [facility] Hepatic function panel [facility] Hepatitis B virus osuna rface Ag [Presence] in Serum or Plasma by Immunoassay [facility] Hepatitis C virus Ig G Ab [Presence] in Serum or Plasma by Immunoassay [facility] HFE gene mutations f ound [Identifier] in Blood or Tissue by Molecular genetics method Nominal [facility] Homogenous nuclear A b pattern [Titer] in Serum [facility] Nuclear Ab [Titer] i n Serum [facility] Immunizations Immunization Date Immunization Notes Care Provider Candida rossity 03-11-2024 influenza virus vacc ine, unspecified formulation Markos Arellano MD Work Phone: [facility] 02-18-2023 influenza virus vacc ine, unspecified formulation Markos Arellano MD Work Phone: [facility] Payers Date Payer Category Payer Self-pay 2021 Private Health Insurance [id number] 1960 Unknown [id number] 2.16.84 [id number] 1962 Unknown [id number] 2.16.84 [id number] 1962 Unknown [id number] 2.16.84 [id number] 1962 Unknown [id number] 2.16.84 [id number] 1962 Unknown [id number] 2.16.8 [id number] 1962 Unknown [id number] 2.16.84 [id number] 1962 Unknown [id number] 2.16.84 [id number] 1962 Unknown [id number] 2.16.84 [id number] 1962 Unknown [id number] 2.16.84 [id number] 1959 Unknown [id number] 2.16.8 [id number] Unknown [id number] 2.16.8 [id number] Unknown [id number] 2.16.8 [id number] Social History Date Type Detail Facility Start: 02-19-2024 End: 11-18-[address] [facility] [employer] Other Start: 01-28-2021 End: 07-01-2023 Tobacco smoking status NHIS Never smoked tobacco [facility] Start: 07-01-2023 Tobacco use and exposure Smokeless tobacco non-user [facility] Start: 02-19-2024 End: 11-18-2024 History of Social function [facility] Start: 1960 Sex assigned at Not on file N [facility] Start: 05-24-2024 End: 06-09-2024 Sex Male (finding) [facility] Start: 1960 Sex Assigned At Male F [facility] Medical Equipment Procedure Code Equipment Code Equipment Origin al Text Equipment Identifier Dates 1 each by Other route if needed (1x daily) Use as instructed [id number] Start: 04-30-2023 End: 11-18-2024 1 each by Other route Daily [id number] Start: 11-18-2024 Goals Date Patient Goal Desired Activity /State Clinical Notes 03-07-2021 to 11-18-2024 Markos Arellano MD - 11/18/2024 11:02 AM Joao Arellano MD - 11/18/2024 11:01 AM Joao Arellano MD - 11/18/2024 11:01 AM Joao Arellano MD - 11/18/2024 11:01 AM EDT Note Date & Type Note Facility 11-18-2024 History of Presen t illness Narrative Associated Problem(s): Class 2 severe obesity due to excess calories with serious comorbidity and body mass index (BMI) of 38.0 to 38.9 in adult ([facility]) Weight loss indicated. Associated Problem(s): Type 2 diabetes mellitus with hyperglycemia, without long-term current use of insulin (HCC) Not checking BS and due for A1C. Stick to ADA diet and limit carbs. Associated Problem(s): Non-alcoholic fatty liver disease Will monitor labs and continue ozempic. Associated Problem(s): Essential hypertension, benign BP controlled and monitor PRN. Images from the original note were not included. Subjective Patient ID: Mike Badillo is a 64 y.o. male who presents for Follow-up (3m). Follow up DM, HTN, and abdominal pain. Abdominal pain resolved. Did not see GI. Not checking BS recently and out of test strips. Tries to eat well and stick to [...] Items Addressed This Visit Essential hypertension, benign BP controlled and monitor PRN. Type 2 diabetes mellitus with hyperglycemia, without long-term current use of insulin (HCC) - Primary Not checking BS and due for A1C. Stick to ADA diet and limit carbs. Relevant Medications Semaglutide, 2 MG/DOSE, (Ozempic, 2 MG/DOSE,) 8 MG/3ML solution pen-injector glucose blood test strip Other Relevant Orders Hemoglobin A1c Class 2 severe obesity due to excess calories with serious comorbidity and body mass index (BMI) of 38.0 to 38.9 in adult ([facility]-HCC) Weight loss indicated. Non-alcoholic fatty liver disease Will monitor labs and continue ozempic. Other Visit Diagnoses Type 2 diabetes mellitus with other specified complication (HCC) Erectile dysfunction due to diseases classified elsewhere documented in this encounter [facility] 05-24-2024 Evaluation note Authored May 24, 2024 [...] serologies to determine the need for vaccinations [facility] Work Phone: 1(196) 725-262111-05-2024 History of Present illness Narrative* Juliana Morales NP - 03/15/2024 8:13 AM EST Centralized scheduling from [facility] called, needs Creatinine order for pt to get CT abd/pelvis done Has been waiting since 6:45, lab wont draw pt without an order Naderer out of office, will send STAT order [place] documented [facility] [id number] History of Present illness Narrative* Markos Arellano [...] Ambulatory referral to Gastroenterology documented [facility] [id number] History of Present illness Narrative* Markos Arellano [...] Discussed daily Aspirin therapy. documented in this encounterMer[facility] [id number] History of Present illness Narrative* Markos Arellano MD - 01/22/2024 10:31 AM EDTAssociated Problem(s): Type 2 diabetes mellitus with hyperglycemia, without long-term current use of insulin ([facility]) A1C over 10 and take meds daily. [...] back pain and c/o abdominal pain. Seen 8/2 and c/o pain in right mid lower [...] hyperglycemia, without long-term current use of insulin ([facility]) A1C over 10 and take meds daily. [...] Diagnoses Immunodeficiency due to conditions classified elsewhere ([facility]/HCC) documented in this encounterMer[facility] [id number] Evaluation note* Encounter Date Diagnosis Assessment Notes [...] Jun, Metabolic syndrome X (ICD-10 - E88.81) [facility] Other [id number] Evaluation note* Encounter Date Diagnosis Assessment Notes Treatment Notes Treatment Clinical Notes Feb, Right upper quadrant abdominal pain (ICD-10 - R10.11) Feb, Hiatal hernia (ICD-1 0 - K44.9) Feb, Esophagitis (ICD-10 - K20.90) Feb, Diverticulosis (ICD-10 - K57.90) Feb, Hemorrhoids (ICD-10 - K64.9) Feb, Fatty liver (ICD-10 - K76.0) PATIENT IS ENCOURAGED WEIGHT LOSS WILL SEND REFERRAL TO DR. NICE [place] Other Evaluation noteNo InformationNort [place] Other Evaluation note* Diagnosis Annual physical exam- Primary Routine general medical examination at a health care facility Type 2 diabetes mellitus with hyperglycemia, without long-term current use of insulin (CMS/HCC) Essential hypertension, benign (CMS/HCC) Essential hypertension, benign Right upper quadrant abdominal pain Body mass index (BMI) 37.0-37.9, adult documented in this encounter [facility] HealthcareEvaluation note* Diagnosis Type 2 diabetes mellitus [...] dysfunction associated with type 2 diabetes mellitus (CMS/HCC) Type II or unspecified type diabetes mellitus without mention of complication, not stated as uncontrolled Acute right-sided low back pain without sciatica- Primary Right upper quadrant abdominal pain Type 2 diabetes mellitus with hyperglycemia, without long-term current use of insulin (CMS/HCC) Immunodeficiency due to conditions classified elsewhere ([facility]) Annual physical exam- Primary Routine general medical [...] disease Immunodeficiency due to conditions classified elsewhere ([facility]) documented in this encounter [facility] HealthcareEvaluation note* Diagnosis Type 2 diabetes mellitus with hyperglycemia, without long-term current use of insulin ([facility]/HCC)- Primary Essential hypertension, benign (CMS/HCC) Essential hypertension, [...] dysfunction associated with type 2 diabetes mellitus ([facility]/HCC) Type II or unspecified type diabetes mellitus without mention of complication, not stated as uncontrolled Acute right-sided low back pain without sciatica- Primary Right upper quadrant abdominal pain Type 2 diabetes mellitus with hyperglycemia, without long-term current use of insulin (CMS/HCC) Immunodeficiency due to conditions classified elsewhere ([facility]) Annual physical exam- Primary Routine general medical examination at a health care facility Type 2 diabetes mellitus with hyperglycemia, without long-term current use of insulin (CMS/HCC) Essential hypertension, benign (CMS/HCC) Essential hypertension, benign Right upper quadrant abdominal pain Body mass index (BMI) 37.0-37.9, adult Type 2 diabetes mellitus with hyperglycemia, without long-term current use of insulin ([facility]/HCC)- Primary Essential hypertension, benign (CMS/HCC) Essential hypertension, benign Right upper quadrant abdominal pain Non-alcoholic fatty liver disease Immunodeficiency due to conditions classified elsewhere (CMS/HCC) Non-alcoholic fatty liver disease- Primary Right upper quadrant abdominal pain documented in this encounter [facility] HealthcareEvaluation note* Diagnosis Acute right-sided low back pain without sciatica- Primary Right upper quadrant abdominal pain Type 2 diabetes mellitus with hyperglycemia, without long-term current use of insulin (CMS/HCC) Immunodeficiency due to conditions classified elsewhere (CMS/HCC) documented in this encounter [facility] HealthcareEvaluation note* Diagnosis Type 2 diabetes mellitus with hyperglycemia, without long-term current use of insulin (CMS/HCC)- Primary documented in this encounter [facility] HealthcareEvaluation note* Diagnosis Right upper quadrant abdominal pain- Primary documented in this encounter [facility] HealthcareEvaluation noteNo assessment information availableUniversity [facility] Work Phone: Evaluation note* Diagnosis Type 2 diabetes mellitus with hyperglycemia, without long-term current use of insulin (HCC)- Primary Essential hypertension, benign Essential hypertension, benign Gastroesophageal reflux disease without esophagitis Esophageal reflux Type 2 diabetes mellitus with hyperglycemia, without long-term current use of insulin (HCC)- Primary Essential hypertension, benign Essential hypertension, benign Gastroesophageal reflux disease without esophagitis Esophageal reflux Lumbar strain, initial encounter Annual physical exam Routine general medical examination at a health care facility Erectile dysfunction associated with type 2 diabetes mellitus (HCC) Type II or unspecified type diabetes mellitus without mention of complication, not stated as uncontrolled Acute right-sided low back pain without sciatica- Primary Right upper quadrant abdominal pain Type 2 diabetes mellitus with hyperglycemia, without long-term current use of insulin (HCC) Immunodeficiency due to conditions classified elsewhere (HCC) Annual physical exam- Primary Routine general medical examination at a health care facility Type 2 diabetes mellitus with hyperglycemia, without long-term current use of insulin (HCC) Essential hypertension, benign Essential hypertension, benign Right upper quadrant abdominal pain Body mass index (BMI) 37.0-37.9, adult Type 2 diabetes mellitus with hyperglycemia, without long-term current use of insulin (HCC)- Primary Essential hypertension, benign Essential hypertension, benign Right upper quadrant abdominal pain Non-alcoholic fatty liver disease Immunodeficiency due to conditions classified elsewhere (HCC) Type 2 diabetes mellitus with hyperglycemia, without long-term current use of insulin (HCC)- Primary Essential hypertension, benign Essential hypertension, benign Non-alcoholic fatty liver disease Type 2 diabetes mellitus with other specified complication (HCC) Erectile dysfunction due to diseases classified elsewhere Class 2 severe obesity due to excess calories with serious comorbidity and body mass index (BMI) of 38.0 to 38.9 in adult (CMS-HCC) documented in this encounter [facility] HealthcareHistory general Narrative - Reported* Type Description Date Medical History Arthritis Medical History SHANNON Medical History type II diabetes Nexess Other Reason for Referral Reason FORM -EVAL AND TREAT Diagnosis 1 Fatty liver (K76.0) Referral Organization [facility] Referring Provider First Name Oskar Referring Provider Last Name Elizabeth Referring Provider Specialty Gastroenter ology Referred Organization [facility] Referred Provider Girma Tan Jr. Referred Address [address],[place], [place],[address] Referred Provider Specialty Internal Med icine Referral Priority Routine General Notes Leann Manjarrez 021 02:55:03 PM > WILL SEND FORM ONCE Deana Hogan 03/07/2021 03:03:35 PM >NOTED Specialty Diagnoses / Procedures Referred By Vijaya singleton Referred To Contact Diagnoses Right upper quadrant abdominal pain Procedures NM hepatobiliary w cholecystokinin Markos Arellano MD [address] [place] [address] Referral ID Status Reason Start Date Expiration Date V isits Requested Visits Authorized [id number] Authorized 02/05/2024 08/03/2024 3 3 Summary Purpose [...] Reason Onset Date Comments Med Refill 01/14/2024 Reason Comments Follow-up 3m (unrecognized sect ion and content) No Status Records FoundNo Status Records FoundNo Status Records Found INFORMATION SOURCE (unrecogn ized section and content) DATE CREATED AUTHOR 08/04/2022 [facility] DATE CREATED AUTHOR AUTHOR'S ORGANIZ ATION 06/19/2024 [facility] DATE CREATED AUTHOR AUTHOR'S ORGANIZ ATION 11/22/2024 [facility] Care Teams (unrecognized sec tion and content) Weighter Relationship Specialty Start Date End Date Markos Arellano MD [address] [place] [phone] PCP - General Family Medicine 06/08/23 Weighter Relationship Specialty Start Date End Date Markos Arellano MD [address] [place] [phone] PCP - General Family Medicine 06/08/23 Weighter Relationship Specialty Start Date End Date Markos Arellano MD [address] [place] [phone] PCP - General Family Medicine 06/08/23 Weighter Relationship Specialty Start Date End Date Markos Arellano MD [address] [place] [phone] PCP - General Family Medicine 06/08/23 Weighter Relationship Specialty Start Date End Date Markos Arellano MD [address] [place] [phone] PCP - General Family Medicine 06/08/23 Weighter Relationship Specialty Start Date End Date Maroks Arellano MD [address] [place] [phone] PCP - General Family Medicine 06/08/23 Weighter Relationship Specialty Start Date End Date Markos Arellano MD [address] [place] [phone] PCP - General Family Medicine 06/08/23 Weighter Relationship Specialty Start Date End Date Markos Arellano MD [address] [place] [phone] PCP - General Family Medicine 06/08/23 Weighter Relationship Specialty Start Date End Date Markos Arellano MD [address] [place] [phone] PCP - General Family Medicine 06/08/23 Team [...] June 09, 2024 End: June 09, 2024 Weighter Relationship Specialty Start Date End Date Markos Arellano MD [address] [place] [phone] PCP - General Family Medicine 06/08/23 Weighter Relationship Specialty Start Date End Date Markos Arellano MD [address] [place] [phone] PCP - General Family Medicine 06/08/23 Goals (unrecognized section and content) Goals may [...] BE BASED ON THE PRIMARY CLINICAL RECORDS. [employer] [facility]. provides no warranty or guarantee of the accuracy or completeness of information in this document.
--- NOTE | 2025-02-10 23:02 | XR_ITS ---
The [address] [address] Patient Name: DAVID GUARDADO MRN: [id number] date: 1960 Sex: M Assigned Patient Location: ER Current Patient Location: ER Accession/Order Number: [id number] Exam Date: 02/10/2025 23:09 Report Date: 02/10/2025 23:51 At the request of: KRISTEL HERNANDEZ MD Procedure: XR chest 1V Plain film chest Single view HISTORY: Lightheaded. Tachycardia. COMPARISON: 08/16/2021 FINDINGS: SUPPORT DEVICES: None POSTSURGICAL CHANGES: None HEART: Within normal limits PULMONARY REED: Within normal limits MEDIASTINUM: Unremarkable LUNGS AND PLEURA: No acute lung process, pleural effusion or pneumothorax identified. BONY STRUCTURES: Intact ADDITIONAL FINDINGS None XR/XR chest 1V IMPRESSION: No acute process. Impression dictated by: Akin Queen M.D. 02/10/2025 11:51 PM Dictation Location: [employer] Electronically authenticated by: [id number] Y Date: 02/10/2025 23:51
--- NOTE | 2025-02-10 23:02 | ECG_ITS ---
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 Measurements Intervals [place] Rate: 135 P: 40 AK: 136 QRS: 24 QRSD: 80 T: 11 QT: 288 QTc: 367 Interpretive Statements 1120 Sinus tachycardia 9140 abnormal rhythm ECG Compared to ECG 08/16/2021 01:14:58 No significant changes Electronically Signed On 02-11-2025 11:10:53 EDT by ERNESTINE MARTINEZ M.D.
--- NOTE | 2025-02-10 23:02 | ED.GENADUL1 ---
HPI HPI - General Adult General Chief complaint: Weakness Stated complaint: LIGHTHEADED/PAINFUL URINATION Time Seen by Provider: 02/10/25 22:57 Source: patient Mode of arrival: ambulance Limitations: no limitations History of Present Illness HPI narrative: 64-year-old male presented for dizziness. Earlier in the day he had diarrhea and then he got shaky tonight. He thinks he has a UTI which she has had previously. No vomiting or blood in his stool. Related Data Home Medications ?Medication ?Instructions ?Recorded ?Confirmed metformin 1,000 mg tablet 1,000 mg PO BID 10/04/24 10/07/24 semaglutide 0.25 mg or 0.5 mg (2 0.25 mg subcut QWEEK 10/04/24 10/07/24 mg/1.5 mL) subcutaneous pen injector (Ozempic) glimepiride 4 mg tablet 4 mg PO BID 10/07/24 10/07/24 lisinopril 40 mg tablet 40 mg PO DAILY 10/07/24 10/07/24 Previous Rx's ?Medication ?Instructions ?Recorded ibuprofen 800 mg tablet 800 mg PO Q8H PRN pain #20 tabs 10/04/24 methocarbamol 500 mg tablet 500 mg PO Q8H PRN pain #20 tabs 10/04/24 Allergies Allergy/AdvReac Type Severity Reaction Status Date / Time No Known Drug Allergies Allergy Verified 02/10/25 23:01 Opioid HPI Opioid Management Most Recent Opioid Data: Last Pain Scale 10 10/04/24, 11:38 Last MAR Pain Assessment 02/10/25, 23:17 Review of Systems ROS Narrative A ten point review of systems is negative except as noted above. PFSH PFSH Social History Little interest or pleasure in doing things: not at all Feeling down, depressed, or hopeless: not at all Exam Narrative Exam Narrative: Nurses note and vital signs reviewed and patient is not hypoxic. General:The patient appears in no apparent distress. Skin:Warm, dry, no pallor noted.There is no rash noted. Head:Normocephalic, atraumatic Eye: Normal conjunctiva, no drainage Ears, Nose, Mouth, and Throat: oral mucosa is moist. Nares patent. Cardiovascular:Regular Rate and Rhythm, tachycardic Respiratory:Patient is in no distress, no accessory muscle use, lungs are clear to auscultation, no wheezing, rales or rhonchi Back:non-tender GI: Soft and nontender Musculoskeletal: The patient has no evidence of calf tenderness, no pitting edema, symmetrical pulses noted bilaterally Neurological:A&O, normal speech Psychiatric:Cooperative Constitutional Vital Signs, click to edit/add: Last Vital Signs Temp 98.3 F 02/11/25 01:44 Pulse 110 H 02/11/25 01:30 Resp 21 H 02/11/25 01:30 BP 125/66 02/11/25 01:30 Pulse Ox 94 L 02/11/25 01:30 O2 Del Method Room Air 02/10/25 23:02 Course Vital Signs Vital signs: Vital Signs Blood Pressure 117/70 02/10/25 22:53 Pulse Oximetry 95 02/10/25 22:53 Temperature 98.3 F 02/11/25 01:44 Pulse Rate 110 H 02/11/25 01:30 Respiratory Rate 21 H 02/11/25 01:30 Blood Pressure 125/66 02/11/25 01:30 Pulse Oximetry 94 L 02/11/25 01:30 Oxygen Delivery Method Room Air 02/10/25 23:02 Medical Decision Making MDM Narrative Medical decision making narrative: The patient is found to have a urinary tract infection. He was given IV fluids and Tylenol and his temperature has come down to normal level and his heart rate has dropped significantly as well. He is not hypotensive. Initial lactic acid minimally elevated at 2.5. Blood cultures were obtained as well as urine culture and he was given IV Rocephin and will be admitted. Findings are discussed with the patient. Differential Diagnosis Differential Diagnosis: UTI, pyelonephritis, sepsis Lab Data Lab results reviewed: Yes I reviewed the patient's lab results Labs: Lab Results 02/10/25 02/10/25 02/10/25 Range/Units 22:59 23:00 23:47 WBC 12.1 H (4.0-11.0) 10^3/uL RBC 4.03 L (4.70-6.10) 10^6/uL Hgb 13.3 L (14.0-18.0) g/dL Hct 38.9 L (42.0-54.0) % MCV 96.5 H (80.0-94.0) fL MCH 33.0 (25.9-34.0) pg MCHC 34.2 (29.9-35.2) g/dL RDW 12.6 (11.0-15.0) % Plt Count 143 L (150-450) 10^3/uL MPV 10.8 (9.5-13.5) fL Neut % (Auto) 83.9 H (43.0-75.0) % Lymph % (Auto) 10.3 L (20.5-60.0) % Archer % (Auto) 4.7 (1.7-12.0) % Eos % (Auto) 0.1 L (0.9-7.0) % Baso % (Auto) 0.4 (0.2-2.0) % Neut # (Auto) 10.1 H (1.4-6.5) 10^3/uL Lymph # (Auto) 1.2 (1.2-3.8) 10^3/uL Archer # (Auto) 0.6 (0.3-0.8) 10^3/uL Eos # (Auto) 0.0 (0.0-0.7) 10^3/uL Baso # (Auto) 0.1 (0.0-0.1) 10^3/uL Abs Immat Gran (auto) 0.07 H (0.00-0.03) 10^3/uL Imm/Tot Granulo (auto) 0.6 H (0.0-0.5) % Sodium 138 (136-145) mmol/L Potassium 3.7 (3.5-5.1) mmol/L Chloride 102 (98-107) mmol/L Carbon Dioxide 22.4 (21.0-32.0) mmol/L Anion Gap 17.3 BUN 19.0 H (7.0-18.0) mg/dL Creatinine 1.22 (0.70-1.30) mg/dL Est GFR ( Amer) >60 (>=60 mL/min/1.73m^2) Est GFR (Non-Af Amer) >60 (>=60 mL/min/1.73m^2) BUN/Creatinine Ratio 15.6 Glucose 240 H (74-106) mg/dL Lactate 2.5 H* (0.4-2.0) mmol/L Calcium 8.5 (8.5-10.1) mg/dL Urine Color Yellow (YELLOW) Urine Clarity Cloudy A (CLEAR) Urine pH 5.5 (5.0-9.0) Ur Specific Peyton 1.020 (1.005-1.025) Urine Protein 100 A (NEG/TRACE) mg/dL Urine Glucose (UA) 250 A (NEGATIVE) mg/dL Urine Ketones Trace A (NEGATIVE) mg/dL Urine Occult Blood Small A (NEGATIVE) Urine Nitrite Negative (NEGATIVE) Urine Bilirubin Small A (NEGATIVE) Urine Urobilinogen 2.0 A (0.2-1.0) EU/dL Ur Leukocyte Esterase Small A (NEGATIVE) Urine RBC None seen (0-2) #/HPF Urine WBC 50-75 A (NONE SEEN) #/HPF Ur Squamous Epith Cells Rare (NONE/RARE) #/LPF Urine Crystals None seen (None Seen) #/HPF Urine Bacteria Small A (NONE SEEN) #/HPF Urine Casts None seen (NONE SEEN) #/LPF Urine Mucus None seen (NONE SEEN) Ur Culture Indicated? Yes-[facility] [place] Influenza Type A Ag Negative Influenza Type B Ag Negative SARS-CoV-2 Ag (CV2AG) Negative (NEGATIVE) Imaging Data Chest x-ray: Radiologist's impression: ITS Impressions Chest X-Ray 02/10/25 23:02 IMPRESSION: No acute process. Impression dictated by: Akin Queen M.D. 02/10/2025 11:51 PM Dictation Location[facility] Electronically authenticated by: [id number] Y Date: 02/10/2025 23:51 ECG Data Attestation: I personally reviewed and interpreted this ECG as follows: (EKG on my interpretation shows sinus tachycardia with a rate of 135) Discharge Plan Discharge Chief Complaint: Weakness Clinical Impression: Urinary tract infection Patient Disposition: Admitted As Inpatient Time of Disposition Decision: 01:54 Condition: Fair
[2025-02-10] MEDS: 0.9 % SODIUM CHLORIDE 1,000 ML 1000 ML IV (23:12)
[2025-02-10 23:16] LABS: Hematocrit 38.9 % (42.0-54.0); Hemoglobin 13.3 g/dL (14.0-18.0); Immature Granulocytes Abs Auto 0.07 10^3/uL (0.00-0.03); Immature Granulocytes Pct Auto 0.6 % (0.0-0.5); Lymphocytes Absolute Auto 1.2 10^3/uL (1.2-3.8); Mean Corpuscular HGB Conc 34.2 g/dL (29.9-35.2); Mean Corpuscular Hemoglobin 33.0 pg (25.9-34.0); Mean Corpuscular Volume 96.5 fL (80.0-94.0); Platelet Count 143 10^3/uL (150-450); Red Blood Count 4.03 10^6/uL (4.70-6.10); White Blood Count 12.1 10^3/uL (4.0-11.0)
[2025-02-10] MEDS: ACETAMINOPHEN 325 MG TABLET 650 MG PO (23:17)
[2025-02-10 23:24] LABS: SARS-CoV-2 Ag NEGATIVE (NEGATIVE)
[2025-02-10 23:42] LABS: Anion Gap 17.3; Blood Urea Nitrogen 19.0 mg/dL (7.0-18.0); Calcium 8.5 mg/dL (8.5-10.1); Carbon Dioxide 22.4 mmol/L (21.0-32.0); Chloride 102 mmol/L (98-107); Estimated GFR (African America >60 (>=60 mL/min/1.73m^2); Estimated GFR (Non-African Ame >60 (>=60 mL/min/1.73m^2); Glucose 240 mg/dL (74-106); Potassium 3.7 mmol/L (3.5-5.1); Sodium 138 mmol/L (136-145)
[2025-02-11] VITALS (30 sets, daily range): BP systolic 99–126; BP diastolic 60–80; PULSE 72–121; TEMP 36.8–38.3; O2SAT 93–97; BMI 37.3
[2025-02-11 00:01] LABS: Lactate/Lactic Acid 2.5 mmol/L (0.4-2.0)
[2025-02-11 00:18] LABS: Glucose Urine UA 250 mg/dL (NEGATIVE)
[2025-02-11 00:23] LABS: Cast Seen? NONE SEEN #/LPF (NONE SEEN); Crystals Seen? None Seen #/HPF (None Seen); Urine Culture Indicated YES-FRMC
--- OUTSIDE RECORDS SUMMARY | 2025-02-11 02:36 | XMS_ITS | CCD ---
Author Organization 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 Name Role Phone Oskar Johnson Unavailable [phone] Stacie Muro Unavailable DominickGirma laura Unavailable ADAN, [...] Unavailable NADERER, DR MARKOS Cobb Consulting Unavailable [place]IS [place], DR CASTILLO Primary Care Unavailable YOLI ., DR CASTILLO Consulting Unavailable NADERER, DR MARKOS Cobb Admitting Unavailable NADERER, DR MARKOS Cobb Attending Unavailable NADERER, DR MARKOS Cobb Consulting Unavailable STEPHANIE, MISBAH Consulting Unavailable FAMASHA, SHAIKH Isaac Consulting Unavailable KIZZY SINHA Consulting Unavailable JEAN PIERRE, ROVERTO Consulting Unavailable Markos Arellano MD Primary Care Provider Markos Arellano MD Primary Care Provider [phone] Uziel GAMINO, Imanthony Attending Provider Markos Arellano [...] Translations: [Immunodeficiency due to conditions classified elsewhere ([facility])] 03-08-2024 Chronic Osteoarthritis (4 sources) Osteoarthritis of [...] (BMI) of 38.0 to 38.9 in adult ([facility])] Onset: 07-01-2023 11-18-2024 Chronic Unclassified (1 source) [...] Resolved: 03-07-2021 Episodic Other aftercare (1 source) jail (current) use of oral hypoglycemic drugs; Translations: [[facility] USE ORAL HYPOGLYCEMIC DX] Onset: 08-21-2021 Episodic [...] Abs, IFA Positive Critically abnormal . [facility] Comment on above: Result Comment: Nega tive <1:80 Borderline 1:80 Positive >1:80 Performed By: #### C BC, HEPATIC, BIANKA #### [place] [address] [place] #### ALPHA PHEN, HAABT, CERULOP, L-K MICRO, IGG, HBCAB, SMAB, HBSAG, HBSAB, HCV RX PCR, HARRISON, HCBIGM, HEMOCHROM, MITOM2, HAAB #### [facility] , Homogeneous Pattern 1 Normal . [facility] Comment on above: Result Comment: ICAP nomenclature: [id number] Performed By: #### C BC, HEPATIC, BIANKA #### [place] [address] [place] #### ALPHA PHEN, HAABT, CERULOP, L-K MICRO, IGG, HBCAB, SMAB, HBSAG, HBSAB, HCV RX PCR, HARRISON, HCBIGM, HEMOCHROM, MITOM2, HAAB #### [facility] , Note 1 Comment Normal . [facility] Comment on above: Result Comment: Stefani castro Potential Disease Association Homogeneous Systemic Lupus Erythematosus, Drug Induced Systemic Lupus Erythematosus, Chronic Autoimmune hepatitis, Juvenile Idiopathic Arthritis Speckled Sjogren Syndrome, Systemic Lupus Erythematosus, Subacute Cutaneous Lupus, Lupus, Congenital Heart Block, Mixed Connective Tissue Disease, Scleroderma-diffuse, Scleroderma-Autoimmune Myositis Overlap Syndrome, Systemic Lupus Enjhzzflcdpkf-Zpklubejple-Gebceopady Myositis Overlap Syndrome, Systemic Autoimmune Rheumatic Disease, [...] Scleroderma, Antiphospholipid Syndrome Performed at: - [facility] [address] [id number] Squaring Machine Operator: Forest Mcclain PhD, Phone: [phone] Performed By: #### C BC, HEPATIC, BIANKA #### [address] #### ALPHA PHEN, HAABT, CERULOP, L-K MICRO, IGG, HBCAB, SMAB, HBSAG, HBSAB, HCV RX PCR, HARRISON, HCBIGM, HEMOCHROM, MITOM2, HAAB #### [facility] , Actin smooth muscle IgG Ab [ Units/volume] in SerumOrdered By: ad [facility] on 05-24-2024 Actin smooth muscle IgG Qn (S) Actin smooth muscle IgG Ab [Units/volume] in Serum 0-19 [facility] Comment on above: Negative 0 - 19 [...] activity/volume] in Serum or Plasma High 7-52 [facility] Albumin [Mass/volume] in Ser um or Plasma by Bromocresol green (BCG) dye binding methoOrdered By: Imad Asaad on 05-24-2024 Albumin BCG dye [Mass/Vol] Albumin [Mass/volume] in Serum or Plasma by Bromocresol green (BCG) dye binding metho 3.5-5.7 [facility] Alkaline phosphatase [Enzyma tic activity/volume] in Serum or PlasmaOrdered By: Imad Asaad on 05-24-2024 ALP [Catalytic activity/Vol] Alkaline phosphatase [Enzymatic activity/volume] in Serum or Plasma 34-104 [facility] Hinej-2-Ttidnvaxvuu Phenotyp luan 05-24-2024 Alpha 1 Anti-Trypsin 139 mg/dL Normal 101-187 [facility] Comment on above: Performed By: #### C BC, HEPATIC, BIANKA #### [facility] [address] #### ALPHA PHEN, HAABT, CERULOP, L-K MICRO, IGG, HBCAB, SMAB, HBSAG, HBSAB, HCV RX PCR, HARRISON, HCBIGM, HEMOCHROM, MITOM2, HAAB #### [facility] , Phenotype (P1) MM Normal . [facility] Comment on above: Result Comment: MM Phenotype is considered to be normal , producing normal serum levels of bmrya-7-bbnbsdog inhibitor and not associated with clinical disease. [...] Ranges used to confirm phenotype. Performed at: [address] [id number] Squaring Machine Operator: Forest Mcclain PhD, Phone: [phone] Performed at: [address] [id number] Squaring Machine Operator: Jeannine Jacobson MD, Phone: [phone] Performed By: #### C BC, HEPATIC, BIANKA #### [facility] [address] #### ALPHA PHEN, HAABT, CERULOP, L-K MICRO, IGG, HBCAB, SMAB, HBSAG, HBSAB, HCV RX PCR, HARRISON, HCBIGM, HEMOCHROM, MITOM2, HAAB #### [facility] , Aspartate aminotransferase [ Enzymatic activity/volume] in Serum or PlasmaOrdered By: [facility] on 05-24-2024 AST [Catalytic activity/Vol] Aspartate aminotransferase [Enzymatic activity/volume] in Serum or Plasma High 13-39 [facility] Basophils Auto (Bld) [#/Vol] Ordered By: [facility] on 05-24-2024 Basophils (Bld) [#/Vol] Automated basophil count 0.0-0.2 [facility] Basophils/100 WBC Auto (Bld) Ordered By: [facility] on 05-24-2024 Basophils/100 WBC (d) Automated basophil % . [facility] Bilirubin.direct [Mass/volum e] in Serum or PlasmaOrdered By: [facility] on 05-24-2024 Bilirubin.direct [Mass/Vol] Bilirubin.direct [Mass/volume] in Serum or Plasma 0.03-0.18 [facility] Bilirubin.total [Mass/volume ] in Serum or PlasmaOrdered By: [facility] on 05-24-2024 Bilirubin [Mass/Vol] Bilirubin.total [Mass/volume] in Serum or Plasma 0.3-1.0 [facility] Blood or tissue HFE gene mut ations identification by molecular genetics methodOrdered By: [facility] on 05-24-2024 HFE gene targeted mutation analysis Molgen Nom (Bld/Tiss) Blood or tissue HFE gene mutations identification by molecular genetics method . [facility] Comment on above: Results:c.845G>A (p. Ttg640Rxf) - Not Detectedc.187C>G (p.Tlz39Fgj) - Detected, heterozygousc.193A>T (p.Evn10Tnj) - Not DetectedNot associated with increased risk [...] recommended for patientswho are homozygous for c.845G>A (p.Brb764Pyw) and have yetto experience clinical symptoms.Comments:The most common HFE variants associated with hereditaryhemochromatosis are c.845G>A (p.Roa660Gyk), c.187C>G(p.Iab82Imz), c.193A>T (p.Xpb74Waa). While patientshomozygous for c.845G>A (p.Nzo963Yiu) are the most likelyto present clinical symptoms, less than 10% developclinically significant iron overload with tissue and organdamage.Genetic counseling is recommended to discuss the potentialclinical implications of positive results, as well asrecommendations for testing family members.Genetic Coordinators are available for health careproviders to discuss results at [phone] Details:Three variants analyzed:c.845G>A (p.Tbm129Olo), commonly referred to as C282Yc.187C>G (p.Bvb42Nho), commonly referred to as H63Dc.193A>T (p.Fpx32Sao), commonly referred to as Y83YDdligwv/Limitations:DNA Analysis of the HFE gene ([id number]) was [...] Scott [facility], Chaz KV, Robert LW, Jesusita ;[place] [employer] Liver [employer].Diagnosis and management of hemochromatosis: 2011 practiceguideline by the [place] Association for the Study ofLiver Diseases. Hepatology. 2011 Nov;54(1):328-43. doi:10.1002/hep.78699. PMID: 50228678; PMCID: [id number].Nevaeh G, Paramjit P, Werner POOL, Jesus H, Jane O,Sheldon S, Antolin I, Foreign M, Miguel S. [facility] best practiceguidelines for the molecular genetic diagnosis ofhereditary hemochromatosis (HH). Eur J Hum Katie. 2016Apr;24(4):479-95. doi: 10.1038/ejhg.2015.128. Epub 2014. PMID: 69369729; PMCID: [id number]. Ceruloplasminon 05-24-2024 Ceruloplasmin 21.3 mg/dL Normal 16.0-31.0 [facility] Comment on above: Result Comment: Perf ormed at: - [facility] [address] [id number] Squaring Machine Operator: Forest Mcclain PhD, Phone: [phone] PERFORMED BY: [place] [address] PATHOLOGIST VOLTAGE INSPECTOR FRANSISCO GONCALVES M.D. Performed By: #### C BC, HEPATIC, BIANKA #### [address] #### ALPHA PHEN, HAABT, CERULOP, L-K MICRO, IGG, HBCAB, SMAB, HBSAG, HBSAB, HCV RX PCR, HARRISON, HCBIGM, HEMOCHROM, MITOM2, HAAB #### [facility] , Complete Blood Count Auto Di ffon 05-24-2024 Basophils (Bld) [#/Vol] 0.0 10*3/uL Normal 0.0-0.2 [facility] Comment on above: Result Comment: PERF ORMED BY: [place] [address] PATHOLOGIST VOLTAGE INSPECTOR FRANSISCO GONCALVES M.D. Performed By: #### C BC, HEPATIC, BAINKA #### [place] [address] [place] #### ALPHA PHEN, HAABT, CERULOP, L-K MICRO, IGG, HBCAB, SMAB, HBSAG, HBSAB, HCV RX PCR, HARRISON, HCBIGM, HEMOCHROM, MITOM2, HAAB #### [facility] , Basophils/100 WBC (Bld) 0.5 % Normal . [facility] Comment on above: Performed By: #### C BC, HEPATIC, BIANKA #### [place] [address] [place] #### ALPHA PHEN, HAABT, CERULOP, L-K MICRO, IGG, HBCAB, SMAB, HBSAG, HBSAB, HCV RX PCR, HARRISON, HCBIGM, HEMOCHROM, MITOM2, HAAB #### [facility] , Eosinophils (Bld) [#/Vol] 0.1 10*3/uL Normal 0.0-0.45 [facility] Comment on above: Performed By: #### C BC, HEPATIC, BIANKA #### [place] [address] [place] #### ALPHA PHEN, HAABT, CERULOP, L-K MICRO, IGG, HBCAB, SMAB, HBSAG, HBSAB, HCV RX PCR, HARRISON, HCBIGM, HEMOCHROM, MITOM2, HAAB #### [facility] , Eosinophils/100 WBC (Bld) 1.7 % Normal . [facility] Comment on above: Performed By: #### C BC, HEPATIC, BIANKA #### [place] [address] [place] #### ALPHA PHEN, HAABT, CERULOP, L-K MICRO, IGG, HBCAB, SMAB, HBSAG, HBSAB, HCV RX PCR, HARRISON, HCBIGM, HEMOCHROM, MITOM2, HAAB #### [facility] , Erythrocyte distribution width (RBC) [Ratio] 13.3 % Normal 12.0-14.8 [facility] Comment on above: Performed By: #### C BC, HEPATIC, BIANKA #### [place] [address] [place] #### ALPHA PHEN, HAABT, CERULOP, L-K MICRO, IGG, HBCAB, SMAB, HBSAG, HBSAB, HCV RX PCR, HARRISON, HCBIGM, HEMOCHROM, MITOM2, HAAB #### [facility] , Hematocrit (Bld) [Volume fraction] 43.7 % Normal 38.8-50.0 [facility] Comment on above: Performed By: #### C BC, HEPATIC, BIANKA #### [place] [address] [place] #### ALPHA PHEN, HAABT, CERULOP, L-K MICRO, IGG, HBCAB, SMAB, HBSAG, HBSAB, HCV RX PCR, HARRISON, HCBIGM, HEMOCHROM, MITOM2, HAAB #### [facility] , Hemoglobin (Bld) [Mass/Vol] 14.8 g/dL Normal 13.0-17.0 [facility] Comment on above: Performed By: #### C BC, HEPATIC, BIANKA #### [place] [address] [place] #### ALPHA PHEN, HAABT, CERULOP, L-K MICRO, IGG, HBCAB, SMAB, HBSAG, HBSAB, HCV RX PCR, HARRISON, HCBIGM, HEMOCHROM, MITOM2, HAAB #### [facility] , Lymphocytes (Bld) [#/Vol] 2.9 10*3/uL Normal 1.00-4.8 [facility] Comment on above: Performed By: #### C BC, HEPATIC, BIANKA #### [place] [address] [place] #### ALPHA PHEN, HAABT, CERULOP, L-K MICRO, IGG, HBCAB, SMAB, HBSAG, HBSAB, HCV RX PCR, HARRISON, HCBIGM, HEMOCHROM, MITOM2, HAAB #### [facility] , Lymphocytes/100 WBC (Bld) 37.3 % Normal . [facility] Comment on above: Performed By: #### C BC, HEPATIC, BIANKA #### [place] [address] [place] #### ALPHA PHEN, HAABT, CERULOP, L-K MICRO, IGG, HBCAB, SMAB, HBSAG, HBSAB, HCV RX PCR, HARRISON, HCBIGM, HEMOCHROM, MITOM2, HAAB #### [facility] , MCH (RBC) [Entitic mass] 32.7 pg Normal 27.5-35.2 [facility] Comment on above: Performed By: #### C BC, HEPATIC, BIANKA #### [place] [address] [place] #### ALPHA PHEN, HAABT, CERULOP, L-K MICRO, IGG, HBCAB, SMAB, HBSAG, HBSAB, HCV RX PCR, HARRISON, HCBIGM, HEMOCHROM, MITOM2, HAAB #### [facility] , MCV (RBC) [Entitic vol] 96.2 fL Normal 83.5-101 [facility] Comment on above: Performed By: #### C BC, HEPATIC, BIANKA #### [place] [address] [place] #### ALPHA PHEN, HAABT, CERULOP, L-K MICRO, IGG, HBCAB, SMAB, HBSAG, HBSAB, HCV RX PCR, HARRISON, HCBIGM, HEMOCHROM, MITOM2, HAAB #### [facility] , Mean Corpuscular HGB Conc 34.0 g/dL Normal 32.5-35.6 [facility] Comment on above: Performed By: #### C BC, HEPATIC, BIANKA #### [place] [address] [place] #### ALPHA PHEN, HAABT, CERULOP, L-K MICRO, IGG, HBCAB, SMAB, HBSAG, HBSAB, HCV RX PCR, HARRISON, HCBIGM, HEMOCHROM, MITOM2, HAAB #### [facility] , Monocytes (Bld) [#/Vol] 0.6 10*3/uL Normal 0.0-0.8 [facility] Comment on above: Performed By: #### C BC, HEPATIC, BIANKA #### [address] #### ALPHA PHEN, HAABT, CERULOP, L-K MICRO, IGG, HBCAB, SMAB, HBSAG, HBSAB, HCV RX PCR, HARRISON, HCBIGM, HEMOCHROM, MITOM2, HAAB #### [facility] , Monocytes/100 WBC (Bld) 7.1 % Normal . [facility] Comment on above: Performed By: #### C BC, HEPATIC, BIANKA #### [place] [address] [place] #### ALPHA PHEN, HAABT, CERULOP, L-K MICRO, IGG, HBCAB, SMAB, HBSAG, HBSAB, HCV RX PCR, HARRISON, HCBIGM, HEMOCHROM, MITOM2, HAAB #### [facility] , Neutrophils (Bld) [#/Vol] 4.2 10*3/uL Normal 1.8-7.7 [facility] Comment on above: Performed By: #### C BC, HEPATIC, BIANKA #### [place] [address] [place] #### ALPHA PHEN, HAABT, CERULOP, L-K MICRO, IGG, HBCAB, SMAB, HBSAG, HBSAB, HCV RX PCR, HARRISON, HCBIGM, HEMOCHROM, MITOM2, HAAB #### [facility] , Neutrophils/100 WBC (Bld) 53.4 % Normal . [facility] Comment on above: Performed By: #### C BC, HEPATIC, BIANKA #### [place] [address] [place] #### ALPHA PHEN, HAABT, CERULOP, L-K MICRO, IGG, HBCAB, SMAB, HBSAG, HBSAB, HCV RX PCR, HARRISON, HCBIGM, HEMOCHROM, MITOM2, HAAB #### [facility] , NRBC% 0.1 /100{WBC} Normal 0-0.5 [facility] Comment on above: Performed By: #### C BC, HEPATIC, BIANKA #### [place] [address] [place] #### ALPHA PHEN, HAABT, CERULOP, L-K MICRO, IGG, HBCAB, SMAB, HBSAG, HBSAB, HCV RX PCR, HARRISON, HCBIGM, HEMOCHROM, MITOM2, HAAB #### [facility] , Platelet mean volume (Bld) [Entitic vol] 9.9 fL Normal 6.6-10.1 [facility] Comment on above: Performed By: #### C BC, HEPATIC, BIANKA #### [place] [address] [place] #### ALPHA PHEN, HAABT, CERULOP, L-K MICRO, IGG, HBCAB, SMAB, HBSAG, HBSAB, HCV RX PCR, HARRISON, HCBIGM, HEMOCHROM, MITOM2, HAAB #### [facility] , Platelets (Bld) [#/Vol] 159 10*3/uL Normal 150-450 [facility] Comment on above: Performed By: #### C BC, HEPATIC, BIANKA #### [place] [address] [place] #### ALPHA PHEN, HAABT, CERULOP, L-K MICRO, IGG, HBCAB, SMAB, HBSAG, HBSAB, HCV RX PCR, HARRISON, HCBIGM, HEMOCHROM, MITOM2, HAAB #### [facility] , RBC (Bld) [#/Vol] 4.54 10*6/uL Normal 3.90-5.60 [facility] Comment on above: Performed By: #### C BC, HEPATIC, BIANKA #### [facility] [address] [place] [address] #### ALPHA PHEN, HAABT, CERULOP, L-K MICRO, IGG, HBCAB, SMAB, HBSAG, HBSAB, HCV RX PCR, HARRISON, HCBIGM, HEMOCHROM, MITOM2, HAAB #### [facility] , WBC (Bld) [#/Vol] 7.8 10*3/uL Normal 4.1-10.5 [facility] Comment on above: Performed By: #### C BC, HEPATIC, BIANKA #### [facility] [address] [place] [address] [place] #### ALPHA PHEN, HAABT, CERULOP, L-K MICRO, IGG, HBCAB, SMAB, HBSAG, HBSAB, HCV RX PCR, HARRISON, HCBIGM, HEMOCHROM, MITOM2, HAAB #### [facility] , Eosinophils Auto (Bld) [#/Vo l]Ordered By: Imad Asaad on 05-24-2024 Eosinophils (Bld) [#/Vol] Automated eosinophil count 0.0-0.45 [facility] Eosinophils/100 WBC Auto (Bl d)Ordered By: Imad Asaad on 05-24-2024 Eosinophils/100 WBC (Bld) Automated eosinophil % . [facility] Erythrocyte distribution wid th Auto (RBC) [Ratio]Ordered By: Imad Asaad on 05-24-2024 Erythrocyte distribution width (RBC) [Ratio] Erythrocyte distribution width [Ratio] by Automated count 12.0-14.8 [facility] Ferritinon 05-24-2024 Ferritin [Mass/Vol] 241.6 ng/mL Normal 23.9-336.2 [facility] Comment on above: Result Comment: PERF ORMED BY: [place] [address] PATHOLOGIST VOLTAGE INSPECTOR FRANSISCO GONCALVES M.D. Performed By: #### C BC, HEPATIC, BIANKA #### [facility] [address] [place] [address] [place] #### ALPHA PHEN, HAABT, CERULOP, L-K MICRO, IGG, HBCAB, SMAB, HBSAG, HBSAB, HCV RX PCR, HARRISON, HCBIGM, HEMOCHROM, MITOM2, HAAB #### [facility] , Ferritin [Mass/volume] in Se rum or PlasmaOrdered By: [facility] on 05-24-2024 Ferritin [Mass/Vol] Ferritin [Mass/volum e] in Serum or Plasma 23.9-336.2 [facility] Globulin Calc (S) [Mass/Vol] Ordered By: [facility] on 05-24-2024 Globulin (S) [Mass/Vol] Serum globulin measurement by calculation (mass/volume) [facility] Hematocrit Auto (Bld) [Volum e fraction]Ordered By: [facility] on 05-24-2024 Hematocrit (Bld) [Volume fraction] Hematocrit [Volume Fraction] of Blood by Automated count 38.8-50.0 [facility] Hemoglobin [Mass/volume] in BloodOrdered By: [facility] 05-24-2024 Hemoglobin (Bld) [Mass/Vol] Hemoglobin [Mass/volume] in Blood 13.0-17.0 [facility] Hep C Ab wRfx to Qnt PCRon 0 05-24-2024 Hepatitis C Virus Antibody Non-Reactive Normal Non Reactive [facility] Comment on above: Performed By: #### C BC, HEPATIC, BIANKA #### [place] [address] [place] #### ALPHA PHEN, HAABT, CERULOP, L-K MICRO, IGG, HBCAB, SMAB, HBSAG, HBSAB, HCV RX PCR, HARRISON, HCBIGM, HEMOCHROM, MITOM2, HAAB #### [facility] , Interpretation Hepatitis C Comment Normal . [facility] Comment on above: Result Comment: Not infected with HCV unless early or acute infection is suspected (which may be delayed in an immunocompromised individual), or other evidence exists to indicate HCV infection. Performed By: #### C BC, HEPATIC, BIANKA #### [place] [address] [place] #### ALPHA PHEN, HAABT, CERULOP, L-K MICRO, IGG, HBCAB, SMAB, HBSAG, HBSAB, HCV RX PCR, HARRISON, HCBIGM, HEMOCHROM, MITOM2, HAAB #### [facility] , Hepatic Panelon 05-24-2024 Albumin [Mass/Vol] 4.2 g/dL Normal 3.5-5.7 [facility] Comment on above: Performed By: #### C BC, HEPATIC, BIANKA #### [place] [address] [place] #### ALPHA PHEN, HAABT, CERULOP, L-K MICRO, IGG, HBCAB, SMAB, HBSAG, HBSAB, HCV RX PCR, HARRISON, HCBIGM, HEMOCHROM, MITOM2, HAAB #### [facility] , Albumin/Globulin [Mass ratio] 1.4 {ratio} Normal [facility] Comment on above: Performed By: #### C BC, HEPATIC, BIANKA #### [place] [address] [place] #### ALPHA PHEN, HAABT, CERULOP, L-K MICRO, IGG, HBCAB, SMAB, HBSAG, HBSAB, HCV RX PCR, HARRISON, HCBIGM, HEMOCHROM, MITOM2, HAAB #### [facility] , ALP [Catalytic activity/Vol] 45 U/L Normal 34-104 [facility] Comment on above: Performed By: #### C BC, HEPATIC, BIANKA #### [place] [address] [place] #### ALPHA PHEN, HAABT, CERULOP, L-K MICRO, IGG, HBCAB, SMAB, HBSAG, HBSAB, HCV RX PCR, HARRISON, HCBIGM, HEMOCHROM, MITOM2, HAAB #### [facility] , ALT [Catalytic activity/Vol] 53 U/L High 7-52 [facility] Comment on above: Performed By: #### C BC, HEPATIC, BIANKA #### [place] [address] [place] #### ALPHA PHEN, HAABT, CERULOP, L-K MICRO, IGG, HBCAB, SMAB, HBSAG, HBSAB, HCV RX PCR, HARRISON, HCBIGM, HEMOCHROM, MITOM2, HAAB #### [facility] , AST [Catalytic activity/Vol] 42 U/L High 13-39 [facility] Comment on above: Performed By: #### C BC, HEPATIC, BIANKA #### [place] [address] [place] #### ALPHA PHEN, HAABT, CERULOP, L-K MICRO, IGG, HBCAB, SMAB, HBSAG, HBSAB, HCV RX PCR, HARRISON, HCBIGM, HEMOCHROM, MITOM2, HAAB #### [facility] , Bilirubin [Mass/Vol] 0.5 mg/dL Normal 0.3-1.0 [facility] Comment on above: Performed By: #### C BC, HEPATIC, BIANKA #### [place] [address] [place] #### ALPHA PHEN, HAABT, CERULOP, L-K MICRO, IGG, HBCAB, SMAB, HBSAG, HBSAB, HCV RX PCR, HARRISON, HCBIGM, HEMOCHROM, MITOM2, HAAB #### [facility] , Bilirubin,Indirect 0.4 mg/dL Normal [facility] Comment on above: Performed By: #### C BC, HEPATIC, BIANKA #### [place] [address] [place] #### ALPHA PHEN, HAABT, CERULOP, L-K MICRO, IGG, HBCAB, SMAB, HBSAG, HBSAB, HCV RX PCR, HARRISON, HCBIGM, HEMOCHROM, MITOM2, HAAB #### [facility] , Bilirubin.indirect [Mass/Vol] 0.10 mg/dL Normal 0.03-0.18 [facility] Comment on above: Performed By: #### C BC, HEPATIC, BIANKA #### [place] [address] [place] #### ALPHA PHEN, HAABT, CERULOP, L-K MICRO, IGG, HBCAB, SMAB, HBSAG, HBSAB, HCV RX PCR, HARRISON, HCBIGM, HEMOCHROM, MITOM2, HAAB #### [facility] , Globulin (S) [Mass/Vol] 3.0 g/dL Normal [facility] Comment on above: Performed By: #### C BC, HEPATIC, BIANKA #### [place] [address] [place] #### ALPHA PHEN, HAABT, CERULOP, L-K MICRO, IGG, HBCAB, SMAB, HBSAG, HBSAB, HCV RX PCR, HARRISON, HCBIGM, HEMOCHROM, MITOM2, HAAB #### [facility] , Protein [Mass/Vol] 7.2 g/dL Normal 6.4-8.9 [facility] Comment on above: Performed By: #### C BC, HEPATIC, BIANKA #### [place] [address] [place] #### ALPHA PHEN, HAABT, CERULOP, L-K MICRO, IGG, HBCAB, SMAB, HBSAG, HBSAB, HCV RX PCR, HARRISON, HCBIGM, HEMOCHROM, MITOM2, HAAB #### [facility] , Hepatitis A Antibody IgMon 0 05-24-2024 Hepatitis A Antibody IgM Negative Normal Negative [facility] Comment on above: Result Comment: A ne gative anti-HAV IgM result suggests no recent or current HAV infection. Performed By: #### C BC, HEPATIC, BIANKA #### [place] [address] [place] #### ALPHA PHEN, HAABT, CERULOP, L-K MICRO, IGG, HBCAB, SMAB, HBSAG, HBSAB, HCV RX PCR, HARRISON, HCBIGM, HEMOCHROM, MITOM2, HAAB #### [facility] , Hepatitis A Antibody Totalon 05-24-2024 Hepatitis A Antibody Total Positive Critically abnormal Negative [facility] Comment on above: [...] total antibody results to IgM (e.g., panel #[id number] HAV Antibody w/ Rfx). Performed By: #### C BC, HEPATIC, BIANKA #### [facility] [address] #### ALPHA PHEN, HAABT, CERULOP, L-K MICRO, IGG, HBCAB, SMAB, HBSAG, HBSAB, HCV RX PCR, HARRISON, HCBIGM, HEMOCHROM, MITOM2, HAAB #### [facility] , Hepatitis A virus Ab [Presen ce] in Serum by ImmunoassayOrdered By: Imad Asaad on 05-24-2024 HAV Ab IA Ql (S) Hepatitis A virus Ab [Presence] in Serum by Immunoassay Abnormal Negative [facility] Comment on above: Comment: The HAV tot [...] HAVtotal antibody results to IgM (e.g., panel #[id number] HAVAntibody w/ Rfx). Hepatitis A virus IgM antibo dy assayOrdered By: Imad Asaad on 05-24-2024 Hepatitis A IgM Antibody Negative Negative [facility] Comment on above: A negative anti-HAV IgM result suggests no recent orcurrent HAV infection. Hepatitis B Core Antibodyon 05-24-2024 Hepatitis B Core Antibody Negative Normal Negative [facility] Comment on above: Performed By: #### C BC, HEPATIC, BIANKA #### [address] #### ALPHA PHEN, HAABT, CERULOP, L-K MICRO, IGG, HBCAB, SMAB, HBSAG, HBSAB, HCV RX PCR, HARRISON, HCBIGM, HEMOCHROM, MITOM2, HAAB #### [facility] , Hepatitis B Core Antibody Ig Mon 05-24-2024 Hepatitis B Core Antibody IgM Negative Normal Negative [facility] Comment on above: Result Comment: Perf ormed at: - [facility] [address] [id number] Squaring Machine Operator: Forest Mcclain PhD, Phone: [phone] Performed By: #### C BC, HEPATIC, BIANKA #### [address] #### ALPHA PHEN, HAABT, CERULOP, L-K MICRO, IGG, HBCAB, SMAB, HBSAG, HBSAB, HCV RX PCR, HARRISON, HCBIGM, HEMOCHROM, MITOM2, HAAB #### [facility] , Hepatitis B Surface Antibody on 05-24-2024 Hepatitis B Surface Antibody Non-Reactive Normal . [facility] Comment on above: Result Comment: Non Reactive: Not immune to HBV infection. Equivocal: Unable to determine if anti-HBs is present at levels consistent with immunity. Reactive: Anti-HBs concentration detected at greater than 10 mIU/mL. Individual is considered to be immune to infection with HBV. Performed By: #### C BC, HEPATIC, BIANKA #### [place] [address] [place] #### ALPHA PHEN, HAABT, CERULOP, L-K MICRO, IGG, HBCAB, SMAB, HBSAG, HBSAB, HCV RX PCR, HARRISON, HCBIGM, HEMOCHROM, MITOM2, HAAB #### [facility] , Hepatitis B Surface Antigeno n 05-24-2024 HBsAg Screen Negative Normal Negative [facility] Comment on above: Result Comment: PERF ORMED BY: [place] [address] PATHOLOGIST VOLTAGE INSPECTOR FRANSISCO GONCALVES M.D. Performed By: #### C BC, HEPATIC, BIANKA #### [facility] [address] [place] [address] [place] #### ALPHA PHEN, HAABT, CERULOP, L-K MICRO, IGG, HBCAB, SMAB, HBSAG, HBSAB, HCV RX PCR, HARRISON, HCBIGM, HEMOCHROM, MITOM2, HAAB #### [facility] , Hepatitis B virus core IgM a ntibody assayOrdered By: Kianna Triplett on 05-24-2024 Hepatitis B Core IgM Antibody Negative Negative [facility] Comment on above: Performed at: [place] [id number] Director: Forest Mcclain PhD, Phone: [phone] Hepatitis B virus core antib oskar assayOrdered By: [facility] on 05-24-2024 Hepatitis B Core Total Antibody Negative Negative [facility] Hepatitis C virus IgG Ab [Pr esence] in Serum or Plasma by ImmunoassayOrdered By: anthony [facility] on 05-24-2024 HCV IgG IA Ql Hepatitis C virus Ig G Ab [Presence] in Serum or Plasma by Immunoassay Non Reactive [facility] Hereditary Hemochromatosis,D Manpreet 05-24-2024 Hereditary Hemochromatosis Comment Normal . [facility] Comment on above: Result Comment: Resu lts: c.845G>A (p.Xyj675Okk) - Not Detected c.187C>G (p.Hjc55Jvh) - Detected, heterozygous c.193A>T (p.Vil78Lvp) - Not Detected Not associated with increased [...] for patients who are homozygous for c.845G>A (p.Nap304Zpd) and have yet to experience clinical symptoms. Comments: The most common HFE variants associated with hereditary hemochromatosis are c.845G>A (p.Sqw466Vvw), c.187C>G (p.Mgz62Nio), c.193A>T (p.Ubu88Fol). While patients homozygous for c.845G>A (p.Vek934Pkd) are the most likely to present clinical symptoms, less than 10% develop clinically significant iron overload with tissue and organ damage. Genetic counseling is recommended to discuss the potential clinical implications of positive results, as well as recommendations for testing family members. Genetic Coordinators are available for health care providers to discuss results at [phone] ([phone]). Test Details: Three variants analyzed: c.845G>A (p.Skb010Xie), commonly referred to as C282Y c.187C>G (p.Whk00Knf), commonly referred to as H63D c.193A>T (p.Niz17Pox), commonly referred to as S65C Methods/Limitations: DNA [...] developed and its performance characteristics determined by [employer]. It has not been cleared or approved by the Food and Drug Administration. References: Babar BR, Scott PC, Chaz KV, Robert LW, Jesusita ; [place] [employer] Liver [employer]. Diagnosis and management of hemochromatosis: 2011 practice guideline by the [place] [employer] Liver Diseases. Hepatology. 2010;54(1):328-43. doi: 10.1002/hep.16482. PMID: 49975561; PMCID: YGM2346541. Nevaeh G, Paramjit P, Werner DW, Jesus H, Jane O, Sheldon S, Antolin I, Foreign Orozco, Miguel Daniel. EMQN best practice guidelines for the molecular genetic diagnosis of hereditary hemochromatosis (HH). Eur J Hum Katie. 2016 Aug;24(4):479-95. doi: 10.1038/ejhg.2015.128. Epub 2014Nov 15. PMID: 31592316; PMCID: QCU9344649. Performed By: #### C BC, HEPATIC, BIANKA #### [address] #### ALPHA PHEN, HAABT, CERULOP, L-K MICRO, IGG, HBCAB, SMAB, HBSAG, HBSAB, HCV RX PCR, HARRISON, HCBIGM, HEMOCHROM, MITOM2, HAAB #### [facility] , Reviewed by: Comment Normal . [facility] Comment on above: Result Comment: Tech nical Component performed at [employer] Professional Component performed by: Kast Cruzito Hand, Ph.D., [facility] Director, Molecular Genetics [address] [place] [address] [place] [address] Performed at: [facility] [employer] [facility] [place], [place] [id number] Squaring Machine Operator: Kamille Norman [facility], Phone: [phone] PERFORMED BY: [place] [address] PATHOLOGIST VOLTAGE INSPECTOR FRANSISCO GONCALVES M.D. Performed By: #### C BC, HEPATIC, BIANKA #### [place] [address] [place] #### ALPHA PHEN, HAABT, CERULOP, L-K MICRO, IGG, HBCAB, SMAB, HBSAG, HBSAB, HCV RX PCR, HARRISON, HCBIGM, HEMOCHROM, MITOM2, HAAB #### [facility] , Immunoglobulin Lj 5 Immunoglobulin G 1088 mg/dL Normal [id number] [facility] Comment on above: Result Comment: Perf ormed at: - [facility] [id number] Squaring Machine Operator: Forest Mcclain PhD, Phone: [phone] Performed By: #### C BC, HEPATIC, BIANKA #### [place] [address] [place] #### ALPHA PHEN, HAABT, CERULOP, L-K MICRO, IGG, HBCAB, SMAB, HBSAG, HBSAB, HCV RX PCR, HARRISON, HCBIGM, HEMOCHROM, MITOM2, HAAB #### [facility] , Leukocytes [#/volume] correc nina for nucleated erythrocytes in Blood by Automated counOrdered By: Imad Asaad on 05-24-2024 WBC corrected for nucl RBC Auto (Bld) [#/Vol] Leukocytes [#/volume] corrected for nucleated erythrocytes in Blood by Automated coun 4.1-10.5 [facility] Liver-Kidney Microsomal Abon 05-24-2024 Liver-Kidney Microsomal Ab <1.0 Normal 0.0-20.0 [facility] Comment on above: Result Comment: Nega tive 0.0 - 20.0 Equivocal 20.1 - 24.9 Positive >24.9 LKM type 1 antibodies are detected in patients with autoimmune hepatitis type 2 and in up to 8% of patients with chronic HCV infection. Performed at: - [facility] [id number] Squaring Machine Operator: Forest Mcclain PhD, Phone: [phone] Performed By: #### C BC, HEPATIC, BIANKA #### [place] [address] [place] #### ALPHA PHEN, HAABT, CERULOP, L-K MICRO, IGG, HBCAB, SMAB, HBSAG, HBSAB, HCV RX PCR, HARRISON, HCBIGM, HEMOCHROM, MITOM2, HAAB #### [facility] , Lymphocytes Auto (Bld) [#/Vo l]Ordered By: Imad Asaad on 05-24-2024 Lymphocytes (Bld) [#/Vol] Lymphocytes [#/volume] in Blood by Automated count 1.00-4.8 [facility] Lymphocytes/100 WBC Auto (Bl d)Ordered By: Imad Asaad on 05-24-2024 Lymphocytes/100 WBC (Bld) Lymphocytes/100 leukocytes in Blood by Automated count . [facility] MCH Auto (RBC) [Entitic mass ]Ordered By: Imad Asaad on 05-24-2024 MCH (RBC) [Entitic mass] MCH [Entitic mass] by Automated count 27.5-35.2 [facility] MCHC Auto (RBC) [Mass/Vol]Or dered By: Imad Asaad on 05-24-2024 MCHC (RBC) [Mass/Vol] MCHC [Mass/volume] by Automated count 32.5-35.6 [facility] MCV Auto (RBC) [Entitic vol] Ordered By: Imad Asaad on 05-24-2024 MCV (RBC) [Entitic vol] MCV [Entitic volume] by Automated count 83.5-101 [facility] Mitochondrial (M2) Antibodyo n 05-24-2024 Mitochondrial (M2) Antibody <20.0 Normal 0.0-20.0 [facility] Comment on above: Result Comment: Nega tive 0.0 - 20.0 Equivocal 20.1 - 24.9 Positive >24.9 Mitochondrial (M2) Antibodies are found in 90-96% of patients with primary biliary cirrhosis. Performed at: - [facility] [id number] Squaring Machine Operator: Forest Mcclain PhD, Phone: [phone] Performed By: #### C BC, HEPATIC, BIANKA #### [facility] [address] [place] [address] #### ALPHA PHEN, HAABT, CERULOP, L-K MICRO, IGG, HBCAB, SMAB, HBSAG, HBSAB, HCV RX PCR, HARRISON, HCBIGM, HEMOCHROM, MITOM2, HAAB #### [facility] , Monocytes Auto (Bld) [#/Vol] Ordered By: Imad Asaad on 05-24-2024 Monocytes (Bld) [#/Vol] Automated blood monocyte count 0.0-0.8 [facility] Monocytes/100 WBC Auto (Bld) Ordered By: Imad Asaad on 05-24-2024 Monocytes/100 WBC (Bld) Automated monocyte % . [facility] Neutrophils Auto (Bld) [#/Vo l]Ordered By: Imad Asaad on 05-24-2024 Neutrophils (Bld) [#/Vol] Neutrophils [#/volume] in Blood by Automated count 1.8-7.7 [facility] Neutrophils/100 WBC Auto (Bl d)Ordered By: Imad Asaad on 05-24-2024 Neutrophils/100 WBC (Bld) Automated neutrophil % . [facility] No Panel InformationOrdered By: Imad Asaad on 05-24-2024 Anti-Nuclear Antibody Comment 2 Comment . [facility] Comment on above: Pattern Potential Di sease Association Homogeneous Systemic Lupus Erythematosus, Drug Induced Systemic Lupus Erythematosus, Chronic Autoimmune hepatitis, Juvenile Idiopathic Arthritis Speckled Sjogren Syndrome, Systemic Lupus Erythematosus, Subacute Cutaneous Lupus, Lupus, Congenital Heart Block, Mixed Connective Tissue Disease, Scleroderma-diffuse, Scleroderma-Autoimmune Myositis Overlap Syndrome, Systemic Lupus Kwhpohcagqthf-Gtwocnhvskn-Qkjmgkrhxy Myositis Overlap Syndrome, Systemic Autoimmune Rheumatic Disease, [...] Cytopenias, Linear Scleroderma, Antiphospholipid Syndrome Performed at: [employer] [address] [id number] Director: Forest Mcclain PhD, Phone: [phone] Hemochromatosis Note Comment . [facility] Comment on above: Technical Component performed at [employer]PProfessional Component performed by:Dittit Raimundo Hand, Ph.D., FACMGDirector, Molecular Xwhjcujg[address] [place] [id number] at: [facility] [employer] [id number] [place], [place] [id number] Director: Kamille Norman [facility], Phone: [phone] Hepatitis C Interpretation Comment . [facility] Comment on above: Not infected with HC V unless early or acute infection issuspected (which may be delayed in an immunocompromisedindividual), or other evidence exists to indicate HCVinfection. Nucleated erythrocytes [Pres ence] in Blood by Automated countOrdered By: Kianna Triplett on 05-24-2024 Nucleated RBC Auto Ql (Bld) Nucleated erythrocytes [Presence] in Blood by Automated count 0-0.5 [facility] Platelet mean volume Auto (B ld) [Entitic vol]Ordered By: Imad Asaad on 05-24-2024 Platelet mean volume (Bld) [Entitic vol] Platelet mean volume [Entitic volume] in Blood by Automated count 6.6-10.1 [facility] Platelets Auto (Bld) [#/Vol] Ordered By: Imad Asaad on 05-24-2024 Platelets (Bld) [#/Vol] Platelets [#/volume] in Blood by Automated count 150-450 [facility] Protein [Mass/volume] in Ser um or PlasmaOrdered By: Imad Asaad on 05-24-2024 Protein [Mass/Vol] Protein [Mass/volume ] in Serum or Plasma 6.4-8.9 [facility] RBC Auto (Bld) [#/Vol]Ordere d By: Imad Asaad on 05-24-2024 RBC (Bld) [#/Vol] Erythrocytes [#/volu me] in Blood by Automated count 3.90-5.60 [facility] Serum hepatitis B virus surf truman antibody detectionOrdered By: Imad Asaad on 05-24-2024 HBV surface Ab Ql (S) Hepatitis B virus surface Ab [Presence] in Serum . [facility] Comment on above: Non Reactive: Not im [...] homogeneous pattern antinuclear antibody (HARRISON) titer . [facility] Comment on above: ICAP nomenclature: A C-1 Serum mitochondria M2 IgG an tibody assay (units/volume)Ordered By: Imad Asaad on 05-24-2024 Mitochondria M2 IgG Qn (S) Serum mitochondria M2 IgG antibody assay (units/volume) 0.0-20.0 [facility] Comment on above: Negative 0.0 - 20.0 Equivocal 20.1 - 24.9 Positive >24.9Mitochondrial (M2) Antibodies are found in 90-96% ofpatients with primary biliary cirrhosis.Performed at: [employer] [facility] [address] [id number] Director: Forest Mcclain PhD, Phone: [phone] Serum nuclear antibody titer Ordered By: anthony Triplett on 05-24-2024 Nuclear Ab (S) [Titer] Serum nuclear ant ibody titer Abnormal . [facility] Comment on above: Negative <1:80 Borde rline 1:80 Positive >1:80 Serum or plasma IgG measurem ent (mass/volume)Ordered By: ad Asa on 05-24-2024 IgG [Mass/Vol] IgG [Mass/volume] in Serum or Plasma [id number] [facility] Comment on above: Performed at: [employer] [facility] [address] [id number] Director: Forest Mcclain PhD, Phone: [phone] Serum or plasma albumin/glob ulin mass ratioOrdered By: Imad Uziel on 05-24-2024 Albumin/Globulin [Mass ratio] Serum or plasma albumin/globulin mass ratio [facility] Serum or plasma alpha 1 anti trypsin measurement (mass/volume)Ordered By: ad Asaad on 05-24-2024 Alpha 1 antitrypsin [Mass/Vol] Serum nxdxf-1-vkbminprerf measurement 101-187 [facility] Serum or plasma alpha 1 anti trypsin phenotyping identification by immunofixationOrdered By: Kianna Triplett on 05-24-2024 Alpha 1 antitrypsin phenotyping Immun[employer]ation Nom Serum or plasma alpha 1 antitrypsin phenotyping identification by immunofixation . [facility] Comment on above: MM Phenotype is co nsidered to be normal , producingnormal serum levels of luwrj-2-sukjqrhj inhibitor andnot associated with clinical disease. Associated X2Oxbzdy serum levels in other phenotypes and theirincidence [...] reference. Ranges used to confirm phenotype.Performed at: [address] [id number] Director: Forest Mcclain PhD, Phone: [phone] at: [address] [id number] Director: Jeannine Jacobson MD, Phone: [phone] Serum or plasma ceruloplasmi n measurement (mass/volume)Ordered By: anthony Triplett on 05-24-2024 Ceruloplasmin [Mass/Vol] Serum or plasma ceruloplasmin measurement (mass/volume) 16.0-31.0 [facility] Comment on above: Performed at: [address] [id number] Director: Forest Mcclain PhD, Phone: [phone] Serum or plasma hepatitis B virus surface antigen detection by immunoassayOrdered By: Kianna Triplett on 05-24-2024 HBV surface Ag IA Ql Hepatitis B virus s urface Ag [Presence] in Serum or Plasma by Immunoassay Negative [facility] Serum or plasma lipoprotein a measurement (moles/volume)Ordered By: anthony Triplett on 05-24-2024 Lipoprotein a [Moles/Vol] Serum or plasma lipoprotein a measurement (moles/volume) 0.0-20.0 [facility] Comment on above: Negative 0.0 - 20.0 Equivocal 20.1 - 24.9 Positive >24.9LKM type 1 antibodies are detected in patients withautoimmune hepatitis type 2 and in up to 8% ofpatients with chronic HCV infection.Performed at: [facility] [employer] [id number] Director: Forest Mcclain PhD, Phone: [phone] Serum or plasma non-glucuron idated bilirubin measurement (mass/volume)Ordered By: Kianna Triplett on 05-24-2024 Bilirubin.indirect [Mass/Vol] Serum or plasma non-glucuronidated bilirubin measurement (mass/volume) [facility] Smooth Muscle Antibodyon Smooth Muscle Antibody 4 Normal 0-19 [facility] Comment on above: Result Comment: Nega tive 0 - 19 Weak positive 20 - 30 Moderate to strong positive >30 Actin Antibodies are found in 52-85% of patients with autoimmune hepatitis or chronic active hepatitis and in 22% of patients with primary biliary cirrhosis. Performed By: #### C BC, HEPATIC, BIANKA #### [address] #### ALPHA PHEN, HAABT, CERULOP, L-K MICRO, IGG, HBCAB, SMAB, HBSAG, HBSAB, HCV RX PCR, HARRISON, HCBIGM, HEMOCHROM, MITOM2, HAAB #### [facility] , WBC Auto (Bld) [#/Vol]Ordere d By: Kianna Triplett on 05-24-2024 WBC (Bld) [#/Vol] Leukocytes [#/volume ] in Blood by Automated count 4.1-10.5 [facility] CREATININEon 03-15-2024 Creatinine [Mass/Vol] 1.1 mg/dL 0.70 - 1.30 mg/dL [facility] GFR/1.73 sq M.predicted CKD-EPI (S/P/Bld) [Vol rate/Area] >60 >=60 mL/min/1.7 3m 2 [facility] EGFR-NON AF DANISH >60 >=60 mL/min/1.7 3m 2 [facility] CLINISYNC [facility] GLYCOHEMOGLOBIN A1Con 2022 ADA RECOMMENDATION SEE BELOW Normal [facility] Comment on above: Result Comment: ADA RECOMMENDED LIMIT 4.0 - 6.0 ADA THERAPEUTIC TARGET < 7.0 ACTION SUGGESTED > 7.0 Performed By: #### C BCMAN #### [facility] [address] [place] [address] [address] Marta Ashford Glucose [Mass/Vol] 243 mg/dL Normal [facility] Comment on above: Performed By: #### C JIMENA #### [facility] [address] [place] [address] Dr. Marta Ashford HbA1c (Bld) [Mass fraction] 10.1 % Critically high 4.5-6.2 [facility] Comment on above: Performed By: #### C JIMENA #### [facility] [address] [place] [address] Dr. Marta Ashford GLYCOHEMOGLOBIN A1Con 2021 ADA RECOMMENDATION SEE BELOW Normal [facility] Comment on above: Result Comment: ADA RECOMMENDED LIMIT 4.0 - 6.0 ADA THERAPEUTIC TARGET < 7.0 ACTION SUGGESTED > 7.0 Performed By: #### A 1C #### [facility] [address] [place] [address] Dr. Marta Ashford Glucose [Mass/Vol] 266 mg/dL Normal [facility] Comment on above: Performed By: #### A 1C #### [facility] [address] [place] [address] Dr. Marta Ashford HbA1c (Bld) [Mass fraction] 10.9 % Critically high 4.5-6.2 [facility] Comment on above: Performed By: #### A 1C #### [facility] [address] [place] [address] Dr. Marta Ashford CBC AUTO DIFFon 09-10-2021 BASO # 0.1 103/ul Normal 0.0-0.1 [facility] Comment on above: Performed By: #### A 1C #### [facility] [address] [place] [address] Dr. Marta Ashford Basophils/100 WBC (Bld) 0.7 % Normal 0.2-2.0 [facility] Comment on above: Performed By: #### A 1C #### [facility] [address] [place] [address] Dr. Marta Ashford EO # 0.3 103/ul Normal 0.0-0.7 [facility] Comment on above: Performed By: #### A 1C #### [facility] [address] [place] [address] Dr. Marta Ashford Eosinophils/100 WBC (Bld) 2.9 % Normal 0.9-7.0 [facility] Comment on above: Performed By: #### A 1C #### [facility] [address] [place] [address] Dr. Marta Ashford Erythrocyte distribution width (RBC) [Ratio] 12.6 % Normal 11.0-15.0 [facility] Comment on above: Performed By: #### A 1C #### [facility] [address] [place] [address] Dr. Marta Ashford Hematocrit (Bld) [Volume fraction] 45.0 % Normal 42.0-54.0 [facility] Comment on above: Performed By: #### A 1C #### [facility] [address] [place] [address] Dr. Marta Ashford Hemoglobin (Bld) [Mass/Vol] 14.4 g/dL Normal 14.0-18.0 [facility] Comment on above: Performed By: #### A 1C #### [facility] [address] [place] [address] Dr. Marta Ashford IG # 0.06 10e3/ul Critically high 0.00-0.03 [facility] Comment on above: Performed By: #### A 1C #### [facility] [address] [place] [address] Dr. Marta Ashford IG % 0.6 % Critically high 0.0-0.5 [facility] Comment on above: Performed By: #### A 1C #### [facility] [address] [place] [address] Dr. Marta Ashford LYMPH # 3.3 103/ul Normal 1.2-3.8 [facility] Comment on above: Performed By: #### A 1C #### [facility] [address] [place] [address] Dr. Marta Ashford Lymphocytes/100 WBC (Bld) 34.5 % Normal 20.5-60.0 [facility] Comment on above: Performed By: #### A 1C #### [facility] [address] [place] [address] Dr. Marta Ashford MANUAL DIFF REQ NO Normal [facility] Comment on above: Performed By: #### A 1C #### [facility] [address] [place] [address] Dr. Marta Ashford MCH (RBC) [Entitic mass] 31.0 pg Normal 25.9-34.0 [facility] Comment on above: Performed By: #### A 1C #### [facility] [address] [place] [address] Dr. Marta Ashford MCHC (RBC) [Mass/Vol] 32.0 g/dL Normal 29.9-35.2 [facility] Comment on above: Performed By: #### A 1C #### [facility] [address] [place] [address] Dr. Marta Ashford MCV (RBC) [Entitic vol] 96.8 fL Critically high 80.0-94.0 [facility] [facility] Comment on above: Performed By: #### A 1C #### [facility] [place] [facility] [address] [place] [address] Dr. Marta Ashford MONO # 0.7 103/ul Normal 0.3-0.8 [facility] Comment on above: Performed By: #### A 1C #### [facility] [place] [facility] [address] [place] [address] Dr. Marta Ashford Monocytes/100 WBC (Bld) 7.8 % Normal 1.7-12.0 [facility] [place] Comment on above: Performed By: #### A 1C #### [facility] [place] [facility] [address] [place] [address] Dr. Marta Ashford NEUT # 5.1 103/ul Normal 1.4-6.5 [facility] [place] Comment on above: Performed By: #### A 1C #### [facility] [place] [facility] [address] [place] [address] Dr. Marta Ashford Neutrophils/100 WBC (Bld) 53.5 % Normal 43.0-75.0 [facility] [place] Comment on above: Performed By: #### A 1C #### [facility] [place] [facility] [address] [place] [address] Dr. Marta Ashford Platelet mean volume (Bld) [Entitic vol] 12.3 fL Normal 9.5-13.5 [facility] Comment on above: Performed By: #### A 1C #### [facility] [place] [facility] [address] [place] [address] Dr. Marta Ashford PLT 170 103/ul Normal 150-450 [facility] [place] Comment on above: Performed By: #### A 1C #### [facility] [place] [facility] [address] [address] [address] Marta Ashford RBC 4.65 106/ul Critically low 4.70-6.10 [facility] [place] Comment on above: Performed By: #### A 1C #### [facility] [place] [facility] [address] [place] [address] Dr. Marta Ashford WBC 9.5 103/ul Normal 4.0-11.0 [facility] Comment on above: Performed By: #### A 1C #### [facility] [place] [facility] [address] [place] [address] Dr. Marta Ashford DIRECT LDLon 09-10-2021 Cholesterol in LDL [Mass/Vol] 96 mg/dL Normal [facility] Comment on above: Performed By: #### C JIMENA #### [facility] [place] [facility] [address] [place] [address] Dr. Marta Ashford DLDL NORMAL SEE BELOW Normal [facility] [place] Comment on above: Result Comment: <100 mg/dl OPTIMAL 100 - 129 mg/dl NEAR OR ABOVE OPTIMAL 130 - 159 mg/dl BORDERLINE HIGH 160 - 189 mg/dl HIGH >190 mg/dl VERY HIGH Performed By: #### C JIMENA #### [facility] [place] [facility] [address] [place] [address] Dr. Marta Ashford GLYCOHEMOGLOBIN A1Con 2021 ADA RECOMMENDATION SEE BELOW Normal [facility] [place] Comment on above: Result Comment: ADA RECOMMENDED LIMIT 4.0 - 6.0 ADA THERAPEUTIC TARGET < 7.0 ACTION SUGGESTED > 7.0 Performed By: #### A 1C #### [facility] [place] [facility] [address] [place] [address] Dr. Marta Ashford Glucose [Mass/Vol] 223 mg/dL Normal [facility] [place] Comment on above: Performed By: #### A 1C #### [facility] [place] [facility] [address] [address] [address] Marta Ashford HbA1c (Bld) [Mass fraction] 9.4 % Critically high 4.5-6.2 [facility] Comment on above: Performed By: #### A 1C #### [facility] [place] [facility] [address] [address] [address] Marta Ashford LIPID PROFILEon 09-10-2021 CHOL-HDL RATIO NORM SEE BELOW Normal [facility] Comment on above: Result Comment: 3.3 - 4.4 LOW RISK 4.4 - 7.1 AVERAGE RISK 7.1 - 11.0 MODERATE RISK >11.0 HIGH RISK Performed By: #### C JIMENA #### [facility] [place] [facility] [address] [address] [address] Marta Ashford Cholesterol [Mass/Vol] 209 mg/dL Critically high <=200 [facility] Comment on above: Performed By: #### Shira HESS #### [facility] [place] [facility] [address] [address] [address] Marta Ashford Cholesterol in HDL [Mass/Vol] 34 mg/dL Critically low 40-60 [facility] Comment on above: Performed By: #### Shira HESS #### [facility] [place] [facility] [address] [address] [address] Marta Ashford Cholesterol.total/Chol esterol in HDL [Mass ratio] 6.1 {ratio} Normal [facility] Comment on above: Performed By: #### Shira HESS #### [facility] [place] [facility] [address] [address] [address] Marta Ashford HDL NORMAL > or = 60 mg/dl - LO W CARDIOVASCULAR RISK <40 mg/dl - HIGH CARDIOVASCULAR RISK Normal [facility] Comment on above: Performed By: #### Shira HESS #### [facility] [place] [facility] [address] [place] [address] Dr. Marta Ashford LDL CALC NORMAL SEE BELOW Normal [facility] [place] Comment on above: Result Comment: <100 mg/dl OPTIMAL 100 - 129 mg/dl NEAR OR ABOVE OPTIMAL 130 - 159 mg/dl BORDERLINE HIGH 160 - 189 mg/dl HIGH >190 mg/dl VERY HIGH Performed By: #### C JIMENA #### [facility] [place] [facility] [address] [place] [address] Dr. Marta Ashford Triglyceride [Mass/Vol] 591 mg/dL Critically high <=150 [facility] Comment on above: Performed By: #### C JIMENA #### [facility] [place] [facility] [address] [place] [address] Dr. Marta Ashford VLDL CALC 118.2 mg/dL Normal [facility] Comment on above: Performed By: #### C JIMENA #### [facility] [place] [facility] [address] [place] [address] Dr. Marta Ashford LIVER PROFILEon 09-10-2021 Albumin [Mass/Vol] 3.6 g/dL Normal 3.4-5.0 [facility] Comment on above: Performed By: #### C JIMENA #### [facility] [place] [facility] [address] [place] [address] Dr. Marta Ashford Albumin/Globulin [Mass ratio] 0.9 {ratio} Normal [facility] Comment on above: Performed By: #### C JIMENA #### [facility] [place] [facility] [address] [place] [address] Dr. Marta Ashford ALP [Catalytic activity/Vol] 75 U/L Normal 46-116 [facility] Comment on above: Performed By: #### C JIMENA #### [facility] [place] [facility] [address] [place] [address] Dr. Marta Ashford ALT [Catalytic activity/Vol] 40 U/L Normal 16-63 [facility] [place] Comment on above: Performed By: #### C JIMENA #### [facility] [place] [facility] [address] [place] [address] Dr. Marta Ashford AST [Catalytic activity/Vol] 24 U/L Normal 15-37 [facility] [place] Comment on above: Performed By: #### C JIMENA #### [facility] [place] [facility] [address] [place] [address] Dr. Marta Ashford BILI, CONJUGATED 0.1 mg/dL Normal 0.0-0.2 [facility] Comment on above: Performed By: #### C JIMENA #### [facility] [place] [facility] [address] [address] [address] Marta Ashford Bilirubin [Mass/Vol] 0.3 mg/dL Normal 0.2-1.0 [facility] Comment on above: Performed By: #### C BCMAN #### [facility] [place] [facility] [address] [address] [address] Marta Ashford Globulin (S) [Mass/Vol] 4.1 g/dL Normal [facility] Comment on above: Performed By: #### C BCMAN #### [facility] [place] [facility] [address] [place] [address] Dr. Marta Ashford Protein [Mass/Vol] 7.7 g/dL Normal 6.1-8.2 [facility] Comment on above: Performed By: #### C BCVALERY #### [facility] [place] [facility] [address] [place] [address] Dr. Marta Ashford PROF CHEM 8 (BAS METB)on Anion gap [Moles/Vol] 11.0 mmol/L Normal [facility] Comment on above: Performed By: #### C BCVALERY #### [facility] [place] [facility] [address] [place] [address] Dr. Marta Ashford Calcium [Mass/Vol] 8.6 mg/dL Normal 8.5-10.1 [facility] Comment on above: Performed By: #### C BCVALERY #### [facility] [place] [facility] [address] [place] [address] Dr. Marta Ashford Chloride [Moles/Vol] 99 mmol/L Normal 98-107 [facility] [place] Comment on above: Performed By: #### C BCVALERY #### [facility] [place] [facility] [address] [place] [address] Dr. Marta Ashford CO2 [Moles/Vol] 27.0 mmol/L Normal 21.0-32.0 [facility] Comment on above: Performed By: #### C BCVALERY #### [facility] [place] [facility] [address] [place] [address] Dr. Marta Ashford Creatinine [Mass/Vol] 1.00 mg/dL Normal 0.70-1.30 [facility] Comment on above: Performed By: #### C BCVALERY #### [facility] [place] [facility] [address] [address] [address] Marta Ashford EGFR-AF DANISH >60 Normal >=60 [facility] Comment on above: Performed By: #### C BCVALERY #### [facility] [place] [facility] [address] [place] [address] Dr. Marta Ashford EGFR-NON AF DANISH >60 Normal >=60 [facility] Comment on above: Performed By: #### C BCMAN #### [facility] [place] [facility] [address] [address] [address] Marta Ashford Glucose [Mass/Vol] 289 mg/dL Critically high 74-106 [facility] Comment on above: Performed By: #### C JIMENA #### [facility] [place] [facility] [address] [place] [address] Dr. Marta Ashford Potassium [Moles/Vol] 4.0 mmol/L Normal 3.5-5.1 [facility] Comment on above: Performed By: #### C JIMENA #### [facility] [place] [facility] [address] [place] [address] Dr. Marta Ashford Sodium [Moles/Vol] 133 mmol/L Critically low 136-145 [facility] Comment on above: Performed By: #### C JIMENA #### [facility] [place] [facility] [address] [place] [address] Dr. Marta Ashford Urea nitrogen [Mass/Vol] 21.0 mg/dL Critically high 7.0-18.0 [facility] Comment on above: Performed By: #### C BCVALERY #### [facility] [place] [facility] [address] [place] [address] Dr. Marta Ashford Urea nitrogen/Creatinine [Mass ratio] 21.0 mg/mg Normal [facility] Comment on above: Performed By: #### C JMIENA #### [facility] [place] [facility] [address] [place] [address] Dr. Marta Ashford TSHon 09-10-2021 TSH 2.331 uIU/mL Normal 0.470-4.68 0 [facility] Comment on above: Performed By: #### C JIMENA #### [facility] [place] [facility] [address] [place] [address] Dr. Marta Ashford TSH RANGE SEE BELOW Normal [facility] Comment on above: Result Comment: <0.3 4 UIU/ml HYPERTHYROID 0.34-5.60 UIU/ml EUTHYROID >5.60 UIU/ml HYPOTHYROID Performed By: #### C JIMENA #### [facility] [place] [facility] [address] [place] [address] Dr. Marta Ashford BLOOD CULTURE ID/SENSon 08-09 Aerobe ID + Suscept Final report Abnormal [facility] [place] Comment on above: Performed By: #### C XPOSBL #### [facility] [place] [facility] [address] [place] [address] Dr. Marta Ashford Antimicrobial Susceptibility Comment Normal [facility] [place] Comment on above: Result Comment: S = [...] S Performed By: #### C XPOSBL #### [facility] [place] [facility] [address] [place] [address] Dr. Marta Ashford Result 1 Comment Abnormal [facility] [place] Comment on above: Result Comment: Esch erichia coli, identified by an automated biochemical system. Received aerobic bottle only. Performed By: #### C XPOSBL #### [facility] [place] [facility] [address] [place] [address] Dr. Marta Ashford CBC AUTO DIFFon 08-18-2021 BASO # 0.1 103/ul Normal 0.0-0.1 [facility] Comment on above: Performed By: #### A 1C #### [facility] [place] [facility] [address] [place] [address] Dr. Marta Ashford Basophils/100 WBC (Bld) 0.5 % Normal 0.2-2.0 [facility] [place] Comment on above: Performed By: #### A 1C #### [facility] [place] [facility] [address] [place] [address] Dr. Marta Ashford EO # 0.1 103/ul Normal 0.0-0.7 [facility] Comment on above: Performed By: #### A 1C #### [facility] [place] [facility] [address] [place] [address] Dr. Marta Ashford Eosinophils/100 WBC (Bld) 0.8 % Critically low 0.9-7.0 [facility] Comment on above: Performed By: #### A 1C #### [facility] [place] [facility] [address] [place] [address] Dr. Marta Ashford Erythrocyte distribution width (RBC) [Ratio] 12.8 % Normal 11.0-15.0 [facility] Comment on above: Performed By: #### A 1C #### [facility] [place] [facility] [address] [place] [address] Dr. Marta Ashford Hematocrit (Bld) [Volume fraction] 40.1 % Critically low 42.0-54.0 [facility] Comment on above: Performed By: #### A 1C #### [facility] [place] [facility] [address] [place] [address] Dr. Marta Ashford Hemoglobin (Bld) [Mass/Vol] 12.9 g/dL Critically low 14.0-18.0 [facility] Comment on above: Performed By: #### A 1C #### [facility] [place] [facility] [address] [place] [address] Dr. Marta Ashford IG # 0.17 10e3/ul Critically high 0.00-0.03 [facility] Comment on above: Performed By: #### A 1C #### [facility] [place] [facility] [address] [place] [address] Dr. Marta Ashford IG % 1.0 % Critically high 0.0-0.5 [facility] Comment on above: Performed By: #### A 1C #### [facility] [place] [facility] [address] [place] [address] Dr. Marta Ashford LYMPH # 3.3 103/ul Normal 1.2-3.8 [facility] [place] Comment on above: Performed By: #### A 1C #### [facility] [place] [facility] [address] [place] [address] Dr. Marta Ashford Lymphocytes/100 WBC (Bld) 19.0 % Critically low 20.5-60.0 [facility] Comment on above: Performed By: #### A 1C #### [facility] [place] [facility] [address] [place] [address] Dr. Marta Ashford MANUAL DIFF REQ NO Normal [facility] Comment on above: Performed By: #### A 1C #### [facility] [place] [facility] [address] [place] [address] Dr. Marta Ashford MCH (RBC) [Entitic mass] 30.5 pg Normal 25.9-34.0 [facility] Comment on above: Performed By: #### A 1C #### [facility] [place] [facility] [address] [place] [address] Dr. Marta Ashford MCHC (RBC) [Mass/Vol] 32.2 g/dL Normal 29.9-35.2 [facility] Comment on above: Performed By: #### A 1C #### [facility] [place] [facility] [address] [place] [address] Dr. Marta Ashford MCV (RBC) [Entitic vol] 94.8 fL Critically high 80.0-94.0 [facility] Comment on above: Performed By: #### A 1C #### [facility] [place] [facility] [address] [place] [address] Dr. Marta Ashford MONO # 1.2 103/ul Critically high 0.3-0.8 [facility] Comment on above: Performed By: #### A 1C #### [facility] [place] [facility] [address] [place] [address] Dr. Marta Ashford Monocytes/100 WBC (Bld) 6.7 % Normal 1.7-12.0 [facility] [place] Comment on above: Performed By: #### A 1C #### [facility] [place] [facility] [address] [place] [address] Dr. Marta Ashford NEUT # 12.5 103/ul Critically high 1.4-6.5 [facility] [place] Comment on above: Performed By: #### A 1C #### [facility] [place] [facility] [address] [address] [address] Marta Ashford Neutrophils/100 WBC (Bld) 72.0 % Normal 43.0-75.0 [facility] Comment on above: Performed By: #### A 1C #### [facility] [place] [facility] [address] [address] [address] Marta Ashford Platelet mean volume (Bld) [Entitic vol] 11.8 fL Normal 9.5-13.5 [facility] Comment on above: Performed By: #### A 1C #### [facility] [place] [facility] [address] [address] [address] Marta Ashford PLT 149 103/ul Critically low 150-450 [facility] Comment on above: Performed By: #### A 1C #### [facility] [place] [facility] [address] [place] [address] Dr. Marta Ashford RBC 4.23 106/ul Critically low 4.70-6.10 [facility] Comment on above: Performed By: #### A 1C #### [facility] [place] [facility] [address] [address] [address] Marta Ashford WBC 17.4 103/ul Critically high 4.0-11.0 [facility] Comment on above: Performed By: #### A 1C #### [facility] [place] [facility] [address] [place] [address] Dr. Marta Ashford CULTURE URINEon 08-18-2021 CULTURE [...] Trimethoprim/Sulfamethoxazo le <=20 S F Normal [facility] [place] Comment on above: Performed By: #### A 1C #### [facility] [place] [facility] [address] [address] [address] Marta Ashford PH VENOUS BLOODon 08-18-2021 PCO2 VENOUS 36.1 mmHg Critically low 40.0-52.0 [facility] Comment on above: Performed By: #### A 1C #### [facility] [place] [facility] [address] [place] [address] Dr. Marta Ashford pH VENOUS 7.452 Critically high 7.330-7.43 0 [facility] Comment on above: Performed By: #### A 1C #### [facility] [place] [facility] [address] [place] [address] Dr. Marta Ashford POINT OF CARE GLUCOSEon 08-09 Glucose [Mass/Vol] 276 mg/dL Critically high 74-106 [facility] Comment on above: Performed By: #### P OCGLUC #### [facility] [place] [facility] [address] [place] [address] Dr. Marta Ashford PROF CHEM 8 (BAS METB)on Anion gap [Moles/Vol] 12.5 mmol/L Normal [facility] Comment on above: Performed By: #### P HVEN #### [facility] [place] [facility] [address] [place] [address] Dr. Marta Ashford Calcium [Mass/Vol] 8.5 mg/dL Normal 8.5-10.1 [facility] Comment on above: Performed By: #### P HVEN #### [facility] [place] [facility] [address] [place] [address] Dr. Marta Ashford Chloride [Moles/Vol] 105 mmol/L Normal 98-107 [facility] Comment on above: Performed By: #### P HVEN #### [facility] [place] [facility] [address] [place] [address] Dr. Marta Ashford CO2 [Moles/Vol] 25.5 mmol/L Normal 22.0-30.0 [facility] Comment on above: Performed By: #### P HVEN #### [facility] [place] [facility] [address] [place] [address] Dr. Marta Ashford Creatinine [Mass/Vol] 0.90 mg/dL Normal 0.66-1.25 [facility] Comment on above: Performed By: #### P HVEN #### [facility] [place] [facility] [address] [place] [address] Dr. Marta Ashford EGFR-AF DANISH >60 Normal >=60 [facility] Comment on above: Performed By: #### P HVEN #### [facility] [place] [facility] [address] [place] [address] Dr. Marta Ashford EGFR-NON AF DANISH >60 Normal >=60 [facility] Comment on above: Performed By: #### P HVEN #### [facility] [place] [facility] [address] [place] [address] Dr. Marta Ashford Glucose [Mass/Vol] 239 mg/dL Critically high 74-106 [facility] Comment on above: Performed By: #### P HVEN #### [facility] [address] [place] [address] Dr. Marta Ashford Potassium [Moles/Vol] 4.0 mmol/L Normal 3.4-5.0 [facility] Comment on above: Performed By: #### P HVEN #### [facility] [place] [facility] [address] [place] [address] Dr. Marta Ashford Sodium [Moles/Vol] 139 mmol/L Normal 137-145 [facility] Comment on above: Performed By: #### P HVEN #### [facility] [place] [facility] [address] [place] [address] Dr. Marta Ashford Urea nitrogen [Mass/Vol] 13.0 mg/dL Normal 7.0-18.0 [facility] Comment on above: Performed By: #### P HVEN #### [facility] [place] [facility] [address] [place] [address] Dr. Marta Ashford Urea nitrogen/Creatinine [Mass ratio] 14.4 mg/mg Normal [facility] Comment on above: Performed By: #### P HVEN #### [facility] [place] [facility] [address] [place] [address] Dr. Marta Ashford CBC W MANUAL DIFFon 04-09-20 22 ATYPICAL LYMPH # Normal [facility] Comment on above: Performed By: #### C BCMAN #### [facility] [place] [facility] [address] [place] [address] Dr. Marta Ashford ATYPICAL LYMPH % Normal [facility] Comment on above: Performed By: #### C BCMAN #### [facility] [place] [facility] [address] [place] [address] Dr. Marta Ashford BAND # 2.7 103/ul Critically high 0.0-0.3 [facility] Comment on above: Performed By: #### C BCMAN #### [facility] [place] [facility] [address] [place] [address] Dr. Marta Ashford BAND % 15 % Critically high 0-5 [facility] Comment on above: Performed By: #### C BCMAN #### [facility] [facility] [address] [place] [address] Dr. Marta Ashford BASOM # 0.00 103/ul Normal 0.00-0.10 [facility] Comment on above: Performed By: #### C BCVALERY #### [facility] [place] [facility] [address] [place] [address] Dr. Marta Ashford BASOM % 0.0 % Critically low 0.2-2.0 [facility] Comment on above: Performed By: #### C BCVALERY #### [facility] [address] [place] [address] Dr. Marta Ashford BLAST # Normal [facility] Comment on above: Performed By: #### C BCVALERY #### [facility] [address] [place] [address] Dr. Marta Ashford BLAST % Normal [facility] Comment on above: Performed By: #### C BCVALERY #### [facility] [address] [place] [address] Dr. Marta Ashford CORRECTED WBC Normal 4.0-11.0 [facility] Comment on above: Performed By: #### C BCMAN #### [facility] [address] [place] [address] Dr. Marta Ashford EOS # 0.00 103/ul Normal 0.00-0.70 [facility] Comment on above: Performed By: #### C JIMENA #### [facility] [address] [address] [address] Marta Ashford EOS% 0.0 % Critically low 0.9-7.0 [facility] Comment on above: Performed By: #### C JIMENA #### [facility] [address] [address] [address] Marta Ashford HCT 37.5 % Critically low 42.0-54.0 [facility] Comment on above: Performed By: #### C JIMENA #### [facility] [address] [address] [address] Marta Ashford HGB 12.1 g/dl Critically low 14.0-18.0 [facility] Comment on above: Performed By: #### C JIMENA #### [facility] [address] [address] [address] Marta Ashford LYMPHM # 3.20 103/ul Normal 1.20-3.80 [facility] Comment on above: Performed By: #### C JIMENA #### [facility] [address] [place] [address] Dr. Marta Ashford LYMPHM% 18.0 % Critically low 20.5-60.0 [facility] Comment on above: Performed By: #### C JIMENA #### [facility] [address] [address] [address] Marta Ashford MCH 31.2 pg Normal 25.9-34.0 [facility] Comment on above: Performed By: #### C JIMENA #### [facility] [address] [place] [address] Dr. Marta Ashford MCHC 32.3 g/dl Normal 29.9-35.2 [facility] [place] Comment on above: Performed By: #### C JIMENA #### [facility] [address] [place] [address] Dr. Marta Ashford MCV 96.6 fL Critically high 80.0-94.0 [facility] Comment on above: Performed By: #### C JIMENA #### [facility] [address] [place] [address] Dr. Marta Ashford METAMYELOCYTE # Normal [facility] Comment on above: Performed By: #### C JIMENA #### [facility] [address] [address] [address] Marta Ashford METAMYELOCYTE % Normal [facility] Comment on above: Performed By: #### C JIMENA #### [facility] [address] [address] [address] Marta Ashford MONOM# 1.25 103/ul Critically high 0.30-0.80 [facility] Comment on above: Performed By: #### C JIMENA #### [facility] [address] [address] [address] Marta Ashford MONOM% 7.0 % Normal 1.7-12.0 [facility] Comment on above: Performed By: #### C JIMENA #### [facility] [address] [place] [address] Dr. Marta Ashford MPV 11.4 fL Normal 9.5-13.5 [facility] Comment on above: Performed By: #### C JIMENA #### [facility] [address] [address] [address] Marta Ashford MYELOCYTE # Normal [facility] Comment on above: Performed By: #### C JIMENA #### [facility] [address] [place] [address] Dr. Marta Ashford MYELOCYTE % Normal [facility] [place] Comment on above: Performed By: #### C JIMENA #### [facility] [address] [place] [address] Dr. Marta Ashford NRBC Normal [facility] Comment on above: Performed By: #### C BCVALERY #### [facility] [address] [address] [address] Marta Ashford PLT 106 103/ul Critically low 150-450 [facility] Comment on above: Performed By: #### C JIMENA #### [facility] [address] [address] [address] Marta Ashford RBC 3.88 106/ul Critically low 4.70-6.10 [facility] Comment on above: Performed By: #### C JIMENA #### [facility] [address] [address] [address] Marta Ashford RDW 13.1 % Normal 11.0-15.0 [facility] Comment on above: Performed By: #### C JIMENA #### [facility] [address] [address] [address] Marta Ashford SEG # 10.68 103/ul Critically high 1.40-6.50 [facility] Comment on above: Performed By: #### C JIMENA #### [facility] [address] [address] [address] Marta Ashford SEG % 60.0 % Normal 43.0-75.0 [facility] Comment on above: Performed By: #### C JIMENA #### [facility] [address] [address] [address] Marta Ashford WBC 17.8 103/ul Critically high 4.0-11.0 [facility] Comment on above: Performed By: #### C JIMENA #### [facility] [address] [address] [address] Marta Ashford PH VENOUS BLOODon 08-17-2021 PCO2 VENOUS 37.5 mmHg Critically low 40.0-52.0 [facility] Comment on above: Performed By: #### P HVEN #### [facility] [address] [address] [address] Marta Ashford pH VENOUS 7.390 Normal 7.330-7.43 0 [facility] Comment on above: Performed By: #### P HVEN #### [facility] [address] [address] [address] Marta Ashford POINT OF CARE GLUCOSEon 04-0 Glucose [Mass/Vol] 261 mg/dL Critically high 74-[address] [facility] Comment on above: Performed By: #### A 1C #### [facility] [address] [address] [address] Marta Ashford Glucose [Mass/Vol] 213 mg/dL Critically high 74-[address] [facility] Comment on above: Performed By: #### A 1C #### [facility] [address] [address] [address] Marta Ashford Glucose [Mass/Vol] 305 mg/dL Critically high 74-[address] [facility] Comment on above: Performed By: #### A 1C #### [facility] [address] [place] [address] Dr. Marta Ashford PROF CHEM 8 (BAS METB)on Anion gap [Moles/Vol] 13.8 mmol/L Normal [facility] Comment on above: Performed By: #### A 1C #### [facility] [address] [place] [address] Dr. Marta Ashford Calcium [Mass/Vol] 7.3 mg/dL Critically low 8.5-10.1 [facility] Comment on above: Performed By: #### A 1C #### [facility] [address] [place] [address] Dr. Marta Ashford Chloride [Moles/Vol] 108 mmol/L Critically high 98-107 [facility] Comment on above: Performed By: #### A 1C #### [facility] [address] [place] [address] Dr. Marta Ashford CO2 [Moles/Vol] 22.2 mmol/L Normal 22.0-30.0 [facility] Comment on above: Performed By: #### A 1C #### [facility] [address] [place] [address] Dr. Marta Ashford Creatinine [Mass/Vol] 0.95 mg/dL Normal 0.66-1.25 [facility] Comment on above: Performed By: #### A 1C #### [facility] [address] [place] [address] Dr. Marta Ashford EGFR-AF DANISH >60 Normal >=60 [facility] Comment on above: Performed By: #### A 1C #### [facility] [address] [place] [address] Dr. Marta Ashford EGFR-NON AF DANISH >60 Normal >=60 [facility] Comment on above: Performed By: #### A 1C #### [facility] [address] [place] [address] Dr. Marta Ashford Glucose [Mass/Vol] 181 mg/dL Critically high 74-106 [facility] Comment on above: Performed By: #### A 1C #### [facility] [address] [place] [address] Dr. Marta Ashford Potassium [Moles/Vol] 4.0 mmol/L Normal 3.4-5.0 [facility] Comment on above: Performed By: #### A 1C #### [facility] [address] [place] [address] Dr. Marta Ashford Sodium [Moles/Vol] 140 mmol/L Normal 137-145 [facility] Comment on above: Performed By: #### A 1C #### [facility] [address] [place] [address] Dr. Marta Ashford Urea nitrogen [Mass/Vol] 17.0 mg/dL Normal 7.0-18.0 [facility] Comment on above: Performed By: #### A 1C #### [facility] [address] [place] [address] Dr. Marta Ashford Urea nitrogen/Creatinine [Mass ratio] 17.9 mg/mg [facility] Comment on above: Performed By: #### A 1C #### [facility] [address] [place] [address] Dr. Marta Ashford BLOOD CULTURE ID PANELon A. baumannii Not detected [facility] Comment on above: Performed By: #### A 1C #### [facility] [address] [place] [address] Dr. Marta Ashford BCID CONTROLS PASSED Normal [facility] Comment on above: Performed By: #### A 1C #### [facility] [address] [place] [address] Dr. Marta Ashford BCIDBTHD BLOOD CULTURE BOTTLE INFORMATION Normal [facility] Comment on above: Performed By: #### A 1C #### [facility] [address] [place] [address] Dr. Marta Ashford BCIDHD1 ANTIMICROBIAL RESIST ANCE GENES Normal [facility] Comment on above: Performed By: #### A 1C #### [facility] [address] [place] [address] Dr. Marta Ashford BCIDHD2 SEE BELOW [facility] Comment on above: Result Comment: KPC- carbapenem resistance gene, mecA- methecillin resistance gene, van A/B- vancomycin resistance gene Note: Antimicrobial resitance can occur via multiple mechanisms. A Not Detected result for the Film[employer] antomicrobial resistance gene assays does not indicate antimicrobial susceptibility. Subculturing is required for specis identificationand susceptibility testing of isolates. Performed By: #### A 1C #### [facility] [address] [place] [address] Dr. Marta Ashford BCIDHD3 Positive [facility] Comment on above: Performed By: #### A 1C #### [facility] [address] [place] [address] Dr. Marta Ashford BCIDHD4 Negative [facility] Comment on above: Performed By: #### A 1C #### [facility] [address] [place] [address] Dr. Marta Ashford BCIDHD5 YEAST [facility] Comment on above: Performed By: #### A 1C #### [facility] [address] [place] [address] Dr. Marta Ashford BCIDHD6 SEE BELOW [facility] Comment on above: Result Comment: Note : All genus and species BCID Film[employer] results will be verified post subculturing via Maldi-Tof MS testing methodology. Performed By: #### A 1C #### [facility] [address] [place] [address] Dr. Marta Ashford Bottle Set: Set 2 [facility] Comment on above: Performed By: #### A 1C #### [facility] [address] [place] [address] Dr. Marta Ashford Bottle: Aerobic Normal [facility] Comment on above: Performed By: #### A 1C #### [facility] [address] [place] [address] Dr. Marta Ashford Surekha albicans Not detected [facility] Comment on above: Performed By: #### A 1C #### [facility] [address] [place] [address] Dr. Marta Ashford Surekha glabrata Not detected Normal [facility] Comment on above: Performed By: #### A 1C #### [facility] [address] [address] [address] Marta Ashford Surekha Krusei Not detected Normal [facility] Comment on above: Performed By: #### A 1C #### [facility] [address] [address] [address] Marta Ashford Surekha Parapsilosis Not detected Normal [facility] Comment on above: Performed By: #### A 1C #### [facility] [address] [place] [address] Dr. Marta Ashford Surekha Tropicalis Not detected Normal [facility] Comment on above: Performed By: #### A 1C #### [facility] [address] [place] [address] Dr. Marta Ashford E. Cloacae complex Not detected Normal [facility] [place] Comment on above: Performed By: #### A 1C #### [facility] [address] [place] [address] Dr. Marta Ashford Enterobacteriaceae Detected Critically abnormal [facility] Comment on above: Performed By: #### A 1C #### [facility] [address] [place] [address] Dr. Marta Ashford Enterococcus Not detected Normal [facility] Comment on above: Performed By: #### A 1C #### [facility] [address] [place] [address] Dr. Marta Ashford Escheria coli Detected Critically abnormal [facility] Comment on above: Performed By: #### A 1C #### [facility] [address] [place] [address] Dr. Marta Ashford K. oxytoca Not detected Normal [facility] Comment on above: Performed By: #### A 1C #### [facility] [address] [place] [address] Dr. Marta Ashford K. pneumoniae Not detected Normal [facility] [place] Comment on above: Performed By: #### A 1C #### [facility] [address] [place] [address] Dr. Marta Ashford KPC Resistant Gene Not detected Normal [facility] Comment on above: Performed By: #### A 1C #### [facility] [address] [place] [address] Dr. Marta Ashford List. monocytogenes Not detected Normal [facility] Comment on above: Performed By: #### A 1C #### [facility] [address] [place] [address] Dr. Marta Ashford mecA Resistant Gene Not Applicable Normal [facility] Comment on above: Performed By: #### A 1C #### [facility] [address] [place] [address] Dr. Marta Ashford Proteus Not detected Normal [facility] Comment on above: Performed By: #### A 1C #### [facility] [address] [place] [address] Dr. Marta Ashford Pseud. aeruginosa Not detected Normal [facility] Comment on above: Performed By: #### A 1C #### [facility] [address] [place] [address] Dr. Marta Ashford Seratia marcescens Not detected Normal [facility] Comment on above: Performed By: #### A 1C #### [facility] [address] [place] [address] Dr. Marta Ashford Site: left hand Normal [facility] [place] Comment on above: Performed By: #### A 1C #### [facility] [address] [place] [address] Dr. Marta Ashford Staph. aureus Not detected Normal [facility] Comment on above: Performed By: #### A 1C #### [facility] [address] [place] [address] Dr. Marta Ashford Staphylococcus Not detected Normal [facility] [place] Comment on above: Performed By: #### A 1C #### [facility] [address] [place] [address] Dr. Marta Ashford Strep. agalactiae Not detected Normal [facility] [place] Comment on above: Performed By: #### A 1C #### [facility] [address] [place] [address] Dr. Marta Ashford Strep. pneumoniae Not detected Normal [facility] Comment on above: Performed By: #### A 1C #### [facility] [address] [place] [address] Dr. Marta Ashford Strep. pyogenes Not detected Normal [facility] Comment on above: Performed By: #### A 1C #### [facility] [address] [place] [address] Dr. Marta Ashford Streptococcus Not detected Normal [facility] Comment on above: Performed By: #### A 1C #### [facility] [address] [place] [address] Dr. Marta Ashford Cheyenne/B Resist. Gene Not Applicable Normal [facility] Comment on above: Performed By: #### A 1C #### [facility] [address] [place] [address] Dr. Marta Ashford CARDIAC PAOLO 3-6on 2 CK [Catalytic activity/Vol] 112 U/L Normal 55-170 [facility] Comment on above: Performed By: #### P HVEN #### [facility] [address] [place] [address] Dr. Marta Ashford CK.MB [Mass/Vol] 1.13 ng/mL Normal <=2.37 [facility] Comment on above: Performed By: #### P HVEN #### [facility] [address] [place] [address] Dr. Marta Ashford HSTROP 283.1 pg/mL Critically high 4.0-42.2 [facility] Comment on above: Result Comment: CUT- OFF POINTS HAVE BEEN ESTABLISHED BASED ON THE FOURTH UNIVERSAL DEFINITIONS OF MYOCARDIAL INFARCTION. THE UPPER REFERENCE LIMIT (URL) OF TROPONIN, DEFINED THE 99TH PERCENTILE OF cTnI DISTRIBUTION IN A REFERENCE POPULATION, HAS BEEN CONFIRMED THE DECISION THRESHOLD FOR AK DIAGNOSIS. TEST REPEATED CRITICAL VALUE VERIFIED Performed By: #### P HVEN #### [facility] [address] [place] [address] Dr. Marta Ashford CK [Catalytic activity/Vol] 98 U/L Normal 55-170 [facility] Comment on above: Performed By: #### A 1C #### [facility] [address] [place] [address] Dr. Marta Ashford CK.MB [Mass/Vol] 1.08 ng/mL Normal <=2.37 [facility] [place] Comment on above: Performed By: #### A 1C #### [facility] [address] [place] [address] Dr. Marta Ashford HSTROP 310.8 pg/mL Critically high 4.0-42.2 [facility] Comment on above: Result Comment: CUT- OFF POINTS HAVE BEEN ESTABLISHED BASED ON THE FOURTH UNIVERSAL DEFINITIONS OF MYOCARDIAL INFARCTION. THE UPPER REFERENCE LIMIT (URL) OF TROPONIN, DEFINED THE 99TH PERCENTILE OF cTnI DISTRIBUTION IN A REFERENCE POPULATION, HAS BEEN CONFIRMED THE DECISION THRESHOLD FOR AK DIAGNOSIS. test repeated Performed By: #### A 1C #### [facility] [address] [place] [address] Dr. Marta Ashford CARDIAC PAOLO ADMITon 022 CK [Catalytic activity/Vol] 100 U/L Normal 55-170 [facility] Comment on above: Performed By: #### Shira HESS #### [facility] [address] [place] [address] Dr. Marta Ashford CK.MB [Mass/Vol] 1.20 ng/mL Normal <=2.37 [facility] Comment on above: Performed By: #### C JIMENA #### [facility] [address] [place] [address] Dr. Marta Ashford HSTROP 51.6 pg/mL Critically high 4.0-42.2 [facility] Comment on above: Result Comment: CUT- OFF POINTS HAVE BEEN ESTABLISHED BASED ON THE FOURTH UNIVERSAL DEFINITIONS OF MYOCARDIAL INFARCTION. THE UPPER REFERENCE LIMIT (URL) OF TROPONIN, DEFINED THE 99TH PERCENTILE OF cTnI DISTRIBUTION IN A REFERENCE POPULATION, HAS BEEN CONFIRMED THE DECISION THRESHOLD FOR [place] DIAGNOSIS. Performed By: #### C JIMENA #### [facility] [address] [place] [address] Dr. Marta Ashford ANGELICA 77.0 ng/mL Normal <=121.0 [facility] [place] Comment on above: Performed By: #### C JIMENA #### [facility] [address] [address] [address] Marta Ashford CBC AUTO DIFFon 08-16-2021 BASO # 0.0 103/ul Normal 0.0-0.1 [facility] Comment on above: Performed By: #### A 1C #### [facility] [address] [place] [address] Dr. Marta Ashford Basophils/100 WBC (Bld) 0.2 % Normal 0.2-2.0 [facility] Comment on above: Performed By: #### A 1C #### [facility] [address] [place] [address] Dr. Marta Ashford EO # 0.0 103/ul Normal 0.0-0.7 [facility] Comment on above: Performed By: #### A 1C #### [facility] [address] [place] [address] Dr. Marta Ashford Eosinophils/100 WBC (Bld) 0.2 % Critically low 0.9-7.0 [facility] Comment on above: Performed By: #### A 1C #### [facility] [address] [place] [address] Dr. Marta Ashford Erythrocyte distribution width (RBC) [Ratio] 12.8 % Normal 11.0-15.0 [facility] Comment on above: Performed By: #### A 1C #### [facility] [address] [place] [address] Dr. Marta Ashford Hematocrit (Bld) [Volume fraction] 38.4 % Critically low 42.0-54.0 [facility] Comment on above: Performed By: #### A 1C #### [facility] [address] [place] [address] Dr. Marta Ashford Hemoglobin (Bld) [Mass/Vol] 12.7 g/dL Critically low 14.0-18.0 [facility] Comment on above: Performed By: #### A 1C #### [facility] [address] [place] [address] Dr. Marta Ashford IG # 0.03 10e3/ul Normal 0.00-0.03 [facility] Comment on above: Performed By: #### A 1C #### [facility] [address] [address] [address] Marta Ashford IG % 0.6 % Critically high 0.0-0.5 [facility] Comment on above: Performed By: #### A 1C #### [facility] [address] [address] [address] Marta Ashford LYMPH # 0.5 103/ul Critically low 1.2-3.8 [facility] Comment on above: Performed By: #### A 1C #### [facility] [address] [place] [address] Dr. Marta Ashford Lymphocytes/100 WBC (Bld) 11.1 % Critically low 20.5-60.0 [facility] Comment on above: Result Comment: dif. not rqd. same as 08/16/21 Performed By: #### A 1C #### [facility] [address] [place] [address] Dr. Marta Ashford MANUAL DIFF REQ NO Normal [facility] Comment on above: Performed By: #### A 1C #### [facility] [address] [address] [address] Marta Ashford MCH (RBC) [Entitic mass] 31.1 pg Normal 25.9-34.0 [facility] Comment on above: Performed By: #### A 1C #### [facility] [address] [place] [address] Dr. Marta Ashford MCHC (RBC) [Mass/Vol] 33.1 g/dL Normal 29.9-35.2 [facility] Comment on above: Performed By: #### A 1C #### [facility] [address] [place] [address] Dr. Marta Ashford MCV (RBC) [Entitic vol] 93.9 fL Normal 80.0-94.0 [facility] Comment on above: Performed By: #### A 1C #### [facility] [address] [place] [address] Dr. Marta Ashford MONO # 0.0 103/ul Critically low 0.3-0.8 [facility] Comment on above: Performed By: #### A 1C #### [facility] [address] [place] [address] Dr. Marta Ashford Monocytes/100 WBC (Bld) 0.6 % Critically low 1.7-12.0 [facility] Comment on above: Performed By: #### A 1C #### [facility] [address] [address] [address] Marta Ashford NEUT # 4.2 103/ul Normal 1.4-6.5 [facility] Comment on above: Performed By: #### A 1C #### [facility] [address] [place] [address] Dr. Marta Ashford Neutrophils/100 WBC (Bld) 87.3 % Critically high 43.0-75.0 [facility] Comment on above: Performed By: #### A 1C #### [facility] [address] [place] [address] Dr. Marta Ashford Platelet mean volume (Bld) [Entitic vol] 11.1 fL Normal 9.5-13.5 [facility] Comment on above: Performed By: #### A 1C #### [facility] [address] [place] [address] Dr. Marta Ashford PLT 114 103/ul Critically low 150-450 [facility] Comment on above: Performed By: #### A 1C #### [facility] [address] [place] [address] Dr. Marta Ashford RBC 4.09 106/ul Critically low 4.70-6.10 [facility] Comment on above: Performed By: #### A 1C #### [facility] [address] [place] [address] Dr. Marta Ashford WBC 4.8 103/ul Normal 4.0-11.0 [facility] Comment on above: Performed By: #### A 1C #### [facility] [address] [place] [address] Dr. Marta Ashford CBC W MANUAL DIFFon 08-17-19 22 ATYPICAL LYMPH # Normal [facility] Comment on above: Performed By: #### A 1C #### [facility] [address] [place] [address] Dr. Marta Ashford ATYPICAL LYMPH % Normal [facility] Comment on above: Performed By: #### A 1C #### [facility] [address] [place] [address] Dr. Marta Ashford BAND # Normal 0.0-0.3 [facility] Comment on above: Performed By: #### A 1C #### [facility] [address] [place] [address] Dr. Marta Ashford BAND % Normal 0-5 [facility] Comment on above: Performed By: #### A 1C #### [facility] [address] [place] [address] Dr. Marta Ashford BASOM # 0.00 103/ul Normal 0.00-0.10 [facility] Comment on above: Performed By: #### A 1C #### [facility] [address] [place] [address] Dr. Marta Ashford BASOM % 0.0 % Critically low 0.2-2.0 [facility] Comment on above: Performed By: #### A 1C #### [facility] [address] [place] [address] Dr. Marta Ashford BLAST # Normal [facility] Comment on above: Performed By: #### A 1C #### [facility] [address] [place] [address] Dr. Marta Ashford BLAST % Normal [facility] Comment on above: Performed By: #### A 1C #### [facility] [address] [place] [address] Dr. Marta Ashford CORRECTED WBC Normal 4.0-11.0 [facility] Comment on above: Performed By: #### A 1C #### [facility] [address] [place] [address] Dr. Marta Ashford EOS # 0.03 103/ul Normal 0.00-0.70 [facility] Comment on above: Performed By: #### A 1C #### [facility] [address] [place] [address] Dr. Marta Ashford EOS% 1.0 % Normal 0.9-7.0 [facility] Comment on above: Performed By: #### A 1C #### [facility] [address] [place] [address] Dr. Marta Ashford HCT 44.0 % Normal 42.0-54.0 [facility] Comment on above: Performed By: #### A 1C #### [facility] [address] [place] [address] Dr. Marta Ashford HGB 14.5 g/dl Normal 14.0-18.0 [facility] Comment on above: Performed By: #### A 1C #### [facility] [address] [place] [address] Dr. Marta Ashford LYMPHM # 0.90 103/ul Critically low 1.20-3.80 [facility] Comment on above: Performed By: #### A 1C #### [facility] [address] [place] [address] Dr. Marta Ashford LYMPHM% 32.0 % Normal 20.5-60.0 [facility] Comment on above: Performed By: #### A 1C #### [facility] [address] [place] [address] Dr. Marta Ashford MCH 31.2 pg Normal 25.9-34.0 [facility] Comment on above: Performed By: #### A 1C #### [facility] [address] [place] [address] Dr. Marta Ashford MCHC 33.0 g/dl Normal 29.9-35.2 [facility] Comment on above: Performed By: #### A 1C #### [facility] [address] [place] [address] Dr. Marta Ashford MCV 94.6 fL Critically high 80.0-94.0 [facility] Comment on above: Performed By: #### A 1C #### [facility] [address] [place] [address] Dr. Marta Ashford METAMYELOCYTE # Normal [facility] Comment on above: Performed By: #### A 1C #### [facility] [address] [place] [address] Dr. Marta Ashford METAMYELOCYTE % Normal [facility] Comment on above: Performed By: #### A 1C #### [facility] [address] [place] [address] Dr. Marta Ashford MONOM# 0.06 103/ul Critically low 0.30-0.80 [facility] Comment on above: Performed By: #### A 1C #### [facility] [address] [place] [address] Dr. Marta Ashford MONOM% 2.0 % Normal 1.7-12.0 [facility] Comment on above: Performed By: #### A 1C #### [facility] [address] [place] [address] Dr. Marta Ashford MPV 10.8 fL Normal 9.5-13.5 [facility] Comment on above: Performed By: #### A 1C #### [facility] [address] [place] [address] Dr. Marta Ashford MYELOCYTE # Normal [facility] Comment on above: Performed By: #### A 1C #### [facility] [address] [place] [address] Dr. Marta Ashford MYELOCYTE % Normal [facility] Comment on above: Performed By: #### A 1C #### [facility] [address] [place] [address] Dr. Marta Ashford NRBC Normal [facility] Comment on above: Performed By: #### A 1C #### [facility] [address] [place] [address] Dr. Marta Ashford PLT 129 103/ul Critically low 150-450 [facility] Comment on above: Performed By: #### A 1C #### [facility] [address] [place] [address] Dr. Marta Ashford RBC 4.65 106/ul Critically low 4.70-6.10 [facility] Comment on above: Performed By: #### A 1C #### [facility] [address] [place] [address] Dr. Marta Ashford RDW 12.9 % Normal 11.0-15.0 [facility] Comment on above: Performed By: #### A 1C #### [facility] [address] [place], [place] [address] Dr. Marta Ashford SEG # 1.82 103/ul Normal 1.40-6.50 [facility] Comment on above: Performed By: #### A 1C #### [facility] [address] [place], [place] [address] Dr. Marta Ashford SEG % 65.0 % Normal 43.0-75.0 [facility] Comment on above: Performed By: #### A 1C #### [facility] [address] [place], [place] [address] Dr. Marta Ashford WBC 2.8 103/ul Critically low 4.0-11.0 [facility] Comment on above: Performed By: #### A 1C #### [facility] [address] [place], [place] [address] ABD/PELVIS WO CONon [...] ROVERTO GREENFIELD Date: 2021-08-16 05:21 Normal [facility] CULTURE BLOODon 08-16-2021 Microscopic examination of blood, culture Culture Observations: No growth at 5 days. Normal [facility] Comment on above: Performed By: #### B [id number] #### [facility] [address] [place] [address] Dr. Marta Ashford Microscopic examination of blood, culture Culture Observations: No growth at 5 days. Normal [facility] Comment on above: Performed By: #### A 1C #### [facility] [address] [place] [address] Dr. Marta Ashford Covid-19 PCR (CVDTBH)on SARS-CoV-2 (COVID-19) RNA NORMA+probe Ql (Unsp spec) Not detected Normal NOT DETECTED [facility] Comment on above: Result Comment: When diagnostic testing is negative, the possibility of a false negative should be considered in the context of a patient's recent exposures and the presence of clinical signs and symptoms consistent with SARS-CoV-2. This test is not yet approved or cleared by the [place] Food and Drug Administration (FDA). This test was developed by [employer], [place], [place]. The performance characteristics of this test were validated by The [facility]. The results are not intended to be used as the sole means for clinical diagnosis or patient management decisions. The [facility] is authorized under Clinical Laboratory Improvement Amendments [...] for this test is supported by the [place] of Health and Human Service's declaration that [...] used). Performed By: #### A 1C #### [facility] [address] [place] [address] Dr. Marta Ashford DRUG SCREEN RAPID (URINE)on 08-16-2021 AMP Negative Normal NEGATIVE [facility] Comment on above: Performed By: #### P HVEN #### [facility] [address] [place] [address] Dr. Marta Ashford BAR Negative Normal NEGATIVE [facility] Comment on above: Performed By: #### P HVEN #### [facility] [address] [place] [address] Dr. Marta Ashford BUP Negative Normal NEGATIVE [facility] Comment on above: Performed By: #### P HVEN #### [facility] [address] [place] [address] Dr. Marta Ashford BZO Negative Normal NEGATIVE [facility] Comment on above: Performed By: #### P HVEN #### [facility] [address] [place] [address] Dr. Marta Ashford ROME Negative Normal NEGATIVE [facility] Comment on above: Performed By: #### P HVEN #### [facility] [address] [place] [address] Dr. Marta Ashford CUT-OFFS SEE BELOW Normal [facility] Comment on above: Result Comment: AMP (Amphetamine): 500ng/mL, BAR (Barbituates): 200 ng/mL, BZO (Benzodiazepines): 150 ng/mL, BUP (Buprenorphine): 10 ng/mL, ROME (Cocaine): 150 ng/mL, mAMP (Methamphetamine): 500 ng/mL, MTD (Methadone): 200 ng/mL, OPI (Opiates): 100 ng/mL, OXY (Oxycodone): 100 ng/mL, PCP (Phencyclidine): 25 ng/mL, PPX (Propoxyphene): 300 ng/mL, THC (Cannabinoids): 50 ng/mL, TCA (Trycyclic Antidepressants): 300 ng/mL Performed By: #### P HVEN #### [facility] [address] [place] [address] Dr. Marta Ashford DRUG CUT HEADER DRUG CLASS TEST SYST EM CUT-OFF CONCENTRATIONS ARE FOLLOWS: Normal [facility] Comment on above: Performed By: #### P HVEN #### [facility] [address] [place] [address] Dr. Marta Ashford mAMP Negative Normal NEGATIVE [facility] Comment on above: Performed By: #### P HVEN #### [facility] [address] [place] [address] Dr. Marta Ashford MTD Negative Normal NEGATIVE [facility] Comment on above: Performed By: #### P HVEN #### [facility] [address] [place] [address] Dr. Marta Ashford OPI Negative Normal NEGATIVE [facility] Comment on above: Performed By: #### P HVEN #### [facility] [address] [place] [address] Dr. Marta Ashford OXY Negative Normal NEGATIVE [facility] Comment on above: Performed By: #### P HVEN #### [facility] [address] [place] [address] Dr. Marta Ashford PCP Negative Normal NEGATIVE [facility] Comment on above: Performed By: #### P HVEN #### [facility] [address] [place] [address] Dr. Marta Ashford PPX Negative Normal NEGATIVE [facility] Comment on above: Performed By: #### P HVEN #### [facility] [address] [place] [address] Dr. Marta Ashford TCA Negative Normal NEGATIVE [facility] Comment on above: Performed By: #### P HVEN #### [facility] [address] [place] [address] Dr. Marta Ashford THC Negative Normal NEGATIVE [facility] Comment on above: Performed By: #### P HVEN #### [facility] [address] [place] [address] Dr. Marta Ashford ER URINE PROFILEon 2 Bilirubin Ql (U) Negative Normal NEGATIVE [facility] Comment on above: Performed By: #### A 1C #### [facility] [address] [place] [address] Dr. Marta Ashford Clarity (U) SL CLOUDY Abnormal CLEAR [facility] Comment on above: Performed By: #### A 1C #### [facility] [address] [place] [address] Dr. Marta Ashford Color (U) YELLOW Normal YELLOW [facility] Comment on above: Performed By: #### A 1C #### [facility] [address] [place] [address] Dr. Marta DUDLEY A micrscopic examina tion will be performed if indicated. Normal [facility] Comment on above: Performed By: #### A 1C #### [facility] [address] [place] [address] Dr. Marta Ashford Glucose Ql (U) 1000 mg/dl Abnormal NEGATIVE [facility] Comment on above: Performed By: #### A 1C #### [facility] [address] [place] [address] Dr. Marta Ashford Hemoglobin Ql (U) SMALL Abnormal NEGATIVE [facility] Comment on above: Performed By: #### A 1C #### [facility] [address] [place] [address] Dr. Marta Ashford Ketones Ql (U) Negative Normal NEGATIVE [facility] Comment on above: Performed By: #### A 1C #### [facility] [address] [place] [address] Dr. Marta Ashford LEUKOCYTES SMALL Abnormal NEGATIVE [facility] Comment on above: Performed By: #### A 1C #### [facility] [address] [place] [address] Dr. Marta Ashford Nitrite Ql (U) Positive Abnormal NEGATIVE [facility] Comment on above: Performed By: #### A 1C #### [facility] [address] [place] [address] Dr. Marta Ashford pH (U) 5.5 [pH] Normal 5-9 [facility] Comment on above: Performed By: #### A 1C #### [facility] [address] [place] [address] Dr. Marta Ashford SPEC GRAVITY 1.020 Normal 1.005-<=1. 025 [facility] Comment on above: Performed By: #### A 1C #### [facility] [address] [place] [address] Dr. Marta Ashford UA PROTEIN TRACE Normal NEGATIVE/ TRACE [facility] Comment on above: Performed By: #### A 1C #### [facility] [address] [place] [address] Dr. Marta Ashford UR MICRO IND INDICATED Normal [facility] Comment on above: Performed By: #### A 1C #### [facility] [address] [place] [address] Dr. Marta Ashford Urobilinogen Qn (U) 0.2 {Brad'U}/dL Normal 0.2 - 1. 0 [facility] Comment on above: Performed By: #### A 1C #### [facility] [address] [place] [address] Dr. Marta Ashford LACTATE/LACTIC ACIDon 2021 Lactate [Moles/Vol] 4.1 mmol/L Critically high 0.7-2.0 [facility] Comment on above: Result Comment: test repeated Performed By: #### L ACT #### [facility] [address] [place] [address] Dr. Marta Ashford Lactate [Moles/Vol] 4.1 mmol/L Critically high 0.7-2.0 [facility] Comment on above: Result Comment: test repeated Performed By: #### L ACT #### [facility] [address] [place] [address] Dr. Marta Ashford OCC BLD IMMUNOASSAYon 2021 OCCULT BLOOD Negative Normal NEGATIVE [facility] Comment on above: Performed By: #### A 1C #### [facility] [address] [place] [address] Dr. Marta Ashford PH VENOUS BLOODon 08-16-2021 PCO2 VENOUS 30.8 mmHg Critically low 40.0-52.0 [facility] Comment on above: Performed By: #### P HVEN #### [facility] [address] [place] [address] Dr. Marta Ashford pH VENOUS 7.400 Normal 7.330-7.43 0 [facility] Comment on above: Performed By: #### P HVEN #### [facility] [facility] [address] [address] [address] Marta Ashford POINT OF CARE GLUCOSEon Glucose [Mass/Vol] 214 mg/dL Critically high [address] [place] [address] Comment on above: Performed By: #### C BCMAN #### [facility] [address] [place] [address] Dr. Marta Ashford Glucose [Mass/Vol] 275 mg/dL Critically high [address] [place] [address] Comment on above: Performed By: #### P HVEN #### [facility] [address] [place] [address] Dr. Marta Ashford Glucose [Mass/Vol] 366 mg/dL Critically high [address] [place] [address] Comment on above: Performed By: #### A 1C #### [facility] [address] [place] [address] Dr. Marta Ashford Glucose [Mass/Vol] 168 mg/dL Critically high [address] [place] [address] Comment on above: Performed By: #### P OCGLUC #### [facility] [address] [place] [address] Dr. Marta Ashford Glucose [Mass/Vol] 214 mg/dL Critically high [address] [place] [address] Comment on above: Performed By: #### A 1C #### [facility] [address] [place] [address] Dr. Marta Ashford PROF CHEM 8 (BAS METB)on Anion gap [Moles/Vol] 17.4 mmol/L Normal [facility] Comment on above: Performed By: #### P HVEN #### [facility] [address] [place] [address] Dr. Marta Ashford Calcium [Mass/Vol] 7.3 mg/dL Critically low 8.5-10.1 Th e [facility] Comment on above: Performed By: #### P HVEN #### [facility] [address] [address] [address] Marta Ashford Chloride [Moles/Vol] 108 mmol/L Critically high 98-107 [facility] Comment on above: Performed By: #### P HVEN #### [facility] [address] [address] [address] Marta Ashford CO2 [Moles/Vol] 20.7 mmol/L Critically low 22.0-30.0 [facility] Comment on above: Performed By: #### P HVEN #### [facility] [address] [address] [address] Marta Ashford Creatinine [Mass/Vol] 1.32 mg/dL Critically high 0.66-1.25 [facility] Comment on above: Performed By: #### P HVEN #### [facility] [address] [address] [address] Marta Ashford EGFR-AF DANISH >60 Normal >=60 [facility] Comment on above: Performed By: #### P HVEN #### [facility] [address] [address] [address] Marta Ashford EGFR-NON AF DANISH 56 mL/min/1.73m2 Critically low >=60 [facility] Comment on above: Performed By: #### P HVEN #### [facility] [address] [address] [address] Marta Ashford Glucose [Mass/Vol] 189 mg/dL Critically high 74-[address] [facility] Comment on above: Performed By: #### P HVEN #### [facility] [address] [address] [address] Marta Ashford Potassium [Moles/Vol] 3.1 mmol/L Critically low 3.4-5.0 [facility] Comment on above: Performed By: #### P HVEN #### [facility] [address] [address] [address] Marta Ashford Sodium [Moles/Vol] 143 mmol/L Normal 137-145 [facility] Comment on above: Performed By: #### P HVRILEY #### [facility] [address] [address] [address] Marta Ashford Urea nitrogen [Mass/Vol] 25.0 mg/dL Critically high 7.0-18.0 [facility] Comment on above: Performed By: #### P HARJITEN #### [facility] [address] [address] [address] Marta Ashford Urea nitrogen/Creatinine [Mass ratio] 18.9 mg/mg Normal [facility] Comment on above: Performed By: #### P JOSE #### [facility] [address] [address] [address] Marta Ashford Anion gap [Moles/Vol] 17.1 mmol/L Normal [facility] Comment on above: Performed By: #### C JIMENA #### [facility] [address] [address] [address] Marta Ashford Calcium [Mass/Vol] 8.2 mg/dL Critically low 8.5-10.1 [facility] Comment on above: Performed By: #### C JIMENA #### [facility] [address] [place] [address] Dr. Marta Ashford Chloride [Moles/Vol] 104 mmol/L Normal 98-107 [facility] Comment on above: Performed By: #### C JIMENA #### [facility] [address] [address] [address] Marta Ashford CO2 [Moles/Vol] 23.4 mmol/L Normal 22.0-30.0 [facility] Comment on above: Performed By: #### C JIMENA #### [facility] [address] [address] [address] Marta Ashford Creatinine [Mass/Vol] 1.17 mg/dL Normal 0.66-1.25 [facility] Comment on above: Performed By: #### C JIMENA #### [facility] [address] [place] [address] Dr. Marta Ashford EGFR-AF DANISH >60 Normal >=60 [facility] Comment on above: Performed By: #### C FANTASMAMAN #### [facility] [address] [place] [address] Dr. Marta Ashford EGFR-NON AF DANISH >60 Normal >=60 [facility] Comment on above: Performed By: #### C JIMENA #### [facility] [address] [place] [address] Dr. Marta Ashford Glucose [Mass/Vol] 215 mg/dL Critically high 74-106 [facility] Comment on above: Performed By: #### C JIMENA #### [facility] [address] [place] [address] Dr. Marta Ashford Potassium [Moles/Vol] 3.5 mmol/L Normal 3.4-5.0 [facility] Comment on above: Performed By: #### C JIMENA #### [facility] [address] [place] [address] Dr. Marta Ashford Sodium [Moles/Vol] 141 mmol/L Normal 137-145 [facility] Comment on above: Performed By: #### C JIMENA #### [facility] [address] [place] [address] Dr. Marta Ashford Urea nitrogen [Mass/Vol] 23.0 mg/dL Critically high 7.0-18.0 [facility] Comment on above: Performed By: #### C JIMENA #### [facility] [address] [place] [address] Dr. Marta Ashford Urea nitrogen/Creatinine [Mass ratio] 19.7 mg/mg Normal [facility] Comment on above: Performed By: #### C JIMENA #### [facility] [address] [place] [address] Dr. Marta Ashford URINE MICROSCOPIC ONLYon BACTERIA MODERATE Abnormal NONE SEEN [facility] Comment on above: Performed By: #### A 1C #### [facility] [address] [place] [address] Dr. Marta Ashford Bacteria identified Cx Nom (U) INDICATED Normal [facility] Comment on above: Performed By: #### A 1C #### [facility] [address] [place] [address] Dr. Marta Ashford CAST NONE SEEN Normal NONE SEEN [facility] Comment on above: Performed By: #### A 1C #### [facility] [address] [place] [address] Dr. Marta Ashford Crystals LM Nom (Urine sed) NONE SEEN Normal NONE SEEN [facility] Comment on above: Performed By: #### A 1C #### [facility] [address] [place] [address] Dr. Marta Ashford Epithelial cells LM Ql (Urine sed) NONE SEEN Normal NONE SEEN /RARE [facility] Comment on above: Performed By: #### A 1C #### [facility] [address] [place] [address] Dr. Marta Ashford MUCOUS NONE SEEN Normal NONE SEEN [facility] Comment on above: Performed By: #### A 1C #### [facility] [address] [place] [address] Dr. Marta Ashford RBC 0-2 Normal 0-2 [facility] Comment on above: Performed By: #### A 1C #### [facility] [address] [place] [address] Dr. Marta Ashford WBC 10-20 Abnormal NONE SEEN [facility] Comment on above: Performed By: #### A 1C #### [facility] [address] [place] [address] Dr. Marta Ashford XR CHEST 2 [address] [...] KIZZY SINHA Date: 2021-08-16 03:11 Normal [facility] Vital Signs Date Time Vital Sign Value Performing Clinician Facility 11-18-2024 10:35-0400 Body height 162.6 cm Markos Arellano MD Work Phone: [facility] 11-18-2024 10:35-0400 Body mass index (BMI) [Ratio] 38.28 kg/m2 Markos Arellano MD Work Phone: [facility] 11-18-2024 10:35-0400 Body temperature 97.5 [degF] Markos Arellano MD Work Phone: [facility] 11-18-2024 10:35-0400 Body weight 101.15 kg Markos Arellano MD Work Phone: [facility] 11-18-2024 10:35-0400 Diastolic blood pressure 86 mm[Hg] Markos Arellano MD Work Phone: [facility] 11-18-2024 10:35-0400 Heart rate 96 /min Markos Arellano MD Work Phone: [facility] 11-18-2024 10:35-0400 Respiratory rate 20 /min Markos Arellano MD Work Phone: [facility] 11-18-2024 10:35-0400 SaO2% (BldA) [Mass fraction] 96 % Markos Arellano MD Work Phone: [facility] 11-18-2024 10:35-0400 Systolic blood pressure 134 mm[Hg] Markos Arellano MD Work Phone: [facility] 05-24-2024 13:13-0500 Body height 162.56 cm [facility] 05-24-2024 13:13-0500 Body mass index (BMI) [Ratio] 37.8 kg/m2 [facility] 05-24-2024 13:13-0500 Body weight 99.79 kg [facility] 03-08-2024 15:03-0400 Body height 162.6 cm Markos Arellano MD Work Phone: [facility] 03-08-2024 15:03-0400 Body mass index (BMI) [Ratio] 37.76 kg/m2 Markos Arellano MD Work Phone: [facility] 03-08-2024 15:03-0400 Body temperature 97.5 [degF] Markos Arellano MD Work Phone: [facility] 03-08-2024 15:03-0400 Body weight 99.79 kg Markos Arellano MD Work Phone: [facility] 03-08-2024 15:03-0400 Diastolic blood pressure 66 mm[Hg] Markos Arellano MD Work Phone: [facility] 03-08-2024 15:03-0400 Heart rate 96 /min Markos Arelalno MD Work Phone: [facility] 03-08-2024 15:03-0400 Respiratory rate 20 /min Markos Arellano MD Work Phone: [facility] 03-08-2024 15:03-0400 SaO2% (BldA) [Mass fraction] 97 % Markos Arellano MD Work Phone: [facility] 03-08-2024 15:03-0400 Systolic blood pressure 124 mm[Hg] Markos Arellano MD Work Phone: [facility] 02-19-2024 09:55-0400 Body height 162.6 cm Markos Arellano MD Work Phone: [facility] 02-19-2024 09:55-0400 Body mass index (BMI) [Ratio] 38.45 kg/m2 Markos Arellano MD Work Phone: [facility] 02-19-2024 09:55-0400 Body temperature 97.5 [degF] Markos Arellano MD Work Phone: [facility] 02-19-2024 09:55-0400 Body weight 101.61 kg Markos Arellano MD Work Phone: [facility] 02-19-2024 09:55-0400 Diastolic blood pressure 86 mm[Hg] Markos Arellano MD Work Phone: [facility] 02-19-2024 09:55-0400 Heart rate 75 /min Markos Arellano MD Work Phone: [facility] 02-19-2024 09:55-0400 Respiratory rate 20 /min Markos Arellano MD Work Phone: [facility] 02-19-2024 09:55-0400 SaO2% (BldA) [Mass fraction] 93 % Markos Arellano MD Work Phone: [facility] 02-19-2024 09:55-0400 Systolic blood pressure 150 mm[Hg] Markos Arellano MD Work Phone: [facility] 01-22-2024 10:09-0400 Body height 162.6 cm Markos Arellano MD Work Phone: [facility] 01-22-2024 10:09-0400 Body mass index (BMI) [Ratio] 37.93 kg/m2 Markos Arellano MD Work Phone: [facility] 01-22-2024 10:09-0400 Body temperature 97.11 [degF] Markos Arellano MD Work Phone: [facility] 01-22-2024 10:09-0400 Body weight 100.25 kg Markos Arellano MD Work Phone: [facility] 01-22-2024 10:09-0400 Diastolic blood pressure 82 mm[Hg] Markos Arellano MD Work Phone: [facility] 01-22-2024 10:09-0400 Heart rate 91 /min Markos Arellano MD Work Phone: [facility] 01-22-2024 10:09-0400 Respiratory rate 18 /min Markos Arellano MD Work Phone: [facility] 01-22-2024 10:09-0400 SaO2% (BldA) [Mass fraction] 97 % Markos Arellano MD Work Phone: [facility] 01-22-2024 10:09-0400 Systolic blood pressure 150 mm[Hg] Markos Arellano MD Work Phone: [facility] 06-11-2021 16:00-0500 Body height 162.56 cm Girma Tan Other [facility] Other 06-11-2021 16:00-0500 Body mass index (BMI) [Ratio] 39.75 kg/m2 Girma Tan Other [facility] Other 06-11-2021 16:00-0500 Body weight 105.05 kg Girma Tan Other [facility] Other 06-11-2021 16:00-0500 Diastolic blood pressure 89 mm[Hg] Girma Tan Other [facility] Other 06-11-2021 16:00-0500 Respiratory rate 18 /min Girma Tan Other [facility] Other 06-11-2021 16:00-0500 SaO2% (BldA) [Mass fraction] 99 % Girma Tan Other [facility] Other 06-11-2021 16:00-0500 Systolic blood pressure 158 mm[Hg] Girma Tan Other [facility] Other 03-07-2021 15:30-0400 Body height 162.56 cm Oskar Johnson Other [facility] Other 03-07-2021 15:30-0400 Body mass index (BMI) [Ratio] 39.48 kg/m2 Oskar Johnson Other [facility] Other 03-07-2021 15:30-0400 Body weight 104.33 kg Oskar Jonhson Other [facility] Other Encounters Encounter Date Encounter Type Care Provider Facility Start: 11-18-2024 End: 11-18-2024 Bessie flowsheet Markos Arellano MD Work Phone: [facility] Start: 11-18-2024 End: 11-18-2024 Bamboo flowsheet Markos Arellano MD Work Phone: [facility] Start: 11-18-2024 End: 11-18-2024 Office outpatient visit 25 minutes Markos Arellano MD Work Phone: [facility] Comment on above: Type 2 diabetes [...] (BMI) of 38.0 to 38.9 in adult ([facility]) Start: 11-18-2024 End: 11-18-2024 ambulatory MARKOS ARELLANO Not Available Start: 06-09-2024 End: 06-09-2024 Patient encounter procedure Markos Arellano MD Work Phone: [facility] Work Phone: Start: 06-09-2024 End: 06-09-2024 ambulatory Markos Arellano MD Work Phone: [facility] Work Phone: Start: 05-24-2024 End: 05-24-2024 ambulatory Markos Arellano MD Work Phone: [facility] Work Phone: Start: 05-24-2024 End: 05-24-2024 Patient encounter procedure [facility] Work Phone: Start: 03-15-2024 End: 03-15-2024 Clinisync Result Encounter Juliana Morales [employer] Work Phone: [facility] Unsolicited Start: 03-15-2024 End: 03-15-2024 Clinisync Result Encounter Juliana Morales [employer] Work Phone: [facility] Unsolicited Start: 03-15-2024 End: 03-15-2024 Orders Only Juliana Morales [employer] Work Phone: [facility] Comment on [...] patient 40-64yrs Markos Arellano MD Work Phone: [facility] Comment on above: Annual physical exam (Primary Dx); Type 2 diabetes mellitus with hyperglycemia, without long-term current use of insulin (CMS/HCC); Essential hypertension, benign (CMS/HCC); Right upper quadrant abdominal pain; Body mass index (BMI) 37.0-37.9, adult Start: 02-19-2024 End: 02-19-2024 ambulatory MARKOS ARELLANO Not Available Start: 02-05-2024 End: 02-05-2024 Orders Only Markos Arellano MD Work Phone: [facility] Comment on above: Right upper quadrant abdominal pain (Primary Dx) Start: 01-22-2024 End: 01-22-2024 Bamboo flowsheet Markos Arellano MD Work Phone: [facility] Start: 01-22-2024 End: 01-22-2024 Bamboo flowsheet Markos Arellano MD Work Phone: [facility] Start: 01-22-2024 End: 01-22-2024 ambulatory MARKOS ARELLANO Not Available Start: 01-22-2024 End: 01-22-2024 Office outpatient visit 25 minutes Markos Arellano MD Work Phone: [facility] Comment on above: Acute right-sided lo w back pain without sciatica (Primary Dx); Right upper quadrant abdominal pain; Type 2 diabetes mellitus with hyperglycemia, without long-term current use of insulin (CMS/HCC); Immunodeficiency due to conditions classified elsewhere (CMS/HCC) Start: 01-14-2024 End: 01-14-2024 Refill Markos Arellano MD Work Phone: [facility] Comment on above: Type [...] examination without abnormal findings [facility]OS [facility]LL[facility] Start: 09-10-2021 End: 09-11-[address] MARKOS ARELLANO Facility:[facility] Start: 09-10-2021 End: 09-11-2021 Encounter for general adult medical examination without abnormal findings DR MARKOS ARELLANO Facility:[facility] Start: 08-16-2021 End: 08-18-2021 Evaluation and management of inpatient DR ANNA THACKER Facility:[facility] Start: 07-02-2021 End: 07-02-2021 ambulatory Girma Tan Other [facility] Other Start: 07-02-2021 Telephone encounter [facility]ma [facility] Start: 06-24-2021 End: 06-24-2021 ambulatory Girma Tan Other [facility] Other Start: 06-24-2021 Telephone encounter Girma Chang PG Lead Customer Service Representative Start: 06-11-2021 End: 06-11-2021 ambulatory Girma Tan Other [facility] Other Start: 06-11-2021 Nutrition therapy Girma Garcia [facility] Start: 03-18-2021 End: 03-18-2021 ambulatory Stacie Muro Other [facility] Other Start: 03-18-2021 Telephone encounter Stacie Garcia [facility] Start: 03-07-2021 Office outpatient visit 25 minutes [facility] Procedures Date Procedure Procedure Detail Performing Clinician Start: 06-09-2024 Ultrasound elastogra phy of liver Markos Arellano MD Work Phone: Start: 03-15-2024 [facility] CREATININE Juliana Aic hholz [employer] Work Phone: Start: 09-10-[address] MARKOS MCINTOSH Comment on above: Performed By: #### C JIMENA #### [facility] [address] [address] [address] Marta Ashford Start: 01-28-2021 Colonoscopy Markos gómez MD Work Phone: Plan of Treatment Date Care Activity Detail Author Start: 01-28-2031 Screening for malign ant neoplasm of colon [facility] Start: 10-01-2025 Glaucoma screening Diabetes: R etinopathy Screening [facility] Start: 05-22-2025 End: 05-22-2025 Patient encounter procedure 05/22/2025 8:30 AM EST Office Visit [facility] [address] [place] [address] Markos Arellano MD [address] [place] [address] [facility] Start: 01-09-2025 Influenza vaccination Influenza Vacc ine (#1) [facility] Start: 12-24-2024 Urine screening for protein Diabetes: Urine Protein Screening [facility] Start: 11-18-2024 End: 11-18-2025 Hemoglobin A1c/Hemoglobin.total in Blood Hemoglobin A1c Lab Routine Type 2 diabetes mellitus with hyperglycemia, without long-term current use of insulin (HCC) Expected: 11/18/2024 (Approximate), Expires: 11/18/2025 [facility] Work Phone: Comment on above: Expected: 11/18/2024 (Approximate), Expires: 11/18/2025 Start: 11-18-2024 End: 11-18-2024 Patient encounter procedure 11/18/2024 10:30 AM EDT Office Visit [facility] [address] [place] [id number] Markos Arellano MD [address] [place] [id number] Arrived [facility] Comment on above: Arrived Start: 06-26-2024 Hemoglobin A1c measurement Diabetes: Hemoglobin A1C [facility] Start: 05-27-2024 End: 05-27-2024 Patient encounter procedure 05/27/2024 9:00 AM EST [facility] [address] [place] [phone] Markos Arellano MD [address] [place] [phone] [facility] Start: 05-24-2024 Actin smooth muscle IgG Ab [Units/volume] in Serum [facility] Start: 05-24-2024 Ceruloplasmin [Mass/volume] in Serum or Plasma [facility] Start: 05-24-2024 Hepatitis A virus Ab [Presence] in Serum by Immunoassay [facility] Start: 05-24-2024 Hepatitis A virus antibody, IgM type [facility] Start: 05-24-2024 Hepatitis B core ant ibody measurement [facility] Start: 05-24-2024 Hepatitis B core ant ibody measurement, IgM type [facility] Start: 05-24-2024 Hepatitis B virus osuna rface Ab [Presence] in Serum [facility] Start: 05-24-2024 IgG [Mass/volume] in Serum or Plasma [facility] Start: 05-24-2024 Lipoprotein a [Moles/volume] in Serum or Plasma [facility] Start: 05-24-2024 Mitochondria M2 IgG Ab [Units/volume] in Serum [facility] Start: 05-24-2024 [facility] Start: 03-15-2024 End: 03-15-2025 Creatinine [Mass/volume] in Serum or Plasma Creatinine Lab Routine Non-alcoholic fatty liver disease Right upper quadrant abdominal pain Expected: 03/15/2024 (Approximate), Expires: 03/15/2025 [facility] Work Phone: Comment on above: Expected: 03/15/2024 (Approximate), Expires: 03/15/2025 Start: 03-08-2024 End: 03-08-2025 CT Abdomen and Pelvis WO and W contrast IV CT abdomen pelvis w and wo IV contrast Imaging Routine Right upper quadrant abdominal pain Non-alcoholic fatty liver disease Expected: 03/08/2024, Expires: 03/08/2025 [facility] Work Phone: Comment on above: Expected: 03/08/2024 , Expires: 03/08/2025 Start: 02-19-2024 End: 02-19-2024 Patient encounter procedure [facility] Comment on above: Arrived Start: 02-05-2024 End: 02-04-2025 NM Gallbladder Views W cholecystokinin and W radionuclide IV NM hepatobiliary w cholecystokinin Imaging Routine Right upper quadrant abdominal pain Expected: 02/05/2024, Expires: 02/04/2025 [facility] Work Phone: Comment on above: Expected: 02/05/2024 , Expires: 02/04/2025 Start: 01-22-2024 End: 01-21-2025 US Abdomen limited US RUQ Imaging Routine Right upper quadrant abdominal pain Expected: 01/22/2024, Expires: 01/21/2025 [facility] Healthcare Work Phone: Comment on above: Expected: 01/22/2024 , Expires: 01/21/2025 Start: 01-10-2024 Influenza vaccination Influenza Vacc ine (#1) [facility] Start: 1981 Urine screening for protein Diabetes: Urine Protein Screening [facility] Start: 1960 Hemoglobin A1c measurement Diabetes: Hemoglobin A1C [facility] Start: 1960 Screening for malign ant neoplasm of colon [facility] Alpha 1 antitrypsin [Mass/volume] in Serum or Plasma [facility] Alpha 1 antitrypsin phenotyping [Identifier] in Serum or Plasma by Immunofixation [facility] Hepatic function panel [facility] Hepatitis B virus osuna rface Ag [Presence] in Serum or Plasma by Immunoassay [facility] Hepatitis C virus Ig G Ab [Presence] in Serum or Plasma by Immunoassay [facility] HFE gene mutations f ound [Identifier] in Blood or Tissue by Molecular genetics method Nominal [facility] Homogenous nuclear A b pattern [Titer] in Serum [facility] Nuclear Ab [Titer] i n Serum [facility] Immunizations Immunization Date Immunization Notes Care Provider Candida rossity 03-11-2024 influenza virus vacc ine, unspecified formulation Markos Arellano MD Work Phone: [facility] 02-18-2023 influenza virus vacc ine, unspecified formulation Markos Arellano MD Work Phone: [facility] Healthcare Payers Date Payer Category Payer Self-pay 2021 Private Health Insurance [id number] 1960 Unknown [id number] 2.16.84 [id number] 1960 Unknown [id number] 2.16.84 [id number] 1962 Unknown [id number] 2.16.84 [id number] 1962 Unknown [id number] 2.16.84 [id number] 1962 Unknown [id number] 2.16.8 [id number] 1962 Unknown [id number] 2.16.84 0.1.905305.3.579.2.1259 1962 Unknown [id number] 2.16.84 0.1.796213.3.579.2.1259 1962 Unknown [id number] 2.16.84 0.1.489627.3.579.2.1259 1962 Unknown [id number] 2.16.84 0.1.579195.3.579.2.1259 1959 Unknown [id number] 2.16.8 [id number] Unknown [id number] 2.16.8 [id number] Unknown [id number] 2.16.8 [id number] Social History Date Type Detail Facility Start: 02-19-2024 End: 11-18-2024 Sex Assigned At [facility] [employer] Other Start: 01-28-2021 End: 07-01-2023 Tobacco smoking status NHIS Never smoked tobacco [facility] Start: 07-01-2023 Tobacco use and exposure Smokeless tobacco non-user [facility] Healthcare Start: 02-19-2024 End: 11-18-2024 History of Social function [facility] Healthcare Start: 1960 Sex assigned at Not on file [facility] Healthcare Start: 05-24-2024 End: 06-09-2024 Sex Male (finding) [facility] Start: 1960 Sex Assigned At Male [facility] Medical Equipment Procedure Code Equipment Code Equipment Origin al Text Equipment Identifier Dates 1 each by Other route if needed (1x daily) Use as instructed [id number] Start: 04-30-2023 End: 11-18-2024 1 each by Other route Daily [id number] Start: 11-18-2024 Goals Date Patient Goal Desired [...] (BMI) of 38.0 to 38.9 in adult ([facility]) Weight loss indicated. Associated Problem(s): Type 2 [...] (BMI) of 38.0 to 38.9 in adult ([facility]) Weight loss indicated. Non-alcoholic fatty liver disease Will monitor labs and continue ozempic. Other Visit Diagnoses Type 2 diabetes mellitus with other specified complication (HCC) Erectile dysfunction due to diseases classified elsewhere documented in this encounter [facility] 05-24-2024 Evaluation note Authored May 24, 2024 [...] serologies to determine the need for vaccinations [facility] Work Phone: 1(876) 602-308511-05-2024 History of Present illness Narrative* Juliana Morales NP - 03/15/2024 8:13 AM EST Centralized scheduling from [facility] called, needs Creatinine order for pt to get CT abd/pelvis done Has been waiting since 6:45, lab wont draw pt without an order Naderer out of office, will send STAT order [place] documented in this encounterRanken [facility] [id number] History of Present illness Narrative* Markos Arellano [...] Ambulatory referral to Gastroenterology documented in this encounterRanken Jordan [facility]ty [id number] History of Present illness Narrative* Markos Arellano [...] Discussed daily Aspirin therapy. documented in this encounterRanken Jordan Pediatric Specialty [id number] History of Present illness Narrative* Markos Arellano MD - 01/22/2024 10:31 AM EDTAssociated Problem(s): Type 2 diabetes mellitus with hyperglycemia, without long-term current use of insulin ([facility]) A1C over 10 and take meds daily. [...] hyperglycemia, without long-term current use of insulin ([facility]) A1C over 10 and take meds daily. [...] Diagnoses Immunodeficiency due to conditions classified elsewhere ([facility]) documented in this encounterRanken Jordan Pediatric Specialty [id number] Evaluation note* Encounter Date Diagnosis Assessment Notes [...] Jun, Metabolic syndrome X (ICD-10 - E88.81) [facility] Other [id number] Evaluation note* Encounter Date Diagnosis Assessment Notes Treatment Notes Treatment Clinical Notes Feb, Right upper quadrant abdominal pain (ICD-10 - R10.11) Feb, Hiatal hernia (ICD-1 0 - K44.9) Feb, Esophagitis (ICD-10 - K20.90) Feb, Diverticulosis (ICD-10 - K57.90) Feb, Hemorrhoids (ICD-10 - K64.9) Feb, Fatty liver (ICD-10 - K76.0) PATIENT IS ENCOURAGED WEIGHT LOSS WILL SEND REFERRAL TO DR. NICE [facility] Other Evaluation noteNo InformationNort [facility] Other Evaluation note* Diagnosis Annual physical exam- Primary Routine general medical examination at a health care facility Type 2 diabetes mellitus with hyperglycemia, without long-term current use of insulin (CMS/HCC) Essential hypertension, benign (CMS/HCC) Essential hypertension, benign Right upper quadrant abdominal pain Body mass index (BMI) 37.0-37.9, adult documented in this encounter [facility] HealthcareEvaluation note* Diagnosis Type 2 diabetes [...] (CMS/HCC) Immunodeficiency due to conditions classified elsewhere ([facility]) Annual physical exam- Primary Routine general medical [...] disease Immunodeficiency due to conditions classified elsewhere ([facility]) documented in this encounter [facility] HealthcareEvaluation note* Diagnosis Type 2 diabetes mellitus with hyperglycemia, without long-term current use of insulin ([facility]/HCC)- Primary Essential hypertension, benign (CMS/HCC) Essential [...] dysfunction associated with type 2 diabetes mellitus ([facility]/HCC) Type II or unspecified type diabetes mellitus without mention of complication, not stated as uncontrolled Acute right-sided low back pain without sciatica- Primary Right upper quadrant abdominal pain Type 2 diabetes mellitus with hyperglycemia, without long-term current use of insulin (CMS/HCC) Immunodeficiency due to conditions classified elsewhere ([facility]) Annual physical exam- Primary Routine general medical examination at a health care facility Type 2 diabetes mellitus with hyperglycemia, without long-term current use of insulin (CMS/HCC) Essential hypertension, benign (CMS/HCC) Essential hypertension, benign Right upper quadrant abdominal pain Body mass index (BMI) 37.0-37.9, adult Type 2 diabetes mellitus with hyperglycemia, without long-term current use of insulin ([facility]/HCC)- Primary Essential hypertension, benign (CMS/HCC) Essential hypertension, benign Right upper quadrant abdominal pain Non-alcoholic fatty liver disease Immunodeficiency due to conditions classified elsewhere (CMS/HCC) Non-alcoholic fatty liver disease- Primary Right upper quadrant abdominal pain documented in this encounter [facility] HealthcareEvaluation note* Diagnosis Acute right-sided low back pain without sciatica- Primary Right upper quadrant abdominal pain Type 2 diabetes mellitus with hyperglycemia, without long-term current use of insulin (CMS/HCC) Immunodeficiency due to conditions classified elsewhere (CMS/HCC) documented in this encounter [facility] HealthcareEvaluation note* Diagnosis Type 2 diabetes mellitus with hyperglycemia, without long-term current use of insulin (CMS/HCC)- Primary documented in this encounter [facility] HealthcareEvaluation note* Diagnosis Right upper quadrant abdominal pain- Primary documented in this encounter [facility] HealthcareEvaluation noteNo assessment information availableOhio State Harding [facility] Work Phone: Evaluation note* Diagnosis Type 2 [...] History SHANNON Medical History type II diabetes [facility] Other Reason for Referral Reason FORM -EVAL AND TREAT Diagnosis 1 Fatty liver (K76.0) Referral Organization [facility] Referring Provider First Name Oskar Referring Provider Last Name Elizabeth Referring Provider Specialty Gastroenter ology Referred Organization [facility] Referred Provider Girma Tan Jr. Referred Address [address],[place], [place],[address] Referred Provider Specialty Internal Med icine Referral Priority Routine General Notes Leann Manjarrez 021 02:55:03 PM > WILL SEND FORM ONCE Deana Hogan 03/07/2021 03:03:35 PM >NOTED Specialty Diagnoses / Procedures Referred By Vijaya singleton Referred To Contact Diagnoses Right upper quadrant abdominal pain Procedures NM hepatobiliary w cholecystokinin Markos Arellano MD [address] [place] [address] Referral ID Status Reason Start Date Expiration Date V isits Requested Visits Authorized [id number] Authorized 02/05/2024 08/03/2024 3 3 Summary Purpose [...] and content) DATE CREATED AUTHOR 08/04/2022 [facility] DATE CREATED AUTHOR AUTHOR'S ORGANIZ ATION 06/19/2024 [facility] DATE CREATED AUTHOR AUTHOR'S ORGANIZ ATION 11/22/2024 [facility] Special[facility] Care Teams (unrecognized sec tion and content) Singing Waiter Or Waitress Relationship Specialty Start Date End Date Markos Arellano MD [address] [place] [phone] PCP - General Family Medicine 06/08/23 Singing Waiter Or Waitress Relationship Specialty Start Date End Date Markos Arellano MD [address] [place] [phone] PCP - General Family Medicine 06/08/23 Singing Waiter Or Waitress Relationship Specialty Start Date End Date Markos Arellano MD [address] [place] [phone] PCP - General Family Medicine 06/08/23 Singing Waiter Or Waitress Relationship Specialty Start Date End Date Markos Arellano MD [address] [place] [phone] PCP - General Family Medicine 06/08/23 Singing Waiter Or Waitress Relationship Specialty Start Date End Date Markos Arellano MD [address] [place] [phone] PCP - General Family Medicine 06/08/23 Singing Waiter Or Waitress Relationship Specialty Start Date End Date Markos Arellano MD [address] [place] [phone] PCP - General Family Medicine 06/08/23 Singing Waiter Or Waitress Relationship Specialty Start Date End Date Markos Arellano MD [address] [place] [phone] PCP - General Family Medicine 06/08/23 Singing Waiter Or Waitress Relationship Specialty Start Date End Date Markos Arellano MD [address] [place] [phone] PCP - General Family Medicine 06/08/23 Singing Waiter Or Waitress Relationship Specialty Start Date End Date Markos Arellano MD [address] [place] [phone] PCP - General Family Medicine 06/08/23 Team [...] June 09, 2024 End: June 09, 2024 Singing Waiter Or Waitress Relationship Specialty Start Date End Date Markos Arellano MD [address] [place] [phone] PCP - General Family Medicine 06/08/23 Singing Waiter Or Waitress Relationship Specialty Start Date End Date Markos Arellano MD [address] [place] [phone] PCP - General Family Medicine 06/08/23 Goals [...] BE BASED ON THE PRIMARY CLINICAL RECORDS. [employer] [facility]. provides no warranty or guarantee of the accuracy or completeness of information in this document.
[2025-02-11] MEDS: 0.9 % SODIUM CHLORIDE 1,000 ML 150 ML IV ×2 (06:25→13:44)
[2025-02-11] MEDS: IMIPENEM/CILASTATIN SODIUM 500 MG in 0.9 % SODIUM CHLORIDE 100 ML 200 MG IV ×3 (06:26→17:18)
[2025-02-11] MEDS: ENOXAPARIN SODIUM 40 MG/0.4 ML SYRINGE SUBQ ×2 (06:28→08:18)
[2025-02-11] MEDS: METOPROLOL TARTRATE 25 MG TABLET 12.5 MG PO ×3 (06:29→21:40)
[2025-02-11] MEDS: GLIMEPIRIDE 2 MG TABLET PO (08:18)
[2025-02-11] MEDS: INSULIN ASPART 300 UNIT/3 ML PEN SUBQ ×4 (08:19→21:40)
[2025-02-11] MEDS: ACETAMINOPHEN 325 MG TABLET 650 MG PO (08:56)
[2025-02-11 10:35] LABS: Hematocrit 36.8 % (42.0-54.0); Hemoglobin 12.5 g/dL (14.0-18.0); Immature Granulocytes Abs Auto 0.09 10^3/uL (0.00-0.03); Immature Granulocytes Pct Auto 0.9 % (0.0-0.5); Lymphocytes Absolute Auto 0.8 10^3/uL (1.2-3.8); Mean Corpuscular HGB Conc 34.0 g/dL (29.9-35.2); Mean Corpuscular Hemoglobin 32.9 pg (25.9-34.0); Mean Corpuscular Volume 96.8 fL (80.0-94.0); Platelet Count 111 10^3/uL (150-450); Red Blood Count 3.80 10^6/uL (4.70-6.10); White Blood Count 10.4 10^3/uL (4.0-11.0)
[2025-02-11 10:42] LABS: Anion Gap 17.9; Blood Urea Nitrogen 20.0 mg/dL (7.0-18.0); Calcium 7.9 mg/dL (8.5-10.1); Carbon Dioxide 19.8 mmol/L (21.0-32.0); Chloride 103 mmol/L (98-107); Estimated GFR (African America >60 (>=60 mL/min/1.73m^2); Estimated GFR (Non-African Ame 56 (>=60 mL/min/1.73m^2); Glucose 242 mg/dL (74-106); Potassium 3.7 mmol/L (3.5-5.1); Sodium 137 mmol/L (136-145)
[2025-02-11 10:44] LABS: INR 1.26; Partial Thromboplastin Time 36.2 sec (22.3-36.2); Prothrombin Time 13.1 sec (9.0-11.6)
[2025-02-11 10:58] LABS: Lactate/Lactic Acid 4.8 mmol/L (0.4-2.0)
[2025-02-11 10:59] LABS: Magnesium 0.9 mg/dL (1.8-2.4)
--- NOTE | 2025-02-11 11:03 | CT_ITS ---
The [address] [address] Patient Name: DAVID GUARDADO MRN: [id number] date: 1960 Sex: M Assigned Patient Location: [place] Current Patient Location: Accession/Order Number: [id number] Exam Date: 02/11/2025 11:28 Report Date: 02/11/2025 11:52 At the request of: DEBI KELLER Procedure: CT abdomen pelvis wo con CT ABDOMEN AND PELVIS WITHOUT INTRAVENOUS CONTRAST: CLINICAL HISTORY: UTI, sepsis, eval for stone COMPARISON: CT abdomen and pelvis 03/15/2024 TECHNIQUE: Spiral images were obtained through the abdomen and pelvis without intravenous contrast. This CT exam was performed using one or more following dose reduction techniques: Automated exposure control, adjustment of the mA and/or kV according to patient size, or use of iterative reconstruction technique. FINDINGS: Lung Bases: [Dependent atelectatic changes. Bibasilar scarring.] Organs:Hepatic steatosis. Gallbladder is contracted. Spleen pancreas and adrenal glands all appear normal. Kidneys demonstrate no stone or hydronephrosis. Abdominal aorta appears normal in caliber.[ GI: Stomach is grossly unremarkable. Small bowel appears nondilated. Appendix is normal. No acute colonic abnormality.[ Pelvis:[Wall thickening and inflammatory changes involving the urinary bladder. Prostatomegaly.] Peritoneum/Retroperitoneum:No free air or free fluid or lymphadenopathy.[ Abd wall/Bones:No acute findings. Osseous structures demonstrate degenerative change.[ CT/CT abdomen pelvis wo con IMPRESSION: Cystitis findings. No urinary tract calculus. Impression dictated by: Cruzito Culver Jr., D.O. 02/11/2025 11:52 AM Dictation Location: [facility]ITALGrid[facility] Electronically authenticated by: [id number] Y Date: 02/11/2025 11:52
[2025-02-11 11:11] LABS: Thyroid Stimulating Hormone 1.161 uIU/mL (0.358-3.740)
[2025-02-11] MEDS: MAGNESIUM SULFATE IN WATER 4 GM/100 ML PIGGYBACK IV (12:05)
[2025-02-11 13:38] LABS: Lactate/Lactic Acid 2.8 mmol/L (0.4-2.0)
--- NOTE | 2025-02-11 17:07 | P.HP_ITS ---
HPI H&P: HPI History of Present Illness Chief complaint: LIGHTHEADED/PAINFUL URINATION, UTI Narrative: This is a 64-year-old man who came to the emergency room at [place] and was admitted in the overnight hours for severe urinary tract infection. In the morning he continued to have fevers this morning and had resultant tachycardia from this with heart rates up to 120 and 100 30 bpm. In the ER his lactic acid was high at 2.5. In the ER his white blood count was high at 12.1. This morning his lactic acid was higher at 4.8. This prompted me to order a stat noncontrast CT scan of the abdomen pelvis (kidney stone protocol) to make sure there is not obstructive uropathy, abscess formation, or other reason for the severe urinary tract infection. The report from the CT scan shows no obstruction and no stones but does show significant bladder thickening throughout all of the bladder demonstrating a severe bacterial cystitis. On lab work his bicarb is slightly low today at 19.8 representing a small and mild metabolic acidosis. His creatinine has been stable. His hemoglobin A1c back on 12/25/2023 was 10.1. Rechecked today his hemoglobin A1c is already resulted at 9.2. His magnesium level came back astonishing really low at 0.9. Potassium level is normal at 3.7. The patient says that he is feeling better today. He denies dysuria today. He said for a few days at home he was getting fevers and chills and shaking chills. He was getting low back pain that he thought was recrudescence of low back pain from an injury that he had in the spring time. 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 He has a history of diabetes. About 3 or 4 years ago he had to be hospitalized for several days for what he describes as a urinary tract infection, a kidney infection (pyelonephritis) and bacteremia. So he has certainly been through severe urinary tract infections like this before. The patient admits that his diabetes usually has his blood sugar running in the 200s. He says that sometimes it can get into the upper 100s, like 190 .... but most of the readings are in the 200s. Opioid HPI Opioid Management Most Recent Pain and Opioid Data: Last Pain Scale 10 10/04/24, 11:38 Last Pain Assessment Today, 03:00 Last MAR Pain Assessment 02/10/25, 23:17 Last ORT Total Score 0 Today, 02:43 Last ORT Risk Category Low Risk Today, 02:43 Review of Systems ROS Narrative 10 point review of systems is checked an d is negative except as mentioned elsewhere in this documentation. 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 [employer] Known occupational exposures/hazards: Yes Highest level of school completed/degree received: 9th grade Do you want help with school or training: No Are you now , , , , never or living with a partner: Little interest or pleasure in doing things: not at all Feeling down, depressed, or hopeless: not at all Meds Home Medications and Allergies Home Medications ?Medication ?Instructions ?Recorded ?Confirmed ?Type ibuprofen 800 mg tablet 800 mg PO Q8H PRN pain #20 t abs 10/04/24 02/11/25 Rx metformin 1,000 mg tablet 1,000 mg PO BID 10/04/2409/02 History semaglutide 0.25 mg or 0.5 mg (2 0.25 mg subcut QWEEK 10/04/24 02/11/25 History mg/1.5 mL) subcutaneous pen injector (Ozempic) glimepiride 4 mg tablet 4 mg PO BID 10/07/24 5 History lisinopril 40 mg tablet 40 mg PO DAILY 10/07/2409/02 History Allergies Allergy/AdvReac Type Severity Reaction Status Date / Time No Known Drug Allergies Allergy Verified 02/10/25 23:01 Exam Narrative Exam Narrative: General: Sleeping in bed this afternoon. Wakes up normally. Psychiatric: Mood and affect are normal. Neurologic: A and O x 3. Moves all 4 extremities grossly well. Back: Complained of pain in the very low lumbar to sacral region which is not reproducible. No flank pain over the kidneys to Joss's punch. Skin: Skin is warm and dry well-perfused. Eyes: EOMI. Conjunctive sclera clear. Mouth: Oropharynx is clear, mucosal membranes are moist, tongue is midline. Pulmonary: Clear to auscultation throughout. No wheezing. No rhonchi. No crackles. Cardiac: Regular rate and rhythm. No rubs or gallops to auscultation. Right now has a heart rate about 95 bpm. This morning on telemetry his heart rate was 120 bpm when he was having fever and some shaking chills and rigors. GI: Abdomen soft, nontender to palpation, no right upper quadrant or left upper quadrant pain. No pain in the suprapubic region when I tried recreate pain in his bladder. Lower extremities: No edema of ankles bilaterally. No swelling or knots or cords in the calves bilaterally in the legs. Constitutional Vital Signs, click to edit/add: Last Vital Signs Temp 98.3 F 02/11/25 16:10 Pulse 96 H 02/11/25 16:10 Resp 16 02/11/25 16:10 BP 118/75 02/11/25 16:10 Pulse Ox 94 L 02/11/25 16:10 O2 Del Method Room Air 02/11/25 16:10 Results Labs Labs: Short CBC 02/10/25 02/11/25 Range/Units 22:59 10:13 WBC 12.1 H 10.4 (4.0-11.0) 10^3/uL Hgb 13.3 L 12.5 L (14.0-18.0) g/dL Hct 38.9 L 36.8 L (42.0-54.0) % Plt Count 143 L 111 L (150-450) 10^3/uL BMP 02/10/25 02/11/25 22:59 10:13 Sodium 138 137 Potassium 3.7 3.7 Chloride 102 103 Carbon Dioxide 22.4 19.8 L BUN 19.0 H 20.0 H Creatinine 1.22 1.29 Glucose 240 H 242 H Calcium 8.5 7.9 L Urine 02/10/25 Range/Units 23:47 Urine Color Yellow (YELLOW) Urine Clarity Cloudy A (CLEAR) Urine pH 5.5 (5.0-9.0) Ur Specific [place] 1.020 (1.005-1.025) Urine Protein 100 A (NEG/TRACE) mg/dL Urine Glucose (UA) 250 A (NEGATIVE) mg/dL Assessment and Plan Assessment and Plan (1) Acute cystitis without hematuria: Assessment and Plan: This is a complicated bacterial urinary tract infection. Blood cultures x 2 and urine culture are obtained and pending. (2) Complicated urinary tract infection: Assessment and Plan: As above. Patient had a similar episode about 3 or 4 years ago. (3) Sepsis: Assessment and Plan: Persistently tachycardic up to 121 bpm, Respiratory rate persistently elevated at 25, White blood cells high at 12.1, Lactic acid level persistently elevated: 2.5 on admission, 4.8 this morning, and improved to 2.8 this afternoon. Strong clinical likelihood of bacteremia, which is likely to be a gram-negative bacteremia. Temperature up to 103.2 Fahrenheit on presentation. Plan Assessment: Acute bacterial cystitis/complicated urinary tract infection causing: Sepsis. Diabetes mellitus type 2, uncontrolled, with hyperglycemia. Plan: Hospital admission with inpatient status. Patient is getting IV fluids and antibiotics along with a Medicare sepsis bundle plan. He is covered if bacteremia were to be present by continuing the imipenem. Will consider restarting his metformin tomorrow if he is more clinically stable. Sliding scale insulin to help manage hyperglycemia. DVT prophylaxis with Lovenox 40 mg subcutaneously daily.
[2025-02-11] MEDS: GLIMEPIRIDE 2 MG TABLET 4 MG PO (21:40)
[2025-02-12] VITALS (20 sets, daily range): BP systolic 133–154; BP diastolic 82–95; PULSE 74–106; TEMP 36.6–37; O2SAT 93–97
[2025-02-12] MEDS: IMIPENEM/CILASTATIN SODIUM 500 MG in 0.9 % SODIUM CHLORIDE 100 ML 200 MG IV ×4 (01:16→17:00)
[2025-02-12] MEDS: FUROSEMIDE 20 MG TABLET PO (06:10)
[2025-02-12 06:56] LABS: Hematocrit 36.1 % (42.0-54.0); Hemoglobin 12.1 g/dL (14.0-18.0); Immature Granulocytes Abs Auto 0.10 10^3/uL (0.00-0.03); Immature Granulocytes Pct Auto 0.7 % (0.0-0.5); Lymphocytes Absolute Auto 2.0 10^3/uL (1.2-3.8); Mean Corpuscular HGB Conc 33.5 g/dL (29.9-35.2); Mean Corpuscular Hemoglobin 32.6 pg (25.9-34.0); Mean Corpuscular Volume 97.3 fL (80.0-94.0); Platelet Count 105 10^3/uL (150-450); Red Blood Count 3.71 10^6/uL (4.70-6.10); White Blood Count 13.5 10^3/uL (4.0-11.0)
[2025-02-12 07:01] LABS: Alanine Aminotransferase 29 U/L (16-63); Albumin Globulin Ratio 0.6; Albumin Level 2.4 g/dL (3.4-5.0); Alkaline Phosphatase 57 U/L (46-116); Anion Gap 13.7; Aspartate Amino Transferase 20 U/L (15-37); Blood Urea Nitrogen 15.0 mg/dL (7.0-18.0); Calcium 8.4 mg/dL (8.5-10.1); Carbon Dioxide 23.4 mmol/L (21.0-32.0); Chloride 106 mmol/L (98-107); Estimated GFR (African America >60 (>=60 mL/min/1.73m^2); Estimated GFR (Non-African Ame >60 (>=60 mL/min/1.73m^2); Globulin 4.2 g/dL; Glucose 162 mg/dL (74-106); Potassium 4.1 mmol/L (3.5-5.1); Sodium 139 mmol/L (136-145); Total Protein 6.6 g/dL (6.4-8.2)
[2025-02-12] MEDS: ENOXAPARIN SODIUM 40 MG/0.4 ML SYRINGE SUBQ (08:10)
[2025-02-12] MEDS: METOPROLOL TARTRATE 25 MG TABLET 12.5 MG PO ×2 (08:11→21:50)
[2025-02-12] MEDS: GLIMEPIRIDE 2 MG TABLET 4 MG PO ×2 (08:11→21:50)
[2025-02-12] MEDS: INSULIN ASPART 300 UNIT/3 ML PEN SUBQ ×4 (08:11→21:52)
[2025-02-12] MEDS: MAGNESIUM OXIDE 400 MG TABLET PO ×2 (11:07→21:50)
--- NOTE | 2025-02-12 15:24 | PM.PN ---
Progress Note: Subjective Subjective Interval history: White blood count remains elevated today at 13.5. The patient reports that he has not noticed fevers or illness or malaise since yesterday. He is noticing some suprapubic pressure with urination but thinks it is getting better. He was worried that he was very constipated but then he had a good bowel movement. He denies shortness of breath. Denies chest pain. His vague low back pain seems to be gone. He discusses how he has been working nonstop shifts of 12-hour shifts for a long time and he has felt very tired and worn out from that. I discussed with the patient that he needs to give better control of his diabetes. His hemoglobin A1c is 9.2. If he controls that better he will not have any glucose in the urine and that will reduce the risk of urinary tract infections. He plans to see a urologist on the outpatient basis as he may have early prostate hypertrophy. He also has a low magnesium at 0.9. He has been taking PPI at home for a long time but recently stopped taking it so I think that with an oral magnesium supplement and if he does not need the PPI at home and a little bit of sun exposure to get him adequate vitamin D then his magnesium levels can improve at home over time. Right now the blood cultures and urine cultures do not have any results back yet. Hopefully we will get results back on that in the next 24 to 48 hours as the patient is eager to go home as soon as he is well enough to do so. Exam Narrative Exam Narrative: General: Sleeping in bed this afternoon (again... and wakes up with a startle, which is suggestive of obstructive sleep apnea.) Skin: Skin is warm and dry well-perfused. Eyes: EOMI. Conjunctive sclera clear. Pulmonary: Clear to auscultation throughout. No wheezing. No rhonchi. No crackles. Cardiac: Regular rate and rhythm. No rubs or gallops to auscultation. Right now has a heart rate about 95 bpm. This morning on telemetry his heart rate was 120 bpm when he was having fever and some shaking chills and rigors. GI: Abdomen soft, nontender to palpation, no right upper quadrant or left upper quadrant pain. No pain in the suprapubic region when I tried recreate pain in his bladder. Lower extremities: No edema of ankles bilaterally. No swelling or knots or cords in the calves bilaterally in the legs. Constitutional Vital Signs, click to edit/add: Last Vital Signs Temp 98.4 F 02/12/25 11:23 Pulse 94 H 02/12/25 14:00 Resp 18 02/12/25 11:23 BP 141/90 02/12/25 11:23 Pulse Ox 95 02/12/25 11:23 O2 Del Method Room Air 02/12/25 11:23 Progress Note: Objective Labs Labs: Short CBC 02/12/25 Range/Units 06:11 WBC 13.5 H (4.0-11.0) 10^3/uL Hgb 12.1 L (14.0-18.0) g/dL Hct 36.1 L (42.0-54.0) % Plt Count 105 L (150-450) 10^3/uL BMP 02/12/25 06:11 Sodium 139 Potassium 4.1 Chloride 106 Carbon Dioxide 23.4 BUN 15.0 Creatinine 0.82 Glucose 162 H Calcium 8.4 L Liver Function 02/12/25 Range/Units 06:11 Total Bilirubin 0.7 (0.2-1.0) mg/dL AST 20 (15-37) U/L ALT 29 (16-63) U/L Alkaline Phosphatase 57 (46-116) U/L Albumin 2.4 L (3.4-5.0) g/dL Progress Note: A&P Assessment and Plan (1) Acute cystitis without hematuria: (2) Complicated urinary tract infection: (3) Sepsis: (4) Uncontrolled diabetes mellitus: Plan Assessment: Acute bacterial cystitis/complicated urinary tract infection causing: Sepsis. Diabetes mellitus type 2, uncontrolled, with hyperglycemia, A1C 9.2. Clinical suspicion of ZACARIAS vs severe sleep/wake cycle disorder+insomnia due to long hours of employmennt. Hypomagnesemia. Plan:. Continue IV imipenem. Will consider restarting his metformin tomorrow if he is more clinically stable. Sliding scale insulin to help manage hyperglycemia. Starting Lantus 15 units subcutaneously twice a day which can be held if his blood sugars better than 130. DVT prophylaxis with Lovenox 40 mg subcutaneously daily. Starting magnesium oxide 400 mg twice daily. Encouraged the patient to ambulate and make sure he will be steady and appropriate for discharge in the next 24 to 48 hours.
[2025-02-12] MEDS: SITAGLIPTIN PHOSPHATE 50 MG TABLET 100 MG PO (16:32)
[2025-02-12] MEDS: INSULIN GLARGINE 300 UNIT/3 ML INSULN.PEN 15 UNIT SQ (21:52)
[2025-02-13] VITALS (21 sets, daily range): BP systolic 148–163; BP diastolic 80–96; PULSE 84–100; TEMP 36.7–38.1; O2SAT 93–96
[2025-02-13] MEDS: IMIPENEM/CILASTATIN SODIUM 500 MG in 0.9 % SODIUM CHLORIDE 100 ML 200 MG IV ×2 (00:24→06:21)
[2025-02-13 06:21] LABS: Hematocrit 38.2 % (42.0-54.0); Hemoglobin 12.8 g/dL (14.0-18.0); Immature Granulocytes Abs Auto 0.06 10^3/uL (0.00-0.03); Immature Granulocytes Pct Auto 0.5 % (0.0-0.5); Lymphocytes Absolute Auto 2.0 10^3/uL (1.2-3.8); Mean Corpuscular HGB Conc 33.5 g/dL (29.9-35.2); Mean Corpuscular Hemoglobin 32.2 pg (25.9-34.0); Mean Corpuscular Volume 96.2 fL (80.0-94.0); Platelet Count 125 10^3/uL (150-450); Red Blood Count 3.97 10^6/uL (4.70-6.10); White Blood Count 12.0 10^3/uL (4.0-11.0)
[2025-02-13] MEDS: ACETAMINOPHEN 325 MG TABLET 650 MG PO ×2 (06:21→20:45)
[2025-02-13 06:35] LABS: Anion Gap 15.8; Blood Urea Nitrogen 16.0 mg/dL (7.0-18.0); Calcium 8.8 mg/dL (8.5-10.1); Carbon Dioxide 23.3 mmol/L (21.0-32.0); Chloride 104 mmol/L (98-107); Estimated GFR (African America >60 (>=60 mL/min/1.73m^2); Estimated GFR (Non-African Ame >60 (>=60 mL/min/1.73m^2); Glucose 176 mg/dL (74-106); Potassium 4.1 mmol/L (3.5-5.1); Sodium 139 mmol/L (136-145)
--- NOTE | 2025-02-13 08:20 | CM.NOTE ---
Rounds made with Dr. Ruelas, discussed plan of care. No discharge today, continue IV antibiotics as ordered.
[2025-02-13] MEDS: GLIMEPIRIDE 2 MG TABLET 4 MG PO ×2 (09:21→20:45)
[2025-02-13] MEDS: SITAGLIPTIN PHOSPHATE 50 MG TABLET 100 MG PO (09:21)
[2025-02-13] MEDS: MAGNESIUM OXIDE 400 MG TABLET PO ×2 (09:22→20:45)
[2025-02-13] MEDS: METOPROLOL TARTRATE 25 MG TABLET 12.5 MG PO (09:22)
[2025-02-13] MEDS: ENOXAPARIN SODIUM 40 MG/0.4 ML SYRINGE SUBQ (09:22)
[2025-02-13] MEDS: FUROSEMIDE 20 MG TABLET PO (09:29)
[2025-02-13] MEDS: INSULIN ASPART 300 UNIT/3 ML PEN SUBQ ×3 (09:31→17:37)
[2025-02-13] MEDS: INSULIN GLARGINE 300 UNIT/3 ML INSULN.PEN 15 UNIT SQ (09:32)
[2025-02-13] MEDS: FLU VACC TS2025-26(6MOS UP)/PF FLULAVAL 45 MCG/0.5 ML SYRINGE 45 ML IM (09:44)
--- NOTE | 2025-02-13 12:35 | PM.PN ---
Progress Note: Subjective Subjective Interval history: White blood count remains elevated today at 13.5. The patient reports that he has not noticed fevers or illness or malaise since yesterday. He is noticing some suprapubic pressure with urination but thinks it is getting better. He was worried that he was very constipated but then he had a good bowel movement. He denies shortness of breath. Denies chest pain. His vague low back pain seems to be gone. He discusses how he has been working nonstop shifts of 12-hour shifts for a long time and he has felt very tired and worn out from that. I discussed with the patient that he needs to give better control of his diabetes. His hemoglobin A1c is 9.2. If he controls that better he will not have any glucose in the urine and that will reduce the risk of urinary tract infections. He plans to see a urologist on the outpatient basis as he may have early prostate hypertrophy. He also has a low magnesium at 0.9. He has been taking PPI at home for a long time but recently stopped taking it so I think that with an oral magnesium supplement and if he does not need the PPI at home and a little bit of sun exposure to get him adequate vitamin D then his magnesium levels can improve at home over time. Right now the blood cultures and urine cultures do not have any results back yet. Hopefully we will get results back on that in the next 24 to 48 hours as the patient is eager to go home as soon as he is well enough to do so. 10/6 Patient is feeling better. No abdominal pain. Some frequency. No chest pain. No fever chills Exam Narrative Exam Narrative: [pt is awake and alert. oriented to place, time and person HEENT: [place] conjunctiva and NL buccal mucosa Neck: Supple, no tenderness Endocrine: No Thyromegaly. Vascular: No JVD or carotid bruit. Lymphatic: No cervical lymphadenopathy. Chest: CTA no DTP. Heart RRR, no extra sound or murmur. Abd: Soft, no tenderness, no rebound and no rigidity. Increase abd girth therefore clinically I could not exclude the possibility of intra abd mass or organomegaly. LE: No cyanosis or clubbing, no varices or edema. Neuro: A A O. Nl speech, comprehension and attention. Nl and symetrical motor and tone examination through out. []] Constitutional Vital Signs, click to edit/add: Last Vital Signs Temp 98.8 F 02/13/25 11:56 Pulse 84 02/13/25 12:00 Resp 18 02/13/25 08:00 BP 148/80 H 02/13/25 11:56 Pulse Ox 95 02/13/25 11:56 O2 Del Method Room Air 02/13/25 11:56 Progress Note: Objective Labs Labs: Short CBC 02/13/25 Range/Units 05:55 WBC 12.0 H (4.0-11.0) 10^3/uL Hgb 12.8 L (14.0-18.0) g/dL Hct 38.2 L (42.0-54.0) % Plt Count 125 L (150-450) 10^3/uL BMP 02/13/25 05:55 Sodium 139 Potassium 4.1 Chloride 104 Carbon Dioxide 23.3 BUN 16.0 Creatinine 0.86 Glucose 176 H Calcium 8.8 Progress Note: A&P Assessment and Plan (1) Acute cystitis without hematuria: (2) Complicated urinary tract infection: (3) Sepsis: (4) Uncontrolled diabetes mellitus: Plan Continue antibiotic pending culture report. Continue BP meds Continue sliding scale. Continue to monitor electrolytes and kidney function. Continue Lovenox for DVT prophylaxis.
[2025-02-13] MEDS: LISINOPRIL 10 MG TABLET PO ×2 (13:22→20:45)
[2025-02-13] MEDS: CEFTAZIDIME 1,000 MG in 0.9 % SODIUM CHLORIDE 50 ML 100 MG IV (17:40)
[2025-02-13] MEDS: METOPROLOL TARTRATE 25 MG TABLET PO (20:45)
[2025-02-13] MEDS: SENNOSIDES/DOCUSATE SODIUM 1 TAB TABLET PO (20:45)
[2025-02-14] VITALS (8 sets, daily range): BP systolic 129–152; BP diastolic 82–97; PULSE 79–91; TEMP 36.7–36.8; O2SAT 93–96
[2025-02-14] MEDS: CEFTAZIDIME 1,000 MG in 0.9 % SODIUM CHLORIDE 50 ML 100 MG IV ×2 (01:29→11:30)
[2025-02-14 05:53] LABS: Hematocrit 39.7 % (42.0-54.0); Hemoglobin 13.6 g/dL (14.0-18.0); Mean Corpuscular HGB Conc 34.3 g/dL (29.9-35.2); Mean Corpuscular Hemoglobin 32.9 pg (25.9-34.0); Mean Corpuscular Volume 96.1 fL (80.0-94.0); Platelet Count 148 10^3/uL (150-450); Red Blood Count 4.13 10^6/uL (4.70-6.10); White Blood Count 7.0 10^3/uL (4.0-11.0)
[2025-02-14 06:05] LABS: Anion Gap 15.2; Blood Urea Nitrogen 18.0 mg/dL (7.0-18.0); Calcium 9.6 mg/dL (8.5-10.1); Carbon Dioxide 27.2 mmol/L (21.0-32.0); Chloride 103 mmol/L (98-107); Estimated GFR (African America >60 (>=60 mL/min/1.73m^2); Estimated GFR (Non-African Ame >60 (>=60 mL/min/1.73m^2); Glucose 177 mg/dL (74-106); Potassium 4.4 mmol/L (3.5-5.1); Sodium 141 mmol/L (136-145)
[2025-02-14] MEDS: INSULIN ASPART 300 UNIT/3 ML PEN SUBQ (08:27)
[2025-02-14 09:10] LABS: Magnesium 1.6 mg/dL (1.8-2.4)
[2025-02-14] MEDS: INSULIN GLARGINE 300 UNIT/3 ML INSULN.PEN 15 UNIT SQ (09:30)
[2025-02-14] MEDS: LISINOPRIL 10 MG TABLET PO (09:33)
[2025-02-14] MEDS: SITAGLIPTIN PHOSPHATE 50 MG TABLET 100 MG PO (09:34)
[2025-02-14] MEDS: METOPROLOL TARTRATE 25 MG TABLET PO (09:34)
[2025-02-14] MEDS: GLIMEPIRIDE 2 MG TABLET 4 MG PO (09:35)
[2025-02-14] MEDS: MAGNESIUM OXIDE 400 MG TABLET PO (09:35)
[2025-02-14] MEDS: ENOXAPARIN SODIUM 40 MG/0.4 ML SYRINGE SUBQ (09:35)
--- NOTE | 2025-02-14 10:21 | CM.NOTE ---
Rounds made with . Plan is for discharge home today. Follow up with PCP. Work excuse was given to pt and placed on patients chart.
[2025-02-14 11:01] LABS: Glucose Urine UA 100 mg/dL (NEGATIVE)
[2025-02-14 11:16] LABS: Crystals Seen? None Seen #/HPF (None Seen)
[2025-02-14 11:17] LABS: Cast Seen? SEEN #/LPF (NONE SEEN); Urine Culture Indicated YES-FRMC
--- NOTE | 2025-02-14 11:54 | P.DS_ITS ---
DS: Providers Provider Date of admission: 02/11/25 02:30 Primary care physician: Markos Neely MD DS: Diagnosis Discharge Diagnosis (1) Acute cystitis without hematuria: (2) Complicated urinary tract infection: (3) Sepsis: (4) Uncontrolled diabetes mellitus: Plan As listed above, below and others that are not listed DS: Summary Hospital Course Hospital Course: Mr. Badillo is a 64-year-old gentleman who came in with dysuria and frequency. He was found to have acute cystitis Acute cystitis. 58-75 WBC. Evidence of cystitis on CT. Patient was admitted and started on IV fluid infusion and antibiotic. Blood cultures negative Urine cultures positive for less than 9000 colonies of organism. I suspect that the urine sample was collected after patient had received antibiotic. Repeat UA showed only 5-10 WBC. Patient will be discharged home on oral cefuroxime. Hypertension, tachycardia and sepsis picture on presentation Resolved. Lactic acid is back to normal. Tachycardia and fever had resolved Due to tachycardia, patient was started on beta-abrahan which was increased gradually to achieve good control. His lisinopril dose was cut down from 40 down to 20 mg daily. Patient to be discharged home on Toprol-XL 50 mg daily and lisinopril 20 mg daily. Diabetes Patient is to resume preadmission home medications. Follow-up with PCP for adjustment Patient was instructed to do the following: Check your blood sugar 3 times a day before meals. Document these numbers on a blood glucose log and bring them with you to your follow-up appointment with your primary care doctor. Communicate with your primary care doctor or customer sales specialist if your blood sugar is under 100 or above 300 on 2 consecutive checks. Communicate with your primary care doctor or customer sales specialist if you have any questions about your diabetes medications. Signs of a low blood sugar include sweating, racing heart, dizziness and/or weakness. Check your blood sugar if you have any of the symptoms. Hypomagnesemia Magnesium supplementation Normal potassium and phosphorus level Anemia, no evidence of acute blood loss. Patient will likely require to have anemia workup to be done in the outpatient setting to be handled by PCP in collaboration with other needed outpatient providers. This may include but not limited to EGD, colonoscopy, referral to see hematology and other needed age-appropriate cancer screening. Chronic, subacute medical conditions not listed above, abnormal labs and imaging. These would need to be addressed. Could be addressed later on or in the outpatient setting by PCP collaboration with other needed outpatient providers when time and condition are appropriate. Patient has multiple complex medical issues as listed above and others that are not listed. All appear to be stable. I do not have any clear or strong clinical justification to extend inpatient hospitalization. Patient however will require close and frequent monitoring as well as additional work-up, investigation and therapeutic intervention that could take place from this point on post discharge. That is to prevent relapse, decompensation, rehospitalization and other medical implications.. I instructed patient to ask her primary care doctor to obtain [facility] record entirely to address abnormalities seen on labs and imaging that I have and have not addressed during this hospitalization, follow-up on pending blood work, imaging and pathology is if available and to follow-up on needed medical care in the outpatient setting. Time Spent with Patient Time attestation: Total time spent providing and/or coordinating discharge services: Time spent: greater than 30 minutes Exam Narrative Exam Narrative: [pt is awake and alert. oriented to place, time and person, morbidly obese HEENT: [place] conjunctiva and NL buccal mucosa Neck: Supple, no tenderness Endocrine: No Thyromegaly. Vascular: No JVD or carotid bruit. Lymphatic: No cervical lymphadenopathy. Chest: CTA no DTP. Heart RRR, no extra sound or murmur. Abd: Soft, no tenderness, no rebound and no rigidity. Increase abd girth therefore clinically I could not exclude the possibility of intra abd mass or organomegaly. LE: No cyanosis or clubbing, no varices or edema. Neuro: A A O. Nl speech, comprehension and attention. Nl and symetrical motor and tone examination through out. []] Constitutional Vital Signs, click to edit/add: Last Vital Signs Temp 98.0 F 02/14/25 07:56 Pulse 90 02/14/25 09:46 Resp 18 02/14/25 07:56 BP 129/82 02/14/25 09:33 Pulse Ox 96 02/14/25 07:56 O2 Del Method Room Air 02/14/25 04:00 DS: Data Data Completed and Pending Labs on day of discharge: Labs from last 24 hours 02/14/25 02/14/25 02/14/25 09:45 07:50 05:32 WBC 7.0 RBC 4.13 L Hgb 13.6 L Hct 39.7 L MCV 96.1 H MCH 32.9 MCHC 34.3 RDW 12.4 Plt Count 148 L MPV 11.5 Sodium 141 Potassium 4.4 Chloride 103 Carbon Dioxide 27.2 Anion Gap 15.2 BUN 18.0 Creatinine 0.91 Est GFR ( Amer) >60 Est GFR (Non-Af Amer) >60 BUN/Creatinine Ratio 19.8 Glucose 177 H Calcium 9.6 Phosphorus 5.1 H Magnesium 1.6 L Urine Color Yellow Urine Clarity Clear Urine pH 5.5 Ur Specific [place] 1.015 Urine Protein Trace Urine Glucose (UA) 100 A Urine Ketones Negative Urine Occult Blood Negative Urine Nitrite Negative Urine Bilirubin Negative Urine Urobilinogen 0.2 Ur Leukocyte Esterase Small A Urine RBC None seen Urine WBC 5-10 A Ur Squamous Epith Cells Few A Urine Crystals None seen Urine Bacteria Trace A Urine Casts Seen A Hyaline Casts Few Urine Mucus Trace A Ur Culture Indicated? Yes-[facility] [place] POC Glucose 174 H 02/13/25 02/13/25 21:50 17:03 WBC RBC Hgb Hct MCV MCH MCHC RDW Plt Count MPV Sodium Potassium Chloride Carbon Dioxide Anion Gap BUN Creatinine Est GFR ( Amer) Est GFR (Non-Af Amer) BUN/Creatinine Ratio Glucose Calcium Phosphorus Magnesium Urine Color Urine Clarity Urine pH Ur Specific [place] Urine Protein Urine Glucose (UA) Urine Ketones Urine Occult Blood Urine Nitrite Urine Bilirubin Urine Urobilinogen Ur Leukocyte Esterase Urine RBC Urine WBC Ur Squamous Epith Cells Urine Crystals Urine Bacteria Urine Casts Hyaline Casts Urine Mucus Ur Culture Indicated? POC Glucose 134 H 249 H Preliminary micro results at discharge 02/14/25 09:45 Urine Culture - Preliminary Urine,Clean Catch Pending - Specimen sent to [facility] 02/10/25 23:48 Blood Culture Result 2 - Preliminary Blood - Right Forearm NO GROWTH AT 36-48 HOURS. FINAL TO FOLLOW. 02/10/25 23:47 Blood Culture Result 1 - Preliminary Blood - Left Forearm NO GROWTH AT 36-48 HOURS. FINAL TO FOLLOW. Discharge Plan Discharge Disposition: Home, Self-Care Condition: Fair Discharge Medications: New magnesium oxide 400 mg (241.3 mg magnesium) Tablet 400 mg PO DAILY Qty: 300 2RF metoprolol succinate [Toprol XL] 50 mg tablet extended release 24 hr 50 mg PO DAILY Qty: 30 2RF cefuroxime axetil 500 mg tablet 500 mg PO BID Qty: 12 0RF Continued Ozempic 0.25 mg or 0.5 mg(2 mg/1.5 mL) pen injector 0.25 mg subcut QWEEK Rx Instructions: for 4 weeks metformin 1,000 mg tablet 1,000 mg PO BID glimepiride 4 mg tablet 4 mg PO BID Rx Instructions: in morning and at bedtime Changed ibuprofen 800 mg tablet 400 mg PO Q8H PRN (Reason: pain) Qty: 20 0RF lisinopril 40 mg tablet 20 mg PO DAILY Qty: 0 0RF Print Language: Swedish Patient Instructions: Urinary Tract Infection in Men (DC), Sepsis (DC) Activity Restrictions/Additional Instructions: I may not have addressed or treated all of your medical illnesses or the abnormal blood work or imaging studies during this hospitalization. Please ask your primary care provider to obtain [facility] records entirely to follow up on all of the abnormal physical, laboratory, and imaging findings that I have not addressed. Please return back to the emergency room or seek medical attention if your symptoms worsen or return. Check your blood sugar 3 times a day before meals. Document these numbers on a blood glucose log and bring them with you to your follow-up appointment with your primary care doctor. Communicate with your primary care doctor or customer sales specialist if your blood sugar is under 100 or above 300 on 2 consecutive checks. Communicate with your primary care doctor or customer sales specialist if you have any questions about your diabetes medications. Signs of a low blood sugar include sweating, racing heart, dizziness and/or weakness. Check your blood sugar if you have any of the symptoms. Discharging you from [facility] does not mean that your medical care ends here and now. You may still need additional monitoring, work up, investigation, and treatment plan to be handled from this point on by out patient providers including your primary care provider and specialists. For any medication question, please contact your retail pharmacist or your primary care provider. Thank you. Forms: Portal Instructions Follow Up Appointments: 02/23 @ 11:30am with Dr. Neely [phone]
--- NOTE | 2025-02-14 17:26 | DIETREC ---
PO intakes of regular diet are good, frequently 100%, and appear to meet pt?s estimated nutrient requirements. No wound or edema noted. No dietary concerns at this time. Will continue to follow PRN.
--- NOTE | 2025-02-16 13:22 | CM.DCFOLLOWU ---
1st attempt 02/16/25, no answer
== END 2025-02-14 13:05 | disposition home or self-care (01) | DRG 872 ==
LOC: ER 02-11 01:54 → MS 02-11 02:34
PROVIDERS: Hospitalist; Admitting Provider Internal Medicine; Emergency Provider Emergency Medicine; PCP Family Medicine; Visit Provider Internal Medicine
DX: A41.9 Sepsis, unspecified organism (principal); N30.00 Acute cystitis without hematuria; Z87.440 Personal history of urinary (tract) infections; E11.65 Type 2 diabetes mellitus with hyperglycemia; Z79.84 Long term (current) use of oral hypoglycemic drugs; Z79.85 Long-term (current) use of injectable non-insulin antidiabetic drugs; I10 Essential (primary) hypertension; E83.42 Hypomagnesemia; D64.9 Anemia, unspecified; E66.01 Morbid (severe) obesity due to excess calories; Z68.37 Body mass index [BMI] 37.0-37.9, adult
CPT/HCPCS: 36415; 71045; 74176; 80048; 80053; 81001; 82948; 83036; 83605; 83735; 84100; 84443; 85025; 85027; 85378; 85610; 85730; 87040; 87086; 87804; 87811; 93005; 96361; 96365; 99285; J0696; J0713; J0743; J1650; J3475